=== PATIENT | female | born 1945 | race Asian ===

== ENCOUNTER → 2017-02-08 | Outpatient (CLI) | payer OTHER ==
[~2017-02-08] MED LIST: ALEN70TA4 PO; ASCO500C5 PO; ASPI-391 PO; ASPI81TA28 PO; CALC-452 PO; DIPH25TA24 PO; LPT10 PO; LUTE20CA PO; TYL325X PO; VITA400C3 PO; lovaza
== END | disposition home or self-care (01) ==
LOC: C.PAPS 13:11
PROVIDERS: ATTEND Family Medicine
DX: Z01.411 Encounter for gynecological examination (general) (routine) with abnormal findings (principal); N95.2 Postmenopausal atrophic vaginitis

== ENCOUNTER → 2017-03-22 | Outpatient (CLI) | payer OTHER ==
--- NOTE | 2017-03-22 15:07 | MAMMOGRAPHY REPORT ---
BILATERAL DIGITAL SCREENING MAMMOGRAM TOMOSYNTHESIS WITH CAD: 03/22/2017 CLINICAL HISTORY: Routine screening. TECHNIQUE: Breast tomosynthesis in addition to standard 2D mammography was performed. Current study was also evaluated with a Computer Aided Detection (CAD) system. COMPARISON: Comparison is made to exams dated: 02/13/2016 mammogram, 02/08/2015 mammogram, 01/25/2014 mammogram, 12/24/2012 mammogram, 12/11/2011 mammogram, and 09/04/2010 mammogram - [facility]. BREAST COMPOSITION: There are scattered areas of fibroglandular density in both breasts. FINDINGS: No suspicious masses, calcifications, or areas of architectural distortion are noted in ei ther breast. There has been no significant interval change compared to prior exams. IMPRESSION: ACR BI-RADS CATEGORY 1: NEGATIVE There is no mammographic evidence of malignancy. A 1 year screening mammogram is recommended. The pa tient will receive written notification of the results. Approximately 10% of breast cancers are not detected with mammography. A negative mammographic report should not delay biopsy if a clinically suggestive mass is present. Ximena Sanchez M.D. ah/:03/22/2017 12:26:47 [employer] Forming Machine Setter: Lillie HICKS(Ghassan)(M), [facility] letter sent: Normal 1/2 BI-RADS Code: ACR BI-RADS Category 1: Negative
== END | disposition home or self-care (01) ==
LOC: C.MAMM 11:50
PROVIDERS: ATTEND Family Medicine
DX: Z12.31 Encounter for screening mammogram for malignant neoplasm of breast (principal)

== ENCOUNTER 2020-10-10 18:21 | Inpatient (IN) ==
--- NOTE | 2020-10-10 18:51 | Emergency Department Note ---
Impression & Plan Acute respiratory failure with hypoxemia, Pneumonia due to 2019 novel coronavirus, Elevated troponin, Elevated liver enzymes, Hypokalemia ED Provider Note NAME: ALEJANDRINA GARCÍA AGE: 75 SEX: F : 1945 ARRIVES VIA: Walk-In INFORMANT: Patient ED PROVIDER(S): Steven Mcnamara DO CHIEF COMPLAINT: shortness of breath HPI: Patient is a 75-year-old female who presents to the ER for shortness of breath. This started this past Saturday with a cough, congestion, and loss of taste and smell. She admits to shortness of breath as well. Multiple family members have been sick with similar symptoms that she has been taking care. She notes that shortness of breath has gotten significantly worse over the past 24 hours. Denies any fevers. No belly pain, nausea, vomiting, or diarrhea. No other exacerbating remitting factors. She does not wear oxygen at home. ROS: See above HPI for pertinent positives & negatives. A total of 10 systems reviewed and were otherwise negative. PAST MEDICAL HISTORY:See Below PAST SURGICAL HISTORY:See Below FAMILY HISTORY:See Below SOCIAL HISTORY:See Below HOME MEDICATIONS:See Below ALLERGIES:See Below VITALS:See Below PHYSICAL EXAMINATION: GENERAL: Sitting up in bed, alert, ill-appearing, dyspneic with conversation, EYE EXAM: normal conjunctiva. OROPHARYNX: no exudate, no erythema, lips, buccal mucosa, and tongue normal and mucous membranes are moist NECK: supple, no nuchal rigidity, no adenopathy, non-tender LUNGS: Clear to auscultation. Normal chest wall mechanics HEART: no murmurs, S1 normal and S2 normal ABDOMEN: abdomen soft, non-tender, normo-active bowel sounds, no masses, no rebound or guarding. UPPER EXTREMITIES: upper extremities are grossly normal. LOWER EXTREMITIES: No pitting edema. NEURO EXAM: Normal sensorium, cranial nerves II-XII grossly intact, normal speech, no gross weakness of arms, no gross weakness of legs. MEDICAL DECISION MAKING: Patient is a 75-year-old female who was called to the room as I placed her in B1. She was hypoxic at 50% on room air. IV was established blood work was obtained. She was placed on BiPAP. She was fairly tachypneic. Labs show leukocytosis 20,000. No significant anemia. D-dimer was elevated at 4000. BMP with a hypokalemia and hypochloremia with a creatinine 1.4. Lactate was 1.4. LFTs were elevated. Troponin was elevated 0.052 which I do favor secondary to demand from the hypoxia. Lipase was normal. Patient was Covid positive. Chest x-ray with multifocal pneumonia. She is given IV cefepime. She was updated bedside. She improved significantly on BiPAP. She was discussed with the hospitalist admitted for further work-up. Will defer to the hospitalist for the elevated D-dimer at this time as patient is on BiPAP and does have multifocal pneumonia with Covid positive. Triage Nursing notes reviewed. Limited review of prior medical records performed Vital Signs: reviewed and remarkable for tachy, hypoxic Differential diagnosis: Differential diagnoses includes but is not limited to pneumonia, bronchitis, COPD/Asthma exacerbation, pneumothorax, pulmonary embolism, congestive heart failure, acute coronary syndrome ER treatment provided: See below Diagnostics interpreted by me: ECG: Sinus tachycardia rate of 117 Left axis No PVCs Nonspecific ST wave changes in the lateral leads QTC 387 Cardiac Monitoring: An order was placed for continuous cardiac monitoring. The monitor shows a rate of 125 with sinus rhythm. Laboratory studies: As stated above and show below. Imaging studies: Portable AP upright 1 view of the chest shows multifocal pneumonia Consultation(s): Discussed with Hasmukh Mcdonnell Procedures: none Critical Care: I have personally spent 45 minutes of critical care time in the direct managem ent of this patient. This includes bedside care, interpretation of diagnostic studies, and testing, discussion with consultants, patient, and family members, and other required patient management activities. This 45 minutes is in excess of all separately billable procedures. Past Med/Surg History Medical History (Updated 10/11/20 @ 00:29 by Steven Mcnamara DO) Anxiety Hyperlipidemia Surgical History (Updated 06/16/18 @ 11:14 by Aaliyah Lockhart RN) History of appendectomy with right salpingo-oophorectomy History of colonoscopy History of esophagogastroduodenoscopy (EGD) History of right salpingo-oophorectomy History of umbilical hernia repair had left tubal ligation at same time Status post tubal ligation left with hernia repair Family History (Updated 06/16/18 @ 11:13 by Aaliyah Lockhart RN) Other No family history of adverse response to anesthesia Social History Smoking Status: Former smoker Second Hand Exposure: No; Do You Dip or Chew Tobacco: No; Tobacco Cessation Education Requested by Patient: No Hx Alcohol Use: Yes Alcohol type: wine Hx Substance Use: No Preferred Language: Peruvian Communication Ability: Effective Management Intern Required: No Beliefs That Will Affect Care: None Current Living Situation: Spouse Other Information That Helps Us Care for You: No Feels Safe at Home: Yes Safety Concerns: Feels Safe At This Time Assistive Devices: BiPap Assistive Devices Comment: on bipap here Allergies Allergies Allergy/AdvReac Type Severity Reaction Status Date / Time Sulfa (Sulfonamide Allergy Mild itchy and Verified 10/10/20 20:08 Antibiotics) feeling drained Home Meds Home Medications Medication Instructions Recorded Confirmed Glucosamine Chondroitin PLUS 200 mcg PO QDL 06/16/18 10/10/20 acetaminophen 325 mg tablet 325 - 650 mg PO Q6H PRN 06/16/18 10/10/20 (Tylenol) alendronate 70 mg tablet (Fosamax) 1 tab PO WK 06/16/18 10/10/20 ascorbic acid (vitamin C) 500 mg 500 mg PO QDL 06/16/18 10/10/20 tablet (Vitamin C) aspirin 81 mg tablet,delayed 81 mg PO QDL 06/16/18 10/10/20 release atorvastatin 10 mg tablet 10 mg PO HS 06/16/18 10/10/20 biotin 1 mg tablet 1 mg PO QAM 06/16/18 10/10/20 calcium carbonate 600 mg (1,500 2 tab PO BID 06/16/18 10/10/20 mg)-vitamin D3 400 unit tablet (Calcium 600 + D(3)) ibuprofen 200 mg tablet 400 mg PO QAM 06/16/18 10/10/20 lutein 20 mg tablet 20 mg PO QDL 06/16/18 10/10/20 magnesium oxide 250 mg PO QDL 06/16/18 10/10/20 omega 3 350 mg-dha 235 mg-epa 90 3 cap PO QAM 06/16/18 10/10/20 mg-fish oil 597 mg capsule,delay rel ([place]-3) pediatric multivit no.43 with iron 1 tab PO QAM 06/16/18 10/10/20 fumarate 18 mg iron chewable tablet (Flintstones Complete (iron)) vitamin E 400 unit capsule 400 unit PO QDL 06/16/18 10/10/20 escitalopram oxalate 20 mg tablet 20 mg PO DAILY 10/10/20 10/10/20 Results & Data (ED) Vital Signs Vital Signs - 24 hr 10/10/20 18:32 10/10/20 18:45 10/10/20 19:06 Temperature 36.8 C Temperature Source Temporal Artery Scan Pulse Rate 122 H 105 H Pulse Rate [Right] 110 H Pulse Rate from SpO2 Sensor 106 H Pulse Rhythm [Right] Regular Pulse Strength [Right] Normal Respiratory Rate 26 H 30 H 25 H Respiratory Effort / Characteristics Non-Labored Respiratory Depth Normal Respiratory Pattern Blood Pressure 135/72 170/76 H Blood Pressure [Right Arm] 170/76 H Blood Pressure Mean 93 107 Blood Pressure Mean [Right Arm] 107 Blood Pressure Position [Right Arm] Lying Pulse Oximetry 54 L 97 97 Oxygen Delivery Method Room Air BiPAP Fraction of Inspired Oxygen Sepsis Recent Fever Within 48 Hours No Sepsis New/Unexplained Change in Mental Status N/A Sepsis Action Taken by Nursing No Action Required 10/10/20 19:07 10/10/20 19:09 10/10/20 19:20 Temperature Temperature Source Pulse Rate 110 H 108 H Pulse Rate [Right] Pulse Rate from SpO2 Sensor 109 H Pulse Rhythm [Right] Pulse Strength [Right] Respiratory Rate 35 H 34 H Respiratory Effort / Characteristics Spontaneous Respiratory Depth Respiratory Pattern Tachypnea Blood Pressure Blood Pressure [Right Arm] Blood Pressure Mean Blood Pressure Mean [Right Arm] Blood Pressure Position [Right Arm] Pulse Oximetry 98 97 95 Oxygen Delivery Method BiPAP Fraction of Inspired Oxygen 80 Sepsis Recent Fever Within 48 Hours Sepsis New/Unexplained Change in Mental Status Sepsis Action Taken by Nursing 10/10/20 19:30 10/10/20 20:00 10/10/20 20:30 Temperature Temperature Source Pulse Rate 107 H 102 H 100 H Pulse Rate [Right] Pulse Rate from SpO2 Sensor 108 H 103 H 100 H Pulse Rhythm [Right] Pulse Strength [Right] Respiratory Rate 37 H 37 H 39 H Respiratory Effort / Characteristics Respiratory Depth Respiratory Pattern Blood Pressure Blood Pressure [Right Arm] Blood Pressure Mean Blood Pressure Mean [Right Arm] Blood Pressure Position [Right Arm] Pulse Oximetry 94 95 95 Oxygen Delivery Method Fraction of Inspired Oxygen Sepsis Recent Fever Within 48 Hours Sepsis New/Unexplained Change in Mental Status Sepsis Action Taken by Nursing Laboratory Data Result diagrams: 10/10/20 18:00 10/10/20 18:00 Lab Results 10/10/20 10/10/20 10/10/20 Range/Units 18:00 18:00 18:00 WBC 20.12 H (4.8-10.8) K/uL RBC 4.40 (4.2-5.4) M/uL Hgb 13.0 (12.0-16.0) g/dL POC Hgb (12.0-16.0) g/dl Hct 37.5 (37-47) % POC Hct (37-47) % MCV 85.2 (80-100) fL MCH 29.5 (25-34) pg MCHC 34.7 (32-36) g/dL RDW Std Deviation 47.4 H (36.4-46.3) fL RDW Coeff of Roxanna 15.1 H (11.5-14.5) % Plt Count 357 (130-400) K/uL MPV 11.2 H (7.4-10.4) fL Immature Gran % (Auto) 0.7 % Neut % (Auto) 87.1 % Lymph % (Auto) 9.8 % [place] % (Auto) 2.3 % Eos % (Auto) 0.0 % Baso % (Auto) 0.1 % Neut # (Auto) 17.52 H (1.4-6.5) K/uL Lymph # (Auto) 1.97 (1.2-3.4) K/uL [place] # (Auto) 0.46 (0.11-0.59) K/uL Eos # (Auto) 0.00 (0-0.5) K/uL Baso # (Auto) 0.02 (0-0.2) K/uL Immature Gran # (Auto) 0.15 H (0.00-0.02) K/uL Absolute Nucleated RBC 0.04 H (0-0) K/uL Nucleated RBC % (auto) 0.2 % APTT 28.4 (21.0-31.0) Seconds PTT Ratio 1.1 D-Dimer 4890 H* (0-500) ug/L FEU POC pH (7.35-7.45) POC pCO2 (35-46) mmHg POC pO2 (80-95) mmHg POC HCO3 (19-24) kenneth/L POC Total CO2 (24-31) mmol/L POC Base Excess (-9-1.8) kenneth/L POC ABG O2 Sat (90-95) % VBG pH (7.36-7.41) VBG pCO2 (38-50) mmHg VBG pO2 mmHg VBG HCO3 mmol/L VBG O2 Saturation % VBG Base Excess mEq/L Barometric Pressure mm/Hg POC Sodium (135-144) mmol/L Sodium 142 (136-145) mmol/L POC Potassium (3.3-5.0) mmol/L Potassium 3.2 L (3.5-5.1) mmol/L Chloride 108 H (98-107) mmol/L Carbon Dioxide 22 (21-32) mmol/L Anion Gap 12.0 H (3-11) BUN 34 H (7-18) mg/dl Creatinine 1.43 H (0.6-1.2) mg/dl Est Cr Clr Drug Dosing Not Reportable Est GFR ( Amer) 42.0 ml/min Est GFR (Non-Af Amer) 36.2 ml/min BUN/Creatinine Ratio 23.5 H (10-20) Glucose 167 H (70-99) mg/dl Calcium 9.8 (8.5-10.1) mg/dl Total Bilirubin 0.7 (0.2-1) mg/dl AST 172 H (15-37) U/L ALT 176 H (12-78) U/L Alkaline Phosphatase 134 H (45-117) U/L Troponin I 0.052 H* (0-0.045) ng/ml Total Protein 9.5 H (6.4-8.2) gm/dl Albumin 2.7 L (3.4-5.0) gm/dl Globulin 6.8 H (2.5-4.0) gm/dl Albumin/Globulin Ratio 0.4 L (0.9-2) Lipase 371 (73-393) U/L COVID-19 Eval Order SARS-CoV-2 (PCR) (Negative) 10/10/20 10/10/20 10/10/20 Range/Units 19:03 19:03 19:06 WBC (4.8-10.8) K/uL RBC (4.2-5.4) M/uL Hgb (12.0-16.0) g/dL POC Hgb 13.6 (12.0-16.0) g/dl Hct (37-47) % POC Hct 40 (37-47) % MCV (80-100) fL MCH (25-34) pg MCHC (32-36) g/dL RDW Std Deviation (36.4-46.3) fL RDW Coeff of Roxanna (11.5-14.5) % Plt Count (130-400) K/uL MPV (7.4-10.4) fL Immature Gran % (Auto) % Neut % (Auto) % Lymph % (Auto) % [place] % (Auto) % Eos % (Auto) % Baso % (Auto) % Neut # (Auto) (1.4-6.5) K/uL Lymph # (Auto) (1.2-3.4) K/uL [place] # (Auto) (0.11-0.59) K/uL Eos # (Auto) (0-0.5) K/uL Baso # (Auto) (0-0.2) K/uL Immature Gran # (Auto) (0.00-0.02) K/uL Absolute Nucleated RBC (0-0) K/uL Nucleated RBC % (auto) % APTT (21.0-31.0) Seconds PTT Ratio D-Dimer (0-500) ug/L FEU POC pH 7.37 (7.35-7.45) POC pCO2 46 (35-46) mmHg POC pO2 < 32 L (80-95) mmHg POC HCO3 26 H (19-24) kenneth/L POC Total CO2 28 (24-31) mmol/L POC Base Excess 1.0 (-9-1.8) kenneth/L POC ABG O2 Sat 21.0 L (90-95) % VBG pH (7.36-7.41) VBG pCO2 (38-50) mmHg VBG pO2 mmHg VBG HCO3 mmol/L VBG O2 Saturation % VBG Base Excess mEq/L Barometric Pressure mm/Hg POC Sodium 146 H (135-144) mmol/L Sodium (136-145) mmol/L POC Potassium 3.1 L (3.3-5.0) mmol/L Potassium (3.5-5.1) mmol/L Chloride (98-107) mmol/L Carbon Dioxide (21-32) mmol/L Anion Gap (3-11) BUN (7-18) mg/dl Creatinine (0.6-1.2) mg/dl Est Cr Clr Drug Dosing Est GFR ( Amer) ml/min Est GFR (Non-Af Amer) ml/min BUN/Creatinine Ratio (10-20) Glucose (70-99) mg/dl Calcium (8.5-10.1) mg/dl Total Bilirubin (0.2-1) mg/dl AST (15-37) U/L ALT (12-78) U/L Alkaline Phosphatase (45-117) U/L Troponin I (0-0.045) ng/ml Total Protein (6.4-8.2) gm/dl Albumin (3.4-5.0) gm/dl Globulin (2.5-4.0) gm/dl Albumin/Globulin Ratio (0.9-2) Lipase (73-393) U/L COVID-19 Eval Order Covid19 at [facility] SARS-CoV-2 (PCR) POSITIVE A* (Negative) 10/10/20 Range/Units 19:59 WBC (4.8-10.8) K/uL RBC (4.2-5.4) M/uL Hgb (12.0-16.0) g/dL POC Hgb (12.0-16.0) g/dl Hct (37-47) % POC Hct (37-47) % MCV (80-100) fL MCH (25-34) pg MCHC (32-36) g/dL RDW Std Deviation (36.4-46.3) fL RDW Coeff of Roxanna (11.5-14.5) % Plt Count (130-400) K/uL MPV (7.4-10.4) fL Immature Gran % (Auto) % Neut % (Auto) % Lymph % (Auto) % [place] % (Auto) % Eos % (Auto) % Baso % (Auto) % Neut # (Auto) (1.4-6.5) K/uL Lymph # (Auto) (1.2-3.4) K/uL [place] # (Auto) (0.11-0.59) K/uL Eos # (Auto) (0-0.5) K/uL Baso # (Auto) (0-0.2) K/uL Immature Gran # (Auto) (0.00-0.02) K/uL Absolute Nucleated RBC (0-0) K/uL Nucleated RBC % (auto) % APTT (21.0-31.0) Seconds PTT Ratio D-Dimer (0-500) ug/L FEU POC pH (7.35-7.45) POC pCO2 (35-46) mmHg POC pO2 (80-95) mmHg POC HCO3 (19-24) kenneth/L POC Total CO2 (24-31) mmol/L POC Base Excess (-9-1.8) kenneth/L POC ABG O2 Sat (90-95) % VBG pH 7.41 (7.36-7.41) VBG pCO2 45 (38-50) mmHg VBG pO2 19 mmHg VBG HCO3 28 mmol/L VBG O2 Saturation < 60.0 % VBG Base Excess 2.7 mEq/L Barometric Pressure 734.0 mm/Hg POC Sodium (135-144) mmol/L Sodium (136-145) mmol/L POC Potassium (3.3-5.0) mmol/L Potassium (3.5-5.1) mmol/L Chloride (98-107) mmol/L Carbon Dioxide (21-32) mmol/L Anion Gap (3-11) BUN (7-18) mg/dl Creatinine (0.6-1.2) mg/dl Est Cr Clr Drug Dosing Est GFR ( Amer) ml/min Est GFR (Non-Af Amer) ml/min BUN/Creatinine Ratio (10-20) Glucose (70-99) mg/dl Calcium (8.5-10.1) mg/dl Total Bilirubin (0.2-1) mg/dl AST (15-37) U/L ALT (12-78) U/L Alkaline Phosphatase (45-117) U/L Troponin I (0-0.045) ng/ml Total Protein (6.4-8.2) gm/dl Albumin (3.4-5.0) gm/dl Globulin (2.5-4.0) gm/dl Albumin/Globulin Ratio (0.9-2) Lipase (73-393) U/L COVID-19 Eval Order SARS-CoV-2 (PCR) (Negative) Administered Medications Atorvastatin Calcium (Atorvastatin 10 Mg Tab) 10 mg PO HS CHELSEY Stop: 11/10/20 00:00 Last Admin: 10/11/20 00:07 Dose: 10 mg Documented by: [id number] Sodium Chloride (Nss 1000ml) 1,000 mls @ 125 mls/hr IV .Q8H CHELSEY Stop: 10/11/20 15:16 Last Admin: 10/11/20 00:04 Dose: 125 mls/hr Documented by: [id number] Discontinued Medications Cefepime HCl (Maxipime) 2,000 mg in 20 mls @ 5 mls/min IV NOW STA; Protocol Stop: 10/10/20 19:32 Last Admin: 10/10/20 20:37 Dose: 5 mls/min Documented by: [id number] Sodium Chloride (Nss 1000ml) 1,000 mls @ 999 mls/hr IV .Q1H1M ONE Stop: 10/10/20 20:30 Last Infusion: 10/10/20 22:07 Dose: 0 mls/hr Documented by: [id number] Admin: 10/10/20 20:36 Dose: 999 mls/hr Documented by: [id number] Remdesivir 200 mg/ Sodium (Chloride) 250 mls @ 125 mls/hr IV ONE STA; Protocol Stop: 10/10/20 22:55 Last Admin: 10/10/20 22:07 Dose: 125 mls/hr Documented by: [id number] Imaging Data Radiologist's Impression: Chest X-Ray 10/10/20 18:42 SINGLE VIEW CHEST CLINICAL HISTORY: Atypical chest pain. FINDINGS: An AP, portable, upright chest radiograph is obtained. No prior studies are available for comparison at the time of dictation. The cardiomediastinal silhouette is unremarkable noting atherosclerotic calcification of the thoracic aorta. There is multifocal airspace consolidation, greatest at the lung bases. No large pleural effusion or pneumothorax is seen. The skeletal structures are osteopenic. The bony thorax is grossly intact. IMPRESSION: Multifocal airspace consolidation is typical for pneumonia. Clinical correlation will be required and radiographic follow-up to resolution is rec ommended. ACT 112: Negative or not required by law. Electronically signed by: Raf Mckeon M.D. 10/10/2020 6:57 PM Discharge Plan Visit Data Chief Complaint: Illness Stated Complaint: DEHYDRATED ED Provider: Steven Mcnamara Discharge Problem: Acute respiratory failure with hypoxemia, Pneumonia due to 2019 novel coronavirus, Elevated troponin, Elevated liver enzymes, Hypokalemia Patient Disposition: Admitted As Inpatient Discharge Instructions Interventions: ED Discharge Assessment Last Done: 10/10/20 22:40
[2020-10-10 18:56] LABS: Basophils # (auto) 0.02 K/uL (0-0.2); Basophils % (auto) 0.1 %; Hematocrit (blood only) 37.5 % (37-47); Immature Granulocytes # (auto) 0.15 K/uL (0.00-0.02); Immature Granulocytes % (auto) 0.7 %; Lymphocytes # (auto) 1.97 K/uL (1.2-3.4); Lymphocytes % (auto) 9.8 %; Mean Corpuscular Hemoglobin 29.5 pg (25-34); Mean Corpuscular Hgb Conc 34.7 g/dL (32-36); Mean Corpuscular Volume 85.2 fL (80-100); Mean Platelet Volume 11.2 fL (7.4-10.4); Monocytes # (auto) 0.46 K/uL (0.11-0.59); Monocytes % (auto) 2.3 %; Neutrophils # (auto) 17.52 K/uL (1.4-6.5); Neutrophils % (auto) 87.1 %; Nucleated RBC # (auto) 0.04 K/uL (0-0); Nucleated RBC % (auto) 0.2 %; Platelet Count 357 K/uL (130-400); RDW Coefficient of Variation 15.1 % (11.5-14.5); RDW Standard Deviation 47.4 fL (36.4-46.3); White Blood Count 20.12 K/uL (4.8-10.8)
--- NOTE | 2020-10-10 18:58 | XRay Report ---
SINGLE VIEW CHEST CLINICAL HISTORY: Atypical chest pain. FINDINGS: An AP, portable, upright chest radiograph is obtained. No prior studies are available for c omparison at the time of dictation. The cardiomediastinal silhouette is unremarkable noting atherosc lerotic calcification of the thoracic aorta. There is multifocal airspace consolidation, greatest at the lung bases. No large pleural effusion or pneumothorax is seen. The skeletal structures are osteop enic. The bony thorax is grossly intact. IMPRESSION: Multifocal airspace consolidation is typical for pneumonia. Clinical correlation will be required and radiographic follow-up to resolution is recommended. ACT 112: Negative or not required by law. Electronically signed by: Raf Mckeon M.D. 10/10/2020 6:57 PM
[2020-10-10 19:16] LABS: Alanine Aminotransferase 176 U/L (12-78); Albumin Level 2.7 gm/dl (3.4-5.0); Aspartate Aminotransferase 172 U/L (15-37); BUN Creatinine Ratio 23.5 (10-20); Blood Urea Nitrogen 34 mg/dl (7-18); Calcium 9.8 mg/dl (8.5-10.1); Carbon Dioxide 22 mmol/L (21-32); Chloride 108 mmol/L (98-107); Est GFR (Non-African American) 36.2 ml/min; Glucose 167 mg/dl (70-99); Lipase 371 U/L (73-393); Potassium 3.2 mmol/L (3.5-5.1); Sodium 142 mmol/L (136-145)
[2020-10-10 19:21] LABS: Partial Thromboplastin Ratio 1.1; Partial Thromboplastin Time 28.4 Seconds (21.0-31.0)
[2020-10-10 19:21] LABS: iSTAT Arterial Blood Gas HCO3 26 meg/L (19-24); iSTAT Arterial Blood Gas pCO2 46 mmHg (35-46); iSTAT Arterial Blood Gas pH 7.37 (7.35-7.45); iSTAT Arterial Blood Gas pO2 < 32 mmHg (80-95); iSTAT Carbon Dioxide 28 mmol/L (24-31); iSTAT Hematocrit 40 % (37-47); iSTAT Hemoglobin 13.6 g/dl (12.0-16.0); iSTAT Potassium 3.1 mmol/L (3.3-5.0); iSTAT Sodium 146 mmol/L (135-144)
[2020-10-10 19:24] LABS: D Dimer 4890 ug/L FEU (0-500)
[2020-10-10] MEDS ORDERED: CEFEPIME 2,000 MG/20 ML VIAL IV STA (19:29)
[2020-10-10] MEDS ORDERED: SODIUM CHLORIDE 0.9% 1000ML 1,000 ML IV ONE (19:30)
[2020-10-10 19:34] LABS: Albumin Globulin Ratio 0.4 (0.9-2); Alkaline Phosphatase 134 U/L (45-117); Bilirubin,Total 0.7 mg/dl (0.2-1); Globulin 6.8 gm/dl (2.5-4.0); Total Protein 9.5 gm/dl (6.4-8.2); Troponin I 0.052 ng/ml (0-0.045)
[2020-10-10 20:17] LABS: Base Excess VBG 2.7 mEq/L; HCO3 VBG 28 mmol/L; PCO2 VBG 45 mmHg (38-50); PO2 VBG 19 mmHg; pH VBG 7.41 (7.36-7.41)
[2020-10-10 20:39] LABS: Oxygen Saturation VBG < 60.0 %
[2020-10-10] MEDS ORDERED: REMDESIVIR 200 MG in SODIUM CHLORIDE 0.9% 210 ML IV STA (20:56)
--- NOTE | 2020-10-10 21:14 | History & Physical Report ---
Date of Service October 10, 2020 Assessment & Plan (1) Acute respiratory failure with hypoxemia: Plan: Mrs. Suero is a 75 yo woman who presented with fever, cough and fatigue of 3 days duration, admitted for COVID 19 pneumonia. - septic, SIRS criteria met on admission (WBC, RR, HR). Lactate not elevated. 30mg/kg IV fluid bolus ordered on admission. - O2 sat < 94, classifying as severe COVID 19 - procal ordered to assess for superimposed bacterial PNA - Azithromycin 500mg IV daily - Remdesirvir - Dexamethasone 6mg for 10 days - zinc sulfate 220mg daily - vit D 5,000 IU - pulmonology consult placed to evaluate for tocilizumab - continue supplemental o2 as needed (2) Elevated troponin: Plan: - trop 0.052 on arrival - patient denies CP on exam - EKG without acute ST segment changes - likely type II TN, supply-demand mismatch - trend serial levels (3) Elevated d-dimer: Plan: - 4890 on admission - given kidney function, Chest CTA not advisable due to risk of contrast nephropathy - will order b/l LE venous duplex + consider VQ scan in AM - alternatively, if Cr improves with IV hydration overnight, Chest CTA may be feasible in AM - will start on therapeutic IV Heparin overnight (without bolus) (a lengthy discussion was held with pharmacy on IV Heparin vs. SQ Lovenox --> ultimately recommend IV Heparin due to unknown baseline kidney function) (4) Elevated liver enzymes: Plan: - AST and ALT elevated - trend CMP - avoid Acetaminophen - likely related to acute COVID 19 infection vs. hepatic congestion secondary to new onset CHF (in the setting of PNA and type II TN). BNP ordered to asses the latter (5) Hypokalemia: Plan: - K level at 3.2 on admission - mag at 2.9 - 40 meQ oral supplement ordered - recheck CMP in AM (6) Metabolic acidosis: Plan: - ph at 7.37, bicarb slightly low at 22, anion gap at 12. - incomplete respiratory compensation on admission - trend BMP Dvt ppx: On therapeutic heparin Diet: heart healthy Dispo: Med surg with tele, COVID precautions Code: Full, I discussed with patient History of Present Illness Primary Care Provider: Manuel Neves Mrs. Suero is a 75 yo woman who presented to [facility] for evaluation of fever, productive cough and fatigue over the past 3 days. Prior to this, she and her were traveling in their RV - they were visiting each of their 4 adult children who live in different states. To her knowledge, none of her family members were sick. Upon arrival home today, she contacted her PCP for evaluation of her symptoms, but since he was out of town, she was directed to come to the emergency department. She and her had not been vaccinated against COVID 19. Social Hx. 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 She is a non-smoker. She is not immunocompromised. No history of underlying lung disease. In the ED, she was afebrile with a HR of 110 bpm, a RR of 26 and an initial O2 sat of 54. After being placed on BiPAP, O2 sat improved to 97. VBG showing pH of 7.37, pCo2 of 46. Her WBC was elevated to 20 with neutrophil predominance. COVID 19 positive. Her K was low at 3.2. Her creatinine was elevated to 1.4 (baseline is unknown), BUN elevated to 34. Trop elevated to 0.052. Lipase normal. AST elevated to 172, ALT to 176, Alk phos to 134. D dimer to 4890. EKG showing sinus tach. CXR showing multifocal PNA. She was given a dose of Cefepime and 1 liter of NSS. Allergies Allergy/AdvReac Type Severity Reaction Status Date / Time Sulfa (Sulfonamide Allergy Mild itchy and Verified 10/10/20 20:08 Antibiotics) feeling drained Home Medications Medication Instructions Recorded Confirmed Type Glucosamine Chondroitin PLUS 200 mcg PO QDL 06/16/18 10/10/20 History acetaminophen 325 mg tablet 325 - 650 mg PO Q6H PRN 06/16/18 10/10/20 History (Tylenol) alendronate 70 mg tablet (Fosamax) 1 tab PO WK 06/16/18 10/10/20 History ascorbic acid (vitamin C) 500 mg 500 mg PO QDL 06/16/18 10/10/20 History tablet (Vitamin C) aspirin 81 mg tablet,delayed 81 mg PO QDL 06/16/18 10/10/20 History release atorvastatin 10 mg tablet 10 mg PO HS 06/16/18 10/10/20 History biotin 1 mg tablet 1 mg PO QAM 06/16/18 10/10/20 History calcium carbonate 600 mg (1,500 2 tab PO BID 06/16/18 10/10/20 History mg)-vitamin D3 400 unit tablet (Calcium 600 + D(3)) ibuprofen 200 mg tablet 400 mg PO QAM 06/16/18 10/10/20 History lutein 20 mg tablet 20 mg PO QDL 06/16/18 10/10/20 History magnesium oxide 250 mg PO QDL 06/16/18 10/10/20 History omega 3 350 mg-dha 235 mg-epa 90 3 cap PO QAM 06/16/18 10/10/20 History mg-fish oil 597 mg capsule,delay rel ([place]-3) pediatric multivit no.43 with iron 1 tab PO QAM 06/16/18 10/10/20 History fumarate 18 mg iron chewable tablet (Flintstones Complete (iron)) vitamin E 400 unit capsule 400 unit PO QDL 06/16/18 10/10/20 History escitalopram oxalate 20 mg tablet 20 mg PO DAILY 10/10/20 10/10/20 History Past Med/Surg History Medical History (Updated 10/11/20 @ 10:29 by Manjit Peñaloza MD) Anxiety Hyperlipidemia Surgical History (Updated 06/16/18 @ 11:14 by Aaliyah Lockhart, CODI) History of appendectomy with right salpingo-oophorectomy History of colonoscopy History of esophagogastroduodenoscopy (EGD) History of right salpingo-oophorectomy History of umbilical hernia repair had left tubal ligation at same time Status post tubal ligation left with hernia repair Family History (Updated 06/16/18 @ 11:13 by Aaliyah Lockhart, RN) Other No family history of adverse response to anesthesia Social History Smoking Status: Former smoker Second Hand Exposure: No; Hx Alcohol Use: Yes Alcohol type: wine Hx Substance Use: No Preferred Language: Greenlandic Communication Ability: Effective 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 Beliefs That Will Affect Care: None marital status: Current Living Situation: Spouse Feels Safe at Home: Yes Assistive Devices: BiPap Review of Systems Gastrointestinal: no nausea, no vomiting and no diarrhea/loose stools Physical Exam Constitutional: WD/WN, vitals as above cooperative Eyes: + anicteric sclerae ENMT: external ear and nose normal, oropharynx normal Neck: trachea midline Respiratory: normal respiratory effort; no labored breathing Auscultation: + crackles (present diffusely throughout bilateral lung burroughs); no wheezes Cardiovascular: RRR, no murmur, no edema Extremities: + pedal edema (trace b/l) Gastrointestinal (Abdomen): normal bowel sounds, soft, nontender, no hepatosplenomegaly Musculoskeletal: Head/Neck/Chest: normocephalic and head atraumatic Skin: no rashes, warm and dry Psychiatric: A+Ox3, euthymic affect Results & Data Results & Data ([facility]) Vital Signs (Past 12 Hours) Vital Signs Temp Pulse Pulse Resp BP BP Pulse Ox 10/10/20 19:09 97 10/10/20 19:07 110 H 35 H 98 10/10/20 19:06 110 H 25 H 170/76 H 97 10/10/20 18:32 36.8 C 122 H 26 H 135/72 54 L Supervising Physician Co-Signing Physician Notes Attending addendum: I have physically seen this patient, have supervised the medical residents activities, and agree with the H&P unless as otherwise noted. Assessment and Plan: Acute respiratory failure with hypoxemia/COVID-19 pneumonia/superimposed bacterial pneumonia- Dexamethasone 6 mg IV daily Remdesivir IV per protocol Vitamin D 5000 intentions p.o. daily Zinc sulfate 220 mg p.o. daily Ceftriaxone 1 g IV daily Azithromycin 5 mg IV daily Proventil HFA 2 puffs 4 times daily DuoNebs every 2 hours as needed Lovenox not possible due to decreased renal function heparin IV, low-dose per protocol If creatinine clearance improved in the morning, do CTA, otherwise consider VQ scan Order venous Dopplers Consult pulmonology to assess for possible tocilizumab Elevated troponin- The patient will be admitted to telemetry for serial cardiac enzymes, serial EKG's, cardiac rhythm monitoring and a 2-D echocardiogram with Dopplers. Likely type II TN/supply demand mismatch Remaining orders and notations as noted Resident Activity Tracking Resident Involvement: Resident Care Provided Care Provided: Adult Hospital Medicine
[2020-10-10] MEDS ORDERED: POTASSIUM CHLORIDE CRTAB 20 MEQ TABCR PO STA (23:15)
[2020-10-10] MEDS ORDERED: ONDANSETRON INJ 2 MG/ML 2 ML VIAL IV PRN (23:17)
[2020-10-10] MEDS ORDERED: HEPARIN SODIUM/DEXTROSE 25,000 UNITS/500 ML BAG IV SCH (23:17)
[2020-10-10] MEDS ORDERED: Heparin IV Adult Wt-Based Standard *NO* Bolus Protocol IV SCH (23:17)
[2020-10-11] MEDS ORDERED: ATORVASTATIN 10 MG TAB PO SCH
[2020-10-11] MEDS: SODIUM CHLORIDE 0.9% 1000ML 1,000 ML IV SCH ×2 (00:04→08:09)
[2020-10-11 00:08] LABS: Magnesium 2.9 mg/dl (1.8-2.4)
[2020-10-11 00:29] LABS: Fibrinogen > 860 mg/dl (184-400)
[2020-10-11] MEDS: SODIUM CHLORIDE 0.9% 10ML FLUSH IV SCH ×2 (00:55→20:56)
[2020-10-11] MEDS ORDERED: SODIUM CHLORIDE 0.9% 1000ML 500 ML IV ONE ×2 (01:13→05:06)
[2020-10-11] MEDS: cefTRIAXone SODIUM 1,000 MG in DEXTROSE 5% 50 ML IV SCH (05:27)
--- NOTE | 2020-10-11 07:08 | Ultrasound Report ---
BILATERAL LOWER EXTREMITY VENOUS DOPPLER HISTORY: Acute pain and swelling of the lower legs elevated d dimer COMPARISON STUDY: None. FINDINGS: There is normal compressibility, flow, and augmentation within the bilateral lower extremit y deep venous systems. IMPRESSION: No DVT within the right or left lower extremity. ACT 112: Negative or not required by law. Electronically signed by: Tristan Haider M.D. 10/11/2020 7:07 AM
[2020-10-11 07:15] LABS: Hemoglobin 10.5 g/dL (12.0-16.0); Mean Corpuscular Hemoglobin 29.1 pg (25-34); Mean Corpuscular Hgb Conc 33.9 g/dL (32-36); Mean Corpuscular Volume 85.9 fL (80-100); Platelet Count 254 K/uL (130-400); RDW Coefficient of Variation 15.2 % (11.5-14.5); RDW Standard Deviation 48.2 fL (36.4-46.3); Red Blood Count 3.61 M/uL (4.2-5.4); White Blood Count 13.95 K/uL (4.8-10.8)
[2020-10-11 07:23] LABS: Partial Thromboplastin Ratio 1.7; Partial Thromboplastin Time 44.2 Seconds (21.0-31.0)
[2020-10-11 07:37] LABS: Basophils # (auto) 0.01 K/uL (0-0.2); Basophils % (auto) 0.1 %; Immature Granulocytes # (auto) 0.08 K/uL (0.00-0.02); Immature Granulocytes % (auto) 0.6 %; Lymphocytes # (auto) 0.97 K/uL (1.2-3.4); Monocytes # (auto) 0.31 K/uL (0.11-0.59); Monocytes % (auto) 2.2 %; Neutrophils # (auto) 12.58 K/uL (1.4-6.5); Neutrophils % (auto) 90.1 %
[2020-10-11 07:55] LABS: Albumin Globulin Ratio 0.3 (0.9-2); Albumin Level 1.8 gm/dl (3.4-5.0); BUN Creatinine Ratio 29.6 (10-20); Bilirubin,Total 0.4 mg/dl (0.2-1); Calcium 7.6 mg/dl (8.5-10.1); Creatinine Clr Calc Pharmacy 41.6 ml/min; Est GFR (African American) 69.8 ml/min; Est GFR (Non-African American) 60.2 ml/min; Globulin 5.2 gm/dl (2.5-4.0); Potassium 3.5 mmol/L (3.5-5.1); Troponin I 0.154 ng/ml (0-0.045)
--- NOTE | 2020-10-11 08:06 | Hospitalist Progress Note ---
Date of Service October 11, 2020 Assessment & Plan (1) Acute respiratory failure with hypoxemia: Plan: Mrs. Suero is a 75 yo woman who presented with fever, cough and fatigue of 3 days duration, admitted for COVID 19 and bacterial pneumonia. - septic, SIRS criteria met on admission (WBC, RR, HR). Lactate not elevated. 30mg/kg IV fluid bolus ordered on admission. Will discontinue further IV fluids given respiratory compromise in setting of COVID-19. - O2 sat < 94, classifying as severe COVID 19 - Aim O2 sats > 94% (2) Pneumonia due to 2019 novel coronavirus: Plan: Remdesirvir 200mg yesterday, continue 100mg IV daily for 4 more days. Will get LFTs daily while on this as already mildly elevated. Dexamethasone 6mg IV daily for 10 days or until discharge Will defer tocilizumab to pulmonology (3) Bacterial pneumonia: Plan: Cefepime given in ER. Started on Ceftriaxone 1g IV daily by admitting physician Start Azithromycin 500mg IV now, then 250mg IV daily for 4 days (4) Elevated troponin: Plan: - consistent with type II [place], supply-demand mismatch (5) Elevated d-dimer: Plan: - 4890 on admission - US doppler negative for DVT - if tachypnea improves will get CT for PE - continue IV heparin for now (6) Elevated liver enzymes: Plan: - AST and ALT elevated - trend CMP - avoid Acetaminophen - likely related to acute COVID 19 infection (7) Hypokalemia: (8) Metabolic acidosis: Plan: - ph at 7.37, bicarb slightly low at 22, anion gap at 12. - incomplete respiratory compensation on admission - trend BMP Plan: Dvt ppx: On therapeutic heparin Diet: heart healthy Dispo: PCU, COVID precautions Code: Full, I discussed with patient Admission and Anticipated Discharge Date Admission Date: October 10, 2020 Subjective Able to speak in short sentences. On BiPAP proned. Concern regarding black stool today. Exposed to multiple family members with viral illnesses 2-3 weeks ago but no one was tested at that time. Feels she has been unwell for approximately the last week. No fever, chills since admission. Updated her over the phone. is asymptomatic. Review of Systems Review of Systems: All systems reviewed & are unremarkable except as noted in HPI & below Physical Exam Constitutional: WD/WN, vitals as above Eyes: + anicteric sclerae; normal pupil size ENMT: external ear and nose normal, oropharynx normal Neck: trachea midline, no thyromegaly Respiratory: + retractions, + uses accessory muscles and + tachypneic; + not able to speak in complete sentence Auscultation: + diminished lung sounds (decreased throughout); no crackles, no rales and no pleural rub Cardiovascular: Rate/Rhythm: regular rate and regular rhythm Extremities: normal capillary refill; no pedal edema Gastrointestinal (Abdomen): normal bowel sounds, soft, nontender, no hepatosplenomegaly Psychiatric: A+Ox3, euthymic affect Results & Data Results & Data ([facility]) Vital Signs (Past 12 Hours) Vital Signs Temp Pulse Pulse Resp BP BP Pulse Ox 10/11/20 07:30 93 H 36 H 95 10/11/20 03:50 37.6 C H 105 H 20 135/81 95 10/11/20 03:15 108 H 26 H 95 10/10/20 23:22 37.5 C 98 H 20 157/51 H 99 10/10/20 23:19 37.5 C 98 H 20 157/51 H 96 10/10/20 22:59 98 H 10/10/20 22:01 97 H 41 H 108/80 95 10/10/20 21:55 97 H 37 H 97 10/10/20 21:31 95 H 23 91/71 L 99 10/10/20 21:01 103 H 37 H 132/59 L 91 10/10/20 20:30 100 H 39 H 95 PG Care Time/CCT Total # of Minutes Spent Total Time Spent with Patient: Total time spent is greater than 50% in coordination of care (as documented) at patient's floor/unit and/or counseling p atient: Coding Level of Care Code 51233 Subseq Hosp Care Lvl 3 Diagnoses Acute respiratory failure with hypoxemia J96.01 Elevated troponin R77.8 Elevated d-dimer R79.89 Elevated liver enzymes R74.8 Hypokalemia E87.6 Metabolic acidosis E87.2 Pneumonia due to 2019 novel coronavirus U07.1; J12.82 Bacterial pneumonia J15.9
[2020-10-11] MEDS: ZINC SULFATE 220 MG CAPSULE PO SCH (08:21)
[2020-10-11] MEDS: CHOLECALCIFEROL 1,000 UNITS 25 MCG TAB PO SCH (08:21)
[2020-10-11] MEDS: ESCITALOPRAM OXALATE 20 MG TAB PO SCH (08:22)
[2020-10-11] MEDS: guaiFENesin 600 MG TABCR PO SCH ×2 (08:23→20:56)
[2020-10-11] MEDS ORDERED: AZITHROMYCIN 500 MG in DEXTROSE 5% 250 ML IV ONE (08:30)
[2020-10-11] MEDS ORDERED: dexAMETHasone 6 MG in SYRINGE 0 ML IV SCH (09:00)
--- NOTE | 2020-10-11 13:51 | Pulmonary Consultation ---
Date of Consultation October 11, 2020 Assessment & Plan (1) Pneumonia due to 2019 novel coronavirus: (2) Acute respiratory failure with hypoxemia: (3) Elevated liver enzymes: Chest x-ray 10/10/2020 personally reviewed: Portable film, fair inspiratory effort, bilateral alveolar opacities appreciated, air bronchograms appreciated left lower lobe --Acute hypoxic respiratory failure Secondary to multilobar pneumonia COVID-19 positive 10/10/20 Procalcitonin 4.75, nasal MRSA negative CRP 31.8, LDH 960 AST 179, ALT 145, alk phos 113 Continue with O2 supplementation to keep oxygen saturation between 88-92% Awake proning will be beneficial for the patient If the patient is not able to tolerate high flow transition to CPAP/BiPAP I would recommend giving EPAP minimum of 8-10 Plan: Patient does have significant opacities with CRP greater than 31 Agree with antibiotics Rocephin and azithromycin. Nasal MRSA negative Increase dexamethasone to 10 mg. Guaifenesin with flutter valve and incentive spirometry Awake proning Patient will benefit from Tocilizumab but her AST is greater than 3 times upper limit of normal. This is a contraindication for it Repeat LFTs tomorrow if liver function is getting better then we will give her a dose of tocilizumab Hold Lipitor. Patient is on heparin drip, the thought processes the patient has PE Patient has significant pulmonary infiltrates, Doppler bilateral lower extremities negative, the possibility of it being a pulmonary embolism is very low Can order CTA if want to rule out PE, patient creatinine is improving. If there is any clinical worsening in the respiratory status will take the patient to the ICU. Please note the above document was generated using voice recognition software. It may contain grammatical, syntax or spelling errors.Any formal questions or concerns about the content, text or information contained within the body of this dictation should be directly addressed to the provider for clarification. History of Present Illness Attending Physician: Manjit Peñaloza MD History of Present Illness 75-year-old female past medical history of dyslipidemia, anxiety was admitted to the hospital with complaints of fever, cough and generalized malaise going on for 3 days Patient was recently traveling around in the . She was found to be COVID-19 positive, initial O2 saturation was 54% on room air. Pulmonary consulted for severe hypoxic respiratory failure At the time of examination patient was laying prone, not in any acute distress, breathing in the low 20s She says she was doing better since coming to the hospital She was saturating 93% on 40 L, 80%. I went down to 75% FiO2 Denies any chest pain. Stated that she is able to bring up the phlegm. No nausea or vomiting. Appetite is not so good. No headache, no dizziness. Patient has not been vaccinated against COVID-19 Social history: Non-smoker, no history of asthma No birds or poultry nearby Allergies Allergy/AdvReac Type Severity Reaction Status Date / Time Sulfa (Sulfonamide Allergy Mild itchy and Verified 10/10/20 20:08 Antibiotics) feeling drained Home Medications Medication Instructions Recorded Confirmed Type Glucosamine Chondroitin PLUS 200 mcg PO QDL 06/16/18 10/10/20 History acetaminophen 325 mg tablet 325 - 650 mg PO Q6H PRN 06/16/18 10/10/20 History (Tylenol) alendronate 70 mg tablet (Fosamax) 1 tab PO WK 06/16/18 10/10/20 History ascorbic acid (vitamin C) 500 mg 500 mg PO QDL 06/16/18 10/10/20 History tablet (Vitamin C) aspirin 81 mg tablet,delayed 81 mg PO QDL 06/16/18 10/10/20 History release atorvastatin 10 mg tablet 10 mg PO HS 06/16/18 10/10/20 History biotin 1 mg tablet 1 mg PO QAM 06/16/18 10/10/20 History calcium carbonate 600 mg (1,500 2 tab PO BID 06/16/18 10/10/20 History mg)-vitamin D3 400 unit tablet (Calcium 600 + D(3)) ibuprofen 200 mg tablet 400 mg PO QAM 06/16/18 10/10/20 History lutein 20 mg tablet 20 mg PO QDL 06/16/18 10/10/20 History magnesium oxide 250 mg PO QDL 06/16/18 10/10/20 History omega 3 350 mg-dha 235 mg-epa 90 3 cap PO QAM 06/16/18 10/10/20 History mg-fish oil 597 mg capsule,delay rel ([place]-3) pediatric multivit no.43 with iron 1 tab PO QAM 06/16/18 10/10/20 History fumarate 18 mg iron chewable tablet (Flintstones Complete (iron)) vitamin E 400 unit capsule 400 unit PO QDL 06/16/18 10/10/20 History escitalopram oxalate 20 mg tablet 20 mg PO DAILY 10/10/20 10/10/20 History Patient History Medical History (Updated 10/11/20 @ 10:29 by Manjit Peñaloza MD) Anxiety Hyperlipidemia Surgical History (Updated 06/16/18 @ 11:14 by Aaliyah Lockhart, RN) History of appendectomy with right salpingo-oophorectomy History of colonoscopy History of esophagogastroduodenoscopy (EGD) History of right salpingo-oophorectomy History of umbilical hernia repair had left tubal ligation at same time Status post tubal ligation left with hernia repair Family History (Updated 06/16/18 @ 11:13 by Aaliyah Lockhart, RN) Other No family history of adverse response to anesthesia Social History Smoking Status: Former smoker Second Hand Exposure: No; Do You Dip or Chew Tobacco: No; Tobacco Cessation Education Requested by Patient: No Hx Alcohol Use: Yes Alcohol type: wine Hx Substance Use: No Preferred Language: Angolan Communication Ability: Effective Laboratory Coordinator Required: No Beliefs That Will Affect Care: None marital status: Current Living Situation: Spouse Other Information That Helps Us Care for You: No Feels Safe at Home: Yes Safety Concerns: Feels Safe At This Time Assistive Devices: BiPap Assistive Devices Comment: on bipap here Review of Systems Review of Systems: All systems reviewed & are unremarkable except as noted in Subjective Physical Exam Physical Exam: Constitutional: No acute distress HEENT: EOMI, PERRLA Respiratory system: Decreased air entry bilaterally, no wheeze, no rhonchi, positive crackles bilaterally CVS: S1-S2 positive, no murmurs or gallops Abdomen: Soft, nontender, nondistended, positive bowel sounds x4 Extremities: +2 pulses bilaterally radialis/ dorsalis pedis, no cyanosis, no edema Neuro: Awake alert oriented x3 Psych: Normal mood and affect G/U: No [place] Skin: no rashes, warm and dry Lymphatic: no cervical or axillary lymphadenopathy Results & Data Results & Data ([facility]) Vital Signs (Past 12 Hours) Vital Signs Temp Pulse Pulse Resp BP Pulse Ox 10/11/20 12:20 36.8 C 83 36 H 113/53 L 92 10/11/20 10:49 87 26 H 91 10/11/20 10:26 92 H 34 H 97 10/11/20 08:20 101 H 10/11/20 08:12 36.9 C 95 H 24 104/71 96 10/11/20 07:30 93 H 36 H 95 10/11/20 03:50 37.6 C H 105 H 20 135/81 95 10/11/20 03:15 108 H 26 H 95 10/11/20 06:55 10/11/20 06:55 PG Care Time/CCT Total # of Minutes Spent Total Time Spent with Patient: Total time spent is greater than 50% in coordination of care (as documented) at patient's floor/unit and/or counseling patient: Coding Level of Care Code 85946 Initial Inpt Care Lvl 3 Diagnoses Pneumonia due to 2019 novel coronavirus U07.1; J12.82 Acute respiratory failure with hypoxemia J96.01 Elevated liver enzymes R74.8
[2020-10-11] MEDS ORDERED: dexAMETHasone 4 MG in SYRINGE 0 ML IV SCH (16:00)
[2020-10-11 16:20] LABS: Partial Thromboplastin Ratio 2.6
[2020-10-11 16:22] LABS: Partial Thromboplastin Time 69.1 Seconds (21.0-31.0)
[2020-10-11] MEDS ORDERED: POTASSIUM CHLORIDE CRTAB 20 MEQ TABCR PO STA (16:49)
[2020-10-11] MEDS: MAGNESIUM OXIDE 400 MG TAB PO SCH (16:50)
[2020-10-11] MEDS: ASPIRIN 81 MG ECTAB PO SCH (16:50)
[2020-10-11] MEDS ORDERED: FUROSEMIDE 40 MG in SYRINGE 0 ML IV ONE (17:00)
[2020-10-11] MEDS ORDERED: PANTOprazole 40 MG in SYRINGE 0 ML IV ONE (17:45)
[2020-10-11] MEDS ORDERED: ICU PROTOCOL FOR HYPERGLYCEMIA PRN (17:47)
[2020-10-11] MEDS ORDERED: PANTOprazole 80 MG in SYRINGE 0 ML IV STA (17:59)
[2020-10-11] MEDS ORDERED: PANTOprazole 80 MG in DEXTROSE 5% 100 ML IV STA (18:16)
[2020-10-11 18:34] LABS: Hematocrit (blood only) 33.4 % (37-47); Hemoglobin 11.3 g/dL (12.0-16.0)
[2020-10-11 18:53] LABS: Albumin Level 1.9 gm/dl (3.4-5.0); BUN Creatinine Ratio 28.1 (10-20); Calcium 7.9 mg/dl (8.5-10.1); Creatinine Clr Calc Pharmacy 41.6 ml/min; Est GFR (African American) 69.8 ml/min; Est GFR (Non-African American) 60.2 ml/min; Potassium 3.4 mmol/L (3.5-5.1)
[2020-10-11 18:56] LABS: Albumin Globulin Ratio 0.4 (0.9-2); Bilirubin,Total 0.5 mg/dl (0.2-1); Globulin 5.3 gm/dl (2.5-4.0); Total Protein 7.2 gm/dl (6.4-8.2)
[2020-10-11] MEDS ORDERED: REMDESIVIR 100mg: Days 2-5 IV SCH (20:00)
[2020-10-11] MEDS: POTASSIUM CHLORIDE / WTR 10 MEQ/100 ML PLCT IV SCH ×3 (20:55→23:00)
--- NOTE | 2020-10-11 23:34 | Billing Data ---
Date of Service October 11, 2020 Coding Level of Care Code 91013 Initial Inpt Care Lvl 3
[2020-10-12] MEDS: POTASSIUM CHLORIDE / WTR 10 MEQ/100 ML PLCT IV SCH ×3 (00:19→07:46)
[2020-10-12] MEDS: cefTRIAXone SODIUM 1,000 MG in DEXTROSE 5% 50 ML IV SCH (04:59)
[2020-10-12 05:10] LABS: Hematocrit (blood only) 30.7 % (37-47); Hemoglobin 10.4 g/dL (12.0-16.0); Mean Corpuscular Hemoglobin 28.7 pg (25-34); Mean Corpuscular Hgb Conc 33.9 g/dL (32-36); Mean Corpuscular Volume 84.8 fL (80-100); Mean Platelet Volume 11.1 fL (7.4-10.4); Platelet Count 257 K/uL (130-400); RDW Coefficient of Variation 15.6 % (11.5-14.5); RDW Standard Deviation 48.8 fL (36.4-46.3); Red Blood Count 3.62 M/uL (4.2-5.4); White Blood Count 12.42 K/uL (4.8-10.8)
[2020-10-12 05:31] LABS: Albumin Level 1.9 gm/dl (3.4-5.0); BUN Creatinine Ratio 30.8 (10-20); Bilirubin Direct 0.2 mg/dl (0-0.2); Calcium 7.5 mg/dl (8.5-10.1); Creatinine Clr Calc Pharmacy 41.6 ml/min; Est GFR (African American) 69.8 ml/min; Est GFR (Non-African American) 60.2 ml/min; Potassium 3.8 mmol/L (3.5-5.1)
[2020-10-12 05:34] LABS: Basophils # (auto) 0.01 K/uL (0-0.2); Basophils % (auto) 0.1 %; Echinocytes 1+; Immature Granulocytes # (auto) 0.12 K/uL (0.00-0.02); Lymphocytes # (auto) 0.91 K/uL (1.2-3.4); Lymphocytes % (auto) 7.3 %; Monocytes # (auto) 0.21 K/uL (0.11-0.59); Monocytes % (auto) 1.7 %; Neutrophils # (auto) 11.17 K/uL (1.4-6.5); Neutrophils % (auto) 89.9 %
[2020-10-12 05:39] LABS: Albumin Globulin Ratio 0.4 (0.9-2); Bilirubin,Total 0.4 mg/dl (0.2-1); C Reactive Protein 26.8 mg/dl (0-0.29); Globulin 4.9 gm/dl (2.5-4.0); Total Protein 6.8 gm/dl (6.4-8.2)
[2020-10-12] MEDS: CHOLECALCIFEROL 1,000 UNITS 25 MCG TAB PO SCH (07:46)
[2020-10-12] MEDS: ZINC SULFATE 220 MG CAPSULE PO SCH (08:49)
[2020-10-12] MEDS: ESCITALOPRAM OXALATE 20 MG TAB PO SCH (08:49)
[2020-10-12] MEDS: guaiFENesin 600 MG TABCR PO SCH ×2 (08:49→21:49)
[2020-10-12] MEDS ORDERED: PANTOprazole 40 MG in SYRINGE 0 ML IV SCH (09:00)
[2020-10-12] MEDS: PANTOprazole 40 MG in SYRINGE 0 ML IV SCH ×2 (09:58→21:51)
[2020-10-12] MEDS: AZITHROMYCIN 250 MG in DEXTROSE 5% 250 ML IV SCH (09:59)
[2020-10-12] MEDS: dexAMETHasone 10 MG in SYRINGE 0 ML IV SCH (09:59)
--- NOTE | 2020-10-12 10:02 | Hospitalist Progress Note ---
Date of Service October 12, 2020 Assessment & Plan (1) Acute respiratory failure with hypoxemia: Plan: Mrs. Suero is a 75 yo woman who presented with fever, cough and fatigue of 3 days duration, admitted for COVID 19 and bacterial pneumonia. - septic, SIRS criteria met on admission (WBC, RR, HR). Lactate not elevated. - O2 sat < 94, classifying as severe COVID 19 - Aim O2 sats > 94%, currently requiring BiPAP (2) Pneumonia due to 2019 novel coronavirus: Plan: Remdesirvir holding due to elevated LFTs and bradycardia. Dexamethasone 10mg IV daily for 10 days or until discharge Will defer tocilizumab to ICU (3) Bacterial pneumonia: Plan: Cefepime given in ER. Continue ceftriaxone and azithromycin. (4) Elevated troponin: Plan: - consistent with type II [place], supply-demand mismatch (5) Elevated d-dimer: Plan: - 4890 on admission, given her severity of illness this appears appropriate without a pulmonary embolism - US doppler negative for DVT - if tachypnea improves consider CT for PE (6) Elevated liver enzymes: Plan: - AST and ALT elevated - trend CMP - avoid Acetaminophen - likely related to acute COVID 19 infection (7) Hypokalemia: Plan: Resolved. Plan: Dvt ppx: Heparin SQ, consider increased dose as discussed with ICU since Hemoglobin stable Diet: heart healthy Dispo: ICU, COVID precautions Code: Full Admission and Anticipated Discharge Date Admission Date: October 10, 2020 Subjective Unfortunately deteriorating oxygen requirement overnight. Chart reviewed and discussed case with nursing department chairperson. To limit SARS-COV-2 exposure patient was only viewed through window. Results & Data Results & Data ([facility]) Vital Signs (Past 12 Hours) Vital Signs Temp Pulse Pulse Resp BP Pulse Ox 10/12/20 08:02 73 28 H 91 10/12/20 08:00 36.8 C 61 39 H 109/48 L 84 L 10/12/20 07:28 36.8 C 67 26 H 116/56 L 90 10/12/20 06:28 36.8 C 64 32 H 116/50 L 92 10/12/20 05:28 36.8 C 64 35 H 104/54 L 82 L 10/12/20 04:29 63 28 H 96 10/12/20 04:28 36.9 C 50 L 25 H 101/56 L 94 10/12/20 03:28 37.1 C 62 30 H 104/51 L 93 10/12/20 02:28 37.1 C 63 30 H 119/51 L 96 10/12/20 01:28 37.2 C 62 32 H 109/45 L 96 10/12/20 00:28 37.3 C 60 31 H 104/62 97 10/12/20 00:00 61 10/11/20 23:28 37.4 C 64 32 H 106/49 L 97 10/11/20 22:51 60 31 H 99 10/11/20 22:28 37.4 C 70 37 H 111/43 L 98 PG Care Time/CCT Total # of Minutes Spent Total Time Spent with Patient: Total time spent is greater than 50% in coordination of care (as documented) at patient's floor/unit and/or counseling patient: Coding Level of Care Code None Diagnoses Acute respiratory failure with hypoxemia J96.01 Pneumonia due to 2019 novel coronavirus U07.1; J12.82 Bacterial pneumonia J15.9 Elevated troponin R77.8 Elevated d-dimer R79.89 Elevated liver enzymes R74.8 Hypokalemia E87.6
[2020-10-12] MEDS: HEPARIN SOD 5,000 UNIT/0.5 ML VIAL SQ SCH ×2 (12:39→21:49)
[2020-10-12] MEDS: ASPIRIN 81 MG ECTAB PO SCH (12:40)
[2020-10-12] MEDS: MAGNESIUM OXIDE 400 MG TAB PO SCH (12:40)
--- NOTE | 2020-10-12 13:05 | Critical Care Progress Note ---
Date of Service October 12, 2020 Assessment & Plan (1) Pneumonia due to 2019 novel coronavirus: (2) Acute respiratory failure with hypoxemia: (3) Elevated liver enzymes: Plan: Chest x-ray 10/10/2020 personally reviewed: Portable film, fair inspiratory effort, bilateral alveolar opacities appreciated, air bronchograms appreciated left lower lobe --Acute hypoxic respiratory failure Secondary to multilobar pneumonia COVID-19 positive 10/10/20 Procalcitonin 4.75, nasal MRSA negative CRP 31.8, LDH 960 Continue with O2 supplementation to keep oxygen saturation between 88-92% Awake proning will be beneficial for the patient --Sinus bradycardia I think it is most likely coming from remdesivir If the patient has persistent bradycardia I went up to stop --Melanotic stools Patient was on heparin drip before H&H has been stable Follow-up FOBT --Transaminitis Likely from combination of COVID-19 as well as remdesivir Continue to monitor --Dyslipidemia Atorvastatin on hold secondary to transaminitis --Prophylaxis VTE: Heparin GI: Protonix twice daily Lines: Peripheral Diet: N.p.o. Plan: In/out: +898, urine output 1476 I am going to hold remdesivir given the significant bradycardic episode that the patient has been getting Continue with dexamethasone 10 mg AST is still greater than 3 times upper limit of normal. It needs to be lower than that for her to be lower risk for Tocilizumab. Continue with Rocephin and azithromycin. Nasal MRSA negative Guaifenesin with flutter valve and incentive spirometry Awake proning Patient's is requiring a lot of oxygen support. I did discuss that she might get intubated if there is no improvement in her respiratory status. She understands agrees for. She wants to be given more time to see if she makes any headway. I have personally spent 51 minutes of critical care time in the direct management of this patient. This is a life/limb threatening event. This includes time spent evaluating patient, direct bedside care, chart review, placing orders, interpretation of diagnostic studies, discussion with consultants, patient, and family members, as well as other required patient management activities. This time is exclusive of all separately billable procedures, and teaching time and separate from and in addition to any other critical care service time. Please note the above document was generated using voice recognition software. It may contain grammatical, syntax or spelling errors. Admission and Anticipated Discharge Date Admission Date: October 10, 2020 Subjective Patient seen and examined at bedside. No acute distress. Overnight patient did have sinus pause of 2.1 seconds. Patient saturation has been maintained while she is laying prone. When she is supine she does desaturate to the low 70s. She denies any chest pain. No headache, no nausea, no vomiting. Review of Systems Review of Systems: All systems reviewed & are unremarkable except as noted in Subjective Physical Exam Physical Exam: Constitutional: Respiratory distress HEENT: EOMI, PERRLA Respiratory system: Decreased air entry bilaterally, no wheeze, no rhonchi, positive crackles bilaterally CVS: S1-S2 positive, no murmurs or gallops Abdomen: Soft, nontender, nondistended, positive bowel sounds x4 Extremities: +2 pulses bilaterally radialis/ dorsalis pedis, no cyanosis, no edema Neuro: Awake alert oriented x3 Psych: Normal mood and affect G/U: Positive Falk Skin: no rashes, warm and dry Lymphatic: no cervical or axillary lymphadenopathy Results & Data Results & Data ([facility]) Vital Signs (Past 12 Hours) Vital Signs Temp Pulse Pulse Resp BP Pulse Ox 10/12/20 11:40 70 26 H 91 10/12/20 10:45 53 L 23 97 10/12/20 10:06 70 28 H 91 10/12/20 08:02 73 28 H 91 10/12/20 08:00 36.8 C 61 39 H 109/48 L 84 L 10/12/20 07:28 36.8 C 67 26 H 116/56 L 90 10/12/20 06:28 36.8 C 64 32 H 116/50 L 92 10/12/20 05:28 36.8 C 64 35 H 104/54 L 82 L 10/12/20 04:29 63 28 H 96 10/12/20 04:28 36.9 C 50 L 25 H 101/56 L 94 10/12/20 03:28 37.1 C 62 30 H 104/51 L 93 10/12/20 02:28 37.1 C 63 30 H 119/51 L 96 10/12/20 01:28 37.2 C 62 32 H 109/45 L 96 10/12/20 04:45 10/12/20 04:45 Coding Level of Care Code Critical Care 1st 30-74 mins Diagnoses Pneumonia due to 2019 novel coronavirus U07.1; J12.82 Acute respiratory failure with hypoxemia J96.01 Elevated liver enzymes R74.8 Time Spent (min) 51
[2020-10-12] MEDS: D5W AND 1/2NSS 1,000 ML IV SCH (15:22)
[2020-10-12] MEDS: SODIUM CHLORIDE 0.9% 10ML FLUSH IV SCH (21:51)
[2020-10-13 05:38] LABS: Basophils # (auto) 0.03 K/uL (0-0.2); Basophils % (auto) 0.2 %; Hematocrit (blood only) 35.5 % (37-47); Immature Granulocytes # (auto) 0.33 K/uL (0.00-0.02); Lymphocytes # (auto) 1.34 K/uL (1.2-3.4); Mean Corpuscular Hemoglobin 28.5 pg (25-34); Mean Corpuscular Hgb Conc 33.8 g/dL (32-36); Mean Corpuscular Volume 84.3 fL (80-100); Mean Platelet Volume 11.7 fL (7.4-10.4); Monocytes % (auto) 2.4 %; Neutrophils # (auto) 14.65 K/uL (1.4-6.5); Neutrophils % (auto) 87.4 %; Nucleated RBC # (auto) 0.05 K/uL (0-0); Nucleated RBC % (auto) 0.3 %; Platelet Count 243 K/uL (130-400); RDW Coefficient of Variation 16.2 % (11.5-14.5); RDW Standard Deviation 49.5 fL (36.4-46.3); Red Blood Count 4.21 M/uL (4.2-5.4); White Blood Count 16.75 K/uL (4.8-10.8)
--- NOTE | 2020-10-13 05:45 | Electrocardiogram Report ---
Test Reason : Blood Pressure : / mmHG Vent. Rate : 117 BPM Atrial Rate : 117 BPM P-R Int : 126 ms QRS Dur : 074 ms QT Int : 278 ms P-R-T Axes : 000 -03 042 degrees QTc Int : 387 ms Poor data quality, interpretation may be adversely affected Sinus tachycardia Minimal voltage criteria for LVH, may be normal variant Borderline ECG No previous ECGs available Confirmed by Alcides Hanson ([id number]) on 10/13/2020 5:44:47 AM Referred By: REFERRED SELF Confirmed By:Alcides Hanson
[2020-10-13 06:08] LABS: Albumin Level 1.9 gm/dl (3.4-5.0); BUN Creatinine Ratio 22.2 (10-20); Calcium 7.5 mg/dl (8.5-10.1); Creatinine Clr Calc Pharmacy 13.9 ml/min; Est GFR (African American) 18.2 ml/min; Est GFR (Non-African American) 15.7 ml/min; Magnesium 2.7 mg/dl (1.8-2.4); Potassium 3.9 mmol/L (3.5-5.1)
[2020-10-13 06:11] LABS: Albumin Globulin Ratio 0.4 (0.9-2); Bilirubin,Total 0.5 mg/dl (0.2-1); Globulin 4.8 gm/dl (2.5-4.0); Phosphorus 2.1 mg/dl (2.5-4.9); Total Protein 6.7 gm/dl (6.4-8.2)
[2020-10-13] MEDS ORDERED: NORMOSOL-R 1,000 ML IV ONE (06:37)
[2020-10-13] MEDS: ZINC SULFATE 220 MG CAPSULE PO SCH (08:19)
[2020-10-13] MEDS: PANTOprazole 40 MG in SYRINGE 0 ML IV SCH (08:19)
[2020-10-13] MEDS: ESCITALOPRAM OXALATE 20 MG TAB PO SCH (08:19)
[2020-10-13] MEDS: CHOLECALCIFEROL 1,000 UNITS 25 MCG TAB PO SCH (08:19)
[2020-10-13] MEDS: guaiFENesin 600 MG TABCR PO SCH ×2 (08:20→20:54)
[2020-10-13] MEDS: AZITHROMYCIN 250 MG in DEXTROSE 5% 250 ML IV SCH (08:20)
[2020-10-13] MEDS: cefTRIAXone SODIUM 1,000 MG in DEXTROSE 5% 50 ML IV SCH (08:20)
[2020-10-13] MEDS: dexAMETHasone 10 MG in SYRINGE 0 ML IV SCH (08:21)
[2020-10-13] MEDS ORDERED: CARBOHYDRATES FOR HYPOGLYCEMIA PO PRN (08:45)
[2020-10-13] MEDS ORDERED: GLUCAGON FOR INJ 1 MG VIAL SQ PRN (08:45)
[2020-10-13] MEDS ORDERED: GLUCOSE 10 TABS/TUBE PO PRN (08:45)
[2020-10-13] MEDS ORDERED: DEXTROSE 50% 50 ML SYRINGE IV PRN (08:45)
[2020-10-13] MEDS ORDERED: GLUCOSE 40% GEL 15 GM TUBE PO PRN (08:45)
[2020-10-13] MEDS ORDERED: PHARMACY GLYCEMIC MGMT CONSULT PRN (08:50)
[2020-10-13] MEDS: INSULIN ASPART 100 UNITS/ML 3 ML PEN SC SCH ×4 (08:58→20:53)
[2020-10-13] MEDS ORDERED: INSULIN GLARGINE SOLOSTAR 100 UNITS/ML 3 ML PEN SC ONE ×2 (09:00→21:00)
[2020-10-13] MEDS ORDERED: POTASSIUM PHOS 3 MMOL/1 ML INFUSION IV STA (09:35)
[2020-10-13] MEDS ORDERED: SODIUM CHLORIDE 0.9% IV ONE (10:00)
[2020-10-13] MEDS ORDERED: TOCILIZUMAB IV ONE (10:00)
[2020-10-13] MEDS ORDERED: POTASSIUM PHOSPHATE 15 MMOL in SODIUM CHLORIDE 0.9% 250 ML IV ONE (10:00)
--- NOTE | 2020-10-13 10:12 | Critical Care Progress Note ---
Date of Service October 13, 2020 Assessment & Plan (1) Pneumonia due to 2019 novel coronavirus: (2) Acute respiratory failure with hypoxemia: (3) Elevated liver enzymes: Plan: Chest x-ray 10/10/2020 personally reviewed: Portable film, fair inspiratory effort, bilateral alveolar opacities appreciated, air bronchograms appreciated left lower lobe --Acute hypoxic respiratory failure Secondary to multilobar pneumonia COVID-19 positive 10/10/20 Procalcitonin 4.75, nasal MRSA negative CRP 31.8, LDH 960 Continue with O2 supplementation to keep oxygen saturation between 88-92% Awake proning will be beneficial for the patient -- LENNOX Likely multifactorial with remdesivir also playing a role Follow-up urine lites Monitor BUN/creatinine Avoid nephrotoxic medications Strict ins and outs --Sinus bradycardia I think it is most likely coming from remdesivir If the patient has persistent bradycardia I went up to stop --Melanotic stools Patient was on heparin drip before H&H has been stable Follow-up FOBT --Transaminitis Likely from combination of COVID-19 as well as remdesivir Trending down Continue to monitor --Dyslipidemia Atorvastatin on hold secondary to transaminitis --Prophylaxis VTE: Heparin GI: Protonix twice daily Lines: Peripheral Diet: Diabetic diet Plan: In/out: -298, urine output 751 Patient used BiPAP overnight and she did fairly well. Her respiratory rate has mellowed down and she is saturating better than yesterday. Patient is able to tolerate diet. Remdesivir has been discontinued secondary to bradycardic episodes as well as LENNOX Decrease dexamethasone 6 mg. Patient's AST and ALT are within limits for her to be given Tocilizumab. We will give her 1 dose Heparin has been increased to 5000 every 8 hours Patient was given 1 L bolus for her LENNOX We will repeat BMP at 12 PM. Follow-up urine lites If hemoglobin is stable will decrease Protonix to 40 mg once daily Continue with Rocephin and azithromycin. Nasal MRSA negative Guaifenesin with flutter valve and incentive spirometry Awake proning I have personally spent 39 minutes of critical care time in the direct manag ement of this patient. This is a life/limb threatening event. This includes time spent evaluating p atient, direct bedside care, chart review, placing orders, interpretation of diagnostic studies, discussion with consultants, patient, and family members, as well as other required patient management activities. This time is exclusive of all separately billable procedures, and teaching time and separate from and in addition to any other critical care service time. Please note the above document was generated using voice recognition software. It may contain grammatical, syntax or spelling errors. Admission and Anticipated Discharge Date Admission Date: October 10, 2020 Subjective Patient seen and examined at bedside. No acute distress, no adverse events overnight. Overnight patient tolerated BiPAP pretty well. Denies any chest pain Has been using incentive spirometry. Has been afebrile. Review of Systems Review of Systems: All systems reviewed & are unremarkable except as noted in Subjective Physical Exam Physical Exam: Constitutional: No acute distress HEENT: EOMI, PERRLA, Hard to hear Respiratory system: Decreased air entry bilaterally, no wheeze, no rhonchi, positive crackles bilaterally CVS: S1-S2 positive, no murmurs or gallops Abdomen: Soft, nontender, nondistended, positive bowel sounds x4 Extremities: +2 pulses bilaterally radialis/ dorsalis pedis, no cyanosis, no edema Neuro: Awake alert oriented x3 Psych: Normal mood and affect G/U: Positive Falk Skin: no rashes, warm and dry Lymphatic: no cervical or axillary lymphadenopathy Results & Data Results & Data ([facility]) Vital Signs (Past 12 Hours) Vital Signs Temp Pulse Pulse Resp BP Pulse Ox 10/13/20 09:55 60 93 10/13/20 09:30 60 26 H 94 10/13/20 08:00 74 10/13/20 07:25 86 98 10/13/20 07:15 73 20 92 10/13/20 05:30 35.6 C L 61 18 118/71 96 10/13/20 04:29 36.5 C 46 L 27 H 178/66 H 98 10/13/20 03:29 36.6 C 59 L 26 H 172/77 H 98 10/13/20 03:13 44 L 27 H 97 10/13/20 02:29 36.8 C 55 L 19 164/67 H 94 10/13/20 01:29 37.0 C 58 L 24 194/64 H 98 10/13/20 00:28 37.1 C 67 27 H 183/118 H 98 10/12/20 23:30 37.1 C 115 H 27 H 187/86 H 99 10/12/20 22:45 55 L 25 H 96 10/12/20 22:30 37.1 C 65 26 H 175/86 H 96 10/13/20 05:12 10/13/20 05:12 Coding Level of Care Code Critical Care 1st 30-74 mins Diagnoses Pneumonia due to 2019 novel coronavirus U07.1; J12.82 Acute respiratory failure with hypoxemia J96.01 Elevated liver enzymes R74.8 Time Spent (min) 39
--- NOTE | 2020-10-13 10:27 | XRay Report ---
XR chest 1V portable HISTORY: 75 years-old Female f/u follow-up study in a patient with multifocal airspace opacities and shortness of breath COMPARISON: 10/10/2020 TECHNIQUE: Portable AP view of the chest FINDINGS: Cardiac silhouette is enlarged. Pulmonary vascular congestion. Multifocal airspace opacities with ass ociated reticular interstitial coarsening redemonstrated, mildly progressed within the right lung. Pr obable trace pleural effusions. No pneumothorax. Degenerative changes of the shoulders and spine. IMPRESSION: 1. Multifocal bilateral airspace opacities are redemonstrated suggestive of multifocal pneumonia, mil dly progressed within the right lung. 2. Cardiomegaly with pulmonary vascular congestion. 3. Probable trace pleural effusions. ACT 112: Negative or not required by law. The above report was generated using voice recognition software. It may contain grammatical, syntax o r spelling errors. Electronically signed by: Tristan Haider M.D. 10/13/2020 10:26 AM
[2020-10-13] MEDS: MAGNESIUM OXIDE 400 MG TAB PO SCH (10:40)
[2020-10-13] MEDS: ASPIRIN 81 MG ECTAB PO SCH (10:40)
[2020-10-13 12:31] LABS: BUN Creatinine Ratio 20.7 (10-20); Calcium 7.3 mg/dl (8.5-10.1); Creatinine Clr Calc Pharmacy 12.5 ml/min; Est GFR (Non-African American) 13.8 ml/min; Potassium 4.1 mmol/L (3.5-5.1)
[2020-10-13 12:32] LABS: Phosphorus 1.8 mg/dl (2.5-4.9)
[2020-10-13] MEDS: D5W AND 1/2NSS 1,000 ML IV SCH (13:17)
[2020-10-13] MEDS: HEPARIN SOD 5,000 UNIT/0.5 ML VIAL SQ SCH ×2 (13:17→20:51)
--- NOTE | 2020-10-13 13:23 | Pharmacy Report ---
Pharmacy Glycemic Short Note 2 - Date of Service October 13, 2020 - Glycemic Short BSG Results (Last 24 hours): 10/12/20 10/13/20 10/13/20 17:04 05:12 08:40 Glucose 186 H POC Glucose 166 H 203 H 10/13/20 10/13/20 11:48 11:50 Glucose 259 H POC Glucose 235 H OUTPATIENT ANTIDIABETIC REGIMEN: * n/a * A1c pending ASSESSMENT: * Patient admitted to ICU with COVID-19, receiving 10 mg of dexamethasone (decrease to 6 mg tomorrow) daily, unknown A1c, no previous documented diagnosis of diabetes, BSGs elevated likely secondary to dexamethasone, patient also on D51/2 NS @ 40 ml/hr, LENNOX today 0.94-->2.85-->3.18 * Started weight based stress of 3 novolog, will dose lantus on scale up to weight based stress of 3, may need to utilize NPH in morning if BSGs remain elevated PLAN FOR INPATIENT GLYCEMIC CONTROL: * Hold outpatient oral diabetes medications * Basal insulin * Lantus 12 units SQ x1 this AM 12/16 units with dinner * Bolus insulin * NovoLog per scale ACHS or Q6hrs while NPO * Goal Range: Low 110 mg/dL - High 140 mg/dL * Correction Factor: 25 mg/dL/unit * Nutritional / Prandial insulin per carb ratio of 1 unit per 8 grams CHO consumed PLAN FOR DISCHARGE: * tbd
[2020-10-13] MEDS ORDERED: NORMOSOL-R 1,000 ML IV SCH (15:15)
[2020-10-13 16:47] LABS: Creatinine Urine Random 13.8 mg/dl; Potassium Random Urine 24.4 mmol/L; Uric Acid Urine Random 18.3 mg/dl
--- NOTE | 2020-10-13 17:32 | Nephrology Consultation ---
Date of Consultation October 13, 2020 Assessment & Plan (1) Acute kidney injury: Clinically consistent with ATN. Urine studies pending. Renal US pending. No emergent indication for dialysis. IV normosol to encourage slightly positive fluid balance. Document I/O's. Repeat metabolic profile tomorrow AM. (2) Pneumonia due to 2019 novel coronavirus: Remdesivir appropriately held. Goals of care reviewed. Medications appropriate for kidney dysfunction. History of Present Illness Reason for Consultation: LENNOX Requesting Physician: Manjit Peñaloza MD Attending Physician: Manjit Peñaloza MD History of Present Illness The patient was not physically seen today due to COVID diagnosis. I discussed the case in detail with Dr. Rod and the ICU nurse. Mrs. Zenobia Suero is a 75-year-old female with a history of dyslipidemia and anxiety who presented to [facility] ER on October 10 with fever, cough and generalized malaise. Zenobia is unvaccinated for COVID. Symptoms started 3 days prior to presentation. Zenobia was admitted with severe hypoxic respiratory failure due to COVID pneumonia. Treatment with Remdesivir, dexamethasone, azithromycin, and Rocephin was started on admission. Hospitalization complicated by sinus bradycardia and acute renal failure. Creatinine was 0.9 mg/dL yesterday and increased to 2.8 and subsequently 3.2 mg/dL today. Zenobia is oliguric. 120 ml of urine output per Falk today. Remdesivir has been stopped. Tocilizumab will be started. Zenobia is oxygenating at 93% on high flow nasal canula and BIPAP intermittently throughout the day. I/O + 3 L since admission. 1 L bolus provided without noted improvement in UOP. Zenobia is agreeable to hemodialysis if needed. Allergies Allergy/AdvReac Type Severity Reaction Status Date / Time Sulfa (Sulfonamide Allergy Mild itchy and Verified 10/10/20 20:08 Antibiotics) feeling drained Home Medications Medication Instructions Recorded Confirmed Type Glucosamine Chondroitin PLUS 200 mcg PO QDL 06/16/18 10/10/20 History acetaminophen 325 mg tablet 325 - 650 mg PO Q6H PRN 06/16/18 10/10/20 History (Tylenol) alendronate 70 mg tablet (Fosamax) 1 tab PO WK 06/16/18 10/10/20 History ascorbic acid (vitamin C) 500 mg 500 mg PO QDL 06/16/18 10/10/20 History tablet (Vitamin C) aspirin 81 mg tablet,delayed 81 mg PO QDL 06/16/18 10/10/20 History release atorvastatin 10 mg tablet 10 mg PO HS 06/16/18 10/10/20 History biotin 1 mg tablet 1 mg PO QAM 06/16/18 10/10/20 History calcium carbonate 600 mg (1,500 2 tab PO BID 06/16/18 10/10/20 History mg)-vitamin D3 400 unit tablet (Calcium 600 + D(3)) ibuprofen 200 mg tablet 400 mg PO QAM 06/16/18 10/10/20 History lutein 20 mg tablet 20 mg PO QDL 06/16/18 10/10/20 History magnesium oxide 250 mg PO QDL 06/16/18 10/10/20 History omega 3 350 mg-dha 235 mg-epa 90 3 cap PO QAM 06/16/18 10/10/20 History mg-fish oil 597 mg capsule,delay rel ([place]-3) pediatric multivit no.43 with iron 1 tab PO QAM 06/16/18 10/10/20 History fumarate 18 mg iron chewable tablet (Flintstones Complete (iron)) vitamin E 400 unit capsule 400 unit PO QDL 06/16/18 10/10/20 History escitalopram oxalate 20 mg tablet 20 mg PO DAILY 10/10/20 10/10/20 History Patient History Medical History Anxiety Hyperlipidemia Surgical History (Updated 06/16/18 @ 11:14 by Aaliyah Lockhart RN) History of appendectomy with right salpingo-oophorectomy History of colonoscopy History of esophagogastroduodenoscopy (EGD) History of right salpingo-oophorectomy History of umbilical hernia repair had left tubal ligation at same time Status post tubal ligation left with hernia repair Family History (Updated 06/16/18 @ 11:13 by Aaliyah Lockhart RN) Other No family history of adverse response to anesthesia Social History Smoking Status: Former smoker Second Hand Exposure: No; Hx Alcohol Use: Yes Alcohol type: wine Hx Substance Use: No Preferred Language: Persian Communication Ability: Effective Parts Identification Technician Required: No Beliefs That Will Affect Care: None marital status: Current Living Situation: Spouse Feels Safe at Home: Yes Assistive Devices: BiPap Review of Systems Review of Systems: All systems reviewed & are unremarkable except as noted in HPI & below Physical Exam Physical Exam: Deferred due to COVID pandemic Results & Data ([facility]) Vital Signs (Past 12 Hours) Vital Signs Temp Pulse Pulse Resp BP Pulse Ox 10/13/20 15:28 36.6 C 61 29 H 157/69 H 93 10/13/20 15:14 65 30 H 95 10/13/20 14:28 36.6 C 69 32 H 154/74 H 94 10/13/20 13:28 36.6 C 72 22 148/76 H 90 10/13/20 13:05 69 30 H 95 10/13/20 12:28 36.5 C 79 39 H 163/73 H 80 L 10/13/20 11:28 36.7 C 71 33 H 148/75 H 89 L 10/13/20 11:05 70 93 10/13/20 10:49 67 24 93 10/13/20 10:28 36.7 C 66 22 157/74 H 95 10/13/20 09:55 60 93 10/13/20 09:30 60 26 H 94 10/13/20 09:28 36.8 C 50 L 23 151/79 H 92 10/13/20 08:28 36.8 C 72 29 H 125/67 95 10/13/20 08:00 74 10/13/20 07:29 36.5 C 67 22 142/75 H 92 10/13/20 07:25 86 98 10/13/20 07:15 73 20 92 Laboratory Results Laboratory Results - last 24 hr 10/13/20 10/13/20 10/13/20 05:12 05:12 05:12 WBC 16.75 H RBC 4.21 Hgb 12.0 Hct 35.5 L MCV 84.3 MCH 28.5 MCHC 33.8 RDW Std Deviation 49.5 H RDW Coeff of Roxanna 16.2 H Plt Count 243 MPV 11.7 H Immature Gran % (Auto) 2.0 Neut % (Auto) 87.4 Lymph % (Auto) 8.0 [place] % (Auto) 2.4 Eos % (Auto) 0.0 Baso % (Auto) 0.2 Neut # (Auto) 14.65 H Lymph # (Auto) 1.34 [place] # (Auto) 0.40 Eos # (Auto) 0.00 Baso # (Auto) 0.03 Immature Gran # (Auto) 0.33 H Absolute Nucleated RBC 0.05 H Nucleated RBC % (auto) 0.3 Sodium 145 Potassium 3.9 Chloride 116 H Carbon Dioxide 22 Anion Gap 7.0 BUN 63 H D Creatinine 2.85 H D Est Cr Clr Drug Dosing 13.9 Est GFR ( Amer) 18.2 Est GFR (Non-Af Amer) 15.7 BUN/Creatinine Ratio 22.2 H Glucose 186 H POC Glucose Calcium 7.5 L Phosphorus 2.1 L Magnesium 2.7 H Total Bilirubin 0.5 AST 118 H ALT 147 H Alkaline Phosphatase 163 H C-Reactive Protein 15.80 H Total Protein 6.7 Albumin 1.9 L Globulin 4.8 H Albumin/Globulin Ratio 0.4 L Urine Osmolality Ur Random Creatinine Ur Random Sodium Ur Random Potassium Ur Random Chloride Ur Random Uric Acid 10/13/20 10/13/20 10/13/20 08:40 11:48 11:50 WBC RBC Hgb Hct MCV MCH MCHC RDW Std Deviation RDW Coeff of Roxanna Plt Count MPV Immature Gran % (Auto) Neut % (Auto) Lymph % (Auto) [place] % (Auto) Eos % (Auto) Baso % (Auto) Neut # (Auto) Lymph # (Auto) [place] # (Auto) Eos # (Auto) Baso # (Auto) Immature Gran # (Auto) Absolute Nucleated RBC Nucleated RBC % (auto) Sodium 141 Potassium 4.1 Chloride 112 H Carbon Dioxide 19 L Anion Gap 10.0 BUN 66 H Creatinine 3.18 H D Est Cr Clr Drug Dosing 12.5 Est GFR ( Amer) 16.0 Est GFR (Non-Af Amer) 13.8 BUN/Creatinine Ratio 20.7 H Glucose 259 H POC Glucose 203 H 235 H Calcium 7.3 L Phosphorus 1.8 L Magnesium Total Bilirubin AST ALT Alkaline Phosphatase C-Reactive Protein Total Protein Albumin Globulin Albumin/Globulin Ratio Urine Osmolality Ur Random Creatinine Ur Random Sodium Ur Random Potassium Ur Random Chloride Ur Random Uric Acid 10/13/20 10/13/20 10/13/20 15:45 15:48 15:48 WBC RBC Hgb Hct MCV MCH MCHC RDW Std Deviation RDW Coeff of Roxanna Plt Count MPV Immature Gran % (Auto) Neut % (Auto) Lymph % (Auto) [place] % (Auto) Eos % (Auto) Baso % (Auto) Neut # (Auto) Lymph # (Auto) [place] # (Auto) Eos # (Auto) Baso # (Auto) Immature Gran # (Auto) Absolute Nucleated RBC Nucleated RBC % (auto) Sodium Potassium Chloride Carbon Dioxide Anion Gap BUN Creatinine Est Cr Clr Drug Dosing Est GFR ( Amer) Est GFR (Non-Af Amer) BUN/Creatinine Ratio Glucose POC Glucose 172 H Calcium Phosphorus Magnesium Total Bilirubin AST ALT Alkaline Phosphatase C-Reactive Protein Total Protein Albumin Globulin Albumin/Globulin Ratio Urine Osmolality 370 L Ur Random Creatinine 13.8 Ur Random Sodium 122 Ur Random Potassium 24.4 Ur Random Chloride 151 Ur Random Uric Acid 18.3 PG Care Time/CCT Total # of Minutes Spent Total Time Spent with Patient: Total time spent is greater than 50% in coordination of care (as documented) at patient's floor/unit and/or counseling patient: 25 minutes Coding Level of Care Code 99775 Inpt Consult Level 4 Diagnoses Acute kidney injury N17.9 Pneumonia due to 2019 novel coronavirus U07.1; J12.82 Time Spent (min) 25
--- NOTE | 2020-10-13 18:05 | Hospitalist Progress Note ---
Date of Service October 13, 2020 Assessment & Plan (1) Acute respiratory failure with hypoxemia: Plan: Mrs. Suero is a 75 yo woman who presented with fever, cough and fatigue of 3 days duration, admitted for COVID 19 and bacterial pneumonia. - septic, SIRS criteria met on admission (WBC, RR, HR). Lactate not elevated. - O2 sat < 94, classifying as severe COVID 19 - Aim O2 sats > 94%, currently mildly improved switching between BiPAP and HFNC (2) Acute kidney injury: Plan: Suspected ATN due to COVID-19, ?remdesivir. Appreciate ongoing nephrology management of this. Recommend CK level to rule out rhabdomyolysis (3) Pneumonia due to 2019 novel coronavirus: Plan: Remdesirvir holding due to LENNOX, elevated LFTs and bradycardia. Dexamethasone 10mg IV daily for 10 days or until discharge Tocilizumab deferred due to elevated LFTs (4) Bacterial pneumonia: Plan: Cefepime given in ER. Continue ceftriaxone and azithromycin. Procalcitonin downtrending (5) Elevated troponin: Plan: - consistent with type II CO, supply-demand mismatch (6) Elevated d-dimer: Plan: - 4890 on admission, given her severity of illness this appears appropriate without a pulmonary embolism - US doppler negative for DVT - unable to perform CT for PE due to LENNOX (7) Elevated liver enzymes: Plan: - AST and ALT elevated - trend CMP - avoid Acetaminophen - likely related to acute COVID 19 infection (8) Hypokalemia: Plan: Resolved. (9) Metabolic acidosis: Plan: Secondary to LENNOX. Management per nephrology. Plan: Dvt ppx: Heparin SQ, consider increased dose as discussed with ICU since Hemoglobin stable Diet: heart healthy Dispo: ICU, COVID precautions Code: Full Admission and Anticipated Discharge Date Admission Date: October 10, 2020 Subjective Reviewed patient chart. Discussed care with ICU team and Dr Alston. Patient seen from outside room to limit SARS-COV-2 exposure as medical care performed by ICU. Results & Data Results & Data ([facility]) Vital Signs (Past 12 Hours) Vital Signs Temp Pulse Pulse Resp BP Pulse Ox 10/13/20 15:28 36.6 C 61 29 H 157/69 H 93 10/13/20 15:14 65 30 H 95 10/13/20 14:28 36.6 C 69 32 H 154/74 H 94 10/13/20 13:28 36.6 C 72 22 148/76 H 90 10/13/20 13:05 69 30 H 95 10/13/20 12:28 36.5 C 79 39 H 163/73 H 80 L 10/13/20 11:28 36.7 C 71 33 H 148/75 H 89 L 10/13/20 11:05 70 93 10/13/20 10:49 67 24 93 10/13/20 10:28 36.7 C 66 22 157/74 H 95 10/13/20 09:55 60 93 10/13/20 09:30 60 26 H 94 10/13/20 09:28 36.8 C 50 L 23 151/79 H 92 10/13/20 08:28 36.8 C 72 29 H 125/67 95 10/13/20 08:00 74 10/13/20 07:29 36.5 C 67 22 142/75 H 92 10/13/20 07:25 86 98 10/13/20 07:15 73 20 92 PG Care Time/CCT Total # of Minutes Spent Total Time Spent with Patient: Total time spent is greater than 50% in coordination of care (as documented) at patient's floor/unit and/or counseling patient: Coding Level of Care Code None Diagnoses Acute respiratory failure with hypoxemia J96.01 Pneumonia due to 2019 novel coronavirus U07.1; J12.82 Bacterial pneumonia J15.9 Elevated troponin R77.8 Elevated d-dimer R79.89 Elevated liver enzymes R74.8 Hypokalemia E87.6 Acute kidney injury N17.9 Metabolic acidosis E87.2
--- NOTE | 2020-10-13 20:33 | Ultrasound Report ---
EXAMINATION: RENAL ULTRASOUND CLINICAL HISTORY: r/o obstruction COMPARISON STUDY: None FINDINGS: The right kidney measures 10.3 cm.. The left kidney measures 9.2 cm.. There is no evidence of hydron ephrosis. There is 1.0 x 1.1 x 1.0 cm hypoechoic lesion within lower pole of the right kidney most likely repre senting cyst. Urinary bladder is decompressed by Falk catheter. Livestock Showman was not able to evaluate renal vascular flow. IMPRESSION : No evidence of hydronephrosis or nephrolithiasis on current exam. Hypoechoic lesion within right kidney, most likely representing small cysts. ACT 112: Negative or not required by law. The above report was generated using voice recognition software. It may contain grammatical, syntax o r spelling errors. Electronically signed by: Ainsley Pulido DO 10/13/2020 8:31 PM
[2020-10-14] MEDS: INSULIN ASPART 100 UNITS/ML 3 ML PEN SC SCH ×6 (00:06→21:51)
[2020-10-14 04:52] LABS: Basophils # (auto) 0.02 K/uL (0-0.2); Basophils % (auto) 0.1 %; Hematocrit (blood only) 31.9 % (37-47); Hemoglobin 10.9 g/dL (12.0-16.0); Immature Granulocytes # (auto) 0.37 K/uL (0.00-0.02); Immature Granulocytes % (auto) 2.4 %; Lymphocytes # (auto) 0.97 K/uL (1.2-3.4); Lymphocytes % (auto) 6.3 %; Mean Corpuscular Hemoglobin 28.2 pg (25-34); Mean Corpuscular Hgb Conc 34.2 g/dL (32-36); Mean Corpuscular Volume 82.6 fL (80-100); Mean Platelet Volume 11.2 fL (7.4-10.4); Monocytes # (auto) 0.36 K/uL (0.11-0.59); Monocytes % (auto) 2.3 %; Neutrophils # (auto) 13.73 K/uL (1.4-6.5); Neutrophils % (auto) 88.9 %; Nucleated RBC # (auto) 0.04 K/uL (0-0); Nucleated RBC % (auto) 0.3 %; Platelet Count 192 K/uL (130-400); RDW Coefficient of Variation 16.4 % (11.5-14.5); RDW Standard Deviation 49.4 fL (36.4-46.3); Red Blood Count 3.86 M/uL (4.2-5.4); White Blood Count 15.45 K/uL (4.8-10.8)
[2020-10-14 05:18] LABS: Albumin Level 1.8 gm/dl (3.4-5.0); BUN Creatinine Ratio 19.3 (10-20); Calcium 6.9 mg/dl (8.5-10.1); Creatinine Clr Calc Pharmacy 9.5 ml/min; Est GFR (African American) 11.5 ml/min; Magnesium 2.9 mg/dl (1.8-2.4); Potassium 4.3 mmol/L (3.5-5.1)
[2020-10-14 05:34] LABS: Albumin Globulin Ratio 0.5 (0.9-2); Bilirubin,Total 0.5 mg/dl (0.2-1); Total Protein 5.8 gm/dl (6.4-8.2)
[2020-10-14] MEDS: HEPARIN SOD 5,000 UNIT/0.5 ML VIAL SQ SCH ×3 (06:39→21:50)
[2020-10-14] MEDS: cefTRIAXone SODIUM 1,000 MG in DEXTROSE 5% 50 ML IV SCH (06:39)
--- NOTE | 2020-10-14 07:17 | XRay Report ---
XR chest 1V portable HISTORY: 75 years-old Female f/u acute shortness of breath COMPARISON: 10/13/2020 TECHNIQUE: Portable AP view of the chest FINDINGS: Cardiac silhouette is enlarged. Pulmonary vascular congestion with mixed interstitial and alveolar op acities redemonstrated, not significantly changed from comparison. No pneumothorax or large pleural e ffusion. Degenerative changes of the shoulders and spine. IMPRESSION: 1. Cardiomegaly with unchanged bilateral mixed interstitial and alveolar opacities. 2. No pneumothorax. ACT 112: Negative or not required by law. The above report was generated using voice recognition software. It may contain grammatical, syntax o r spelling errors. Electronically signed by: Tristan Haider M.D. 10/14/2020 7:16 AM
[2020-10-14] MEDS ORDERED: SODIUM BICARB 8.4% INJ 50 MEQ/50 ML SYR IV STA (07:41)
[2020-10-14 07:47] LABS: Estimated Average Glucose 140 mg/dl; Hemoglobin A1C 6.5 % (4.5-5.6)
[2020-10-14] MEDS: AZITHROMYCIN 250 MG in DEXTROSE 5% 250 ML IV SCH (08:15)
[2020-10-14] MEDS: hydrALAZINE HCL 20 MG/ML VIAL IV PRN ×3 (08:15→23:56)
[2020-10-14] MEDS: guaiFENesin 600 MG TABCR PO SCH ×2 (08:16→21:50)
[2020-10-14] MEDS: ZINC SULFATE 220 MG CAPSULE PO SCH (08:16)
[2020-10-14] MEDS: PANTOprazole 40 MG in SYRINGE 0 ML IV SCH (08:16)
[2020-10-14] MEDS: CHOLECALCIFEROL 1,000 UNITS 25 MCG TAB PO SCH (08:16)
[2020-10-14] MEDS: dexAMETHasone 6 MG in SYRINGE 0 ML IV SCH (08:16)
[2020-10-14] MEDS: ESCITALOPRAM OXALATE 20 MG TAB PO SCH (08:16)
[2020-10-14] MEDS ORDERED: amLODIPine BESYLATE 5 MG TAB PO ONE (08:17)
--- NOTE | 2020-10-14 09:08 | Nephrology Progress Note ---
Date of Service October 14, 2020 Assessment & Plan (1) Acute kidney injury: Plan: Baseline creatinine <1 mg/dL. LENNOX clinically consistent with ATN. Urine microscopy negative. US without obstruction. No evidence of renal recovery. Remains relatively oliguric despite fluid challenge. Electrolytes acceptable. Potential future indications for hemodialysis and the dialysis procedure were discussed in detail with Zenobia this AM. She consented to dialysis as needed. IV HCO3 replacement has been provided. Continue to document strict I/O's. Monitor metabolic profile Q 12 hours. IV fluids held. Loop diuretic challenge as needed with a goal to maintain relatively even fluid balance. (2) Pneumonia due to 2019 novel coronavirus: Plan: Remdesivir appropriately held. Goals of care reviewed. Medications appropriate for kidney dysfunction. (3) Hypertension: Plan: Amlodipine provided this AM. Admission and Anticipated Discharge Date Admission Date: October 10, 2020 Subjective No acute events overnight. Zenobia was seen and evaluated in the ICU this AM. I discussed the plan of care with Dr. Rod and Dr. Peñaloza. UOP ~210 ml in past 24 hours. Review of Systems Review of Systems: All systems reviewed & are unremarkable except as noted in HPI & below Constitutional: + weakness; no fever Respiratory: + chest congestion and + dyspnea Cardiovascular: no chest pain and no edema Physical Exam Constitutional: + acute distress and + ill appearing Eyes: no scleral abnormality and no corneal abnormality ENMT: Mouth: no oral mucosal abnormality and oral mucous membranes not dry Neck: normal visual inspection and trachea midline Respiratory: + respiratory distress Auscultation: + rhonchi Cardiovascular: Rate/Rhythm: regular rate Heart Sounds: normal S1 and normal S2 Extremities: no edema Musculoskeletal: Extremities: no cyanosis and no clubbing Skin: normal turgor; no lesions Neurologic: Motor/Sensory: no tremor and no asterixis Psychiatric: Orientation: alert and oriented x 3 Genitourinary: Falk with small amount of clear urine Results & Data ([facility]) Vital Signs (Past 12 Hours) Vital Signs Temp Pulse Pulse Resp BP Pulse Ox 10/14/20 07:38 65 24 95 10/14/20 06:28 36.6 C 77 26 H 185/81 H 91 10/14/20 05:29 36.6 C 59 L 21 193/77 H 93 10/14/20 04:28 36.6 C 56 L 23 176/87 H 92 10/14/20 03:35 70 26 H 92 10/14/20 03:29 36.6 C 104 H 25 H 183/81 H 93 10/14/20 02:28 36.6 C 68 29 H 178/93 H 92 10/14/20 01:29 36.6 C 67 30 H 165/80 H 97 10/14/20 00:58 36.7 C 66 25 H 178/79 H 97 10/14/20 00:28 36.7 C 61 28 H 172/84 H 95 10/14/20 00:00 62 10/13/20 23:59 36.7 C 62 22 172/63 H 96 10/13/20 23:40 58 L 22 95 10/13/20 21:29 36.7 C 60 30 H 128/67 95 Laboratory Results Laboratory Results - last 24 hr 10/13/20 10/13/20 10/13/20 05:12 11:48 11:50 WBC RBC Hgb Hct MCV MCH MCHC RDW Std Deviation RDW Coeff of Roxanna Plt Count MPV Immature Gran % (Auto) Neut % (Auto) Lymph % (Auto) [place] % (Auto) Eos % (Auto) Baso % (Auto) Neut # (Auto) Lymph # (Auto) [place] # (Auto) Eos # (Auto) Baso # (Auto) Immature Gran # (Auto) Absolute Nucleated RBC Nucleated RBC % (auto) Sodium 141 Potassium 4.1 Chloride 112 H Carbon Dioxide 19 L Anion Gap 10.0 BUN 66 H Creatinine 3.18 H D Est Cr Clr Drug Dosing 12.5 Est GFR ( Amer) 16.0 Est GFR (Non-Af Amer) 13.8 BUN/Creatinine Ratio 20.7 H Glucose 259 H POC Glucose 235 H Estimat Average Glucose Hemoglobin A1c Calcium 7.3 L Phosphorus 1.8 L Magnesium Total Bilirubin AST ALT Alkaline Phosphatase Total Creatine Kinase C-Reactive Protein 15.80 H Total Protein Albumin Globulin Albumin/Globulin Ratio Urine Osmolality Ur Random Creatinine Ur Random Sodium Ur Random Potassium Ur Random Chloride Ur Random Uric Acid Stool Occult Bld Scrn 10/13/20 10/13/20 10/13/20 15:45 15:48 15:48 WBC RBC Hgb Hct MCV MCH MCHC RDW Std Deviation RDW Coeff of Roxanna Plt Count MPV Immature Gran % (Auto) Neut % (Auto) Lymph % (Auto) [place] % (Auto) Eos % (Auto) Baso % (Auto) Neut # (Auto) Lymph # (Auto) [place] # (Auto) Eos # (Auto) Baso # (Auto) Immature Gran # (Auto) Absolute Nucleated RBC Nucleated RBC % (auto) Sodium Potassium Chloride Carbon Dioxide Anion Gap BUN Creatinine Est Cr Clr Drug Dosing Est GFR ( Amer) Est GFR (Non-Af Amer) BUN/Creatinine Ratio Glucose POC Glucose 172 H Estimat Average Glucose Hemoglobin A1c Calcium Phosphorus Magnesium Total Bilirubin AST ALT Alkaline Phosphatase Total Creatine Kinase C-Reactive Protein Total Protein Albumin Globulin Albumin/Globulin Ratio Urine Osmolality 370 L Ur Random Creatinine 13.8 Ur Random Sodium 122 Ur Random Potassium 24.4 Ur Random Chloride 151 Ur Random Uric Acid 18.3 Stool Occult Bld Scrn 10/13/20 10/13/20 10/13/20 19:03 20:21 20:35 WBC RBC Hgb Hct MCV MCH MCHC RDW Std Deviation RDW Coeff of Roxanna Plt Count MPV Immature Gran % (Auto) Neut % (Auto) Lymph % (Auto) [place] % (Auto) Eos % (Auto) Baso % (Auto) Neut # (Auto) Lymph # (Auto) [place] # (Auto) Eos # (Auto) Baso # (Auto) Immature Gran # (Auto) Absolute Nucleated RBC Nucleated RBC % (auto) Sodium Potassium Chloride Carbon Dioxide Anion Gap BUN Creatinine Est Cr Clr Drug Dosing Est GFR ( Amer) Est GFR (Non-Af Amer) BUN/Creatinine Ratio Glucose POC Glucose 138 H Estimat Average Glucose Hemoglobin A1c Calcium Phosphorus Magnesium Total Bilirubin AST ALT Alkaline Phosphatase Total Creatine Kinase 422 H C-Reactive Protein Total Protein Albumin Globulin Albumin/Globulin Ratio Urine Osmolality Ur Random Creatinine Ur Random Sodium Ur Random Potassium Ur Random Chloride Ur Random Uric Acid Stool Occult Bld Scrn Positive A 10/14/20 10/14/20 10/14/20 00:01 04:08 04:40 WBC RBC Hgb Hct MCV MCH MCHC RDW Std Deviation RDW Coeff of Roxanna Plt Count MPV Immature Gran % (Auto) Neut % (Auto) Lymph % (Auto) [place] % (Auto) Eos % (Auto) Baso % (Auto) Neut # (Auto) Lymph # (Auto) [place] # (Auto) Eos # (Auto) Baso # (Auto) Immature Gran # (Auto) Absolute Nucleated RBC Nucleated RBC % (auto) Sodium Potassium Chloride Carbon Dioxide Anion Gap BUN Creatinine Est Cr Clr Drug Dosing Est GFR ( Amer) Est GFR (Non-Af Amer) BUN/Creatinine Ratio Glucose POC Glucose 147 H 114 H Estimat Average Glucose 140 Hemoglobin A1c 6.5 H Calcium Phosphorus Magnesium Total Bilirubin AST ALT Alkaline Phosphatase Total Creatine Kinase C-Reactive Protein Total Protein Albumin Globulin Albumin/Globulin Ratio Urine Osmolality Ur Random Creatinine Ur Random Sodium Ur Random Potassium Ur Random Chloride Ur Random Uric Acid Stool Occult Bld Scrn 10/14/20 10/14/20 10/14/20 04:40 04:40 08:22 WBC 15.45 H RBC 3.86 L Hgb 10.9 L Hct 31.9 L MCV 82.6 MCH 28.2 MCHC 34.2 RDW Std Deviation 49.4 H RDW Coeff of Roxanna 16.4 H Plt Count 192 MPV 11.2 H Immature Gran % (Auto) 2.4 Neut % (Auto) 88.9 Lymph % (Auto) 6.3 [place] % (Auto) 2.3 Eos % (Auto) 0.0 Baso % (Auto) 0.1 Neut # (Auto) 13.73 H Lymph # (Auto) 0.97 L [place] # (Auto) 0.36 Eos # (Auto) 0.00 Baso # (Auto) 0.02 Immature Gran # (Auto) 0.37 H Absolute Nucleated RBC 0.04 H Nucleated RBC % (auto) 0.3 Sodium 142 Potassium 4.3 Chloride 114 H Carbon Dioxide 18 L Anion Gap 10.0 BUN 80 H Creatinine 4.16 H D Est Cr Clr Drug Dosing 9.5 Est GFR ( Amer) 11.5 Est GFR (Non-Af Amer) 10.0 BUN/Creatinine Ratio 19.3 Glucose 111 H POC Glucose 102 H Estimat Average Glucose Hemoglobin A1c Calcium 6.9 L Phosphorus 3.0 D Magnesium 2.9 H Total Bilirubin 0.5 AST 108 H ALT 124 H Alkaline Phosphatase 156 H Total Creatine Kinase C-Reactive Protein Total Protein 5.8 L Albumin 1.8 L Globulin 4.0 Albumin/Globulin Ratio 0.5 L Urine Osmolality Ur Random Creatinine Ur Random Sodium Ur Random Potassium Ur Random Chloride Ur Random Uric Acid Stool Occult Bld Scrn Diagnostic Findings CXR reviewed this morning. Persistent multifocal pneumonia. PG Care Time/CCT Total # of Minutes Spent Total Time Spent with Patient: Total time spent is greater than 50% in coordination of care (as documented) at patient's floor/unit and/or counseling patient: Coding Level of Care Code 88055 Subseq Hosp Care Lvl 3 Diagnoses Acute kidney injury N17.9 Pneumonia due to 2019 novel coronavirus U07.1; J12.82 Hypertension I10
[2020-10-14] MEDS: INSULIN GLARGINE SOLOSTAR 100 UNITS/ML 3 ML PEN SC SCH (10:11)
[2020-10-14] MEDS: ASPIRIN 81 MG ECTAB PO SCH (11:48)
--- NOTE | 2020-10-14 12:48 | Critical Care Progress Note ---
Date of Service October 14, 2020 Assessment & Plan (1) Pneumonia due to 2019 novel coronavirus: (2) Acute respiratory failure with hypoxemia: (3) Elevated liver enzymes: Plan: Chest x-ray 10/10/2020 personally reviewed: Portable film, fair inspiratory effort, bilateral alveolar opacities appreciated, air bronchograms appreciated left lower lobe --Acute hypoxic respiratory failure Secondary to multilobar pneumonia COVID-19 positive 10/10/20 Procalcitonin 4.75, nasal MRSA negative CRP 31.8, LDH 960 S/p Tocilizumab 10/13/2020 Continue with O2 supplementation to keep oxygen saturation between 88-92% Awake proning will be beneficial for the patient -- LENNOX Likely multifactorial with remdesivir also playing a role FeNa: 19%, inclined towards ATN/obstructive Monitor BUN/creatinine Avoid nephrotoxic medications Strict ins and outs --Sinus bradycardia I think it is most likely coming from remdesivir --> has been discontinued If the patient has persistent bradycardia I went up to stop --Melanotic stools Patient was on heparin drip before H&H has been stable FOBT positive. H&H has been stable --Transaminitis Likely from combination of COVID-19 as well as remdesivir Trending down Continue to monitor --Dyslipidemia Atorvastatin on hold secondary to transaminitis --Prophylaxis VTE: Heparin GI: Protonix twice daily Lines: Peripheral Diet: Diabetic diet Plan: In/out: +3.7 L, urine output 216 Patient's creatinine is getting worse She is oliguric. I will give her 80 mg of Lasix later today. No current indication for dialysis but it seems if there is no improvement in her renal function that is where her weight will be headed. I did discuss this with the patient and she is understanding and agreeable to dialysis if need be. Continue with Rocephin and azithromycin. Nasal MRSA negative Guaifenesin with flutter valve and incentive spirometry Awake proning I have personally spent 38 minutes of critical care time in the direct management of this patient. This is a life/limb threatening event. This includes time spent evaluating patient, direct bedside care, chart review, placing orders, interpretation of diagnostic studies, discussion with consultants, patient, and family members, as well as other required patient management activities. This time is exclusive of all separately billable procedures, and teaching time and separate from and in addition to any other critical care service time. Please note the above document was generated using voice recognition software. It may contain grammatical, syntax or spelling errors. Admission and Anticipated Discharge Date Admission Date: October 10, 2020 Subjective Patient seen and examined at bedside. No acute distress. Patient was on high flow 60 L, 100% at time of examination saturating 93-94% Patient did desaturate when she was having her breakfast and had a coughing fit. Patient states she is doing okay when it comes to her breathing. She is breathing in the mid to high 20s. Denies any nausea or vomiting. Her urine output has significantly decreased. Creatinine is also getting 1 Review of Systems Review of Systems: All systems reviewed & are unremarkable except as noted in Subjective Physical Exam Physical Exam: Constitutional: No acute distress HEENT: EOMI, PERRLA, Hard to hear Respiratory system: Decreased air entry bilaterally, no wheeze, no rhonchi, positive crackles bilaterally CVS: S1-S2 positive, no murmurs or gallops Abdomen: Soft, nontender, nondistended, positive bowel sounds x4 Extremities: +2 pulses bilaterally radialis/ dorsalis pedis, no cyanosis, no edema Neuro: Awake alert oriented x3 Psych: Normal mood and affect G/U: Positive Falk Skin: no rashes, warm and dry Lymphatic: no cervical or axillary lymphadenopathy Results & Data Results & Data ([facility]) Vital Signs (Past 12 Hours) Vital Signs Temp Pulse Pulse Pulse Resp BP Pulse Ox 10/14/20 11:20 89 29 H 93 10/14/20 10:28 36.5 C 82 24 155/98 H 99 10/14/20 09:28 36.4 C L 90 37 H 139/65 91 10/14/20 09:11 76 28 L 93 10/14/20 08:29 36.6 C 91 H 23 197/92 H 97 10/14/20 08:00 77 10/14/20 07:38 65 24 95 10/14/20 07:29 36.6 C 70 26 H 165/92 H 100 10/14/20 06:28 36.6 C 77 26 H 185/81 H 91 10/14/20 05:29 36.6 C 59 L 21 193/77 H 93 10/14/20 04:28 36.6 C 56 L 23 176/87 H 92 10/14/20 03:35 70 26 H 92 10/14/20 03:29 36.6 C 104 H 25 H 183/81 H 93 10/14/20 02:28 36.6 C 68 29 H 178/93 H 92 10/14/20 01:29 36.6 C 67 30 H 165/80 H 97 10/14/20 00:58 36.7 C 66 25 H 178/79 H 97 10/14/20 00:28 36.7 C 61 28 H 172/84 H 95 10/14/20 04:40 10/14/20 04:40 Coding Level of Care Code Critical Care 1st 30-74 mins Diagnoses Pneumonia due to 2019 novel coronavirus U07.1; J12.82 Acute respiratory failure with hypoxemia J96.01 Elevated liver enzymes R74.8 Time Spent (min) 38
--- NOTE | 2020-10-14 12:52 | Hospitalist Progress Note ---
Date of Service October 14, 2020 Assessment & Plan (1) Acute respiratory failure with hypoxemia: Plan: Mrs. Suero is a 75 yo woman who presented with fever, cough and fatigue of 3 days duration, admitted for COVID 19 and bacterial pneumonia. - septic, SIRS criteria met on admission (WBC, RR, HR). Lactate not elevated. - O2 sat < 94, classifying as severe COVID 19 - Aim O2 sats > 94%, fluctuating but concerning increase in FiO2 requirement - unchanged bilateral mixed interstitial and alveolar opacities. (2) Acute kidney injury: Plan: Suspected ATN due to COVID-19, ?remdesivir. Appreciate ongoing nephrology management of this ?dialysis tomorrow if not improving with Lasix given today. CK WNL (3) Pneumonia due to 2019 novel coronavirus: Plan: Remdesirvir holding due to LENNOX, elevated LFTs and bradycardia. Dexamethasone 10mg IV daily for 10 days or until discharge Tocilizumab deferred due to elevated LFTs (4) Bacterial pneumonia: Plan: Cefepime given in ER. Continue ceftriaxone and azithromycin. Procalcitonin downtrending (5) Elevated troponin: Plan: - consistent with type II SD, supply-demand mismatch (6) Elevated d-dimer: Plan: - 4890 on admission, given her severity of illness this appears appropriate without a pulmonary embolism - US doppler negative for DVT - unable to perform CT for PE due to LENNOX (7) Elevated liver enzymes: Plan: - AST and ALT elevated - trend CMP - avoid Acetaminophen - likely related to acute COVID 19 infection (8) Hypokalemia: Plan: Resolved. (9) Metabolic acidosis: Plan: Secondary to LENNOX. Management per nephrology. (10) Fecal occult blood test positive: Plan: Melanix stools on second day of admission. Hemoglobin stable. On gastric prophylaxis with pantoprazole 40mg IV BID Plan: Dvt ppx: Heparin SQ, consider increased dose as discussed with ICU since Hemoglobin stable Diet: heart healthy Dispo: ICU, COVID precautions Code: Full Admission and Anticipated Discharge Date Admission Date: October 10, 2020 Subjective Urine output today is negligible. Creatine increased 4.16. Discussed care with Dr Alston. Patient too short of breath to contribute to history. Groaning only. Maintaining sats with FiO2 75% HFNC. Review of Systems Review of Systems: Unobtainable due to cognitive status Physical Exam Constitutional: WD/WN, vitals as above Eyes: + anicteric sclerae; normal pupil size ENMT: external ear and nose normal, oropharynx normal Neck: trachea midline, no thyromegaly Respiratory: + retractions, + uses accessory muscles and + tachypneic; + not able to speak in complete sentence Auscultation: + diminished lung sounds (decreased throughout); no crackles, no rales and no pleural rub Cardiovascular: Rate/Rhythm: regular rate and regular rhythm Extremities: normal capillary refill; no calf tenderness and no pedal edema Gastrointestinal (Abdomen): normal bowel sounds, soft, nontender, no hepatosplenomegaly Psychiatric: Orientation: alert; + not oriented x 3 Results & Data Results & Data ([facility]) Vital Signs (Past 12 Hours) Vital Signs Temp Pulse Pulse Pulse Resp BP Pulse Ox 10/14/20 11:20 89 29 H 93 10/14/20 10:28 36.5 C 82 24 155/98 H 99 10/14/20 09:28 36.4 C L 90 37 H 139/65 91 10/14/20 09:11 76 28 L 93 10/14/20 08:29 36.6 C 91 H 23 197/92 H 97 10/14/20 08:00 77 10/14/20 07:38 65 24 95 10/14/20 07:29 36.6 C 70 26 H 165/92 H 100 10/14/20 06:28 36.6 C 77 26 H 185/81 H 91 10/14/20 05:29 36.6 C 59 L 21 193/77 H 93 10/14/20 04:28 36.6 C 56 L 23 176/87 H 92 10/14/20 03:35 70 26 H 92 10/14/20 03:29 36.6 C 104 H 25 H 183/81 H 93 10/14/20 02:28 36.6 C 68 29 H 178/93 H 92 10/14/20 01:29 36.6 C 67 30 H 165/80 H 97 10/14/20 00:58 36.7 C 66 25 H 178/79 H 97 PG Care Time/CCT Total # of Minutes Spent Total Time Spent with Patient: Total time spent is greater than 50% in coordination of care (as documented) at patient's floor/unit and/or counseling patient: Coding Level of Care Code 25788 Subseq Hosp Care Lvl 3 Diagnoses Acute respiratory failure with hypoxemia J96.01 Acute kidney injury N17.9 Pneumonia due to 2019 novel coronavirus U07.1; J12.82 Bacterial pneumonia J15.9 Elevated troponin R77.8 Elevated d-dimer R79.89 Elevated liver enzymes R74.8 Hypokalemia E87.6 Metabolic acidosis E87.2 Fecal occult blood test positive R19.5
[2020-10-14] MEDS ORDERED: FUROSEMIDE 60 MG in SYRINGE 0 ML IV ONE (13:15)
--- NOTE | 2020-10-14 14:52 | Pharmacy Report ---
Pharmacy Glycemic Short Note 2 - Date of Service October 14, 2020 - Glycemic Short BSG Results (Last 24 hours): 10/13/20 10/13/20 10/14/20 15:45 20:21 00:01 Glucose POC Glucose 172 H 138 H 147 H 10/14/20 10/14/20 10/14/20 04:08 04:40 08:22 Glucose 111 H POC Glucose 114 H 102 H 10/14/20 11:52 Glucose POC Glucose 168 H OUTPATIENT ANTIDIABETIC REGIMEN: * n/a * A1c 6.5% ASSESSMENT: 10/14 * Patient continues on 6 mg of dexamethasone, dextrose discontinued, SCr continues to increase * Patient's BSGs did trend down overnight, fasting 102 mg/dL in the morning, will continue current lantus dosing * Slightly loosened carb ratio between weight based stress of 2 and 3, will tighten if BSGs go upward again. * A1c indicates pre-existing diabetes 10/13 * Patient admitted to ICU with COVID-19, receiving 10 mg of dexamethasone (decrease to 6 mg tomorrow) daily, unknown A1c, no previous documented diagnosis of diabetes, BSGs elevated likely secondary to dexamethasone, patient also on D51/2 NS @ 40 ml/hr, LENNOX today 0.94-->2.85-->3.18 * Started weight based stress of 3 novolog, will dose lantus on scale up to weight based stress of 3, may need to utilize NPH in morning if BSGs remain elevated PLAN FOR INPATIENT GLYCEMIC CONTROL: * Hold outpatient oral diabetes medications * Basal insulin * Lantus 12 units SQ qAM * Bolus insulin * NovoLog per scale ACHS or Q6hrs while NPO * Goal Range: Low 110 mg/dL - High 140 mg/dL * Correction Factor: 25 mg/dL/unit * Nutritional / Prandial insulin per carb ratio of 1 unit per 10 grams CHO consumed PLAN FOR DISCHARGE: * tbd
[2020-10-14 16:14] LABS: BUN Creatinine Ratio 18.2 (10-20); Calcium 7.4 mg/dl (8.5-10.1); Creatinine Clr Calc Pharmacy 8.3 ml/min; Est GFR (African American) 9.5 ml/min; Est GFR (Non-African American) 8.2 ml/min; Magnesium 2.8 mg/dl (1.8-2.4); Phosphorus 2.8 mg/dl (2.5-4.9); Potassium 4.1 mmol/L (3.5-5.1)
[2020-10-14 20:24] LABS: Albumin Globulin Ratio 0.5 (0.9-2); Albumin Level 1.9 gm/dl (3.4-5.0); Bilirubin,Total 0.5 mg/dl (0.2-1); Globulin 4.2 gm/dl (2.5-4.0); Total Protein 6.1 gm/dl (6.4-8.2)
[2020-10-15 05:35] LABS: Basophils # (auto) 0.03 K/uL (0-0.2); Basophils % (auto) 0.2 %; Eosinophils # (auto) 0.02 K/uL (0-0.5); Eosinophils % (auto) 0.1 %; Hematocrit (blood only) 34.4 % (37-47); Hemoglobin 11.9 g/dL (12.0-16.0); Immature Granulocytes # (auto) 0.34 K/uL (0.00-0.02); Immature Granulocytes % (auto) 2.2 %; Lymphocytes # (auto) 0.84 K/uL (1.2-3.4); Lymphocytes % (auto) 5.5 %; Mean Corpuscular Hemoglobin 28.2 pg (25-34); Mean Corpuscular Hgb Conc 34.6 g/dL (32-36); Mean Corpuscular Volume 81.5 fL (80-100); Mean Platelet Volume 11.1 fL (7.4-10.4); Monocytes # (auto) 0.19 K/uL (0.11-0.59); Monocytes % (auto) 1.3 %; Neutrophils # (auto) 13.76 K/uL (1.4-6.5); Neutrophils % (auto) 90.7 %; Nucleated RBC # (auto) 0.11 K/uL (0-0); Nucleated RBC % (auto) 0.7 %; Platelet Count 213 K/uL (130-400); RDW Coefficient of Variation 16.3 % (11.5-14.5); RDW Standard Deviation 48.8 fL (36.4-46.3); Red Blood Count 4.22 M/uL (4.2-5.4); White Blood Count 15.18 K/uL (4.8-10.8)
[2020-10-15 06:00] LABS: Albumin Globulin Ratio 0.6 (0.9-2); Albumin Level 2.1 gm/dl (3.4-5.0); BUN Creatinine Ratio 18.9 (10-20); Bilirubin,Total 0.9 mg/dl (0.2-1); Calcium 7.6 mg/dl (8.5-10.1); Creatinine Clr Calc Pharmacy 7.1 ml/min; Est GFR (African American) 7.8 ml/min; Est GFR (Non-African American) 6.8 ml/min; Globulin 3.7 gm/dl (2.5-4.0); Magnesium 3.1 mg/dl (1.8-2.4); Phosphorus 3.8 mg/dl (2.5-4.9); Potassium 4.1 mmol/L (3.5-5.1); Total Protein 5.8 gm/dl (6.4-8.2)
[2020-10-15] MEDS: cefTRIAXone SODIUM 1,000 MG in DEXTROSE 5% 50 ML IV SCH (06:11)
[2020-10-15] MEDS: HEPARIN SOD 5,000 UNIT/0.5 ML VIAL SQ SCH ×3 (06:13→22:11)
[2020-10-15] MEDS: INSULIN ASPART 100 UNITS/ML 3 ML PEN SC SCH ×4 (07:30→22:10)
[2020-10-15] MEDS: INSULIN GLARGINE SOLOSTAR 100 UNITS/ML 3 ML PEN SC SCH (08:00)
[2020-10-15] MEDS: AZITHROMYCIN 250 MG in DEXTROSE 5% 250 ML IV SCH (08:24)
[2020-10-15] MEDS: ASPIRIN 81 MG ECTAB PO SCH (08:25)
[2020-10-15] MEDS: ESCITALOPRAM OXALATE 20 MG TAB PO SCH (08:25)
[2020-10-15] MEDS: PANTOprazole 40 MG in SYRINGE 0 ML IV SCH (08:25)
[2020-10-15] MEDS: dexAMETHasone 6 MG in SYRINGE 0 ML IV SCH (08:25)
[2020-10-15] MEDS: guaiFENesin 600 MG TABCR PO SCH ×2 (08:25→22:12)
[2020-10-15] MEDS: CHOLECALCIFEROL 1,000 UNITS 25 MCG TAB PO SCH (08:26)
[2020-10-15] MEDS: ZINC SULFATE 220 MG CAPSULE PO SCH (08:26)
[2020-10-15] MEDS ORDERED: SODIUM CHLORIDE 0.9% 1000ML 1,000 ML IV PRN (08:54)
--- NOTE | 2020-10-15 09:14 | Nephrology Progress Note ---
Date of Service October 15, 2020 Assessment & Plan (1) Acute kidney injury: Plan: * Baseline creatinine <1 mg/dL * LENNOX c/w ATN * US without obstruction * Will order urinalysis w/ microscopy * Oliguric despite fluid challenge. Electrolyte balance remains acceptable. Patient remains in injury phase of ATN and is becoming progressively azotemic (steroid therapy). She appears to understand the need for HD and has nodded in consent. Will ask ICU team to place temporary femoral HD catheter. Will provide HD today (3hr 3K 2.5Ca F-160NR, no heparin, attempt 2L UF). Orders placed in EMR and HD RN notified (2) Pneumonia due to 2019 novel coronavirus: Plan: * Received Toclizumab * Remains on Dexamethasone 6 mg IV daily * Remdesivir held due to LENNOX (3) Hypertension: Plan: * SBP 150 - 170 mmHg * Using IV Hydralazine prn SBP > 160 mmHg Admission and Anticipated Discharge Date Admission Date: October 10, 2020 Subjective Mrs. Suero was seen & examined in the ICU this morning. Plan of care was discussed w/ the ICU team. Mrs. Suero remains on high flow oxygen. She was alert but nonconversant. I explained that dialysis is now necessary and she nodded her head "yes" in understanding Review of Systems Review of Systems: Other (unobtainable) Physical Exam Constitutional: + ill appearing Eyes: PERRL, conjunctivae normal, anicteric sclerae ENMT: external ear and nose normal, oropharynx normal Neck: trachea midline, no thyromegaly Respiratory: + tachypneic Cardiovascular: Rate/Rhythm: regular rate and regular rhythm Gastrointestinal (Abdomen): Inspection/Auscultation: normal bowel sounds Skin: normal turgor Neurologic: awake Results & Data ([facility]) Vital Signs (Past 12 Hours) Vital Signs Temp Pulse Pulse Resp BP Pulse Ox 10/15/20 08:00 79 10/15/20 07:32 70 22 96 10/15/20 06:58 36.6 C 83 24 150/79 H 94 10/15/20 03:30 60 26 H 92 10/15/20 03:28 36.6 C 81 21 147/74 H 94 10/15/20 02:58 36.6 C 86 24 155/69 H 94 10/15/20 02:28 36.6 C 89 22 171/66 H 93 10/15/20 01:58 36.6 C 88 27 H 166/71 H 94 10/15/20 01:29 36.6 C 87 25 H 157/78 H 93 10/15/20 00:58 36.5 C 94 H 27 H 172/63 H 92 10/15/20 00:21 36.6 C 101 H 31 H 93 10/14/20 23:53 36.7 C 94 H 26 H 168/82 H 88 L 10/14/20 23:28 36.7 C 90 29 H 182/90 H 87 L 10/14/20 23:20 89 24 90 10/14/20 22:58 36.7 C 82 26 H 171/70 H 86 L 10/14/20 22:29 36.7 C 74 23 158/74 H 95 10/14/20 21:59 36.7 C 81 28 H 173/73 H 92 10/14/20 21:00 36.7 C 74 24 150/84 H 97 Laboratory Results Laboratory Tests 10/14/20 10/15/20 10/15/20 14:58 05:07 05:07 WBC 15.18 H Hgb 11.9 L Hct 34.4 L Plt Count 213 Sodium 146 H Potassium 4.1 Chloride 114 H Carbon Dioxide 21 BUN 108 H Creatinine 5.73 H* D Glucose 111 H Calcium 7.6 L AST 260 H 392 H ALT 171 H 196 H Alkaline Phosphatase 189 H 193 H Albumin 2.1 L PG Care Time/CCT Total # of Minutes Spent Total Time Spent with Patient: Total time spent is greater than 50% in coordination of care (as documented) at patient's floor/unit and/or counseling patient: Coding Level of Care Code 08012 Subseq Hosp Care Lvl 3 Diagnoses Acute kidney injury N17.9 Pneumonia due to 2019 novel coronavirus U07.1; J12.82 Hypertension I10
--- NOTE | 2020-10-15 09:20 | XRay Report ---
XR chest 1V portable CLINICAL HISTORY: covid pneumonia COMPARISON STUDY: October 14, 2020 FINDINGS: No pneumothorax. No pleural effusion. Interval worsening of the airspace opacities at bilateral mid to lower lungs which is partially silho uetting left hemidiaphragm. Cardiomediastinal silhouette is partially obscured by surrounding opacities. Aorta is calcified. Pulmonary vasculature is obscured.. Osseous structures: Minimal degenerative changes of the spine. IMPRESSION: 1. Interval worsening of opacities at bilateral mid to lower lungs since prior study performed yeste rday. ACT 112: Negative or not required by law. The above report was generated using voice recognition software. It may contain grammatical, syntax o r spelling errors. Electronically signed by: Ainsley Pulido DO 10/15/2020 9:18 AM
--- NOTE | 2020-10-15 11:14 | Critical Care Progress Note ---
Date of Service October 15, 2020 Assessment & Plan (1) Pneumonia due to 2019 novel coronavirus: (2) Acute respiratory failure with hypoxemia: (3) Elevated liver enzymes: Plan: Chest x-ray 10/10/2020 personally reviewed: Portable film, fair inspiratory effort, bilateral alveolar opacities appreciated, air bronchograms appreciated left lower lobe --Acute hypoxic respiratory failure Secondary to multilobar pneumonia COVID-19 positive 10/10/20 Procalcitonin 4.75, nasal MRSA negative CRP 31.8, LDH 960 S/p Tocilizumab 10/13/2020 Continue with O2 supplementation to keep oxygen saturation between 88-92% Awake proning will be beneficial for the patient -- LENNOX --> now end-stage Likely multifactorial with remdesivir also playing a role FeNa: 19%, inclined towards ATN/obstructive Monitor BUN/creatinine Avoid nephrotoxic medications Strict ins and outs --Hypertension Continue with amlodipine 5 mg Hydralazine as needed Avoid beta-blockers given the bradycardic episodes that the patient had --Sinus bradycardia I think it is most likely coming from remdesivir --> has been discontinued If the patient has persistent bradycardia I went up to stop --Melanotic stools Patient was on heparin drip before H&H has been stable FOBT positive. H&H has been stable --Transaminitis AST, ALT has again started to trend up, continue to monitor Likely from combination of COVID-19 as well as remdesivir --Dyslipidemia Atorvastatin on hold secondary to transaminitis --Diarrhea Likely from the antibiotics that the patient is getting --Prophylaxis VTE: Heparin GI: Protonix daily Lines: Peripheral Diet: Diabetic diet Plan: In/out: +856, urine output 46 mL Patient did get 60 mg of Lasix overnight with no output BUN today is greater than 100. Patient will need dialysis. I will put a dialysis catheter and have dialysis started today. Continue with amlodipine 5 mg daily as well as hydralazine for the blood pressure systolically today 160 Patient's creatinine is getting worse She is oliguric. I will give her 80 mg of Lasix later today. No current indication for dialysis but it seems if there is no improvement in her renal function that is where her weight will be headed. Diarrhea is likely from the patient getting antibiotics Rule out C. difficile, unlikely Guaifenesin with flutter valve and incentive spirometry Awake proning I have personally spent 38 minutes of critical care time in the direct management of this patient. This is a life/limb threatening event. This includes time spent evaluating patient, direct bedside care, chart review, placing orders, interpretation of diagnostic studies, discussion with consultants, patient, and family members, as well as other required patient management activities. This time is exclusive of all separately billable procedures, and teaching time and separate from and in addition to any other critical care service time. Please note the above document was generated using voice recognition software. It may contain grammatical, syntax or spelling errors. Admission and Anticipated Discharge Date Admission Date: October 10, 2020 Subjective Patient seen and examined at bedside. No acute distress. Patient was on 100% high flow, 55 L saturating 93-94% She says that she is doing okay. Denies any chest pain, no belly pain, no nausea or vomiting. She does state that she is feeling cold. Patient has been afebrile. She has been having fair appetite. Multiple bouts of diarrhea, tarry, [id number]. Review of Systems Review of Systems: All systems reviewed & are unremarkable except as noted in Subjective Physical Exam Physical Exam: Constitutional: No acute distress HEENT: EOMI, PERRLA, Hard to hear Respiratory system: Decreased air entry bilaterally, no wheeze, no rhonchi, positive crackles bilaterally CVS: S1-S2 positive, no murmurs or gallops Abdomen: Soft, nontender, nondistended, positive bowel sounds x4 Extremities: +2 pulses bilaterally radialis/ dorsalis pedis, no cyanosis, no edema Neuro: Awake alert oriented x3 Psych: Normal mood and affect G/U: Positive Falk Skin: no rashes, warm and dry Lymphatic: no cervical or axillary lymphadenopathy Results & Data Results & Data ([facility]) Vital Signs (Past 12 Hours) Vital Signs Temp Pulse Pulse Resp BP Pulse Ox 10/15/20 08:00 79 10/15/20 07:32 70 22 96 10/15/20 06:58 36.6 C 83 24 150/79 H 94 10/15/20 03:30 60 26 H 92 10/15/20 03:28 36.6 C 81 21 147/74 H 94 10/15/20 02:58 36.6 C 86 24 155/69 H 94 10/15/20 02:28 36.6 C 89 22 171/66 H 93 10/15/20 01:58 36.6 C 88 27 H 166/71 H 94 10/15/20 01:29 36.6 C 87 25 H 157/78 H 93 10/15/20 00:58 36.5 C 94 H 27 H 172/63 H 92 10/15/20 00:21 36.6 C 101 H 31 H 93 10/14/20 23:53 36.7 C 94 H 26 H 168/82 H 88 L 10/14/20 23:28 36.7 C 90 29 H 182/90 H 87 L 10/14/20 23:20 89 24 90 10/15/20 05:07 10/15/20 05:07 Coding Level of Care Code Critical Care 1st 30-74 mins Diagnoses Pneumonia due to 2019 novel coronavirus U07.1; J12.82 Acute respiratory failure with hypoxemia J96.01 Elevated liver enzymes R74.8 Time Spent (min) 38
--- NOTE | 2020-10-15 11:16 | Procedure Note ---
Procedure Note Date of Service October 15, 2020 Supervising Physician Co-Signing Physician Notes Procedure: Inserting ultrasound-guided dialysis catheter Para Educator: Dr. Juliane Rod Indication: Acute renal failure Consent: Verbal consent obtained from patient and verified with timeout prior to procedure. Anesthesia: 1% lidocaine without epinephrine local. Procedure: Consent was verified and timeout performed. Appropriate imaging studies were reviewed prior to the procedure. Under aseptic and sterile condition, right femoral vein was accessed under direct ultrasound guidance. Guidewire was confirmed to be within the lumen of vein with the help of ultrasound. Catheter was introduced via Seldinger technique. Guide a wire was removed. Good non-pulsatile blood flow was appreciated from all the ports. The catheter was placed at 24 cm and sutured in place. BioPatch was applied to the catheter and a sterile Tegaderm dressing was applied over the catheter with careful attention to sterility. Patient tolerated the procedure well. Blood loss: Less than 3 cc Complications: None Coding CPT Codes Tubes, Drains, and Vasc Access - Tubes, Drains, and Vasc Access: [id number] Insertion of cannula for hemodialysis ([id number]) Tubes, Drains, and Vasc Access - Tubes, Drains, and Vasc Access: [id number] Ultrasound Guidance For Vascular ([id number]) [facility] [place] Procedure Codes (Charges) Tubes, Drains, and Vasc Access Procedure 1: Tubes, Drains, and Vasc Access: [id number] Insertion of cannula for hemodialysis Procedure 2: Tubes, Drains, and Vasc Access: [id number] Ultrasound Guidance For Vascular
[2020-10-15 21:32] LABS: Appearance Urine Clear (Clear); Bilirubin Urine Negative (Negative); Blood Urine 3+ (Negative); Color Urine Yellow; Epithelial Cell Urine Auto 20-30 /lpf (0-5); Glucose Urine UA Trace (Negative); Ketones Urine Negative (Negative); Leukocyte Esterase Urine Trace (Negative); Nitrite Urine Negative (Negative); Protein Urine 1+ (Negative); Urobilinogen Urine Negative (Negative); pH Urine 5.5 (4.5-7.5)
[2020-10-15 21:43] LABS: Bacteria Urine Automated 1+ (Negative); RBC Urine Automated 0-4 /hpf (0-4)
[2020-10-16] MEDS: hydrALAZINE HCL 20 MG/ML VIAL IV PRN (05:15)
[2020-10-16 05:33] LABS: Hematocrit (blood only) 32.2 % (37-47); Hemoglobin 11.1 g/dL (12.0-16.0); Mean Corpuscular Hemoglobin 29.1 pg (25-34); Mean Corpuscular Hgb Conc 34.5 g/dL (32-36); Mean Corpuscular Volume 84.3 fL (80-100); Mean Platelet Volume 12.2 fL (7.4-10.4); Nucleated RBC # (auto) 0.19 K/uL (0-0); Nucleated RBC % (auto) 1.1 %; Platelet Count 191 K/uL (130-400); RDW Coefficient of Variation 16.4 % (11.5-14.5); RDW Standard Deviation 49.8 fL (36.4-46.3); Red Blood Count 3.82 M/uL (4.2-5.4); White Blood Count 17.05 K/uL (4.8-10.8)
[2020-10-16] MEDS: HEPARIN SOD 5,000 UNIT/0.5 ML VIAL SQ SCH ×3 (05:45→21:48)
[2020-10-16 06:16] LABS: Albumin Globulin Ratio 0.6 (0.9-2); Albumin Level 2.3 gm/dl (3.4-5.0); BUN Creatinine Ratio 14.1 (10-20); Bilirubin,Total 0.9 mg/dl (0.2-1); Calcium 8.2 mg/dl (8.5-10.1); Creatinine Clr Calc Pharmacy 8.5 ml/min; Est GFR (African American) 9.9 ml/min; Est GFR (Non-African American) 8.5 ml/min; Magnesium 2.5 mg/dl (1.8-2.4); Phosphorus 3.6 mg/dl (2.5-4.9); Potassium 4.1 mmol/L (3.5-5.1); Total Protein 6.3 gm/dl (6.4-8.2)
--- NOTE | 2020-10-16 07:31 | Hospitalist Progress Note ---
Date of Service October 15, 2020 Assessment & Plan (1) Acute respiratory failure with hypoxemia: Plan: Mrs. Suero is a 75 yo woman who presented with fever, cough and fatigue of 3 days duration, admitted for COVID 19 and bacterial pneumonia. - septic, SIRS criteria met on admission (WBC, RR, HR). Lactate not elevated. - O2 sat < 94, classifying as severe COVID 19 - Aim O2 sats > 94%, fluctuating but concerning increase in FiO2 requirement - CXR is worsening, CRP improving (2) Acute kidney injury: Plan: Suspected ATN due to COVID-19, ?remdesivir. Appreciate ongoing nephrology management of this now on dialysis today CK WNL (3) Pneumonia due to 2019 novel coronavirus: Plan: Remdesivir holding due to LENNOX, elevated LFTs and bradycardia. Dexamethasone 6mg IV daily for 10 days Tocilizumab deferred due to elevated LFTs (4) Bacterial pneumonia: Plan: Cefepime given in ER. Continue ceftriaxone and azithromycin. Procalcitonin downtrending (5) Elevated troponin: Plan: - consistent with type II PA, supply-demand mismatch (6) Elevated d-dimer: Plan: - 4890 on admission, given her severity of illness this appears appropriate without a pulmonary embolism - US doppler negative for DVT - unable to perform CT for PE due to LENNOX (7) Elevated liver enzymes: Plan: - AST and ALT elevated - trend CMP - avoid Acetaminophen - likely related to acute COVID 19 infection (8) Hypokalemia: Plan: Resolved. (9) Metabolic acidosis: Plan: Secondary to LENNOX. Management per nephrology. (10) Fecal occult blood test positive: Plan: Melanic stools on second day of admission. Hemoglobin stable. On gastric prophylaxis with pantoprazole 40mg IV BID Plan: Dvt ppx: Heparin SQ, consider increasing dose give stability in Hgb Diet: heart healthy Dispo: ICU, COVID precautions, prognosis guarded Code: Full Admission and Anticipated Discharge Date Admission Date: October 10, 2020 Subjective Fluctuating amount of alertness. To me she appears to be more alert and answering questions but per nursing there appears to have been a slow decline. More garbled speech today. Suspect fluctuates with her hypoxia. Unable to speak in full sentences. Review of Systems Review of Systems: All systems reviewed & are unremarkable except as noted in HPI & below Physical Exam Constitutional: WD/WN, vitals as above Eyes: + anicteric sclerae; normal pupil size ENMT: external ear and nose normal, oropharynx normal Neck: trachea midline, no thyromegaly Respiratory: + retractions, + uses accessory muscles and + tachypneic; + not able to speak in complete sentence Auscultation: + diminished lung sounds (improving); no crackles, no rales and no pleural rub Cardiovascular: Rate/Rhythm: regular rate and regular rhythm Extremities: normal capillary refill; no calf tenderness and no pedal edema Gastrointestinal (Abdomen): normal bowel sounds, soft, nontender, no hepatosplenomegaly Psychiatric: Orientation: alert; + not oriented x 3 Results & Data Results & Data ([facility]) Vital Signs (Past 12 Hours) Vital Signs Temp Pulse Resp BP Pulse Ox 10/16/20 06:30 37.0 C 113 H 27 H 148/69 H 98 10/16/20 06:00 37.0 C 114 H 31 H 154/72 H 98 10/16/20 05:30 37.0 C 106 H 36 H 166/76 H 96 10/16/20 05:00 37.1 C 97 H 28 H 174/113 H 87 L 10/16/20 04:30 37.1 C 69 23 174/71 H 71 L 10/16/20 04:00 37.2 C 83 24 148/77 H 96 10/16/20 03:31 85 24 94 10/16/20 03:29 37.2 C 82 24 163/68 H 94 10/16/20 02:59 37.3 C 75 22 161/75 H 93 10/16/20 02:00 37.3 C 77 27 H 142/72 H 90 10/16/20 01:00 37.3 C 80 22 119/63 93 10/16/20 00:30 37.3 C 73 21 112/66 93 10/15/20 23:30 37.3 C 79 25 H 144/66 H 94 10/15/20 23:05 80 24 94 10/15/20 23:00 37.1 C 83 27 H 139/70 95 10/15/20 22:30 37.0 C 92 H 34 H 150/69 H 93 10/15/20 21:59 37.1 C 82 24 183/95 H 95 10/15/20 21:00 37.2 C 91 H 30 H 177/95 H 90 10/15/20 20:32 37.2 C 10/15/20 19:59 37.1 C 112 H 32 H 180/85 H 88 L 10/15/20 19:35 97 H 30 H 97 PG Care Time/CCT Total # of Minutes Spent Total Time Spent with Patient: Total time spent is greater than 50% in coordination of care (as documented) at patient's floor/unit and/or counseling patient: Coding Level of Care Code 10601 Subseq Hosp Care Lvl 3 Diagnoses Acute respiratory failure with hypoxemia J96.01 Acute kidney injury N17.9 Pneumonia due to 2019 novel coronavirus U07.1; J12.82 Bacterial pneumonia J15.9 Elevated troponin R77.8 Elevated d-dimer R79.89 Elevated liver enzymes R74.8 Hypokalemia E87.6 Metabolic acidosis E87.2 Fecal occult blood test positive R19.5
--- NOTE | 2020-10-16 08:33 | Critical Care Progress Note ---
Date of Service October 16, 2020 Assessment & Plan (1) Pneumonia due to 2019 novel coronavirus: (2) Acute respiratory failure with hypoxemia: (3) Elevated liver enzymes: Plan: Chest x-ray 10/10/2020 personally reviewed: Portable film, fair inspiratory effort, bilateral alveolar opacities appreciated, air bronchograms appreciated left lower lobe --Acute hypoxic respiratory failure Secondary to multilobar pneumonia COVID-19 positive 10/10/20 Procalcitonin 4.75, nasal MRSA negative CRP 31.8, LDH 960 S/p Tocilizumab 10/13/2020 S/p 5 days of azithromycin and Rocephin Continue with O2 supplementation to keep oxygen saturation between 88-92% Awake proning will be beneficial for the patient --Metabolic encephalopathy Likely secondary to elevated BUN Patient did get dialyzed on 10/15/2020 Aspiration precautions -- LENNOX --> now end-stage Likely multifactorial with remdesivir also playing a role FeNa: 19%, inclined towards ATN/obstructive S/p first session of HD 10/15/2020 --Hypertension Continue with amlodipine 5 mg Hydralazine as needed Avoid beta-blockers given the bradycardic episodes that the patient had --Sinus bradycardia I think it is most likely coming from remdesivir --> has been discontinued If the patient has persistent bradycardia I went up to stop --Melanotic stools Patient was on heparin drip before H&H has been stable FOBT positive. H&H has been stable --Transaminitis AST, ALT trending down, continue to monitor Likely from combination of COVID-19 as well as remdesivir --Dyslipidemia Atorvastatin on hold secondary to transaminitis --Prophylaxis VTE: Heparin GI: Protonix daily Lines: Right femoral Shiley 10/15/2020, right radial 10/16/2020, right IJ 10/16/2020, positive Falk, positive rectal tube Diet: N.p.o. Plan: In/out: -800, urine output 46, dialysis output 1500 Patient's mental status is deteriorating. I do not think she will be able to maintain her airway. Plan will be to intubate the patient. Patient's was called and updated regarding the plan of intubation. He was made aware of the patient's condition is critical. All of his questions were answered in depth. We will start the patient on diabetic diet through tube feeds. Overall prognosis is guarded I have personally spent 39 minutes of critical care time in the direct management of this patient. This is a life/limb threatening event. This includes time spent evaluating patient, direct bedside care, chart review, placing orders, interpretation of diagnostic studies, discussion with consultants, patient, and family members, as well as other required patient management activities. This time is exclusive of all separately billable procedures, and teaching time and separate from and in addition to any other critical care service time. Please note the above document was generated using voice recognition software. It may contain grammatical, syntax or spelling errors. Admission and Anticipated Discharge Date Admission Date: October 10, 2020 Subjective Patient seen and examined at bedside. No acute distress. Patient is getting more lethargic. She is on BiPAP at the time of examination saturating 93% on 45% FiO2 Denies any chest pain. She does state that she is the same. No headache, no nausea or vomiting. Review of Systems Review of Systems: All systems reviewed & are unremarkable except as noted in Subjective Physical Exam Physical Exam: Constitutional: No acute distress HEENT: EOMI, PERRLA, Hard to hear Respiratory system: Decreased air entry bilaterally, no wheeze, no rhonchi, positive crackles bilaterally CVS: S1-S2 positive, no murmurs or gallops Abdomen: Soft, nontender, nondistended, positive bowel sounds x4 Extremities: +2 pulses bilaterally radialis/ dorsalis pedis, no cyanosis, no edema Neuro: Awake alert oriented to self and place Psych: Flat mood and affect G/U: Positive Falk Skin: no rashes, warm and dry Lymphatic: no cervical or axillary lymphadenopathy Results & Data Results & Data ([facility]) Vital Signs (Past 12 Hours) Vital Signs Temp Pulse Resp BP Pulse Ox 10/16/20 07:55 114 H 10/16/20 07:45 104 H 35 H 97 10/16/20 06:30 37.0 C 113 H 27 H 148/69 H 98 10/16/20 06:00 37.0 C 114 H 31 H 154/72 H 98 10/16/20 05:30 37.0 C 106 H 36 H 166/76 H 96 10/16/20 05:00 37.1 C 97 H 28 H 174/113 H 87 L 10/16/20 04:30 37.1 C 69 23 174/71 H 71 L 10/16/20 04:00 37.2 C 83 24 148/77 H 96 10/16/20 03:31 85 24 94 10/16/20 03:29 37.2 C 82 24 163/68 H 94 10/16/20 02:59 37.3 C 75 22 161/75 H 93 10/16/20 02:00 37.3 C 77 27 H 142/72 H 90 10/16/20 01:00 37.3 C 80 22 119/63 93 10/16/20 00:30 37.3 C 73 21 112/66 93 10/15/20 23:30 37.3 C 79 25 H 144/66 H 94 10/15/20 23:05 80 24 94 10/15/20 23:00 37.1 C 83 27 H 139/70 95 10/15/20 22:30 37.0 C 92 H 34 H 150/69 H 93 10/15/20 21:59 37.1 C 82 24 183/95 H 95 10/15/20 21:00 37.2 C 91 H 30 H 177/95 H 90 10/16/20 04:59 10/16/20 04:59 Coding Level of Care Code Critical Care 1st 30-74 mins Diagnoses Pneumonia due to 2019 novel coronavirus U07.1; J12.82 Acute respiratory failure with hypoxemia J96.01 Elevated liver enzymes R74.8 Time Spent (min) 39
[2020-10-16] MEDS: PANTOprazole 40 MG in SYRINGE 0 ML IV SCH (08:36)
[2020-10-16] MEDS: dexAMETHasone 6 MG in SYRINGE 0 ML IV SCH (08:36)
[2020-10-16] MEDS ORDERED: INSULIN GLARGINE SOLOSTAR 100 UNITS/ML 3 ML PEN SC STA (09:02)
[2020-10-16] MEDS: INSULIN ASPART 100 UNITS/ML 3 ML PEN SC SCH ×3 (09:04→18:07)
--- NOTE | 2020-10-16 09:09 | Nephrology Progress Note ---
Date of Service October 16, 2020 Assessment & Plan (1) Acute kidney injury: Plan: * Baseline creatinine <1 mg/dL * LENNOX c/w ATN * US without obstruction * Urinalysis 10/15 negative for casts * HD initiated yesterday due to oliguria and progressive azotemia. Dialysis was performed yesterday for 3 hrs w/ 1500 cc UF. Heparin was held due to + FOBT. Dialysis circuit clotted x2 during treatment * Plan of care discussed w/ ICU team this am. Electrolyte balance is acceptable this morning. Patient is being intubated for airway protection. Will hold HD today and reassess in am (2) Pneumonia due to 2019 novel coronavirus: Plan: * Received Toclizumab 10/13/20 * Remains on Dexamethasone 6 mg IV daily * Remdesivir held due to LENNOX (3) Hypertension: Plan: * SBP has been labile 114 - 170 mm Hg * Using IV Hydralazine prn SBP > 160 mm Hg Admission and Anticipated Discharge Date Admission Date: October 10, 2020 Subjective Ms. Suero remains on respiratory isolation and high flow oxygen due to COVID + status. She was dialyzed yesterday for 3 hrs w/ 1500 cc UF. Heparin was held due to + FOBT. Dialysis circuit clotted x2 during treatment. This morning patient has increased work of breathing and is no longer alert. ICU staff are in the process of initiating mechanical ventilation. Review of Systems Review of Systems: Unobtainable due to cognitive status Physical Exam Physical Exam: withheld due to COVID + status Results & Data ([facility]) Vital Signs (Past 12 Hours) Vital Signs Temp Pulse Resp BP Pulse Ox 10/16/20 07:55 114 H 10/16/20 07:45 104 H 35 H 97 10/16/20 06:30 37.0 C 113 H 27 H 148/69 H 98 10/16/20 06:00 37.0 C 114 H 31 H 154/72 H 98 10/16/20 05:30 37.0 C 106 H 36 H 166/76 H 96 10/16/20 05:00 37.1 C 97 H 28 H 174/113 H 87 L 10/16/20 04:30 37.1 C 69 23 174/71 H 71 L 10/16/20 04:00 37.2 C 83 24 148/77 H 96 10/16/20 03:31 85 24 94 10/16/20 03:29 37.2 C 82 24 163/68 H 94 10/16/20 02:59 37.3 C 75 22 161/75 H 93 10/16/20 02:00 37.3 C 77 27 H 142/72 H 90 10/16/20 01:00 37.3 C 80 22 119/63 93 10/16/20 00:30 37.3 C 73 21 112/66 93 10/15/20 23:30 37.3 C 79 25 H 144/66 H 94 10/15/20 23:05 80 24 94 10/15/20 23:00 37.1 C 83 27 H 139/70 95 10/15/20 22:30 37.0 C 92 H 34 H 150/69 H 93 10/15/20 21:59 37.1 C 82 24 183/95 H 95 Laboratory Results Laboratory Tests 10/15/20 10/16/20 10/16/20 05:07 04:59 04:59 WBC 17.05 H Hgb 11.1 L Hct 32.2 L Plt Count 191 Sodium 142 Potassium 4.1 Chloride 109 H Carbon Dioxide 23 BUN 66 H Creatinine 4.73 H* D Glucose 77 Calcium 8.2 L Phosphorus 3.6 Magnesium 2.5 H Total Bilirubin 0.9 AST 392 H 213 H ALT 196 H 179 H Alkaline Phosphatase 193 H 197 H Ammonia Albumin 2.3 L 10/16/20 08:08 WBC Hgb Hct Plt Count Sodium Potassium Chloride Carbon Dioxide BUN Creatinine Glucose Calcium Phosphorus Magnesium Total Bilirubin AST ALT Alkaline Phosphatase Ammonia Pending Albumin Laboratory Tests 10/15/20 20:00 Urine Color Yellow Urine Appearance Clear Urine pH 5.5 Ur Specific [place] 1.010 Urine Protein 1+ H Urine Glucose (UA) Trace H Urine Blood 3+ H Urine WBC (Auto) 5-10 H Urine RBC (Auto) 0-4 PG Care Time/CCT Total # of Minutes Spent Total Time Spent with Patient: Total time spent is greater than 50% in coordination of care (as documented) at patient's floor/unit and/or counseling patient: Coding Level of Care Code 44056 Subseq Hosp Care Lvl 3 Diagnoses Acute kidney injury N17.9 Pneumonia due to 2019 novel coronavirus U07.1; J12.82 Hypertension I10
[2020-10-16] MEDS: ESCITALOPRAM OXALATE 20 MG TAB PO SCH (10:05)
[2020-10-16] MEDS: CHOLECALCIFEROL 1,000 UNITS 25 MCG TAB PO SCH (10:05)
[2020-10-16] MEDS: guaiFENesin 600 MG TABCR PO SCH ×2 (10:05→20:46)
[2020-10-16] MEDS: ZINC SULFATE 220 MG CAPSULE PO SCH (10:05)
[2020-10-16] MEDS ORDERED: RAPID SEQUENCE INDUCTION BAG ONE (10:13)
[2020-10-16] MEDS ORDERED: PROPOFOL IV EMULSION 10 MG/ML 100 ML VIAL IV ONE (11:12)
--- NOTE | 2020-10-16 11:22 | Pharmacy Report ---
Pharmacy Glycemic Short Note 2 - Date of Service October 16, 2020 - Glycemic Short BSG Results (Last 24 hours): 10/15/20 10/15/20 10/15/20 12:16 15:47 21:56 Glucose POC Glucose 162 H 98 118 H 10/16/20 10/16/20 04:59 08:39 Glucose 77 POC Glucose 88 OUTPATIENT ANTIDIABETIC REGIMEN: * N/a * HbA1c = 6.5% (10/14/20) ASSESSMENT: 10/16: * Patient received a total of 15 units of insulin yesterday (12 units basal + 3 units bolus) * BSGs well controlled: [id number] mg/dL * Fasting BSG was 88 mg/dL this AM * May be secondary to receiving HD yesterday * Regardless, Fastings have been below goal for a few days so will decrease basal 20% today 10/14: * Patient continues on 6 mg of dexamethasone, dextrose discontinued, SCr continues to increase * Patient's BSGs did trend down overnight, fasting 102 mg/dL in the morning, will continue current lantus dosing * Slightly loosened carb ratio between weight based stress of 2 and 3, will tighten if BSGs go upward again. * A1c indicates pre-existing diabetes 10/13: * Patient admitted to ICU with COVID-19, receiving 10 mg of dexamethasone (decrease to 6 mg tomorrow) daily, unknown A1c, no previous documented diagnosis of diabetes, BSGs elevated likely secondary to dexamethasone, patient also on D51/2 NS @ 40 ml/hr, LENNOX today 0.94-->2.85-->3.18 * Started weight based stress of 3 novolog, will dose lantus on scale up to weight based stress of 3, may need to utilize NPH in morning if BSGs remain elevated PLAN FOR INPATIENT GLYCEMIC CONTROL: * Basal insulin - decreased * Lantus 10 units SC qAM * Bolus insulin * NovoLog per scale ACHS or Q6hrs while NPO * Goal Range: Low 110 mg/dL - High 140 mg/dL * Correction Factor: 25 mg/dL/unit * Nutritional / Prandial insulin per carb ratio of 1 unit per 10 grams CHO consumed PLAN FOR DISCHARGE: * HbA1c was 6.5% from this admission indicating patient has newly diagnosed Type 2 Diabetes. * Could consider dietary and lifestyle changes for now. If renal function improves prior to discharge, then consider Metformin.
[2020-10-16] MEDS ORDERED: NOREPINEPHRINE/D5W 8 MG/508 ML IV ONE (11:43)
--- NOTE | 2020-10-16 12:05 | XRay Report ---
SINGLE VIEW CHEST CLINICAL HISTORY: Respiratory failure. Covid. FINDINGS: An AP, portable, semierect chest radiograph is compared to study dated 10/15/2020. A right in ternal jugular central venous catheter has been placed. The tip projects over the SVC. An endotrachea l tube has been placed. The tip projects approximately 4 cm above the sherie. The cardiomediastinal s ilhouette is unremarkable noting atherosclerotic calcification of the thoracic aorta. Multifocal airs pace consolidation is seen throughout both lungs. No large pleural effusion or pneumothorax is seen. The skeletal structures are osteopenic. The bony thorax is grossly intact. IMPRESSION: 1. An endotracheal tube and a right internal jugular central venous catheter have been placed as abov e. 2. No pneumothorax is seen post procedure. 3. Multifocal airspace consolidation has not significantly changed from yesterday and is consistent w ith the reported history of viral pneumonia. Radiographic follow-up to resolution is recommended. ACT 112: Negative or not required by law. Electronically signed by: Raf Mckeon M.D. 10/16/2020 12:03 PM
--- NOTE | 2020-10-16 12:22 | Procedure Note ---
Procedure Note Date of Service October 16, 2020 Note Procedure: Inserting ultrasound-guided central groundman/lineman: Dr. Juliane Rod Indication: Acute hypoxic respiratory failure Consent: Emergent consent was applied Anesthesia: 1% lidocaine without epinephrine local. Procedure: Consent was verified and timeout performed. Appropriate imaging studies were reviewed prior to the procedure. Under aseptic and sterile condition, right IJ vein was accessed under direct ultrasound guidance. Guidewire was confirmed to be within the lumen of vein with the help of ultrasound. Catheter was introduced via Seldinger technique. Guide a wire was removed. Good non-pulsatile blood flow was appreciated from all the ports. The catheter was placed at 16 cm and sutured in place. BioPatch was applied to the catheter and a sterile Tegaderm dressing was applied over the catheter with careful attention to sterility. Lung sliding was appreciated post procedure with the help ultrasound. Chest x-ray to follow Patient tolerated the procedure well. Blood loss: Less than 2 cc Complications: None Coding CPT Codes Tubes, Drains, and Vasc Access - Tubes, Drains, and Vasc Access: [id number] Place catheter in vein superior or inferior vena cava ([id number]) Tubes, Drains, and Vasc Access - Tubes, Drains, and Vasc Access: [id number] Ultrasound Guidance For Vascular ([id number]) [facility] [place] Procedure Codes (Charges) Tubes, Drains, and Vasc Access Procedure 1: Tubes, Drains, and Vasc Access: [id number] Place catheter in vein superior or inferior vena cava Procedure 2: Tubes, Drains, and Vasc Access: [id number] Ultrasound Guidance For Vascular
--- NOTE | 2020-10-16 12:23 | Procedure Note ---
Procedure Note Date of Service October 16, 2020 Note ARTERIAL LINE PROCEDURE NOTE: Procedure: Arterial Line Placement Attending: Dr. Juliane Rod MD Indication: Monitoring on Pressors Anesthesia: General anesthesia Emergent consent was applied A time-out was completed verifying correct patient, procedure, site, positioning, and implant(s) or special equipment if applicable. Allens test was performed to ensure adequate perfusion. Patients right wrist was prepped and draped in the usual sterile fashion. Ultrasound guidance was used to aid needle placement. A 20g Arrow arterial line was introduced into the right radial artery. Catheter was threaded, and the needle was removed with appropriate pulsatile blood return. Good waveform was observed on the monitor. The patient tolerated the procedure well. Confirmation of placement with ultrasound. Complications: None Blood Loss: None Coding CPT Codes Tubes, Drains, and Vasc Access - Tubes, Drains, and Vasc Access: [id number] Insertion Catheter, Artery ([id number]) Tubes, Drains, and Vasc Access - Tubes, Drains, and Vasc Access: [id number] Ultrasound Guidance For Vascular ([id number]) [facility] [place] Procedure Codes (Charges) Tubes, Drains, and Vasc Access Procedure 1: Tubes, Drains, and Vasc Access: [id number] Insertion Catheter, Artery Procedure 2: Tubes, Drains, and Vasc Access: [id number] Ultrasound Guidance For Vascular
--- NOTE | 2020-10-16 12:24 | Procedure Note ---
Procedure Note Date of Service October 16, 2020 Note INTUBATION PROCEDURE NOTE: Attending: Dr Juliane Rod MD Patient was evaluated and plan to intubate was made for worsening mental status and airway protection Sedative agent used: Etomidate 20 mg, lidocaine 100 mg -> patient was given total 6 mg of midazolam post intubation Paralysis agent used: 50 of rocuronium Emergent consent was implied given patients rapidly declining clinical status and need for airway protection. The patient was prepared in the appropriate fashion. The patient was easily pre-oxygenated by using [id number] ventilation. With help of glide scope grade 2 vocal cords were visualized and 7.5 [place] ETT was introduced on first attempt to 23 cm at the lip. The stylette was removed and balloon was inflated with 10mL of air. Appropriate Colorimetric change was appreciated for at least 10 breaths. Bilateral chest rise and breath sounds were appreciated without air sounds in the epigastrium. Patient tolerated the procedure well and there were no immediate complications. Chest Xray to follow for confirming placement. Coding CPT Codes Resuscitation - Resuscitation: 96052 Endotracheal Intubation, emergency ([id number]) [facility] [place] Procedure Codes (Charges) Resuscitation Resuscitation: [id number] Endotracheal Intubation, emergency
[2020-10-16 13:32] LABS: iSTAT Art Bld Gas pCO2 Correct 43 mmHg (35-46); iSTAT Art Bld Gas pH Corrected 7.305 (7.35-7.45); iSTAT Arterial Blood Gas HCO3 21 meg/L (19-24); iSTAT Arterial Blood Gas pCO2 43 mmHg (35-46); iSTAT Arterial Blood Gas pH 7.31 (7.35-7.45); iSTAT Arterial Blood Gas pO2 141 mmHg (80-95); iSTAT Arterial Blood Gas pO2 C 141; iSTAT Carbon Dioxide 22 mmol/L (24-31); iSTAT FiO2 100 %; iSTAT Hematocrit 26 % (37-47); iSTAT Hemoglobin 8.8 g/dl (12.0-16.0); iSTAT Potassium 4.7 mmol/L (3.3-5.0); iSTAT Site Art Line; iSTAT Sodium 140 mmol/L (135-144)
[2020-10-16] MEDS ORDERED: PROPOFOL BOLUS FROM BAG IV PRN (13:37)
[2020-10-16] MEDS ORDERED: STAT IV Infusion **Titration per Protocol STA ×3 (13:37→13:57)
[2020-10-16] MEDS: ASPIRIN 81 MG ECTAB PO SCH (13:45)
[2020-10-16] MEDS: fentaNYL DRIP 1,250 MCG/250 ML BAG IV SCH ×2 (13:45→23:09)
[2020-10-16] MEDS: propofoL 1,000 MG/100 ML VIAL IV SCH ×2 (13:53→18:32)
[2020-10-16] MEDS: NOREPINEPHRINE/D5W 8 MG/508 ML BAG IV SCH (13:58)
[2020-10-16] MEDS ORDERED: NOREPINEPHRINE/D5W 8 MG/508 ML BAG IV SCH (14:00)
[2020-10-16] MEDS ORDERED: Nursing to Pharmacy Communication SCH (18:15)
[2020-10-16] MEDS ORDERED: ETOMIDATE 2 MG/ML 20 ML VIAL IV ONE (19:45)
[2020-10-16] MEDS ORDERED: LIDOCAINE 2% 20 MG/ML 5 ML SYR IV ONE (19:45)
[2020-10-16] MEDS ORDERED: ROCURONIUM BROMIDE 10 MG/ML 5 ML VIAL IV ONE (19:45)
[2020-10-16] MEDS ORDERED: MIDAZOLAM HCL 5 MG/ML VIAL IV ONE (19:45)
[2020-10-17] MEDS: INSULIN ASPART 100 UNITS/ML 3 ML PEN SC SCH ×4 (00:42→18:38)
[2020-10-17] MEDS: propofoL 1,000 MG/100 ML VIAL IV SCH ×4 (04:24→21:58)
[2020-10-17 04:41] LABS: Basophils # (auto) 0.01 K/uL (0-0.2); Basophils % (auto) 0.1 %; Eosinophils # (auto) 0.07 K/uL (0-0.5); Eosinophils % (auto) 0.4 %; Hematocrit (blood only) 27.7 % (37-47); Hemoglobin 9.3 g/dL (12.0-16.0); Immature Granulocytes # (auto) 0.42 K/uL (0.00-0.02); Immature Granulocytes % (auto) 2.6 %; Lymphocytes # (auto) 0.89 K/uL (1.2-3.4); Lymphocytes % (auto) 5.5 %; Mean Corpuscular Hgb Conc 33.6 g/dL (32-36); Mean Corpuscular Volume 83.4 fL (80-100); Mean Platelet Volume 11.3 fL (7.4-10.4); Monocytes # (auto) 0.19 K/uL (0.11-0.59); Monocytes % (auto) 1.2 %; Neutrophils # (auto) 14.71 K/uL (1.4-6.5); Neutrophils % (auto) 90.2 %; Nucleated RBC # (auto) 0.12 K/uL (0-0); Nucleated RBC % (auto) 0.8 %; Platelet Count 168 K/uL (130-400); RDW Coefficient of Variation 16.7 % (11.5-14.5); RDW Standard Deviation 50.9 fL (36.4-46.3); Red Blood Count 3.32 M/uL (4.2-5.4); White Blood Count 16.29 K/uL (4.8-10.8)
[2020-10-17 05:16] LABS: BUN Creatinine Ratio 13.9 (10-20); Bilirubin Direct 0.1 mg/dl (0-0.2); Bilirubin,Total 0.9 mg/dl (0.2-1); Creatinine Clr Calc Pharmacy 6.3 ml/min; Magnesium 2.7 mg/dl (1.8-2.4); Phosphorus 6.6 mg/dl (2.5-4.9); Potassium 4.9 mmol/L (3.5-5.1); Total Protein 5.4 gm/dl (6.4-8.2)
[2020-10-17 05:31] LABS: iSTAT Art Bld Gas pCO2 Correct 35 mmHg (35-46); iSTAT Art Bld Gas pH Corrected 7.345 (7.35-7.45); iSTAT Arterial Blood Gas HCO3 19 meg/L (19-24); iSTAT Arterial Blood Gas pCO2 36 mmHg (35-46); iSTAT Arterial Blood Gas pH 7.34 (7.35-7.45); iSTAT Arterial Blood Gas pO2 63 mmHg (80-95); iSTAT Arterial Blood Gas pO2 C 61; iSTAT Carbon Dioxide 20 mmol/L (24-31); iSTAT FiO2 45 %; iSTAT Hematocrit 28 % (37-47); iSTAT Hemoglobin 9.5 g/dl (12.0-16.0); iSTAT Potassium 4.8 mmol/L (3.3-5.0); iSTAT Site Art Line; iSTAT Sodium 138 mmol/L (135-144)
[2020-10-17] MEDS: HEPARIN SOD 5,000 UNIT/0.5 ML VIAL SQ SCH ×3 (06:31→20:21)
--- NOTE | 2020-10-17 06:55 | Hospitalist Progress Note ---
Date of Service October 16, 2020 Assessment & Plan (1) Acute respiratory failure with hypoxemia: Plan: Mrs. Suero is a 75 yo woman who presented with fever, cough and fatigue of 3 days duration, admitted for COVID 19 and bacterial pneumonia. - septic, SIRS criteria met on admission (WBC, RR, HR). Lactate not elevated. - O2 sat < 94, classifying as severe COVID 19 - Aim O2 sats > 94%, fluctuating but concerning increase in FiO2 requirement, currently on CPAP - CXR is worsening, CRP improving (2) Acute kidney injury: Plan: Suspected ATN due to COVID-19, ?remdesivir. Appreciate ongoing nephrology management of this with dialysis CK WNL (3) Pneumonia due to 2019 novel coronavirus: Plan: Remdesivir holding due to LENNOX, elevated LFTs and bradycardia. Dexamethasone 6mg IV daily for 10 days Tocilizumab deferred due to elevated LFTs (4) Bacterial pneumonia: Plan: Cefepime given in ER. Finished course of ceftriaxone + azithromycin Procalcitonin downtrending (5) Elevated troponin: Plan: consistent with type II SD, supply-demand mismatch (6) Elevated d-dimer: Plan: - 4890 on admission, given her severity of illness this appears appropriate without a pulmonary embolism - US doppler negative for DVT - unable to perform CT for PE due to LENNOX (7) Elevated liver enzymes: Plan: - AST and ALT elevated - trend CMP - avoid Acetaminophen - likely related to acute COVID 19 infection (8) Hypokalemia: Plan: Resolved. (9) Metabolic acidosis: Plan: Secondary to LENNOX. Management per nephrology. (10) Fecal occult blood test positive: Plan: Melanic stools on second day of admission. Hemoglobin stable. On gastric prophylaxis with pantoprazole 40mg IV BID Plan: Dvt ppx: Heparin SQ, consider increasing dose give stability in Hgb Diet: heart healthy Dispo: ICU, COVID precautions, prognosis guarded Code: Full Admission and Anticipated Discharge Date Admission Date: October 10, 2020 Subjective Patient seen on CPAP. Not able to converse with me at all today. Garbled speech. Discussed care with Dr Rod - likely plan for intubation later today given worsening mentation Review of Systems Review of Systems: Unobtainable due to cognitive status Physical Exam Constitutional: WD/WN, vitals as above Eyes: + anicteric sclerae; normal pupil size Neck: trachea midline, no thyromegaly Respiratory: + retractions, + uses accessory muscles and + tachypneic; + not able to speak in complete sentence Auscultation: + diminished lung sounds (throughout); no crackles, no rales and no pleural rub Cardiovascular: Rate/Rhythm: regular rate and regular rhythm Extremities: normal capillary refill; no calf tenderness and no pedal edema Gastrointestinal (Abdomen): Percussion/Palpation: abdomen soft; abdomen nontender Psychiatric: Orientation: alert; + not oriented x 3 Results & Data Results & Data ([facility]) Vital Signs (Past 12 Hours) Vital Signs Temp Pulse Resp BP Pulse Ox 10/16/20 21:18 35.7 C L 54 L 119/51 L 88 L 10/16/20 20:18 35.7 C L 52 L 119/46 L 95 10/16/20 19:18 35.9 C L 54 L 94/45 L 95 10/16/20 19:05 52 L 20 93 PG Care Time/CCT Total # of Minutes Spent Total Time Spent with Patient: Total time spent is greater than 50% in coordination of care (as documented) at patient's floor/unit and/or counseling patient: Coding Level of Care Code 90958 Subseq Hosp Care Lvl 3 Diagnoses Acute respiratory failure with hypoxemia J96.01 Acute kidney injury N17.9 Pneumonia due to 2019 novel coronavirus U07.1; J12.82 Bacterial pneumonia J15.9 Elevated troponin R77.8 Elevated d-dimer R79.89 Elevated liver enzymes R74.8 Hypokalemia E87.6 Metabolic acidosis E87.2 Fecal occult blood test positive R19.5
--- NOTE | 2020-10-17 07:22 | XRay Report ---
KUB HISTORY: Status post placement of an enteric tube s/p OG placement COMPARISON: Chest radiograph of same day. FINDINGS: An enteric tube is present with distal tip projected over the lumbosacral junction, likely within the distal stomach. The lower abdomen is excluded from the owmtl-gk-haff. The bowel gas patter n appears nonobstructive. No urolith or opaque foreign body. No acute fracture. Cardiomegaly with melvin ateral pulmonary opacities. Right IJ central venous catheter is partially imaged. IMPRESSION: Distal tip of enteric tube projects over the distal stomach. ACT 112: Negative or not required by law. The above report was generated using voice recognition software. It may contain grammatical, syntax o r spelling errors. Electronically signed by: Tristan Haider M.D. 10/17/2020 7:21 AM
[2020-10-17] MEDS: guaiFENesin 600 MG TABCR PO SCH (08:11)
[2020-10-17] MEDS: fentaNYL DRIP 1,250 MCG/250 ML BAG IV SCH ×2 (08:11→20:21)
[2020-10-17] MEDS: CHOLECALCIFEROL 1,000 UNITS 25 MCG TAB PO SCH (08:12)
[2020-10-17] MEDS: dexAMETHasone 6 MG in SYRINGE 0 ML IV SCH (08:12)
[2020-10-17] MEDS: ZINC SULFATE 220 MG CAPSULE PO SCH (08:12)
[2020-10-17] MEDS: PANTOprazole 40 MG in SYRINGE 0 ML IV SCH (08:12)
--- NOTE | 2020-10-17 08:32 | Critical Care Progress Note ---
Date of Service October 17, 2020 Assessment & Plan (1) Pneumonia due to 2019 novel coronavirus: (2) Bacterial pneumonia: (3) Elevated liver enzymes: (4) Acute respiratory failure with hypoxemia: (5) Elevated troponin: (6) Acute kidney injury: (7) Fecal occult blood test positive: Plan: Impression: 75-year-old female admitted with COVID-19 pneumonia. Course has been complicated by acute delirium requiring intubation for airway protection as well as acute renal failure requiring initiation of hemodialysis. 24-hour events: Patient developed progressive delirium yesterday requiring intubation. Dialysis was held. She required initiation of pressors once intubated and sedated and pressor requirements have increased overnight. Recommendations: 1. Neurologic: Acute delirium. Unclear etiology but possibly secondary to Covid infection with superimposed metabolic abnormalities. She is currently sedated on propofol and fentanyl. Her exam previously was nonfocal so I think imaging and LP would be of limited utility at this point time. Continue supportive care 2. Cardiovascular: Hypotension: The patient appears to be adequately volume resuscitated. She is over 8 L positive since presentation. Continue pressors. She is already on dexamethasone which should cover for relative adrenal insufficiency so little utility in random cortisol. May need to check Echo, look at IVC collapse. 3. Pulmonary: Current vent settings are acceptable. Her oxygenation is adequate. Her gas exchange may improve with fluid removal. Continue ARDSnet ventilation strategy. 4. ID: Completed 5 days of azithromycin and Rocephin. Recieved Tocilizumab. Stopped remdesivir due to bradycardia - unlikely to help at this point as viral replication not an issue. 5. Renal: Likely ATN - multifactorial. Discussed with nephrology this morning. Patient is mildly acidotic but her electrolytes are acceptable. Unclear if she will tolerate conventional hemodialysis with her current pressor requirement. Plan to proceed with a trial of slow dialysis today with target of slow fluid removal and see how she does. If she fails to tolerate this with escalating pressor requirements, she may require transfer to a tertiary care facility for consideration of CRRT. 6. GI: Fecal occult blood positive but no evidence of sushila melena or hematochezia. Continue PPI. Trickle tube feeds 7. Endocrine: On dexamethasone. Glycemic control per protocol 8. Heme-onc: Decrease in hemoglobin and hematocrit overnight of unclear etiology. Recheck later today and if continues to drop, CT abd/pelvis. Overall prognosis is guarded. Mortality of 72-year-old patients with Covid pneumonia requiring mechanical ventilation and progressing to acute renal failure requiring dialysis is quite high. Family will be updated today. It would be appropriate to readdress her CODE STATUS as I think CPR in patients with these comorbid conditions is unlikely to be beneficial in improving her overall outcome. Palliative care consultation may be appropriate Patient discussed on multidisciplinary rounds and with critical care bedside nurse. Family will be updated today. A total of 50 minutes critical care time was spent in evaluation management and coordination of care of this critically ill patient with multiple life-threatening issues Admission and Anticipated Discharge Date Admission Date: October 10, 2020 Subjective Patient intubated and sedated. Review of Systems Review of Systems: All systems reviewed & are unremarkable except as noted in HPI & below Physical Exam Constitutional: + mechanically ventilated and + overweight Intubated and sedated Neck: trachea midline, no thyromegaly Respiratory: normal respiratory effort, lungs clear to auscultation Cardiovascular: RRR, no murmur, no edema Gastrointestinal (Abdomen): normal bowel sounds, soft, nontender, no hepatosplenomegaly Musculoskeletal: Extremities: extremities normal to inspection Skin: no rashes, warm and dry Neurologic: Nonfocal exam Lymphatic: no cervical lymphadenopathy Results & Data Results & Data ([facility]) Vital Signs (Past 12 Hours) Vital Signs Temp Pulse Resp BP Pulse Ox 10/17/20 08:01 63 20 90 10/17/20 06:18 36.7 C 62 131/46 L 90 10/17/20 05:18 36.6 C 58 L 130/50 L 90 10/17/20 04:18 36.5 C 57 L 108/41 L 89 L 10/17/20 03:18 36.3 C L 55 L 132/46 L 92 10/17/20 03:15 57 L 21 91 10/17/20 02:18 36.2 C L 54 L 109/45 L 92 10/17/20 01:18 36.0 C L 54 L 113/44 L 92 10/17/20 00:18 35.8 C L 53 L 125/49 L 92 10/16/20 23:45 53 L 20 92 10/16/20 23:18 35.7 C L 53 L 108/51 L 92 10/16/20 22:18 35.6 C L 53 L 121/48 L 91 10/16/20 21:18 35.7 C L 54 L 119/51 L 88 L Critical Care Results & Data Vital Signs (Past 12 Hours) Vital Signs Temp Pulse Resp BP Pulse Ox 10/17/20 08:01 63 20 90 10/17/20 06:18 36.7 C 62 131/46 L 90 10/17/20 05:18 36.6 C 58 L 130/50 L 90 10/17/20 04:18 36.5 C 57 L 108/41 L 89 L 10/17/20 03:18 36.3 C L 55 L 132/46 L 92 10/17/20 03:15 57 L 21 91 10/17/20 02:18 36.2 C L 54 L 109/45 L 92 10/17/20 01:18 36.0 C L 54 L 113/44 L 92 10/17/20 00:18 35.8 C L 53 L 125/49 L 92 10/16/20 23:45 53 L 20 92 10/16/20 23:18 35.7 C L 53 L 108/51 L 92 10/16/20 22:18 35.6 C L 53 L 121/48 L 91 10/16/20 21:18 35.7 C L 54 L 119/51 L 88 L Lab & Micro Results (Past 24 Hours) RBC 3.32 M/uL (4.2-5.4) L 10/17/20 WBC 16.29 K/uL (4.8-10.8) H 10/17/20 Hgb 9.3 g/dL (12.0-16.0) L 10/17/20 Hct 27.7 % (37-47) L 10/17/20 MCV 83.4 fL (80-100) 10/17/20 MCH 28.0 pg (25-34) 10/17/20 MCHC 33.6 g/dL (32-36) 10/17/20 RDW Standard Deviation 50.9 fL (36.4-46.3) H 10/17/20 RDW Coefficient of Variation 16.7 % (11.5-14.5) H 10/17/20 Plt Count 168 K/uL (130-400) 10/17/20 MPV 11.3 fL (7.4-10.4) H 10/17/20 Nucleated Red Blood Cells % (auto) 0.8 % 10/17/20 Nucleated RBC Absolute Count (auto) 0.12 K/uL (0-0) H 10/17/20 Neutrophils (%) (Auto) 90.2 % 10/17/20 Lymphocytes (%) (Auto) 5.5 % 10/17/20 Monocytes # (Auto) 0.19 K/uL (0.11-0.59) 10/17/20 Eosinophils # (Auto) 0.07 K/uL (0-0.5) 10/17/20 Immature Granulocyte % (Auto) 2.6 % 10/17/20 Neutrophils # (Auto) 14.71 K/uL (1.4-6.5) H 10/17/20 Lymphocytes # (Auto) 0.89 K/uL (1.2-3.4) L 10/17/20 Monocytes # (Auto) 0.19 K/uL (0.11-0.59) 10/17/20 Eosinophils # (Auto) 0.07 K/uL (0-0.5) 10/17/20 Basophils # (Auto) 0.01 K/uL (0-0.2) 10/17/20 Immature Granulocyte # (Auto) 0.42 K/uL (0.00-0.02) H 10/17/20 Na 140 mmol/L (136-145) 10/17/20 K 4.9 mmol/L (3.5-5.1) 10/17/20 Cl 108 mmol/L (98-107) H 10/17/20 CO2 22 mmol/L (21-32) 10/17/20 Anion Gap 10.0 (3-11) 10/17/20 BUN 88 mg/dl (7-18) H 10/17/20 Creatinine 6.32 mg/dl (0.6-1.2) H* 10/17/20 Estimated GFR ( Amer) 7.0 ml/min 10/17/20 Estimated GFR (Non-Af Amer) 6.0 ml/min 10/17/20 BUN/Creatinine Ratio 13.9 (10-20) 10/17/20 Glu 109 mg/dl (70-99) H 10/17/20 Ca 8.0 mg/dl (8.5-10.1) L 10/17/20 Phosphorus Level 6.6 mg/dl (2.5-4.9) H 10/17/20 Total Bilirubin 0.9 mg/dl (0.2-1) 10/17/20 Direct Bilirubin 0.1 mg/dl (0-0.2) 10/17/20 AST 95 U/L (15-37) H 10/17/20 ALT 121 U/L (12-78) H 10/17/20 Alkaline Phosphatase 148 U/L (45-117) H 10/17/20 TP 5.4 gm/dl (6.4-8.2) L 10/17/20 Albumin 2.0 gm/dl (3.4-5.0) L 10/17/20 Mg 2.7 mg/dl (1.8-2.4) H 10/17/20 04:27 10/17/20 Calcium Level 8.0 mg/dl (8.5-10.1) L 10/17/20 04:27 10/17/20 Brandon Test NA 10/17/20 05:08 10/17/20 Microbiology 10/15/20 17:00 Gram Stain - Final Sputum, Expectorated Sputum Culture - Preliminary Pin-point growth present, reincubating. Diagnostic Findings (Past 24 Hours) Chest X-Ray 10/16/20 07:00 SINGLE VIEW CHEST CLINICAL HISTORY: Respiratory failure. Covid. FINDINGS: An AP, portable, semierect chest radiograph is compared to study dated 10/15/2020. A right internal jugular central venous catheter has been placed. The tip projects over the SVC. An endotracheal tube has been placed. The tip proj ects approximately 4 cm above the sherie. The cardiomediastinal silhouette is unremarkable noting atherosclerotic calcification of the thoracic aorta. Multifocal airspace consolidation is seen throughout both lungs. No large pleural effusion or pneumothorax is seen. The skeletal structures are osteopenic. The bony thorax is grossly intact. IMPRESSION: 1. An endotracheal tube and a right internal jugular central venous catheter have been placed as above. 2. No pneumothorax is seen post procedure. 3. Multifocal airspace consolidation has not significantly changed from yesterday and is consistent with the reported history of viral pneumonia. Radiographic follow-up to resolution is recommended. ACT 112: Negative or not required by law. Electronically signed by: Raf Mckeon M.D. 10/16/2020 12:03 PM KUB X-Ray 10/17/20 07:00 KUB HISTORY: Status post placement of an enteric tube s/p OG placement COMPARISON: Chest radiograph of same day. FINDINGS: An enteric tube is present with distal tip projected over the lumbosacral junction, likely within the distal stomach. The lower abdomen is excluded from the vejlt-ah-tsae. The bowel gas pattern appears nonobstructive. No urolith or opaque foreign body. No acute fracture. Cardiomegaly with bilateral pulmonary opacities. Right IJ central venous catheter is partially imaged. IMPRESSION: Distal tip of enteric tube projects over the distal stomach. ACT 112: Negative or not required by law. The above report was generated using voice recognition software. It may contain grammatical, syntax or spelling errors. Electronically signed by: Tristan Haider M.D. 10/17/2020 7:21 AM I & O Totals 24 Hours 10/16/20 10/17/20 10/18/20 06:59 06:59 06:59 Intake Total 802.5 / 802.5 575.738 / 575.738 282.889 / 282.889 Output Total 46 / 46 305 / 305 Balance 756.5 / 756.5 270.738 / 270.738 282.889 / 282.889 Cumulative 10/10/20 18:21 thru 10/17/20 08:11 Intake Total 70969.811 Output Total 3340 Balance 8725.811 RT Ventilator Mngmt (Last Documented) Ventilator Ordered Settings Ventilator Support Mode Assist Control 10/17/20 08:01 Respiratory Rate 20 10/17/20 08:01 Ventilator Tidal Volume 460 10/17/20 08:01 Setting Minute Ventilation 8.6 10/17/20 08:01 Positive End Expiratory 8 10/17/20 08:01 Pressure Fraction of Inspired Oxygen 45 10/17/20 08:01 Machine Comment Titrated FiO2 to 45% 10/16/20 19:05 Ventilator - PT Measurements Respiratory Rate 20 Exhaled Tidal Volume 476 Minute Ventilation 8.6 Peak Inspiratory Airway 25 Pressure Mean Airway Pressure 13 Plateau Pressure 24.5 Respiratory Cycle Inspiratory: 1:3.2 Expiratory Ratio Inspiratory Phase Time 0.8 End-Tidal CO2 24 Static Lung Compliance 28.85 Dynamic Lung Compliance 28.00 Normal Static Lung Compliance 47.00 Coding Level of Care Code Critical Care 1st 30-74 mins Diagnoses Pneumonia due to 2019 novel coronavirus U07.1; J12.82 Bacterial pneumonia J15.9 Elevated liver enzymes R74.8 Acute respiratory failure with hypoxemia J96.01 Elevated troponin R77.8 Acute kidney injury N17.9 Fecal occult blood test positive R19.5 Time Spent (min) 50
[2020-10-17] MEDS ORDERED: HEPARIN SOD (PORCINE) 1000 UNIT/ML IV ONE (08:40)
[2020-10-17] MEDS ORDERED: SODIUM CHLORIDE 0.9% 1000ML 1,000 ML IV PRN (08:40)
[2020-10-17] MEDS: INSULIN GLARGINE SOLOSTAR 100 UNITS/ML 3 ML PEN SC SCH ×2 (08:52→18:43)
--- NOTE | 2020-10-17 08:52 | Nephrology Progress Note ---
Date of Service October 17, 2020 Assessment & Plan (1) Acute kidney injury: Plan: * Baseline creatinine <1 mg/dL * LENNOX c/w ATN * US without obstruction * Urinalysis 10/15 negative for casts * 1st HD 10/15. Clotted dialyzer x2. ICU team reports patient on SQ heparin and low dose heparin can be used w/ HD * Will provide HD this morning for correction of azotemia and UF. Plan 4 hours, 4K bath, low dose heparin, attempt 3 L UF. Orders have been placed in EMR and HD RN notified (2) Pneumonia due to 2019 novel coronavirus: Plan: * Received Toclizumab 10/13/20 * Remains on Dexamethasone 6 mg IV daily * Remdesivir held due to LENNOX * Prognosis guarded - COVID pneumonia requiring mechanical ventilation, pressor support (Levophed 7 mcg/min), LENNOX requiring HD (3) Hypertension: Plan: * SBP has been labile 108 - 132 mm Hg * Now on Levophed gtt Admission and Anticipated Discharge Date Admission Date: October 10, 2020 Subjective Mrs. Suero remains on respiratory isolation due to COVID pneumonia. She required intubation and mechanical ventilation to protect airway. This morning she is sedated and on Levophed for pressor support. UO 305 cc last 24 hours. Patient is net 8L volume positive. Plan of care discussed w/ ICU team this morning. Review of Systems Review of Systems: Unobtainable due to endotracheal tube Physical Exam Physical Exam: withheld due to COVID + status Results & Data ([facility]) Vital Signs (Past 12 Hours) Vital Signs Temp Pulse Resp BP Pulse Ox 10/17/20 08:01 63 20 90 10/17/20 06:18 36.7 C 62 131/46 L 90 10/17/20 05:18 36.6 C 58 L 130/50 L 90 10/17/20 04:18 36.5 C 57 L 108/41 L 89 L 10/17/20 03:18 36.3 C L 55 L 132/46 L 92 10/17/20 03:15 57 L 21 91 10/17/20 02:18 36.2 C L 54 L 109/45 L 92 10/17/20 01:18 36.0 C L 54 L 113/44 L 92 10/17/20 00:18 35.8 C L 53 L 125/49 L 92 10/16/20 23:45 53 L 20 92 10/16/20 23:18 35.7 C L 53 L 108/51 L 92 10/16/20 22:18 35.6 C L 53 L 121/48 L 91 10/16/20 21:18 35.7 C L 54 L 119/51 L 88 L Laboratory Results Laboratory Tests 10/16/20 10/17/20 10/17/20 04:59 04:27 04:27 WBC 16.29 H Hgb 9.3 L Hct 27.7 L Plt Count 168 Sodium 140 Potassium 4.9 D Chloride 108 H Carbon Dioxide 22 BUN 88 H Creatinine 6.32 H* D Glucose 109 H AST 213 H 95 H ALT 179 H 121 H Alkaline Phosphatase 148 H Ammonia 10/17/20 04:27 WBC Hgb Hct Plt Count Sodium Potassium Chloride Carbon Dioxide BUN Creatinine Glucose AST ALT Alkaline Phosphatase Ammonia 22.0 PG Care Time/CCT Total # of Minutes Spent Total Time Spent with Patient: Total time spent is greater than 50% in coordination of care (as documented) at patient's floor/unit and/or counseling patient: Coding Level of Care Code 76476 Subseq Hosp Care Lvl 3 Diagnoses Acute kidney injury N17.9 Pneumonia due to 2019 novel coronavirus U07.1; J12.82 Hypertension I10
[2020-10-17] MEDS: NOREPINEPHRINE/D5W 8 MG/508 ML BAG IV SCH ×2 (08:59→11:33)
[2020-10-17] MEDS ORDERED: INSULIN GLARGINE SOLOSTAR 100 UNITS/ML 3 ML PEN SC SCH (09:00)
[2020-10-17] MEDS ORDERED: EPOETIN ALFA 10,000 UNITS/ML VIAL IV ONE (09:00)
[2020-10-17 09:05] LABS: Hepatitis B Surface Ab Quant 77.28 mIU/mL (>or=10mIU/mL Immune); Hepatitis B Surface Antibody Immune
[2020-10-17 09:33] LABS: Hepatitis B Surf Ag Rflx Conf Neg (Neg)
--- NOTE | 2020-10-17 11:07 | XRay Report ---
XR chest 1V portable CLINICAL HISTORY: covid COMPARISON STUDY: October 16, 2020 FINDINGS: No pneumothorax. No pleural effusion. Redemonstration of the mixed reticular and airspace opacities throughout bilateral lungs with air bro nchograms at the left retrocardiac region is not significantly changed since prior. Cardiomediastinal silhouette is stable. Aorta is calcified. Pulmonary vasculature is obscured.. Osseous structures: unremarkable Tip of endotracheal tube is seen projecting 2.3 cm above sherie. Interval placement of the gastric tube, tip and fenestrated side-port are outside of [id number] an d below level of hemidiaphragm. Stable position of right-sided central venous catheter. Multiple EKG wires are seen slightly limiting evaluation. IMPRESSION: 1. Stable multifocal infiltrates/opacities. 2. Tip of endotracheal tube is 2.3 cm above sherie. 3. Interval placement of the gastric tube, tip and fenestrated side-port outside of [id number] an d below level of hemidiaphragm. ACT 112: Negative or not required by law. The above report was generated using voice recognition software. It may contain grammatical, syntax o r spelling errors. Electronically signed by: Ainsley Pulido DO 10/17/2020 11:05 AM
--- NOTE | 2020-10-17 11:22 | Pharmacy Report ---
Pharmacy Glycemic Short Note 2 - Date of Service October 17, 2020 - Glycemic Short BSG Results (Last 24 hours): 10/16/20 10/16/20 10/17/20 12:29 16:42 00:31 Glucose POC Glucose 96 122 H POC Glucose (other) 125 H 10/17/20 10/17/20 04:27 06:43 Glucose 109 H POC Glucose POC Glucose (other) 114 H OUTPATIENT ANTIDIABETIC REGIMEN: * N/a * HbA1c = 6.5% (10/14/20) ASSESSMENT: 10/17: * Patient received 10 units of Lantus yesterday AM and no Novolog. BSG's ranged 88-125 mg/dL. * Patient is critically ill in ICU, intubated, and on pressors. BSG's ranging 140-180 mg/dL would be more appropriate * Will decrease Lantus and split BID based on BSG 10/16: * Patient received a total of 15 units of insulin yesterday (12 units basal + 3 units bolus) * BSGs well controlled: [id number] mg/dL * Fasting BSG was 88 mg/dL this AM * May be secondary to receiving HD yesterday * Regardless, Fastings have been below goal for a few days so will decrease basal 20% today 10/14: * Patient continues on 6 mg of dexamethasone, dextrose discontinued, SCr continues to increase * Patient's BSGs did trend down overnight, fasting 102 mg/dL in the morning, will continue current lantus dosing * Slightly loosened carb ratio between weight based stress of 2 and 3, will tighten if BSGs go upward again. * A1c indicates pre-existing diabetes 10/13: * Patient admitted to ICU with COVID-19, receiving 10 mg of dexamethasone (decrease to 6 mg tomorrow) daily, unknown A1c, no previous documented diagnosis of diabetes, BSGs elevated likely secondary to dexamethasone, patient also on D51/2 NS @ 40 ml/hr, LENNOX today 0.94-->2.85-->3.18 * Started weight based stress of 3 novolog, will dose lantus on scale up to weight based stress of 3, may need to utilize NPH in morning if BSGs remain elevated PLAN FOR INPATIENT GLYCEMIC CONTROL: * Basal insulin - decreased * Lantus 3-5 units SC BID, depending on BSG * Bolus insulin * NovoLog per scale ACHS or Q6hrs while NPO * Goal Range: Low 110 mg/dL - High 140 mg/dL * Correction Factor: 25 mg/dL/unit * Nutritional / Prandial insulin per carb ratio of 1 unit per 10 grams CHO consumed PLAN FOR DISCHARGE: * HbA1c was 6.5% from this admission indicating patient has newly diagnosed Type 2 Diabetes. * Could consider dietary and lifestyle changes for now. If renal function improves prior to discharge, then consider Metformin.
[2020-10-17] MEDS: ASPIRIN 81 MG CHEW NG SCH (11:32)
[2020-10-17] MEDS: ESCITALOPRAM OXALATE ORAL SOLN 20 MG/20 ML UDP PO SCH (11:32)
--- NOTE | 2020-10-17 11:40 | Palliative Care Consultation ---
Date of Consultation October 17, 2020 Assessment & Plan (1) Palliative care encounter: This is a 75 year old female who presented to the [facility] with shortness of breath. She was diagnosed with Covid-19. She was unvaccinated. In the Emergency Room, she was given Remdesivir, steroids, Azithromycin, and Rocephin. She has declined over the past 48 hours and required intubated and vasoactive pressor support as of yesterday. Additional PMH includes: HLD and anxiety. 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 I discussed the patients plan of care with Dr. Suarez and the patients RN, Kassy. The patient is intubated and sedated and on pressor support. The patient's creatinine was 6.32 and emergent hemodialysis was initiated; however, due to her hypotension, has not been able to tolerate the hemodialysis larger volume removal of blood very well. I had multiple conversations with family members including her MARISELA and her twin sister who is also a nurse in [place], [place] named Jess. The patient also has a nephew who is a EXTRUSION UTILITY WORKER in [place]. 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 The nephew suggested ECMO, which after discussing with Dr. Suarez would not be an option for her as she is outside the treatment age of [facility]. I expressed that we can evolve this conversation over time pending how she is progressing. All family members were thankful for the conversation. The above was discussed with Dr. Suarez and nursing. Please call palliative medicine for further assistance. We will follow on the periphery. (2) Acute respiratory failure with hypoxemia: (3) Pneumonia due to 2019 novel coronavirus: (4) Anxiety: History of Present Illness Reason for Consultation: Goals of Care Requesting Physician: Dr. Avitia Attending Physician: Manjit Caballero History of Present Illness This is a 75 year old female who presented to the [facility] with shortness of breath. She was diagnosed with Covid-19. She was unvaccinated. In the Emergency Room, she was given Remdesivir, steroids, Azithromycin, and Rocephin. She has declined over the past 48 hours and required intubated and vasoactive pressor support as of yesterday. Additional PMH includes: HLD and anxiety. 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 Please see A/P for further details. Thanks for involving Palliative Medicine with this individual. Allergies Allergy/AdvReac Type Severity Reaction Status Date / Time Sulfa (Sulfonamide Allergy Mild itchy and Verified 10/10/20 20:08 Antibiotics) feeling drained Home Medications Medication Instructions Recorded Confirmed Type Glucosamine Chondroitin PLUS 200 mcg PO QDL 06/16/18 10/10/20 History acetaminophen 325 mg tablet 325 - 650 mg PO Q6H PRN 06/16/18 10/10/20 History (Tylenol) alendronate 70 mg tablet (Fosamax) 1 tab PO WK 06/16/18 10/10/20 History ascorbic acid (vitamin C) 500 mg 500 mg PO QDL 06/16/18 10/10/20 History tablet (Vitamin C) aspirin 81 mg tablet,delayed 81 mg PO QDL 06/16/18 10/10/20 History release atorvastatin 10 mg tablet 10 mg PO HS 06/16/18 10/10/20 History biotin 1 mg tablet 1 mg PO QAM 06/16/18 10/10/20 History calcium carbonate 600 mg (1,500 2 tab PO BID 06/16/18 10/10/20 History mg)-vitamin D3 400 unit tablet (Calcium 600 + D(3)) ibuprofen 200 mg tablet 400 mg PO QAM 06/16/18 10/10/20 History lutein 20 mg tablet 20 mg PO QDL 06/16/18 10/10/20 History magnesium oxide 250 mg PO QDL 06/16/18 10/10/20 History omega 3 350 mg-dha 235 mg-epa 90 3 cap PO QAM 06/16/18 10/10/20 History mg-fish oil 597 mg capsule,delay rel ([place]-3) pediatric multivit no.43 with iron 1 tab PO QAM 06/16/18 10/10/20 History fumarate 18 mg iron chewable tablet (Flintstones Complete (iron)) vitamin E 400 unit capsule 400 unit PO QDL 06/16/18 10/10/20 History escitalopram oxalate 20 mg tablet 20 mg PO DAILY 10/10/20 10/10/20 History Patient History Medical History (Updated 10/17/20 @ 11:39 by JHON Garcia) Anxiety Anxiety Hyperlipidemia Palliative care encounter Surgical History History of appendectomy with right salpingo-oophorectomy History of colonoscopy History of esophagogastroduodenoscopy (EGD) History of right salpingo-oophorectomy History of umbilical hernia repair had left tubal ligation at same time Status post tubal ligation left with hernia repair Family History Other No family history of adverse response to anesthesia Social History Smoking Status: Former smoker Second Hand Exposure: No; Hx Alcohol Use: Yes Alcohol type: wine Hx Substance Use: No Preferred Language: Cameroonian Communication Ability: Effective Construction Equipment Overhauler Required: No Beliefs That Will Affect Care: None marital status: Current Living Situation: Spouse Feels Safe at Home: Yes Assistive Devices: Oxygen - Continuous Review of Systems Review of Systems: [place] System Assessment Scale: Pain: 0/3 AD SOB: 0/3 AD Anxiety: 0/3 AD Palliative Performance Scale: 30% Physical Exam Physical Exam: Physical Examination deferred due to covid-19 Window assessment performed: Patient appears comfortable. Patient is sedated, breathing assist with the ventilator. Patient is sinus rhythm or bradycardic on the heart monitor. Results & Data ([facility]) Vital Signs (Past 12 Hours) Vital Signs Temp Pulse Pulse Resp BP BP Pulse Ox 10/17/20 11:29 63 19 92 10/17/20 11:18 67 102/43 L 10/17/20 11:03 63 135/48 L 10/17/20 10:48 37.3 C 67 10/17/20 10:30 37.2 C 67 18 133/48 L 10/17/20 10:18 37.2 C 64 134/47 L 90 10/17/20 09:30 67 17 142/50 H 10/17/20 09:18 36.9 C 68 145/48 H 91 10/17/20 08:30 100/39 L 10/17/20 08:18 36.9 C 61 114/45 L 91 08/09/21 08:01 63 20 90 10/17/20 08:00 61 99/40 L 10/17/20 07:18 36.8 C 58 L 127/43 L 90 10/17/20 06:18 36.7 C 62 131/46 L 90 10/17/20 05:18 36.6 C 58 L 130/50 L 90 10/17/20 04:18 36.5 C 57 L 108/41 L 89 L 10/17/20 03:18 36.3 C L 55 L 132/46 L 92 10/17/20 03:15 57 L 21 91 10/17/20 02:18 36.2 C L 54 L 109/45 L 92 10/17/20 01:18 36.0 C L 54 L 113/44 L 92 10/17/20 00:18 35.8 C L 53 L 125/49 L 92 10/16/20 23:45 53 L 20 92 PG Care Time/CCT Total # of Minutes Spent Total Time Spent with Patient: Total time spent is greater than 50% in coordination of care (as documented) at patient's floor/unit and/or counseling patient: 100 minutes with > 50% of that time spent assessing the patient, discussing goals of care with multiple family members and collaborating with IDT Coding Level of Care Code 37018 Initial Inpt Care Lvl 3 Diagnoses Palliative care encounter Z51.5 Acute respiratory failure with hypoxemia J96.01 Pneumonia due to 2019 novel coronavirus U07.1; J12.82 Anxiety F41.9 Time Spent (min) 100
[2020-10-17] MEDS ORDERED: PEPTAMEN INTENSE VHP 1.0 CAL 1,000 ML BAG OG SCH ×2 (12:30→12:56)
[2020-10-17] MEDS: HEPARIN SOD (PORCINE) 1000 UNIT/ML IV SCH (14:04)
[2020-10-17] MEDS: TUBE FEEDING WATER FLUSH GT SCH ×3 (15:26→19:39)
[2020-10-17] MEDS: PEPTAMEN INTENSE VHP 1.0 CAL 1,000 ML BAG OG SCH (15:26)
[2020-10-17 16:33] LABS: Hematocrit (blood only) 29.8 % (37-47); Hemoglobin 9.9 g/dL (12.0-16.0); Mean Corpuscular Hemoglobin 28.2 pg (25-34); Mean Corpuscular Hgb Conc 33.2 g/dL (32-36); Mean Corpuscular Volume 84.9 fL (80-100); Nucleated RBC # (auto) 0.45 K/uL (0-0); Nucleated RBC % (auto) 2.2 %; Platelet Count 165 K/uL (130-400); RDW Standard Deviation 51.8 fL (36.4-46.3); Red Blood Count 3.51 M/uL (4.2-5.4); White Blood Count 20.73 K/uL (4.8-10.8)
[2020-10-17 16:59] LABS: Basophils # (auto) 0.05 K/uL (0-0.2); Basophils % (auto) 0.2 %; Echinocytes 1+; Eosinophils # (auto) 0.12 K/uL (0-0.5); Eosinophils % (auto) 0.6 %; Immature Granulocytes # (auto) 0.94 K/uL (0.00-0.02); Immature Granulocytes % (auto) 4.5 %; Lymphocytes # (auto) 0.76 K/uL (1.2-3.4); Lymphocytes % (auto) 3.7 %; Monocytes # (auto) 0.14 K/uL (0.11-0.59); Monocytes % (auto) 0.7 %; Neutrophils # (auto) 18.72 K/uL (1.4-6.5); Neutrophils % (auto) 90.3 %; Schistocytes 1+
--- NOTE | 2020-10-17 17:44 | Hospitalist Progress Note ---
Date of Service October 17, 2020 Assessment & Plan (1) Acute respiratory failure with hypoxemia: Plan: 2nd to severe COVID-19 pneumonia. Cannot rule out component of bacterial superinfection s/p IV antibiotics for such. Cannot rule out volume overload component from her acute renal failure. s/p intubation with mechanical ventilation initiated 10/16/20. Defer management to ICU team. (2) Severe sepsis: Plan: 2nd to COVID-19 pneumonia. Now with hypotension requiring pressors. (3) Acute kidney injury: Plan: ATN due to COVID-19 (and/or remdesivir) with resulting severe acute renal failure. Temporary HD catheter placed 10/15. Attempts at HD then unsuccessful. Attempts again at HD today were limited - only 500cc of fluid removed. Need for CRRT? Defer that decision to nephrology and off track betting manager. Baseline Cr 0.9. Now 6.3. Appreciate nephrology assistance. (4) Pneumonia due to 2019 novel coronavirus: Plan: Critically ill due to such. Day #7/10 of dexamethasone 6mg IV daily. Remdesivir - first dose given on 10/10. Received dose #2 on 10/11. Due to development of LENNOX and transaminitis the remdesivir was stopped after 2nd dose. s/p Tocilizumab - 10/13/20. s/p full 5-day course of rocephin/zithromax. s/p intubation on 10/16/20 with mechanical ventilation. (5) Bacterial pneumonia: Plan: s/p ceftriaxone + azithromycin x 5 days with downtrending procal. (6) Hypotension: Plan: 2nd to severe sepsis, COVID-19, medications (propofol), etc. Continue levophed. (7) Elevated troponin: Plan: Peak trop 0.154. 2nd to myocardial demand ischemia. (8) Elevated d-dimer: Plan: 4890 on admission (10/10/20). LE dopplers negative for DVT b/l. Unable to perform CT to r/o PE due to LENNOX. (9) Elevated liver enzymes: Plan: transaminitis 2nd to COVID-19. LFTs downtrending. (10) Hypokalemia: Plan: Resolved (11) Metabolic acidosis: Plan: 2nd to acute renal failure and severe sepsis. (12) Fecal occult blood test positive: Plan: Melanic stools on second day of admission. Cont PPI for GI prophylaxis. Hemoglobin today 9.9, about 1gm drop from 10/16/20. Follow. Plan: remains full code palliative care consult completed family feels patient would want all measures taken to preserve life including CRRT, transfer to tertiary care, trach/PEG, etc. appreciate palliative care input Admission and Anticipated Discharge Date Admission Date: October 10, 2020 Subjective events of last 24 hours noted. discussed patient care with the patient's bedside nurse as well as Dr Suarez, off track betting manager. Ms Suero was electively intubated last evening due to worsening mentation in the setting of acute renal failure and acute hypoxic respiratory failure. has continued to require levophed for BP support. during HD today only 500cc of fluid was removed as HD was terminated early due to BP instability. palliative care has been consulted. Review of Systems Review of Systems: ROS not obtained - patient intubated, and bedside visit not performed Physical Exam Physical Exam: bedside visit and physical exam NOT performed Results & Data Results & Data ([facility]) Vital Signs (Past 12 Hours) Vital Signs Temp Pulse Pulse Resp BP BP BP 10/17/20 17:00 36.9 C 56 L 104/57 L 10/17/20 16:00 36.6 C 58 L 133/52 L 10/17/20 15:44 36.5 C 62 143/46 H 10/17/20 15:29 36.5 C 61 26 H 126/47 L 10/17/20 15:20 36.6 C 61 121/74 10/17/20 15:07 36.6 C 61 121/74 10/17/20 14:59 36.6 C 56 L 116/49 L 10/17/20 14:45 52 L 120/42 L 10/17/20 14:44 36.6 C 52 L 120/42 L 10/17/20 14:30 55 L 117/47 L 10/17/20 14:29 36.6 C 56 L 117/47 L 10/17/20 14:15 53 L 124/48 L 10/17/20 14:14 36.6 C 55 L 124/48 L 10/17/20 14:00 55 L 117/46 L 10/17/20 13:49 36.6 C 56 L 119/59 L 10/17/20 13:48 57 L 119/59 L 10/17/20 13:34 36.7 C 55 L 128/57 L 10/17/20 13:33 55 L 125/55 L 10/17/20 13:19 36.7 C 58 L 133/58 L 10/17/20 13:18 56 L 137/56 L 10/17/20 13:04 36.7 C 56 L 144/55 H 10/17/20 13:03 59 L 125/58 L 10/17/20 12:49 36.8 C 56 L 138/53 L 10/17/20 12:48 60 131/49 L 10/17/20 12:34 37.0 C 58 L 112/47 L 10/17/20 12:33 58 L 91/45 L 10/17/20 12:20 37.1 C 55 L 130/43 L 10/17/20 12:18 59 L 85/50 L 10/17/20 12:04 37.1 C 65 108/47 L 10/17/20 12:03 58 L 121/52 L 10/17/20 11:49 37.2 C 58 L 126/52 L 10/17/20 11:48 59 L 126/52 L 10/17/20 11:33 63 128/49 L 10/17/20 11:30 37.3 C 67 125/48 L 10/17/20 11:29 63 19 10/17/20 11:19 37.4 C 61 102/43 L 10/17/20 11:18 67 102/43 L 10/17/20 11:03 37.3 C 63 135/48 L 10/17/20 10:48 37.3 C 66 67 138/45 L 10/17/20 10:30 37.2 C 67 18 133/48 L 10/17/20 10:18 37.2 C 64 134/47 L 10/17/20 09:30 67 17 142/50 H 10/17/20 09:18 36.9 C 68 145/48 H 10/17/20 08:30 100/39 L 10/17/20 08:18 36.9 C 61 114/45 L 10/17/20 08:01 63 20 10/17/20 08:00 61 99/40 L 10/17/20 07:18 36.8 C 58 L 127/43 L 10/17/20 06:18 36.7 C 62 131/46 L Pulse Ox 10/17/20 17:00 91 10/17/20 16:00 100 10/17/20 15:44 91 10/17/20 15:29 94 10/17/20 15:20 10/17/20 15:07 95 10/17/20 14:59 97 10/17/20 14:45 10/17/20 14:44 94 10/17/20 14:30 10/17/20 14:29 94 10/17/20 14:15 10/17/20 14:14 97 10/17/20 14:00 10/17/20 13:49 94 10/17/20 13:48 10/17/20 13:34 96 10/17/20 13:33 10/17/20 13:19 95 10/17/20 13:18 10/17/20 13:04 95 10/17/20 13:03 10/17/20 12:49 96 10/17/20 12:48 10/17/20 12:34 97 10/17/20 12:33 10/17/20 12:20 95 10/17/20 12:18 10/17/20 12:04 96 10/17/20 12:03 10/17/20 11:49 95 10/17/20 11:48 10/17/20 11:33 10/17/20 11:30 95 10/17/20 11:29 92 10/17/20 11:19 92 10/17/20 11:18 10/17/20 11:03 91 10/17/20 10:48 91 10/17/20 10:30 10/17/20 10:18 90 10/17/20 09:30 10/17/20 09:18 91 10/17/20 08:30 10/17/20 08:18 91 10/17/20 08:01 90 10/17/20 08:00 10/17/20 07:18 90 10/17/20 06:18 90 Laboratory Results Laboratory Results - last 24 hr 10/15/20 10/17/20 10/17/20 12:12 00:31 04:27 WBC 16.29 H RBC 3.32 L Hgb 9.3 L POC Hgb Hct 27.7 L POC Hct MCV 83.4 MCH 28.0 MCHC 33.6 RDW Std Deviation 50.9 H RDW Coeff of Roxanna 16.7 H Plt Count 168 MPV 11.3 H Immature Gran % (Auto) 2.6 Neut % (Auto) 90.2 Lymph % (Auto) 5.5 Perry % (Auto) 1.2 Eos % (Auto) 0.4 Baso % (Auto) 0.1 Neut # (Auto) 14.71 H Lymph # (Auto) 0.89 L Perry # (Auto) 0.19 Eos # (Auto) 0.07 Baso # (Auto) 0.01 Immature Gran # (Auto) 0.42 H Absolute Nucleated RBC 0.12 H Nucleated RBC % (auto) 0.8 Echinocytes Schistocytes Sample Site POC pH POC pCO2 POC pO2 POC HCO3 POC Total CO2 POC Base Excess ABG pH (Temp Correct) ABG pCO2 (Temp Corrct POC ABG pO2 at Pt Temp POC ABG O2 Sat Brandon Test O2 Delivery Device POC O2 Rate Minute Ventilation POC FiO2 Tidal Volume PEEP POC Sodium Sodium POC Potassium Potassium Chloride Carbon Dioxide Anion Gap BUN Creatinine Est Cr Clr Drug Dosing Est GFR ( Amer) Est GFR (Non-Af Amer) BUN/Creatinine Ratio Glucose POC Glucose (other) 125 H Calcium Phosphorus Magnesium Total Bilirubin Direct Bilirubin AST ALT Alkaline Phosphatase Ammonia Total Protein Albumin Hep Bs Antigen Neg Hep Bs Antibody Immune Hep Bs Antibody, Quant 77.28 10/17/20 10/17/20 10/17/20 04:27 04:27 05:08 WBC RBC Hgb POC Hgb 9.5 L Hct POC Hct 28 L MCV MCH MCHC RDW Std Deviation RDW Coeff of Roxanna Plt Count MPV Immature Gran % (Auto) Neut % (Auto) Lymph % (Auto) Perry % (Auto) Eos % (Auto) Baso % (Auto) Neut # (Auto) Lymph # (Auto) Perry # (Auto) Eos # (Auto) Baso # (Auto) Immature Gran # (Auto) Absolute Nucleated RBC Nucleated RBC % (auto) Echinocytes Schistocytes Sample Site Art Line POC pH 7.34 L POC pCO2 36 POC pO2 63 L POC HCO3 19 POC Total CO2 20 L POC Base Excess -7.0 ABG pH (Temp Correct) 7.345 L ABG pCO2 (Temp Corrct 35 POC ABG pO2 at Pt Temp 61 POC ABG O2 Sat 91.0 Brandon Test NA O2 Delivery Device Ventilator POC O2 Rate 20 Minute Ventilation 6.8 POC FiO2 45 Tidal Volume 460 PEEP 8 POC Sodium 138 Sodium 140 POC Potassium 4.8 Potassium 4.9 D Chloride 108 H Carbon Dioxide 22 Anion Gap 10.0 BUN 88 H Creatinine 6.32 H* D Est Cr Clr Drug Dosing 6.3 Est GFR ( Amer) 7.0 Est GFR (Non-Af Amer) 6.0 BUN/Creatinine Ratio 13.9 Glucose 109 H POC Glucose (other) Calcium 8.0 L Phosphorus 6.6 H D Magnesium 2.7 H Total Bilirubin 0.9 Direct Bilirubin 0.1 AST 95 H ALT 121 H Alkaline Phosphatase 148 H Ammonia 22.0 Total Protein 5.4 L Albumin 2.0 L Hep Bs Antigen Hep Bs Antibody Hep Bs Antibody, Quant 10/17/20 10/17/20 10/17/20 06:43 11:25 16:20 WBC 20.73 H RBC 3.51 L Hgb 9.9 L POC Hgb Hct 29.8 L POC Hct MCV 84.9 MCH 28.2 MCHC 33.2 RDW Std Deviation 51.8 H RDW Coeff of Roxanna 17.0 H Plt Count 165 MPV 11.0 H Immature Gran % (Auto) 4.5 Neut % (Auto) 90.3 Lymph % (Auto) 3.7 Perry % (Auto) 0.7 Eos % (Auto) 0.6 Baso % (Auto) 0.2 Neut # (Auto) 18.72 H Lymph # (Auto) 0.76 L Perry # (Auto) 0.14 Eos # (Auto) 0.12 Baso # (Auto) 0.05 Immature Gran # (Auto) 0.94 H Absolute Nucleated RBC 0.45 H Nucleated RBC % (auto) 2.2 Echinocytes 1+ Schistocytes 1+ Sample Site POC pH POC pCO2 POC pO2 POC HCO3 POC Total CO2 POC Base Excess ABG pH (Temp Correct) ABG pCO2 (Temp Corrct POC ABG pO2 at Pt Temp POC ABG O2 Sat Brandon Test O2 Delivery Device POC O2 Rate Minute Ventilation POC FiO2 Tidal Volume PEEP POC Sodium Sodium POC Potassium Potassium Chloride Carbon Dioxide Anion Gap BUN Creatinine Est Cr Clr Drug Dosing Est GFR ( Amer) Est GFR (Non-Af Amer) BUN/Creatinine Ratio Glucose POC Glucose (other) 114 H 110 H Calcium Phosphorus Magnesium Total Bilirubin Direct Bilirubin AST ALT Alkaline Phosphatase Ammonia Total Protein Albumin Hep Bs Antigen Hep Bs Antibody Hep Bs Antibody, Quant Diagnostic Findings Chest X-Ray 10/17/20 07:00 XR chest 1V portable CLINICAL HISTORY: covid COMPARISON STUDY: October 16, 2020 FINDINGS: No pneumothorax. No pleural effusion. Redemonstration of the mixed reticular and airspace opacities throughout bilateral lungs with air bronchograms at the left retrocardiac region is not significantly changed since prior. Cardiomediastinal silhouette is stable. Aorta is calcified. Pulmonary vasculature is obscured.. Osseous structures: unremarkable Tip of endotracheal tube is seen projecting 2.3 cm above sherie. Interval placement of the gastric tube, tip and fenestrated side-port are outside of [id number] and below level of hemidiaphragm. Stable position of right-sided central venous catheter. Multiple EKG wires are seen slightly limiting evaluation. IMPRESSION: 1. Stable multifocal infiltrates/opacities. 2. Tip of endotracheal tube is 2.3 cm above sherie. 3. Interval placement of the gastric tube, tip and fenestrated side-port outside of [id number] and below level of hemidiaphragm. ACT 112: Negative or not required by law. The above report was generated using voice recognition software. It may contain grammatical, syntax or spelling errors. Electronically signed by: Ainsley Pulido DO 10/17/2020 11:05 AM KUB X-Ray 10/17/20 07:00 KUB HISTORY: Status post placement of an enteric tube s/p OG placement COMPARISON: Chest radiograph of same day. FINDINGS: An enteric tube is present with distal tip projected over the lumbosacral junction, likely within the distal stomach. The lower abdomen is excluded from the [id number]. The bowel gas pattern appears nonobstructive. No urolith or opaque foreign body. No acute fracture. Cardiomegaly with bilateral pulmonary opacities. Right IJ central venous catheter is partially imaged. IMPRESSION: Distal tip of enteric tube projects over the distal stomach. ACT 112: Negative or not required by law. The above report was generated using voice recognition software. It may contain grammatical, syntax or spelling errors. Electronically signed by: Tristan Haider M.D. 10/17/2020 7:21 AM PG Care Time/CCT Total # of Minutes Spent Total Time Spent with Patient: Total time spent is greater than 50% in coordination of care (as documented) at patient's floor/unit and/or counseling patient: Coding Level of Care Code None Diagnoses Acute respiratory failure with hypoxemia J96.01 Acute kidney injury N17.9 Pneumonia due to 2019 novel coronavirus U07.1; J12.82 Bacterial pneumonia J15.9 Elevated troponin R77.8 Elevated d-dimer R79.89 Elevated liver enzymes R74.8 Hypokalemia E87.6 Metabolic acidosis E87.2 Fecal occult blood test positive R19.5 Hypotension I95.9 Severe sepsis A41.9; R65.20
[2020-10-18] MEDS: NOREPINEPHRINE/D5W 8 MG/508 ML BAG IV SCH ×3 (00:22→13:43)
[2020-10-18] MEDS: INSULIN ASPART 100 UNITS/ML 3 ML PEN SC SCH ×4 (00:23→18:38)
[2020-10-18] MEDS: TUBE FEEDING WATER FLUSH GT SCH ×6 (00:24→20:00)
[2020-10-18 05:10] LABS: Hematocrit (blood only) 27.9 % (37-47); Hemoglobin 9.3 g/dL (12.0-16.0); Mean Corpuscular Hemoglobin 28.4 pg (25-34); Mean Corpuscular Hgb Conc 33.3 g/dL (32-36); Mean Corpuscular Volume 85.3 fL (80-100); Nucleated RBC # (auto) 0.71 K/uL (0-0); Nucleated RBC % (auto) 3.7 %; Platelet Count 161 K/uL (130-400); RDW Coefficient of Variation 17.3 % (11.5-14.5); RDW Standard Deviation 52.8 fL (36.4-46.3); Red Blood Count 3.27 M/uL (4.2-5.4)
[2020-10-18] MEDS: HEPARIN SOD 5,000 UNIT/0.5 ML VIAL SQ SCH ×3 (05:11→22:06)
[2020-10-18 05:13] LABS: iSTAT Art Bld Gas pCO2 Correct 41 mmHg (35-46); iSTAT Art Bld Gas pH Corrected 7.311 (7.35-7.45); iSTAT Arterial Blood Gas HCO3 21 meg/L (19-24); iSTAT Arterial Blood Gas pCO2 41 mmHg (35-46); iSTAT Arterial Blood Gas pH 7.31 (7.35-7.45); iSTAT Arterial Blood Gas pO2 62 mmHg (80-95); iSTAT Arterial Blood Gas pO2 C 62; iSTAT Carbon Dioxide 22 mmol/L (24-31); iSTAT FiO2 50 %; iSTAT Hematocrit 29 % (37-47); iSTAT Hemoglobin 9.9 g/dl (12.0-16.0); iSTAT Potassium 4.4 mmol/L (3.3-5.0); iSTAT Site Art Line; iSTAT Sodium 134 mmol/L (135-144)
[2020-10-18 05:33] LABS: BUN Creatinine Ratio 10.3 (10-20); Calcium 7.7 mg/dl (8.5-10.1); Creatinine Clr Calc Pharmacy 11.7 ml/min; Est GFR (African American) 14.7 ml/min; Est GFR (Non-African American) 12.7 ml/min; Magnesium 2.4 mg/dl (1.8-2.4); Phosphorus 4.6 mg/dl (2.5-4.9); Potassium 4.6 mmol/L (3.5-5.1)
[2020-10-18] MEDS: INSULIN GLARGINE SOLOSTAR 100 UNITS/ML 3 ML PEN SC SCH ×2 (05:53→18:38)
[2020-10-18 07:01] LABS: Basophilic Stippling 1+; Basophils # (auto) 0.08 K/uL (0-0.2); Basophils % (auto) 0.4 %; Eosinophils # (auto) 0.41 K/uL (0-0.5); Eosinophils % (auto) 2.1 %; Immature Granulocytes # (auto) 1.27 K/uL (0.00-0.02); Immature Granulocytes % (auto) 6.5 %; Lymphocytes # (auto) 1.77 K/uL (1.2-3.4); Lymphocytes % (auto) 9.1 %; Monocytes # (auto) 0.16 K/uL (0.11-0.59); Monocytes % (auto) 0.8 %; Neutrophils # (auto) 15.81 K/uL (1.4-6.5); Neutrophils % (auto) 81.1 %; Polychromasia 1+; Schistocytes 1+
--- NOTE | 2020-10-18 07:14 | XRay Report ---
XR chest 1V portable HISTORY: 75 years-old Female covid pneumonia acute shortness of breath with pneumonia COMPARISON: Chest radiograph 10/17/2020 TECHNIQUE: Portable AP view of the chest FINDINGS: Cardiac silhouette is enlarged. Endotracheal tube overlies the midline, 3.3 cm superior to the sherie . Right IJ central venous catheter distal tip terminates in the expected location of the mid to infer ior SVC. Enteric tube courses below the diaphragm outside the [id number]. There is no pneumothorax or large pleural effusion. Pulmonary vascular congestion with multifocal lef t greater than right bilateral airspace opacities redemonstrated. Degenerative changes of the shoulde rs and spine. IMPRESSION: 1. Lines and tubes as above. 2. No pneumothorax. 3. No significant change of the multifocal bilateral airspace opacities suggestive of pneumonia. ACT 112: Negative or not required by law. The above report was generated using voice recognition software. It may contain grammatical, syntax o r spelling errors. Electronically signed by: Tristan Haider M.D. 10/18/2020 7:13 AM
[2020-10-18] MEDS ORDERED: SODIUM BICARB 8.4% INJ 50 MEQ/50 ML SYR IV ONE (08:08)
--- NOTE | 2020-10-18 08:12 | Critical Care Progress Note ---
Date of Service October 18, 2020 Assessment & Plan (1) Pneumonia due to 2019 novel coronavirus: (2) Bacterial pneumonia: (3) Elevated liver enzymes: (4) Acute respiratory failure with hypoxemia: (5) Elevated troponin: (6) Acute kidney injury: (7) Fecal occult blood test positive: Plan: Impression: 75-year-old female admitted with COVID-19 pneumonia. Course has been complicated by acute delirium requiring intubation for airway protection as well as acute renal failure requiring initiation of hemodialysis. 24-hour events: Hemodialysis performed yesterday. Ultrafiltration of 1.4 L. Unable to remove additional fluid due to blood pressure lability. Remains on pressors. Overnight had increasing oxygen requirement up to 100% FiO2 Recommendations: 1. Neurologic: Acute delirium. Unclear etiology but possibly secondary to Covid infection with superimposed metabolic abnormalities. She is currently sedated on propofol and fentanyl. Her exam previously was nonfocal so I think imaging and LP would be of limited utility at this point time. Continue supportive care. Daily sedation break as tolerated. Could consider transitioning from propofol to benzodiazepine however this may make delirium somewhat worse. Will check triglycerides in a few days. 2. Cardiovascular: Hypotension: The patient appears to be adequately volume resuscitated. She is over 8 L positive since presentation. Continue pressors. She is already on dexamethasone which should cover for relative adrenal insufficiency so little utility in random cortisol. 3. Pulmonary: Plateau pressures currently 28. Adjusted tidal volume for 6 cc/kg, 350 and increased respiratory rate to 22. Increase PEEP to 12 and decreased FiO2 to 0.6. Follow-up blood gas in an hour. Plateau pressures decreased to 25 with these changes. 4. ID: Completed 5 days of azithromycin and Rocephin. Received Tocilizumab. Stopped remdesivir due to bradycardia - unlikely to help at this point as viral replication not an issue. White count is elevated however the patient not been febrile. Previous cultures were negative. Follow closely at this point time as the patient is at risk for secondary infections. 5. Renal: Likely ATN - multifactorial. Pulmonary status would likely improve with continued ultrafiltration however it is unclear if the patient can tolerate due to her pressor requirements. Will discuss with nephrology today. She is acidotic and will given a dose of bicarb. Defer additional electrolytes to nephrology. 6. GI: No evidence of active ongoing GI bleeding. Continue PPI. Trickle tube feeds, holding advancing given pressor requirements 7. Endocrine: On dexamethasone. Glycemic control per protocol 8. Heme-onc: Stable anemia. Continue to trend. No evidence of active ongoing bleeding. Overall prognosis is guarded. Mortality of 72-year-old patients with Covid pneumonia requiring mechanical ventilation and progressing to acute renal failure requiring dialysis is quite high. Palliative care consult completed yesterday and appreciate their assistance. Will update family today as the patient appears to be clinically deteriorating. I believe that CPR or additional ACLS in this patient at this point time would not be beneficial in improving her overall outcome. Patient discussed on multidisciplinary rounds and with critical care bedside nurse. A total of 48 minutes critical care time was spent in evaluation management and coordination of care of this critically ill patient with multiple life-threatening issues Admission and Anticipated Discharge Date Admission Date: October 10, 2020 Subjective intubated and sedated Review of Systems Review of Systems: Unobtainable due to endotracheal tube Physical Exam Constitutional: + mechanically ventilated and + overweight Eyes: Pupils reactive. She has chemosis bilaterally Neck: trachea midline, no thyromegaly Respiratory: no respiratory distress Auscultation: + rales and + wheezes Cardiovascular: RRR, no murmur, no edema Gastrointestinal (Abdomen): normal bowel sounds, soft, nontender, no hepatosplenomegaly Musculoskeletal: Extremities: extremities normal to inspection Skin: no rashes, warm and dry Lymphatic: no cervical lymphadenopathy Results & Data Results & Data ([facility]) Vital Signs (Past 12 Hours) Vital Signs Temp Pulse Resp BP Pulse Ox 10/18/20 07:56 67 21 93 10/18/20 07:32 60 10/18/20 06:59 36.9 C 68 112/42 L 80 L 10/18/20 05:59 37.0 C 57 L 133/53 L 97 10/18/20 04:59 37.0 C 61 100/41 L 90 10/18/20 03:59 37.2 C 59 L 110/44 L 91 10/18/20 03:34 63 19 90 10/18/20 02:00 37.4 C 61 110/40 L 90 10/18/20 01:01 37.3 C 62 90 10/18/20 00:00 37.1 C 63 125/63 88 L 10/17/20 22:48 55 L 18 91 10/17/20 22:00 37.1 C 56 L 153/55 H 91 10/17/20 21:32 37.1 C 57 L 80/33 L 88 L 10/17/20 20:59 37.1 C 56 L 99/42 L 90 Critical Care Results & Data Vital Signs (Past 12 Hours) Vital Signs Temp Pulse Resp BP Pulse Ox 10/18/20 07:56 67 21 93 10/18/20 07:32 60 10/18/20 06:59 36.9 C 68 112/42 L 80 L 10/18/20 05:59 37.0 C 57 L 133/53 L 97 10/18/20 04:59 37.0 C 61 100/41 L 90 10/18/20 03:59 37.2 C 59 L 110/44 L 91 10/18/20 03:34 63 19 90 10/18/20 02:00 37.4 C 61 110/40 L 90 10/18/20 01:01 37.3 C 62 90 10/18/20 00:00 37.1 C 63 125/63 88 L 10/17/20 22:48 55 L 18 91 10/17/20 22:00 37.1 C 56 L 153/55 H 91 10/17/20 21:32 37.1 C 57 L 80/33 L 88 L 10/17/20 20:59 37.1 C 56 L 99/42 L 90 Lab & Micro Results (Past 24 Hours) RBC 3.27 M/uL (4.2-5.4) L 10/18/20 WBC 19.50 K/uL (4.8-10.8) H 10/18/20 Hgb 9.3 g/dL (12.0-16.0) L 10/18/20 Hct 27.9 % (37-47) L 10/18/20 MCV 85.3 fL (80-100) 10/18/20 MCH 28.4 pg (25-34) 10/18/20 MCHC 33.3 g/dL (32-36) 10/18/20 RDW Standard Deviation 52.8 fL (36.4-46.3) H 10/18/20 RDW Coefficient of Variation 17.3 % (11.5-14.5) H 10/18/20 Plt Count 161 K/uL (130-400) 10/18/20 MPV 11.0 fL (7.4-10.4) H 10/18/20 Nucleated Red Blood Cells % (auto) 3.7 % 10/18/20 Nucleated RBC Absolute Count (auto) 0.71 K/uL (0-0) H 10/18/20 Neutrophils (%) (Auto) 81.1 % 10/18/20 Lymphocytes (%) (Auto) 9.1 % 10/18/20 Monocytes # (Auto) 0.16 K/uL (0.11-0.59) 10/18/20 Eosinophils # (Auto) 0.41 K/uL (0-0.5) 10/18/20 Immature Granulocyte % (Auto) 6.5 % 10/18/20 Neutrophils # (Auto) 15.81 K/uL (1.4-6.5) H 10/18/20 Lymphocytes # (Auto) 1.77 K/uL (1.2-3.4) 10/18/20 Monocytes # (Auto) 0.16 K/uL (0.11-0.59) 10/18/20 Eosinophils # (Auto) 0.41 K/uL (0-0.5) 10/18/20 Basophils # (Auto) 0.08 K/uL (0-0.2) 10/18/20 Immature Granulocyte # (Auto) 1.27 K/uL (0.00-0.02) H 10/18/20 Polychromasia 1+ 10/18/20 Basophilic Stippling 1+ 10/18/20 Echinocytes 1+ 10/17/20 Schistocytes 1+ 10/18/20 Na 133 mmol/L (136-145) L 10/18/20 K 4.6 mmol/L (3.5-5.1) 10/18/20 Cl 108 mmol/L (98-107) H 10/18/20 CO2 23 mmol/L (21-32) 10/18/20 Anion Gap 2.0 (3-11) L 10/18/20 BUN 35 mg/dl (7-18) H 10/18/20 Creatinine 3.40 mg/dl (0.6-1.2) H 10/18/20 Estimated GFR ( Amer) 14.7 ml/min 10/18/20 Estimated GFR (Non-Af Amer) 12.7 ml/min 10/18/20 BUN/Creatinine Ratio 10.3 (10-20) 10/18/20 Glu 98 mg/dl (70-99) 10/18/20 Ca 7.7 mg/dl (8.5-10.1) L 10/18/20 Phosphorus Level 4.6 mg/dl (2.5-4.9) 10/18/20 Mg 2.4 mg/dl (1.8-2.4) 10/18/20 04:53 10/18/20 Calcium Level 7.7 mg/dl (8.5-10.1) L 10/18/20 04:53 10/18/20 Brandon Test NA 10/18/20 05:00 10/18/20 Microbiology 10/15/20 17:00 Gram Stain - Final Sputum, Expectorated Sputum Culture - Final Moderate normal marcia. Diagnostic Findings (Past 24 Hours) Chest X-Ray 10/17/20 07:00 XR chest 1V portable CLINICAL HISTORY: covid COMPARISON STUDY: October 16, 2020 FINDINGS: No pneumothorax. No pleural effusion. Redemonstration of the mixed reticular and airspace opacities throughout bilateral lungs with air bronchograms at the left retrocardiac region is not significantly changed since prior. Cardiomediastinal silhouette is stable. Aorta is calcified. Pulmonary vasculature is obscured.. Osseous structures: unremarkable Tip of endotracheal tube is seen projecting 2.3 cm above sherie. Interval placement of the gastric tube, tip and fenestrated side-port are outsid e of [id number] and below level of hemidiaphragm. Stable position of right-sided central venous catheter. Multiple EKG wires are seen slightly limiting evaluation. IMPRESSION: 1. Stable multifocal infiltrates/opacities. 2. Tip of endotracheal tube is 2.3 cm above sherie. 3. Interval placement of the gastric tube, tip and fenestrated side-port outside of [id number] and below level of hemidiaphragm. ACT 112: Negative or not required by law. The above report was generated using voice recognition software. It may contain grammatical, syntax or spelling errors. Electronically signed by: Ainsley Pulido DO 10/17/2020 11:05 AM Chest X-Ray 10/18/20 07:00 XR chest 1V portable HISTORY: 75 years-old Female covid pneumonia acute shortness of breath with pneumonia COMPARISON: Chest radiograph 10/17/2020 TECHNIQUE: Portable AP view of the chest FINDINGS: Cardiac silhouette is enlarged. Endotracheal tube overlies the midline, 3.3 cm superior to the sherie. Right IJ central venous catheter distal tip terminates in the expected location of the mid to inferior SVC. Enteric tube courses below the diaphragm outside the [id number]. There is no pneumothorax or large pleural effusion. Pulmonary vascular congestion with multifocal left greater than right bilateral airspace opacities redemonstrated. Degenerative changes of the shoulders and spine. IMPRESSION: 1. Lines and tubes as above. 2. No pneumothorax. 3. No significant change of the multifocal bilateral airspace opacities suggestive of pneumonia. ACT 112: Negative or not required by law. The above report was generated using voice recognition software. It may contain grammatical, syntax or spelling errors. Electronically signed by: Tristan Haider M.D. 10/18/2020 7:13 AM I & O Totals 24 Hours 10/17/20 10/18/20 10/19/20 06:59 06:59 06:59 Intake Total 575.738 / 247.401 1380.097 / 2013. Output Total 305 / 305 1000 / 1000 0 / 0 Balance 270.738 / 644.041 8163.097 / 1014.097 0 / 0 Cumulative 10/10/20 18:21 thru 10/18/20 07:32 Intake Total 64436.019 Output Total 4340 Balance 9457.019 RT Ventilator Mngmt (Last Documented) Ventilator Ordered Settings Ventilator Support Mode Assist Control 10/18/20 07:56 Respiratory Rate 21 10/18/20 07:56 Ventilator Tidal Volume 460 10/18/20 07:56 Setting Minute Ventilation 8.3 10/18/20 07:56 Ventilator Positive Pressure 8 10/17/20 16:00 Support Setting Positive End Expiratory 8 10/18/20 07:56 Pressure Fraction of Inspired Oxygen 70 10/18/20 07:56 Machine Comment Pt was bumped back up to 50% 10/18/20 03:34 Ventilator - PT Measurements Respiratory Rate 21 Exhaled Tidal Volume 460 Minute Ventilation 8.3 Peak Inspiratory Airway 30 Pressure Mean Airway Pressure 15 Plateau Pressure 25.8 Respiratory Cycle Inspiratory: 1:3.2 Expiratory Ratio Inspiratory Phase Time 0.8 End-Tidal CO2 24 Static Lung Compliance 25.84 Dynamic Lung Compliance 20.91 Normal Static Lung Compliance 46.00 Coding Level of Care Code Critical Care 1st 30-74 mins Diagnoses Pneumonia due to 2019 novel coronavirus U07.1; J12.82 Bacterial pneumonia J15.9 Elevated liver enzymes R74.8 Acute respiratory failure with hypoxemia J96.01 Elevated troponin R77.8 Acute kidney injury N17.9 Fecal occult blood test positive R19.5 Time Spent (min) 48
[2020-10-18] MEDS: PANTOprazole 40 MG in SYRINGE 0 ML IV SCH (08:20)
[2020-10-18] MEDS: propofoL 1,000 MG/100 ML VIAL IV SCH ×2 (08:20→16:09)
[2020-10-18] MEDS: dexAMETHasone 6 MG in SYRINGE 0 ML IV SCH (08:20)
[2020-10-18] MEDS: ESCITALOPRAM OXALATE ORAL SOLN 20 MG/20 ML UDP PO SCH (08:21)
[2020-10-18] MEDS ORDERED: SODIUM CHLORIDE 0.9% 1000ML 1,000 ML IV PRN (08:49)
--- NOTE | 2020-10-18 08:59 | Nephrology Progress Note ---
Date of Service October 18, 2020 Assessment & Plan (1) Acute kidney injury: Plan: * Baseline creatinine <1 mg/dL * LENNOX c/w ATN * US without obstruction * Urinalysis 10/15 negative for casts * HD performed 10/15 and 10/17. Patient remains 9 L volume +. CXR shows mild apical clearing. FiO2 increased to 60%. Patient requires Levophed for BP support * Will provide HD today for continued UF. Plan 3 hours, 4K bath, increase HCO3 to 32, low dose heparin, attempt 2 L UF. Orders have been placed in EMR and HD RN notified. Plan of care reviewed w/ ICU team (2) Pneumonia due to 2019 novel coronavirus: Plan: * Received Toclizumab 10/13/20 * Remains on Dexamethasone 6 mg IV daily * Remdesivir held due to LENNOX * Prognosis guarded - COVID pneumonia requiring mechanical ventilation, pressor support (Levophed 7 mcg/min), LENNOX requiring HD (3) Hypertension: Plan: * SBP has been labile 100 - 133 mm Hg * Remains on Levophed gtt Admission and Anticipated Discharge Date Admission Date: October 10, 2020 Subjective Mrs. Suero remains on respiratory isolation due to COVID pneumonia. She is sedated, mechanically ventilated and requires Levophed for pressor support. 2nd HD was performed yesterday for 1400 cc UF. Now on 60% FiO2. Levophed dose unchanged. CXR with mild apical clearing. Review of Systems Review of Systems: Unobtainable due to endotracheal tube Results & Data ([facility]) Vital Signs (Past 12 Hours) Vital Signs Temp Pulse Resp BP Pulse Ox 10/18/20 07:56 67 21 93 10/18/20 07:32 60 10/18/20 06:59 36.9 C 68 112/42 L 80 L 10/18/20 05:59 37.0 C 57 L 133/53 L 97 10/18/20 04:59 37.0 C 61 100/41 L 90 10/18/20 03:59 37.2 C 59 L 110/44 L 91 10/18/20 03:34 63 19 90 10/18/20 02:00 37.4 C 61 110/40 L 90 10/18/20 01:01 37.3 C 62 90 10/18/20 00:00 37.1 C 63 125/63 88 L 10/17/20 22:48 55 L 18 91 10/17/20 22:00 37.1 C 56 L 153/55 H 91 10/17/20 21:32 37.1 C 57 L 80/33 L 88 L 10/17/20 20:59 37.1 C 56 L 99/42 L 90 Laboratory Results Laboratory Tests 10/18/20 10/18/20 10/18/20 04:53 04:53 05:00 WBC 19.50 H Hgb 9.3 L Hct 27.9 L Plt Count 161 POC Sodium 134 L POC Potassium 4.4 Chloride 108 H Carbon Dioxide 23 BUN 35 H D Creatinine 3.40 H D Calcium 7.7 L Phosphorus 4.6 D Magnesium 2.4 PG Care Time/CCT Total # of Minutes Spent Total Time Spent with Patient: Total time spent is greater than 50% in c oordination of care (as documented) at patient's floor/unit and/or counseling patient: Coding Level of Care Code 18496 Subseq Hosp Care Lvl 3 Diagnoses Acute kidney injury N17.9 Pneumonia due to 2019 novel coronavirus U07.1; J12.82 Hypertension I10
[2020-10-18] MEDS ORDERED: EPOETIN ALFA 10,000 UNITS/ML VIAL IV SCH (09:00)
[2020-10-18] MEDS ORDERED: HEPARIN SOD (PORCINE) 1000 UNIT/ML IV SCH ×2 (09:00)
[2020-10-18] MEDS: fentaNYL DRIP 1,250 MCG/250 ML BAG IV SCH ×2 (09:07→20:32)
[2020-10-18 09:19] LABS: iSTAT Art Bld Gas pCO2 Correct 44 mmHg (35-46); iSTAT Art Bld Gas pH Corrected 7.335 (7.35-7.45); iSTAT Arterial Blood Gas HCO3 23 meg/L (19-24); iSTAT Arterial Blood Gas pCO2 44 mmHg (35-46); iSTAT Arterial Blood Gas pH 7.34 (7.35-7.45); iSTAT Arterial Blood Gas pO2 46 mmHg (80-95); iSTAT Arterial Blood Gas pO2 C 46; iSTAT Carbon Dioxide 25 mmol/L (24-31); iSTAT FiO2 60 %; iSTAT Hematocrit 26 % (37-47); iSTAT Hemoglobin 8.8 g/dl (12.0-16.0); iSTAT Potassium 4.3 mmol/L (3.3-5.0); iSTAT Site Art Line; iSTAT Sodium 135 mmol/L (135-144)
--- NOTE | 2020-10-18 11:01 | Palliative Care Progress Note ---
Date of Service October 18, 2020 Assessment & Plan (1) Palliative care encounter: Plan: Patient continues to be guarded with poor prognosis. She has received another bedside hemodialysis treatment today. Her creatinine has shown some improvement; initially her creatinine was 6.2, now 3.4. During dialysis, Levophed required increasing and she became tachypnic, leading to increased FiO2 need. I was able to talk with the patients , Gail who appears to have some better insight into how grave her condition is. He was agreeable to her being a DNR at this point, which is reflected in the computer. Additionally, we discussed what Zenobia would want regarding alf aggressive and heroic interventions. He did say that he does not think that she would want a tracheostomy or longer ventilation with a machine, which is different from the discussion held yesterday with her sister. I did discuss transfer with Dr. Suarez who did not feel that CRRT would improve the overall trajectory of her illness, which was supported and relayed to her . I, again suggested a full conversation over the phone with all parties wishing to be involved. He has contacted their 4 adult children that live in various locations of the country. He did express that he is not vaccinated and 3 out of 4 of his children are. I did offer for him to have a window visit, but he declined. Current plan is to continue current treatment with escalation of care, up until cardiac arrest as he does not want her to undergo CPR/shocking/defibrillation. We discussed withdraw of care and what that looks like. He said that his kids and him have been discussing this internally. I suggested a phone family meeting including the kids, and sister. He suggested tomorrow, Saturday at 1500 . This was discussed with Dr. Suarez. Palliative Medicine will follow. (2) Acute respiratory failure with hypoxemia: (3) Pneumonia due to 2019 novel coronavirus: (4) Anxiety: Admission and Anticipated Discharge Date Admission Date: October 10, 2020 Subjective Patient remains intubated, increased O2 need through the day today, between 60-80% FiO2. Pt received HD today, remaining on vasoactive pressor support. Patient prognosis remains poor. Please see A/P for further details. Review of Systems Review of Systems: Unobtainable due to endotracheal tube Physical Exam Physical Exam: physical exam deferred due to COVID-19. Discussed with IDT Results & Data ([facility]) Vital Signs (Past 12 Hours) Vital Signs Temp Pulse Pulse Pulse Resp BP BP 10/18/20 10:59 37.1 C 66 107/51 L 10/18/20 10:45 64 104/54 L 10/18/20 10:44 37.1 C 63 104/54 L 10/18/20 10:30 64 111/46 L 10/18/20 10:29 37.1 C 64 111/46 L 10/18/20 10:15 60 128/58 L 10/18/20 10:00 37.1 C 64 128/47 L 10/18/20 09:55 37.1 C 63 10/18/20 09:30 65 21 10/18/20 09:16 37.1 C 65 103/40 L 10/18/20 09:13 37.1 C 67 131/36 L 10/18/20 08:59 37.1 C 72 136/37 L 10/18/20 08:30 37.1 C 21 96/32 L 10/18/20 08:15 71 19 104/35 L 10/18/20 07:59 37.1 C 70 107/32 L 10/18/20 07:56 67 21 10/18/20 07:32 60 10/18/20 06:59 36.9 C 68 112/42 L 10/18/20 05:59 37.0 C 57 L 133/53 L 10/18/20 04:59 37.0 C 61 100/41 L 10/18/20 03:59 37.2 C 59 L 110/44 L 10/18/20 03:34 63 19 10/18/20 02:00 37.4 C 61 110/40 L 10/18/20 01:01 37.3 C 62 10/18/20 00:00 37.1 C 63 125/63 Pulse Ox 10/18/20 10:59 92 10/18/20 10:45 10/18/20 10:44 99 10/18/20 10:30 10/18/20 10:29 88 L 10/18/20 10:15 10/18/20 10:00 96 10/18/20 09:55 10/18/20 09:30 94 10/18/20 09:16 92 10/18/20 09:13 88 L 10/18/20 08:59 95 10/18/20 08:30 90 10/18/20 08:15 89 L 10/18/20 07:59 89 L 10/18/20 07:56 93 10/18/20 07:32 10/18/20 06:59 80 L 10/18/20 05:59 97 10/18/20 04:59 90 10/18/20 03:59 91 10/18/20 03:34 90 10/18/20 02:00 90 10/18/20 01:01 90 10/18/20 00:00 88 L PG Care Time/CCT Total # of Minutes Spent Total Time Spent with Patient: Total time spent is greater than 50% in coordination of care (as documented) at patient's floor/unit and/or counseling patient: 45 minutes with >50% of that time spent assessing the patient, discussing goals of care with the patients and collaborating with IDT Coding Level of Care Code 85942 Prolonged Care (int'l) Diagnoses Palliative care encounter Z51.5 Acute respiratory failure with hypoxemia J96.01 Pneumonia due to 2019 novel coronavirus U07.1; J12.82 Anxiety F41.9 Time Spent (min) 45
[2020-10-18] MEDS: ASPIRIN 81 MG CHEW NG SCH (11:33)
[2020-10-18] MEDS: PEPTAMEN INTENSE VHP 1.0 CAL 1,000 ML BAG OG SCH (16:09)
--- NOTE | 2020-10-18 21:13 | Hospitalist Progress Note ---
Date of Service October 18, 2020 Assessment & Plan (1) Acute respiratory failure with hypoxemia: Plan: 2nd to severe COVID-19 pneumonia. Cannot rule out component of bacterial superinfection s/p IV antibiotics for such earlier this stay. Suspect some element of volume overload component from her acute renal failure. Respiratory status is unchanged; if anything it worsened overnight. s/p vent changes this am by Dr Suarez. Date of intubation - 10/16/20. (2) Severe sepsis: Plan: 2nd to COVID-19 pneumonia. Now with hypotension requiring pressors. (3) Acute kidney injury: Plan: ATN due to COVID-19 (and/or remdesivir) with resulting severe acute renal failure. Temporary HD catheter placed 10/15. Attempts at HD then unsuccessful. s/p HD yesterday and again today. 2 L of fluid pulled today. Baseline Cr 0.9. Daily BMP. Appreciate nephrology assistance. (4) Pneumonia due to 2019 novel coronavirus: Plan: Critically ill due to such. Day #10/18 of dexamethasone 6mg IV daily. Remdesivir - first dose given on 10/10. Received dose #2 on 10/11. Due to development of LENNOX and transaminitis the remdesivir was stopped after 2nd dose. s/p Tocilizumab - 10/13/20. s/p full 5-day course of rocephin/zithromax. s/p intubation on 10/16/20 with mechanical ventilation since then. Remains critically ill. (5) Bacterial pneumonia: Plan: s/p ceftriaxone + azithromycin x 5 days earlier this stay. Most recent procal wnl. (6) Hypotension: Plan: 2nd to severe sepsis, COVID-19, medications (propofol), etc. Continue levophed. (7) Elevated troponin: Plan: Peak trop 0.154. 2nd to myocardial demand ischemia. (8) Elevated d-dimer: Plan: 4890 on admission (10/10/20). LE dopplers negative for DVT b/l. Unable to perform CT to r/o PE due to LENNOX. (9) Elevated liver enzymes: Plan: transaminitis 2nd to COVID-19. LFTs downtrending. Recheck ast/alt in am. (10) Hypokalemia: Plan: Resolved (11) Metabolic acidosis: Plan: 2nd to acute renal failure and severe sepsis. Mild, ongoing. s/p bicarbonate therapy today. (12) Fecal occult blood test positive: Plan: Melanic stools on second day of admission. Cont PPI for GI prophylaxis. Hemoglobin today 9.3, similar to 8.9.21. Follow. (13) Hyponatremia: Plan: Mild 133 2nd to ARF Plan: palliative care consult completed and daily visits appreciated patient now DNR family meeting to discuss goals of care to take place tomorrow Admission and Anticipated Discharge Date Admission Date: October 10, 2020 Subjective Events of overnight/today reviewed. By this am was requiring 100% FiO2 on the vent. Dr Suarez and respiratory made vent changes including increase in PEEP to 12 and decrease in FiO2. HD occurred today - 2 liters fluid removed. Discussed status with bedside nurse. Discussed pt's status with Gaby Boyce from palliative care. Patient now DNR. Family meeting to occur tomorrow. Review of Systems Review of Systems: bedside visit not performed; patient intubated and sedated Physical Exam Physical Exam: bedside visit and physical exam again NOT performed Results & Data Results & Data ([facility]) Vital Signs (Past 12 Hours) Vital Signs Temp Pulse Pulse Pulse Resp BP BP 10/18/20 18:44 37.2 C 57 L 131/45 L 10/18/20 18:29 37.2 C 57 L 138/46 L 10/18/20 18:14 37.3 C 58 L 119/45 L 10/18/20 17:59 37.3 C 61 117/46 L 10/18/20 17:44 37.3 C 58 L 116/42 L 10/18/20 17:29 37.3 C 60 115/45 L 10/18/20 17:14 37.3 C 62 116/40 L 10/18/20 16:59 37.3 C 57 L 122/47 L 10/18/20 16:44 37.4 C 60 124/45 L 10/18/20 16:29 37.4 C 59 L 109/43 L 10/18/20 16:14 37.5 C 59 L 108/45 L 10/18/20 16:00 66 10/18/20 15:59 37.5 C 60 92/41 L 10/18/20 15:44 37.6 C H 62 100/42 L 10/18/20 15:42 66 25 H 10/18/20 15:29 37.5 C 62 96/32 L 10/18/20 15:14 37.5 C 66 150/42 H 10/18/20 14:59 37.5 C 64 140/46 L 10/18/20 14:44 37.5 C 66 112/63 10/18/20 14:29 37.4 C 66 88/44 L 10/18/20 14:14 37.3 C 66 131/48 L 10/18/20 13:59 37.3 C 70 123/40 L 10/18/20 13:30 37.2 C 80 71 84/35 L 105/59 L 10/18/20 13:13 37.2 C 72 105/59 L 10/18/20 13:00 76 106/46 L 10/18/20 12:59 37.2 C 75 94/42 L 10/18/20 12:45 74 91/58 L 10/18/20 12:44 37.2 C 73 91/58 L 10/18/20 12:30 73 100/44 L 10/18/20 12:29 37.2 C 69 100/44 L 10/18/20 12:15 68 101/58 L 10/18/20 12:14 37.2 C 66 101/58 L 10/18/20 12:00 71 96/54 L 10/18/20 11:59 37.1 C 70 96/54 L 10/18/20 11:45 65 104/63 10/18/20 11:44 37.1 C 67 104/63 10/18/20 11:30 64 125/41 L 10/18/20 11:29 37.1 C 61 125/41 L 10/18/20 11:25 64 28 H 10/18/20 11:15 66 95/55 L 10/18/20 11:14 37.1 C 64 95/55 L 10/18/20 11:00 66 107/51 L 10/18/20 10:59 37.1 C 66 107/51 L 10/18/20 10:45 64 104/54 L 10/18/20 10:44 37.1 C 63 104/54 L 10/18/20 10:30 64 111/46 L 10/18/20 10:29 37.1 C 64 111/46 L 10/18/20 10:15 60 128/58 L 10/18/20 10:00 37.1 C 64 128/47 L 10/18/20 09:55 37.1 C 63 10/18/20 09:30 65 21 10/18/20 09:16 37.1 C 65 103/40 L 10/18/20 09:13 37.1 C 67 131/36 L Pulse Ox 10/18/20 18:44 92 10/18/20 18:29 95 10/18/20 18:14 92 10/18/20 17:59 92 10/18/20 17:44 94 10/18/20 17:29 92 10/18/20 17:14 93 10/18/20 16:59 92 10/18/20 16:44 95 10/18/20 16:29 91 10/18/20 16:14 94 10/18/20 16:00 10/18/20 15:59 95 10/18/20 15:44 94 10/18/20 15:42 94 10/18/20 15:29 94 10/18/20 15:14 95 10/18/20 14:59 93 10/18/20 14:44 92 10/18/20 14:29 91 10/18/20 14:14 97 10/18/20 13:59 96 10/18/20 13:30 89 L 10/18/20 13:13 96 10/18/20 13:00 10/18/20 12:59 96 10/18/20 12:45 10/18/20 12:44 96 10/18/20 12:30 10/18/20 12:29 92 10/18/20 12:15 10/18/20 12:14 94 10/18/20 12:00 10/18/20 11:59 96 10/18/20 11:45 10/18/20 11:44 94 10/18/20 11:30 10/18/20 11:29 100 10/18/20 11:25 94 10/18/20 11:15 10/18/20 11:14 93 10/18/20 11:00 10/18/20 10:59 92 10/18/20 10:45 10/18/20 10:44 99 10/18/20 10:30 10/18/20 10:29 88 L 10/18/20 10:15 10/18/20 10:00 96 10/18/20 09:55 10/18/20 09:30 94 10/18/20 09:16 92 10/18/20 09:13 88 L Laboratory Results Laboratory Results - last 24 hr 10/17/20 10/18/20 10/18/20 23:57 04:53 04:53 WBC 19.50 H RBC 3.27 L Hgb 9.3 L POC Hgb Hct 27.9 L POC Hct MCV 85.3 MCH 28.4 MCHC 33.3 RDW Std Deviation 52.8 H RDW Coeff of Roxanna 17.3 H Plt Count 161 MPV 11.0 H Immature Gran % (Auto) 6.5 Neut % (Auto) 81.1 Lymph % (Auto) 9.1 [place] % (Auto) 0.8 Eos % (Auto) 2.1 Baso % (Auto) 0.4 Neut # (Auto) 15.81 H Lymph # (Auto) 1.77 [place] # (Auto) 0.16 Eos # (Auto) 0.41 Baso # (Auto) 0.08 Immature Gran # (Auto) 1.27 H Absolute Nucleated RBC 0.71 H Nucleated RBC % (auto) 3.7 Polychromasia 1+ Basophilic Stippling 1+ Schistocytes 1+ Sample Site POC pH POC pCO2 POC pO2 POC HCO3 POC Total CO2 POC Base Excess ABG pH (Temp Correct) ABG pCO2 (Temp Corrct POC ABG pO2 at Pt Temp POC ABG O2 Sat Brandon Test O2 Delivery Device POC O2 Rate Minute Ventilation POC FiO2 Tidal Volume PEEP POC Sodium Sodium 133 L POC Potassium Potassium 4.6 Chloride 108 H Carbon Dioxide 23 Anion Gap 2.0 L BUN 35 H D Creatinine 3.40 H D Est Cr Clr Drug Dosing 11.7 Est GFR ( Amer) 14.7 Est GFR (Non-Af Amer) 12.7 BUN/Creatinine Ratio 10.3 Glucose 98 POC Glucose 97 POC Glucose (other) Calcium 7.7 L Phosphorus 4.6 D Magnesium 2.4 10/18/20 10/18/20 10/18/20 05:00 05:22 09:00 WBC RBC Hgb POC Hgb 9.9 L 8.8 L Hct POC Hct 29 L 26 L MCV MCH MCHC RDW Std Deviation RDW Coeff of Roxanna Plt Count MPV Immature Gran % (Auto) Neut % (Auto) Lymph % (Auto) [place] % (Auto) Eos % (Auto) Baso % (Auto) Neut # (Auto) Lymph # (Auto) [place] # (Auto) Eos # (Auto) Baso # (Auto) Immature Gran # (Auto) Absolute Nucleated RBC Nucleated RBC % (auto) Polychromasia Basophilic Stippling Schistocytes Sample Site Art Line Art Line POC pH 7.31 L 7.34 L POC pCO2 41 44 POC pO2 62 L 46 L POC HCO3 21 23 POC Total CO2 22 L 25 POC Base Excess -6.0 -3.0 ABG pH (Temp Correct) 7.311 L 7.335 L ABG pCO2 (Temp Corrct 41 44 POC ABG pO2 at Pt Temp 62 46 POC ABG O2 Sat 89.0 L 78.0 L Brandon Test NA NA O2 Delivery Device Ventilator Ventilator POC O2 Rate 18 22 Minute Ventilation 8.3 8.2 POC FiO2 50 60 Tidal Volume 460 350 PEEP 8 12 POC Sodium 134 L 135 Sodium POC Potassium 4.4 4.3 Potassium Chloride Carbon Dioxide Anion Gap BUN Creatinine Est Cr Clr Drug Dosing Est GFR ( Amer) Est GFR (Non-Af Amer) BUN/Creatinine Ratio Glucose POC Glucose POC Glucose (other) 105 H Calcium Phosphorus Magnesium 10/18/20 10/18/20 11:27 18:35 WBC RBC Hgb POC Hgb Hct POC Hct MCV MCH MCHC RDW Std Deviation RDW Coeff of Roxanna Plt Count MPV Immature Gran % (Auto) Neut % (Auto) Lymph % (Auto) [place] % (Auto) Eos % (Auto) Baso % (Auto) Neut # (Auto) Lymph # (Auto) [place] # (Auto) Eos # (Auto) Baso # (Auto) Immature Gran # (Auto) Absolute Nucleated RBC Nucleated RBC % (auto) Polychromasia Basophilic Stippling Schistocytes Sample Site POC pH POC pCO2 POC pO2 POC HCO3 POC Total CO2 POC Base Excess ABG pH (Temp Correct) ABG pCO2 (Temp Corrct POC ABG pO2 at Pt Temp POC ABG O2 Sat Brandon Test O2 Delivery Device POC O2 Rate Minute Ventilation POC FiO2 Tidal Volume PEEP POC Sodium Sodium POC Potassium Potassium Chloride Carbon Dioxide Anion Gap BUN Creatinine Est Cr Clr Drug Dosing Est GFR ( Amer) Est GFR (Non-Af Amer) BUN/Creatinine Ratio Glucose POC Glucose POC Glucose (other) 117 H 139 H Calcium Phosphorus Magnesium Diagnostic Findings Chest X-Ray 10/18/20 07:00 XR chest 1V portable HISTORY: 75 years-old Female covid pneumonia acute shortness of breath with pneumonia COMPARISON: Chest radiograph 10/17/2020 TECHNIQUE: Portable AP view of the chest FINDINGS: Cardiac silhouette is enlarged. Endotracheal tube overlies the midline, 3.3 cm superior to the sherie. Right IJ central venous catheter distal tip terminates in the expected location of the mid to inferior SVC. Enteric tube courses below the diaphragm outside the [id number]. There is no pneumothorax or large pleural effusion. Pulmonary vascular congestion with multifocal left greater than right bilateral airspace opacities redemonstrated. Degenerative changes of the shoulders and spine. IMPRESSION: 1. Lines and tubes as above. 2. No pneumothorax. 3. No significant change of the multifocal bilateral airspace opacities suggestive of pneumonia. ACT 112: Negative or not required by law. The above report was generated using voice recognition software. It may contain grammatical, syntax or spelling errors. Electronically signed by: Tristan Haider M.D. 10/18/2020 7:13 AM PG Care Time/CCT Total # of Minutes Spent Total Time Spent with Patient: Total time spent is greater than 50% in coordination of care (as documented) at patient's floor/unit and/or counseling patient: Coding Level of Care Code None Diagnoses Acute respiratory failure with hypoxemia J96.01 Severe sepsis A41.9; R65.20 Acute kidney injury N17.9 Pneumonia due to 2019 novel coronavirus U07.1; J12.82 Bacterial pneumonia J15.9 Hypotension I95.9 Elevated troponin R77.8 Elevated d-dimer R79.89 Elevated liver enzymes R74.8 Hypokalemia E87.6 Metabolic acidosis E87.2 Fecal occult blood test positive R19.5 Hyponatremia E87.1
[2020-10-19] MEDS: INSULIN ASPART 100 UNITS/ML 3 ML PEN SC SCH ×4 (00:01→17:34)
[2020-10-19] MEDS: TUBE FEEDING WATER FLUSH GT SCH ×6 (00:18→20:10)
[2020-10-19] MEDS: propofoL 1,000 MG/100 ML VIAL IV SCH ×3 (00:43→17:36)
[2020-10-19] MEDS: HEPARIN SOD 5,000 UNIT/0.5 ML VIAL SQ SCH ×3 (05:12→23:03)
[2020-10-19 05:44] LABS: iSTAT Arterial Blood Gas HCO3 22 meg/L (19-24); iSTAT Arterial Blood Gas pCO2 46 mmHg (35-46); iSTAT Arterial Blood Gas pH 7.28 (7.35-7.45); iSTAT Arterial Blood Gas pO2 49 mmHg (80-95); iSTAT Carbon Dioxide 23 mmol/L (24-31); iSTAT FiO2 50 %; iSTAT Site Art Line
[2020-10-19] MEDS: INSULIN GLARGINE SOLOSTAR 100 UNITS/ML 3 ML PEN SC SCH ×3 (05:49→20:11)
[2020-10-19 06:16] LABS: Hematocrit (blood only) 26.1 % (37-47); Hemoglobin 8.5 g/dL (12.0-16.0); Mean Corpuscular Hemoglobin 28.1 pg (25-34); Mean Corpuscular Hgb Conc 32.6 g/dL (32-36); Mean Corpuscular Volume 86.4 fL (80-100); Mean Platelet Volume 10.5 fL (7.4-10.4); Nucleated RBC # (auto) 0.49 K/uL (0-0); Nucleated RBC % (auto) 2.5 %; Platelet Count 141 K/uL (130-400); RDW Coefficient of Variation 17.5 % (11.5-14.5); RDW Standard Deviation 54.2 fL (36.4-46.3); Red Blood Count 3.02 M/uL (4.2-5.4); White Blood Count 19.52 K/uL (4.8-10.8)
[2020-10-19 06:47] LABS: Basophilic Stippling 1+; Basophils # (auto) 0.05 K/uL (0-0.2); Basophils % (auto) 0.3 %; Eosinophils # (auto) 0.26 K/uL (0-0.5); Eosinophils % (auto) 1.3 %; Giant Platelets 1+; Immature Granulocytes # (auto) 1.11 K/uL (0.00-0.02); Immature Granulocytes % (auto) 5.7 %; Lymphocytes # (auto) 1.59 K/uL (1.2-3.4); Lymphocytes % (auto) 8.1 %; Monocytes # (auto) 0.05 K/uL (0.11-0.59); Monocytes % (auto) 0.3 %; Neutrophils # (auto) 16.46 K/uL (1.4-6.5); Neutrophils % (auto) 84.3 %; Polychromasia 1+; Schistocytes 1+; Toxic Vacuolation 1+
[2020-10-19 06:54] LABS: BUN Creatinine Ratio 9.9 (10-20); Calcium 7.5 mg/dl (8.5-10.1); Creatinine Clr Calc Pharmacy 12.6 ml/min; Est GFR (African American) 16.2 ml/min; Est GFR (Non-African American) 13.9 ml/min; Magnesium 1.7 mg/dl (1.8-2.4); Phosphorus 5.2 mg/dl (2.5-4.9); Potassium 4.7 mmol/L (3.5-5.1)
--- NOTE | 2020-10-19 07:37 | XRay Report ---
XR chest 1V portable HISTORY: 75 years-old Female covid pneumonia acute shortness of breath with pneumonia COMPARISON: Chest radiograph 10/18/2020 TECHNIQUE: Portable AP view of the chest FINDINGS: Endotracheal tube overlies the midline, 3.8 cm superior to the sherie. Right IJ central venous cathet er is unchanged. Enteric tube courses below the diaphragm outside the [id number]. Cardiomegaly. No pneumothorax or large pleural effusion. Multifocal bilateral airspace opacities are redemonstrated a nd are generally unchanged from comparison. No acute fracture. IMPRESSION: 1. Lines and tubes as above. 2. Extensive multifocal airspace opacities suggestive of pneumonia are generally unchanged. ACT 112: Negative or not required by law. The above report was generated using voice recognition software. It may contain grammatical, syntax o r spelling errors. Electronically signed by: Tristan Haider M.D. 10/19/2020 7:36 AM
--- NOTE | 2020-10-19 09:35 | Nephrology Progress Note ---
Date of Service October 19, 2020 Assessment & Plan (1) Acute kidney injury: Plan: * Baseline creatinine <1 mg/dL * LENNOX c/w ATN * US without obstruction * Urinalysis 10/15 negative for casts * HD performed 10/15, 10/17 and 10/18. Patient remains volume +. CXR this am shows mild apical clearing following HD w/ UF. Patient requires Levophed for BP support * Patient remains anuric. Electrolyte balance is acceptable. Oxygenation unchanged despite 2 L UF yesterday. Hold HD today. Continue supportive care. Will reassess in am (2) Pneumonia due to 2019 novel coronavirus: Plan: * Received Toclizumab 10/13/20 * Remains on Dexamethasone 6 mg IV daily * Remdesivir held due to LENNOX, elevated LFT's * Prognosis guarded - COVID pneumonia requiring mechanical ventilation, pressor support, LENNOX requiring HD (3) Hypertension: Plan: * SBP has been labile 80 - 100 mm Hg * Remains on Levophed gtt Admission and Anticipated Discharge Date Admission Date: October 10, 2020 Subjective Mrs. Suero remains on respiratory isolation due to COVID pneumonia. She is sedated, mechanically ventilated and requires Levophed for pressor support. 3rd HD was performed yesterday for 2000 cc UF. Remains on 60% FiO2. Levophed titrated during HD but staff development coordinator has hiwot able to gradually taper overnight. CXR with mild apical clearing. Review of Systems Review of Systems: Unobtainable due to endotracheal tube Results & Data ([facility]) Vital Signs (Past 12 Hours) Vital Signs Temp Pulse Resp BP Pulse Ox 10/19/20 08:00 63 10/19/20 07:25 65 27 H 99 10/19/20 05:59 36.7 C 64 101/42 L 100 10/19/20 05:22 68 25 H 92 10/19/20 05:14 36.8 C 65 98/51 L 95 10/19/20 04:29 36.9 C 66 98/39 L 96 10/19/20 03:29 37.0 C 65 107/43 L 92 10/19/20 02:29 37.1 C 62 98/44 L 92 10/19/20 01:38 65 25 H 98 10/19/20 01:29 37.1 C 62 131/48 L 98 10/19/20 00:29 37.1 C 74 81/32 L 97 10/19/20 00:00 63 10/18/20 23:29 37.1 C 64 116/38 L 96 10/18/20 22:29 37.1 C 66 167/57 H 95 10/18/20 22:14 37.1 C 61 137/46 L 96 10/18/20 22:12 61 24 97 10/18/20 21:59 37.1 C 60 145/40 H 96 10/18/20 21:44 37.1 C 61 129/51 L 93 10/18/20 21:29 37.1 C 61 130/51 L 96 Laboratory Results Laboratory Tests 10/19/20 10/19/20 10/19/20 05:30 05:57 05:57 WBC 19.52 H Hgb 8.5 L Hct 26.1 L Plt Count 141 POC pH 7.28 L POC pCO2 46 POC HCO3 22 POC ABG O2 Sat 79.0 L Sodium 134 L Potassium 4.7 Chloride 105 Carbon Dioxide 21 BUN 31 H Creatinine 3.15 H Glucose 82 PG Care Time/CCT Total # of Minutes Spent Total Time Spent with Patient: Total time spent is greater than 50% in coordination of care (as documented) at patient's floor/unit and/or counseling patient: Coding Level of Care Code 29125 Subseq Hosp Care Lvl 3 Diagnoses Acute kidney injury N17.9 Pneumonia due to 2019 novel coronavirus U07.1; J12.82 Hypertension I10
[2020-10-19] MEDS ORDERED: SODIUM BICARBONATE IV ONE (10:00)
[2020-10-19] MEDS ORDERED: DEXTROSE 5% IV ONE (10:00)
[2020-10-19] MEDS: NOREPINEPHRINE/D5W 8 MG/508 ML BAG IV SCH (10:23)
[2020-10-19] MEDS: fentaNYL DRIP 1,250 MCG/250 ML BAG IV SCH ×2 (10:24→21:19)
[2020-10-19] MEDS: dexAMETHasone 6 MG in SYRINGE 0 ML IV SCH (10:35)
[2020-10-19] MEDS: ESCITALOPRAM OXALATE ORAL SOLN 20 MG/20 ML UDP PO SCH (10:35)
[2020-10-19] MEDS: ASPIRIN 81 MG CHEW NG SCH (10:35)
[2020-10-19] MEDS: PANTOprazole 40 MG in SYRINGE 0 ML IV SCH (10:35)
--- NOTE | 2020-10-19 14:57 | Critical Care Progress Note ---
Date of Service October 19, 2020 Assessment & Plan (1) Pneumonia due to 2019 novel coronavirus: (2) Bacterial pneumonia: (3) Elevated liver enzymes: (4) Acute respiratory failure with hypoxemia: (5) Elevated troponin: (6) Acute kidney injury: (7) Fecal occult blood test positive: Plan: Impression: 75-year-old female admitted with COVID-19 pneumonia. Course has been complicated by acute delirium requiring intubation for airway protection as well as acute renal failure requiring initiation of hemodialysis. 24-hour events: Patient tolerated hemodialysis yesterday with ultrafiltration of 2 L. Her pressors were transiently increased during dialysis however they have been able to be weaned down gradually overnight. She is also had some decrease in her oxygen requirement and is now down to an FiO2 between 0.5 and 0.6. She remains sedated. Recommendations: 1. Neurologic: Acute delirium. Unclear etiology but possibly secondary to Covid infection with superimposed metabolic abnormalities. She is currently sedated on propofol and fentanyl. Her exam previously was nonfocal so I think imaging and LP would be of limited utility at this point time. Continue supportive care. Daily sedation break as tolerated. Will check triglycerides in AM - if elevated may need to transition to precedex or BZD. 2. Cardiovascular: Hypotension: The patient appears to be adequately volume resuscitated. She is over 11 L positive since presentation. Continue pressors - wean as tolerated. She is already on dexamethasone which should cover for relative adrenal insufficiency so little utility in random cortisol. 3. Pulmonary: Continue ARDSnet targets. Most recent AB.28/46/49 - combined resp and metabolic acidosis. Tolerating resp acidosis to prevent barotrauma. D#4 MV. Consider trach if unable to wean around day 7-10. will discuss with family today. 4. ID: Completed 5 days of azithromycin and Rocephin. Received Tocilizumab. Stopped remdesivir due to bradycardia - unlikely to help at this point as viral replication not an issue. White count is elevated however the patient not been febrile. Recheck cultures. Line sites look OK. 5. Renal: Likely ATN - multifactorial. Pulmonary status would likely improve with continued ultrafiltration. discussed with Nephrology - hold on HD today and reassess in AM. Additional bicarb today for metabolic acidosis. 6. GI: No evidence of active ongoing GI bleeding. Continue PPI. Trickle tube feeds, holding advancing given pressor requirements 7. Endocrine: On dexamethasone. Glycemic control per protocol 8. Heme-onc: Stable anemia. Continue to trend. No evidence of active ongoing bleeding. No indication for transfusion currently. Overall prognosis is guarded. Palliative care to set up family conference call today. Will make myself available to update them. Patient discussed on multidisciplinary rounds and with critical care bedside nurse. A total of 65 minutes critical care time was spent in evaluation management and coordination of care of this critically ill patient with multiple life-threatening issues Admission and Anticipated Discharge Date Admission Date: October 10, 2020 Subjective intubated and sedated Review of Systems Review of Systems: Unobtainable due to endotracheal tube Physical Exam Constitutional: + mechanically ventilated and + overweight Neck: trachea midline, no thyromegaly Respiratory: normal respiratory effort, lungs clear to auscultation no respiratory distress Auscultation: + rales and + wheezes Cardiovascular: RRR, no murmur, no edema Gastrointestinal (Abdomen): normal bowel sounds, soft, nontender, no hepatosplenomegaly Musculoskeletal: Extremities: extremities normal to inspection Skin: no rashes, warm and dry Lymphatic: no cervical lymphadenopathy Results & Data Results & Data ([facility]) Vital Signs (Past 12 Hours) Vital Signs Temp Pulse Resp BP Pulse Ox 10/19/20 12:00 59 L 27 H 97 10/19/20 10:14 36.5 C 57 L 98/40 L 100 10/19/20 08:14 36.5 C 66 96/36 L 98 10/19/20 08:00 63 10/19/20 07:25 65 27 H 99 10/19/20 06:14 36.7 C 64 106/46 L 100 10/19/20 05:59 36.7 C 64 101/42 L 100 10/19/20 05:22 68 25 H 92 10/19/20 05:14 36.8 C 65 98/51 L 95 10/19/20 04:29 36.9 C 66 98/39 L 96 10/19/20 03:29 37.0 C 65 107/43 L 92 Critical Care Results & Data Vital Signs (Past 12 Hours) Vital Signs Temp Pulse Resp BP Pulse Ox 10/19/20 12:00 59 L 27 H 97 10/19/20 10:14 36.5 C 57 L 98/40 L 100 10/19/20 08:14 36.5 C 66 96/36 L 98 10/19/20 08:00 63 10/19/20 07:25 65 27 H 99 10/19/20 06:14 36.7 C 64 106/46 L 100 10/19/20 05:59 36.7 C 64 101/42 L 100 10/19/20 05:22 68 25 H 92 10/19/20 05:14 36.8 C 65 98/51 L 95 10/19/20 04:29 36.9 C 66 98/39 L 96 10/19/20 03:29 37.0 C 65 107/43 L 92 Lab & Micro Results (Past 24 Hours) RBC 3.02 M/uL (4.2-5.4) L 10/19/20 WBC 19.52 K/uL (4.8-10.8) H 10/19/20 Hgb 8.5 g/dL (12.0-16.0) L 10/19/20 Hct 26.1 % (37-47) L 10/19/20 MCV 86.4 fL (80-100) 10/19/20 MCH 28.1 pg (25-34) 10/19/20 MCHC 32.6 g/dL (32-36) 10/19/20 RDW Standard Deviation 54.2 fL (36.4-46.3) H 10/19/20 RDW Coefficient of Variation 17.5 % (11.5-14.5) H 10/19/20 Plt Count 141 K/uL (130-400) 10/19/20 MPV 10.5 fL (7.4-10.4) H 10/19/20 Nucleated Red Blood Cells % (auto) 2.5 % 10/19/20 Nucleated RBC Absolute Count (auto) 0.49 K/uL (0-0) H 10/19/20 Neutrophils (%) (Auto) 84.3 % 10/19/20 Lymphocytes (%) (Auto) 8.1 % 10/19/20 Monocytes # (Auto) 0.05 K/uL (0.11-0.59) L 10/19/20 Eosinophils # (Auto) 0.26 K/uL (0-0.5) 10/19/20 Immature Granulocyte % (Auto) 5.7 % 10/19/20 Neutrophils # (Auto) 16.46 K/uL (1.4-6.5) H 10/19/20 Lymphocytes # (Auto) 1.59 K/uL (1.2-3.4) 10/19/20 Monocytes # (Auto) 0.05 K/uL (0.11-0.59) L 10/19/20 Eosinophils # (Auto) 0.26 K/uL (0-0.5) 10/19/20 Basophils # (Auto) 0.05 K/uL (0-0.2) 10/19/20 Immature Granulocyte # (Auto) 1.11 K/uL (0.00-0.02) H 10/19/20 Giant Platelets 1+ 10/19/20 Polychromasia 1+ 10/19/20 Basophilic Stippling 1+ 10/19/20 Toxic Vacuolation 1+ 10/19/20 Schistocytes 1+ 10/19/20 Na 134 mmol/L (136-145) L 10/19/20 K 4.7 mmol/L (3.5-5.1) 10/19/20 Cl 105 mmol/L (98-107) 10/19/20 CO2 21 mmol/L (21-32) 10/19/20 Anion Gap 8.0 (3-11) 10/19/20 BUN 31 mg/dl (7-18) H 10/19/20 Creatinine 3.15 mg/dl (0.6-1.2) H 10/19/20 Estimated GFR ( Amer) 16.2 ml/min 10/19/20 Estimated GFR (Non-Af Amer) 13.9 ml/min 10/19/20 BUN/Creatinine Ratio 9.9 (10-20) L 10/19/20 Glu 82 mg/dl (70-99) 10/19/20 Ca 7.5 mg/dl (8.5-10.1) L 10/19/20 Phosphorus Level 5.2 mg/dl (2.5-4.9) H 10/19/20 AST 47 U/L (15-37) H 10/19/20 ALT 69 U/L (12-78) 10/19/20 Mg 1.7 mg/dl (1.8-2.4) L 10/19/20 05:57 10/19/20 Calcium Level 7.5 mg/dl (8.5-10.1) L 10/19/20 05:57 10/19/20 Brandon Test NA 10/19/20 05:30 10/19/20 Diagnostic Findings (Past 24 Hours) Chest X-Ray 10/19/20 07:00 XR chest 1V portable HISTORY: 75 years-old Female covid pneumonia acute shortness of breath with pneumonia COMPARISON: Chest radiograph 10/18/2020 TECHNIQUE: Portable AP view of the chest FINDINGS: Endotracheal tube overlies the midline, 3.8 cm superior to the sherie. Right IJ central venous catheter is unchanged. Enteric tube courses below the diaphragm outside the [id number]. Cardiomegaly. No pneumothorax or large pleural effusion. Multifocal bilateral airspace opacities are redemonstrated and are generally unchanged from comparison. No acute fracture. IMPRESSION: 1. Lines and tubes as above. 2. Extensive multifocal airspace opacities suggestive of pneumonia are generally unchanged. ACT 112: Negative or not required by law. The above report was generated using voice recognition software. It may contain grammatical, syntax or spelling errors. Electronically signed by: Tristan Haider M.D. 10/19/2020 7:36 AM I & O Totals 24 Hours 10/18/20 10/19/20 10/20/20 06:59 06:59 06:59 Intake Total 2013.097 / 2013.7 2057.467 / 2057.467 233.167 / 233.167 Output Total 1000 / 1000 0 / 0 5 / 5 Balance 1014.097 / 4093.001 4277.467 / 2058.467 228.167 / 228.167 Cumulative 10/10/20 18:21 thru 10/19/20 12:00 Intake Total 56683.653 Output Total 4345 Balance 86823.653 RT Ventilator Mngmt (Last Documented) Ventilator Ordered Settings Ventilator Support Mode Assist Control 10/19/20 12:00 Respiratory Rate 27 10/19/20 12:00 Ventilator Tidal Volume 350 10/19/20 12:00 Setting Minute Ventilation 9.2 10/19/20 12:00 Ventilator Positive Pressure 8 10/17/20 16:00 Support Setting Positive End Expiratory 12 10/19/20 12:00 Pressure Fraction of Inspired Oxygen 70 10/19/20 12:00 Peak Inspiratory Flow 50 10/19/20 12:00 Machine Comment SpO2 100% on FiO2 70%. Weaned 10/19/20 07:25 FiO2 to 55% Ventilator - PT Measurements Respiratory Rate 27 Exhaled Tidal Volume 340 Minute Ventilation 9.2 Peak Inspiratory Airway 39 Pressure Mean Airway Pressure 20 Plateau Pressure 37 Respiratory Cycle Inspiratory: 1:3.1 Expiratory Ratio Inspiratory Phase Time 0.56 End-Tidal CO2 31 Static Lung Compliance 13.60 Dynamic Lung Compliance 12.59 Normal Static Lung Compliance 43.00 Patient Measurements Comment NK13 ventilator found to have alarm notification for preventative maintenance. Pulled machine and replaced with NK7. Coding Level of Care Code Critical Care 1st 30-74 mins Diagnoses Pneumonia due to 2019 novel coronavirus U07.1; J12.82 Bacterial pneumonia J15.9 Elevated liver enzymes R74.8 Acute respiratory failure with hypoxemia J96.01 Elevated troponin R77.8 Acute kidney injury N17.9 Fecal occult blood test positive R19.5 Time Spent (min) 65
[2020-10-19] MEDS: PEPTAMEN INTENSE VHP 1.0 CAL 1,000 ML BAG OG SCH (15:47)
--- NOTE | 2020-10-19 16:06 | Palliative Care Progress Note ---
Date of Service October 19, 2020 Assessment & Plan (1) Palliative care encounter: Plan: I met with Mr. Suero and with Zenobia's sister, Aracely, on speaker phone as well. Updated on today's status. 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 MARISELA confirms that her living will indicates DNR if she were in a terminal condition. They are all in agreement with current DNR status but wish to continue current level of care on a day to day basis. They did indicate that they would not want to escalate care. However, Aracely asked again about transfer to [place] for CRRT. We discussed that since she is tolerating dialysis here and given her wishes. Plan would be to remain here. MARISELA agrees with this. (2) Acute respiratory failure with hypoxemia: (3) Pneumonia due to 2019 novel coronavirus: (4) Acute kidney injury: (5) Severe sepsis: Admission and Anticipated Discharge Date Admission Date: October 10, 2020 Subjective Sedated on vent. FiO2 at 55%. Weaning levophed. Tolerated dialysis for 2L fluid removal yesterday. Review of Systems Review of Systems: Unobtainable due to endotracheal tube and Unobtainable due to reduced consciousness Physical Exam Constitutional: comfortable Respiratory: ventilated Cardiovascular: Rate/Rhythm: regular rate and regular rhythm Neurologic: + obtunded Results & Data ([facility]) Vital Signs (Past 12 Hours) Vital Signs Temp Pulse Resp BP Pulse Ox 10/19/20 15:08 54 L 26 H 99 10/19/20 12:00 59 L 27 H 97 10/19/20 10:14 97.7 F 57 L 98/40 L 100 10/19/20 08:14 97.7 F 66 96/36 L 98 10/19/20 08:00 63 10/19/20 07:25 65 27 H 99 10/19/20 06:14 98.1 F 64 106/46 L 100 10/19/20 05:59 98.1 F 64 101/42 L 100 10/19/20 05:22 68 25 H 92 10/19/20 05:14 98.2 F 65 98/51 L 95 10/19/20 04:29 98.4 F 66 98/39 L 96 PG Care Time/CCT Total # of Minutes Spent Total Time Spent: 30 Total Time Spent with Patient: Total time spent is greater than 50% in coordination of care (as documented) at patient's floor/unit and/or counseling patient: family education and support, goals of care Coding Level of Care Code 05317 Subseq Hosp Care Lvl 2 Diagnoses Palliative care encounter Z51.5 Acute respiratory failure with hypoxemia J96.01 Pneumonia due to 2019 novel coronavirus U07.1; J12.82 Acute kidney injury N17.9 Severe sepsis A41.9; R65.20
--- NOTE | 2020-10-19 22:03 | Hospitalist Progress Note ---
Date of Service October 19, 2020 Assessment & Plan (1) Acute respiratory failure with hypoxemia: Plan: 2nd to severe COVID-19 pneumonia. Suspect some element of volume overload component from her acute renal failure as well. s/p HD for such. Respiratory status largely unchanged. Date of intubation - 10/16/20, thus day #4 of ventilator days. s/p 5-day course of IV antibiotics earlier this stay to cover any superimposed bacterial process. (2) Severe sepsis: Plan: 2nd to COVID-19 pneumonia. Now with hypotension requiring pressors (levophed). Continue such. (3) Acute kidney injury: Plan: ATN due to COVID-19 (and/or remdesivir) with resulting severe acute renal failure. Remains anuric. Temporary HD catheter placed 10/15. Attempts at HD 10/15 unsuccessful. s/p HD 10/17 and 10/18. No dialysis today. Baseline Cr 0.9. Daily BMP. Appreciate nephrology assistance. (4) Pneumonia due to 2019 novel coronavirus: Plan: Critically ill due to such. Day #10 of dexamethasone 6mg IV daily. Remdesivir - first dose given on 10/10. Received dose #2 on 10/11. Due to development of LENNOX and transaminitis the remdesivir was stopped after 2nd dose. s/p Tocilizumab - 10/13/20. s/p full 5-day course of rocephin/zithromax. s/p intubation on 10/16/20 with mechanical ventilation since then. Remains critically ill. (5) Bacterial pneumonia: Plan: s/p ceftriaxone + azithromycin x 5 days earlier this stay. Most recent procal wnl. Now off IV abx. (6) Hypotension: Plan: 2nd to severe sepsis, COVID-19, medications (propofol), etc. Continue levophed as needed. (7) Elevated troponin: Plan: Peak trop 0.154. 2nd to myocardial demand ischemia. (8) Elevated d-dimer: Plan: 4890 on admission (10/10/20). LE dopplers negative for DVT b/l. Unable to perform CT to r/o PE due to LENNOX. (9) Elevated liver enzymes: Plan: transaminitis 2nd to COVID-19. ast/alt again improved today. (10) Hypokalemia: Plan: Resolved (11) Metabolic acidosis: Plan: 2nd to acute renal failure and severe sepsis. ongoing. defer Rx to ICU team. (12) Fecal occult blood test positive: Plan: Melanic stools on second day of admission. Cont PPI for GI prophylaxis. Hb today acceptable. (13) Hyponatremia: Plan: Mild 134 2nd to ARF Plan: appreciate ICU and palliative care assistance Admission and Anticipated Discharge Date Admission Date: October 10, 2020 Subjective events of last 24 hours noted. spoke with nursing staff - patient remains anuric. family conference held with pt's and pt's sister along with palliative care. pt remains DNR - ongoing care desired by family - but no transfer planned at this time. no hemodialysis today. Physical Exam Physical Exam: bedside visit and physical exam deferred Results & Data Results & Data ([facility]) Vital Signs (Past 12 Hours) Vital Signs Temp Pulse Resp BP Pulse Ox 10/19/20 20:14 36.7 C 60 117/35 L 100 10/19/20 20:00 59 L 154/53 H 10/19/20 19:44 36.7 C 57 L 108/43 L 99 10/19/20 19:14 36.7 C 61 102/45 L 98 10/19/20 16:00 56 L 10/19/20 15:08 54 L 26 H 99 10/19/20 12:00 59 L 27 H 97 10/19/20 10:14 36.5 C 57 L 98/40 L 100 Laboratory Results Laboratory Results - last 24 hr 10/19/20 10/19/20 10/19/20 05:30 05:36 05:57 WBC 19.52 H RBC 3.02 L Hgb 8.5 L Hct 26.1 L MCV 86.4 MCH 28.1 MCHC 32.6 RDW Std Deviation 54.2 H RDW Coeff of Roxanna 17.5 H Plt Count 141 MPV 10.5 H Immature Gran % (Auto) 5.7 Neut % (Auto) 84.3 Lymph % (Auto) 8.1 [place] % (Auto) 0.3 Eos % (Auto) 1.3 Baso % (Auto) 0.3 Neut # (Auto) 16.46 H Lymph # (Auto) 1.59 [place] # (Auto) 0.05 L Eos # (Auto) 0.26 Baso # (Auto) 0.05 Immature Gran # (Auto) 1.11 H Absolute Nucleated RBC 0.49 H Nucleated RBC % (auto) 2.5 Toxic Vacuolation 1+ Giant Platelets 1+ Polychromasia 1+ Basophilic Stippling 1+ Schistocytes 1+ Sample Site Art Line POC pH 7.28 L POC pCO2 46 POC pO2 49 L POC HCO3 22 POC Total CO2 23 L POC Base Excess -5.0 POC ABG O2 Sat 79.0 L Rbandon Test NA O2 Delivery Device Ventilator POC O2 Rate 22 Minute Ventilation 7.4 POC FiO2 50 Tidal Volume 350 PEEP 12 Sodium Potassium Chloride Carbon Dioxide Anion Gap BUN Creatinine Est Cr Clr Drug Dosing Est GFR ( Amer) Est GFR (Non-Af Amer) BUN/Creatinine Ratio Glucose POC Glucose POC Glucose (other) 95 Calcium Phosphorus Magnesium AST ALT Specimen Hemolysis 10/19/20 10/19/20 10/19/20 05:57 11:54 17:32 WBC RBC Hgb Hct MCV MCH MCHC RDW Std Deviation RDW Coeff of Roxanna Plt Count MPV Immature Gran % (Auto) Neut % (Auto) Lymph % (Auto) [place] % (Auto) Eos % (Auto) Baso % (Auto) Neut # (Auto) Lymph # (Auto) [place] # (Auto) Eos # (Auto) Baso # (Auto) Immature Gran # (Auto) Absolute Nucleated RBC Nucleated RBC % (auto) Toxic Vacuolation Giant Platelets Polychromasia Basophilic Stippling Schistocytes Sample Site POC pH POC pCO2 POC pO2 POC HCO3 POC Total CO2 POC Base Excess POC ABG O2 Sat Brandon Test O2 Delivery Device POC O2 Rate Minute Ventilation POC FiO2 Tidal Volume PEEP Sodium 134 L Potassium 4.7 Chloride 105 Carbon Dioxide 21 Anion Gap 8.0 BUN 31 H Creatinine 3.15 H Est Cr Clr Drug Dosing 12.6 Est GFR ( Amer) 16.2 Est GFR (Non-Af Amer) 13.9 BUN/Creatinine Ratio 9.9 L Glucose 82 POC Glucose 82 112 H POC Glucose (other) Calcium 7.5 L Phosphorus 5.2 H Magnesium 1.7 L AST 47 H ALT 69 Specimen Hemolysis Diagnostic Findings Chest X-Ray 10/19/20 07:00 XR chest 1V portable HISTORY: 75 years-old Female covid pneumonia acute shortness of breath with pneumonia COMPARISON: Chest radiograph 10/18/2020 TECHNIQUE: Portable AP view of the chest FINDINGS: Endotracheal tube overlies the midline, 3.8 cm superior to the sherie. Right IJ central venous catheter is unchanged. Enteric tube courses below the diaphragm outside the [id number]. Cardiomegaly. No pneumothorax or large pleural effusion. Multifocal bilateral airspace opacities are redemonstrated and are generally unchanged from comparison. No acute fracture. IMPRESSION: 1. Lines and tubes as above. 2. Extensive multifocal airspace opacities suggestive of pneumonia are generally unchanged. ACT 112: Negative or not required by law. The above report was generated using voice recognition software. It may contain grammatical, syntax or spelling errors. Electronically signed by: Tristan Haider M.D. 10/19/2020 7:36 AM PG Care Time/CCT Total # of Minutes Spent Total Time Spent with Patient: Total time spent is greater than 50% in coordination of care (as documented) at patient's floor/unit and/or counseling patient: Coding Level of Care Code None Diagnoses Acute respiratory failure with hypoxemia J96.01 Severe sepsis A41.9; R65.20 Acute kidney injury N17.9 Pneumonia due to 2019 novel coronavirus U07.1; J12.82 Bacterial pneumonia J15.9 Hypotension I95.9 Elevated troponin R77.8 Elevated d-dimer R79.89 Elevated liver enzymes R74.8 Hypokalemia E87.6 Metabolic acidosis E87.2 Fecal occult blood test positive R19.5 Hyponatremia E87.1
[2020-10-20] MEDS: INSULIN ASPART 100 UNITS/ML 3 ML PEN SC SCH ×4 (00:21→17:46)
[2020-10-20] MEDS: TUBE FEEDING WATER FLUSH GT SCH ×6 (00:29→20:30)
[2020-10-20] MEDS: propofoL 1,000 MG/100 ML VIAL IV SCH (03:57)
[2020-10-20 05:03] LABS: iSTAT Art Bld Gas pCO2 Correct 42 mmHg (35-46); iSTAT Art Bld Gas pH Corrected 7.286 (7.35-7.45); iSTAT Arterial Blood Gas HCO3 20 meg/L (19-24); iSTAT Arterial Blood Gas pCO2 43 mmHg (35-46); iSTAT Arterial Blood Gas pH 7.27 (7.35-7.45); iSTAT Arterial Blood Gas pO2 62 mmHg (80-95); iSTAT Arterial Blood Gas pO2 C 59; iSTAT Carbon Dioxide 21 mmol/L (24-31); iSTAT FiO2 45 %; iSTAT Hematocrit 24 % (37-47); iSTAT Hemoglobin 8.2 g/dl (12.0-16.0); iSTAT Potassium 4.8 mmol/L (3.3-5.0); iSTAT Site Art Line; iSTAT Sodium 129 mmol/L (135-144)
[2020-10-20 05:22] LABS: Hematocrit (blood only) 25.4 % (37-47); Hemoglobin 8.5 g/dL (12.0-16.0); Mean Corpuscular Hemoglobin 28.7 pg (25-34); Mean Corpuscular Hgb Conc 33.5 g/dL (32-36); Mean Corpuscular Volume 85.8 fL (80-100); Mean Platelet Volume 11.1 fL (7.4-10.4); Nucleated RBC # (auto) 0.35 K/uL (0-0); Nucleated RBC % (auto) 1.8 %; Platelet Count 153 K/uL (130-400); RDW Coefficient of Variation 17.1 % (11.5-14.5); RDW Standard Deviation 52.4 fL (36.4-46.3); Red Blood Count 2.96 M/uL (4.2-5.4); White Blood Count 19.43 K/uL (4.8-10.8)
[2020-10-20 05:46] LABS: Albumin Level 1.8 gm/dl (3.4-5.0); BUN Creatinine Ratio 11.2 (10-20); C Reactive Protein 10.5 mg/dl (0-0.29); Calcium 7.8 mg/dl (8.5-10.1); Creatinine Clr Calc Pharmacy 9.1 ml/min; Est GFR (Non-African American) 9.5 ml/min; Magnesium 1.8 mg/dl (1.8-2.4); Potassium 4.8 mmol/L (3.5-5.1)
[2020-10-20 05:58] LABS: Albumin Globulin Ratio 0.5 (0.9-2); Bilirubin,Total 0.3 mg/dl (0.2-1); Globulin 3.7 gm/dl (2.5-4.0); Phosphorus 7.4 mg/dl (2.5-4.9); Total Protein 5.5 gm/dl (6.4-8.2)
[2020-10-20] MEDS: HEPARIN SOD 5,000 UNIT/0.5 ML VIAL SQ SCH ×3 (06:17→22:00)
[2020-10-20] MEDS: INSULIN GLARGINE SOLOSTAR 100 UNITS/ML 3 ML PEN SC SCH ×2 (06:18→17:47)
--- NOTE | 2020-10-20 08:31 | Critical Care Progress Note ---
Date of Service October 20, 2020 Assessment & Plan (1) Pneumonia due to 2019 novel coronavirus: (2) Bacterial pneumonia: (3) Elevated liver enzymes: (4) Acute respiratory failure with hypoxemia: (5) Elevated troponin: (6) Acute kidney injury: (7) Fecal occult blood test positive: Plan: Impression: 75-year-old female admitted with COVID-19 pneumonia. Course has been complicated by acute delirium requiring intubation for airway protection as well as acute renal failure requiring initiation of hemodialysis. 24-hour events: Able to make some progress weaning her pressors as well as her FiO2. She remains sedated. Palliative care consultations were held with the patient's spouse and twin sister yesterday. Please refer to palliative care notes. Remains essentially anuric. Recommendations: 1. Neurologic: Acute delirium. Unclear etiology but possibly secondary to Covid infection with superimposed metabolic abnormalities. She is currently sedated on propofol and fentanyl. Her exam previously was nonfocal so I think imaging and LP would be of limited utility at this point time. Continue supportive care. Daily sedation break as tolerated. Triglycerides are elevated. Transition from propofol to Versed infusion acknowledging that this may worsen delirium. She is not really a candidate for Precedex given her hypotension. 2. Cardiovascular: Hypotension: Improved today with weaning pressor requirements. Continue to work on weaning as tolerated. 3. Pulmonary: Continue ARDSnet targets. Most recent AB./ - persistent metabolic acidosis likely secondary to acute renal failure. Day #5 mechanical ventilation. Plateau pressures are currently running in the 20-30 range. If they continue to increase, may drop tidal volume down to 4 cc/kg predicted body weight. X-ray today slightly improved. 4. ID: Completed 5 days of azithromycin and Rocephin. Received Tocilizumab. Stopped remdesivir due to bradycardia - unlikely to help at this point as viral replication not an issue. White count is elevated however the patient not been febrile. Recheck cultures and PCT. Line sites look OK. 5. Renal: Likely ATN - multifactorial. Phosphate is elevated. Will discuss with nephrology potential addition of phosphate binder. Defer to nephrology dialysis today. 6. GI: No evidence of active ongoing GI bleeding. Continue PPI. Trickle tube feeds, holding advancing given pressor requirements 7. Endocrine: On dexamethasone. Glycemic control per protocol 8. Heme-onc: Stable anemia. Continue to trend. No evidence of active ongoing bleeding. No indication for transfusion currently. Overall prognosis is guarded. Reviewed palliative care note. Plan to continue current care but not escalate. DNR/DNI status. Remains critically ill but has had some mild stabilization of the last 24 hours. Will update by phone today Patient discussed on multidisciplinary rounds and with critical care bedside nurse. A total of 47 minutes critical care time was spent in evaluation management and coordination of care of this critically ill patient with multiple life-threatening issues Admission and Anticipated Discharge Date Admission Date: October 10, 2020 Subjective intubated and sedated. Review of Systems Review of Systems: Unobtainable due to endotracheal tube Physical Exam Constitutional: + mechanically ventilated and + overweight Neck: trachea midline, no thyromegaly Respiratory: normal respiratory effort, lungs clear to auscultation no respiratory distress Auscultation: + rales and + wheezes Cardiovascular: RRR, no murmur, no edema Gastrointestinal (Abdomen): normal bowel sounds, soft, nontender, no hepatosplenomegaly Musculoskeletal: Extremities: extremities normal to inspection Skin: no rashes, warm and dry Lymphatic: no cervical lymphadenopathy Results & Data Results & Data ([facility]) Vital Signs (Past 12 Hours) Vital Signs Temp Pulse Resp BP Pulse Ox 10/20/20 07:36 66 27 H 96 10/20/20 06:29 36.0 C L 69 107/40 L 97 10/20/20 04:59 36.2 C L 66 110/47 L 93 10/20/20 04:29 36.1 C L 65 92/39 L 95 10/20/20 04:00 69 133/50 L 10/20/20 03:59 36.0 C L 64 107/40 L 93 10/20/20 03:29 36.1 C L 67 111/34 L 96 10/20/20 02:55 64 27 H 97 10/20/20 02:32 36.4 C L 59 L 81/32 L 96 10/20/20 02:14 36.4 C L 55 L 99/47 L 100 10/20/20 01:44 36.5 C 55 L 109/46 L 100 10/20/20 01:14 36.5 C 57 L 89/42 L 100 10/20/20 01:00 54 L 26 H 100 10/20/20 00:44 36.5 C 58 L 95/35 L 100 10/20/20 00:14 36.5 C 56 L 99/41 L 100 10/20/20 00:00 54 L 133/50 L 10/19/20 23:44 36.5 C 54 L 117/50 L 100 10/19/20 23:14 36.6 C 56 L 119/45 L 100 10/19/20 22:44 36.6 C 53 L 117/43 L 100 10/19/20 22:14 36.6 C 55 L 119/42 L 100 10/19/20 21:44 36.6 C 58 L 113/39 L 100 10/19/20 21:14 36.6 C 57 L 113/48 L 100 10/19/20 20:44 36.6 C 57 L 109/44 L 97 Critical Care Results & Data Vital Signs (Past 12 Hours) Vital Signs Temp Pulse Resp BP Pulse Ox 10/20/20 07:36 66 27 H 96 10/20/20 06:29 36.0 C L 69 107/40 L 97 10/20/20 04:59 36.2 C L 66 110/47 L 93 10/20/20 04:29 36.1 C L 65 92/39 L 95 10/20/20 04:00 69 133/50 L 10/20/20 03:59 36.0 C L 64 107/40 L 93 10/20/20 03:29 36.1 C L 67 111/34 L 96 10/20/20 02:55 64 27 H 97 10/20/20 02:32 36.4 C L 59 L 81/32 L 96 10/20/20 02:14 36.4 C L 55 L 99/47 L 100 10/20/20 01:44 36.5 C 55 L 109/46 L 100 10/20/20 01:14 36.5 C 57 L 89/42 L 100 10/20/20 01:00 54 L 26 H 100 10/20/20 00:44 36.5 C 58 L 95/35 L 100 10/20/20 00:14 36.5 C 56 L 99/41 L 100 10/20/20 00:00 54 L 133/50 L 10/19/20 23:44 36.5 C 54 L 117/50 L 100 10/19/20 23:14 36.6 C 56 L 119/45 L 100 10/19/20 22:44 36.6 C 53 L 117/43 L 100 10/19/20 22:14 36.6 C 55 L 119/42 L 100 10/19/20 21:44 36.6 C 58 L 113/39 L 100 10/19/20 21:14 36.6 C 57 L 113/48 L 100 10/19/20 20:44 36.6 C 57 L 109/44 L 97 Lab & Micro Results (Past 24 Hours) RBC 2.96 M/uL (4.2-5.4) L 10/20/20 WBC 19.43 K/uL (4.8-10.8) H 10/20/20 Hgb 8.5 g/dL (12.0-16.0) L 10/20/20 Hct 25.4 % (37-47) L 10/20/20 MCV 85.8 fL (80-100) 10/20/20 MCH 28.7 pg (25-34) 10/20/20 MCHC 33.5 g/dL (32-36) 10/20/20 RDW Standard Deviation 52.4 fL (36.4-46.3) H 10/20/20 RDW Coefficient of Variation 17.1 % (11.5-14.5) H 10/20/20 Plt Count 153 K/uL (130-400) 10/20/20 MPV 11.1 fL (7.4-10.4) H 10/20/20 Nucleated Red Blood Cells % (auto) 1.8 % 10/20/20 Nucleated RBC Absolute Count (auto) 0.35 K/uL (0-0) H 10/20/20 Na 131 mmol/L (136-145) L 10/20/20 K 4.8 mmol/L (3.5-5.1) 10/20/20 Cl 100 mmol/L (98-107) 10/20/20 CO2 20 mmol/L (21-32) L 10/20/20 Anion Gap 11.0 (3-11) 10/20/20 BUN 49 mg/dl (7-18) H 10/20/20 Creatinine 4.34 mg/dl (0.6-1.2) H 10/20/20 Estimated GFR ( Amer) 11.0 ml/min 10/20/20 Estimated GFR (Non-Af Amer) 9.5 ml/min 10/20/20 BUN/Creatinine Ratio 11.2 (10-20) 10/20/20 Glu 94 mg/dl (70-99) 10/20/20 Ca 7.8 mg/dl (8.5-10.1) L 10/20/20 Phosphorus Level 7.4 mg/dl (2.5-4.9) H 10/20/20 Total Bilirubin 0.3 mg/dl (0.2-1) 10/20/20 AST 32 U/L (15-37) 10/20/20 ALT 59 U/L (12-78) 10/20/20 Alkaline Phosphatase 127 U/L (45-117) H 10/20/20 TP 5.5 gm/dl (6.4-8.2) L 10/20/20 Albumin 1.8 gm/dl (3.4-5.0) L 10/20/20 Globulin 3.7 gm/dl (2.5-4.0) 10/20/20 Albumin/Globulin Ratio 0.5 (0.9-2) L 10/20/20 Mg 1.8 mg/dl (1.8-2.4) 10/20/20 04:49 10/20/20 Calcium Level 7.8 mg/dl (8.5-10.1) L 10/20/20 04:49 10/20/20 Brandon Test NA 10/20/20 04:48 10/20/20 I & O Totals 24 Hours 10/19/20 10/20/20 10/21/20 06:59 06:59 06:59 Intake Total 2058.467 / 2058.467 1194.832 / 1194.832 Output Total 0 / 0 16 / 16 Balance 2058.467 / 2058.467 1178.832 / 1178.832 Cumulative 10/10/20 18:21 thru 10/20/20 06:25 Intake Total 45761.318 Output Total 4356 Balance 19419.318 RT Ventilator Mngmt (Last Documented) Ventilator Ordered Settings Ventilator Support Mode Assist Control 10/20/20 07:36 Respiratory Rate 27 10/20/20 07:36 Ventilator Tidal Volume 350 10/20/20 07:36 Setting Minute Ventilation 8.3 10/20/20 07:36 Ventilator Positive Pressure 8 10/17/20 16:00 Support Setting Positive End Expiratory 12 10/20/20 07:36 Pressure Fraction of Inspired Oxygen 45 10/20/20 07:36 Peak Inspiratory Flow 29 10/20/20 02:55 Machine Comment Decreased Peep to 10 10/20/20 07:36 Ventilator - PT Measurements Respiratory Rate 27 Exhaled Tidal Volume 349 Minute Ventilation 8.3 Peak Inspiratory Airway 29 Pressure Mean Airway Pressure 17 Plateau Pressure 23.8 Respiratory Cycle Inspiratory: 1:2.3 Expiratory Ratio Inspiratory Phase Time 0.7 End-Tidal CO2 27 Static Lung Compliance 29.58 Dynamic Lung Compliance 20.53 Normal Static Lung Compliance 46.00 Patient Measurements Comment peep turned back to 12 at this time due to abg results Coding Level of Care Code Critical Care 1st 30-74 mins Diagnoses Pneumonia due to 2019 novel coronavirus U07.1; J12.82 Bacterial pneumonia J15.9 Elevated liver enzymes R74.8 Acute respiratory failure with hypoxemia J96.01 Elevated troponin R77.8 Acute kidney injury N17.9 Fecal occult blood test positive R19.5 Time Spent (min) 47
[2020-10-20] MEDS ORDERED: SODIUM CHLORIDE 0.9% 1000ML 1,000 ML IV PRN (08:37)
[2020-10-20] MEDS ORDERED: SODIUM BICARB 8.4% INJ 50 MEQ/50 ML SYR IV ONE (08:45)
[2020-10-20] MEDS ORDERED: EPOETIN ALFA 10,000 UNITS/ML VIAL IV SCH (09:00)
[2020-10-20] MEDS ORDERED: HEPARIN SOD (PORCINE) 1000 UNIT/ML IV SCH (09:00)
--- NOTE | 2020-10-20 09:22 | Nephrology Progress Note ---
Date of Service October 20, 2020 Assessment & Plan (1) Acute kidney injury: Plan: * Baseline creatinine <1 mg/dL * LENNOX c/w ATN * US without obstruction * Urinalysis 10/15 negative for casts * HD performed 10/15, 10/17 and 10/18. Patient remains volume +. CXR this am shows mild apical clearing. FiO2 has been reduced to 45%. Levophed has been reduced to 2.5 mcg/min IV. Patient remains anuric * Will provide HD today for 4 hours using 4K, 36 HCO3 bath and attempt 3L UF. Orders have been placed in EMR and HD RN notified (2) Pneumonia due to 2019 novel coronavirus: Plan: * Received Toclizumab 10/13/20 * Completed Dexamethasone therapy * Remdesivir held due to LENNOX, elevated LFT's * Prognosis guarded - COVID pneumonia requiring mechanical ventilation, pressor support, LENNOX requiring HD (3) Hypertension: Plan: * SBP has been labile 90 - 110 mm Hg * Levophed dose reduced to 2.5 mcg/min IV overnight (4) Hyperphosphatemia: Plan: * Currently on low dose enteral feeding at 10 cc/hr. PO4 binder will likely be ineffective at this low rate * Recommend using low PO4 feeding * Consider PO4 binder if rate is increased or when patient is extubated and resumes oral diet Admission and Anticipated Discharge Date Admission Date: October 10, 2020 Subjective Mrs. Suero remains on respiratory isolation due to COVID pneumonia. She is sedated, mechanically ventilated and requires Levophed for pressor support. HD was held yesterday. This morning Levophed has been reduced to 2.5 mcg/min IV, FiO2 is down to 45% and CXR shows mild apical clearing. Patient remains essentially anuric. Review of Systems Review of Systems: Unobtainable due to endotracheal tube Physical Exam Physical Exam: withheld due to COVID + status Results & Data ([facility]) Vital Signs (Past 12 Hours) Vital Signs Temp Pulse Resp BP Pulse Ox 10/20/20 07:36 66 27 H 96 10/20/20 06:29 36.0 C L 69 107/40 L 97 10/20/20 04:59 36.2 C L 66 110/47 L 93 10/20/20 04:29 36.1 C L 65 92/39 L 95 10/20/20 04:00 69 133/50 L 10/20/20 03:59 36.0 C L 64 107/40 L 93 10/20/20 03:29 36.1 C L 67 111/34 L 96 10/20/20 02:55 64 27 H 97 10/20/20 02:32 36.4 C L 59 L 81/32 L 96 10/20/20 02:14 36.4 C L 55 L 99/47 L 100 10/20/20 01:44 36.5 C 55 L 109/46 L 100 10/20/20 01:14 36.5 C 57 L 89/42 L 100 10/20/20 01:00 54 L 26 H 100 10/20/20 00:44 36.5 C 58 L 95/35 L 100 10/20/20 00:14 36.5 C 56 L 99/41 L 100 10/20/20 00:00 54 L 133/50 L 10/19/20 23:44 36.5 C 54 L 117/50 L 100 10/19/20 23:14 36.6 C 56 L 119/45 L 100 10/19/20 22:44 36.6 C 53 L 117/43 L 100 10/19/20 22:14 36.6 C 55 L 119/42 L 100 10/19/20 21:44 36.6 C 58 L 113/39 L 100 10/19/20 21:14 36.6 C 57 L 113/48 L 100 Laboratory Results Laboratory Tests 10/20/20 10/20/20 04:49 04:49 WBC 19.43 H Hgb 8.5 L Hct 25.4 L Plt Count 153 Sodium 131 L Potassium 4.8 Chloride 100 Carbon Dioxide 20 L BUN 49 H D Creatinine 4.34 H D Glucose 94 PG Care Time/CCT Total # of Minutes Spent Total Time Spent with Patient: Total time spent is greater than 50% in coordination of care (as documented) at patient's floor/unit and/or counseling patient: Coding Level of Care Code 26992 Subseq Hosp Care Lvl 3 Diagnoses Acute kidney injury N17.9 Pneumonia due to 2019 novel coronavirus U07.1; J12.82 Hypertension I10 Hyperphosphatemia E83.39
[2020-10-20] MEDS: PANTOprazole 40 MG in SYRINGE 0 ML IV SCH (09:26)
[2020-10-20] MEDS: dexAMETHasone 6 MG in SYRINGE 0 ML IV SCH (09:26)
[2020-10-20] MEDS: ESCITALOPRAM OXALATE ORAL SOLN 20 MG/20 ML UDP PO SCH (09:26)
[2020-10-20] MEDS: ASPIRIN 81 MG CHEW NG SCH (09:27)
[2020-10-20] MEDS: fentaNYL DRIP 1,250 MCG/250 ML BAG IV SCH ×2 (09:49→22:03)
[2020-10-20] MEDS ORDERED: NOVASOURCE RENAL 2.0 CAL 1000ML BAG NG SCH (10:00)
--- NOTE | 2020-10-20 10:12 | XRay Report ---
XR chest 1V portable CLINICAL HISTORY: covid pna COMPARISON STUDY: October 19, 2020 FINDINGS: No pneumothorax. No pleural effusion. Redemonstration of the patchy airspace opacities throughout bilateral mid to lower lungs and air bron chograms within left retrocardiac region, stable since recent prior. Cardiomediastinal silhouette is stable. Aorta is calcified. Vasculature is obscured.. Osseous structures: Osteopenia and degenerative changes of the spine. Tip of endotracheal tube is projecting 4.5 cm above sherie. Stable position of gastric tube with fene strated side-port below level of hemidiaphragm. Stable position of right-sided central venous cathete r. IMPRESSION: 1. Multifocal pneumonia, unchanged since prior. 2. Tip of endotracheal tube is 4.5 cm above sherie. The rest of support apparatus as above. ACT 112: Negative or not required by law. The above report was generated using voice recognition software. It may contain grammatical, syntax o r spelling errors. Electronically signed by: Ainsley Pulido DO 10/20/2020 10:11 AM
[2020-10-20] MEDS: MIDAZOLAM HCL 1 MG/ML 2ML VIAL IV PRN ×2 (10:55→13:45)
--- NOTE | 2020-10-20 13:02 | Hospitalist Progress Note ---
Date of Service October 20, 2020 Assessment & Plan (1) Acute respiratory failure with hypoxemia: Plan: 2nd to severe COVID-19 pneumonia along with volume overload component/pulm edema from her acute renal failure as well. s/p HD for such. Respiratory status largely unchanged. Date of intubation - 10/16/20, thus day #5 of ventilator days. s/p 5-day course of IV antibiotics earlier this stay to cover any superimposed bacterial process. (2) Severe sepsis: Plan: 2nd to COVID-19 pneumonia. Continues with need for pressors (levophed). Continue supportive care. (3) Acute kidney injury: Plan: ATN due to COVID-19 (and/or remdesivir) with resulting severe acute renal failure. Remains anuric. Temporary HD catheter placed 10/15. Attempts at HD 10/15 unsuccessful. s/p HD 10/17 and 10/18. No HD 10/19. s/p HD today. Baseline Cr 0.9. Daily BMP. Appreciate nephrology assistance. (4) Pneumonia due to 2019 novel coronavirus: Plan: Critically ill due to such. Day #12/18 of dexamethasone 6mg IV daily. Remdesivir - first dose given on 10/10. Received dose #2 on 10/11. Due to development of LENNOX and transaminitis the remdesivir was stopped after 2nd dose. s/p Tocilizumab - 10/13/20. s/p full 5-day course of rocephin/zithromax. s/p intubation on 10/16/20 with mechanical ventilation since then. Remains critically ill. (5) Bacterial pneumonia: Plan: s/p ceftriaxone + azithromycin x 5 days earlier this stay. Most recent procal wnl. Now off IV abx. (6) Hypotension: Plan: 2nd to severe sepsis, COVID-19, medications (propofol), etc. Continue levophed as needed. (7) Elevated troponin: Plan: Peak trop 0.154. 2nd to myocardial demand ischemia. (8) Elevated d-dimer: Plan: 4890 on admission (10/10/20). LE dopplers negative for DVT b/l. Unable to perform CT to r/o PE due to LENNOX. Consider repeat dimer and if markedly elevated above admission dimer - empiric heparin? (9) Elevated liver enzymes: Plan: transaminitis 2nd to COVID-19. ast/alt had been improving. (10) Hypokalemia: Plan: Resolved (11) Metabolic acidosis: Plan: 2nd to acute renal failure and severe sepsis. ongoing. defer Rx to ICU team. (12) Fecal occult blood test positive: Plan: Melanic stools on second day of admission. Cont PPI for GI prophylaxis. Hb remains acceptable. (13) Hyponatremia: Plan: Mild, ongoing, 2nd LENNOX/ARF. Daily bmp. Plan: appreciate ICU and palliative care assistance family meeting with palliative took place on 10/19 -- patient made DNR, no transfer to tertiary care- but otherwise continue current care plan (HD, mech ventilation, etc). likely no escalation of care. Admission and Anticipated Discharge Date Admission Date: October 10, 2020 Subjective I checked on patient (outside the room) while she was receiving HD. Ultrafiltration goal is 3 liters. Nursing staff report that while on HD her levophed needed up-titration. With stopping propofol drip pt's mentation/level of alertness improves. tolerating tube feeds. vent settings - PEEP 16, FIO2 now 50%. remains 100% anuric. Physical Exam Physical Exam: bedside visit and physical exam deferred due to intubated status with COVID positivity Results & Data Results & Data ([facility]) Vital Signs (Past 12 Hours) Vital Signs Temp Pulse Pulse Resp BP Pulse Ox 10/20/20 12:45 88 101/49 L 10/20/20 12:30 82 93/49 L 10/20/20 12:15 83 104/49 L 10/20/20 12:00 80 117/51 L 10/20/20 11:45 77 131/55 L 10/20/20 11:30 73 157/59 H 10/20/20 11:15 82 86/41 L 10/20/20 11:00 36.4 C L 89 89 L 10/20/20 10:55 79 125/50 L 10/20/20 10:45 70 155/50 H 10/20/20 10:32 71 28 H 93 10/20/20 10:30 36.2 C L 70 146/45 H 95 10/20/20 10:15 71 166/47 H 10/20/20 10:00 36.4 C L 73 87 L 10/20/20 09:49 73 155/45 H 10/20/20 09:45 36.0 C L 93 H 10/20/20 09:30 66 98 10/20/20 09:01 36.5 C 69 100 10/20/20 08:29 36.5 C 68 99/42 L 96 10/20/20 08:00 70 144/46 H 10/20/20 07:59 69 99/46 L 95 10/20/20 07:36 66 27 H 96 10/20/20 07:00 68 99/38 L 95 10/20/20 06:29 36.0 C L 69 107/40 L 97 10/20/20 04:59 36.2 C L 66 110/47 L 93 10/20/20 04:29 36.1 C L 65 92/39 L 95 10/20/20 04:00 69 133/50 L 10/20/20 03:59 36.0 C L 64 107/40 L 93 10/20/20 03:29 36.1 C L 67 111/34 L 96 10/20/20 02:55 64 27 H 97 10/20/20 02:32 36.4 C L 59 L 81/32 L 96 10/20/20 02:14 36.4 C L 55 L 99/47 L 100 10/20/20 01:44 36.5 C 55 L 109/46 L 100 10/20/20 01:14 36.5 C 57 L 89/42 L 100 Laboratory Results CBC, BMP reviewd PG Care Time/CCT Total # of Minutes Spent Total Time Spent with Patient: Total time spent is greater than 50% in coordination of care (as documented) at patient's floor/unit and/or counseling patient: Coding Level of Care Code None Diagnoses Acute respiratory failure with hypoxemia J96.01 Severe sepsis A41.9; R65.20 Acute kidney injury N17.9 Pneumonia due to 2019 novel coronavirus U07.1; J12.82 Bacterial pneumonia J15.9 Hypotension I95.9 Elevated troponin R77.8 Elevated d-dimer R79.89 Elevated liver enzymes R74.8 Hypokalemia E87.6 Metabolic acidosis E87.2 Fecal occult blood test positive R19.5 Hyponatremia E87.1
[2020-10-20] MEDS: NOREPINEPHRINE/D5W 8 MG/508 ML BAG IV SCH ×2 (15:21→17:31)
[2020-10-20] MEDS: HEPARIN SOD (PORCINE) 1000 UNIT/ML IV SCH ×2 (15:22→15:23)
[2020-10-21] MEDS: INSULIN ASPART 100 UNITS/ML 3 ML PEN SC SCH ×4 (00:37→18:17)
[2020-10-21] MEDS: TUBE FEEDING WATER FLUSH GT SCH ×6 (00:38→20:44)
[2020-10-21 05:25] LABS: Basophils # (auto) 0.06 K/uL (0-0.2); Basophils % (auto) 0.3 %; Eosinophils # (auto) 0.14 K/uL (0-0.5); Eosinophils % (auto) 0.7 %; Hemoglobin 8.2 g/dL (12.0-16.0); Immature Granulocytes # (auto) 1.04 K/uL (0.00-0.02); Lymphocytes # (auto) 1.57 K/uL (1.2-3.4); Lymphocytes % (auto) 7.6 %; Mean Corpuscular Hemoglobin 28.7 pg (25-34); Mean Corpuscular Hgb Conc 32.8 g/dL (32-36); Mean Corpuscular Volume 87.4 fL (80-100); Mean Platelet Volume 11.1 fL (7.4-10.4); Monocytes # (auto) 0.28 K/uL (0.11-0.59); Monocytes % (auto) 1.3 %; Neutrophils # (auto) 17.69 K/uL (1.4-6.5); Neutrophils % (auto) 85.1 %; Nucleated RBC # (auto) 0.67 K/uL (0-0); Nucleated RBC % (auto) 3.2 %; Platelet Count 171 K/uL (130-400); RDW Coefficient of Variation 17.4 % (11.5-14.5); RDW Standard Deviation 53.5 fL (36.4-46.3); Red Blood Count 2.86 M/uL (4.2-5.4); White Blood Count 20.78 K/uL (4.8-10.8)
[2020-10-21 05:27] LABS: iSTAT Art Bld Gas pCO2 Correct 53 mmHg (35-46); iSTAT Art Bld Gas pH Corrected 7.322 (7.35-7.45); iSTAT Arterial Blood Gas HCO3 28 meg/L (19-24); iSTAT Arterial Blood Gas pCO2 54 mmHg (35-46); iSTAT Arterial Blood Gas pH 7.32 (7.35-7.45); iSTAT Arterial Blood Gas pO2 108 mmHg (80-95); iSTAT Arterial Blood Gas pO2 C 106; iSTAT Carbon Dioxide 29 mmol/L (24-31); iSTAT FiO2 55 %; iSTAT Hematocrit 28 % (37-47); iSTAT Hemoglobin 9.5 g/dl (12.0-16.0); iSTAT Potassium 4.6 mmol/L (3.3-5.0); iSTAT Site Art Line; iSTAT Sodium 132 mmol/L (135-144)
[2020-10-21 05:51] LABS: Albumin Globulin Ratio 0.5 (0.9-2); Albumin Level 1.8 gm/dl (3.4-5.0); BUN Creatinine Ratio 9.1 (10-20); Bilirubin,Total 0.3 mg/dl (0.2-1); C Reactive Protein 8.52 mg/dl (0-0.29); Calcium 7.7 mg/dl (8.5-10.1); Creatinine Clr Calc Pharmacy 13.1 ml/min; Est GFR (African American) 17.4 ml/min; Globulin 3.7 gm/dl (2.5-4.0); Magnesium 2.1 mg/dl (1.8-2.4); Potassium 4.6 mmol/L (3.5-5.1); Total Protein 5.5 gm/dl (6.4-8.2)
[2020-10-21] MEDS: HEPARIN SOD 5,000 UNIT/0.5 ML VIAL SQ SCH ×3 (05:53→21:10)
[2020-10-21 06:01] LABS: Basophilic Stippling 1+; Polychromasia 1+
[2020-10-21] MEDS: INSULIN GLARGINE SOLOSTAR 100 UNITS/ML 3 ML PEN SC SCH ×2 (06:17→18:17)
[2020-10-21] MEDS: NOREPINEPHRINE/D5W 8 MG/508 ML BAG IV SCH (07:05)
--- NOTE | 2020-10-21 08:55 | Critical Care Progress Note ---
Date of Service October 21, 2020 Assessment & Plan (1) Pneumonia due to 2019 novel coronavirus: (2) Acute respiratory failure with hypoxemia: (3) Bacterial pneumonia: (4) Acute kidney injury: (5) Metabolic acidosis: Plan: Impression: 75-year-old female admitted with COVID-19 pneumonia. Course has been complicated by acute delirium requiring intubation, initiation of vasopressors for shock, ARDS, as well as acute renal failure requiring initiation of hemodialysis. 24-hour events: tolerated HD yesterday with UF about 2L. Pressors increased this AM but Fio2 better. Pplat still 25-30. Transitioned off propofol to vers ed pushes. Tolerating trophic TF Recommendations: 1. Neurologic: Acute delirium. Unclear etiology but possibly secondary to Covid infection with superimposed metabolic abnormalities. No indication for imaging at this time. Currently on Fent and prn versed. Daily sedation break as tolerated. TG were elevated so off propofol for now. If unable to maintain appropriate sedation, may need to restart. She is not a candidate for Precedex given her hypotension. 2. Cardiovascular: Hypotension: Stable pressor requirements. Continue to work on weaning as tolerated. 3. Pulmonary: Continue ARDSnet targets. Most recent AB.32/54/108 - combined respiratory and metabolic acidosis likely secondary to acute renal failure. Day #6 mechanical ventilation. Plateau pressures are currently stable at 20-30 range. If they continue to increase, may drop tidal volume down to 4 cc/kg predicted body weight. X-ray today slightly stable. Completed RECOVERY dexamethasone - given ARDS, will place on late phase decadron protocol - 20 mg for 5 days, then 10 mg daily for 5 days. Follow for secondary infection. 4. ID: Completed 5 days of azithromycin and Rocephin. Received Tocilizumab. White count remains elevated however the patient not been febrile. Surveillance cultures negative to date. PCT elevated of unclear significance in HD. Line sites look OK. Hold abx for now. 5. Renal: Likely ATN - multifactorial. Phosphate is elevated. Discussed with Dr. Qiuñonez - plan for additional HD with UF today. 6. GI: No evidence of active ongoing GI bleeding. Continue PPI. Trickle tube feeds, holding advancing given pressor requirements 7. Endocrine: On dexamethasone. Glycemic control per protocol 8. Heme-onc: Stable anemia. Continue to trend. No evidence of active ongoing bleeding. No indication for transfusion currently. Overall prognosis is guarded. DNR/DNI status. Remains critically ill but has had some mild stabilization of the last 24 hours. Will update by phone today Patient discussed on multidisciplinary rounds and with critical care bedside nurse. A total of 50 minutes critical care time was spent in evaluation management and coordination of care of this critically ill patient with multiple life-threatening issues Admission and Anticipated Discharge Date Admission Date: October 10, 2020 Subjective intubated and sedated Review of Systems Review of Systems: Unobtainable due to endotracheal tube Physical Exam Constitutional: + mechanically ventilated and + overweight Neck: trachea midline, no thyromegaly Respiratory: normal respiratory effort, lungs clear to auscultation no respiratory distress Auscultation: + rales and + wheezes Cardiovascular: RRR, no murmur, no edema Gastrointestinal (Abdomen): normal bowel sounds, soft, nontender, no hepatosplenomegaly Musculoskeletal: Extremities: extremities normal to inspection Skin: no rashes, warm and dry Lymphatic: no cervical lymphadenopathy Results & Data Results & Data ([facility]) Vital Signs (Past 12 Hours) Vital Signs Temp Pulse Resp BP Pulse Ox 10/21/20 08:00 82 128/55 L 10/21/20 05:31 36.6 C 82 112/65 94 10/21/20 05:01 36.6 C 81 102/42 L 99 10/21/20 04:31 36.7 C 80 107/44 L 98 10/21/20 04:01 37.1 C 69 99/35 L 99 10/21/20 04:00 28 H 10/21/20 03:31 37.1 C 74 139/51 L 98 10/21/20 03:01 37.1 C 75 107/45 L 96 10/21/20 02:31 37.1 C 81 98/59 L 97 10/21/20 02:01 37.1 C 76 109/44 L 99 10/21/20 01:31 37.1 C 76 105/58 L 95 10/21/20 01:01 37.1 C 78 100/51 L 98 10/21/20 00:31 37.1 C 78 88/38 L 97 10/21/20 00:01 37.1 C 76 94/41 L 96 10/21/20 00:00 74 10/20/20 23:31 37.1 C 77 106/79 98 10/20/20 23:20 29 H 10/20/20 23:01 37.1 C 77 107/70 100 10/20/20 22:31 37.1 C 70 114/61 100 10/20/20 22:01 37.1 C 75 116/44 L 100 10/20/20 21:31 37.1 C 74 104/31 L 100 10/20/20 21:01 37.1 C 73 103/35 L 100 Critical Care Results & Data Vital Signs (Past 12 Hours) Vital Signs Temp Pulse Resp BP Pulse Ox 10/21/20 08:10 80 30 H 98 10/21/20 08:00 82 128/55 L 10/21/20 05:31 36.6 C 82 112/65 94 10/21/20 05:01 36.6 C 81 102/42 L 99 10/21/20 04:31 36.7 C 80 107/44 L 98 10/21/20 04:01 37.1 C 69 99/35 L 99 10/21/20 04:00 28 H 10/21/20 03:31 37.1 C 74 139/51 L 98 10/21/20 03:01 37.1 C 75 107/45 L 96 10/21/20 02:31 37.1 C 81 98/59 L 97 10/21/20 02:01 37.1 C 76 109/44 L 99 10/21/20 01:31 37.1 C 76 105/58 L 95 10/21/20 01:01 37.1 C 78 100/51 L 98 10/21/20 00:31 37.1 C 78 88/38 L 97 10/21/20 00:01 37.1 C 76 94/41 L 96 10/21/20 00:00 74 10/20/20 23:31 37.1 C 77 106/79 98 10/20/20 23:20 29 H 10/20/20 23:01 37.1 C 77 107/70 100 10/20/20 22:31 37.1 C 70 114/61 100 10/20/20 22:01 37.1 C 75 116/44 L 100 10/20/20 21:31 37.1 C 74 104/31 L 100 10/20/20 21:01 37.1 C 73 103/35 L 100 Lab & Micro Results (Past 24 Hours) RBC 2.86 M/uL (4.2-5.4) L 10/21/20 WBC 20.78 K/uL (4.8-10.8) H 10/21/20 Hgb 8.2 g/dL (12.0-16.0) L 10/21/20 Hct 25.0 % (37-47) L 10/21/20 MCV 87.4 fL (80-100) 10/21/20 MCH 28.7 pg (25-34) 10/21/20 MCHC 32.8 g/dL (32-36) 10/21/20 RDW Standard Deviation 53.5 fL (36.4-46.3) H 10/21/20 RDW Coefficient of Variation 17.4 % (11.5-14.5) H 10/21/20 Plt Count 171 K/uL (130-400) 10/21/20 MPV 11.1 fL (7.4-10.4) H 10/21/20 Nucleated Red Blood Cells % (auto) 3.2 % 10/21/20 Nucleated RBC Absolute Count (auto) 0.67 K/uL (0-0) H 10/21/20 Neutrophils (%) (Auto) 85.1 % 10/21/20 Lymphocytes (%) (Auto) 7.6 % 10/21/20 Monocytes # (Auto) 0.28 K/uL (0.11-0.59) 10/21/20 Eosinophils # (Auto) 0.14 K/uL (0-0.5) 10/21/20 Immature Granulocyte % (Auto) 5.0 % 10/21/20 Neutrophils # (Auto) 17.69 K/uL (1.4-6.5) H 10/21/20 Lymphocytes # (Auto) 1.57 K/uL (1.2-3.4) 10/21/20 Monocytes # (Auto) 0.28 K/uL (0.11-0.59) 10/21/20 Eosinophils # (Auto) 0.14 K/uL (0-0.5) 10/21/20 Basophils # (Auto) 0.06 K/uL (0-0.2) 10/21/20 Immature Granulocyte # (Auto) 1.04 K/uL (0.00-0.02) H 10/21/20 Polychromasia 1+ 10/21/20 Basophilic Stippling 1+ 10/21/20 Na 133 mmol/L (136-145) L 10/21/20 K 4.6 mmol/L (3.5-5.1) 10/21/20 Cl 102 mmol/L (98-107) 10/21/20 CO2 26 mmol/L (21-32) 10/21/20 Anion Gap 5.0 (3-11) 10/21/20 BUN 27 mg/dl (7-18) H 10/21/20 Creatinine 2.96 mg/dl (0.6-1.2) H 10/21/20 Estimated GFR ( Amer) 17.4 ml/min 10/21/20 Estimated GFR (Non-Af Amer) 15.0 ml/min 10/21/20 BUN/Creatinine Ratio 9.1 (10-20) L 10/21/20 Glu 110 mg/dl (70-99) H 10/21/20 Ca 7.7 mg/dl (8.5-10.1) L 10/21/20 Phosphorus Level 5.5 mg/dl (2.5-4.9) H 10/21/20 Total Bilirubin 0.3 mg/dl (0.2-1) 10/21/20 AST 37 U/L (15-37) 10/21/20 ALT 59 U/L (12-78) 10/21/20 Alkaline Phosphatase 143 U/L (45-117) H 10/21/20 TP 5.5 gm/dl (6.4-8.2) L 10/21/20 Albumin 1.8 gm/dl (3.4-5.0) L 10/21/20 Globulin 3.7 gm/dl (2.5-4.0) 10/21/20 Albumin/Globulin Ratio 0.5 (0.9-2) L 10/21/20 Mg 2.1 mg/dl (1.8-2.4) 10/21/20 05:00 10/21/20 Calcium Level 7.7 mg/dl (8.5-10.1) L 10/21/20 05:00 10/21/20 Brandon Test NA 10/21/20 05:10 10/21/20 Microbiology 10/20/20 Unknown Gram Stain - Final Sputum,Vent Suction Diagnostic Findings (Past 24 Hours) Chest X-Ray 10/20/20 07:00 XR chest 1V portable CLINICAL HISTORY: covid pna COMPARISON STUDY: October 19, 2020 FINDINGS: No pneumothorax. No pleural effusion. Redemonstration of the patchy airspace opacities throughout bilateral mid to lower lungs and air bronchograms within left retrocardiac region, stable since recent prior. Cardiomediastinal silhouette is stable. Aorta is calcified. Vasculature is obscured.. Osseous structures: Osteopenia and degenerative changes of the spine. Tip of endotracheal tube is projecting 4.5 cm above sherie. Stable position of gastric tube with fenestrated side-port below level of hemidiaphragm. Stable position of right-sided central venous catheter. IMPRESSION: 1. Multifocal pneumonia, unchanged since prior. 2. Tip of endotracheal tube is 4.5 cm above sherie. The rest of support appara tus as above. ACT 112: Negative or not required by law. The above report was generated using voice recognition software. It may contain grammatical, syntax or spelling errors. Electronically signed by: Ainsley Pulido DO 10/20/2020 10:11 AM I & O Totals 24 Hours 10/20/20 10/21/20 10/22/20 06:59 06:59 06:59 Intake Total 1194.832 / 1107.078 0499.822 / 1265.822 558.493 / 558.493 Output Total 16 1 / 1 0 / 0 Balance 1178.832 / 8799.644 3982.822 / 1264.822 558.493 / 558.493 Cumulative 10/10/20 18:21 thru 10/21/20 08:00 Intake Total 40421.633 Output Total 4357 Balance 27966.633 RT Ventilator Mngmt (Last Documented) Ventilator Ordered Settings Ventilator Support Mode Assist Control 10/21/20 08:10 Respiratory Rate 30 10/21/20 08:10 Ventilator Tidal Volume 300 10/21/20 08:10 Setting Minute Ventilation 7.3 10/21/20 08:10 Ventilator Positive Pressure 8 10/17/20 16:00 Support Setting Positive End Expiratory 14 10/21/20 08:10 Pressure Fraction of Inspired Oxygen 50 10/21/20 08:10 Peak Inspiratory Flow 40 10/21/20 08:10 Machine Comment fio2 dropped per spo2 10/20/20 23:20 Ventilator - PT Measurements Respiratory Rate 30 Exhaled Tidal Volume 300 Minute Ventilation 7.3 Peak Inspiratory Airway 31 Pressure Mean Airway Pressure 20 Plateau Pressure 28 Respiratory Cycle Inspiratory: 1:2.8 Expiratory Ratio Inspiratory Phase Time 0.60 End-Tidal CO2 39 Static Lung Compliance 21.43 Dynamic Lung Compliance 17.65 Normal Static Lung Compliance 45.00 Patient Measurements Comment changed post ABG results due to Po2 108 on 55% and +16 Coding Level of Care Code Critical Care 1st 30-74 mins Diagnoses Pneumonia due to 2019 novel coronavirus U07.1; J12.82 Acute respiratory failure with hypoxemia J96.01 Bacterial pneumonia J15.9 Acute kidney injury N17.9 Metabolic acidosis E87.2
[2020-10-21] MEDS ORDERED: SODIUM CHLORIDE 0.9% 1000ML 1,000 ML IV PRN (08:58)
[2020-10-21] MEDS ORDERED: HEPARIN SOD (PORCINE) 1000 UNIT/ML IV ONE (09:04)
[2020-10-21 09:29] LABS: Phosphorus 5.5 mg/dl (2.5-4.9)
[2020-10-21] MEDS: PANTOprazole 40 MG in SYRINGE 0 ML IV SCH (10:13)
[2020-10-21] MEDS: ASPIRIN 81 MG CHEW NG SCH (10:13)
[2020-10-21] MEDS: ESCITALOPRAM OXALATE ORAL SOLN 20 MG/20 ML UDP PO SCH (10:13)
[2020-10-21] MEDS: fentaNYL DRIP 1,250 MCG/250 ML BAG IV SCH (10:14)
--- NOTE | 2020-10-21 10:15 | Nephrology Progress Note ---
Date of Service October 21, 2020 Assessment & Plan (1) Acute kidney injury: Plan: * Baseline creatinine <1 mg/dL * LENNOX c/w ATN * US without obstruction * Urinalysis 10/15 negative for casts * HD performed 10/15, 10/17, 10/18 and 10/20. Patient remains volume +. CXR this am shows improvement in vascular congestion. 2500 cc UF obtained w/ HD today but 1500 cc IVF administered overnight. Patient remains anuric * Will provide HD today for 4 hours using 4K, 32 HCO3 bath and attempt 3L UF. Orders have been placed in EMR and HD RN notified * Recommend maximally concentrating pressors to limit IVF administration. Discussed w/ staff radiographer (2) Pneumonia due to 2019 novel coronavirus: Plan: * Received Toclizumab 10/13/20 * Completed Dexamethasone therapy * Remdesivir held due to LENNOX, elevated LFT's * Prognosis guarded - COVID pneumonia requiring mechanical ventilation, pressor support, LENNOX requiring HD (3) Hypertension: Plan: * SBP has been labile 88 - 128 mm Hg * Remains on Levophed gtt (9 mcg/min IV this am) (4) Hyperphosphatemia: Plan: * Currently on low dose enteral feeding at 10 cc/hr. PO4 binder will likely be ineffective at this low rate * Recommend using low PO4 feeding * Consider PO4 binder if rate is increased or when patient is extubated and resumes oral diet Admission and Anticipated Discharge Date Admission Date: October 10, 2020 Subjective Mrs. Suero remains on respiratory isolation due to COVID pneumonia. She is sedated, mechanically ventilated and requires Levophed for pressor support. HD was performed yesterday for 2500 cc UF. Patient remains anuric. Levophed has been titrated to 9 mcg/min. FiO2 is 50%. CXR shows mild apical clearing. Net 1500 cc volume given overnight in the form of pressors and free water tube feed flushes. Review of Systems Review of Systems: Unobtainable due to endotracheal tube Physical Exam Physical Exam: withheld due to COVID + status Results & Data ([facility]) Vital Signs (Past 12 Hours) Vital Signs Temp Pulse Resp BP Pulse Ox 10/21/20 08:10 80 30 H 98 10/21/20 08:00 82 128/55 L 10/21/20 05:31 36.6 C 82 112/65 94 10/21/20 05:01 36.6 C 81 102/42 L 99 10/21/20 04:31 36.7 C 80 107/44 L 98 10/21/20 04:01 37.1 C 69 99/35 L 99 10/21/20 04:00 28 H 10/21/20 03:31 37.1 C 74 139/51 L 98 10/21/20 03:01 37.1 C 75 107/45 L 96 10/21/20 02:31 37.1 C 81 98/59 L 97 10/21/20 02:01 37.1 C 76 109/44 L 99 10/21/20 01:31 37.1 C 76 105/58 L 95 10/21/20 01:01 37.1 C 78 100/51 L 98 10/21/20 00:31 37.1 C 78 88/38 L 97 10/21/20 00:01 37.1 C 76 94/41 L 96 10/21/20 00:00 74 10/20/20 23:31 37.1 C 77 106/79 98 10/20/20 23:20 29 H 10/20/20 23:01 37.1 C 77 107/70 100 10/20/20 22:31 37.1 C 70 114/61 100 Laboratory Results Laboratory Tests 10/21/20 10/21/20 05:00 05:00 WBC 20.78 H Hgb 8.2 L Hct 25.0 L Plt Count 171 Sodium 133 L Potassium 4.6 Chloride 102 Carbon Dioxide 26 BUN 27 H Creatinine 2.96 H D Glucose 110 H PG Care Time/CCT Total # of Minutes Spent Total Time Spent with Patient: Total time spent is greater than 50% in coordination of care (as documented) at patient's floor/unit and/or counseling patient: Coding Level of Care Code 10631 Subseq Hosp Care Lvl 3 Diagnoses Acute kidney injury N17.9 Pneumonia due to 2019 novel coronavirus U07.1; J12.82 Hypertension I10 Hyperphosphatemia E83.39
--- NOTE | 2020-10-21 10:42 | XRay Report ---
SINGLE VIEW CHEST CLINICAL HISTORY: Respiratory failure. Covid. FINDINGS: An AP, portable, semierect chest radiograph is compared to study dated 10/20/2020. The exami nation is degraded by portable technique and patient rotation. An endotracheal tube, an enteric tube, and a right internal jugular central venous catheter are unchanged in position. The cardiomediastina l silhouette is unremarkable noting atherosclerotic calcification of the thoracic aorta. Multifocal a irspace consolidation is again seen throughout both lungs. This is increasingly confluent at the lung bases. There is trace right apical pneumothorax. The left-sided pneumothorax is identified. No large pleural effusion is seen. The skeletal structures are osteopenic. The bony thorax is grossly intact. IMPRESSION: 1. Trace right apical pneumothorax. This was not clearly seen yesterday. 2. Stable lines and tubes. 3. Multifocal airspace consolidation is again seen throughout both lungs. This is increasingly conflu ent as compared to yesterday. ACT 112: Negative or not required by law. Electronically signed by: Raf Mckeon M.D. 10/21/2020 10:41 AM
--- NOTE | 2020-10-21 11:59 | Pharmacy Report ---
Pharmacy Glycemic Short Note 2 - Date of Service October 21, 2020 - Glycemic Short BSG Results (Last 24 hours): 10/20/20 10/20/20 10/21/20 12:12 17:35 00:13 Glucose POC Glucose 81 131 H POC Glucose (other) 120 H 10/21/20 10/21/20 05:00 06:00 Glucose 110 H POC Glucose POC Glucose (other) 119 H OUTPATIENT ANTIDIABETIC REGIMEN: * N/a * HbA1c = 6.5% (10/14/20) ASSESSMENT: 10/21: * BSGs have been well controlled over last 24 hrs with minimal insulin needs * Only 4 units SQ administered in last 24 hrs and latest BSGs in 120-130s range * Of note, pressor requirements have increased over last 24 hrs, IV steroid dose has also increased and the carb content of TFs have increased due to change to [email or web address] Renal. * Current insulin orders are producing acceptable results despite new stressors - continue the same for now PLAN FOR INPATIENT GLYCEMIC CONTROL: * Basal insulin - * Lantus 0-3-5 units SC BID, depending on BSG * Bolus insulin * NovoLog per scale ACHS or Q6hrs while NPO * Goal Range: Low 110 mg/dL - High 140 mg/dL * Correction Factor: 25 mg/dL/unit * Nutritional / Prandial insulin per carb ratio of 1 unit per 10 grams CHO consumed PLAN FOR DISCHARGE: * HbA1c was 6.5% from this admission indicating patient has newly diagnosed Type 2 Diabetes. * Could consider dietary and lifestyle changes for now.
[2020-10-21] MEDS: oxyCODONE HCL IR 5 MG TAB (IMMEDIATE RELEASE) NG SCH ×2 (12:49→17:50)
[2020-10-21] MEDS: dexAMETHasone 20 MG in DEXTROSE 5% 25 ML IV SCH (12:49)
[2020-10-21] MEDS: fentaNYL citrate 2,500 MCG/250 ML BAG IV SCH (12:49)
[2020-10-21] MEDS: clonazePAM 0.5 MG TAB PO SCH ×2 (12:49→21:10)
[2020-10-21] MEDS: NOREPINEPHRINE/D5W 16 MG/500 ML BAG IV SCH ×2 (13:27→23:51)
[2020-10-21] MEDS: HEPARIN SOD (PORCINE) 1000 UNIT/ML IV SCH (15:38)
--- NOTE | 2020-10-21 18:39 | Hospitalist Progress Note ---
Date of Service October 21, 2020 Assessment & Plan (1) Acute respiratory failure with hypoxemia: Plan: Acute respiratory failure with hypoxemia 2/2 Covid pneumonia complicated by renal failure Covid positive, - On extended Decadron protocol Date of intubation: 10/16/2020 Current management per ICU, appreciate assistance Patient completed prior 5-day course of azithromycin/Rocephin for superimposed infection, no additional antibiotics indicated at this time Remdesivir - first dose given on 10/10. Received dose #2 on 10/11. - Due to development of LENNOX and transaminitis the remdesivir was stopped after 2nd dose. -s/p Tocilizumab - 10/13/20. -s/p full 5-day course of rocephin/zithromax. -s/p intubation on 10/16/20 with mechanical ventilation since then. (2) Severe sepsis: Plan: -2nd to COVID-19 pneumonia. -Continues with need for pressors (levophed) per ICU -Continue supportive care. (3) Acute kidney injury: Plan: -ATN due to COVID-19 (and/or remdesivir) with resulting severe acute renal failure. -Remains anuric. -Temporary HD catheter placed 10/15. -That is post HD: 10/17, 10/18, 10/21 Daily BMP -Baseline Cr 0.9. -Daily BMP. -Appreciate nephrology assistance. (4) Pneumonia due to 2019 novel coronavirus: Plan: - Management as noted in AHRF - Remains critically ill. (5) Bacterial pneumonia: Plan: s/p ceftriaxone + azithromycin x 5 days earlier this stay. Most recent procal wnl. Now off IV abx. (6) Hypotension: Plan: 2nd to severe sepsis, COVID-19, medications (propofol), etc. Continue levophed as needed. (7) Elevated troponin: Plan: -Peak trop 0.154. -2nd to myocardial demand ischemia. (8) Elevated d-dimer: Plan: -4890 on admission (10/10/20). -LE dopplers negative for DVT b/l. -Unable to perform CT to r/o PE due to LENNOX. (9) Elevated liver enzymes: Plan: -transaminitis 2nd to COVID-19. -ast/alt normalized (10) Hypokalemia: Plan: Resolved (11) Metabolic acidosis: Plan: 2nd to acute renal failure and severe sepsis. ongoing. defer Rx to ICU team. (12) Fecal occult blood test positive: Plan: -Melanic stools on second day of admission. -Cont PPI for GI prophylaxis. -Hb remains acceptable. (13) Hyponatremia: Plan: -Mild, ongoing, 2nd LENNOX/ARF. -Daily bmp. Plan: -appreciate ICU and palliative care assistance -family meeting with palliative took place on 10/19 -- patient made DNR, no transfer to tertiary care- but otherwise continue current care plan (HD, mech ventilation, etc). Admission and Anticipated Discharge Date Admission Date: October 10, 2020 Subjective Patient seen at the bedside. History is objective limited by ETT tube. Review of Systems Review of Systems: Unobtainable due to endotracheal tube Physical Exam Physical Exam: General: On mechanical ventilation, appears ill HEENT: Atraumatic, normocephalic. Pulm: Mechanically ventilated, ETT in place. Rales and diffuse inspiratory/expiratory wheezes appreciated. Cardiac: RRR, -mrg. Radial pulses intact and symmetrical. Abdominal: Nontender, nondistended, soft. Extremities: Warm, dry Results & Data Results & Data ([facility]) Vital Signs (Past 12 Hours) Vital Signs Temp Pulse Pulse Resp BP Pulse Ox 10/21/20 17:20 98 H 108/55 L 10/21/20 17:01 37.0 C 81 87/58 L 97 10/21/20 17:00 100 H 101/84 10/21/20 16:40 84 98/78 L 10/21/20 16:20 84 124/68 10/21/20 16:01 36.9 C 91 H 117/53 L 99 10/21/20 16:00 84 97/77 L 10/21/20 15:40 84 108/59 L 10/21/20 15:25 83 35 H 100 10/21/20 15:20 88 159/79 H 10/21/20 15:01 36.8 C 78 157/61 H 100 10/21/20 15:00 81 174/85 H 10/21/20 14:40 70 158/73 H 10/21/20 14:20 69 164/74 H 10/21/20 14:01 36.9 C 68 138/51 L 95 10/21/20 14:00 36.8 C 71 10/21/20 13:01 36.9 C 81 116/49 L 93 10/21/20 12:01 37.0 C 82 110/48 L 93 10/21/20 11:34 75 30 H 98 10/21/20 11:01 37.0 C 78 129/48 L 96 10/21/20 10:01 36.9 C 85 73/33 L 97 10/21/20 09:01 36.9 C 76 128/42 L 96 10/21/20 08:10 80 30 H 98 10/21/20 08:01 37.0 C 84 131/49 L 96 10/21/20 08:00 82 128/55 L 10/21/20 07:01 36.8 C 88 66/34 L 98 PG Care Time/CCT Total # of Minutes Spent Total Time Spent with Patient: Total time spent is greater than 50% in coordination of care (as documented) at patient's floor/unit and/or counseling patient: Coding Level of Care Code 82591 Subseq Hosp Care Lvl 3 Diagnoses Acute respiratory failure with hypoxemia J96.01 Severe sepsis A41.9; R65.20 Acute kidney injury N17.9 Pneumonia due to 2019 novel coronavirus U07.1; J12.82 Bacterial pneumonia J15.9 Hypotension I95.9 Elevated troponin R77.8 Elevated d-dimer R79.89 Elevated liver enzymes R74.8 Hypokalemia E87.6 Metabolic acidosis E87.2 Fecal occult blood test positive R19.5 Hyponatremia E87.1
[2020-10-22] MEDS: oxyCODONE HCL IR 5 MG TAB (IMMEDIATE RELEASE) NG SCH ×4 (00:22→17:06)
[2020-10-22] MEDS: TUBE FEEDING WATER FLUSH GT SCH ×6 (00:23→20:46)
[2020-10-22] MEDS: INSULIN ASPART 100 UNITS/ML 3 ML PEN SC SCH ×4 (00:30→17:15)
[2020-10-22 05:39] LABS: Basophils # (auto) 0.03 K/uL (0-0.2); Basophils % (auto) 0.2 %; Eosinophils # (auto) 0.06 K/uL (0-0.5); Eosinophils % (auto) 0.3 %; Hematocrit (blood only) 23.3 % (37-47); Hemoglobin 7.7 g/dL (12.0-16.0); Immature Granulocytes # (auto) 0.56 K/uL (0.00-0.02); Lymphocytes # (auto) 1.02 K/uL (1.2-3.4); Lymphocytes % (auto) 5.5 %; Mean Corpuscular Hemoglobin 28.9 pg (25-34); Mean Corpuscular Volume 87.6 fL (80-100); Mean Platelet Volume 11.5 fL (7.4-10.4); Monocytes # (auto) 0.38 K/uL (0.11-0.59); Neutrophils # (auto) 16.63 K/uL (1.4-6.5); Nucleated RBC # (auto) 0.42 K/uL (0-0); Nucleated RBC % (auto) 2.2 %; Platelet Count 161 K/uL (130-400); RDW Coefficient of Variation 17.8 % (11.5-14.5); RDW Standard Deviation 53.2 fL (36.4-46.3); Red Blood Count 2.66 M/uL (4.2-5.4); White Blood Count 18.68 K/uL (4.8-10.8)
[2020-10-22] MEDS: HEPARIN SOD 5,000 UNIT/0.5 ML VIAL SQ SCH ×3 (05:43→20:46)
[2020-10-22 05:59] LABS: Basophilic Stippling Occasional; Polychromasia 1+; Schistocytes Occasional
[2020-10-22] MEDS: INSULIN GLARGINE SOLOSTAR 100 UNITS/ML 3 ML PEN SC SCH ×2 (05:59→17:15)
[2020-10-22 06:03] LABS: Albumin Level 1.8 gm/dl (3.4-5.0); BUN Creatinine Ratio 9.3 (10-20); Calcium 7.5 mg/dl (8.5-10.1); Creatinine Clr Calc Pharmacy 14.7 ml/min; Est GFR (African American) 20.1 ml/min; Est GFR (Non-African American) 17.3 ml/min; Magnesium 2.2 mg/dl (1.8-2.4); Potassium 4.9 mmol/L (3.5-5.1)
[2020-10-22 06:11] LABS: Albumin Globulin Ratio 0.5 (0.9-2); Bilirubin,Total 0.3 mg/dl (0.2-1); C Reactive Protein 10.3 mg/dl (0-0.29); Globulin 3.9 gm/dl (2.5-4.0); Phosphorus 4.1 mg/dl (2.5-4.9); Total Protein 5.7 gm/dl (6.4-8.2)
[2020-10-22] MEDS: dexAMETHasone 20 MG in DEXTROSE 5% 25 ML IV SCH (08:10)
[2020-10-22] MEDS: ESCITALOPRAM OXALATE ORAL SOLN 20 MG/20 ML UDP PO SCH (08:10)
[2020-10-22] MEDS: PANTOprazole 40 MG in SYRINGE 0 ML IV SCH (08:10)
[2020-10-22] MEDS: clonazePAM 0.5 MG TAB PO SCH ×2 (08:12→20:46)
--- NOTE | 2020-10-22 10:24 | XRay Report ---
XR chest 1V portable HISTORY: Respiratory failure. covid pneumonia COMPARISON: Chest 10/21/2020. FINDINGS: Slight increase in size in the small right apical pneumothorax which demonstrates a pleural gap of 1.4 cm. There is a small amount of pneumomediastinum present. Left neck/chest wall subcutaneo us emphysema is noted. The endotracheal tube terminates 2.9 cm from the sherie. Nasogastric tube term inates low the diaphragm. The tip is not included on this study. A right jugular central venous rebecca ter likely terminates at the SVC. The tip is obscured by the cardiac monitoring lead. Patchy bilatera l airspace opacities persist and are consistent with Covid pneumonia. IMPRESSION: 1. Satisfactory support line placement. 2. Increase in size in the small right apical pneumothorax. 3. Interval development of a small amount of pneumomediastinum. 4. These findings were called/faxed to the referring physician following dictation. ACT 112: Negative or not required by law. Electronically signed by: Jon Camacho M.D. 10/22/2020 10:22 AM
--- NOTE | 2020-10-22 10:43 | Critical Care Progress Note ---
Date of Service October 22, 2020 Assessment & Plan (1) Pneumonia due to 2019 novel coronavirus: (2) Acute respiratory failure with hypoxemia: (3) Bacterial pneumonia: (4) Acute kidney injury: (5) Metabolic acidosis: Plan: Impression: 75-year-old female admitted with COVID-19 pneumonia. Course has been complicated by acute delirium requiring intubation, initiation of vasopressors for shock, ARDS, as well as acute renal failure requiring initiation of hemodialysis. 24-hour events: Intermittently weaning pressors. Started on oral clonazepam and oxycodone in an effort to try and reduce her need for IV medications. Chest x- ray yesterday demonstrated a small apical pneumothorax however its increased in size on today's film and there is some associated pneumomediastinum. Her vent requirements have weaned overnight. She is still requiring pressors Recommendations: 1. Neurologic: Acute delirium. Unclear etiology but possibly secondary to Covid infection with superimposed metabolic abnormalities. Will change fentanyl to as needed pushes and continue to use Versed as needed pushes. Daily sedation break as tolerated. TG were elevated so off propofol for now. If unable to maintain appropriate sedation, may need to restart. She is not a candidate for Precedex given her hypotension. Continue oral oxycodone and clonazepam. If hyperactive delirium becomes problematic, Seroquel or Zyprexa may be appropriate 2. Cardiovascular: Hypotension: Stable pressor requirements. Continue to work on weaning as tolerated. 3. Pulmonary: Continue ARDSnet targets. Day #7 mechanical ventilation. Plateau pressures are currently stable at 20-30 range. Completed RECOVERY dexamethasone - given ARDS, started on late phase decadron protocol - 20 mg for 5 days, then 10 mg daily for 5 days, started 10/21/2020. Follow for secondary infection. The small right apical pneumothorax is increased today and there appears to be some slight mid pneumomediastinum. Given need for continued posit gordon pressure ventilation we will plan on placing chest tube on the right and follow imaging. This was discussed with the patient's who agreed to the procedure. 4. ID: Completed 5 days of azithromycin and Rocephin. Received Tocilizumab. White count remains elevated however is decreasing today. Surveillance cultures negative to date. PCT elevated of unclear significance in HD. Line sites look OK. Hold abx for now. 5. Renal: Likely ATN - multifactorial. Phosphate is elevated. Per nephrology 6. GI: No evidence of active ongoing GI bleeding. Continue PPI. Trickle tube feeds, holding advancing given pressor requirements 7. Endocrine: On dexamethasone. Glycemic control per protocol 8. Heme-onc: anemia. Continue to trend. No evidence of active ongoing bleeding. No indication for transfusion currently, but approaching transfusion threshold. Overall prognosis is guarded. DNR/DNI status. Remains critically ill but has had some mild improvement in the last 24 hours. Patient discussed with critical care bedside nurse and patient spouse was updated by phone. A total of 50 minutes critical care time was spent in evaluation management and coordination of care of this critically ill patient with multiple life-threatening issues Admission and Anticipated Discharge Date Admission Date: October 10, 2020 Subjective Patient remains intubated and sedated Review of Systems Review of Systems: Unobtainable due to endotracheal tube Physical Exam Constitutional: + mechanically ventilated and + overweight Neck: trachea midline, no thyromegaly Respiratory: normal respiratory effort, lungs clear to auscultation no respiratory distress Auscultation: + rales and + wheezes Cardiovascular: RRR, no murmur, no edema Gastrointestinal (Abdomen): normal bowel sounds, soft, nontender, no hepatosplenomegaly Musculoskeletal: Extremities: extremities normal to inspection Skin: no rashes, warm and dry Lymphatic: no cervical lymphadenopathy Results & Data Results & Data ([facility]) Vital Signs (Past 12 Hours) Vital Signs Temp Pulse Resp BP Pulse Ox 10/22/20 10:01 37.0 C 69 151/53 H 95 10/22/20 09:01 37.0 C 74 110/52 L 95 10/22/20 08:01 37.1 C 72 112/41 L 97 10/22/20 07:30 71 29 H 98 10/22/20 07:01 37.2 C 74 118/55 L 98 10/22/20 05:31 37.5 C 79 147/44 H 95 10/22/20 05:01 37.5 C 70 106/43 L 98 10/22/20 04:31 37.6 C H 79 120/43 L 96 10/22/20 04:30 76 29 H 96 10/22/20 04:01 37.6 C H 77 124/44 L 92 10/22/20 03:31 37.6 C H 79 160/55 H 92 10/22/20 03:01 37.6 C H 81 139/53 L 96 10/22/20 02:31 37.6 C H 77 136/62 95 10/22/20 02:01 37.5 C 78 130/48 L 96 10/22/20 01:31 37.5 C 75 128/50 L 94 10/22/20 01:01 37.4 C 71 129/47 L 97 10/22/20 00:31 37.4 C 69 113/41 L 95 10/22/20 00:01 37.4 C 68 165/59 H 100 10/22/20 00:00 75 10/21/20 23:55 67 28 H 99 10/21/20 23:31 37.5 C 69 144/49 H 100 10/21/20 23:01 37.5 C 72 145/55 H 100 Critical Care Results & Data Vital Signs (Past 12 Hours) Vital Signs Temp Pulse Resp BP Pulse Ox 10/22/20 10:01 37.0 C 69 151/53 H 95 10/22/20 09:01 37.0 C 74 110/52 L 95 10/22/20 08:01 37.1 C 72 112/41 L 97 10/22/20 07:30 71 29 H 98 10/22/20 07:01 37.2 C 74 118/55 L 98 10/22/20 05:31 37.5 C 79 147/44 H 95 10/22/20 05:01 37.5 C 70 106/43 L 98 10/22/20 04:31 37.6 C H 79 120/43 L 96 10/22/20 04:30 76 29 H 96 10/22/20 04:01 37.6 C H 77 124/44 L 92 10/22/20 03:31 37.6 C H 79 160/55 H 92 10/22/20 03:01 37.6 C H 81 139/53 L 96 10/22/20 02:31 37.6 C H 77 136/62 95 10/22/20 02:01 37.5 C 78 130/48 L 96 10/22/20 01:31 37.5 C 75 128/50 L 94 10/22/20 01:01 37.4 C 71 129/47 L 97 10/22/20 00:31 37.4 C 69 113/41 L 95 10/22/20 00:01 37.4 C 68 165/59 H 100 10/22/20 00:00 75 10/21/20 23:55 67 28 H 99 10/21/20 23:31 37.5 C 69 144/49 H 100 10/21/20 23:01 37.5 C 72 145/55 H 100 Lab & Micro Results (Past 24 Hours) RBC 2.66 M/uL (4.2-5.4) L 10/22/20 WBC 18.68 K/uL (4.8-10.8) H 10/22/20 Hgb 7.7 g/dL (12.0-16.0) L 10/22/20 Hct 23.3 % (37-47) L 10/22/20 MCV 87.6 fL (80-100) 10/22/20 MCH 28.9 pg (25-34) 10/22/20 MCHC 33.0 g/dL (32-36) 10/22/20 RDW Standard Deviation 53.2 fL (36.4-46.3) H 10/22/20 RDW Coefficient of Variation 17.8 % (11.5-14.5) H 10/22/20 Plt Count 161 K/uL (130-400) 10/22/20 MPV 11.5 fL (7.4-10.4) H 10/22/20 Nucleated Red Blood Cells % (auto) 2.2 % 10/22/20 Nucleated RBC Absolute Count (auto) 0.42 K/uL (0-0) H 10/22/20 Neutrophils (%) (Auto) 89.0 % 10/22/20 Lymphocytes (%) (Auto) 5.5 % 10/22/20 Monocytes # (Auto) 0.38 K/uL (0.11-0.59) 10/22/20 Eosinophils # (Auto) 0.06 K/uL (0-0.5) 10/22/20 Immature Granulocyte % (Auto) 3.0 % 10/22/20 Neutrophils # (Auto) 16.63 K/uL (1.4-6.5) H 10/22/20 Lymphocytes # (Auto) 1.02 K/uL (1.2-3.4) L 10/22/20 Monocytes # (Auto) 0.38 K/uL (0.11-0.59) 10/22/20 Eosinophils # (Auto) 0.06 K/uL (0-0.5) 10/22/20 Basophils # (Auto) 0.03 K/uL (0-0.2) 10/22/20 Immature Granulocyte # (Auto) 0.56 K/uL (0.00-0.02) H 10/22/20 Polychromasia 1+ 10/22/20 Basophilic Stippling Occasional 10/22/20 Schistocytes Occasional 10/22/20 Na 133 mmol/L (136-145) L 10/22/20 K 4.9 mmol/L (3.5-5.1) 10/22/20 Cl 103 mmol/L (98-107) 10/22/20 CO2 26 mmol/L (21-32) 10/22/20 Anion Gap 4.0 (3-11) 10/22/20 BUN 24 mg/dl (7-18) H 10/22/20 Creatinine 2.63 mg/dl (0.6-1.2) H 10/22/20 Estimated GFR ( Amer) 20.1 ml/min 10/22/20 Estimated GFR (Non-Af Amer) 17.3 ml/min 10/22/20 BUN/Creatinine Ratio 9.3 (10-20) L 10/22/20 Glu 100 mg/dl (70-99) H 10/22/20 Ca 7.5 mg/dl (8.5-10.1) L 10/22/20 Phosphorus Level 4.1 mg/dl (2.5-4.9) 10/22/20 Total Bilirubin 0.3 mg/dl (0.2-1) 10/22/20 AST 30 U/L (15-37) 10/22/20 ALT 49 U/L (12-78) 10/22/20 Alkaline Phosphatase 142 U/L (45-117) H 10/22/20 TP 5.7 gm/dl (6.4-8.2) L 10/22/20 Albumin 1.8 gm/dl (3.4-5.0) L 10/22/20 Globulin 3.9 gm/dl (2.5-4.0) 10/22/20 Albumin/Globulin Ratio 0.5 (0.9-2) L 10/22/20 Mg 2.2 mg/dl (1.8-2.4) 10/22/20 04:55 10/22/20 Calcium Level 7.5 mg/dl (8.5-10.1) L 10/22/20 04:55 10/22/20 Microbiology 10/20/20 08:46 Aerobic Blood Culture - Preliminary Blood No growth in Aerobic bottle after 48 hours. Anaerobic Blood Culture - Preliminary No growth in Anaerobic bottle after 48 hours. 10/20/20 09:00 Aerobic Blood Culture - Preliminary Blood No growth in Aerobic bottle after 48 hours. Anaerobic Blood Culture - Preliminary No growth in Anaerobic bottle after 48 hours. 10/20/20 Unknown Gram Stain - Final Sputum,Vent Suction Sputum Culture - Final Light normal marcia. Diagnostic Findings (Past 24 Hours) Chest X-Ray 10/21/20 07:00 SINGLE VIEW CHEST CLINICAL HISTORY: Respiratory failure. Covid. FINDINGS: An AP, portable, semierect chest radiograph is compared to study dated 10/20/2020. The examination is degraded by portable technique and patient rotation. An endotracheal tube, an enteric tube, and a right internal jugular central venous catheter are unchanged in position. The cardiomediastinal silhouette is unremarkable noting atherosclerotic calcification of the thoracic aorta. Multifocal airspace consolidation is again seen throughout both lungs. This is increasingly confluent at the lung bases. There is trace right apical pneumothorax. The left-sided pneumothorax is identified. No large pleural effusion is seen. The skeletal structures are osteopenic. The bony thorax is grossly intact. IMPRESSION: 1. Trace right apical pneumothorax. This was not clearly seen yesterday. 2. Stable lines and tubes. 3. Multifocal airspace consolidation is again seen throughout both lungs. This is increasingly confluent as compared to yesterday. ACT 112: Negative or not required by law. Electronically signed by: Raf Mckeon M.D. 10/21/2020 10:41 AM Chest X-Ray 10/22/20 07:00 XR chest 1V portable HISTORY: Respiratory failure. covid pneumonia COMPARISON: Chest 10/21/2020. FINDINGS: Slight increase in size in the small right apical pneumothorax which demonstrates a pleural gap of 1.4 cm. There is a small amount of pneumomediastinum present. Left neck/chest wall subcutaneous emphysema is noted. The endotracheal tube terminates 2.9 cm from the sherie. Nasogastric tube terminates low the diaphragm. The tip is not included on this study. A right jugular central venous catheter likely terminates at the SVC. The tip is obscured by the cardiac monitoring lead. Patchy bilateral airspace opacities persist and are consistent with Covid pneumonia. IMPRESSION: 1. Satisfactory support line placement. 2. Increase in size in the small right apical pneumothorax. 3. Interval development of a small amount of pneumomediastinum. 4. These findings were called/faxed to the referring physician following dictation. ACT 112: Negative or not required by law. Electronically signed by: Jon Camacho M.D. 10/22/2020 10:22 AM I & O Totals 24 Hours 10/21/20 10/22/20 10/23/20 06:59 06:59 06:59 Intake Total 1265.822 / 1707.777 2185.620 / 1863.620 30 / Output Total Balance 1264.822 / 2142.106 9638.620 / 1862.620 30 / Cumulative 10/10/20 18:21 thru 10/22/20 08:52 Intake Total 31299.760 Output Total 4358 Balance 20174.760 RT Ventilator Mngmt (Last Documented) Ventilator Ordered Settings Ventilator Support Mode Assist Control 10/22/20 08:00 Respiratory Rate 29 10/22/20 07:30 Ventilator Tidal Volume 300 10/22/20 08:00 Setting Minute Ventilation 6.9 10/22/20 07:30 Ventilator Positive Pressure 8 10/17/20 16:00 Support Setting Positive End Expiratory 10 10/22/20 09:26 Pressure Fraction of Inspired Oxygen 40 10/22/20 08:00 Peak Inspiratory Flow 40 10/22/20 07:30 Machine Comment vent change per Dr Suarez 10/22/20 09:26 Ventilator - PT Measurements Respiratory Rate 29 Exhaled Tidal Volume 285 Minute Ventilation 6.9 Peak Inspiratory Airway 36 Pressure Mean Airway Pressure 20 Plateau Pressure 29 Respiratory Cycle Inspiratory: 1:2.8 Expiratory Ratio Inspiratory Phase Time 0.60 End-Tidal CO2 31 Static Lung Compliance 19.00 Dynamic Lung Compliance 12.95 Normal Static Lung Compliance 43.00 Patient Measurements Comment changed post ABG results due to Po2 108 on 55% and +16 Coding Level of Care Code Critical Care 1st 30-74 mins Diagnoses Pneumonia due to 2019 novel coronavirus U07.1; J12.82 Acute respiratory failure with hypoxemia J96.01 Bacterial pneumonia J15.9 Acute kidney injury N17.9 Metabolic acidosis E87.2 Time Spent (min) 48
[2020-10-22] MEDS: ASPIRIN 81 MG CHEW NG SCH (10:47)
--- NOTE | 2020-10-22 12:05 | Nephrology Progress Note ---
Date of Service October 22, 2020 Assessment & Plan (1) Pneumonia due to 2019 novel coronavirus: Plan: * Received Toclizumab 10/13/20 * Completed Dexamethasone therapy * Remdesivir held due to LENNOX, elevated LFT's * Prognosis guarded - COVID pneumonia requiring mechanical ventilation, pressor support, LENNOX requiring HD (2) Acute kidney injury: (3) Metabolic acidosis: (4) Severe sepsis: (5) Hyponatremia: Plan: 75-year-old female admitted with COVID pneumonia. 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 Received Toclizumab 10/13/20. Completed Dexamethasone therapy. Remdes ivir was stopped after 2 doses due to LENNOX, elevated LFT's. completed azithromycin. Has been having dialysis daily mainly for UF as she has been anuric and getting IV fluid with multiple infusions. Clinically there is some sign of improvement with decrease FiO2 requirement, decreased pressor requirement. --plan for hemodialysis today with aim for 2-3 L of UF as tolerated. Continue to monitor for renal recovery. Dose medications for GFR less than 10. as temporary dialysis catheter has been working without any difficulty, will keep the catheter in place and continue to use it for dialysis at this time. Will follow Admission and Anticipated Discharge Date Admission Date: October 10, 2020 Subjective Mrs. Suero was evaluated this morning, labs and clinical parameters reviewed, discussed with her nurse. Remain intubated, maintaining oxygen saturation with FiO2 40%. Blood pressure improved, pressor requirement improving. However, no significant sign of renal recovery, remains anuric. Results & Data ([facility]) Vital Signs (Past 12 Hours) Vital Signs Temp Pulse Resp BP Pulse Ox 10/22/20 10:01 37.0 C 69 151/53 H 95 10/22/20 09:01 37.0 C 74 110/52 L 95 10/22/20 08:01 37.1 C 72 112/41 L 97 10/22/20 07:30 71 29 H 98 10/22/20 07:01 37.2 C 74 118/55 L 98 10/22/20 05:31 37.5 C 79 147/44 H 95 10/22/20 05:01 37.5 C 70 106/43 L 98 10/22/20 04:31 37.6 C H 79 120/43 L 96 10/22/20 04:30 76 29 H 96 10/22/20 04:01 37.6 C H 77 124/44 L 92 10/22/20 03:31 37.6 C H 79 160/55 H 92 10/22/20 03:01 37.6 C H 81 139/53 L 96 10/22/20 02:31 37.6 C H 77 136/62 95 10/22/20 02:01 37.5 C 78 130/48 L 96 10/22/20 01:31 37.5 C 75 128/50 L 94 10/22/20 01:01 37.4 C 71 129/47 L 97 10/22/20 00:31 37.4 C 69 113/41 L 95 10/22/20 00:01 37.4 C 68 165/59 H 100 10/22/20 00:00 75 PG Care Time/CCT Total # of Minutes Spent Total Time Spent with Patient: Total time spent is greater than 50% in coordination of care (as documented) at patient's floor/unit and/or counseling patient: Coding Level of Care Code 13917 Subseq Hosp Care Lvl 2 Diagnoses Pneumonia due to 2019 novel coronavirus U07.1; J12.82 Acute kidney injury N17.9 Metabolic acidosis E87.2 Severe sepsis A41.9; R65.20 Hyponatremia E87.1
[2020-10-22] MEDS: NOREPINEPHRINE/D5W 16 MG/500 ML BAG IV SCH (12:19)
--- NOTE | 2020-10-22 12:30 | Procedure Note ---
Procedure Note Date of Service October 22, 2020 Note Procedure: Placement of 20 Gambian chest tube Indication right-sided pneumothorax on mechanically ventilated patient Capsule Filler Dr. Suarez Consent risks and benefits were discussed with patient spouse who verbally agreed to proceed by telephone. Anesthesia patient was maintained on a fentanyl infusion. 5 cc 1% lidocaine local. Patient was placed in the right side up decubitus position. The area just inferior lateral to the nipple in the midclavicular line was cleaned using chlorhexidine and a sterile field established. 1% lidocaine without epinephrine was used to infiltrate the skin and soft tissues. Needle was advanced until the rib was palpated. The needle was advanced over the rib and into the pleural space. A wire was advanced through the needle. The needle was withdrawn. The scalpel was used to extend an approximately 1.5 cm incision around the wire. Serial dilators were used to dilate the tract. A 20 Gambian chest tube was then advanced over the wire into the pleural space. The wire and stiffening cathete rs were removed with the chest tube left in place. It was attached to the Pleur-evac. Some serosanguineous discharge was noted. No overt air leak. The tube was secured via silk sutures and a Bioclusive dressing. Follow-up chest x- ray is pending. Estimated blood loss: Less than 5 mL Coding CPT Codes Pulmonary/Thoracic - Pulmonary and Thoracic: 27041 Tube thoracostomy ([id number]) [facility] Procedure Codes (Charges) Pulmonary/Thoracic Procedure 1: Pulmonary and Thoracic: 44692 Tube thoracostomy
--- NOTE | 2020-10-22 12:49 | XRay Report ---
XR chest 1V portable HISTORY: 75 years-old Female chest tube placement acute respiratory failure COMPARISON: 10/22/2020 chest radiograph 5:50 AM TECHNIQUE: Portable AP view the chest FINDINGS: Endotracheal tube overlies the midline, 3.3 cm superior to the sherie. Enteric tube distal tip overli es the abdominal right upper quadrant in the expected location of the distal stomach versus proximal duodenum. Right IJ central venous catheter terminates in the expected location of the mid to inferior SVC. Status post placement of a right-sided chest tube with distal tip terminating adjacent to the m edial right lung apex. Mild subcutaneous emphysema of the right lateral chest wall. Trace residual ri ght apical pneumothorax. Extensive bilateral airspace opacities redemonstrated which have not signifi cantly changed. Trace pneumomediastinum. Subcutaneous emphysema of the neck. Degenerative changes of the shoulders and spine. IMPRESSION: 1. Status post placement of a left-sided chest tube terminating adjacent to the medial left lung apex . Trace residual pneumothorax. 2. Subcutaneous emphysema of the chest wall with pneumomediastinum redemonstrated. 3. Extensive bilateral airspace opacities compatible with multifocal pneumonia redemonstrated. 4. Additional lines and tubes as above. ACT 112: Negative or not required by law. The above report was generated using voice recognition software. It may contain grammatical, syntax o r spelling errors. Electronically signed by: Tristan Haider M.D. 10/22/2020 12:48 PM
[2020-10-22] MEDS: fentaNYL citrate 2,500 MCG/250 ML BAG IV SCH (17:02)
--- NOTE | 2020-10-22 19:35 | Hospitalist Progress Note ---
Date of Service October 22, 2020 Assessment & Plan (1) Acute respiratory failure with hypoxemia: Plan: Acute respiratory failure with hypoxemia 2/2 Covid pneumonia complicated by renal failure Covid positive, - On extended Decadron protocol Date of intubation: 10/16/2020 Current management per ICU, appreciate assistance. FiO2 requirement decreasing, pressor requirement was decreasing however required increase again this afternoon Patient completed prior 5-day course of azithromycin/Rocephin for superimposed infection, no additional antibiotics indicated at this time Remdesivir - first dose given on 10/10. Received dose #2 on 10/11. - Due to development of LENNOX and transaminitis the remdesivir was stopped after 2nd dose. -s/p Tocilizumab - 10/13/20. -s/p full 5-day course of rocephin/zithromax. -s/p intubation on 10/16/20 with mechanical ventilation since then. (2) Severe sepsis: Plan: -2nd to COVID-19 pneumonia. -Continues with need for pressors (levophed) per ICU -Continue supportive care. (3) Acute kidney injury: Plan: -ATN due to COVID-19 (and/or remdesivir) with resulting severe acute renal failure. -Remains anuric. -Temporary HD catheter placed 10/15. -post HD: 10/17, 10/18, 10/21. ELOS is pending 10/22 Daily BMP -Baseline Cr 0.9. -Daily BMP. -Appreciate nephrology assistance. (4) Pneumonia due to 2019 novel coronavirus: Plan: - Management as noted in AHRF - Remains critically ill. (5) Bacterial pneumonia: Plan: s/p ceftriaxone + azithromycin x 5 days earlier this stay. Most recent procal wnl. Now off IV abx. Additional antibiotics indicated at this (6) Hypotension: Plan: 2nd to severe sepsis, COVID-19, medications (propofol), etc. Continue levophed as needed. (7) Elevated troponin: Plan: -Peak trop 0.154. -2nd to myocardial demand ischemia. (8) Elevated d-dimer: Plan: -4890 on admission (10/10/20). -LE dopplers negative for DVT b/l. -Unable to perform CT to r/o PE due to LENNOX. (9) Elevated liver enzymes: Plan: -transaminitis 2nd to COVID-19. -ast/alt normalized (10) Hypokalemia: Plan: Resolved (11) Metabolic acidosis: Plan: 2nd to acute renal failure and severe sepsis. ongoing. defer Rx to ICU team. (12) Fecal occult blood test positive: Plan: -Melanic stools on second day of admission. -Cont PPI for GI prophylaxis. -Hb remains acceptable. (13) Hyponatremia: Plan: -Mild, ongoing, 2nd LENNOX/ARF. -Daily bmp. (14) Pneumothorax: Plan: Chest tube placed by critical care team Plan: -appreciate ICU and palliative care assistance -family meeting with palliative took place on 10/19 -- patient made DNR, no transfer to tertiary care- but otherwise continue current care plan (HD, mech ventilation, etc). Admission and Anticipated Discharge Date Admission Date: October 10, 2020 Subjective Case discussed with care team, exam deferred to minimize COVID-19 transmission. Patient continues on mechanical ventilation with decreasing FiO2 requirements this afternoon, pressor requirements were being weaned but increased in the afternoon. Chest tube placed for right apical pneumothorax today, no additional antibiotics at this time. Fentanyl being given as needed with Versed as needed and daily sedation breaks. Review of Systems Review of Systems: Unobtainable due to endotracheal tube Physical Exam Physical Exam: Exam deferred to minimize transmission of COVID-19 during pandemic. Results & Data Results & Data ([facility]) Vital Signs (Past 12 Hours) Vital Signs Temp Pulse Pulse Resp BP BP Pulse Ox 10/22/20 17:40 36.9 C 76 128/49 L 10/22/20 17:15 74 109/49 L 10/22/20 17:00 78 92/57 L 10/22/20 16:45 80 93/46 L 10/22/20 16:30 75 130/58 L 10/22/20 16:15 77 116/52 L 10/22/20 16:10 75 130/51 L 10/22/20 16:00 80 83/51 L 10/22/20 15:45 81 113/51 L 10/22/20 15:30 78 113/73 10/22/20 15:15 75 110/50 L 10/22/20 15:00 79 104/44 L 10/22/20 14:55 71 31 H 98 10/22/20 14:45 75 113/60 10/22/20 14:31 72 114/60 10/22/20 14:15 78 130/57 L 10/22/20 14:00 75 143/63 H 10/22/20 13:45 72 150/69 H 10/22/20 13:30 69 184/74 H 10/22/20 13:17 37.0 C 75 10/22/20 12:02 36.9 C 82 217/71 H 95 10/22/20 11:15 72 31 H 95 10/22/20 11:01 36.9 C 71 143/51 H 96 10/22/20 10:01 37.0 C 69 151/53 H 95 10/22/20 09:01 37.0 C 74 110/52 L 95 10/22/20 08:01 37.1 C 72 112/41 L 97 10/22/20 07:30 71 29 H 98 PG Care Time/CCT Total # of Minutes Spent Total Time Spent with Patient: Total time spent is greater than 50% in coding quality coordinator rdination of care (as documented) at patient's floor/unit and/or counseling patient: Coding Level of Care Code 71329 Subseq Hosp Care Lvl 1 Diagnoses Acute respiratory failure with hypoxemia J96.01 Severe sepsis A41.9; R65.20 Acute kidney injury N17.9 Pneumonia due to 2019 novel coronavirus U07.1; J12.82 Bacterial pneumonia J15.9 Hypotension I95.9 Elevated troponin R77.8 Elevated d-dimer R79.89 Elevated liver enzymes R74.8 Hypokalemia E87.6 Metabolic acidosis E87.2 Fecal occult blood test positive R19.5 Hyponatremia E87.1 Pneumothorax J93.9
--- NOTE | 2020-10-22 20:55 | Procedure Note ---
Procedure Note Date of Service October 22, 2020 Note ARTERIAL LINE PROCEDURE NOTE: Procedure: Arterial Line Placement Attending: Dr. Jake Suarez Provider: JHON Schwartz Indication: Monitoring on Pressors Anesthesia: Lidocaine 1% Line placed emergently due to failure of previously placed right radial arterial line, and hemodynamically unstable patient requiring continuous vasopressor support. A time-out was completed verifying correct patient, procedure, site, positioning, and implant(s) or special equipment if applicable. Allens test was performed to ensure adequate perfusion. Patients left wrist was prepped and draped in the usual sterile fashion. Ultrasound guidance was used to aid needle placement. A 20g Arrow arterial line was introduced into the left radial artery. Catheter was threaded, and the needle was removed with appropriate blood return. Good waveform was observed. The patient tolerated the procedure well. Confirmation of placement with ultrasound. Blood Loss: Minimal Complications: None Procedural Ultrasound Guidance: Procedure Date: 10/22/2020 Indication: Arterial line insertion Attending: Dr. Jake Suarez Provider: JHON Schwartz Artery Identified: YES Line confirmed in Artery with ultrasound: Yes Complications: NONE Patient tolerated procedure: WELL Coding CPT Codes Tubes, Drains, and Vasc Access - Tubes, Drains, and Vasc Access: [id number] Place Catheter In Artery ([id number]) Tubes, Drains, and Vasc Access - Tubes, Drains, and Vasc Access: [id number] Ultrasound Guidance For Vascular ([id number]) [facility] Procedure Codes (Charges) Tubes, Drains, and Vasc Access Procedure 1: Tubes, Drains, and Vasc Access: [id number] Place Catheter In Artery Procedure 2: Tubes, Drains, and Vasc Access: [id number] Ultrasound Guidance For Vascular
[2020-10-23] MEDS: oxyCODONE HCL IR 5 MG TAB (IMMEDIATE RELEASE) NG SCH ×5 (00:07→23:00)
[2020-10-23] MEDS: INSULIN ASPART 100 UNITS/ML 3 ML PEN SC SCH ×5 (00:29→23:23)
[2020-10-23] MEDS: TUBE FEEDING WATER FLUSH GT SCH ×7 (00:30→23:25)
[2020-10-23 05:03] LABS: Basophils # (auto) 0.05 K/uL (0-0.2); Basophils % (auto) 0.3 %; Eosinophils % (auto) 0.5 %; Hematocrit (blood only) 24.5 % (37-47); Immature Granulocytes % (auto) 2.2 %; Lymphocytes % (auto) 10.3 %; Mean Corpuscular Hemoglobin 28.3 pg (25-34); Mean Corpuscular Hgb Conc 32.7 g/dL (32-36); Mean Corpuscular Volume 86.6 fL (80-100); Mean Platelet Volume 11.2 fL (7.4-10.4); Monocytes # (auto) 0.59 K/uL (0.11-0.59); Monocytes % (auto) 3.2 %; Neutrophils # (auto) 15.46 K/uL (1.4-6.5); Neutrophils % (auto) 83.5 %; Nucleated RBC # (auto) 0.27 K/uL (0-0); Nucleated RBC % (auto) 1.5 %; Platelet Count 182 K/uL (130-400); RDW Standard Deviation 51.1 fL (36.4-46.3); Red Blood Count 2.83 M/uL (4.2-5.4)
[2020-10-23 05:27] LABS: iSTAT Art Bld Gas pCO2 Correct 48 mmHg (35-46); iSTAT Art Bld Gas pH Corrected 7.409 (7.35-7.45); iSTAT Arterial Blood Gas HCO3 30 meg/L (19-24); iSTAT Arterial Blood Gas pCO2 48 mmHg (35-46); iSTAT Arterial Blood Gas pH 7.41 (7.35-7.45); iSTAT Arterial Blood Gas pO2 73 mmHg (80-95); iSTAT Arterial Blood Gas pO2 C 74; iSTAT Carbon Dioxide 32 mmol/L (24-31); iSTAT FiO2 40 %; iSTAT Hematocrit 23 % (37-47); iSTAT Hemoglobin 7.8 g/dl (12.0-16.0); iSTAT Potassium 3.4 mmol/L (3.3-5.0); iSTAT Site Art Line; iSTAT Sodium 132 mmol/L (135-144)
[2020-10-23 05:48] LABS: Albumin Globulin Ratio 0.5 (0.9-2); Albumin Level 1.9 gm/dl (3.4-5.0); BUN Creatinine Ratio 10.1 (10-20); Bilirubin,Total 0.3 mg/dl (0.2-1); C Reactive Protein 8.19 mg/dl (0-0.29); Est GFR (African American) 25.4 ml/min; Est GFR (Non-African American) 21.9 ml/min; Globulin 4.2 gm/dl (2.5-4.0); Magnesium 2.4 mg/dl (1.8-2.4); Phosphorus 3.3 mg/dl (2.5-4.9); Potassium 3.4 mmol/L (3.5-5.1); Total Protein 6.1 gm/dl (6.4-8.2)
[2020-10-23] MEDS: HEPARIN SOD 5,000 UNIT/0.5 ML VIAL SQ SCH ×3 (06:07→20:56)
[2020-10-23] MEDS: INSULIN GLARGINE SOLOSTAR 100 UNITS/ML 3 ML PEN SC SCH ×2 (06:27→17:23)
[2020-10-23] MEDS: dexAMETHasone 20 MG in DEXTROSE 5% 25 ML IV SCH (08:07)
[2020-10-23] MEDS: ESCITALOPRAM OXALATE ORAL SOLN 20 MG/20 ML UDP PO SCH (08:08)
[2020-10-23] MEDS: PANTOprazole 40 MG in SYRINGE 0 ML IV SCH (08:08)
[2020-10-23] MEDS: clonazePAM 0.5 MG TAB PO SCH (08:11)
--- NOTE | 2020-10-23 08:20 | XRay Report ---
XR chest 1V portable HISTORY: 75 years-old Female resp failure, chest tube acute respiratory failure COMPARISON: Chest radiograph 10/22/2020 TECHNIQUE: AP view of the chest FINDINGS: Endotracheal tube overlies the midline, 2.9 cm superior to the sherie. Enteric tube courses below the diaphragm outside the [id number]. Unchanged positioning of the right IJ central venous catheter a nd right-sided chest tube. No definite pneumothorax. Decreased subcutaneous emphysema of the chest wa ll with decreased pneumomediastinum. Extensive bilateral pulmonary opacities are redemonstrated. No l arge pleural effusion. IMPRESSION: 1. Lines and tubes as above. This includes stable positioning of the right apical chest tube without pneumothorax identified. 2. Extensive bilateral airspace opacities redemonstrated compatible with multifocal pneumonia. 3. Decreased pneumomediastinum and subcutaneous emphysema of the chest wall. ACT 112: Negative or not required by law. The above report was generated using voice recognition software. It may contain grammatical, syntax o r spelling errors. Electronically signed by: Tristan Haider M.D. 10/23/2020 8:19 AM
--- NOTE | 2020-10-23 09:31 | Critical Care Progress Note ---
Date of Service October 23, 2020 Assessment & Plan (1) Pneumonia due to 2019 novel coronavirus: (2) Acute respiratory failure with hypoxemia: (3) Bacterial pneumonia: (4) Acute kidney injury: (5) Metabolic acidosis: Plan: Impression: 75-year-old female admitted with COVID-19 pneumonia. Course has been complicated by acute delirium requiring intubation, initiation of vasopressors for shock, ARDS, as well as acute renal failure requiring initiation of hemodialysis. 24-hour events: Patient tolerated hemodialysis yesterday with ultrafiltration of 2.8 L. She transiently had an increase in her pressor requirement but it is on its way back down. The fentanyl constant infusion was discontinued and she is being maintained on Versed and fentanyl pushes. She is starting to wake up and follow some simple commands. Her oxygenation is better and her vent requirements have decreased significantly. She is being placed on CPAP trial this morning. Recommendations: 1. Neurologic: Acute delirium. Unclear etiology but possibly secondary to Covid infection with superimposed metabolic abnormalities. Currently on p.o. oxycodone and clonazepam. We will wean these down to 5 mg oxycodone every 6 h ours and clonazepam 0.5 mg daily and continue to use only pushes of fentanyl and Versed. 2. Cardiovascular: Hypotension: Stable pressor requirements. Continue to work on weaning as tolerated. 3. Pulmonary: Continue ARDSnet targets. Day #8 mechanical ventilation. Plateau pressures significantly improved. Completed RECOVERY dexamethasone - given ARDS, started on late phase decadron protocol - 20 mg for 5 days, then 10 mg daily for 5 days, started 10/21/2020. The small right apical pneumothorax as well as pneumomediastinum appear improved on the current film. No air leak on the chest tube. Continue for now while the patient is on positive pressure ventilation. May be able to transition to waterseal in the next 24 hours. Current blood gas 7.41/48/73 4. ID: Completed 5 days of azithromycin and Rocephin. Received Tocilizumab. White count remains elevated however is stable today. Surveillance cultures negative to date. PCT elevated of unclear significance in HD. Line sites look OK. Hold abx for now. 5. Renal: Likely ATN - multifactorial. Remains anuric. Renal replacement per nephrology. The patient is significantly improved with removal of volume. Mild hyponatremia, and hypokalemia. Replacement and management per nephrology. X- ray appears that the patient would benefit from additional volume removal if possible. 6. GI: No evidence of active ongoing GI bleeding. Continue PPI. Trickle tube feeds, holding advancing given pressor requirements 7. Endocrine: On dexamethasone. Glycemic control per protocol 8. Heme-onc: anemia. Continue to trend. No evidence of active ongoing bleeding. No indication for transfusion currently, but approaching transfusion threshold. Overall prognosis is guarded. DNR/DNI status. Remains critically ill but has had some additional improvement in the last 24 hours. Patient discussed with critical care bedside nurse. Attempted to contact patient spouse but no answer on phone. A total of 38 minutes critical care time was spent in evaluation management and coordination of care of this critically ill patient with multiple life-threatening issues Admission and Anticipated Discharge Date Admission Date: October 10, 2020 Subjective Patient is intubated and sedated but she is waking up and able to follow some commands. She is able to wiggle her toes and show me her thumbs and tracks to visual and voice directed commands. Review of Systems Review of Systems: Unobtainable due to endotracheal tube Physical Exam Constitutional: + mechanically ventilated and + overweight Neck: trachea midline, no thyromegaly Respiratory: normal respiratory effort, lungs clear to auscultation no respiratory distress Auscultation: + rales and + wheezes Cardiovascular: RRR, no murmur, no edema Gastrointestinal (Abdomen): normal bowel sounds, soft, nontender, no hepatosplenomegaly Musculoskeletal: Extremities: extremities normal to inspection Skin: no rashes, warm and dry Lymphatic: no cervical lymphadenopathy Results & Data Results & Data ([facility]) Vital Signs (Past 12 Hours) Vital Signs Temp Pulse Resp BP Pulse Ox 10/23/20 08:05 77 25 H 90 10/23/20 08:01 36.8 C 68 112/53 L 96 10/23/20 08:00 70 31 H 95 10/23/20 07:01 36.9 C 69 113/45 L 95 10/23/20 06:01 36.9 C 78 123/48 L 94 10/23/20 05:31 37.0 C 82 107/48 L 93 10/23/20 05:01 37.1 C 78 111/48 L 95 10/23/20 04:31 37.1 C 78 124/42 L 96 10/23/20 04:01 37.1 C 70 105/66 94 10/23/20 03:31 37.1 C 74 123/53 L 95 10/23/20 03:01 37.1 C 72 137/48 L 99 10/23/20 02:40 71 31 H 97 10/23/20 02:31 37.1 C 68 128/44 L 97 10/23/20 02:01 37.2 C 70 123/44 L 100 10/23/20 01:31 37.2 C 76 128/47 L 100 10/23/20 01:01 37.2 C 74 122/50 L 94 10/23/20 00:31 37.2 C 80 117/62 93 10/23/20 00:01 37.2 C 75 112/52 L 93 10/23/20 00:00 76 10/22/20 23:31 37.3 C 72 127/50 L 94 10/22/20 23:01 37.2 C 71 135/50 L 91 10/22/20 23:00 76 31 H 96 10/22/20 22:31 37.2 C 75 123/66 99 10/22/20 22:01 37.3 C 73 147/49 H 99 10/22/20 21:31 37.2 C 76 130/74 99 Critical Care Results & Data Vital Signs (Past 12 Hours) Vital Signs Temp Pulse Resp BP Pulse Ox 10/23/20 08:05 77 25 H 90 10/23/20 08:01 36.8 C 68 112/53 L 96 10/23/20 08:00 70 31 H 95 10/23/20 07:01 36.9 C 69 113/45 L 95 10/23/20 06:01 36.9 C 78 123/48 L 94 10/23/20 05:31 37.0 C 82 107/48 L 93 10/23/20 05:01 37.1 C 78 111/48 L 95 10/23/20 04:31 37.1 C 78 124/42 L 96 10/23/20 04:01 37.1 C 70 105/66 94 10/23/20 03:31 37.1 C 74 123/53 L 95 10/23/20 03:01 37.1 C 72 137/48 L 99 10/23/20 02:40 71 31 H 97 10/23/20 02:31 37.1 C 68 128/44 L 97 10/23/20 02:01 37.2 C 70 123/44 L 100 10/23/20 01:31 37.2 C 76 128/47 L 100 10/23/20 01:01 37.2 C 74 122/50 L 94 10/23/20 00:31 37.2 C 80 117/62 93 10/23/20 00:01 37.2 C 75 112/52 L 93 10/23/20 00:00 76 10/22/20 23:31 37.3 C 72 127/50 L 94 10/22/20 23:01 37.2 C 71 135/50 L 91 10/22/20 23:00 76 31 H 96 10/22/20 22:31 37.2 C 75 123/66 99 10/22/20 22:01 37.3 C 73 147/49 H 99 10/22/20 21:31 37.2 C 76 130/74 99 Lab & Micro Results (Past 24 Hours) RBC 2.83 M/uL (4.2-5.4) L 10/23/20 WBC 18.50 K/uL (4.8-10.8) H 10/23/20 Hgb 8.0 g/dL (12.0-16.0) L 10/23/20 Hct 24.5 % (37-47) L 10/23/20 MCV 86.6 fL (80-100) 10/23/20 MCH 28.3 pg (25-34) 10/23/20 MCHC 32.7 g/dL (32-36) 10/23/20 RDW Standard Deviation 51.1 fL (36.4-46.3) H 10/23/20 RDW Coefficient of Variation 18.0 % (11.5-14.5) H 10/23/20 Plt Count 182 K/uL (130-400) 10/23/20 MPV 11.2 fL (7.4-10.4) H 10/23/20 Nucleated Red Blood Cells % (auto) 1.5 % 10/23/20 Nucleated RBC Absolute Count (auto) 0.27 K/uL (0-0) H 10/23/20 Neutrophils (%) (Auto) 83.5 % 10/23/20 Lymphocytes (%) (Auto) 10.3 % 10/23/20 Monocytes # (Auto) 0.59 K/uL (0.11-0.59) 10/23/20 Eosinophils # (Auto) 0.10 K/uL (0-0.5) 10/23/20 Immature Granulocyte % (Auto) 2.2 % 10/23/20 Neutrophils # (Auto) 15.46 K/uL (1.4-6.5) H 10/23/20 Lymphocytes # (Auto) 1.90 K/uL (1.2-3.4) 10/23/20 Monocytes # (Auto) 0.59 K/uL (0.11-0.59) 10/23/20 Eosinophils # (Auto) 0.10 K/uL (0-0.5) 10/23/20 Basophils # (Auto) 0.05 K/uL (0-0.2) 10/23/20 Immature Granulocyte # (Auto) 0.40 K/uL (0.00-0.02) H 10/23/20 Na 133 mmol/L (136-145) L 10/23/20 K 3.4 mmol/L (3.5-5.1) L 10/23/20 Cl 98 mmol/L (98-107) 10/23/20 CO2 28 mmol/L (21-32) 10/23/20 Anion Gap 7.0 (3-11) 10/23/20 BUN 22 mg/dl (7-18) H 10/23/20 Creatinine 2.17 mg/dl (0.6-1.2) H 10/23/20 Estimated GFR ( Amer) 25.4 ml/min 10/23/20 Estimated GFR (Non-Af Amer) 21.9 ml/min 10/23/20 BUN/Creatinine Ratio 10.1 (10-20) 10/23/20 Glu 100 mg/dl (70-99) H 10/23/20 Ca 8.0 mg/dl (8.5-10.1) L 10/23/20 Phosphorus Level 3.3 mg/dl (2.5-4.9) 10/23/20 Total Bilirubin 0.3 mg/dl (0.2-1) 10/23/20 AST 23 U/L (15-37) 10/23/20 ALT 45 U/L (12-78) 10/23/20 Alkaline Phosphatase 139 U/L (45-117) H 10/23/20 TP 6.1 gm/dl (6.4-8.2) L 10/23/20 Albumin 1.9 gm/dl (3.4-5.0) L 10/23/20 Globulin 4.2 gm/dl (2.5-4.0) H 10/23/20 Albumin/Globulin Ratio 0.5 (0.9-2) L 10/23/20 Mg 2.4 mg/dl (1.8-2.4) 10/23/20 04:17 10/23/20 Calcium Level 8.0 mg/dl (8.5-10.1) L 10/23/20 04:17 10/23/20 Brandon Test NA 10/23/20 04:24 10/23/20 Microbiology 10/20/20 08:46 Aerobic Blood Culture - Preliminary Blood No growth in Aerobic bottle after 48 hours. Anaerobic Blood Culture - Preliminary No growth in Anaerobic bottle after 48 hours. 10/20/20 09:00 Aerobic Blood Culture - Preliminary Blood No growth in Aerobic bottle after 48 hours. Anaerobic Blood Culture - Preliminary No growth in Anaerobic bottle after 48 hours. 10/20/20 Unknown Gram Stain - Final Sputum,Vent Suction Sputum Culture - Final Light normal marcia. Diagnostic Findings (Past 24 Hours) Chest X-Ray 10/22/20 07:00 XR chest 1V portable HISTORY: Respiratory failure. covid pneumonia COMPARISON: Chest 10/21/2020. FINDINGS: Slight increase in size in the small right apical pneumothorax which demonstrates a pleural gap of 1.4 cm. There is a small amount of pneumomediastinum present. Left neck/chest wall subcutaneous emphysema is noted. The endotracheal tube terminates 2.9 cm from the sherie. Nasogastric tube terminates low the diaphragm. The tip is not included on this study. A right jugular central venous catheter likely terminates at the SVC. The tip is obscured by the cardiac monitoring lead. Patchy bilateral airspace opacities persist and are consistent with Covid pneumonia. IMPRESSION: 1. Satisfactory support line placement. 2. Increase in size in the small right apical pneumothorax. 3. Interval development of a small amount of pneumomediastinum. 4. These findings were called/faxed to the referring physician following dictation. ACT 112: Negative or not required by law. Electronically signed by: Jon Camacho M.D. 10/22/2020 10:22 AM Chest X-Ray 10/22/20 12:22 XR chest 1V portable HISTORY: 75 years-old Female chest tube placement acute respiratory failure COMPARISON: 10/22/2020 chest radiograph 5:50 AM TECHNIQUE: Portable AP view the chest FINDINGS: Endotracheal tube overlies the midline, 3.3 cm superior to the sherie. Enteric tube distal tip overlies the abdominal right upper quadrant in the expected location of the distal stomach versus proximal duodenum. Right IJ central venous catheter terminates in the expected location of the mid to inferior SVC. Status post placement of a right-sided chest tube with distal tip terminating adjacent to the medial right lung apex. Mild subcutaneous emphysema of the right lateral chest wall. Trace residual right apical pneumothorax. Extensive bilateral airspace opacities redemonstrated which have not significantly changed. Trace pneumomediastinum. Subcutaneous emphysema of the neck. Degenerative changes of the shoulders and spine. IMPRESSION: 1. Status post placement of a left-sided chest tube terminating adjacent to the medial left lung apex. Trace residual pneumothorax. 2. Subcutaneous emphysema of the chest wall with pneumomediastinum redemonstrated. 3. Extensive bilateral airspace opacities compatible with multifocal pneumonia redemonstrated. 4. Additional lines and tubes as above. ACT 112: Negative or not required by law. The above report was generated using voice recognition software. It may contain grammatical, syntax or spelling errors. Electronically signed by: Tristan Haider M.D. 10/22/2020 12:48 PM Chest X-Ray 10/23/20 07:00 XR chest 1V portable HISTORY: 75 years-old Female resp failure, chest tube acute respiratory failure COMPARISON: Chest radiograph 10/22/2020 TECHNIQUE: AP view of the chest FINDINGS: Endotracheal tube overlies the midline, 2.9 cm superior to the sherie. Enteric tube courses below the diaphragm outside the [id number]. Unchanged positioning of the right IJ central venous catheter and right-sided chest tube. No definite pneumothorax. Decreased subcutaneous emphysema of the chest wall with decreased pneumomediastinum. Extensive bilateral pulmonary opacities are redemonstrated. No large pleural effusion. IMPRESSION: 1. Lines and tubes as above. This includes stable positioning of the right apical chest tube without pneumothorax identified. 2. Extensive bilateral airspace opacities redemonstrated compatible with mul tifocal pneumonia. 3. Decreased pneumomediastinum and subcutaneous emphysema of the chest wall. ACT 112: Negative or not required by law. The above report was generated using voice recognition software. It may contain grammatical, syntax or spelling errors. Electronically signed by: Tristan Haider M.D. 10/23/2020 8:19 AM I & O Totals 24 Hours 10/22/20 10/23/20 10/24/20 06:59 06:59 06:59 Intake Total 1863.620 / 1863.620 847.559 / 847.559 43.69 / 43.69 Output Total 300 / 300 Balance 1862.620 / 1862.620 547.559 / 547.559 43.69 / 43.69 Cumulative 10/10/20 18:21 thru 10/23/20 08:46 Intake Total 69746.009 Output Total 4658 Balance 63048.009 RT Ventilator Mngmt (Last Documented) Ventilator Ordered Settings Ventilator Support Mode CPAP 10/23/20 08:05 Respiratory Rate 25 10/23/20 08:05 Ventilator Tidal Volume 300 10/23/20 08:00 Setting Minute Ventilation 8.3 10/23/20 08:05 Ventilator Positive Pressure 10 10/23/20 08:05 Support Setting Positive End Expiratory 5 10/23/20 08:05 Pressure Fraction of Inspired Oxygen 40 10/23/20 08:05 Peak Inspiratory Flow 40 10/23/20 08:00 Machine Comment Placed on CPAP 10/5 40% 10/23/20 08:00 Ventilator - PT Measurements Respiratory Rate 25 Exhaled Tidal Volume 330 Minute Ventilation 8.3 Peak Inspiratory Airway 17 Pressure Mean Airway Pressure 8 Plateau Pressure 19 Respiratory Cycle Inspiratory: 1:2.8 Expiratory Ratio Inspiratory Phase Time 0.51 End-Tidal CO2 34 Static Lung Compliance 31.50 Dynamic Lung Compliance 27.50 Normal Static Lung Compliance 47.[address] Suarez at bedside for assessment, evaluated patient while on CPAP Coding Level of Care Code Critical Care 1st 30-74 mins Diagnoses Pneumonia due to 2019 novel coronavirus U07.1; J12.82 Acute respiratory failure with hypoxemia J96.01 Bacterial pneumonia J15.9 Acute kidney injury N17.9 Metabolic acidosis E87.2 Time Spent (min) 38
--- NOTE | 2020-10-23 10:35 | Pharmacy Report ---
Pharmacy Glycemic Short Note 2 - Date of Service October 23, 2020 - Glycemic Short BSG Results (Last 24 hours): 10/22/20 10/22/20 10/23/20 12:31 17:13 00:24 Glucose POC Glucose 116 H POC Glucose (other) 142 H 110 H 10/23/20 04:17 Glucose 100 H POC Glucose POC Glucose (other) OUTPATIENT ANTIDIABETIC REGIMEN: * N/a * HbA1c = 6.5% (10/14/20) ASSESSMENT: 10/23 * Pt has received 7 units of insulin over the past 24hrs * 3 units of basal with Lantus * 4 units of bolus with NovoLog * BSGs [phone] mg/dl * Dexamethasone continues at 20mg IV daily - surprisingly not resulting in steroid induced severe hyperglycemia * Novosource renal continuous tube feedings continue to provide 11g CHO Q6hrs. CHO are being covered with NovoLog as ordered. * BSGs well controlled with current regimen. No changes needed at this time 10/21: * BSGs have been well controlled over last 24 hrs with minimal insulin needs * Only 4 units SQ administered in last 24 hrs and latest BSGs in 120-130s range * Of note, pressor requirements have increased over last 24 hrs, IV steroid dose has also increased and the carb content of TFs have increased due to change to Novasource Renal. * Current insulin orders are producing acceptable results despite new stressors - continue the same for now PLAN FOR INPATIENT GLYCEMIC CONTROL: * Basal insulin - * Lantus 0-3-5 units SC BID, depending on BSG * Bolus insulin * NovoLog per scale ACHS or Q6hrs while NPO * Goal Range: Low 110 mg/dL - High 140 mg/dL * Correction Factor: 25 mg/dL/unit * Nutritional / Prandial insulin per carb ratio of 1 unit per 10 grams CHO consumed PLAN FOR DISCHARGE: * HbA1c was 6.5% from this admission indicating patient has newly diagnosed Type 2 Diabetes. * Could consider dietary and lifestyle changes for now. * Support Patient Self-Management * Healthy Lifestyle (diet, exercise, and smoking cessation) * Disease self-management (SMBG) * Prevention of complications (BP, Lipid goals, Immunizations) * Consider outpatient Diabetes Self-Management Education & Support
[2020-10-23] MEDS: NOREPINEPHRINE/D5W 16 MG/500 ML BAG IV SCH (11:39)
[2020-10-23] MEDS: ASPIRIN 81 MG CHEW NG SCH (11:40)
--- NOTE | 2020-10-23 11:50 | Nephrology Progress Note ---
Date of Service October 23, 2020 Assessment & Plan (1) Acute kidney injury: (2) Metabolic acidosis: (3) Severe sepsis: (4) Hyponatremia: Plan: 75-year-old female admitted with COVID pneumonia. 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 Received Toclizumab 10/13/20. Completed Dexamethasone therapy. Remdesivir was stopped after 2 doses due to LENNOX, elevated LFT's. completed azithromycin. Has been having dialysis daily mainly for UF as she has been anuric and getting IV fluid with multiple infusions. Clinically there is some sign of improvement with decrease FiO2 requirement, decreased pressor requirement. Remained anuric with no sign of renal recovery. Electrolyte acceptable. Blood pressure acceptable. Maintaining oxygen saturation with FiO2 40 percent. Had 3 liters of UF yesterday. -- Plan for dialysis tomorrow and continue to monitor for renal recovery however overall prognosis remains guarded -- dose medications for GFR less than 10 Will follow Admission and Anticipated Discharge Date Admission Date: October 10, 2020 Sumeet Fregoso was seen and examined in ICU room, remains intubated and sedated. Maintaining oxygen saturation with FiO2 40 percent. Blood pressure acceptable. Electrolyte acceptable. Remained anuric. Had dialysis yesterday with 3 liters UF. Review of Systems Review of Systems: Review of system was not possible as patient intubated Physical Exam Constitutional: + ill appearing, + mechanically ventilated and + edematous; no acute distress Respiratory: Auscultation: + diminished lung sounds and + crackles; no wheezes Cardiovascular: Rate/Rhythm: regular rate and regular rhythm Heart Sounds: normal S1 and normal S2 Extremities: + edema Neurologic: moves all extremities and awake; not confused Psychiatric: A+Ox3, euthymic affect Results & Data ([facility] [place]) Vital Signs (Past 12 Hours) Vital Signs Temp Pulse Resp BP Pulse Ox 10/23/20 11:02 36.8 C 81 137/53 L 88 L 10/23/20 10:31 36.7 C 72 137/51 L 93 10/23/20 10:01 36.6 C 70 132/52 L 94 10/23/20 09:01 36.7 C 67 108/41 L 95 10/23/20 08:05 77 25 H 90 10/23/20 08:01 36.8 C 68 112/53 L 96 10/23/20 08:00 70 31 H 95 10/23/20 07:01 36.9 C 69 113/45 L 95 10/23/20 06:01 36.9 C 78 123/48 L 94 10/23/20 05:31 37.0 C 82 107/48 L 93 10/23/20 05:01 37.1 C 78 111/48 L 95 10/23/20 04:31 37.1 C 78 124/42 L 96 10/23/20 04:01 37.1 C 70 105/66 94 10/23/20 03:31 37.1 C 74 123/53 L 95 10/23/20 03:01 37.1 C 72 137/48 L 99 10/23/20 02:40 71 31 H 97 10/23/20 02:31 37.1 C 68 128/44 L 97 10/23/20 02:01 37.2 C 70 123/44 L 100 10/23/20 01:31 37.2 C 76 128/47 L 100 10/23/20 01:01 37.2 C 74 122/50 L 94 10/23/20 00:31 37.2 C 80 117/62 93 10/23/20 00:01 37.2 C 75 112/52 L 93 10/23/20 00:00 76 PG Care Time/CCT Total # of Minutes Spent Total Time Spent with Patient: Total time spent is greater than 50% in coordination of care (as documented) at patient's floor/unit and/or counseling patient: Coding Level of Care Code 98233 Subseq Hosp Care Lvl 3 Diagnoses Acute kidney injury N17.9 Metabolic acidosis E87.2 Severe sepsis A41.9; R65.20 Hyponatremia E87.1
[2020-10-23] MEDS: fentaNYL citrate 2,500 MCG/250 ML BAG IV SCH (17:09)
--- NOTE | 2020-10-23 19:31 | Hospitalist Progress Note ---
Date of Service October 23, 2020 Assessment & Plan (1) Acute respiratory failure with hypoxemia: Plan: Acute respiratory failure with hypoxemia 2/2 Covid pneumonia complicated by renal failure Covid positive, - On extended Decadron protocol Date of intubation: 10/16/2020 Current management per ICU, appreciate assistance. FiO2 requirement decreasing, pressor requirement was decreasing however required increase again this afternoon Patient completed prior 5-day course of azithromycin/Rocephin for superimposed infection, no additional antibiotics indicated at this time Remdesivir - first dose given on 10/10. Received dose #2 on 10/11. - Due to development of LENNOX and transaminitis the remdesivir was stopped after 2nd dose. -s/p Tocilizumab - 10/13/20. -s/p full 5-day course of rocephin/zithromax. -s/p intubation on 10/16/20 with mechanical ventilation since then. (2) Severe sepsis: Plan: -2nd to COVID-19 pneumonia. -Continues with need for pressors (levophed) per ICU -Continue supportive care. (3) Acute kidney injury: Plan: -ATN due to COVID-19 (and/or remdesivir) with resulting severe acute renal failure. -Remains anuric. -Temporary HD catheter placed 10/15. -post HD: 10/17, 10/18, 10/21. Dissipate dialysis 10/24 Daily BMP -Baseline Cr 0.9. -Daily BMP. -Appreciate nephrology assistance. (4) Pneumonia due to 2019 novel coronavirus: Plan: - Management as noted in AHRF - Remains critically ill. (5) Bacterial pneumonia: Plan: s/p ceftriaxone + azithromycin x 5 days earlier this stay. Most recent procal wnl. Now off IV abx. Additional antibiotics indicated at this (6) Hypotension: Plan: 2nd to severe sepsis, COVID-19, medications (propofol), etc. Continue levophed as needed. (7) Elevated troponin: Plan: -Peak trop 0.154. -2nd to myocardial demand ischemia. (8) Elevated d-dimer: Plan: -4890 on admission (10/10/20). -LE dopplers negative for DVT b/l. -Unable to perform CT to r/o PE due to LENNOX. (9) Elevated liver enzymes: Plan: -transaminitis 2nd to COVID-19. -ast/alt normalized (10) Hypokalemia: Plan: Resolved (11) Metabolic acidosis: Plan: 2nd to acute renal failure and severe sepsis. ongoing. defer Rx to ICU team. (12) Fecal occult blood test positive: Plan: -Melanic stools on second day of admission. -Cont PPI for GI prophylaxis. -Hb remains acceptable. (13) Hyponatremia: Plan: -Mild, ongoing, 2nd LENNOX/ARF. -Daily bmp. (14) Pneumothorax: Plan: Chest tube placed by critical care team Plan: -appreciate ICU and palliative care assistance -family meeting with palliative took place on 10/19 -- patient made DNR, no transfer to tertiary care- but otherwise continue current care plan (HD, mech ventilation, etc). Patient remains critically ill, some improvement in FiO2. Remains anuric, Levophed weaned to 0.02 mcg/h. Continue to follow Admission and Anticipated Discharge Date Admission Date: October 10, 2020 Subjective Case discussed with care team, exam deferred to minimize COVID-19 transmission. Patient continues on mechanical ventilation since 10/16 with decreasing FiO2 yesterday and currently on 40% pressor requirements again decreasing after uptrending yesterday. Chest tube in place. Review of Systems Review of Systems: Unobtainable due to endotracheal tube Physical Exam Physical Exam: Exam deferred to minimize transmission of COVID-19 during pandemic. Results & Data Results & Data ([facility]) Vital Signs (Past 12 Hours) Vital Signs Temp Pulse Resp BP Pulse Ox 10/23/20 06:01 36.9 C 78 123/48 L 94 10/23/20 05:31 37.0 C 82 107/48 L 93 10/23/20 05:01 37.1 C 78 111/48 L 95 10/23/20 04:31 37.1 C 78 124/42 L 96 10/23/20 04:01 37.1 C 70 105/66 94 10/23/20 03:31 37.1 C 74 123/53 L 95 10/23/20 03:01 37.1 C 72 137/48 L 99 10/23/20 02:40 71 31 H 97 10/23/20 02:31 37.1 C 68 128/44 L 97 10/23/20 02:01 37.2 C 70 123/44 L 100 10/23/20 01:31 37.2 C 76 128/47 L 100 10/23/20 01:01 37.2 C 74 122/50 L 94 10/23/20 00:31 37.2 C 80 117/62 93 10/23/20 00:01 37.2 C 75 112/52 L 93 10/23/20 00:00 76 10/22/20 23:31 37.3 C 72 127/50 L 94 10/22/20 23:01 37.2 C 71 135/50 L 91 10/22/20 23:00 76 31 H 96 10/22/20 22:31 37.2 C 75 123/66 99 10/22/20 22:01 37.3 C 73 147/49 H 99 10/22/20 21:31 37.2 C 76 130/74 99 10/22/20 21:01 37.2 C 78 137/84 95 10/22/20 20:31 37.3 C 73 93/45 L 94 10/22/20 20:01 37.1 C 73 135/49 L 96 10/22/20 19:23 73 30 H 98 PG Care Time/CCT Total # of Minutes Spent Total Time Spent with Patient: Total time spent is greater than 50% in coordination of care (as documented) at patient's floor/unit and/or counseling patient: Coding Level of Care Code 03897 Subseq Hosp Care Lvl 1 Diagnoses Acute respiratory failure with hypoxemia J96.01 Severe sepsis A41.9; R65.20 Acute kidney injury N17.9 Pneumonia due to 2019 novel coronavirus U07.1; J12.82 Bacterial pneumonia J15.9 Hypotension I95.9 Elevated troponin R77.8 Elevated d-dimer R79.89 Elevated liver enzymes R74.8 Hypokalemia E87.6 Metabolic acidosis E87.2 Fecal occult blood test positive R19.5 Hyponatremia E87.1 Pneumothorax J93.9
[2020-10-24] MEDS: TUBE FEEDING WATER FLUSH GT SCH ×5 (04:17→19:48)
[2020-10-24 04:57] LABS: Basophilic Stippling Occasional; Basophils # (auto) 0.01 K/uL (0-0.2); Basophils % (auto) 0.1 %; Eosinophils # (auto) 0.05 K/uL (0-0.5); Eosinophils % (auto) 0.4 %; Immature Granulocytes % (auto) 1.6 %; Lymphocytes # (auto) 1.22 K/uL (1.2-3.4); Lymphocytes % (auto) 9.8 %; Mean Corpuscular Hemoglobin 28.7 pg (25-34); Mean Corpuscular Hgb Conc 33.3 g/dL (32-36); Mean Corpuscular Volume 86.1 fL (80-100); Mean Platelet Volume 11.1 fL (7.4-10.4); Monocytes # (auto) 0.43 K/uL (0.11-0.59); Monocytes % (auto) 3.4 %; Neutrophils % (auto) 84.7 %; Nucleated RBC # (auto) 0.06 K/uL (0-0); Nucleated RBC % (auto) 0.5 %; Platelet Count 153 K/uL (130-400); Polychromasia 1+; RDW Coefficient of Variation 18.1 % (11.5-14.5); RDW Standard Deviation 50.8 fL (36.4-46.3); Red Blood Count 2.44 M/uL (4.2-5.4); Schistocytes 1+; White Blood Count 12.51 K/uL (4.8-10.8)
[2020-10-24 05:04] LABS: Alanine Aminotransferase 37 U/L (12-78); Albumin Globulin Ratio 0.5 (0.9-2); Albumin Level 1.8 gm/dl (3.4-5.0); Aspartate Aminotransferase 20 U/L (15-37); BUN Creatinine Ratio 12.8 (10-20); Bilirubin,Total 0.3 mg/dl (0.2-1); Blood Urea Nitrogen 49 mg/dl (7-18); Calcium 7.8 mg/dl (8.5-10.1); Carbon Dioxide 26 mmol/L (21-32); Chloride 99 mmol/L (98-107); Creatinine Clr Calc Pharmacy 10.5 ml/min; Est GFR (African American) 12.8 ml/min; Globulin 3.7 gm/dl (2.5-4.0); Glucose 82 mg/dl (70-99); Magnesium 2.4 mg/dl (1.8-2.4); Phosphorus 5.5 mg/dl (2.5-4.9); Potassium 3.6 mmol/L (3.5-5.1); Sodium 130 mmol/L (136-145); Total Protein 5.5 gm/dl (6.4-8.2)
[2020-10-24 05:06] LABS: Alkaline Phosphatase 107 U/L (45-117); Troponin I < 0.015 ng/ml (0-0.045)
[2020-10-24 05:14] LABS: iSTAT Art Bld Gas pCO2 Correct 43 mmHg (35-46); iSTAT Art Bld Gas pH Corrected 7.416 (7.35-7.45); iSTAT Arterial Blood Gas HCO3 28 meg/L (19-24); iSTAT Arterial Blood Gas pCO2 43 mmHg (35-46); iSTAT Arterial Blood Gas pH 7.41 (7.35-7.45); iSTAT Arterial Blood Gas pO2 67 mmHg (80-95); iSTAT Arterial Blood Gas pO2 C 66; iSTAT Carbon Dioxide 29 mmol/L (24-31); iSTAT FiO2 40 %; iSTAT Hematocrit 19 % (37-47); iSTAT Hemoglobin 6.5 g/dl (12.0-16.0); iSTAT Potassium 3.6 mmol/L (3.3-5.0); iSTAT Site Art Line; iSTAT Sodium 130 mmol/L (135-144)
[2020-10-24] MEDS: oxyCODONE HCL IR 5 MG TAB (IMMEDIATE RELEASE) NG SCH ×3 (05:45→18:22)
[2020-10-24] MEDS: HEPARIN SOD 5,000 UNIT/0.5 ML VIAL SQ SCH (05:45)
[2020-10-24] MEDS: INSULIN GLARGINE SOLOSTAR 100 UNITS/ML 3 ML PEN SC SCH ×2 (05:46→18:08)
[2020-10-24] MEDS: INSULIN ASPART 100 UNITS/ML 3 ML PEN SC SCH ×3 (05:46→18:08)
--- NOTE | 2020-10-24 07:26 | XRay Report ---
XR chest 1V portable HISTORY: 75 years-old Female resp failure, chest tube acute respiratory failure COMPARISON: 10/23/2020 TECHNIQUE: AP view of the chest FINDINGS: Endotracheal tube terminates 3.6 cm superior to the sherie. Enteric tube courses below the diaphragm outside the [id number]. Unchanged positioning of the right IJ central venous catheter and right ap ical chest tube. Mild persistent subcutaneous emphysema of the chest wall with pneumomediastinum. Ext ensive bilateral airspace opacities have mildly improved. No pneumothorax or large pleural effusion. IMPRESSION: 1. Lines and tubes as above. 2. Mild improvement of the extensive bilateral airspace opacities. 3. Mild persistent pneumomediastinum and subcutaneous emphysema of the chest wall. 4. No pneumothorax identified. ACT 112: Negative or not required by law. The above report was generated using voice recognition software. It may contain grammatical, syntax o r spelling errors. Electronically signed by: Tristan Haider M.D. 10/24/2020 7:24 AM
[2020-10-24] MEDS: PANTOprazole 40 MG in SYRINGE 0 ML IV SCH ×2 (08:52→19:48)
[2020-10-24] MEDS: dexAMETHasone 20 MG in DEXTROSE 5% 25 ML IV SCH (08:52)
[2020-10-24] MEDS: ESCITALOPRAM OXALATE ORAL SOLN 20 MG/20 ML UDP PO SCH (08:52)
[2020-10-24] MEDS: clonazePAM 0.5 MG TAB PO SCH (08:53)
[2020-10-24] MEDS: NOREPINEPHRINE/D5W 16 MG/500 ML BAG IV SCH (09:00)
[2020-10-24] MEDS ORDERED: SODIUM CHLORIDE 0.9% 250 ML IV PRN (10:27)
[2020-10-24 10:57] LABS: Fibrinogen 757 mg/dl (184-400); Partial Thromboplastin Ratio 2.3; Prothrombin Time 10.2 Seconds (9.0-12.0)
[2020-10-24 10:59] LABS: Partial Thromboplastin Time 61.4 Seconds (21.0-31.0)
--- NOTE | 2020-10-24 11:38 | Critical Care Progress Note ---
Date of Service October 24, 2020 Assessment & Plan (1) Pneumonia due to 2019 novel coronavirus: (2) Acute respiratory failure with hypoxemia: (3) Bacterial pneumonia: (4) Acute kidney injury: (5) Metabolic acidosis: Plan: Impression: 75-year-old female admitted with COVID-19 pneumonia. Course has been complicated by acute delirium requiring intubation, initiation of vasopressors for shock, ARDS, as well as acute renal failure requiring initiation of hemodialysis. Recommendations: 1. Neurologic: Delirium improving. Currently off all continuous sedation. Currently on p.o. oxycodone and clonazepam. We will wean these down to 5 mg oxycodone every 6 hours and clonazepam 0.5 mg daily and continue to use only pushes of fentanyl and Versed. 2. Cardiovascular: Hypotension: Stable pressor requirements. Continue to work on weaning as tolerated. 3. Pulmonary: Continue ARDSnet targets. Day #9 mechanical ventilation. Plateau pressures significantly improved. Completed RECOVERY dexamethasone - given ARDS, started on late phase decadron protocol - 20 mg for 5 days, then 10 mg daily for 5 days, started 10/21/2020. The small right apical pneumothorax as well as pneumomediastinum appear improved on the current film. Chest x-ray clamped currently. We will repeat a chest x-ray 2 PM today. Will leave in place while patient is on positive pressure. 4. ID: Completed 5 days of azithromycin and Rocephin. Received Tocilizumab. No signs of infection at present. 5. Renal: Likely ATN - multifactorial. Remains anuric. Renal replacement per nephrology. The patient is significantly improved with removal of volume. Mild hyponatremia, and hypokalemia. Replacement and management per nephrology. X- ray appears that the patient would benefit from additional volume removal if possible. 6. GI: No evidence of active ongoing GI bleeding. Continue PPI. Trickle tube feeds, holding advancing given pressor requirements 7. Endocrine: On dexamethasone. Glycemic control per protocol 8. Heme-onc: Hemoglobin dropped to 7.0. Will receive 1 unit of blood today. Checking coagulation studies. Holding DVT prophylaxis for chemical prophylaxis. Overall prognosis is guarded. DNR/DNI status. Remains critically ill but has had some additional improvement in the last 24 hours. updated today. CRITICAL CARE TIME - I have personally spent 36 minutes of critical care time in the direct managem ent of this patient. This is a life/limb threatening event. This includes time spent evaluating patient, direct bedside care, chart review, placing orders, interpretation of diagnostic studies, discussion with consultants, patient, and family members, as well as other required patient management activities. This time is exclusive of all separately billable procedures, and teaching time and separate from and in addition to any other critical care service time. Admission and Anticipated Discharge Date Admission Date: October 10, 2020 Subjective Patient seen and examined this morning. Off sedation. Following commands intermittently. Currently on dialysis. Requiring low-dose of Levophed to maintain mean arterial pressures above 65. Review of Systems Review of Systems: Unobtainable due to intubation status Physical Exam Constitutional: + mechanically ventilated and + overweight Neck: trachea midline, no thyromegaly Respiratory: normal respiratory effort, lungs clear to auscultation no respiratory distress Auscultation: + rales and + wheezes Cardiovascular: RRR, no murmur, no edema Gastrointestinal (Abdomen): normal bowel sounds, soft, nontender, no hepatosplenomegaly Musculoskeletal: Extremities: extremities normal to inspection Skin: no rashes, warm and dry Lymphatic: no cervical lymphadenopathy Results & Data Results & Data ([facility]) Vital Signs (Past 12 Hours) Vital Signs Temp Pulse Pulse Resp BP Pulse Ox 10/24/20 11:20 72 102/63 10/24/20 11:05 68 110/51 L 10/24/20 10:50 63 113/63 10/24/20 10:47 59 L 32 H 94 10/24/20 10:35 70 96/42 L 10/24/20 10:20 72 101/49 L 10/24/20 10:05 71 109/49 L 10/24/20 09:50 69 115/47 L 10/24/20 09:35 68 109/50 L 10/24/20 09:21 97.3 F L 90 94/43 L 86 L 10/24/20 09:20 90 94/43 L 10/24/20 09:03 97.3 F L 70 90/44 L 94 10/24/20 09:02 67 125/50 L 10/24/20 08:51 97.3 F L 66 10/24/20 08:01 97.3 F L 70 92/49 L 93 10/24/20 07:45 72 27 H 93 10/24/20 07:01 97.7 F 65 110/46 L 95 10/24/20 06:01 97.7 F 67 97/45 L 96 10/24/20 05:31 97.7 F 66 96/44 L 95 10/24/20 05:01 97.7 F 62 97/47 L 95 10/24/20 04:31 97.9 F 64 102/48 L 93 10/24/20 04:01 98.1 F 63 95/43 L 95 10/24/20 03:32 68 30 H 96 10/24/20 03:31 98.1 F 69 110/43 L 96 10/24/20 03:01 98.2 F 64 104/45 L 99 10/24/20 02:31 98.2 F 67 101/37 L 98 10/24/20 02:01 98.2 F 64 99/46 L 98 10/24/20 01:31 98.4 F 64 99/38 L 98 10/24/20 01:01 98.4 F 68 101/44 L 97 10/24/20 00:31 98.4 F 66 107/41 L 98 10/24/20 00:01 98.4 F 63 98/41 L 99 vital signs, labs and imaging personally reviewed Coding Level of Care Code Critical Care 1st 30-74 mins Diagnoses Pneumonia due to 2019 novel coronavirus U07.1; J12.82 Acute respiratory failure with hypoxemia J96.01 Bacterial pneumonia J15.9 Acute kidney injury N17.9 Metabolic acidosis E87.2 Time Spent (min) 36
[2020-10-24] MEDS: NOVASOURCE RENAL 2.0 CAL 1000ML BAG GT SCH (12:59)
[2020-10-24] MEDS: MIDAZOLAM HCL 1 MG/ML 2ML VIAL IV PRN (13:08)
[2020-10-24] MEDS: ASPIRIN 81 MG CHEW NG SCH (13:37)
--- NOTE | 2020-10-24 15:45 | XRay Report ---
XR chest 1V portable CLINICAL HISTORY: right chest tube clamped COMPARISON STUDY: October 25, 2019 FINDINGS: No pneumothorax. Redemonstration of few linear lucencies at the anatomical region of mediastinum which also outline ca rdiac silhouette and might represent unchanged pneumomediastinum and pneumopericardium. Minimal silhouetting of the left hemidiaphragm which might represent small pleural effusion. Redemons tration of mixed reticular and airspace opacities throughout bilateral lungs with few air bronchogram s within retrocardiac region could represent infiltrative process/pneumonia. Tip of endotracheal tube is projecting 3.5 cm above sherie. Stable position of gastric tube, tip and fenestrated side-port are outside of [id number] and below level of the hemidiaphragm. Stable position of right-sided central venous catheter and right-sided chest tube. Cardiomediastinal silhouette is within normal limits in size. Pulmonary vasculature is obscured.. Osseous structures: Mild degenerative changes of the left shoulder. IMPRESSION: 1. Right chest tube is in unchanged position. No evidence of pneumothorax. 2. Redemonstration of pneumomediastinum in pneumopericardium, stable since prior. 3. Multifocal airspace opacities, not significantly changed since prior. Possible trace left pleural effusion. 4. Tip of endotracheal tube is projecting 3.5 cm above sherie. The rest of support apparatus as abov e. ACT 112: Negative or not required by law. The above report was generated using voice recognition software. It may contain grammatical, syntax o r spelling errors. Electronically signed by: Ainsley Pulido DO 10/24/2020 3:43 PM
--- NOTE | 2020-10-24 16:26 | Electrocardiogram Report ---
Test Reason : Blood Pressure : / mmHG Vent. Rate : 068 BPM Atrial Rate : 068 BPM P-R Int : 134 ms QRS Dur : 082 ms QT Int : 412 ms P-R-T Axes : 024 020 049 degrees QTc Int : 438 ms Normal sinus rhythm Normal ECG When compared with ECG of 11-OCT-2020 06:18, No significant change was found Confirmed by Hakeem Sin ([id number]) on 10/24/2020 4:26:35 PM Referred By: REFERRED SELF Confirmed By:Hakeem Sin
--- NOTE | 2020-10-24 16:51 | Nephrology Progress Note ---
Date of Service October 24, 2020 Assessment & Plan (1) Acute kidney injury: Plan: Baseline creatinine <1 mg/dL. LENNOX c/w ATN. No signs of renal recovery; remains anuric. Start HD 10/15. Dialysis catheter functioning well. CXR reviewed. FLuid retention remains a concern. Orders for HD today reviewed with HD nurse. Tolerated treatment reasonably well. Levophed provided for BP support to enable UF. Will evaluate tomorrow AM for possible additional HD. Document I/O's. Repeat metabolic profile tomorrow AM. Medications currently appropriately dosed for kidney dysfunction. (2) Anemia: Plan: 1 u PRBC transfusion support provided today. Peripheral smear reviewed. Heparin held with HD. Repeat tomorrow AM. (3) Pneumonia due to 2019 novel coronavirus: Plan: Received Toclizumab 10/13/20. Completed Dexamethasone therapy. Remdesivir held due to LENNOX, elevated LFT's. Prognosis guarded - COVID pneumonia requiring mechanical ventilation, pressor support, LENNOX requiring HD. Admission and Anticipated Discharge Date Admission Date: October 10, 2020 Subjective I did not personally examine the patient today due to COVID. I discussed the patient with Dr. Knowles and the bedside nurse. The patient was seen from outside her room during hemodialysis. I discussed the plan of care with the dialysis nurse. Levophed gtt restarted during HD for BP support. [place] remains anuric. Review of Systems Review of Systems: Unobtainable due to cognitive status and Unobtainable due to endotracheal tube Physical Exam Physical Exam: Deferred due to COVID. FIO2 40%; VT 300; PEEP 5. Results & Data ([facility]) Vital Signs (Past 12 Hours) Vital Signs Temp Pulse Pulse Pulse Resp BP BP 10/24/20 14:40 62 33 H 10/24/20 13:40 36.7 C 67 65 167/58 H 10/24/20 13:26 36.7 C 67 27 H 167/58 H 10/24/20 13:15 36.7 C 78 26 H 144/56 H 10/24/20 13:00 36.8 C 78 22 111/46 L 10/24/20 12:48 36.7 C 78 26 H 97/45 L 10/24/20 12:34 36.7 C 81 25 H 124/49 L 10/24/20 12:20 78 97/45 L 10/24/20 12:05 76 105/47 L 10/24/20 11:50 78 103/46 L 10/24/20 11:35 65 103/44 L 10/24/20 11:20 72 102/63 10/24/20 11:05 68 110/51 L 10/24/20 10:50 63 113/63 10/24/20 10:47 59 L 32 H 10/24/20 10:35 70 96/42 L 10/24/20 10:20 72 101/49 L 10/24/20 10:05 71 109/49 L 10/24/20 09:50 69 115/47 L 10/24/20 09:35 68 109/50 L 10/24/20 09:21 36.3 C L 90 94/43 L 10/24/20 09:20 90 94/43 L 10/24/20 09:03 36.3 C L 70 90/44 L 10/24/20 09:02 67 125/50 L 10/24/20 08:51 36.3 C L 66 10/24/20 08:01 36.3 C L 70 92/49 L 10/24/20 07:45 72 27 H 10/24/20 07:01 36.5 C 65 110/46 L 10/24/20 06:01 36.5 C 67 97/45 L 10/24/20 05:31 36.5 C 66 96/44 L 10/24/20 05:01 36.5 C 62 97/47 L Pulse Ox 10/24/20 14:40 94 10/24/20 13:40 10/24/20 13:26 98 10/24/20 13:15 93 10/24/20 13:00 93 10/24/20 12:48 91 10/24/20 12:34 92 10/24/20 12:20 10/24/20 12:05 10/24/20 11:50 10/24/20 11:35 10/24/20 11:20 10/24/20 11:05 10/24/20 10:50 10/24/20 10:47 94 10/24/20 10:35 10/24/20 10:20 10/24/20 10:05 10/24/20 09:50 10/24/20 09:35 10/24/20 09:21 86 L 10/24/20 09:20 10/24/20 09:03 94 10/24/20 09:02 10/24/20 08:51 10/24/20 08:01 93 10/24/20 07:45 93 10/24/20 07:01 95 10/24/20 06:01 96 10/24/20 05:31 95 10/24/20 05:01 95 Laboratory Results Laboratory Results - last 24 hr 10/23/20 10/23/20 10/23/20 06:19 17:21 23:06 WBC RBC Hgb POC Hgb Hct POC Hct MCV MCH MCHC RDW Std Deviation RDW Coeff of Roxanna Plt Count MPV Immature Gran % (Auto) Neut % (Auto) Lymph % (Auto) [place] % (Auto) Eos % (Auto) Baso % (Auto) Neut # (Auto) Lymph # (Auto) [place] # (Auto) Eos # (Auto) Baso # (Auto) Immature Gran # (Auto) Absolute Nucleated RBC Nucleated RBC % (auto) Polychromasia Basophilic Stippling Schistocytes Peripher Smr Path Cons PT INR APTT PTT Ratio Fibrinogen Sample Site POC pH POC pCO2 POC pO2 POC HCO3 POC Total CO2 POC Base Excess ABG pH (Temp Correct) ABG pCO2 (Temp Corrct POC ABG pO2 at Pt Temp POC ABG O2 Sat Brandon Test O2 Delivery Device POC O2 Rate POC FiO2 Tidal Volume PEEP POC Sodium Sodium POC Potassium Potassium Chloride Carbon Dioxide Anion Gap BUN Creatinine Est Cr Clr Drug Dosing Est GFR ( Amer) Est GFR (Non-Af Amer) BUN/Creatinine Ratio Glucose POC Glucose 105 H POC Glucose (other) 114 H 141 H Calcium Phosphorus Magnesium Total Bilirubin AST ALT Alkaline Phosphatase Troponin I Total Protein Albumin Globulin Albumin/Globulin Ratio Blood Type Antibody Screen Crossmatch 10/24/20 10/24/20 10/24/20 04:24 04:24 04:24 WBC 12.51 H RBC 2.44 L Hgb 7.0 L POC Hgb Hct 21.0 L POC Hct MCV 86.1 MCH 28.7 MCHC 33.3 RDW Std Deviation 50.8 H RDW Coeff of Roxanna 18.1 H Plt Count 153 MPV 11.1 H Immature Gran % (Auto) 1.6 Neut % (Auto) 84.7 Lymph % (Auto) 9.8 [place] % (Auto) 3.4 Eos % (Auto) 0.4 Baso % (Auto) 0.1 Neut # (Auto) 10.60 H Lymph # (Auto) 1.22 [place] # (Auto) 0.43 Eos # (Auto) 0.05 Baso # (Auto) 0.01 Immature Gran # (Auto) 0.20 H Absolute Nucleated RBC 0.06 H Nucleated RBC % (auto) 0.5 Polychromasia 1+ Basophilic Stippling Occasional Schistocytes 1+ Peripher Smr Path Cons Cancelled PT INR APTT PTT Ratio Fibrinogen Sample Site POC pH POC pCO2 POC pO2 POC HCO3 POC Total CO2 POC Base Excess ABG pH (Temp Correct) ABG pCO2 (Temp Corrct POC ABG pO2 at Pt Temp POC ABG O2 Sat Brandon Test O2 Delivery Device POC O2 Rate POC FiO2 Tidal Volume PEEP POC Sodium Sodium 130 L POC Potassium Potassium 3.6 Chloride 99 Carbon Dioxide 26 Anion Gap 5.0 BUN 49 H D Creatinine 3.82 H D Est Cr Clr Drug Dosing 10.5 Est GFR ( Amer) 12.8 Est GFR (Non-Af Amer) 11.0 BUN/Creatinine Ratio 12.8 Glucose 82 POC Glucose POC Glucose (other) Calcium 7.8 L Phosphorus 5.5 H D Magnesium 2.4 Total Bilirubin 0.3 AST 20 ALT 37 Alkaline Phosphatase 107 Troponin I < 0.015 Total Protein 5.5 L Albumin 1.8 L Globulin 3.7 Albumin/Globulin Ratio 0.5 L Blood Type Antibody Screen Crossmatch 10/24/20 10/24/20 10/24/20 04:32 05:37 10:20 WBC RBC Hgb POC Hgb 6.5 L* Hct POC Hct 19 L* MCV MCH MCHC RDW Std Deviation RDW Coeff of Roxanna Plt Count MPV Immature Gran % (Auto) Neut % (Auto) Lymph % (Auto) [place] % (Auto) Eos % (Auto) Baso % (Auto) Neut # (Auto) Lymph # (Auto) [place] # (Auto) Eos # (Auto) Baso # (Auto) Immature Gran # (Auto) Absolute Nucleated RBC Nucleated RBC % (auto) Polychromasia Basophilic Stippling Schistocytes Peripher Smr Path Cons PT 10.2 INR 1.0 APTT 61.4 H* PTT Ratio 2.3 Fibrinogen 757 H Sample Site Art Line POC pH 7.41 POC pCO2 43 POC pO2 67 L POC HCO3 28 H POC Total CO2 29 POC Base Excess 3.0 H ABG pH (Temp Correct) 7.416 ABG pCO2 (Temp Corrct 43 POC ABG pO2 at Pt Temp 66 POC ABG O2 Sat 93.0 Brandon Test NA O2 Delivery Device Ventilator POC O2 Rate 26 POC FiO2 40 Tidal Volume 300 PEEP 5 POC Sodium 130 L Sodium POC Potassium 3.6 Potassium Chloride Carbon Dioxide Anion Gap BUN Creatinine Est Cr Clr Drug Dosing Est GFR ( Amer) Est GFR (Non-Af Amer) BUN/Creatinine Ratio Glucose POC Glucose 105 H POC Glucose (other) Calcium Phosphorus Magnesium Total Bilirubin AST ALT Alkaline Phosphatase Troponin I Total Protein Albumin Globulin Albumin/Globulin Ratio Blood Type Antibody Screen Crossmatch 10/24/20 10/24/20 10/24/20 10:24 13:20 16:08 WBC RBC Hgb Pending POC Hgb Hct Pending POC Hct MCV MCH MCHC RDW Std Deviation RDW Coeff of Roxanna Plt Count MPV Immature Gran % (Auto) Neut % (Auto) Lymph % (Auto) [place] % (Auto) Eos % (Auto) Baso % (Auto) Neut # (Auto) Lymph # (Auto) [place] # (Auto) Eos # (Auto) Baso # (Auto) Immature Gran # (Auto) Absolute Nucleated RBC Nucleated RBC % (auto) Polychromasia Basophilic Stippling Schistocytes Peripher Smr Path Cons PT INR APTT PTT Ratio Fibrinogen Sample Site POC pH POC pCO2 POC pO2 POC HCO3 POC Total CO2 POC Base Excess ABG pH (Temp Correct) ABG pCO2 (Temp Corrct POC ABG pO2 at Pt Temp POC ABG O2 Sat Brandon Test O2 Delivery Device POC O2 Rate POC FiO2 Tidal Volume PEEP POC Sodium Sodium POC Potassium Potassium Chloride Carbon Dioxide Anion Gap BUN Creatinine Est Cr Clr Drug Dosing Est GFR ( Amer) Est GFR (Non-Af Amer) BUN/Creatinine Ratio Glucose POC Glucose POC Glucose (other) 152 H Calcium Phosphorus Magnesium Total Bilirubin AST ALT Alkaline Phosphatase Troponin I Total Protein Albumin Globulin Albumin/Globulin Ratio Blood Type O Positive Antibody Screen NEGATIVE Crossmatch See Detail PG Care Time/CCT Total # of Minutes Spent Total Time Spent with Patient: Total time spent is greater than 50% in coordination of care (as documented) at patient's floor/unit and/or counseling patient: Coding Level of Care Code 52453 Subseq Hosp Care Lvl 3 Diagnoses Acute kidney injury N17.9 Anemia D64.9 Pneumonia due to 2019 novel coronavirus U07.1; J12.82
[2020-10-24 17:02] LABS: Hematocrit (blood only) 31.9 % (37-47); Hemoglobin 10.9 g/dL (12.0-16.0)
--- NOTE | 2020-10-24 22:06 | Hospitalist Progress Note ---
Date of Service October 24, 2020 Assessment & Plan (1) Acute respiratory failure with hypoxemia: Plan: Acute respiratory failure with hypoxemia 2/2 Covid pneumonia complicated by renal failure Covid positive, - On extended Decadron protocol Date of intubation: 10/16/2020 Current management per ICU, appreciate assistance. FiO2 requirement decreasing Patient completed prior 5-day course of azithromycin/Rocephin for superimposed infection, no additional antibiotics indicated at this time Remdesivir - first dose given on 10/10. Received dose #2 on 10/11. - Due to development of LENNOX and transaminitis the remdesivir was stopped after 2nd dose. -s/p Tocilizumab - 10/13/20. -s/p full 5-day course of rocephin/zithromax. -s/p intubation on 10/16/20 with mechanical ventilation since then plan for removal of chest tube, hopeful for extubation tomorrow (2) Severe sepsis: Plan: -2nd to COVID-19 pneumonia. -no signs of shock at this time, BP stable -Continue supportive care. (3) Acute kidney injury: Plan: -ATN due to COVID-19 (and/or remdesivir) with resulting severe acute renal failure. -Temporary HD catheter placed 10/15. -post HD: 10/17, 10/18, 10/21. tolerated HD on 10/24 Daily BMP -Appreciate nephrology assistance. (4) Pneumonia due to 2019 novel coronavirus: Plan: - Management as noted in AHRF - Remains critically ill. (5) Bacterial pneumonia: Plan: s/p ceftriaxone + azithromycin x 5 days earlier this stay. Most recent procal wnl. Now off IV abx. no additional antibiotics indicated at this (6) Hypotension: Plan: 2nd to severe sepsis, COVID-19, medications (propofol), etc. Continue levophed as needed, but just after HD then normotensive (7) Elevated troponin: Plan: -Peak trop 0.154. -2nd to myocardial demand ischemia. (8) Elevated d-dimer: Plan: -4890 on admission (10/10/20). -LE dopplers negative for DVT b/l. -Unable to perform CT to r/o PE due to LENNOX. (9) Elevated liver enzymes: Plan: -transaminitis 2nd to COVID-19. -ast/alt normalized (10) Hypokalemia: Plan: Resolved (11) Metabolic acidosis: Plan: 2nd to acute renal failure and severe sepsis. ongoing. defer Rx to ICU team. (12) Fecal occult blood test positive: Plan: -Melanic stools on second day of admission. -Cont PPI for GI prophylaxis. -Hb down to 7 (13) Hyponatremia: Plan: -Mild, ongoing, 2nd LENNOX/ARF. -Daily bmp. (14) Pneumothorax: Plan: Chest tube placed by critical care team likely remove CT tomorrow Plan: -appreciate ICU and palliative care assistance -family meeting with palliative took place on 10/19 -- patient made DNR, no transfer to tertiary care- but otherwise continue [facility] possible chest tube removal and extubation tomorrow Admission and Anticipated Discharge Date Admission Date: October 10, 2020 Subjective patient remains intubated, but ICU hopes to remove chest tube and extubate tomorrow tolerated HD today reviewed chart and labs Review of Systems Review of Systems: Unobtainable due to endotracheal tube Physical Exam Constitutional: + ill appearing, + frail appearing and + mechanically ventilated Neck: trachea midline, no thyromegaly Respiratory: symmetric chest movement (ventilated); no respiratory distress Auscultation: no crackles, no rales and no wheezes Cardiovascular: RRR, no murmur, no edema Gastrointestinal (Abdomen): normal bowel sounds, soft, nontender, no hepatosplenomegaly Skin: no rashes, warm and dry Neurologic: CN's II-XI intact bilaterally; no focal motor deficits and + not awake Results & Data Results & Data ([facility]) Vital Signs (Past 12 Hours) Vital Signs Temp Pulse Pulse Pulse Resp BP BP 10/24/20 20:51 36.8 C 65 111/82 10/24/20 20:42 65 36 H 10/24/20 20:00 36.8 C 71 10/24/20 19:30 36.8 C 55 L 10/24/20 19:00 36.8 C 59 L 10/24/20 18:06 36.6 C 84 10/24/20 17:36 36.7 C 57 L 119/49 L 10/24/20 17:06 36.7 C 69 86/48 L 10/24/20 16:36 36.5 C 76 106/54 L 10/24/20 16:21 36.5 C 69 92/56 L 10/24/20 16:06 36.5 C 57 L 133/52 L 10/24/20 15:06 36.6 C 61 109/62 10/24/20 14:40 62 33 H 10/24/20 14:06 36.5 C 65 116/50 L 10/24/20 13:40 36.7 C 67 65 167/58 H 10/24/20 13:26 36.7 C 67 27 H 167/58 H 10/24/20 13:15 36.7 C 78 26 H 144/56 H 10/24/20 13:06 36.7 C 72 117/73 10/24/20 13:00 36.8 C 78 22 111/46 L 10/24/20 12:48 36.7 C 78 26 H 97/45 L 10/24/20 12:34 36.7 C 81 25 H 124/49 L 10/24/20 12:20 78 97/45 L 10/24/20 12:06 36.7 C 73 105/47 L 10/24/20 12:05 76 105/47 L 10/24/20 11:50 78 103/46 L 10/24/20 11:35 65 103/44 L 10/24/20 11:20 72 102/63 10/24/20 11:06 36.7 C 71 110/51 L 10/24/20 11:05 68 110/51 L 10/24/20 10:50 63 113/63 10/24/20 10:47 59 L 32 H 10/24/20 10:35 70 96/42 L 10/24/20 10:20 72 101/49 L Pulse Ox 10/24/20 20:51 94 10/24/20 20:42 94 10/24/20 20:00 93 10/24/20 19:30 97 10/24/20 19:00 95 10/24/20 18:06 92 10/24/20 17:36 97 10/24/20 17:06 94 10/24/20 16:36 92 10/24/20 16:21 94 10/24/20 16:06 95 10/24/20 15:06 93 10/24/20 14:40 94 10/24/20 14:06 98 10/24/20 13:40 10/24/20 13:26 98 10/24/20 13:15 93 10/24/20 13:06 94 10/24/20 13:00 93 10/24/20 12:48 91 10/24/20 12:34 92 10/24/20 12:20 10/24/20 12:06 89 L 10/24/20 12:05 10/24/20 11:50 10/24/20 11:35 10/24/20 11:20 10/24/20 11:06 90 10/24/20 11:05 10/24/20 10:50 10/24/20 10:47 94 10/24/20 10:35 10/24/20 10:20 Laboratory Results Laboratory Results - last 24 hr 10/23/20 10/23/20 10/24/20 06:19 23:06 04:24 WBC 12.51 H RBC 2.44 L Hgb 7.0 L POC Hgb Hct 21.0 L POC Hct MCV 86.1 MCH 28.7 MCHC 33.3 RDW Std Deviation 50.8 H RDW Coeff of Roxanna 18.1 H Plt Count 153 MPV 11.1 H Immature Gran % (Auto) 1.6 Neut % (Auto) 84.7 Lymph % (Auto) 9.8 [place] % (Auto) 3.4 Eos % (Auto) 0.4 Baso % (Auto) 0.1 Neut # (Auto) 10.60 H Lymph # (Auto) 1.22 [place] # (Auto) 0.43 Eos # (Auto) 0.05 Baso # (Auto) 0.01 Immature Gran # (Auto) 0.20 H Absolute Nucleated RBC 0.06 H Nucleated RBC % (auto) 0.5 Polychromasia 1+ Basophilic Stippling Occasional Schistocytes 1+ Peripher Smr Path Cons PT INR APTT PTT Ratio Fibrinogen Sample Site POC pH POC pCO2 POC pO2 POC HCO3 POC Total CO2 POC Base Excess ABG pH (Temp Correct) ABG pCO2 (Temp Corrct POC ABG pO2 at Pt Temp POC ABG O2 Sat Brandon Test O2 Delivery Device POC O2 Rate POC FiO2 Tidal Volume PEEP POC Sodium Sodium POC Potassium Potassium Chloride Carbon Dioxide Anion Gap BUN Creatinine Est Cr Clr Drug Dosing Est GFR ( Amer) Est GFR (Non-Af Amer) BUN/Creatinine Ratio Glucose POC Glucose 105 H POC Glucose (other) 114 H Calcium Phosphorus Magnesium Total Bilirubin AST ALT Alkaline Phosphatase Troponin I Total Protein Albumin Globulin Albumin/Globulin Ratio Blood Type Antibody Screen Crossmatch 10/24/20 10/24/20 10/24/20 04:24 04:24 04:32 WBC RBC Hgb POC Hgb 6.5 L* Hct POC Hct 19 L* MCV MCH MCHC RDW Std Deviation RDW Coeff of Roxanna Plt Count MPV Immature Gran % (Auto) Neut % (Auto) Lymph % (Auto) [place] % (Auto) Eos % (Auto) Baso % (Auto) Neut # (Auto) Lymph # (Auto) [place] # (Auto) Eos # (Auto) Baso # (Auto) Immature Gran # (Auto) Absolute Nucleated RBC Nucleated RBC % (auto) Polychromasia Basophilic Stippling Schistocytes Peripher Smr Path Cons Cancelled PT INR APTT PTT Ratio Fibrinogen Sample Site Art Line POC pH 7.41 POC pCO2 43 POC pO2 67 L POC HCO3 28 H POC Total CO2 29 POC Base Excess 3.0 H ABG pH (Temp Correct) 7.416 ABG pCO2 (Temp Corrct 43 POC ABG pO2 at Pt Temp 66 POC ABG O2 Sat 93.0 Brandon Test NA O2 Delivery Device Ventilator POC O2 Rate 26 POC FiO2 40 Tidal Volume 300 PEEP 5 POC Sodium 130 L Sodium 130 L POC Potassium 3.6 Potassium 3.6 Chloride 99 Carbon Dioxide 26 Anion Gap 5.0 BUN 49 H D Creatinine 3.82 H D Est Cr Clr Drug Dosing 10.5 Est GFR ( Amer) 12.8 Est GFR (Non-Af Amer) 11.0 BUN/Creatinine Ratio 12.8 Glucose 82 POC Glucose POC Glucose (other) Calcium 7.8 L Phosphorus 5.5 H D Magnesium 2.4 Total Bilirubin 0.3 AST 20 ALT 37 Alkaline Phosphatase 107 Troponin I < 0.015 Total Protein 5.5 L Albumin 1.8 L Globulin 3.7 Albumin/Globulin Ratio 0.5 L Blood Type Antibody Screen Crossmatch 10/24/20 10/24/20 10/24/20 05:37 10:20 10:24 WBC RBC Hgb POC Hgb Hct POC Hct MCV MCH MCHC RDW Std Deviation RDW Coeff of Roxanna Plt Count MPV Immature Gran % (Auto) Neut % (Auto) Lymph % (Auto) [place] % (Auto) Eos % (Auto) Baso % (Auto) Neut # (Auto) Lymph # (Auto) [place] # (Auto) Eos # (Auto) Baso # (Auto) Immature Gran # (Auto) Absolute Nucleated RBC Nucleated RBC % (auto) Polychromasia Basophilic Stippling Schistocytes Peripher Smr Path Cons PT 10.2 INR 1.0 APTT 61.4 H* PTT Ratio 2.3 Fibrinogen 757 H Sample Site POC pH POC pCO2 POC pO2 POC HCO3 POC Total CO2 POC Base Excess ABG pH (Temp Correct) ABG pCO2 (Temp Corrct POC ABG pO2 at Pt Temp POC ABG O2 Sat Brandon Test O2 Delivery Device POC O2 Rate POC FiO2 Tidal Volume PEEP POC Sodium Sodium POC Potassium Potassium Chloride Carbon Dioxide Anion Gap BUN Creatinine Est Cr Clr Drug Dosing Est GFR ( Amer) Est GFR (Non-Af Amer) BUN/Creatinine Ratio Glucose POC Glucose 105 H POC Glucose (other) Calcium Phosphorus Magnesium Total Bilirubin AST ALT Alkaline Phosphatase Troponin I Total Protein Albumin Globulin Albumin/Globulin Ratio Blood Type O Positive Antibody Screen NEGATIVE Crossmatch See Detail 10/24/20 10/24/20 10/24/20 13:20 16:08 17:58 WBC RBC Hgb 10.9 L D POC Hgb Hct 31.9 L POC Hct MCV MCH MCHC RDW Std Deviation RDW Coeff of Roxanna Plt Count MPV Immature Gran % (Auto) Neut % (Auto) Lymph % (Auto) [place] % (Auto) Eos % (Auto) Baso % (Auto) Neut # (Auto) Lymph # (Auto) [place] # (Auto) Eos # (Auto) Baso # (Auto) Immature Gran # (Auto) Absolute Nucleated RBC Nucleated RBC % (auto) Polychromasia Basophilic Stippling Schistocytes Peripher Smr Path Cons PT INR APTT PTT Ratio Fibrinogen Sample Site POC pH POC pCO2 POC pO2 POC HCO3 POC Total CO2 POC Base Excess ABG pH (Temp Correct) ABG pCO2 (Temp Corrct POC ABG pO2 at Pt Temp POC ABG O2 Sat Brandon Test O2 Delivery Device POC O2 Rate POC FiO2 Tidal Volume PEEP POC Sodium Sodium POC Potassium Potassium Chloride Carbon Dioxide Anion Gap BUN Creatinine Est Cr Clr Drug Dosing Est GFR ( Amer) Est GFR (Non-Af Amer) BUN/Creatinine Ratio Glucose POC Glucose POC Glucose (other) 152 H 158 H Calcium Phosphorus Magnesium Total Bilirubin AST ALT Alkaline Phosphatase Troponin I Total Protein Albumin Globulin Albumin/Globulin Ratio Blood Type Antibody Screen Crossmatch Medications Administered Current Inpatient Medications Aspirin (Aspirin 81 Mg Chew) 81 mg NG QDL [facility] Stop: 11/16/20 11:29 Last Admin: 10/24/20 13:37 Dose: 81 mg Documented by: Clonazepam (Clonazepam 0.5 Mg Tab) 0.5 mg PO DAILY [facility] Stop: 11/23/20 08:59 Last Admin: 10/24/20 08:53 Dose: 0.5 mg Documented by: Dextrose (Dextrose 50% 50 Ml Syringe) 25 - 50 ml IV UD PRN; Protocol PRN Reason: Hypoglycemia Protocol Stop: 11/12/20 08:44 Enteral Nutritional Formula (Novasource Renal 2.0 Moustapha 1000ml Bag) 1,000 ml GT CONT [facility]; Protocol Stop: 11/23/20 11:59 Last Admin: 10/24/20 12:59 Dose: 1,000 ml Documented by: Escitalopram Oxalate (Escitalopram Oxalate Oral Soln 20 Mg/20 Ml Udp) 20 mg PO QAM [facility] Stop: 11/16/20 10:59 Last Admin: 10/24/20 08:52 Dose: 20 mg Documented by: Fentanyl Citrate (Fentanyl Bolus From Bag) 50 mcg IV Q60M PRN PRN Reason: Pain or Agitation Stop: 10/30/20 13:36 Last Admin: 10/22/20 20:48 Dose: 50 mcg Documented by: Glucagon (Glucagon For Inj 1 Mg Vial) 1 mg SQ UD PRN; Protocol PRN Reason: Hypoglycemia Protocol Stop: 11/12/20 08:44 Glucose (Glucose 40% Gel 15 Gm Tube) 15 - 30 gm PO UD PRN; Protocol PRN Reason: Hypoglycemia Protocol Stop: 11/12/20 08:44 Glucose (Glucose 10 Tabs/Tube) 4 - 8 tabs PO UD PRN; Protocol PRN Reason: Hypoglycemia Protocol Stop: 11/12/20 08:44 Heparin Sodium (Porcine) (Heparin Sod 5,000 Unit/0.5 Ml Vial) 5,000 units SQ Q8 [facility] Stop: 11/12/20 13:59 Last Admin: 10/24/20 05:45 Dose: 5,000 units Documented by: Hydralazine HCl (Hydralazine Hcl 20 Mg/Ml Vial) 10 mg IV Q6 PRN PRN Reason: SBP>160 Stop: 11/13/20 08:03 Last Admin: 10/16/20 05:15 Dose: 10 mg Documented by: Norepinephrine Bitartrate (Levophed/D5w) 16 mg in 500 mls @ 6.188 mls/hr IV .Q24H [facility]; Protocol Stop: 11/20/20 11:59 Last Titration: 10/24/20 19:03 Dose: 0.05 mcg/kg/min, 6.2 mls/hr Documented by: Dexamethasone 10 mg/ Syringe 2.5 mls @ 1 mls/min IV QAM [facility] Stop: 10/30/20 09:03 Dexamethasone 20 mg/ Dextrose 30 mls @ 60 mls/hr IV QAM [facility] Stop: 10/25/20 09:29 Last Infusion: 10/24/20 09:26 Dose: Infused Documented by: Pantoprazole Sodium 40 mg/ (Syringe) 10 mls @ 5 mls/min IV BID [facility] Stop: 11/23/20 20:59 Last Admin: 10/24/20 19:48 Dose: 5 mls/min Documented by: Insulin Aspart (Insulin Aspart 100 Units/Ml 3 Ml Pen) 0 units SC Q6 [facility] Stop: 11/16/20 00:00 Last Admin: 10/24/20 18:08 Dose: 3 units Documented by: Insulin Glargine (Insulin Glargine Solostar 100 Units/Ml 3 Ml Pen) 0 units SC BID@0600,1800 [facility]; Protocol Stop: 11/16/20 07:44 Last Admin: 10/24/20 18:08 Dose: 3 units Documented by: Midazolam HCl (Midazolam Hcl 1 Mg/Ml 2ml Vial) 2 mg IV Q2H PRN PRN Reason: RASS goal -1 Stop: 11/19/20 08:23 Last Admin: 10/24/20 13:08 Dose: 2 mg Documented by: Miscellaneous (Carbohydrates For Hypoglycemia ) 15 - 30 gm PO UD PRN PRN Reason: Hypoglycemia Treatment Stop: 11/12/20 08:44 Miscellaneous Information (Pharmacy Glycemic Mgmt Consult) 1 ea N/A UD PRN PRN Reason: Consult Stop: 11/12/20 08:49 Oxycodone HCl (Oxycodone Hcl Ir 5 Mg Tab (Immediate Release)) 5 mg NG Q6 [facility] Stop: 11/06/20 11:59 Last Admin: 08/16/21 18:22 Dose: 5 mg Documented by: Sterile Water (Tube Feeding Water Flush) 30 ml GT Q4H [facility] Stop: 11/16/20 12:29 Last Admin: 10/24/20 19:48 Dose: 30 ml Documented by: PG Care Time/CCT Total # of Minutes Spent Total Time Spent with Patient: Total time spent is greater than 50% in coordination of care (as documented) at patient's floor/unit and/or counseling patient: Coding Level of Care Code 32221 Subseq Hosp Care Lvl 2 Diagnoses Acute respiratory failure with hypoxemia J96.01 Severe sepsis A41.9; R65.20 Acute kidney injury N17.9 Pneumonia due to 2019 novel coronavirus U07.1; J12.82 Bacterial pneumonia J15.9 Hypotension I95.9 Elevated troponin R77.8 Elevated d-dimer R79.89 Elevated liver enzymes R74.8 Hypokalemia E87.6 Metabolic acidosis E87.2 Fecal occult blood test positive R19.5 Hyponatremia E87.1 Pneumothorax J93.9
[2020-10-25] MEDS: TUBE FEEDING WATER FLUSH GT SCH ×7 (00:17→23:25)
[2020-10-25] MEDS: oxyCODONE HCL IR 5 MG TAB (IMMEDIATE RELEASE) NG SCH ×6 (00:17→23:25)
[2020-10-25] MEDS: INSULIN ASPART 100 UNITS/ML 3 ML PEN SC SCH ×4 (00:57→17:24)
[2020-10-25 04:38] LABS: iSTAT Arterial Blood Gas HCO3 28 meg/L (19-24); iSTAT Arterial Blood Gas pCO2 45 mmHg (35-46); iSTAT Arterial Blood Gas pH 7.39 (7.35-7.45); iSTAT Arterial Blood Gas pO2 62 mmHg (80-95); iSTAT Carbon Dioxide 29 mmol/L (24-31); iSTAT FiO2 40 %; iSTAT Site Art Line
[2020-10-25] MEDS: INSULIN GLARGINE SOLOSTAR 100 UNITS/ML 3 ML PEN SC SCH ×3 (05:09→17:51)
[2020-10-25 05:18] LABS: Basophils # (auto) 0.01 K/uL (0-0.2); Basophils % (auto) 0.1 %; Eosinophils % (auto) 0.7 %; Hematocrit (blood only) 31.1 % (37-47); Hemoglobin 10.5 g/dL (12.0-16.0); Immature Granulocytes # (auto) 0.21 K/uL (0.00-0.02); Immature Granulocytes % (auto) 1.4 %; Lymphocytes % (auto) 9.4 %; Mean Corpuscular Hemoglobin 28.3 pg (25-34); Mean Corpuscular Hgb Conc 33.8 g/dL (32-36); Mean Corpuscular Volume 83.8 fL (80-100); Mean Platelet Volume 11.1 fL (7.4-10.4); Monocytes # (auto) 0.67 K/uL (0.11-0.59); Monocytes % (auto) 4.5 %; Neutrophils # (auto) 12.43 K/uL (1.4-6.5); Neutrophils % (auto) 83.9 %; Nucleated RBC # (auto) 0.05 K/uL (0-0); Nucleated RBC % (auto) 0.3 %; Platelet Count 203 K/uL (130-400); RDW Coefficient of Variation 18.3 % (11.5-14.5); RDW Standard Deviation 50.9 fL (36.4-46.3); Red Blood Count 3.71 M/uL (4.2-5.4); White Blood Count 14.82 K/uL (4.8-10.8)
[2020-10-25 05:51] LABS: BUN Creatinine Ratio 15.2 (10-20); Calcium 8.3 mg/dl (8.5-10.1); Creatinine Clr Calc Pharmacy 14.7 ml/min; Est GFR (African American) 19.2 ml/min; Est GFR (Non-African American) 16.6 ml/min; Magnesium 2.1 mg/dl (1.8-2.4); Phosphorus 3.2 mg/dl (2.5-4.9)
[2020-10-25] MEDS ORDERED: POTASSIUM CHLORIDE 20 MEQ/15 ML UDC PO STA (06:05)
--- NOTE | 2020-10-25 07:14 | XRay Report ---
XR chest 1V portable HISTORY: 75 years-old Female Ptx acute shortness of breath COMPARISON: Chest radiograph 10/24/2020 TECHNIQUE: Portable AP view of the chest FINDINGS: Endotracheal tube overlies the midline, 2.8 cm superior to the sherie. Right IJ central venous cathet er, enteric tube and right apical chest tube appear in stable positioning. There is persistent subcut aneous emphysema of the left supraclavicular distribution along with pneumomediastinum and pneumoperi cardium. No pneumothorax identified. The bilateral airspace opacities have mildly progressed. The bon es appear grossly intact. IMPRESSION: 1. Lines and tubes as above. No pneumothorax identified. 2. Subcutaneous emphysema with pneumomediastinum redemonstrated. 3. Extensive bilateral airspace opacities have mildly progressed. ACT 112: Negative or not required by law. The above report was generated using voice recognition software. It may contain grammatical, syntax o r spelling errors. Electronically signed by: Tristan Haider M.D. 10/25/2020 7:13 AM
[2020-10-25] MEDS: clonazePAM 0.5 MG TAB PO SCH (08:49)
[2020-10-25] MEDS: dexAMETHasone 20 MG in DEXTROSE 5% 25 ML IV SCH (08:50)
[2020-10-25] MEDS: PANTOprazole 40 MG in SYRINGE 0 ML IV SCH ×2 (08:51→21:00)
--- NOTE | 2020-10-25 09:02 | Nephrology Progress Note ---
Date of Service October 25, 2020 Assessment & Plan (1) Acute kidney injury: Plan: Baseline creatinine <1 mg/dL. LENNOX c/w ATN. No signs of renal recovery; remains anuric. Start HD 10/15. Dialysis catheter functioning well. CXR reviewed. Tolerated UF 3 L yesterday. Orders for HD today entered into EMR: 2 hrs with UF goal 2-3 L as tolerated. 3 K bath for hypokalemia. Orders for HD today reviewed with HD nurse. Levophed provided for BP support. Will evaluate tomorrow AM for possible additional HD. Document I/O's. Repeat metabolic profile tomorrow AM. Medications currently appropriately dosed for kidney dysfunction. (2) Anemia: Plan: 1 u PRBC transfusion support provided yesterday. Heparin held with HD. No signs of active bleeding noted. Repeat tomorrow AM. (3) Pneumonia due to 2019 novel coronavirus: Plan: Received Toclizumab 10/13/20. Completed Dexamethasone therapy. Remdesivir held due to LENNOX, elevated LFT's. Prognosis guarded - COVID pneumonia requiring mechanical ventilation, pressor support, LENNOX requiring HD. Admission and Anticipated Discharge Date Admission Date: October 10, 2020 Subjective I did not personally examine the patient today due to COVID. I discussed the patient with Dr. Knowles and the bedside nurse. Orders for HD today were reviewed with the dialysis nurse. Review of Systems Review of Systems: Unobtainable due to endotracheal tube Physical Exam Physical Exam: Deferred due to COVID. FIO2 40%; VT 350; PEEP 5. Results & Data ([facility]) Vital Signs (Past 12 Hours) Vital Signs Temp Pulse Resp BP Pulse Ox 10/25/20 07:53 69 10/25/20 07:22 72 24 94 10/25/20 07:21 36.7 C 62 118/44 L 94 10/25/20 06:51 36.7 C 64 113/48 L 93 10/25/20 06:21 36.7 C 71 113/46 L 92 10/25/20 05:51 36.9 C 63 110/51 L 93 10/25/20 05:21 36.9 C 74 135/59 L 94 10/25/20 04:51 36.9 C 67 106/47 L 94 10/25/20 04:21 36.9 C 67 101/42 L 93 10/25/20 04:20 72 34 H 91 10/25/20 03:51 36.9 C 67 110/64 93 10/25/20 03:21 36.9 C 65 128/52 L 94 10/25/20 02:51 37.0 C 63 133/57 L 94 10/25/20 02:21 37.0 C 67 139/88 96 10/25/20 01:51 36.9 C 67 141/49 H 96 10/25/20 01:21 36.9 C 70 91/59 L 94 10/25/20 00:51 36.9 C 73 109/60 93 10/25/20 00:21 36.8 C 71 115/76 94 10/25/20 00:00 59 L 10/24/20 23:51 36.8 C 63 164/75 H 96 10/24/20 23:42 73 31 H 96 10/24/20 23:06 36.9 C 57 L 155/57 H 97 10/24/20 22:52 36.9 C 60 146/46 H 96 10/24/20 21:51 36.8 C 64 114/51 L 94 Laboratory Results Laboratory Results - last 24 hr 10/23/20 10/24/20 10/24/20 06:19 04:24 04:24 WBC RBC Hgb Hct MCV MCH MCHC RDW Std Deviation RDW Coeff of Roxanna Plt Count MPV Immature Gran % (Auto) Neut % (Auto) Lymph % (Auto) [place] % (Auto) Eos % (Auto) Baso % (Auto) Neut # (Auto) Lymph # (Auto) [place] # (Auto) Eos # (Auto) Baso # (Auto) Immature Gran # (Auto) Absolute Nucleated RBC Nucleated RBC % (auto) Peripher Smr Path Cons Cancelled PT INR APTT PTT Ratio Fibrinogen Sample Site POC pH POC pCO2 POC pO2 POC HCO3 POC Total CO2 POC Base Excess POC ABG O2 Sat Brandon Test O2 Delivery Device POC O2 Rate POC FiO2 Tidal Volume PEEP Sodium Potassium Chloride Carbon Dioxide Anion Gap BUN Creatinine Est Cr Clr Drug Dosing Est GFR ( Amer) Est GFR (Non-Af Amer) BUN/Creatinine Ratio Glucose POC Glucose (other) 114 H Calcium Phosphorus Magnesium Blood Type Antibody Screen Crossmatch 10/24/20 10/24/20 10/24/20 10:20 10:24 13:20 WBC RBC Hgb Hct MCV MCH MCHC RDW Std Deviation RDW Coeff of Roxanna Plt Count MPV Immature Gran % (Auto) Neut % (Auto) Lymph % (Auto) [place] % (Auto) Eos % (Auto) Baso % (Auto) Neut # (Auto) Lymph # (Auto) [place] # (Auto) Eos # (Auto) Baso # (Auto) Immature Gran # (Auto) Absolute Nucleated RBC Nucleated RBC % (auto) Peripher Smr Path Cons PT 10.2 INR 1.0 APTT 61.4 H* PTT Ratio 2.3 Fibrinogen 757 H Sample Site POC pH POC pCO2 POC pO2 POC HCO3 POC Total CO2 POC Base Excess POC ABG O2 Sat Brandon Test O2 Delivery Device POC O2 Rate POC FiO2 Tidal Volume PEEP Sodium Potassium Chloride Carbon Dioxide Anion Gap BUN Creatinine Est Cr Clr Drug Dosing Est GFR ( Amer) Est GFR (Non-Af Amer) BUN/Creatinine Ratio Glucose POC Glucose (other) 152 H Calcium Phosphorus Magnesium Blood Type O Positive Antibody Screen NEGATIVE Crossmatch See Detail 10/24/20 10/24/20 10/25/20 16:08 17:58 00:25 WBC RBC Hgb 10.9 L D Hct 31.9 L MCV MCH MCHC RDW Std Deviation RDW Coeff of Roxanna Plt Count MPV Immature Gran % (Auto) Neut % (Auto) Lymph % (Auto) [place] % (Auto) Eos % (Auto) Baso % (Auto) Neut # (Auto) Lymph # (Auto) [place] # (Auto) Eos # (Auto) Baso # (Auto) Immature Gran # (Auto) Absolute Nucleated RBC Nucleated RBC % (auto) Peripher Smr Path Cons PT INR APTT PTT Ratio Fibrinogen Sample Site POC pH POC pCO2 POC pO2 POC HCO3 POC Total CO2 POC Base Excess POC ABG O2 Sat Brandon Test O2 Delivery Device POC O2 Rate POC FiO2 Tidal Volume PEEP Sodium Potassium Chloride Carbon Dioxide Anion Gap BUN Creatinine Est Cr Clr Drug Dosing Est GFR ( Amer) Est GFR (Non-Af Amer) BUN/Creatinine Ratio Glucose POC Glucose (other) 158 H 128 H Calcium Phosphorus Magnesium Blood Type Antibody Screen Crossmatch 10/25/20 10/25/20 10/25/20 04:25 04:55 04:55 WBC 14.82 H RBC 3.71 L Hgb 10.5 L Hct 31.1 L MCV 83.8 MCH 28.3 MCHC 33.8 RDW Std Deviation 50.9 H RDW Coeff of Roxanna 18.3 H Plt Count 203 MPV 11.1 H Immature Gran % (Auto) 1.4 Neut % (Auto) 83.9 Lymph % (Auto) 9.4 [place] % (Auto) 4.5 Eos % (Auto) 0.7 Baso % (Auto) 0.1 Neut # (Auto) 12.43 H Lymph # (Auto) 1.40 [place] # (Auto) 0.67 H Eos # (Auto) 0.10 Baso # (Auto) 0.01 Immature Gran # (Auto) 0.21 H Absolute Nucleated RBC 0.05 H Nucleated RBC % (auto) 0.3 Peripher Smr Path Cons PT INR APTT PTT Ratio Fibrinogen Sample Site Art Line POC pH 7.39 POC pCO2 45 POC pO2 62 L POC HCO3 28 H POC Total CO2 29 POC Base Excess 3.0 H POC ABG O2 Sat 91.0 Brandon Test NA O2 Delivery Device Ventilator POC O2 Rate 26 POC FiO2 40 Tidal Volume 350 PEEP 5 Sodium 131 L Potassium 3.0 L D Chloride 99 Carbon Dioxide 26 Anion Gap 6.0 BUN 41 H Creatinine 2.73 H D Est Cr Clr Drug Dosing 14.7 Est GFR ( Amer) 19.2 Est GFR (Non-Af Amer) 16.6 BUN/Creatinine Ratio 15.2 Glucose 139 H POC Glucose (other) Calcium 8.3 L Phosphorus 3.2 D Magnesium 2.1 Blood Type Antibody Screen Crossmatch 10/25/20 05:04 WBC RBC Hgb Hct MCV MCH MCHC RDW Std Deviation RDW Coeff of Roxanna Plt Count MPV Immature Gran % (Auto) Neut % (Auto) Lymph % (Auto) [place] % (Auto) Eos % (Auto) Baso % (Auto) Neut # (Auto) Lymph # (Auto) [place] # (Auto) Eos # (Auto) Baso # (Auto) Immature Gran # (Auto) Absolute Nucleated RBC Nucleated RBC % (auto) Peripher Smr Path Cons PT INR APTT PTT Ratio Fibrinogen Sample Site POC pH POC pCO2 POC pO2 POC HCO3 POC Total CO2 POC Base Excess POC ABG O2 Sat Brandon Test O2 Delivery Device POC O2 Rate POC FiO2 Tidal Volume PEEP Sodium Potassium Chloride Carbon Dioxide Anion Gap BUN Creatinine Est Cr Clr Drug Dosing Est GFR ( Amer) Est GFR (Non-Af Amer) BUN/Creatinine Ratio Glucose POC Glucose (other) 145 H Calcium Phosphorus Magnesium Blood Type Antibody Screen Crossmatch PG Care Time/CCT Total # of Minutes Spent Total Time Spent with Patient: Total time spent is greater than 50% in coordination of care (as documented) at patient's floor/unit and/or counseling patient: Coding Level of Care Code 90830 Subseq Hosp Care Lvl 3 Diagnoses Acute kidney injury N17.9 Anemia D64.9 Pneumonia due to 2019 novel coronavirus U07.1; J12.82
[2020-10-25] MEDS: ESCITALOPRAM OXALATE ORAL SOLN 20 MG/20 ML UDP PO SCH (09:34)
[2020-10-25] MEDS: ASPIRIN 81 MG CHEW NG SCH (09:34)
--- NOTE | 2020-10-25 10:27 | Critical Care Progress Note ---
Date of Service October 25, 2020 Assessment & Plan (1) Pneumonia due to 2019 novel coronavirus: (2) Acute respiratory failure with hypoxemia: (3) Bacterial pneumonia: (4) Acute kidney injury: (5) Metabolic acidosis: Plan: Impression: 75-year-old female admitted with COVID-19 pneumonia. Course has been complicated by acute delirium requiring intubation, initiation of vasopressors for shock, ARDS, as well as acute renal failure requiring initiation of hemodialysis. Recommendations: 1. Neurologic: No significant delirium. Continue clonazepam and oxycodone. 2. Cardiovascular: Continue with mild hypotension on Levophed. 3. Pulmonary: Patient successfully extubated to oxy mask. Will likely remove chest tube tomorrow. No evidence of further pneumothorax on chest x-ray today status post clamping. 4. ID: Completed 5 days of azithromycin and Rocephin. Received Tocilizumab. No signs of infection at present. 5. Renal: Likely ATN - multifactorial. Remains anuric. Renal replacement per nephrology. The patient is significantly improved with removal of volume. Mild hyponatremia, and hypokalemia. Replacement and management per nephrology. X- ray appears that the patient would benefit from additional volume removal if possible. 6. GI: No evidence of active ongoing GI bleeding. Continue PPI. 7. Endocrine: On dexamethasone. Glycemic control per protocol 8. Heme-onc: Status post 1 unit packed RBC 10/24/2020. Hemoglobin improved dramatically likely due to contraction from dialysis as well. Restart heparin 5000 units twice daily. Overall prognosis is guarded. DNR/DNI status. CRITICAL CARE TIME - I have personally spent 30 minutes of critical care time in the direct management of this patient. This is a life/limb threatening event. This includes time spent evaluating patient, direct bedside care, chart review, placing orders, interpretation of diagnostic studies, discussion with consultants, patient, and family members, as well as other required patient management activities. This time is exclusive of all separately billable procedures, and teaching time and separate from and in addition to any other critical care service time. Admission and Anticipated Discharge Date Admission Date: October 10, 2020 Subjective Patient seen and examined. She is following commands. She has been successfully extubated to anoxia mask. She is doing well at this time. No acute events overnight. Review of Systems Review of Systems: All systems reviewed & are unremarkable except as noted in HPI & below Physical Exam Constitutional: No apparent distress. Neck: trachea midline, no thyromegaly Respiratory: no respiratory distress Coarse breath sounds on the ventilator. Cardiovascular: RRR, no murmur, no edema Gastrointestinal (Abdomen): normal bowel sounds, soft, nontender, no hepatosplenomegaly Musculoskeletal: Extremities: extremities normal to inspection Skin: no rashes, warm and dry Lymphatic: no cervical lymphadenopathy Results & Data Results & Data ([facility]) Vital Signs (Past 12 Hours) Vital Signs Temp Pulse Resp BP Pulse Ox 10/25/20 09:51 98.4 F 65 115/48 L 93 10/25/20 09:21 98.2 F 64 101/54 L 93 10/25/20 08:51 98.2 F 65 105/54 L 93 10/25/20 08:21 98.1 F 65 99/57 L 94 10/25/20 07:53 69 10/25/20 07:51 98.1 F 63 95/61 L 96 10/25/20 07:22 72 24 94 10/25/20 07:21 98.1 F 62 118/44 L 94 10/25/20 06:51 98.1 F 64 113/48 L 93 10/25/20 06:21 98.1 F 71 113/46 L 92 10/25/20 05:51 98.4 F 63 110/51 L 93 10/25/20 05:21 98.4 F 74 135/59 L 94 10/25/20 04:51 98.4 F 67 106/47 L 94 10/25/20 04:21 98.4 F 67 101/42 L 93 10/25/20 04:20 72 34 H 91 10/25/20 03:51 98.4 F 67 110/64 93 10/25/20 03:21 98.4 F 65 128/52 L 94 10/25/20 02:51 98.6 F 63 133/57 L 94 10/25/20 02:21 98.6 F 67 139/88 96 10/25/20 01:51 98.4 F 67 141/49 H 96 10/25/20 01:21 98.4 F 70 91/59 L 94 10/25/20 00:51 98.4 F 73 109/60 93 10/25/20 00:21 98.2 F 71 115/76 94 10/25/20 00:00 59 L 10/24/20 23:51 98.2 F 63 164/75 H 96 10/24/20 23:42 73 31 H 96 10/24/20 23:06 98.4 F 57 L 155/57 H 97 10/24/20 22:52 98.4 F 60 146/46 H 96 Vital signs, labs imaging personally reviewed Coding Level of Care Code Critical Care 1st 30-74 mins Diagnoses Pneumonia due to 2019 novel coronavirus U07.1; J12.82 Acute respiratory failure with hypoxemia J96.01 Bacterial pneumonia J15.9 Acute kidney injury N17.9 Metabolic acidosis E87.2 Time Spent (min) 30
--- NOTE | 2020-10-25 12:02 | Pharmacy Report ---
Pharmacy Glycemic Short Note 2 - Date of Service October 25, 2020 - Glycemic Short BSG Results (Last 24 hours): 10/24/20 10/24/20 10/25/20 13:20 17:58 00:25 Glucose POC Glucose (other) 152 H 158 H 128 H 10/25/20 10/25/20 10/25/20 04:55 05:04 11:24 Glucose 139 H POC Glucose (other) 145 H 161 H OUTPATIENT ANTIDIABETIC REGIMEN: * N/a * HbA1c = 6.5% (10/14/20) ASSESSMENT: 10/25 * BSG's well controlled on current regimen * Patient is not requiring very much basal right now (only ~3-6 units/day estimated) or CHO coverage/correction (~5-10 units/day estimated) * Dexamethasone tapering tomorrow. Will adjust basal insulin to hold at higher BSG's as a reduction in basal may be required. Loosening of Novolog parameters may also be required, depending on trend in BSG's 10/23 * Pt has received 7 units of insulin over the past 24hrs * 3 units of basal with Lantus * 4 units of bolus with NovoLog * BSGs [id number] mg/dl * Dexamethasone continues at 20mg IV daily - surprisingly not resulting in steroid induced severe hyperglycemia * Novosource renal continuous tube feedings continue to provide 11g CHO Q6hrs. CHO are being covered with NovoLog as ordered. * BSGs well controlled with current regimen. No changes needed at this time 10/21: * BSGs have been well controlled over last 24 hrs with minimal insulin needs * Only 4 units SQ administered in last 24 hrs and latest BSGs in 120-130s range * Of note, pressor requirements have increased over last 24 hrs, IV steroid dose has also increased and the carb content of TFs have increased due to change to Novasource Renal. * Current insulin orders are producing acceptable results despite new stressors - continue the same for now PLAN FOR INPATIENT GLYCEMIC CONTROL: * Basal insulin - * Lantus 0-3-5 units SC BID, depending on BSG * Bolus insulin * NovoLog per scale ACHS or Q6hrs while NPO * Goal Range: Low 110 mg/dL - High 140 mg/dL * Correction Factor: 25 mg/dL/unit * Nutritional / Prandial insulin per carb ratio of 1 unit per 10 grams CHO consumed PLAN FOR DISCHARGE: * HbA1c was 6.5% from this admission indicating patient has newly diagnosed Type 2 Diabetes. * Could consider dietary and lifestyle changes for now. * Support Patient Self-Management * Healthy Lifestyle (diet, exercise, and smoking cessation) * Disease self-management (SMBG) * Prevention of complications (BP, Lipid goals, Immunizations) * Consider outpatient Diabetes Self-Management Education & Support
[2020-10-25] MEDS: NOREPINEPHRINE/D5W 16 MG/500 ML BAG IV SCH ×2 (13:10→22:33)
[2020-10-25] MEDS: HEPARIN SOD 5,000 UNIT/0.5 ML VIAL SQ SCH ×2 (13:12→21:31)
[2020-10-25] MEDS: NOVASOURCE RENAL 2.0 CAL 1000ML BAG GT SCH (15:12)
--- NOTE | 2020-10-25 22:29 | Hospitalist Progress Note ---
Date of Service October 25, 2020 Assessment & Plan (1) Acute respiratory failure with hypoxemia: Plan: Acute respiratory failure with hypoxemia 2/2 Covid pneumonia complicated by renal failure Covid positive, - On extended Decadron protocol Date of intubation: 10/16/2020 - extubated 10/25/20 to oxy mask, breathing stable Patient completed prior 5-day course of azithromycin/Rocephin for superimposed infection, no additional antibiotics indicated at this time Remdesivir - first dose given on 10/10. Received dose #2 on 10/11. - Due to development of LENNOX and transaminitis the remdesivir was stopped after 2nd dose. -s/p Tocilizumab - 10/13/20. -s/p full 5-day course of rocephin/zithromax. -s/p intubation on 10/16/20 with mechanical ventilation since then (2) Severe sepsis: Plan: -2nd to COVID-19 pneumonia. -no signs of shock at this time, BP stable -Continue supportive care. (3) Acute kidney injury: Plan: -ATN due to COVID-19 (and/or remdesivir) with resulting severe acute renal failure. -Temporary HD catheter placed 10/15. -post HD: 10/17, 10/18, 10/21. tolerated HD on 10/24 Daily BMP -Appreciate nephrology assistance, next HD session at their discretion (4) Pneumonia due to 2019 novel coronavirus: Plan: - Management as noted in AHRF - Remains critically ill. (5) Bacterial pneumonia: Plan: s/p ceftriaxone + azithromycin x 5 days earlier this stay. Most recent procal wnl. Now off IV abx. no additional antibiotics indicated at this (6) Hypotension: Plan: 2nd to severe sepsis, COVID-19, medications (propofol), etc. Continue levophed as needed, but just after HD then normotensive (7) Elevated troponin: Plan: -Peak trop 0.154. -2nd to myocardial demand ischemia. (8) Elevated d-dimer: Plan: -4890 on admission (10/10/20). -LE dopplers negative for DVT b/l. -Unable to perform CT to r/o PE due to LENNOX. (9) Elevated liver enzymes: Plan: -transaminitis 2nd to COVID-19. -ast/alt normalized (10) Hypokalemia: Plan: Resolved (11) Metabolic acidosis: Plan: 2nd to acute renal failure and severe sepsis. ongoing. defer Rx to ICU team. (12) Fecal occult blood test positive: Plan: -Melanic stools on second day of admission. -Cont PPI for GI prophylaxis. - transfused one unit PRBC on 10/24, Hb up to 10 now (13) Hyponatremia: Plan: -Mild, ongoing, 2nd LENNOX/ARF. -Daily bmp. (14) Pneumothorax: Plan: Chest tube placed by critical care team timing of removal per ICU Plan: -appreciate ICU and palliative care assistance -family meeting with palliative took place on 10/19 -- patient made DNR, no transfer to tertiary care- but otherwise continue current care plan (HD, mech ventilation, etc). continue in ICU for close monitoring after extubation Admission and Anticipated Discharge Date Admission Date: October 10, 2020 Subjective extubated today, stable on 10L mask she is still lethargic, no distress discussed with ICU team Review of Systems Review of Systems: Unobtainable due to cognitive status (still lethargic after extubation) Physical Exam Constitutional: + ill appearing and + frail appearing Neck: trachea midline, no thyromegaly Respiratory: no respiratory distress Auscultation: no crackles, no rales and no wheezes Cardiovascular: RRR, no murmur, no edema Gastrointestinal (Abdomen): normal bowel sounds, soft, nontender, no hepatosplenomegaly Skin: no rashes, warm and dry Neurologic: CN's II-XI intact bilaterally; no focal motor deficits and + not awake Results & Data Results & Data ([facility]) Vital Signs (Past 12 Hours) Vital Signs Temp Pulse Pulse BP BP Pulse Ox 10/25/20 17:51 36.9 C 65 125/80 91 10/25/20 17:21 36.9 C 64 141/61 H 89 L 10/25/20 16:51 37.0 C 61 147/55 H 93 10/25/20 16:21 37.1 C 56 L 104/61 97 10/25/20 16:00 60 10/25/20 15:51 37.1 C 54 L 99/50 L 97 10/25/20 15:21 37.1 C 60 119/52 L 96 10/25/20 14:51 37.1 C 58 L 132/59 L 98 10/25/20 14:21 37.1 C 62 126/56 L 97 10/25/20 13:51 37.1 C 61 118/66 97 10/25/20 13:21 37.1 C 64 101/57 L 97 10/25/20 12:51 37.0 C 67 118/52 L 97 10/25/20 12:20 37.0 C 75 138/60 10/25/20 12:15 37.2 C 80 93 10/25/20 12:00 37.2 C 64 87/51 L 91 10/25/20 11:53 37.2 C 78 91 10/25/20 11:40 84 107/50 L 10/25/20 11:21 37.0 C 78 87/67 L 90 10/25/20 11:20 76 86/55 L 10/25/20 11:00 77 127/66 10/25/20 10:40 72 135/58 L Laboratory Results Laboratory Results - last 24 hr 10/25/20 10/25/20 10/25/20 00:25 04:25 04:55 WBC RBC Hgb Hct MCV MCH MCHC RDW Std Deviation RDW Coeff of Roxanna Plt Count MPV Immature Gran % (Auto) Neut % (Auto) Lymph % (Auto) [place] % (Auto) Eos % (Auto) Baso % (Auto) Neut # (Auto) Lymph # (Auto) [place] # (Auto) Eos # (Auto) Baso # (Auto) Immature Gran # (Auto) Absolute Nucleated RBC Nucleated RBC % (auto) Sample Site Art Line POC pH 7.39 POC pCO2 45 POC pO2 62 L POC HCO3 28 H POC Total CO2 29 POC Base Excess 3.0 H POC ABG O2 Sat 91.0 Brandon Test NA O2 Delivery Device Ventilator POC O2 Rate 26 POC FiO2 40 Tidal Volume 350 PEEP 5 Sodium 131 L Potassium 3.0 L D Chloride 99 Carbon Dioxide 26 Anion Gap 6.0 BUN 41 H Creatinine 2.73 H D Est Cr Clr Drug Dosing 14.7 Est GFR ( Amer) 19.2 Est GFR (Non-Af Amer) 16.6 BUN/Creatinine Ratio 15.2 Glucose 139 H POC Glucose (other) 128 H Calcium 8.3 L Phosphorus 3.2 D Magnesium 2.1 10/25/20 10/25/20 10/25/20 04:55 05:04 11:24 WBC 14.82 H RBC 3.71 L Hgb 10.5 L Hct 31.1 L MCV 83.8 MCH 28.3 MCHC 33.8 RDW Std Deviation 50.9 H RDW Coeff of Roxanna 18.3 H Plt Count 203 MPV 11.1 H Immature Gran % (Auto) 1.4 Neut % (Auto) 83.9 Lymph % (Auto) 9.4 [place] % (Auto) 4.5 Eos % (Auto) 0.7 Baso % (Auto) 0.1 Neut # (Auto) 12.43 H Lymph # (Auto) 1.40 [place] # (Auto) 0.67 H Eos # (Auto) 0.10 Baso # (Auto) 0.01 Immature Gran # (Auto) 0.21 H Absolute Nucleated RBC 0.05 H Nucleated RBC % (auto) 0.3 Sample Site POC pH POC pCO2 POC pO2 POC HCO3 POC Total CO2 POC Base Excess POC ABG O2 Sat Brandon Test O2 Delivery Device POC O2 Rate POC FiO2 Tidal Volume PEEP Sodium Potassium Chloride Carbon Dioxide Anion Gap BUN Creatinine Est Cr Clr Drug Dosing Est GFR ( Amer) Est GFR (Non-Af Amer) BUN/Creatinine Ratio Glucose POC Glucose (other) 145 H 161 H Calcium Phosphorus Magnesium 10/25/20 16:43 WBC RBC Hgb Hct MCV MCH MCHC RDW Std Deviation RDW Coeff of Roxanna Plt Count MPV Immature Gran % (Auto) Neut % (Auto) Lymph % (Auto) [place] % (Auto) Eos % (Auto) Baso % (Auto) Neut # (Auto) Lymph # (Auto) [place] # (Auto) Eos # (Auto) Baso # (Auto) Immature Gran # (Auto) Absolute Nucleated RBC Nucleated RBC % (auto) Sample Site POC pH POC pCO2 POC pO2 POC HCO3 POC Total CO2 POC Base Excess POC ABG O2 Sat Brandon Test O2 Delivery Device POC O2 Rate POC FiO2 Tidal Volume PEEP Sodium Potassium Chloride Carbon Dioxide Anion Gap BUN Creatinine Est Cr Clr Drug Dosing Est GFR ( Amer) Est GFR (Non-Af Amer) BUN/Creatinine Ratio Glucose POC Glucose (other) 133 H Calcium Phosphorus Magnesium Medications Administered Current Inpatient Medications Aspirin (Aspirin 81 Mg Chew) 81 mg NG QDL CHELSEY Stop: 11/16/20 11:29 Last Admin: 10/25/20 09:34 Dose: 81 mg Documented by: Clonazepam (Clonazepam 0.5 Mg Tab) 0.5 mg PO DAILY CHELSEY Stop: 11/23/20 08:59 Last Admin: 10/25/20 08:49 Dose: 0.5 mg Documented by: Dextrose (Dextrose 50% 50 Ml Syringe) 25 - 50 ml IV UD PRN; Protocol PRN Reason: Hypoglycemia Protocol Stop: 11/12/20 08:44 Enteral Nutritional Formula (Novasource Renal 2.0 Moustapha 1000ml Bag) 1,000 ml GT CONT CHELSEY; Protocol Stop: 11/23/20 11:59 Last Admin: 10/25/20 15:12 Dose: Not Given Documented by: Escitalopram Oxalate (Escitalopram Oxalate Oral Soln 20 Mg/20 Ml Udp) 20 mg PO QAM [facility] Stop: 11/16/20 10:59 Last Admin: 10/25/20 09:34 Dose: 20 mg Documented by: Glucagon (Glucagon For Inj 1 Mg Vial) 1 mg SQ UD PRN; Protocol PRN Reason: Hypoglycemia Protocol Stop: 11/12/20 08:44 Glucose (Glucose 40% Gel 15 Gm Tube) 15 - 30 gm PO UD PRN; Protocol PRN Reason: Hypoglycemia Protocol Stop: 11/12/20 08:44 Glucose (Glucose 10 Tabs/Tube) 4 - 8 tabs PO UD PRN; Protocol PRN Reason: Hypoglycemia Protocol Stop: 11/12/20 08:44 Heparin Sodium (Porcine) (Heparin Sod 5,000 Unit/0.5 Ml Vial) 5,000 units SQ Q12 CHEL[facility]Y Stop: 11/24/20 11:14 Last Admin: 10/25/20 13:12 Dose: 5,000 units Documented by: Hydralazine HCl (Hydralazine Hcl 20 Mg/Ml Vial) 10 mg IV Q6 PRN PRN Reason: SBP>160 Stop: 11/13/20 08:03 Last Admin: 10/16/20 05:15 Dose: 10 mg Documented by: Norepinephrine Bitartrate (Levophed/D5w) 16 mg in 500 mls @ 8.663 mls/hr IV .Q24H [facility]; Protocol Stop: 11/20/20 11:59 Last Titration: 10/25/20 19:10 Dose: 0.07 mcg/kg/min, 8.7 mls/hr Documented by: Dexamethasone 10 mg/ Syringe 2.5 mls @ 1 mls/min IV QAM [facility] Stop: 10/30/20 09:03 Pantoprazole Sodium 40 mg/ (Syringe) 10 mls @ 5 mls/min IV BID [facility] Stop: 11/23/20 20:59 Last Admin: 10/25/20 08:51 Dose: 5 mls/min Documented by: Insulin Aspart (Insulin Aspart 100 Units/Ml 3 Ml Pen) 0 units SC Q6 [facility] Stop: 11/16/20 00:00 Last Admin: 10/25/20 17:24 Dose: Not Given Documented by: Insulin Glargine (Insulin Glargine Solostar 100 Units/Ml 3 Ml Pen) 0 units SC BID@0600,1800 [facility]; Protocol Stop: 11/25/20 05:59 Midazolam HCl (Midazolam Hcl 1 Mg/Ml 2ml Vial) 2 mg IV Q2H PRN PRN Reason: RASS goal -1 Stop: 11/19/20 08:23 Last Admin: 10/24/20 13:08 Dose: 2 mg Documented by: Miscellaneous (Carbohydrates For Hypoglycemia ) 15 - 30 gm PO UD PRN PRN Reason: Hypoglycemia Treatment Stop: 11/12/20 08:44 Miscellaneous Information (Pharmacy Glycemic Mgmt Consult) 1 ea N/A UD PRN PRN Reason: Consult Stop: 11/12/20 08:49 Oxycodone HCl (Oxycodone Hcl Ir 5 Mg Tab (Immediate Release)) 5 mg NG Q6 [facility] Stop: 11/06/20 11:59 Last Admin: 10/25/20 17:25 Dose: Not Given Documented by: Sterile Water (Tube Feeding Water Flush) 30 ml GT Q4H [facility] Stop: 11/16/20 12:29 Last Admin: 10/25/20 19:30 Dose: Not Given Documented by: PG Care Time/CCT Total # of Minutes Spent Total Time Spent with Patient: Total time spent is greater than 50% in coordination of care (as documented) at patient's floor/unit and/or counseling patient: Coding Level of Care Code 70472 Subseq Hosp Care Lvl 2 Diagnoses Acute respiratory failure with hypoxemia J96.01 Severe sepsis A41.9; R65.20 Acute kidney injury N17.9 Pneumonia due to 2019 novel coronavirus U07.1; J12.82 Bacterial pneumonia J15.9 Hypotension I95.9 Elevated troponin R77.8 Elevated d-dimer R79.89 Elevated liver enzymes R74.8 Hypokalemia E87.6 Metabolic acidosis E87.2 Fecal occult blood test positive R19.5 Hyponatremia E87.1 Pneumothorax J93.9
[2020-10-26] MEDS: INSULIN ASPART 100 UNITS/ML 3 ML PEN SC SCH ×4 (01:12→18:25)
[2020-10-26] MEDS: oxyCODONE HCL IR 5 MG TAB (IMMEDIATE RELEASE) NG SCH (01:13)
[2020-10-26 05:31] LABS: Basophils # (auto) 0.02 K/uL (0-0.2); Basophils % (auto) 0.1 %; Eosinophils # (auto) 0.07 K/uL (0-0.5); Eosinophils % (auto) 0.4 %; Hematocrit (blood only) 32.1 % (37-47); Hemoglobin 10.8 g/dL (12.0-16.0); Immature Granulocytes # (auto) 0.18 K/uL (0.00-0.02); Lymphocytes # (auto) 1.02 K/uL (1.2-3.4); Lymphocytes % (auto) 5.7 %; Mean Corpuscular Hemoglobin 28.6 pg (25-34); Mean Corpuscular Hgb Conc 33.6 g/dL (32-36); Mean Corpuscular Volume 85.1 fL (80-100); Mean Platelet Volume 11.1 fL (7.4-10.4); Monocytes # (auto) 0.99 K/uL (0.11-0.59); Monocytes % (auto) 5.5 %; Neutrophils # (auto) 15.66 K/uL (1.4-6.5); Neutrophils % (auto) 87.3 %; Platelet Count 216 K/uL (130-400); RDW Coefficient of Variation 18.6 % (11.5-14.5); RDW Standard Deviation 54.5 fL (36.4-46.3); Red Blood Count 3.77 M/uL (4.2-5.4); White Blood Count 17.94 K/uL (4.8-10.8)
[2020-10-26] MEDS ORDERED: INSULIN GLARGINE SOLOSTAR 100 UNITS/ML 3 ML PEN SC SCH (06:00)
[2020-10-26 06:11] LABS: BUN Creatinine Ratio 14.7 (10-20); Calcium 8.5 mg/dl (8.5-10.1); Creatinine Clr Calc Pharmacy 10.1 ml/min; Est GFR (African American) 12.7 ml/min; Est GFR (Non-African American) 10.9 ml/min; Magnesium 2.4 mg/dl (1.8-2.4); Phosphorus 5.8 mg/dl (2.5-4.9); Potassium 4.4 mmol/L (3.5-5.1)
[2020-10-26] MEDS: TUBE FEEDING WATER FLUSH GT SCH ×5 (08:09→20:57)
[2020-10-26] MEDS: HEPARIN SOD 5,000 UNIT/0.5 ML VIAL SQ SCH ×2 (08:10→20:57)
[2020-10-26] MEDS: ESCITALOPRAM OXALATE ORAL SOLN 20 MG/20 ML UDP PO SCH (08:11)
[2020-10-26] MEDS: PANTOprazole 40 MG in SYRINGE 0 ML IV SCH ×2 (08:14→20:56)
[2020-10-26] MEDS: dexAMETHasone 10 MG in SYRINGE 0 ML IV SCH (08:14)
[2020-10-26] MEDS: clonazePAM 0.5 MG TAB PO SCH (09:00)
--- NOTE | 2020-10-26 09:36 | Nephrology Progress Note ---
Date of Service October 26, 2020 Assessment & Plan (1) Acute kidney injury: Plan: Baseline creatinine <1 mg/dL. LENNOX c/w ATN. No signs of renal recovery; remains anuric. Start HD 10/15. Dialysis catheter functioning well. CXR reviewed this AM. Tolerated UF 2 L yesterday. Will hold HD today. Plan for next treatment tomorrow. Electrolytes are acceptable. Document I/O's. Repeat metabolic profile tomorrow AM. Medications currently appropriately dosed for kidney dysfunction. (2) Anemia: Plan: 1 u PRBC transfusion support provided 10/24. Heparin held with HD. (3) Pneumonia due to 2019 novel coronavirus: Plan: Received Toclizumab 10/13/20. Completed Dexamethasone therapy. Remdesivir held due to LENNOX, elevated LFT's. Admission and Anticipated Discharge Date Admission Date: October 10, 2020 Subjective Extubated. Chest tube removed. Tolerated HD yesterday without complications. UF 2 L. Remains on low dose levophed gtt. Breathing relatively comfortably. Zenobia was not directly seen this AM due to COVID. I reviewed the case and plan of care with Dr. Knowles and the bedside nurse. Physical Exam Physical Exam: Deferred due to COVID. I/O 1.18/2.0. Anuric. Breathing comfortably with RR 15 on 6 L NC. Results & Data ([facility]) Vital Signs (Past 12 Hours) Vital Signs Temp Pulse Resp BP Pulse Ox 10/26/20 06:21 36.5 C 64 15 107/45 L 93 10/26/20 05:21 36.7 C 64 14 112/53 L 10/26/20 04:51 36.8 C 61 10 L 129/47 L 10/26/20 04:21 36.8 C 64 13 120/52 L 10/26/20 03:51 36.8 C 70 20 122/51 L 10/26/20 03:21 36.9 C 67 15 139/48 L 94 10/26/20 02:51 36.9 C 67 13 128/50 L 94 10/26/20 02:21 36.9 C 64 13 138/64 95 10/26/20 01:51 36.9 C 63 13 147/55 H 94 10/26/20 01:21 36.9 C 68 20 128/89 93 10/26/20 00:51 36.8 C 66 14 137/62 93 10/26/20 00:21 36.8 C 65 14 149/51 H 92 10/26/20 00:00 67 10/25/20 23:51 36.8 C 66 18 135/66 90 10/25/20 22:51 36.9 C 61 13 149/54 H 96 10/25/20 22:21 37.0 C 63 119/54 L 96 10/25/20 21:51 36.9 C 67 117/58 L 93 Laboratory Results Laboratory Results - last 24 hr 10/25/20 10/25/20 10/26/20 11:24 16:43 00:03 WBC RBC Hgb Hct MCV MCH MCHC RDW Std Deviation RDW Coeff of Roxanna Plt Count MPV Immature Gran % (Auto) Neut % (Auto) Lymph % (Auto) [place] % (Auto) Eos % (Auto) Baso % (Auto) Neut # (Auto) Lymph # (Auto) [place] # (Auto) Eos # (Auto) Baso # (Auto) Immature Gran # (Auto) Sodium Potassium Chloride Carbon Dioxide Anion Gap BUN Creatinine Est Cr Clr Drug Dosing Est GFR ( Amer) Est GFR (Non-Af Amer) BUN/Creatinine Ratio Glucose POC Glucose (other) 161 H 133 H 109 H Calcium Phosphorus Magnesium 10/26/20 10/26/20 10/26/20 04:53 04:53 05:01 WBC 17.94 H RBC 3.77 L Hgb 10.8 L Hct 32.1 L MCV 85.1 MCH 28.6 MCHC 33.6 RDW Std Deviation 54.5 H RDW Coeff of Roxanna 18.6 H Plt Count 216 MPV 11.1 H Immature Gran % (Auto) 1.0 Neut % (Auto) 87.3 Lymph % (Auto) 5.7 [place] % (Auto) 5.5 Eos % (Auto) 0.4 Baso % (Auto) 0.1 Neut # (Auto) 15.66 H Lymph # (Auto) 1.02 L [place] # (Auto) 0.99 H Eos # (Auto) 0.07 Baso # (Auto) 0.02 Immature Gran # (Auto) 0.18 H Sodium 133 L Potassium 4.4 D Chloride 102 Carbon Dioxide 22 Anion Gap 9.0 BUN 57 H Creatinine 3.85 H D Est Cr Clr Drug Dosing 10.1 Est GFR ( Amer) 12.7 Est GFR (Non-Af Amer) 10.9 BUN/Creatinine Ratio 14.7 Glucose 90 POC Glucose (other) 97 Calcium 8.5 Phosphorus 5.8 H D Magnesium 2.4 PG Care Time/CCT Total # of Minutes Spent Total Time Spent with Patient: Total time spent is greater than 50% in coordination of care (as documented) at patient's floor/unit and/or counseling patient: Coding Level of Care Code 54501 Subseq Hosp Care Lvl 2 Diagnoses Acute kidney injury N17.9 Anemia D64.9 Pneumonia due to 2019 novel coronavirus U07.1; J12.82
--- NOTE | 2020-10-26 09:56 | XRay Report ---
SINGLE VIEW CHEST CLINICAL HISTORY: Respiratory failure. FINDINGS: An AP, portable, upright chest radiograph is compared to study dated 10/25/2020. A right int ernal jugular central venous catheter is unchanged in position. Endotracheal and enteric tubes have b een removed. A chest tube is again seen at the right apex. The heart is top normal for projection not ing atherosclerotic calcification of the thoracic aorta. Pneumomediastinum is again noted. Airspace c onsolidation is again seen throughout both lungs, greatest at the lung bases. This is similar to prev ious. Trace pleural effusions are suspected. No definite pneumothorax is seen. The skeletal structure s are osteopenic. The bony thorax is grossly intact. Subjacent emphysema is again seen in the lower n lili. IMPRESSION: 1. Endotracheal and enteric tubes have been removed. 2. A right apical chest tube is unchanged in position. No definite pneumothorax is seen. 3. Pneumomediastinum persists. 4. Multifocal airspace consolidation is similar to yesterday. ACT 112: Negative or not required by law. Electronically signed by: Raf Mckeon M.D. 10/26/2020 9:55 AM
[2020-10-26] MEDS ORDERED: oxyCODONE HCL IR 5 MG TAB (IMMEDIATE RELEASE) NG PRN (11:08)
--- NOTE | 2020-10-26 11:08 | Critical Care Progress Note ---
Date of Service October 26, 2020 Assessment & Plan (1) Pneumonia due to 2019 novel coronavirus: (2) Acute respiratory failure with hypoxemia: (3) Bacterial pneumonia: (4) Acute kidney injury: (5) Metabolic acidosis: (6) Pneumothorax: (7) Pneumomediastinum: Plan: Impression: 75-year-old female admitted with COVID-19 pneumonia. Course has been complicated by acute delirium requiring intubation, initiation of vasopressors for shock, ARDS, as well as acute renal failure requiring initiation of hemodialysis. Recommendations: 1. Neurologic: Delirium resolving. We will decrease clonazepam to 0.25 mg daily. Oxycodone changed to 5 mg every 6 hours as needed. 2. Cardiovascular: Hypotension slowly resolving. Weaning off Levophed. 3. Pulmonary: Extubated 10/25/2020. Tolerating supplemental oxygen well. Maintain oxygen saturations 90 to 92%. Chest tube removed at bedside. No evidence of residual pneumothorax. She does have residual pneumomediastinum which will resolve with time. 4. ID: Completed 5 days of azithromycin and Rocephin. Received Tocilizumab. No signs of infection at present. 5. Renal: Likely ATN - multifactorial. Remains anuric. Renal replacement per nephrology. Holding hemodialysis today. Will likely need tunneled catheter. Currently has a right femoral dialysis catheter in place. 6. GI: No evidence of active ongoing GI bleeding. Continue PPI. 7. Endocrine: Completed dexamethasone. Glycemic control per ICU pharmacy. 8. Heme-onc: Status post 1 unit packed RBC 10/24/2020. Hemoglobin improved dramatically likely due to contraction from dialysis as well. Continue heparin 5000 units twice daily. May be stable for transfer to floor once off Levophed. Admission and Anticipated Discharge Date Admission Date: October 10, 2020 Subjective Patient seen and examined this morning. Much more awake and alert. No significant events overnight. Currently on low-dose Levophed. This is being weaned off. Review of Systems Review of Systems: All systems reviewed & are unremarkable except as noted in HPI & below Physical Exam Constitutional: No apparent distress. Frail-appearing Neck: trachea midline, no thyromegaly Respiratory: no respiratory distress Mild crackles bilaterally. Right chest tube in place. Cardiovascular: RRR, no murmur, no edema Gastrointestinal (Abdomen): normal bowel sounds, soft, nontender, no hepatosp lenomegaly Musculoskeletal: Extremities: extremities normal to inspection Skin: no rashes, warm and dry Lymphatic: no cervical lymphadenopathy Results & Data Results & Data ([facility]) Vital Signs (Past 12 Hours) Vital Signs Temp Pulse Resp BP Pulse Ox 10/26/20 06:21 97.7 F 64 15 107/45 L 93 10/26/20 05:21 98.1 F 64 14 112/53 L 10/26/20 04:51 98.2 F 61 10 L 129/47 L 10/26/20 04:21 98.2 F 64 13 120/52 L 10/26/20 03:51 98.2 F 70 20 122/51 L 10/26/20 03:21 98.4 F 67 15 139/48 L 94 10/26/20 02:51 98.4 F 67 13 128/50 L 94 10/26/20 02:21 98.4 F 64 13 138/64 95 10/26/20 01:51 98.4 F 63 13 147/55 H 94 10/26/20 01:21 98.4 F 68 20 128/89 93 10/26/20 00:51 98.2 F 66 14 137/62 93 10/26/20 00:21 98.2 F 65 14 149/51 H 92 10/26/20 00:00 67 10/25/20 23:51 98.2 F 66 18 135/66 90 Vital signs, labs and imaging personally reviewed Coding Level of Care Code 11457 Subseq Hosp Care Lvl 3 Diagnoses Pneumonia due to 2019 novel coronavirus U07.1; J12.82 Acute respiratory failure with hypoxemia J96.01 Bacterial pneumonia J15.9 Acute kidney injury N17.9 Metabolic acidosis E87.2 Pneumothorax J93.9 Pneumomediastinum J98.2
--- NOTE | 2020-10-26 11:12 | Procedure Note ---
Procedure Note Date of Service October 26, 2020 Note Right apical 20 Faroese chest tube removed at bedside. Sutures removed initially. Chest tube was removed upon exhalation. Vaseline and sterile gauze were placed over the incision site. Tape was applied. Patient tolerated procedure well. Coding CPT Codes Pulmonary/Thoracic - Pulmonary and Thoracic: 35336 Remove lung catheter ([id number]) [facility] Procedure Codes (Charges) Pulmonary/Thoracic Procedure 1: Pulmonary and Thoracic: 50814 Remove lung catheter
[2020-10-26] MEDS: NOVASOURCE RENAL 2.0 CAL 1000ML BAG GT SCH (12:17)
[2020-10-26] MEDS: ASPIRIN 81 MG CHEW NG SCH (12:17)
--- NOTE | 2020-10-26 13:43 | Pharmacy Report ---
Pharmacy Glycemic Short Note 2 - Date of Service October 26, 2020 - Glycemic Short BSG Results (Last 24 hours): 10/25/20 10/26/20 10/26/20 16:43 00:03 04:53 Glucose 90 POC Glucose POC Glucose (other) 133 H 109 H 10/26/20 10/26/20 05:01 12:26 Glucose POC Glucose 106 H POC Glucose (other) 97 OUTPATIENT ANTIDIABETIC REGIMEN: * N/a * HbA1c = 6.5% (10/14/20) ASSESSMENT: 10/26 * Extubated 10/25, dexamethasone decreased to 10 mg daily x 5 days * Fasting this AM 97 mg/dL, will hold basal insulin at this time. Patient is still NPO post-intubation, may need to loosen novolog parameters but will keep same for now until BSGs on diet can be assessed. 10/25 * BSG's well controlled on current regimen * Patient is not requiring very much basal right now (only ~3-6 units/day estimated) or CHO coverage/correction (~5-10 units/day estimated) * Dexamethasone tapering tomorrow. Will adjust basal insulin to hold at higher BSG's as a reduction in basal may be required. Loosening of Novolog libia eters may also be required, depending on trend in BSG's 10/23 * Pt has received 7 units of insulin over the past 24hrs * 3 units of basal with Lantus * 4 units of bolus with NovoLog * BSGs [phone] mg/dl * Dexamethasone continues at 20mg IV daily - surprisingly not resulting in steroid induced severe hyperglycemia * Novosource renal continuous tube feedings continue to provide 11g CHO Q6hrs. CHO are being covered with NovoLog as ordered. * BSGs well controlled with current regimen. No changes needed at this time 10/21: * BSGs have been well controlled over last 24 hrs with minimal insulin needs * Only 4 units SQ administered in last 24 hrs and latest BSGs in 120-130s range * Of note, pressor requirements have increased over last 24 hrs, IV steroid dose has also increased and the carb content of TFs have increased due to change to Novasource Renal. * Current insulin orders are producing acceptable results despite new stressors - continue the same for now PLAN FOR INPATIENT GLYCEMIC CONTROL: * Basal insulin - * Lantus hold * Bolus insulin * NovoLog per scale ACHS or Q6hrs while NPO * Goal Range: Low 110 mg/dL - High 140 mg/dL * Correction Factor: 25 mg/dL/unit * Nutritional / Prandial insulin per carb ratio of 1 unit per 10 grams CHO consumed PLAN FOR DISCHARGE: * HbA1c was 6.5% from this admission indicating patient has newly diagnosed Type 2 Diabetes. * Could consider dietary and lifestyle changes for now. * Support Patient Self-Management * Healthy Lifestyle (diet, exercise, and smoking cessation) * Disease self-management (SMBG) * Prevention of complications (BP, Lipid goals, Immunizations) * Consider outpatient Diabetes Self-Management Education & Support
--- NOTE | 2020-10-26 15:08 | XRay Report ---
SINGLE VIEW CHEST CLINICAL HISTORY: Chest tube removal FINDINGS: An AP, portable, upright chest radiograph is compared to study performed earlier the same d ay 10/26/2020. A right internal jugular central venous catheter is unchanged in position. A right-side d chest tube has been removed. The heart is top normal for projection noting atherosclerotic calcific ation of the thoracic aorta. Pneumomediastinum is again noted. Airspace consolidation is again seen t hroughout both lungs, greatest at the lung bases. This is similar to previous. No large pleural effus ion is identified. No definite pneumothorax is seen. The skeletal structures are osteopenic. The bony thorax is grossly intact. Subjacent emphysema is again seen in the lower neck. IMPRESSION: 1. A right-sided chest tube has been removed. No definite pneumothorax is seen. 2. Pneumomediastinum persists. 3. Multifocal airspace consolidation is similar to today's earlier examination. ACT 112: Negative or not required by law. Electronically signed by: Raf Mckeon M.D. 10/26/2020 3:07 PM
[2020-10-26] MEDS: MIDODRINE HCL 2.5 MG TAB PO SCH (16:55)
--- NOTE | 2020-10-26 22:05 | Hospitalist Progress Note ---
Date of Service October 26, 2020 Assessment & Plan (1) Acute respiratory failure with hypoxemia: Plan: Acute respiratory failure with hypoxemia 2/2 Covid pneumonia complicated by renal failure Covid positive, - On extended Decadron protocol Date of intubation: 10/16/2020 - extubated 10/25/20 to oxy mask, breathing stable, saturating 90-92% Patient completed prior 5-day course of azithromycin/Rocephin for superimposed infection, no additional antibiotics indicated at this time Remdesivir - first dose given on 10/10. Received dose #2 on 10/11. - Due to development of LENNOX and transaminitis the remdesivir was stopped after 2nd dose. -s/p Tocilizumab - 10/13/20. -s/p full 5-day course of rocephin/zithromax. (2) Severe sepsis: Plan: -2nd to COVID-19 pneumonia. -weaning off Levophed, might be off by tomorrow -Continue supportive care. (3) Acute kidney injury: Plan: -ATN due to COVID-19 (and/or remdesivir) with resulting severe acute renal failure. -Temporary HD catheter placed 10/15. -post HD: 10/17, 10/18, 10/21. tolerated HD on 10/24 and 10/25, plan for HD tomorrow Daily BMP -Appreciate nephrology assistance (4) Pneumonia due to 2019 novel coronavirus: Plan: - Management as noted in AHRF - Remains critically ill. (5) Bacterial pneumonia: Plan: s/p ceftriaxone + azithromycin x 5 days earlier this stay. Most recent procal wnl. Now off IV abx. no additional antibiotics indicated at this (6) Hypotension: Plan: 2nd to severe sepsis, COVID-19, medications (propofol), etc. Continue levophed as needed, might be off tomorrow but will need HD tomorrow (7) Elevated troponin: Plan: -Peak trop 0.154. -2nd to myocardial demand ischemia. (8) Elevated d-dimer: Plan: -4890 on admission (10/10/20). -LE dopplers negative for DVT b/l. -Unable to perform CT to r/o PE due to LENNOX. (9) Elevated liver enzymes: Plan: -transaminitis 2nd to COVID-19. -ast/alt normalized (10) Hypokalemia: Plan: Resolved (11) Metabolic acidosis: Plan: 2nd to acute renal failure and severe sepsis. ongoing. defer Rx to ICU team. (12) Fecal occult blood test positive: Plan: -Melanic stools on second day of admission. -Cont PPI for GI prophylaxis. - transfused one unit PRBC on 10/24, Hb up to 10 now (13) Hyponatremia: Plan: -Mild, ongoing, 2nd LENNOX/ARF. -Daily bmp. (14) Pneumothorax: Plan: Chest tube placed by critical care team removed 10/26, no residual PTX Plan: -appreciate ICU and palliative care assistance -family meeting with palliative took place on 10/19 -- patient made DNR, no transfer to tertiary care- but otherwise continue current care plan (HD, mech ventilation, etc). continue in ICU for close monitoring after extubation HD tomorrow will be ready for transfer out of ICU once off Levophed Admission and Anticipated Discharge Date Admission Date: October 10, 2020 Subjective tolerated removal of chest tube today, no pneumothorax plan for HD tomorrow, had HD yesterday with 2L UF Hb is up at 10 delirium slowly improving Review of Systems Review of Systems: Unobtainable due to cognitive status Physical Exam Constitutional: + ill appearing, + frail appearing and comfortable; no acute distress Neck: trachea midline, no thyromegaly Respiratory: symmetric chest movement (ventilated); no respiratory distress Auscultation: no crackles, no rales and no wheezes Cardiovascular: RRR, no murmur, no edema Gastrointestinal (Abdomen): normal bowel sounds, soft, nontender, no hepatosplenomegaly Skin: no rashes, warm and dry Neurologic: CN's II-XI intact bilaterally; no focal motor deficits and + not awake Results & Data Results & Data ([facility]) Vital Signs (Past 12 Hours) Vital Signs Temp Pulse Resp BP Pulse Ox 10/26/20 17:21 35.9 C L 53 L 10 L 114/52 L 96 10/26/20 16:51 35.9 C L 53 L 11 L 108/53 L 96 10/26/20 16:21 35.9 C L 54 L 7 L 133/52 L 96 10/26/20 16:00 54 L 133/60 10/26/20 15:51 36.0 C L 54 L 8 L 106/51 L 96 10/26/20 15:21 36.0 C L 56 L 8 L 85/51 L 96 10/26/20 14:52 36.1 C L 60 15 131/52 L 94 10/26/20 14:21 36.2 C L 60 8 L 76/39 L 93 10/26/20 13:51 36.2 C L 62 9 L 83/50 L 94 10/26/20 13:22 36.2 C L 68 10 L 70/41 L 91 10/26/20 12:30 36.2 C L 71 13 82/44 L 93 10/26/20 12:00 36.2 C L 58 L 7 L 114/51 L 94 10/26/20 11:30 36.2 C L 59 L 10 L 93 10/26/20 11:00 36.2 C L 69 18 90 10/26/20 10:30 36.2 C L 61 11 L 94 Laboratory Results Laboratory Results - last 24 hr 10/26/20 10/26/20 10/26/20 00:03 04:53 04:53 WBC 17.94 H RBC 3.77 L Hgb 10.8 L Hct 32.1 L MCV 85.1 MCH 28.6 MCHC 33.6 RDW Std Deviation 54.5 H RDW Coeff of Roxanna 18.6 H Plt Count 216 MPV 11.1 H Immature Gran % (Auto) 1.0 Neut % (Auto) 87.3 Lymph % (Auto) 5.7 [place] % (Auto) 5.5 Eos % (Auto) 0.4 Baso % (Auto) 0.1 Neut # (Auto) 15.66 H Lymph # (Auto) 1.02 L [place] # (Auto) 0.99 H Eos # (Auto) 0.07 Baso # (Auto) 0.02 Immature Gran # (Auto) 0.18 H Sodium 133 L Potassium 4.4 D Chloride 102 Carbon Dioxide 22 Anion Gap 9.0 BUN 57 H Creatinine 3.85 H D Est Cr Clr Drug Dosing 10.1 Est GFR ( Amer) 12.7 Est GFR (Non-Af Amer) 10.9 BUN/Creatinine Ratio 14.7 Glucose 90 POC Glucose POC Glucose (other) 109 H Calcium 8.5 Phosphorus 5.8 H D Magnesium 2.4 10/26/20 10/26/20 10/26/20 05:01 12:26 18:20 WBC RBC Hgb Hct MCV MCH MCHC RDW Std Deviation RDW Coeff of Roxanna Plt Count MPV Immature Gran % (Auto) Neut % (Auto) Lymph % (Auto) [place] % (Auto) Eos % (Auto) Baso % (Auto) Neut # (Auto) Lymph # (Auto) [place] # (Auto) Eos # (Auto) Baso # (Auto) Immature Gran # (Auto) Sodium Potassium Chloride Carbon Dioxide Anion Gap BUN Creatinine Est Cr Clr Drug Dosing Est GFR ( Amer) Est GFR (Non-Af Amer) BUN/Creatinine Ratio Glucose POC Glucose 106 H 124 H POC Glucose (other) 97 Calcium Phosphorus Magnesium Medications Administered Current Inpatient Medications Aspirin (Aspirin 81 Mg Chew) 81 mg NG QDL [facility] Stop: 11/16/20 11:29 Last Admin: 10/26/20 12:17 Dose: Not Given Documented by: Clonazepam (Clonazepam 0.25 Mg Tab) 0.25 mg PO DAILY [facility] Stop: 11/26/20 08:59 Dextrose (Dextrose 50% 50 Ml Syringe) 25 - 50 ml IV UD PRN; Protocol PRN Reason: Hypoglycemia Protocol Stop: 11/12/20 08:44 Enteral Nutritional Formula (Novasource Renal 2.0 Moustapha 1000ml Bag) 1,000 ml GT CONT [facility]; Protocol Stop: 11/23/20 11:59 Last Admin: 10/26/20 12:17 Dose: Not Given Documented by: Escitalopram Oxalate (Escitalopram Oxalate Oral Soln 20 Mg/20 Ml Udp) 20 mg PO QAM [facility] Stop: 11/16/20 10:59 Last Admin: 10/26/20 08:11 Dose: 20 mg Documented by: Glucagon (Glucagon For Inj 1 Mg Vial) 1 mg SQ UD PRN; Protocol PRN Reason: Hypoglycemia Protocol Stop: 11/12/20 08:44 Glucose (Glucose 40% Gel 15 Gm Tube) 15 - 30 gm PO UD PRN; Protocol PRN Reason: Hypoglycemia Protocol Stop: 11/12/20 08:44 Glucose (Glucose 10 Tabs/Tube) 4 - 8 tabs PO UD PRN; Protocol PRN Reason: Hypoglycemia Protocol Stop: 11/12/20 08:44 Heparin Sodium (Porcine) (Heparin Sod 5,000 Unit/0.5 Ml Vial) 5,000 units SQ Q12 [facility] Stop: 11/24/20 11:14 Last Admin: 10/26/20 20:57 Dose: 5,000 units Documented by: Hydralazine HCl (Hydralazine Hcl 20 Mg/Ml Vial) 10 mg IV Q6 PRN PRN Reason: SBP>160 Stop: 11/13/20 08:03 Last Admin: 10/16/20 05:15 Dose: 10 mg Documented by: Norepinephrine Bitartrate (Levophed/D5w) 16 mg in 500 mls @ 8.663 mls/hr IV .Q24H [facility]; Protocol Stop: 11/20/20 11:59 Last Titration: 10/26/20 06:51 Dose: 0.07 mcg/kg/min, 8.7 mls/hr Documented by: Dexamethasone 10 mg/ Syringe 2.5 mls @ 1 mls/min IV QAM [facility] Stop: 10/30/20 09:03 Last Admin: 10/26/20 08:14 Dose: 1 mls/min Documented by: Pantoprazole Sodium 40 mg/ (Syringe) 10 mls @ 5 mls/min IV BID [facility] Stop: 11/23/20 20:59 Last Admin: 10/26/20 20:56 Dose: 5 mls/min Documented by: Insulin Aspart (Insulin Aspart 100 Units/Ml 3 Ml Pen) 0 units SC Q6 [facility] Stop: 11/16/20 00:00 Last Admin: 10/26/20 18:25 Dose: Not Given Documented by: Insulin Glargine (Insulin Glargine Solostar 100 Units/Ml 3 Ml Pen) 0 units SC BID@0600,1800 [facility]; Protocol Stop: 11/25/20 05:59 Last Admin: 10/26/20 05:34 Dose: Not Given Documented by: Midodrine (Midodrine Hcl 2.5 Mg Tab) 5 mg PO TID@0800,1200,1700 [facility] Stop: 11/25/20 16:59 Last Admin: 10/26/20 16:55 Dose: Not Given Documented by: Miscellaneous (Carbohydrates For Hypoglycemia ) 15 - 30 gm PO UD PRN PRN Reason: Hypoglycemia Treatment Stop: 11/12/20 08:44 Miscellaneous Information (Pharmacy Glycemic Mgmt Consult) 1 ea N/A UD PRN PRN Reason: Consult Stop: 11/12/20 08:49 Oxycodone HCl (Oxycodone Hcl Ir 5 Mg Tab (Immediate Release)) 5 mg NG Q6 PRN PRN Reason: pain Stop: 11/06/20 11:59 Sterile Water (Tube Feeding Water Flush) 30 ml GT Q4H [facility] Stop: 11/16/20 12:29 Last Admin: 10/26/20 20:57 Dose: 30 ml Documented by: PG Care Time/CCT Total # of Minutes Spent Total Time Spent with Patient: Total time spent is greater than 50% in coordination of care (as documented) at patient's floor/unit and/or counseling patient: Coding Level of Care Code 31981 Subseq Hosp Care Lvl 2 Diagnoses Acute respiratory failure with hypoxemia J96.01 Severe sepsis A41.9; R65.20 Acute kidney injury N17.9 Pneumonia due to 2019 novel coronavirus U07.1; J12.82 Bacterial pneumonia J15.9 Hypotension I95.9 Elevated troponin R77.8 Elevated d-dimer R79.89 Elevated liver enzymes R74.8 Hypokalemia E87.6 Metabolic acidosis E87.2 Fecal occult blood test positive R19.5 Hyponatremia E87.1 Pneumothorax J93.9
[2020-10-27] MEDS: TUBE FEEDING WATER FLUSH GT SCH ×6 (01:59→20:40)
[2020-10-27] MEDS: INSULIN ASPART 100 UNITS/ML 3 ML PEN SC SCH ×4 (02:00→17:14)
[2020-10-27 05:33] LABS: Basophils # (auto) 0.02 K/uL (0-0.2); Basophils % (auto) 0.1 %; Eosinophils % (auto) 0.6 %; Hematocrit (blood only) 31.3 % (37-47); Hemoglobin 10.3 g/dL (12.0-16.0); Immature Granulocytes # (auto) 0.11 K/uL (0.00-0.02); Immature Granulocytes % (auto) 0.6 %; Lymphocytes # (auto) 0.88 K/uL (1.2-3.4); Lymphocytes % (auto) 5.2 %; Mean Corpuscular Hemoglobin 27.9 pg (25-34); Mean Corpuscular Hgb Conc 32.9 g/dL (32-36); Mean Corpuscular Volume 84.8 fL (80-100); Mean Platelet Volume 10.9 fL (7.4-10.4); Monocytes # (auto) 1.13 K/uL (0.11-0.59); Monocytes % (auto) 6.7 %; Neutrophils # (auto) 14.75 K/uL (1.4-6.5); Neutrophils % (auto) 86.8 %; Platelet Count 204 K/uL (130-400); RDW Coefficient of Variation 18.5 % (11.5-14.5); RDW Standard Deviation 54.5 fL (36.4-46.3); Red Blood Count 3.69 M/uL (4.2-5.4); White Blood Count 16.99 K/uL (4.8-10.8)
[2020-10-27 06:14] LABS: BUN Creatinine Ratio 15.8 (10-20); Calcium 8.2 mg/dl (8.5-10.1); Creatinine Clr Calc Pharmacy 6.8 ml/min; Est GFR (African American) 8.2 ml/min; Est GFR (Non-African American) 7.1 ml/min; Magnesium 2.7 mg/dl (1.8-2.4); Phosphorus 8.9 mg/dl (2.5-4.9); Potassium 5.2 mmol/L (3.5-5.1)
[2020-10-27] MEDS: clonazePAM 0.25 MG TAB PO SCH (08:06)
[2020-10-27] MEDS: MIDODRINE HCL 2.5 MG TAB PO SCH ×3 (08:06→16:26)
[2020-10-27] MEDS: HEPARIN SOD 5,000 UNIT/0.5 ML VIAL SQ SCH ×2 (08:07→20:43)
[2020-10-27] MEDS: ESCITALOPRAM OXALATE ORAL SOLN 20 MG/20 ML UDP PO SCH ×2 (08:07→09:50)
[2020-10-27] MEDS: dexAMETHasone 10 MG in SYRINGE 0 ML IV SCH (08:10)
[2020-10-27] MEDS: PANTOprazole 40 MG in SYRINGE 0 ML IV SCH ×2 (08:10→20:43)
--- NOTE | 2020-10-27 08:37 | XRay Report ---
SINGLE VIEW CHEST CLINICAL HISTORY: Follow-up airspace consolidation. FINDINGS: An AP, portable, upright chest radiograph is compared to studies dated 10/26/2020. A right i nternal jugular central venous catheter is unchanged in position. The heart is top normal for projec tion noting atherosclerotic calcification of the thoracic aorta. Trace pneumomediastinum is again not ed. Airspace consolidation is again seen throughout both lungs, greatest at the lung bases. This is s imilar to yesterday. No large pleural effusion is identified. No definite pneumothorax is seen. The s keletal structures are osteopenic. The bony thorax is grossly intact. Subcutaneous emphysema in the l ower neck has decreased from previous. IMPRESSION: 1. Multifocal airspace consolidation is similar to yesterday. 2. No pneumothorax is clearly identified. ACT 112: Negative or not required by law. Electronically signed by: Raf Mckeon M.D. 10/27/2020 8:35 AM
--- NOTE | 2020-10-27 08:41 | Critical Care Progress Note ---
Date of Service October 27, 2020 Assessment & Plan (1) Pneumonia due to 2019 novel coronavirus: (2) Acute respiratory failure with hypoxemia: (3) Bacterial pneumonia: (4) Acute kidney injury: (5) Metabolic acidosis: (6) Pneumothorax: (7) Pneumomediastinum: Plan: Impression: 75-year-old female admitted with COVID-19 pneumonia. Course has been complicated by acute delirium requiring intubation, initiation of vasopressors for shock, ARDS, as well as acute renal failure requiring initiation of hemodialysis. Recommendations: 1. Neurologic: Delirium resolving. Continue clonazepam to 0.25 mg daily. Oxycodone changed to 5 mg every 6 hours as needed. 2. Cardiovascular: Hypotension slowly resolving. Weaning off Levophed. We will start oral midodrine once evaluated by speech therapy. 3. Pulmonary: Extubated 10/25/2020. Tolerating supplemental oxygen well. Maintain oxygen saturations 90 to 92%. Chest tube removed at bedside. No evidence of residual pneumothorax. She does have residual pneumomediastinum wh ich will resolve with time. 4. ID: Completed 5 days of azithromycin and Rocephin. Received Tocilizumab. No signs of infection at present. 5. Renal: Likely ATN - multifactorial. Remains anuric. Renal replacement per nephrology. Holding hemodialysis today. Will likely need tunneled catheter. Currently has a right femoral dialysis catheter in place. 6. GI: No evidence of active ongoing GI bleeding. Continue PPI. If she fails speech therapy evaluation, will need to consider placing NG tube for tube feeds and oral medications. 7. Endocrine: Completed dexamethasone. Glycemic control per ICU pharmacy. 8. Heme-onc: Status post 1 unit packed RBC 10/24/2020. Hemoglobin improved dramatically likely due to contraction from dialysis as well. Continue heparin 5000 units twice daily. May be stable for transfer to floor once off Levophed. Admission and Anticipated Discharge Date Admission Date: October 10, 2020 Subjective Patient seen and examined today. She remains on low-dose Levophed. No significant events overnight. Continues to be lethargic. Review of Systems Review of Systems: All systems reviewed & are unremarkable except as noted in HPI & below Physical Exam Constitutional: No apparent distress. Frail-appearing Neck: trachea midline, no thyromegaly Respiratory: no respiratory distress Mild crackles bilaterally. Cardiovascular: RRR, no murmur, no edema Gastrointestinal (Abdomen): normal bowel sounds, soft, nontender, no hepatosplenomegaly Musculoskeletal: Extremities: extremities normal to inspection Skin: no rashes, warm and dry Lymphatic: no cervical lymphadenopathy Results & Data Results & Data ([facility]) Vital Signs (Past 12 Hours) Vital Signs Temp Pulse Resp BP Pulse Ox 10/27/20 06:21 96.6 F L 57 L 7 L 93/43 L 97 10/27/20 05:51 96.6 F L 63 14 108/43 L 94 10/27/20 05:21 96.6 F L 62 12 105/61 96 10/27/20 04:51 96.6 F L 62 11 L 138/48 L 95 10/27/20 04:21 96.4 F L 62 11 L 128/56 L 95 10/27/20 04:00 52 L 139/54 L 10/27/20 03:51 96.6 F L 70 22 125/55 L 91 10/27/20 03:22 96.6 F L 62 9 L 110/58 L 93 10/27/20 02:52 96.6 F L 58 L 10 L 126/51 L 95 10/27/20 02:23 96.6 F L 62 11 L 146/54 H 96 10/27/20 01:51 96.6 F L 54 L 7 L 140/49 L 97 10/27/20 01:21 96.6 F L 54 L 8 L 142/54 H 97 10/27/20 00:51 96.8 F L 54 L 8 L 140/50 L 94 10/27/20 00:21 96.8 F L 55 L 7 L 146/52 H 96 10/27/20 00:00 54 L 150/63 H 10/26/20 23:51 96.8 F L 53 L 9 L 148/49 H 97 10/26/20 23:21 96.8 F L 54 L 8 L 147/51 H 97 10/26/20 22:51 96.8 F L 54 L 11 L 148/56 H 97 10/26/20 22:21 96.6 F L 56 L 18 142/47 H 95 10/26/20 21:51 96.6 F L 58 L 12 144/52 H 95 10/26/20 21:21 96.6 F L 61 16 144/55 H 98 10/26/20 20:52 96.6 F L 58 L 15 153/61 H 97 vital signs, labs and imaging personally reviewed. Coding Level of Care Code 83462 Subseq Hosp Care Lvl 3 Diagnoses Pneumonia due to 2019 novel coronavirus U07.1; J12.82 Acute respiratory failure with hypoxemia J96.01 Bacterial pneumonia J15.9 Acute kidney injury N17.9 Metabolic acidosis E87.2 Pneumothorax J93.9 Pneumomediastinum J98.2
--- NOTE | 2020-10-27 09:06 | Nephrology Progress Note ---
Date of Service October 27, 2020 Assessment & Plan (1) Acute kidney injury: Plan: Baseline creatinine <1 mg/dL. LENNOX c/w ATN. No signs of renal recovery; remains anuric. Start HD 10/15. Dialysis catheter functioning well but will need permcath soon (delayed vascular consult given pneumomediastinum). Will discussed with vascular regarding appropriate timing. CXR reviewed this AM. Orders for HD today entered into EMR and reviewed with HD nurse. UF goal 2-2.5 L. Low K bath for hyperkalemia. Document I/O's. Repeat metabolic profile tomorrow AM. Medications currently appropriately dosed for kidney dysfunction. (2) Anemia: Plan: 1 u PRBC transfusion support provided 10/24. (3) Pneumonia due to 2019 novel coronavirus: Plan: Received Toclizumab 10/13/20. Completed Dexamethasone therapy. Remdesivir held due to LENNOX, elevated LFT's. If able TDC delayed pending patient able to come off isolation. Admission and Anticipated Discharge Date Admission Date: October 10, 2020 Subjective No acute events overnight. Remains on levophed gtt. Anuric. Zenobia was not physically seen due to COVID. Review of Systems Review of Systems: All systems reviewed & are unremarkable except as noted in HPI & below Physical Exam Physical Exam: Deferred due to COVID. I/O 1.18/2.0. Anuric. Breathing comfortably with RR 15 on 6 L NC. Results & Data ([facility]) Vital Signs (Past 12 Hours) Vital Signs Temp Pulse Resp BP Pulse Ox 10/27/20 06:21 35.9 C L 57 L 7 L 93/43 L 97 10/27/20 05:51 35.9 C L 63 14 108/43 L 94 10/27/20 05:21 35.9 C L 62 12 105/61 96 10/27/20 04:51 35.9 C L 62 11 L 138/48 L 95 10/27/20 04:21 35.8 C L 62 11 L 128/56 L 95 10/27/20 04:00 52 L 139/54 L 10/27/20 03:51 35.9 C L 70 22 125/55 L 91 10/27/20 03:22 35.9 C L 62 9 L 110/58 L 93 10/27/20 02:52 35.9 C L 58 L 10 L 126/51 L 95 10/27/20 02:23 35.9 C L 62 11 L 146/54 H 96 10/27/20 01:51 35.9 C L 54 L 7 L 140/49 L 97 10/27/20 01:21 35.9 C L 54 L 8 L 142/54 H 97 10/27/20 00:51 36.0 C L 54 L 8 L 140/50 L 94 10/27/20 00:21 36.0 C L 55 L 7 L 146/52 H 96 10/27/20 00:00 54 L 150/63 H 10/26/20 23:51 36.0 C L 53 L 9 L 148/49 H 97 10/26/20 23:21 36.0 C L 54 L 8 L 147/51 H 97 10/26/20 22:51 36.0 C L 54 L 11 L 148/56 H 97 10/26/20 22:21 35.9 C L 56 L 18 142/47 H 95 10/26/20 21:51 35.9 C L 58 L 12 144/52 H 95 10/26/20 21:21 35.9 C L 61 16 144/55 H 98 Laboratory Results Laboratory Results - last 24 hr 10/26/20 10/26/20 10/27/20 12:26 18:20 00:30 WBC RBC Hgb Hct MCV MCH MCHC RDW Std Deviation RDW Coeff of Roxanna Plt Count MPV Immature Gran % (Auto) Neut % (Auto) Lymph % (Auto) [place] % (Auto) Eos % (Auto) Baso % (Auto) Neut # (Auto) Lymph # (Auto) [place] # (Auto) Eos # (Auto) Baso # (Auto) Immature Gran # (Auto) Sodium Potassium Chloride Carbon Dioxide Anion Gap BUN Creatinine Est Cr Clr Drug Dosing Est GFR ( Amer) Est GFR (Non-Af Amer) BUN/Creatinine Ratio Glucose POC Glucose 106 H 124 H POC Glucose (other) 92 Calcium Phosphorus Magnesium 10/27/20 10/27/20 10/27/20 05:02 05:02 08:55 WBC 16.99 H RBC 3.69 L Hgb 10.3 L Hct 31.3 L MCV 84.8 MCH 27.9 MCHC 32.9 RDW Std Deviation 54.5 H RDW Coeff of Roxanna 18.5 H Plt Count 204 MPV 10.9 H Immature Gran % (Auto) 0.6 Neut % (Auto) 86.8 Lymph % (Auto) 5.2 [place] % (Auto) 6.7 Eos % (Auto) 0.6 Baso % (Auto) 0.1 Neut # (Auto) 14.75 H Lymph # (Auto) 0.88 L [place] # (Auto) 1.13 H Eos # (Auto) 0.10 Baso # (Auto) 0.02 Immature Gran # (Auto) 0.11 H Sodium 133 L Potassium 5.2 H D Chloride 101 Carbon Dioxide 21 Anion Gap 11.0 BUN 86 H D Creatinine 5.50 H* D Est Cr Clr Drug Dosing 6.8 Est GFR ( Amer) 8.2 Est GFR (Non-Af Amer) 7.1 BUN/Creatinine Ratio 15.8 Glucose 78 POC Glucose 86 POC Glucose (other) Calcium 8.2 L Phosphorus 8.9 H D Magnesium 2.7 H PG Care Time/CCT Total # of Minutes Spent Total Time Spent with Patient: Total time spent is greater than 50% in coordinat ion of care (as documented) at patient's floor/unit and/or counseling patient: Coding Level of Care Code 64667 Subseq Hosp Care Lvl 3 Diagnoses Acute kidney injury N17.9 Anemia D64.9 Pneumonia due to 2019 novel coronavirus U07.1; J12.82
[2020-10-27] MEDS: ASPIRIN 81 MG CHEW NG SCH (11:06)
--- NOTE | 2020-10-27 11:34 | XRay Report ---
XR chest 1V portable CLINICAL HISTORY: hypoxia COMPARISON STUDY: October 27, 2020 at 6:57 hours FINDINGS: No pneumothorax. No pleural effusion. Stable mixed reticular and airspace opacities throughout bilateral lungs. Few air bronchograms are ag ain seen within the right infrahilar and left retrocardiac region. Cardiomediastinal silhouette is unchanged since recent prior. Aorta is calcified. Pulmonary vasculature is obscured.. Osseous structures: Degenerative changes of bilateral shoulders. Stable position of right-sided IJ venous catheter. IMPRESSION: 1. Stable multifocal pneumonia, unchanged since recent prior. 2. The rest of findings as above. ACT 112: Negative or not required by law. The above report was generated using voice recognition software. It may contain grammatical, syntax o r spelling errors. Electronically signed by: Ainsley Pulido DO 10/27/2020 11:32 AM
[2020-10-27 11:52] LABS: iSTAT Arterial Blood Gas HCO3 22 meg/L (19-24); iSTAT Arterial Blood Gas pCO2 39 mmHg (35-46); iSTAT Arterial Blood Gas pH 7.37 (7.35-7.45); iSTAT Arterial Blood Gas pO2 61 mmHg (80-95); iSTAT Carbon Dioxide 23 mmol/L (24-31); iSTAT Site Art Line
[2020-10-27] MEDS: NOVASOURCE RENAL 2.0 CAL 1000ML BAG GT SCH (13:10)
--- NOTE | 2020-10-27 13:32 | Pharmacy Report ---
Pharmacy Glycemic Sign Off Nt - Date of Service October 27, 2020 - Assessment & Plan ASSESSMENT: * No insulin administered since 10/25 and BSG's all <125 mg/dL * No home meds and A1c 6.5% * Adjusted Novolog to provide correctional only for BSG >140 mg/dL - scheduled to stop 48 hours after last dexamethasone dose * Discussed w Dr. Knowles - pharmacy signing off PLAN FOR INPATIENT GLYCEMIC CONTROL: No changes needed to current regimen. * Continue NovoLog per scale ACHS/Q6hrs while NPO * Goal range = 110 140 mg/dl * CF = 25 mg/dl/unit * Pharmacy is signing off of glycemic consult and will no longer be making a djustments to inpatient regimen. Please feel free to re-consult if needed. Thank you. DISCHARGE RECOMMENDATIONS: * Follow-up with PCP as outpatient for HbA1c indicative of diabetes
[2020-10-27] MEDS ORDERED: OPTIRAY 320 125ml IV ONE ×2 (15:27→15:50)
--- NOTE | 2020-10-27 15:52 | CT Scan Report ---
CT ANGIOGRAM OF THE CHEST CLINICAL HISTORY: Hypoxia. Covid pneumonia. COMPARISON STUDY: Chest x-ray dated 10/27/2020. TECHNIQUE: Following the IV administration of 120 cc of Optiray 320, CT angiogram of the chest was pe rformed from the upper abdomen to the thoracic inlet utilizing the pulmonary embolus protocol. Images are reviewed in the axial, sagittal, and coronal planes. 3-D MIPS images are created and assessed. I V contrast was administered without complication. A dose lowering technique was utilized adhering to the principles of ALARA. The examination is degraded by motion artifact, as well as by streak artifa ct from the arms which could not be related above the chest. CT DOSE: 371.31 mGy.cm FINDINGS: Thyroid: Imaged portions of the thyroid gland are normal in size and attenuation. Thyroid nodules erendira sure up to 1.4 cm. Thoracic aorta: There is minimal atherosclerotic calcification of the thoracic aorta, which is normal in caliber and demonstrates standard 3-vessel arch anatomy. No dissection is seen. Pulmonary vasculature: The pulmonary trunk is normal in caliber. There are no filling defects identif ied in main, lobar, or segmental pulmonary branches to suggest pulmonary embolus. Heart: A right internal jugular central venous catheter is in place. The heart is normal in size and without pericardial effusion. Lungs and pleural spaces: The trachea and central airways are clear. No pneumothorax is seen. Extensi ve groundglass consolidation is seen throughout both lungs. Dense airspace consolidation is seen depe ndently in the lower lobes. There is mild bronchiectasis is seen throughout both lungs, greatest at t he lung bases. Mediastinum: Pneumomediastinum persists. Mildly enlarged mediastinal lymph nodes are likely reactive and measure up to 12 mm in short axis. Sonya: Clear. Axillae: There is no axillary lymphadenopathy. Upper abdomen: Partially visualized upper abdominal viscera is within normal limits. Skeletal structures: The skeletal structures are osteopenic. Degenerative change is noted in the shou lders and thoracic spine. No lytic or blastic bony lesions are seen. Soft tissues: Subcutaneous emphysema is noted in the lower neck. IMPRESSION: 1. Streak and motion compromised examination. 2. There is no evidence of pulmonary embolus in the main, lobar, or segmental pulmonary arteries. 3. Diffuse groundglass consolidation is seen throughout both lungs, with denser/confluent airspace co nsolidation seen dependently and at the lung bases. The appearance is consistent with the reported hi story of a viral pneumonia. A superimposed bacterial pneumonia, ARDS, pulmonary hemorrhage, and/or pu lmonary edema could appear similar. Clinical correlation will be essential. 4. There is mild diffuse bronchiectasis, greatest at the lung bases. Correlate clinically for history of chronic/underlying interstitial lung disease or pulmonary fibrosis. 5. No pleural effusion is identified. 6. Pneumomediastinum persists. No pneumothorax is identified. 7. Additional findings as above. ACT 112: Negative or not required by law. Electronically signed by: Raf Mckeon M.D. 10/27/2020 3:50 PM
[2020-10-27] MEDS: NOREPINEPHRINE/D5W 16 MG/500 ML BAG IV SCH (19:08)
--- NOTE | 2020-10-27 22:36 | Hospitalist Progress Note ---
Date of Service October 27, 2020 Assessment & Plan (1) Acute respiratory failure with hypoxemia: Plan: Acute respiratory failure with hypoxemia 2/2 Covid pneumonia complicated by renal failure Covid positive, - On extended Decadron protocol Date of intubation: 10/16/2020 - extubated 10/25/20, stable on high flow today Patient completed prior 5-day course of azithromycin/Rocephin for superimposed infection, no additional antibiotics indicated at this time Remdesivir - first dose given on 10/10. Received dose #2 on 10/11. - Due to development of LENNOX and transaminitis the remdesivir was stopped after 2nd dose. -s/p Tocilizumab - 10/13/20. -s/p full 5-day course of rocephin/zithromax. (2) Severe sepsis: Plan: -2nd to COVID-19 pneumonia. -weaning off Levophed, might be off by tomorrow, can start Midodrine PO if she passes swallow study -Continue supportive care. (3) Acute kidney injury: Plan: -ATN due to COVID-19 (and/or remdesivir) with resulting severe acute renal failure. -Temporary HD catheter placed 10/15. -post HD: 10/17, 10/18, 10/21. tolerated HD on 10/24 and 10/25 and 10/27 with goal UF 2-2.5L Daily BMP -Appreciate nephrology assistance will need tunneled HD catheter placed as she is not showing signs of recovery has femoral catheter right now (4) Pneumonia due to 2019 novel coronavirus: Plan: - completed treatment (5) Bacterial pneumonia: Plan: s/p ceftriaxone + azithromycin x 5 days earlier this stay. Most recent procal wnl. Now off IV abx. no additional antibiotics indicated at this (6) Hypotension: Plan: 2nd to severe sepsis, COVID-19, medications (propofol), etc. Continue levophed, consider starting Midodrine once able to swallow (7) Elevated troponin: Plan: -Peak trop 0.154. -2nd to myocardial demand ischemia. (8) Elevated d-dimer: Plan: -4890 on admission (10/10/20). -LE dopplers negative for DVT b/l. -Unable to perform CT to r/o PE due to LENNOX. (9) Elevated liver enzymes: Plan: -transaminitis 2nd to COVID-19. -ast/alt normalized (10) Hypokalemia: Plan: Resolved (11) Metabolic acidosis: Plan: 2nd to acute renal failure and severe sepsis. ongoing. defer Rx to ICU team. (12) Fecal occult blood test positive: Plan: -Melanic stools on second day of admission. -Cont PPI for GI prophylaxis. - transfused one unit PRBC on 10/24, Hb up to 10 now (13) Hyponatremia: Plan: -Mild, ongoing, 2nd LENNOX/ARF. -Daily bmp. (14) Pneumothorax: Plan: Chest tube placed by critical care team removed 10/26, no residual PTX Plan: -appreciate ICU and palliative care assistance -family meeting with palliative took place on 10/19 -- patient made DNR, no transfer to tertiary care- but otherwise continue current care plan (HD, mech ventilation, etc). continue in ICU for close monitoring after extubation Admission and Anticipated Discharge Date Admission Date: October 10, 2020 Subjective patient remains lethargic ICU working on delirium appreciate nephrology note, HD ordered, will need tunneled HD catheter soon reviewed labs d/w infection control, remove from negative pressure room today Review of Systems Review of Systems: Unobtainable due to cognitive status (lethargic) Physical Exam Constitutional: + ill appearing, + frail appearing, comfortable and + lethargic; no acute distress Neck: trachea midline, no thyromegaly Respiratory: no respiratory distress and no labored breathing Auscultation: no crackles, no rales and no wheezes Cardiovascular: RRR, no murmur, no edema Gastrointestinal (Abdomen): normal bowel sounds, soft, nontender, no hepatosplenomegaly Skin: no rashes, warm and dry Neurologic: CN's II-XI intact bilaterally; no focal motor deficits and + not awake Results & Data Results & Data ([facility]) Vital Signs (Past 12 Hours) Vital Signs Temp Pulse Pulse Resp BP BP Pulse Ox 10/27/20 20:00 90/53 L 10/27/20 17:43 36.5 C 63 15 104/55 L 95 10/27/20 16:30 36.2 C L 68 23 97 10/27/20 16:00 36.1 C L 79 21 130/52 L 91 10/27/20 15:50 36.0 C L 80 16 94 10/27/20 14:51 36.3 C L 71 20 68/50 L 84 L 10/27/20 14:21 36.4 C L 64 16 125/62 92 10/27/20 13:51 36.4 C L 69 22 124/50 L 92 10/27/20 13:31 36.5 C 65 145/65 H 10/27/20 13:21 36.4 C L 60 8 L 144/60 H 99 10/27/20 12:51 36.3 C L 60 10 L 149/64 H 99 10/27/20 12:25 61 20 95 10/27/20 12:21 36.2 C L 61 18 137/62 98 10/27/20 12:00 66 140/64 10/27/20 11:51 36.2 C L 67 16 119/49 L 97 10/27/20 11:45 66 145/60 H 10/27/20 11:30 68 146/67 H 10/27/20 11:21 36.2 C L 68 16 125/72 88 L 10/27/20 11:15 70 131/67 10/27/20 11:00 63 139/61 10/27/20 10:51 36.2 C L 65 16 85/42 L 86 L 10/27/20 10:45 75 108/78 Laboratory Results Laboratory Results - last 24 hr 10/27/20 10/27/20 10/27/20 00:30 05:02 05:02 WBC 16.99 H RBC 3.69 L Hgb 10.3 L Hct 31.3 L MCV 84.8 MCH 27.9 MCHC 32.9 RDW Std Deviation 54.5 H RDW Coeff of Roxanna 18.5 H Plt Count 204 MPV 10.9 H Immature Gran % (Auto) 0.6 Neut % (Auto) 86.8 Lymph % (Auto) 5.2 [place] % (Auto) 6.7 Eos % (Auto) 0.6 Baso % (Auto) 0.1 Neut # (Auto) 14.75 H Lymph # (Auto) 0.88 L [place] # (Auto) 1.13 H Eos # (Auto) 0.10 Baso # (Auto) 0.02 Immature Gran # (Auto) 0.11 H Sample Site POC pH POC pCO2 POC pO2 POC HCO3 POC Total CO2 POC Base Excess POC ABG O2 Sat Brandon Test O2 Delivery Device Sodium 133 L Potassium 5.2 H D Chloride 101 Carbon Dioxide 21 Anion Gap 11.0 BUN 86 H D Creatinine 5.50 H* D Est Cr Clr Drug Dosing 6.8 Est GFR ( Amer) 8.2 Est GFR (Non-Af Amer) 7.1 BUN/Creatinine Ratio 15.8 Glucose 78 POC Glucose POC Glucose (other) 92 Calcium 8.2 L Phosphorus 8.9 H D Magnesium 2.7 H 10/27/20 10/27/20 10/27/20 06:35 08:55 11:39 WBC RBC Hgb Hct MCV MCH MCHC RDW Std Deviation RDW Coeff of Roxanna Plt Count MPV Immature Gran % (Auto) Neut % (Auto) Lymph % (Auto) [place] % (Auto) Eos % (Auto) Baso % (Auto) Neut # (Auto) Lymph # (Auto) [place] # (Auto) Eos # (Auto) Baso # (Auto) Immature Gran # (Auto) Sample Site Art Line POC pH 7.37 POC pCO2 39 POC pO2 61 L POC HCO3 22 POC Total CO2 23 L POC Base Excess -3.0 POC ABG O2 Sat 90.0 Brandon Test NA O2 Delivery Device Cannula Sodium Potassium Chloride Carbon Dioxide Anion Gap BUN Creatinine Est Cr Clr Drug Dosing Est GFR ( Amer) Est GFR (Non-Af Amer) BUN/Creatinine Ratio Glucose POC Glucose 86 POC Glucose (other) 86 Calcium Phosphorus Magnesium 10/27/20 10/27/20 13:02 16:24 WBC RBC Hgb Hct MCV MCH MCHC RDW Std Deviation RDW Coeff of Roxanna Plt Count MPV Immature Gran % (Auto) Neut % (Auto) Lymph % (Auto) [place] % (Auto) Eos % (Auto) Baso % (Auto) Neut # (Auto) Lymph # (Auto) [place] # (Auto) Eos # (Auto) Baso # (Auto) Immature Gran # (Auto) Sample Site POC pH POC pCO2 POC pO2 POC HCO3 POC Total CO2 POC Base Excess POC ABG O2 Sat Brandon Test O2 Delivery Device Sodium Potassium Chloride Carbon Dioxide Anion Gap BUN Creatinine Est Cr Clr Drug Dosing Est GFR ( Amer) Est GFR (Non-Af Amer) BUN/Creatinine Ratio Glucose POC Glucose 86 129 H POC Glucose (other) Calcium Phosphorus Magnesium Medications Administered Current Inpatient Medications Aspirin (Aspirin 81 Mg Chew) 81 mg NG QDL [facility] Stop: 11/16/20 11:29 Last Admin: 10/27/20 11:06 Dose: Not Given Documented by: Clonazepam (Clonazepam 0.25 Mg Tab) 0.25 mg PO DAILY [facility] Stop: 11/26/20 08:59 Last Admin: 10/27/20 08:06 Dose: Not Given Documented by: Dextrose (Dextrose 50% 50 Ml Syringe) 25 - 50 ml IV UD PRN; Protocol PRN Reason: Hypoglycemia Protocol Stop: 11/12/20 08:44 Enteral Nutritional Formula (Novasource Renal 2.0 Moustapha 1000ml Bag) 1,000 ml GT CONT [facility]; Protocol Stop: 11/23/20 11:59 Last Admin: 10/27/20 13:10 Dose: Not Given Documented by: Escitalopram Oxalate (Escitalopram Oxalate Oral Soln 20 Mg/20 Ml Udp) 20 mg PO QAM [facility] Stop: 11/16/20 10:59 Last Admin: 10/27/20 09:50 Dose: Not Given Documented by: Glucagon (Glucagon For Inj 1 Mg Vial) 1 mg SQ UD PRN; Protocol PRN Reason: Hypoglycemia Protocol Stop: 11/12/20 08:44 Glucose (Glucose 40% Gel 15 Gm Tube) 15 - 30 gm PO UD PRN; Protocol PRN Reason: Hypoglycemia Protocol Stop: 11/12/20 08:44 Glucose (Glucose 10 Tabs/Tube) 4 - 8 tabs PO UD PRN; Protocol PRN Reason: Hypoglycemia Protocol Stop: 11/12/20 08:44 Heparin Sodium (Porcine) (Heparin Sod 5,000 Unit/0.5 Ml Vial) 5,000 units SQ Q12 [facility] Stop: 11/24/20 11:14 Last Admin: 10/27/20 20:43 Dose: 5,000 units Documented by: Hydralazine HCl (Hydralazine Hcl 20 Mg/Ml Vial) 10 mg IV Q6 PRN PRN Reason: SBP>160 Stop: 11/13/20 08:03 Last Admin: 10/16/20 05:15 Dose: 10 mg Documented by: Norepinephrine Bitartrate (Levophed/D5w) 16 mg in 500 mls @ 3.713 mls/hr IV .Q24H [facility]; Protocol Stop: 11/20/20 11:59 Last Admin: 10/27/20 19:08 Dose: Not Given Documented by: Dexamethasone 10 mg/ Syringe 2.5 mls @ 1 mls/min IV QAM [facility] Stop: 10/30/20 09:03 Last Admin: 10/27/20 08:10 Dose: 1 mls/min Documented by: Pantoprazole Sodium 40 mg/ (Syringe) 10 mls @ 5 mls/min IV BID [facility] Stop: 11/23/20 20:59 Last Admin: 10/27/20 20:43 Dose: 5 mls/min Documented by: Insulin Aspart (Insulin Aspart 100 Units/Ml 3 Ml Pen) 0 units SC Q6 [facility] Stop: 10/31/20 23:59 Last Admin: 10/27/20 17:14 Dose: Not Given Documented by: Midodrine (Midodrine Hcl 2.5 Mg Tab) 5 mg PO TID@0800,1200,1700 [facility] Stop: 11/25/20 16:59 Last Admin: 10/27/20 16:26 Dose: Not Given Documented by: Miscellaneous (Carbohydrates For Hypoglycemia ) 15 - 30 gm PO UD PRN PRN Reason: Hypoglycemia Treatment Stop: 11/12/20 08:44 Oxycodone HCl (Oxycodone Hcl Ir 5 Mg Tab (Immediate Release)) 5 mg NG Q6 PRN PRN Reason: pain Stop: 11/06/20 11:59 Sterile Water (Tube Feeding Water Flush) 30 ml GT Q4H [facility] Stop: 11/16/20 12:29 Last Admin: 10/27/20 20:40 Dose: Not Given Documented by: PG Care Time/CCT Total # of Minutes Spent Total Time Spent with Patient: Total time spent is greater than 50% in coordination of care (as documented) at patient's floor/unit and/or counseling patient: Coding Level of Care Code 88670 Subseq Hosp Care Lvl 2 Diagnoses Acute respiratory failure with hypoxemia J96.01 Severe sepsis A41.9; R65.20 Acute kidney injury N17.9 Pneumonia due to 2019 novel coronavirus U07.1; J12.82 Bacterial pneumonia J15.9 Hypotension I95.9 Elevated troponin R77.8 Elevated d-dimer R79.89 Elevated liver enzymes R74.8 Hypokalemia E87.6 Metabolic acidosis E87.2 Fecal occult blood test positive R19.5 Hyponatremia E87.1 Pneumothorax J93.9
[2020-10-28] MEDS: INSULIN ASPART 100 UNITS/ML 3 ML PEN SC SCH ×5 (00:45→23:55)
[2020-10-28] MEDS: TUBE FEEDING WATER FLUSH GT SCH ×3 (02:40→09:50)
[2020-10-28 05:07] LABS: Basophils # (auto) 0.01 K/uL (0-0.2); Basophils % (auto) 0.1 %; Eosinophils # (auto) 0.14 K/uL (0-0.5); Eosinophils % (auto) 0.8 %; Hemoglobin 10.3 g/dL (12.0-16.0); Immature Granulocytes # (auto) 0.08 K/uL (0.00-0.02); Immature Granulocytes % (auto) 0.5 %; Lymphocytes # (auto) 1.36 K/uL (1.2-3.4); Lymphocytes % (auto) 8.1 %; Mean Corpuscular Hemoglobin 28.5 pg (25-34); Mean Corpuscular Hgb Conc 33.2 g/dL (32-36); Mean Corpuscular Volume 85.6 fL (80-100); Mean Platelet Volume 10.4 fL (7.4-10.4); Monocytes # (auto) 0.51 K/uL (0.11-0.59); Neutrophils # (auto) 14.63 K/uL (1.4-6.5); Neutrophils % (auto) 87.5 %; Platelet Count 207 K/uL (130-400); RDW Coefficient of Variation 18.5 % (11.5-14.5); RDW Standard Deviation 55.8 fL (36.4-46.3); Red Blood Count 3.62 M/uL (4.2-5.4); White Blood Count 16.73 K/uL (4.8-10.8)
[2020-10-28 05:32] LABS: Calcium 8.7 mg/dl (8.5-10.1); Creatinine Clr Calc Pharmacy 8.4 ml/min; Est GFR (African American) 10.7 ml/min; Est GFR (Non-African American) 9.2 ml/min; Magnesium 2.6 mg/dl (1.8-2.4)
[2020-10-28 05:48] LABS: Phosphorus 6.6 mg/dl (2.5-4.9)
[2020-10-28] MEDS: HEPARIN SOD 5,000 UNIT/0.5 ML VIAL SQ SCH ×2 (09:07→20:49)
[2020-10-28] MEDS: PANTOprazole 40 MG in SYRINGE 0 ML IV SCH ×2 (09:07→20:49)
[2020-10-28] MEDS: dexAMETHasone 10 MG in SYRINGE 0 ML IV SCH (09:08)
[2020-10-28] MEDS ORDERED: HEPARIN SOD (PORCINE) 1000 UNIT/ML IV ONE (09:14)
[2020-10-28] MEDS ORDERED: SODIUM CHLORIDE 0.9% 1000ML 1,000 ML IV PRN (09:14)
--- NOTE | 2020-10-28 09:14 | Hospitalist Progress Note ---
Date of Service October 28, 2020 Assessment & Plan (1) Acute respiratory failure with hypoxemia: Plan: Acute respiratory failure with hypoxemia 2/2 Covid pneumonia complicated by renal failure Covid positive, - On extended Decadron protocol, currently on 10mg dose Date of intubation: 10/16/2020 - extubated 10/25/20, stable on high flow today Patient completed prior 5-day course of azithromycin/Rocephin for superimposed infection, no additional antibiotics indicated at this time Remdesivir - first dose given on 10/10. Received dose #2 on 10/11. - Due to development of LENNOX and transaminitis the remdesivir was stopped after 2nd dose. -s/p Tocilizumab - 10/13/20. -s/p full 5-day course of rocephin/zithromax. (2) Severe sepsis: Plan: -2nd to COVID-19 pneumonia. -weaning off Levophed, transitioning to Midodrine PO -Continue supportive care. (3) Acute kidney injury: Plan: -ATN due to COVID-19 (and/or remdesivir) with resulting severe acute renal failure. -Temporary HD catheter placed 10/15. -post HD: 10/17, 10/18, 10/21. tolerated HD on 10/24 and 10/25 and 10/27 and brief session on 10/28 Daily BMP -Appreciate nephrology assistance will need tunneled HD catheter placed as she is not showing signs of recovery has femoral catheter right now (4) Pneumonia due to 2019 novel coronavirus: Plan: - completed treatment (5) Bacterial pneumonia: Plan: s/p ceftriaxone + azithromycin x 5 days earlier this stay. (6) Hypotension: Plan: 2nd to severe sepsis, COVID-19, medications (propofol), etc. Continue levophed, starting Midodrine (7) Elevated troponin: Plan: -Peak trop 0.154. -2nd to myocardial demand ischemia. (8) Elevated d-dimer: Plan: -4890 on admission (10/10/20). -LE dopplers negative for DVT b/l. -Unable to perform CT to r/o PE due to LENNOX. (9) Elevated liver enzymes: Plan: -transaminitis 2nd to COVID-19. -ast/alt normalized (10) Hypokalemia: Plan: Resolved (11) Metabolic acidosis: Plan: 2nd to acute renal failure and severe sepsis. ongoing. defer Rx to ICU team. (12) Fecal occult blood test positive: Plan: -Melanic stools on second day of admission. -Cont PPI for GI prophylaxis. - transfused one unit PRBC on 10/24, Hb up to 10 now (13) Hyponatremia: Plan: -Mild, ongoing, 2nd LENNOX/ARF. -Daily bmp. (14) Pneumothorax: Plan: Chest tube placed by critical care team removed 10/26, no residual PTX Plan: -appreciate ICU and palliative care assistance -family meeting with palliative took place on 10/19 -- patient made DNR, no transfer to tertiary care- but otherwise continue current care plan (HD, mech ventilation, etc). continue in ICU for close monitoring, can downgrade once off Levophed Admission and Anticipated Discharge Date Admission Date: October 10, 2020 Subjective patient very frail, laying in bed, difficulty speaking, hoarse denies chest pain, dyspnea, abdominal pain, nausea she has a rectal tube for diarrhea d/w Dr. Alston, plan for brief HD session today, planning on getting tunneled HD catheter Review of Systems Review of Systems: All systems reviewed & are unremarkable except as noted in Subjective Constitutional: + fatigue and + weakness; no fever Respiratory: no cough and no dyspnea Cardiovascular: no chest pain Gastrointestinal: + diarrhea/loose stools; no abdominal pain, no nausea, no vomiting and no constipation Physical Exam Constitutional: well developed, + frail appearing and comfortable; no acute distress Neck: trachea midline, no thyromegaly Respiratory: no respiratory distress and no labored breathing Auscultation: no crackles, no rales and no wheezes Cardiovascular: RRR, no murmur, no edema Gastrointestinal (Abdomen): normal bowel sounds, soft, nontender, no hepatosplenomegaly Skin: no rashes, warm and dry Neurologic: normal touch/pain/proprioception, CN's II-XI intact bilaterally, moves all extremities and awake; no focal motor deficits Psychiatric: Orientation: alert, oriented x 3 and cooperative Results & Data Results & Data ([facility]) Vital Signs (Past 12 Hours) Vital Signs Temp Pulse Resp BP Pulse Ox 10/28/20 07:27 76 10/28/20 05:43 36.5 C 67 16 115/53 L 95 10/28/20 04:43 36.5 C 75 15 123/48 L 90 10/28/20 04:00 110/48 L 10/28/20 03:43 36.6 C 71 15 128/48 L 93 10/28/20 02:43 36.6 C 73 14 120/54 L 92 10/28/20 01:43 36.6 C 65 18 111/67 95 10/28/20 00:43 36.6 C 68 15 137/54 L 94 10/28/20 00:00 125/50 L 10/27/20 23:43 36.6 C 61 8 L 136/52 L 94 10/27/20 22:43 36.5 C 63 13 121/57 L 97 10/27/20 21:44 36.5 C 62 13 134/69 97 Laboratory Results Laboratory Results - last 24 hr 10/27/20 10/27/20 10/27/20 06:35 11:39 13:02 WBC RBC Hgb Hct MCV MCH MCHC RDW Std Deviation RDW Coeff of Roxanna Plt Count MPV Immature Gran % (Auto) Neut % (Auto) Lymph % (Auto) [place] % (Auto) Eos % (Auto) Baso % (Auto) Neut # (Auto) Lymph # (Auto) [place] # (Auto) Eos # (Auto) Baso # (Auto) Immature Gran # (Auto) Sample Site Art Line POC pH 7.37 POC pCO2 39 POC pO2 61 L POC HCO3 22 POC Total CO2 23 L POC Base Excess -3.0 POC ABG O2 Sat 90.0 Brandon Test NA O2 Delivery Device Cannula Sodium Potassium Chloride Carbon Dioxide Anion Gap BUN Creatinine Est Cr Clr Drug Dosing Est GFR ( Amer) Est GFR (Non-Af Amer) BUN/Creatinine Ratio Glucose POC Glucose 86 POC Glucose (other) 86 Calcium Phosphorus Magnesium 10/27/20 10/28/20 10/28/20 16:24 00:43 04:34 WBC 16.73 H RBC 3.62 L Hgb 10.3 L Hct 31.0 L MCV 85.6 MCH 28.5 MCHC 33.2 RDW Std Deviation 55.8 H RDW Coeff of Roxanna 18.5 H Plt Count 207 MPV 10.4 Immature Gran % (Auto) 0.5 Neut % (Auto) 87.5 Lymph % (Auto) 8.1 [place] % (Auto) 3.0 Eos % (Auto) 0.8 Baso % (Auto) 0.1 Neut # (Auto) 14.63 H Lymph # (Auto) 1.36 [place] # (Auto) 0.51 Eos # (Auto) 0.14 Baso # (Auto) 0.01 Immature Gran # (Auto) 0.08 H Sample Site POC pH POC pCO2 POC pO2 POC HCO3 POC Total CO2 POC Base Excess POC ABG O2 Sat Brandon Test O2 Delivery Device Sodium Potassium Chloride Carbon Dioxide Anion Gap BUN Creatinine Est Cr Clr Drug Dosing Est GFR ( Amer) Est GFR (Non-Af Amer) BUN/Creatinine Ratio Glucose POC Glucose 129 H 79 POC Glucose (other) Calcium Phosphorus Magnesium 10/28/20 04:34 WBC RBC Hgb Hct MCV MCH MCHC RDW Std Deviation RDW Coeff of Roxanna Plt Count MPV Immature Gran % (Auto) Neut % (Auto) Lymph % (Auto) [place] % (Auto) Eos % (Auto) Baso % (Auto) Neut # (Auto) Lymph # (Auto) [place] # (Auto) Eos # (Auto) Baso # (Auto) Immature Gran # (Auto) Sample Site POC pH POC pCO2 POC pO2 POC HCO3 POC Total CO2 POC Base Excess POC ABG O2 Sat Brandon Test O2 Delivery Device Sodium 132 L Potassium 5.0 Chloride 101 Carbon Dioxide 21 Anion Gap 10.0 BUN 62 H Creatinine 4.43 H D Est Cr Clr Drug Dosing 8.4 Est GFR ( Amer) 10.7 Est GFR (Non-Af Amer) 9.2 BUN/Creatinine Ratio 14.0 Glucose 72 POC Glucose POC Glucose (other) Calcium 8.7 Phosphorus 6.6 H D Magnesium 2.6 H Medications Administered Current Inpatient Medications Aspirin (Aspirin 81 Mg Chew) 81 mg NG QDL [facility] Stop: 11/16/20 11:29 Last Admin: 10/27/20 11:06 Dose: Not Given Documented by: Clonazepam (Clonazepam 0.25 Mg Tab) 0.25 mg PO DAILY [facility] Stop: 11/26/20 08:59 Last Admin: 10/27/20 08:06 Dose: Not Given Documented by: Dextrose (Dextrose 50% 50 Ml Syringe) 25 - 50 ml IV UD PRN; Protocol PRN Reason: Hypoglycemia Protocol Stop: 11/12/20 08:44 Enteral Nutritional Formula (Novasource Renal 2.0 Moustapha 1000ml Bag) 1,000 ml GT CONT [facility]; Protocol Stop: 11/23/20 11:59 Last Admin: 10/27/20 13:10 Dose: Not Given Documented by: Escitalopram Oxalate (Escitalopram Oxalate Oral Soln 20 Mg/20 Ml Udp) 20 mg PO QAM [facility] Stop: 11/16/20 10:59 Last Admin: 10/27/20 09:50 Dose: Not Given Documented by: Glucagon (Glucagon For Inj 1 Mg Vial) 1 mg SQ UD PRN; Protocol PRN Reason: Hypoglycemia Protocol Stop: 11/12/20 08:44 Glucose (Glucose 40% Gel 15 Gm Tube) 15 - 30 gm PO UD PRN; Protocol PRN Reason: Hypoglycemia Protocol Stop: 11/12/20 08:44 Glucose (Glucose 10 Tabs/Tube) 4 - 8 tabs PO UD PRN; Protocol PRN Reason: Hypoglycemia Protocol Stop: 11/12/20 08:44 Heparin Sodium (Porcine) (Heparin Sod 5,000 Unit/0.5 Ml Vial) 5,000 units SQ Q12 [facility] Stop: 11/24/20 11:14 Last Admin: 10/28/20 09:07 Dose: 5,000 units Documented by: Hydralazine HCl (Hydralazine Hcl 20 Mg/Ml Vial) 10 mg IV Q6 PRN PRN Reason: SBP>160 Stop: 11/13/20 08:03 Last Admin: 10/16/20 05:15 Dose: 10 mg Documented by: Norepinephrine Bitartrate (Levophed/D5w) 16 mg in 500 mls @ 3.713 mls/hr IV .Q24H [facility]; Protocol Stop: 11/20/20 11:59 Last Titration: 10/28/20 07:12 Dose: 0.03 mcg/kg/min, 3.7 mls/hr Documented by: Dexamethasone 10 mg/ Syringe 2.5 mls @ 1 mls/min IV QAM [facility] Stop: 10/30/20 09:03 Last Admin: 10/28/20 09:08 Dose: 1 mls/min Documented by: Pantoprazole Sodium 40 mg/ (Syringe) 10 mls @ 5 mls/min IV BID [facility] Stop: 11/23/20 20:59 Last Admin: 10/28/20 09:07 Dose: 5 mls/min Documented by: Insulin Aspart (Insulin Aspart 100 Units/Ml 3 Ml Pen) 0 units SC Q6 [facility] Stop: 10/31/20 23:59 Last Admin: 10/28/20 06:01 Dose: Not Given Documented by: Midodrine (Midodrine Hcl 2.5 Mg Tab) 5 mg PO TID@0800,1200,1700 [facility] Stop: 11/25/20 16:59 Last Admin: 10/27/20 16:26 Dose: Not Given Documented by: Miscellaneous (Carbohydrates For Hypoglycemia ) 15 - 30 gm PO UD PRN PRN Reason: Hypoglycemia Treatment Stop: 11/12/20 08:44 Oxycodone HCl (Oxycodone Hcl Ir 5 Mg Tab (Immediate Release)) 5 mg NG Q6 PRN PRN Reason: pain Stop: 11/06/20 11:59 Sterile Water (Tube Feeding Water Flush) 30 ml GT Q4H [facility] Stop: 11/16/20 12:29 Last Admin: 10/28/20 06:00 Dose: Not Given Documented by: PG Care Time/CCT Total # of Minutes Spent Total Time Spent with Patient: Total time spent is greater than 50% in coordination of care (as documented) at patient's floor/unit and/or counseling patient: Coding Level of Care Code 59724 Subseq Hosp Care Lvl 2 Diagnoses Acute respiratory failure with hypoxemia J96.01 Severe sepsis A41.9; R65.20 Acute kidney injury N17.9 Pneumonia due to 2019 novel coronavirus U07.1; J12.82 Bacterial pneumonia J15.9 Hypotension I95.9 Elevated troponin R77.8 Elevated d-dimer R79.89 Elevated liver enzymes R74.8 Hypokalemia E87.6 Metabolic acidosis E87.2 Fecal occult blood test positive R19.5 Hyponatremia E87.1 Pneumothorax J93.9
--- NOTE | 2020-10-28 09:19 | Critical Care Progress Note ---
Date of Service October 28, 2020 Assessment & Plan (1) Pneumonia due to 2019 novel coronavirus: (2) Acute respiratory failure with hypoxemia: (3) Bacterial pneumonia: (4) Acute kidney injury: (5) Metabolic acidosis: (6) Pneumothorax: (7) Pneumomediastinum: Plan: Impression: 75-year-old female admitted with COVID-19 pneumonia. Course has been complicated by acute delirium requiring intubation, initiation of vasopressors for shock, ARDS, as well as acute renal failure requiring initiation of hemodialysis. Recommendations: 1. Neurologic: Delirium resolving. Continue clonazepam to 0.25 mg daily. Oxycodone changed to 5 mg every 6 hours as needed. 2. Cardiovascular: Hypotension slowly resolving. We will start midodrine as feeding tube is in place. 3. Pulmonary: Extubated 10/25/2020. Tolerating supplemental oxygen well. Maintain oxygen saturations 90 to 92%. Chest tube removed at bedside. No evidence of residual pneumothorax. She does have residual pneumomediastinum which will resolve with time. CT chest with contrast from 10/27/2020 without evidence of pulmonary embolism. She has diffuse groundglass opacities and likely developed post fibrotic ARDS/viral pneumonia. Completing a course of DEXA ARDS steroid dosing. 4. ID: Completed 5 days of azithromycin and Rocephin. Received Tocilizumab. No signs of infection at present. 5. Renal: Likely ATN - multifactorial. Remains anuric. Renal replacement per nephrology. To undergo dialysis today. Will need tunneled catheter likely early next week. 6. GI: Small bore feeding tube placed at bedside. 7. Endocrine: Glycemic control per ICU pharmacy. 8. Heme-onc: Status post 1 unit packed RBC 10/24/2020. Hemoglobin improved dramatically likely due to contraction from dialysis as well. Continue heparin 5000 units twice daily. May be stable for transfer to floor once off Levophed. Admission and Anticipated Discharge Date Admission Date: October 10, 2020 Subjective Patient seen and examined this morning. She is awake and alert. She remains on low-dose Levophed. Coresafe feeding tube was placed at bedside. No acute events overnight. Underwent a CT chest with contrast yesterday to evaluate for pulmonary embolism. Review of Systems Review of Systems: All systems reviewed & are unremarkable except as noted in HPI & below Physical Exam Constitutional: No apparent distress. Frail-appearing Neck: trachea midline, no thyromegaly Respiratory: no respiratory distress Mild crackles bilaterally. Cardiovascular: RRR, no murmur, no edema Gastrointestinal (Abdomen): normal bowel sounds, soft, nontender, no hepatosplenomegaly Musculoskeletal: Extremities: extremities normal to inspection Skin: no rashes, warm and dry Lymphatic: no cervical lymphadenopathy Results & Data Results & Data ([facility]) Vital Signs (Past 12 Hours) Vital Signs Temp Pulse Resp BP Pulse Ox 10/28/20 07:27 76 10/28/20 05:43 97.7 F 67 16 115/53 L 95 10/28/20 04:43 97.7 F 75 15 123/48 L 90 10/28/20 04:00 110/48 L 10/28/20 03:43 97.9 F 71 15 128/48 L 93 10/28/20 02:43 97.9 F 73 14 120/54 L 92 10/28/20 01:43 97.9 F 65 18 111/67 95 10/28/20 00:43 97.9 F 68 15 137/54 L 94 10/28/20 00:00 125/50 L 10/27/20 23:43 97.9 F 61 8 L 136/52 L 94 10/27/20 22:43 97.7 F 63 13 121/57 L 97 10/27/20 21:44 97.7 F 62 13 134/69 97 vital signs, labs and imaging personally reviewed. CT chest imaging with evidence of diffuse groundglass opacities with dense consolidations in left and right lower lobe. Coding Level of Care Code 14289 Subseq Hosp Care Lvl 3 Diagnoses Pneumonia due to 2019 novel coronavirus U07.1; J12.82 Acute respiratory failure with hypoxemia J96.01 Bacterial pneumonia J15.9 Acute kidney injury N17.9 Metabolic acidosis E87.2 Pneumothorax J93.9 Pneumomediastinum J98.2
--- NOTE | 2020-10-28 09:20 | Nephrology Progress Note ---
Date of Service October 28, 2020 Assessment & Plan (1) Acute kidney injury: Plan: Baseline creatinine <1 mg/dL. LENNOX c/w ATN. No signs of renal recovery; remains anuric. Start HD 10/15. Dialysis catheter functioning well but will need permcath soon. I discussed TDC placement with Dr. Mcnair yesterday, patient is now off COVID isolation. Dr. Mcnair can place TDC placement early next week. CXR and CTA reviewed this AM. Plan of care discussed with Dr. Knowles. Orders for HD today entered into EMR and reviewed with HD nurse. UF goal 1 L. Low K bath for hyperkalemia. Document I/O's. Repeat metabolic profile tomorrow AM. Medications currently appropriately dosed for kidney dysfunction. (2) Anemia: Plan: 1 u PRBC transfusion support provided 10/24. (3) Pneumonia due to 2019 novel coronavirus: Plan: Received Toclizumab 10/13/20. Completed Dexamethasone therapy. Remdesivir held due to LENNOX, elevated LFT's. Admission and Anticipated Discharge Date Admission Date: October 10, 2020 Subjective Remains on Levophed for BP support. HD yesterday complicated by hypotension. UF 800 ml. Unfortunately unable to tolerate PO. Review of Systems Review of Systems: All systems reviewed & are unremarkable except as noted in HPI & below Physical Exam Constitutional: + acute distress and + ill appearing Eyes: no scleral abnormality and no corneal abnormality ENMT: Mouth: no oral mucosal abnormality and oral mucous membranes not dry Neck: normal visual inspection and trachea midline Respiratory: + respiratory distress Auscultation: + rhonchi Cardiovascular: Rate/Rhythm: regular rate Heart Sounds: normal S1 and normal S2 Extremities: no edema Musculoskeletal: Extremities: no cyanosis and no clubbing Skin: normal turgor; no lesions Neurologic: Motor/Sensory: no tremor and no asterixis Psychiatric: Orientation: alert and oriented x 3 Results & Data ([facility]) Vital Signs (Past 12 Hours) Vital Signs Temp Pulse Resp BP Pulse Ox 10/28/20 07:27 76 10/28/20 05:43 36.5 C 67 16 115/53 L 95 10/28/20 04:43 36.5 C 75 15 123/48 L 90 10/28/20 04:00 110/48 L 10/28/20 03:43 36.6 C 71 15 128/48 L 93 10/28/20 02:43 36.6 C 73 14 120/54 L 92 10/28/20 01:43 36.6 C 65 18 111/67 95 10/28/20 00:43 36.6 C 68 15 137/54 L 94 10/28/20 00:00 125/50 L 10/27/20 23:43 36.6 C 61 8 L 136/52 L 94 10/27/20 22:43 36.5 C 63 13 121/57 L 97 10/27/20 21:44 36.5 C 62 13 134/69 97 Laboratory Results Laboratory Results - last 24 hr 10/27/20 10/27/20 10/27/20 06:35 11:39 13:02 WBC RBC Hgb Hct MCV MCH MCHC RDW Std Deviation RDW Coeff of Roxanna Plt Count MPV Immature Gran % (Auto) Neut % (Auto) Lymph % (Auto) King[place]isher % (Auto) Eos % (Auto) Baso % (Auto) Neut # (Auto) Lymph # (Auto) Kingfisher # (Auto) Eos # (Auto) Baso # (Auto) Immature Gran # (Auto) Sample Site Art Line POC pH 7.37 POC pCO2 39 POC pO2 61 L POC HCO3 22 POC Total CO2 23 L POC Base Excess -3.0 POC ABG O2 Sat 90.0 Brandon Test NA O2 Delivery Device Cannula Sodium Potassium Chloride Carbon Dioxide Anion Gap BUN Creatinine Est Cr Clr Drug Dosing Est GFR ( Amer) Est GFR (Non-Af Amer) BUN/Creatinine Ratio Glucose POC Glucose 86 POC Glucose (other) 86 Calcium Phosphorus Magnesium 10/27/20 10/28/20 10/28/20 16:24 00:43 04:34 WBC 16.73 H RBC 3.62 L Hgb 10.3 L Hct 31.0 L MCV 85.6 MCH 28.5 MCHC 33.2 RDW Std Deviation 55.8 H RDW Coeff of Roxanna 18.5 H Plt Count 207 MPV 10.4 Immature Gran % (Auto) 0.5 Neut % (Auto) 87.5 Lymph % (Auto) 8.1 Kingfisher % (Auto) 3.0 Eos % (Auto) 0.8 Baso % (Auto) 0.1 Neut # (Auto) 14.63 H Lymph # (Auto) 1.36 Kingfisher # (Auto) 0.51 Eos # (Auto) 0.14 Baso # (Auto) 0.01 Immature Gran # (Auto) 0.08 H Sample Site POC pH POC pCO2 POC pO2 POC HCO3 POC Total CO2 POC Base Excess POC ABG O2 Sat Brandon Test O2 Delivery Device Sodium Potassium Chloride Carbon Dioxide Anion Gap BUN Creatinine Est Cr Clr Drug Dosing Est GFR ( Amer) Est GFR (Non-Af Amer) BUN/Creatinine Ratio Glucose POC Glucose 129 H 79 POC Glucose (other) Calcium Phosphorus Magnesium 10/28/20 04:34 WBC RBC Hgb Hct MCV MCH MCHC RDW Std Deviation RDW Coeff of Roxanna Plt Count MPV Immature Gran % (Auto) Neut % (Auto) Lymph % (Auto) Kingfisher % (Auto) Eos % (Auto) Baso % (Auto) Neut # (Auto) Lymph # (Auto) [place]isher # (Auto) Eos # (Auto) Baso # (Auto) Immature Gran # (Auto) Sample Site POC pH POC pCO2 POC pO2 POC HCO3 POC Total CO2 POC Base Excess POC ABG O2 Sat Brandon Test O2 Delivery Device Sodium 132 L Potassium 5.0 Chloride 101 Carbon Dioxide 21 Anion Gap 10.0 BUN 62 H Creatinine 4.43 H D Est Cr Clr Drug Dosing 8.4 Est GFR ( Amer) 10.7 Est GFR (Non-Af Amer) 9.2 BUN/Creatinine Ratio 14.0 Glucose 72 POC Glucose POC Glucose (other) Calcium 8.7 Phosphorus 6.6 H D Magnesium 2.6 H PG Care Time/CCT Total # of Minutes Spent Total Time Spent with Patient: Total time spent is greater than 50% in coordination of care (as documented) at patient's floor/unit and/or counseling patient: Coding Level of Care Code 50132 Subseq Hosp Care Lvl 3 Diagnoses Acute kidney injury N17.9 Anemia D64.9 Pneumonia due to 2019 novel coronavirus U07.1; J12.82
[2020-10-28] MEDS: ASPIRIN 81 MG CHEW NG SCH (10:00)
[2020-10-28] MEDS: MIDODRINE HCL 2.5 MG TAB PO SCH ×3 (10:00→16:53)
[2020-10-28] MEDS: ESCITALOPRAM OXALATE ORAL SOLN 20 MG/20 ML UDP PO SCH (10:00)
[2020-10-28] MEDS: clonazePAM 0.25 MG TAB PO SCH (10:00)
--- NOTE | 2020-10-28 10:00 | XRay Report ---
KUB HISTORY: NG tube placement COMPARISON: None. FINDINGS: The bowel gas pattern is unremarkable. There are no dilated loops of small bowel to suggest an obstruction. The nasogastric tube terminates in a postpyloric position. Bilateral airspace opaci ties persist. No pneumoperitoneum or pneumatosis. Right jugular central venous catheter terminates at the SVC. IMPRESSION: The feeding tube terminates in a postpyloric position. ACT 112: Negative or not required by law. Electronically signed by: Jon Camacho M.D. 10/28/2020 9:59 AM
[2020-10-28] MEDS: HEPARIN SOD (PORCINE) 1000 UNIT/ML IV SCH (12:57)
--- NOTE | 2020-10-28 13:11 | ENT Consultation ---
Date of Consultation October 28, 2020 Assessment & Plan (1) Pneumonia due to 2019 novel coronavirus: Status post Covid pneumonia, extubated 10/25, hoarseness. She is resting comfortably. I do not see reason to boudreaux fiberoptic laryngoscopy. I can see her in the office when she has fully recovered. Case was discussed with [place] Deleon. (2) Acute respiratory failure with hypoxemia: (3) Severe sepsis: (4) Acute kidney injury: (5) Bacterial pneumonia: (6) Hoarseness of voice: History of Present Illness Reason for Consultation: Hoarseness Attending Physician: Parminder Mcintosh DO History of Present Illness 75-year-old lady with Covid pneumonia intubated for 2 weeks developed hoarseness. Allergies Allergy/AdvReac Type Severity Reaction Status Date / Time Sulfa (Sulfonamide Allergy Mild itchy and Verified 10/10/20 20:08 Antibiotics) feeling drained Home Medications Medication Instructions Recorded Confirmed Type Glucosamine Chondroitin PLUS 200 mcg PO QDL 06/16/18 10/10/20 History acetaminophen 325 mg tablet 325 - 650 mg PO Q6H PRN 06/16/18 10/10/20 History (Tylenol) alendronate 70 mg tablet (Fosamax) 1 tab PO WK 06/16/18 10/10/20 History ascorbic acid (vitamin C) 500 mg 500 mg PO QDL 06/16/18 10/10/20 History tablet (Vitamin C) aspirin 81 mg tablet,delayed 81 mg PO QDL 06/16/18 10/10/20 History release atorvastatin 10 mg tablet 10 mg PO HS 06/16/18 10/10/20 History biotin 1 mg tablet 1 mg PO QAM 06/16/18 10/10/20 History calcium carbonate 600 mg (1,500 2 tab PO BID 06/16/18 10/10/20 History mg)-vitamin D3 400 unit tablet (Calcium 600 + D(3)) ibuprofen 200 mg tablet 400 mg PO QAM 06/16/18 10/10/20 History lutein 20 mg tablet 20 mg PO QDL 06/16/18 10/10/20 History magnesium oxide 250 mg PO QDL 06/16/18 10/10/20 History omega 3 350 mg-dha 235 mg-epa 90 3 cap PO QAM 06/16/18 10/10/20 History mg-fish oil 597 mg capsule,delay rel (Weikert-3) pediatric multivit no.43 with iron 1 tab PO QAM 06/16/18 10/10/20 History fumarate 18 mg iron chewable tablet (Flintstones Complete (iron)) vitamin E 400 unit capsule 400 unit PO QDL 06/16/18 10/10/20 History escitalopram oxalate 20 mg tablet 20 mg PO DAILY 10/10/20 10/10/20 History Patient History Medical History Anxiety Anxiety Hyperlipidemia Palliative care encounter Pneumomediastinum Surgical History History of appendectomy with right salpingo-oophorectomy History of colonoscopy History of esophagogastroduodenoscopy (EGD) History of right salpingo-oophorectomy History of umbilical hernia repair had left tubal ligation at same time Status post tubal ligation left with hernia repair Family History Other No family history of adverse response to anesthesia Social History Smoking Status: Former smoker Second Hand Exposure: No; Hx Alcohol Use: Yes Alcohol type: wine Hx Substance Use: No Preferred Language: Uzbek Communication Ability: Effective Sales 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 Advertising Required: No Beliefs That Will Affect Care: None marital status: Current Living Situation: Spouse Feels Safe at Home: Yes Assistive Devices: Oxygen - Continuous Physical Exam Constitutional: WD/WN, vitals as above Eyes: PERRL, conjunctivae normal, anicteric sclerae ENMT: external ear and nose normal, oropharynx normal Neck: trachea midline, no thyromegaly Results & Data ([facility]) Vital Signs (Past 12 Hours) Vital Signs Temp Pulse Pulse Resp BP Pulse Ox 10/28/20 12:51 80 98/62 L 10/28/20 12:36 72 105/73 10/28/20 12:21 76 119/70 10/28/20 12:06 73 109/64 10/28/20 11:51 72 100/53 L 10/28/20 11:36 72 116/56 L 10/28/20 11:21 86 83/52 L 10/28/20 11:06 73 98/53 L 10/28/20 10:51 74 96/57 L 10/28/20 10:36 72 111/80 10/28/20 10:19 72 114/55 L 10/28/20 10:06 36.4 C L 75 65 17 101/55 L 95 10/28/20 09:43 36.4 C L 74 12 117/55 L 96 10/28/20 08:43 36.4 C L 71 13 131/60 95 10/28/20 08:00 74 117/60 10/28/20 07:43 36.5 C 69 10 L 95/43 L 96 10/28/20 07:27 76 10/28/20 06:43 36.4 C L 69 10 L 117/55 L 94 10/28/20 05:43 36.5 C 67 16 115/53 L 95 10/28/20 04:43 36.5 C 75 15 123/48 L 90 10/28/20 04:00 110/48 L 10/28/20 03:43 36.6 C 71 15 128/48 L 93 10/28/20 02:43 36.6 C 73 14 120/54 L 92 10/28/20 01:43 36.6 C 65 18 111/67 95
[2020-10-28] MEDS: NOVASOURCE RENAL 2.0 CAL 1000ML BAG NG SCH (14:25)
[2020-10-28] MEDS: TUBE FEEDING WATER FLUSH NG SCH ×4 (14:25→22:20)
--- NOTE | 2020-10-28 14:43 | XRay Report ---
XR chest 1V portable CLINICAL HISTORY: f/u COMPARISON STUDY: October 27, 2020 FINDINGS: No pneumothorax. No pleural effusion. Mixed reticular and airspace opacities throughout bilateral lungs appears slightly worsened since rec ent prior study performed yesterday. Cardiomediastinal silhouette is stable. Aorta is calcified. Menisci vasculature is obscured.. Osseous structures: unremarkable Table position of right-sided venous catheter. IMPRESSION: 1. Interval worsening of multifocal pneumonia. ACT 112: Negative or not required by law. The above report was generated using voice recognition software. It may contain grammatical, syntax o r spelling errors. Electronically signed by: Ainsley Pulido DO 10/28/2020 2:41 PM
[2020-10-28] MEDS: NOREPINEPHRINE/D5W 16 MG/500 ML BAG IV SCH (19:06)
[2020-10-29] MEDS: TUBE FEEDING WATER FLUSH NG SCH ×6 (02:20→23:59)
[2020-10-29 05:14] LABS: Basophils # (auto) 0.02 K/uL (0-0.2); Basophils % (auto) 0.1 %; Eosinophils # (auto) 0.17 K/uL (0-0.5); Eosinophils % (auto) 1.1 %; Hematocrit (blood only) 30.7 % (37-47); Hemoglobin 10.3 g/dL (12.0-16.0); Immature Granulocytes # (auto) 0.07 K/uL (0.00-0.02); Immature Granulocytes % (auto) 0.4 %; Lymphocytes % (auto) 4.9 %; Mean Corpuscular Hemoglobin 28.4 pg (25-34); Mean Corpuscular Hgb Conc 33.6 g/dL (32-36); Mean Corpuscular Volume 84.6 fL (80-100); Mean Platelet Volume 10.9 fL (7.4-10.4); Monocytes # (auto) 1.11 K/uL (0.11-0.59); Monocytes % (auto) 6.9 %; Neutrophils % (auto) 86.6 %; Platelet Count 255 K/uL (130-400); RDW Coefficient of Variation 18.6 % (11.5-14.5); RDW Standard Deviation 55.5 fL (36.4-46.3); Red Blood Count 3.63 M/uL (4.2-5.4); White Blood Count 16.17 K/uL (4.8-10.8)
[2020-10-29 05:30] LABS: BUN Creatinine Ratio 13.1 (10-20); Calcium 8.8 mg/dl (8.5-10.1); Creatinine Clr Calc Pharmacy 9.9 ml/min; Est GFR (African American) 12.9 ml/min; Est GFR (Non-African American) 11.1 ml/min; Magnesium 2.4 mg/dl (1.8-2.4); Phosphorus 5.8 mg/dl (2.5-4.9); Potassium 4.6 mmol/L (3.5-5.1)
[2020-10-29] MEDS: INSULIN ASPART 100 UNITS/ML 3 ML PEN SC SCH ×4 (06:14→23:59)
--- NOTE | 2020-10-29 08:21 | Hospitalist Progress Note ---
Date of Service October 29, 2020 Assessment & Plan (1) Acute respiratory failure with hypoxemia: Plan: Acute respiratory failure with hypoxemia 2/2 Covid pneumonia complicated by renal failure Covid positive, - On extended Decadron protocol, currently on 10mg dose, last dose is 10/30 Date of intubation: 10/16/2020 - extubated 10/25/20, stable on wall high flow, 6L, oxygen requirements improving Patient completed prior 5-day course of azithromycin/Rocephin for superimposed infection, no additional antibiotics indicated at this time Remdesivir - first dose given on 10/10. Received dose #2 on 10/11. - Due to development of LENNOX and transaminitis the remdesivir was stopped after 2nd dose. -s/p Tocilizumab - 10/13/20. -s/p full 5-day course of rocephin/zithromax. (2) Severe sepsis: Plan: -2nd to COVID-19 pneumonia. -still on Levophed 0.4mcg this morning, continue to try to wean off -Continue supportive care. (3) Acute kidney injury: Plan: -ATN due to COVID-19 (and/or remdesivir) with resulting severe acute renal failure. -Temporary HD catheter placed 10/15. -post HD: 10/17, 10/18, 10/21. tolerated HD on 10/24 and 10/25 and 10/27 and brief session on 10/28 Daily BMP -Appreciate nephrology assistance will need tunneled HD catheter placed as she is not showing signs of recovery has femoral catheter right now (4) Pneumonia due to 2019 novel coronavirus: Plan: - completed treatment (5) Bacterial pneumonia: Plan: s/p ceftriaxone + azithromycin x 5 days earlier this stay. (6) Hypotension: Plan: 2nd to severe sepsis, COVID-19, medications (propofol), etc. Continue levophed, starting Midodrine (7) Elevated troponin: Plan: -Peak trop 0.154. -2nd to myocardial demand ischemia. (8) Elevated d-dimer: Plan: -4890 on admission (10/10/20). -LE dopplers negative for DVT b/l. -Unable to perform CT to r/o PE due to LENNOX. (9) Elevated liver enzymes: Plan: -transaminitis 2nd to COVID-19. -ast/alt normalized (10) Hypokalemia: Plan: Resolved (11) Metabolic acidosis: Plan: 2nd to acute renal failure and severe sepsis. ongoing. defer Rx to ICU team. (12) Fecal occult blood test positive: Plan: -Melanic stools on second day of admission. -Cont PPI for GI prophylaxis. - transfused one unit PRBC on 10/24, Hb up to 10 now (13) Hyponatremia: Plan: -Mild, ongoing, 2nd LENNOX/ARF. -Daily bmp. (14) Pneumothorax: Plan: Chest tube placed by critical care team removed 10/26, no residual PTX Plan: -appreciate ICU and palliative care assistance -family meeting with palliative took place on 10/19 -- patient made DNR, no transfer to tertiary care- but otherwise continue current care plan (HD, mech ventilation, etc). continue in ICU for close monitoring, can downgrade once off Levophed Admission and Anticipated Discharge Date Admission Date: October 10, 2020 Subjective patient laying in bed, hoarse voice, appreciate ENT consult, follow up in clinic breathing stable, no chest pain tolerating tube feeds via coresafe labs reviewed still on 0.4mcg of Levophed, SBP 98 while at the bedside Review of Systems Review of Systems: All systems reviewed & are unremarkable except as noted in Subjective Constitutional: + fatigue and + weakness; no fever Respiratory: no cough and no dyspnea Gastrointestinal: + diarrhea/loose stools; no abdominal pain, no nausea, no vomiting and no constipation Physical Exam Constitutional: well developed, + frail appearing and comfortable; no acute distress Neck: trachea midline, no thyromegaly Respiratory: no respiratory distress and no labored breathing Auscultation: no crackles, no rales and no wheezes Cardiovascular: RRR, no murmur, no edema Gastrointestinal (Abdomen): normal bowel sounds, soft, nontender, no hepatosplenomegaly Skin: no rashes, warm and dry Neurologic: normal touch/pain/proprioception, CN's II-XI intact bilaterally, moves all extremities and awake; no focal motor deficits Psychiatric: Orientation: alert, oriented x 3 and cooperative Results & Data Results & Data ([facility]) Vital Signs (Past 12 Hours) Vital Signs Temp Pulse Resp BP Pulse Ox 10/29/20 07:06 37.2 C 80 17 94/52 L 93 10/29/20 06:36 37.2 C 79 14 84/52 L 94 10/29/20 06:06 37.2 C 84 13 87/50 L 93 10/29/20 05:36 37.2 C 84 17 95/50 L 89 L 10/29/20 05:06 37.2 C 77 14 94/54 L 92 10/29/20 04:36 37.2 C 76 14 80/57 L 90 10/29/20 04:06 37.2 C 77 12 92/56 L 90 10/29/20 03:36 37.2 C 78 12 103/44 L 92 10/29/20 03:06 37.2 C 73 12 119/67 93 10/29/20 02:06 37.0 C 77 12 98/54 L 92 10/29/20 01:06 37.1 C 79 12 103/50 L 89 L 10/29/20 00:06 37.1 C 72 14 95/56 L 97 10/28/20 23:06 37.0 C 75 16 108/52 L 91 10/28/20 22:06 37.1 C 65 15 108/51 L 95 10/28/20 21:09 37.1 C Laboratory Results Laboratory Results - last 24 hr 10/28/20 10/28/20 10/28/20 13:11 18:04 23:54 WBC RBC Hgb Hct MCV MCH MCHC RDW Std Deviation RDW Coeff of Roxanna Plt Count MPV Immature Gran % (Auto) Neut % (Auto) Lymph % (Auto) Leake % (Auto) Eos % (Auto) Baso % (Auto) Neut # (Auto) Lymph # (Auto) [place]ake # (Auto) Eos # (Auto) Baso # (Auto) Immature Gran # (Auto) Sodium Potassium Chloride Carbon Dioxide Anion Gap BUN Creatinine Est Cr Clr Drug Dosing Est GFR ( Amer) Est GFR (Non-Af Amer) BUN/Creatinine Ratio Glucose POC Glucose 92 104 H 103 H Calcium Phosphorus Magnesium 10/29/20 10/29/20 10/29/20 04:48 04:48 06:04 WBC 16.17 H RBC 3.63 L Hgb 10.3 L Hct 30.7 L MCV 84.6 MCH 28.4 MCHC 33.6 RDW Std Deviation 55.5 H RDW Coeff of Roxanna 18.6 H Plt Count 255 MPV 10.9 H Immature Gran % (Auto) 0.4 Neut % (Auto) 86.6 Lymph % (Auto) 4.9 Leake % (Auto) 6.9 Eos % (Auto) 1.1 Baso % (Auto) 0.1 Neut # (Auto) 14.00 H Lymph # (Auto) 0.80 L Leake # (Auto) 1.11 H Eos # (Auto) 0.17 Baso # (Auto) 0.02 Immature Gran # (Auto) 0.07 H Sodium 135 L Potassium 4.6 Chloride 103 Carbon Dioxide 26 Anion Gap 6.0 BUN 50 H Creatinine 3.80 H D Est Cr Clr Drug Dosing 9.9 Est GFR ( Amer) 12.9 Est GFR (Non-Af Amer) 11.1 BUN/Creatinine Ratio 13.1 Glucose 113 H POC Glucose 125 H Calcium 8.8 Phosphorus 5.8 H Magnesium 2.4 Medications Administered Current Inpatient Medications Aspirin (Aspirin 81 Mg Chew) 81 mg NG QDL CHELSEY Stop: 11/16/20 11:29 Last Admin: 10/28/20 10:00 Dose: 81 mg Documented by: Clonazepam (Clonazepam 0.25 Mg Tab) 0.25 mg PO DAILY CHLESEY Stop: 11/26/20 08:59 Last Admin: 10/28/20 10:00 Dose: 0.25 mg Documented by: Dextrose (Dextrose 50% 50 Ml Syringe) 25 - 50 ml IV UD PRN; Protocol PRN Reason: Hypoglycemia Protocol Stop: 11/12/20 08:44 Enteral Nutritional Formula (Novasource Renal 2.0 Moustapha 1000ml Bag) 1,000 ml NG CONT CHELSEY; Protocol Stop: 11/27/20 10:18 Last Admin: 10/28/20 14:25 Dose: 1,000 ml Documented by: Escitalopram Oxalate (Escitalopram Oxalate Oral Soln 20 Mg/20 Ml Udp) 20 mg PO QAM [facility] Stop: 11/16/20 10:59 Last Admin: 10/28/20 10:00 Dose: 20 mg Documented by: Glucagon (Glucagon For Inj 1 Mg Vial) 1 mg SQ UD PRN; Protocol PRN Reason: Hypoglycemia Protocol Stop: 11/12/20 08:44 Glucose (Glucose 40% Gel 15 Gm Tube) 15 - 30 gm PO UD PRN; Protocol PRN Reason: Hypoglycemia Protocol Stop: 11/12/20 08:44 Glucose (Glucose 10 Tabs/Tube) 4 - 8 tabs PO UD PRN; Protocol PRN Reason: Hypoglycemia Protocol Stop: 11/12/20 08:44 Heparin Sodium (Porcine) (Heparin Sod 5,000 Unit/0.5 Ml Vial) 5,000 units SQ Q12 CHELSEY Stop: 11/24/20 11:14 Last Admin: 10/28/20 20:49 Dose: 5,000 units Documented by: Hydralazine HCl (Hydralazine Hcl 20 Mg/Ml Vial) 10 mg IV Q6 PRN PRN Reason: SBP>160 Stop: 11/13/20 08:03 Last Admin: 10/16/20 05:15 Dose: 10 mg Documented by: Norepinephrine Bitartrate (Levophed/D5w) 16 mg in 500 mls @ 4.95 mls/hr IV .Q24H CHELSEY; Protocol Stop: 11/20/20 11:59 Last Titration: 10/29/20 07:35 Dose: 0.04 mcg/kg/min, 5 mls/hr Documented by: Dexamethasone 10 mg/ Syringe 2.5 mls @ 1 mls/min IV QAM CHELSEY Stop: 10/30/20 09:03 Last Admin: 10/28/20 09:08 Dose: 1 mls/min Documented by: Pantoprazole Sodium 40 mg/ (Syringe) 10 mls @ 5 mls/min IV BID CHELSEY Stop: 11/23/20 20:59 Last Admin: 10/28/20 20:49 Dose: 5 mls/min Documented by: Insulin Aspart (Insulin Aspart 100 Units/Ml 3 Ml Pen) 0 units SC Q6 CHELSEY Stop: 10/31/20 23:59 Last Admin: 10/29/20 06:14 Dose: Not Given Documented by: Midodrine (Midodrine Hcl 2.5 Mg Tab) 5 mg PO TID@0800,1200,1700 CHELSEY Stop: 11/25/20 16:59 Last Admin: 10/28/20 16:53 Dose: 5 mg Documented by: Miscellaneous (Carbohydrates For Hypoglycemia ) 15 - 30 gm PO UD PRN PRN Reason: Hypoglycemia Treatment Stop: 11/12/20 08:44 Oxycodone HCl (Oxycodone Hcl Ir 5 Mg Tab (Immediate Release)) 5 mg NG Q6 PRN PRN Reason: pain Stop: 08/29/21 11:59 Sterile Water (Tube Feeding Water Flush) 30 ml NG Q4H CHELSEY Stop: 11/27/20 10:19 Last Admin: 10/29/20 06:14 Dose: 30 ml Documented by: PG Care Time/CCT Total # of Minutes Spent Total Time Spent with Patient: Total time spent is greater than 50% in coordination of care (as documented) at patient's floor/unit and/or counseling patient: Coding Level of Care Code 06348 Subseq Hosp Care Lvl 2 Diagnoses Acute respiratory failure with hypoxemia J96.01 Severe sepsis A41.9; R65.20 Acute kidney injury N17.9 Pneumonia due to 2019 novel coronavirus U07.1; J12.82 Bacterial pneumonia J15.9 Hypotension I95.9 Elevated troponin R77.8 Elevated d-dimer R79.89 Elevated liver enzymes R74.8 Hypokalemia E87.6 Metabolic acidosis E87.2 Fecal occult blood test positive R19.5 Hyponatremia E87.1 Pneumothorax J93.9
[2020-10-29] MEDS ORDERED: clonazePAM 0.25 MG TAB PO PRN (08:31)
--- NOTE | 2020-10-29 08:34 | Critical Care Progress Note ---
Date of Service October 29, 2020 Assessment & Plan (1) Pneumonia due to 2019 novel coronavirus: (2) Acute respiratory failure with hypoxemia: (3) Bacterial pneumonia: (4) Acute kidney injury: (5) Metabolic acidosis: (6) Pneumothorax: (7) Pneumomediastinum: Plan: Impression: 75-year-old female admitted with COVID-19 pneumonia. Course has been complicated by acute delirium requiring intubation, initiation of vasopressors for shock, ARDS, as well as acute renal failure requiring initiation of hemodialysis. Recommendations: 1. Neurologic: Clonazepam 0.25 mg daily changed to as needed. Oxycodone changed to 5 mg every 6 hours as needed. 2. Cardiovascular: Hypotension slowly resolving. Continue midodrine 5 mg 3 times daily. Trying to wean off Levophed drip. No signs of sepsis at this time. 3. Pulmonary: Extubated 10/25/2020. Tolerating supplemental oxygen well. Maintain oxygen saturations 90 to 92%. Currently requiring supplemental oxygen via nasal cannula. Chest tube removed at bedside. No evidence of residual pneumothorax. She does have residual pneumomediastinum which will resolve with time. CT chest with contrast from 10/27/2020 without evidence of pulmonary embolism. She has diffuse groundglass opacities and likely developed post fibrotic ARDS/viral pneumonia. Completing a course of DEXA ARDS steroid dosing. 4. ID: Completed 5 days of azithromycin and Rocephin. Received Tocilizumab. No signs of infection at present. 5. Renal: Likely ATN - multifactorial. Remains anuric. Renal replacement per nephrology. Will need tunneled catheter likely early next week. 6. GI: Small bore feeding tube placed at bedside. Continue tube feeds. 7. Endocrine: Glycemic control per ICU pharmacy. 8. Heme-onc: Status post 1 unit packed RBC 10/24/2020. Hemoglobin improved dramatically likely due to contraction from dialysis as well. Continue heparin 5000 units twice daily. May be stable for transfer to floor once off Levophed. Admission and Anticipated Discharge Date Admission Date: October 10, 2020 Subjective Patient seen and examined this morning. He is awake and alert. Her voice is hoarse and weak. She denies any complaint at present. She has a feeding tube through her nose. She is currently on low-dose of Levophed. No significant issues overnight. Review of Systems Review of Systems: All systems reviewed & are unremarkable except as noted in HPI & below Physical Exam Constitutional: No apparent distress. Frail-appearing ENMT: Feeding tube noted in her right nares. Neck: trachea midline, no thyromegaly Respiratory: no respiratory distress Diminished lung sounds bilaterally. Cardiovascular: RRR, no murmur, no edema Gastrointestinal (Abdomen): normal bowel sounds, soft, nontender, no hepatosplenomegaly Musculoskeletal: Extremities: extremities normal to inspection Skin: no rashes, warm and dry Lymphatic: no cervical lymphadenopathy Results & Data Results & Data ([facility]) Vital Signs (Past 12 Hours) Vital Signs Temp Pulse Resp BP Pulse Ox 10/29/20 07:06 99.0 F 80 17 94/52 L 93 10/29/20 06:36 99.0 F 79 14 84/52 L 94 10/29/20 06:06 99.0 F 84 13 87/50 L 93 10/29/20 05:36 99.0 F 84 17 95/50 L 89 L 10/29/20 05:06 99.0 F 77 14 94/54 L 92 10/29/20 04:36 99.0 F 76 14 80/57 L 90 10/29/20 04:06 99.0 F 77 12 92/56 L 90 10/29/20 03:36 99.0 F 78 12 103/44 L 92 10/29/20 03:06 99.0 F 73 12 119/67 93 10/29/20 02:06 98.6 F 77 12 98/54 L 92 10/29/20 01:06 98.8 F 79 12 103/50 L 89 L 10/29/20 00:06 98.8 F 72 14 95/56 L 97 10/28/20 23:06 98.6 F 75 16 108/52 L 91 10/28/20 22:06 98.8 F 65 15 108/51 L 95 10/28/20 21:09 98.8 F vital signs, labs and imaging personally reviewed Coding Level of Care Code 67313 Subseq Hosp Care Lvl 3 Diagnoses Pneumonia due to 2019 novel coronavirus U07.1; J12.82 Acute respiratory failure with hypoxemia J96.01 Bacterial pneumonia J15.9 Acute kidney injury N17.9 Metabolic acidosis E87.2 Pneumothorax J93.9 Pneumomediastinum J98.2
--- NOTE | 2020-10-29 09:17 | Nephrology Progress Note ---
Date of Service October 29, 2020 Assessment & Plan (1) Acute kidney injury: Plan: Baseline creatinine <1 mg/dL. LENNOX c/w ATN. No signs of renal recovery; remains relatively anuric. Start HD 10/15. Dialysis catheter functioning well but will need permcath. I discussed TDC placement with Dr. Mcnair, patient is now off COVID isolation. Dr. Mcnair can place TDC placement early next week. Orders for HD today entered into EMR and reviewed with HD nurse. UF goal 1 L. Document I/O's. Repeat metabolic profile tomorrow AM. Medications currently appropriately dosed for kidney dysfunction. (2) Anemia: Plan: 1 u PRBC transfusion support provided 10/24. (3) Pneumonia due to 2019 novel coronavirus: Plan: Received Toclizumab 10/13/20. Completed Dexamethasone therapy. Remdesivir held due to LENNOX, elevated LFT's. Admission and Anticipated Discharge Date Admission Date: October 10, 2020 Subjective No acute events overnight. Resting comfortably in bed this AM. no fevers or chills. Breathing comfortably. Tolerated HD yesterday, UF 1 L. Review of Systems Review of Systems: All systems reviewed & are unremarkable except as noted in HPI & below Physical Exam Constitutional: + ill appearing; no acute distress Eyes: no scleral abnormality and no corneal abnormality ENMT: Mouth: no oral mucosal abnormality and oral mucous membranes not dry Neck: normal visual inspection and trachea midline Respiratory: no respiratory distress Auscultation: + diminished lung sounds and + rales Cardiovascular: Rate/Rhythm: regular rate Heart Sounds: normal S1 and normal S2 Extremities: no edema Musculoskeletal: Extremities: no cyanosis and no clubbing Skin: normal turgor; no lesions Neurologic: Motor/Sensory: no tremor and no asterixis Psychiatric: Orientation: alert and oriented x 3 Results & Data ([facility]) Vital Signs (Past 12 Hours) Vital Signs Temp Pulse Resp BP Pulse Ox 10/29/20 07:06 37.2 C 80 17 94/52 L 93 10/29/20 06:36 37.2 C 79 14 84/52 L 94 10/29/20 06:06 37.2 C 84 13 87/50 L 93 10/29/20 05:36 37.2 C 84 17 95/50 L 89 L 10/29/20 05:06 37.2 C 77 14 94/54 L 92 10/29/20 04:36 37.2 C 76 14 80/57 L 90 10/29/20 04:06 37.2 C 77 12 92/56 L 90 10/29/20 03:36 37.2 C 78 12 103/44 L 92 10/29/20 03:06 37.2 C 73 12 119/67 93 10/29/20 02:06 37.0 C 77 12 98/54 L 92 10/29/20 01:06 37.1 C 79 12 103/50 L 89 L 10/29/20 00:06 37.1 C 72 14 95/56 L 97 10/28/20 23:06 37.0 C 75 16 108/52 L 91 10/28/20 22:06 37.1 C 65 15 108/51 L 95 Laboratory Results Laboratory Results - last 24 hr 10/28/20 10/28/20 10/28/20 13:11 18:04 23:54 WBC RBC Hgb Hct MCV MCH MCHC RDW Std Deviation RDW Coeff of Roxanna Plt Count MPV Immature Gran % (Auto) Neut % (Auto) Lymph % (Auto) [place] % (Auto) Eos % (Auto) Baso % (Auto) Neut # (Auto) Lymph # (Auto) [place] # (Auto) Eos # (Auto) Baso # (Auto) Immature Gran # (Auto) Sodium Potassium Chloride Carbon Dioxide Anion Gap BUN Creatinine Est Cr Clr Drug Dosing Est GFR ( Amer) Est GFR (Non-Af Amer) BUN/Creatinine Ratio Glucose POC Glucose 92 104 H 103 H Calcium Phosphorus Magnesium 10/29/20 10/29/20 10/29/20 04:48 04:48 06:04 WBC 16.17 H RBC 3.63 L Hgb 10.3 L Hct 30.7 L MCV 84.6 MCH 28.4 MCHC 33.6 RDW Std Deviation 55.5 H RDW Coeff of Roxanna 18.6 H Plt Count 255 MPV 10.9 H Immature Gran % (Auto) 0.4 Neut % (Auto) 86.6 Lymph % (Auto) 4.9 [place] % (Auto) 6.9 Eos % (Auto) 1.1 Baso % (Auto) 0.1 Neut # (Auto) 14.00 H Lymph # (Auto) 0.80 L [place] # (Auto) 1.11 H Eos # (Auto) 0.17 Baso # (Auto) 0.02 Immature Gran # (Auto) 0.07 H Sodium 135 L Potassium 4.6 Chloride 103 Carbon Dioxide 26 Anion Gap 6.0 BUN 50 H Creatinine 3.80 H D Est Cr Clr Drug Dosing 9.9 Est GFR ( Amer) 12.9 Est GFR (Non-Af Amer) 11.1 BUN/Creatinine Ratio 13.1 Glucose 113 H POC Glucose 125 H Calcium 8.8 Phosphorus 5.8 H Magnesium 2.4 PG Care Time/CCT Total # of Minutes Spent Total Time Spent with Patient: Total time spent is greater than 50% in coordination of care (as documented) at patient's floor/unit and/or counseling patient: Coding Level of Care Code 69128 Subseq Hosp Care Lvl 3 Diagnoses Acute kidney injury N17.9 Anemia D64.9 Pneumonia due to 2019 novel coronavirus U07.1; J12.82
[2020-10-29] MEDS ORDERED: SODIUM CHLORIDE 0.9% 1000ML 1,000 ML IV PRN (09:20)
[2020-10-29] MEDS: ESCITALOPRAM OXALATE ORAL SOLN 20 MG/20 ML UDP PO SCH (09:31)
[2020-10-29] MEDS: MIDODRINE HCL 2.5 MG TAB PO SCH ×3 (09:31→17:14)
[2020-10-29] MEDS: HEPARIN SOD 5,000 UNIT/0.5 ML VIAL SQ SCH ×2 (09:31→20:35)
[2020-10-29] MEDS: ASPIRIN 81 MG CHEW NG SCH (09:31)
[2020-10-29] MEDS: dexAMETHasone 10 MG in SYRINGE 0 ML IV SCH (09:32)
[2020-10-29] MEDS: PANTOprazole 40 MG in SYRINGE 0 ML IV SCH ×2 (09:32→20:36)
[2020-10-29] MEDS: NOREPINEPHRINE/D5W 16 MG/500 ML BAG IV SCH (12:04)
[2020-10-29] MEDS: NOVASOURCE RENAL 2.0 CAL 1000ML BAG NG SCH (14:40)
[2020-10-30] MEDS: TUBE FEEDING WATER FLUSH NG SCH ×6 (02:08→22:20)
[2020-10-30 05:33] LABS: Basophils # (auto) 0.01 K/uL (0-0.2); Basophils % (auto) 0.1 %; Eosinophils # (auto) 0.07 K/uL (0-0.5); Eosinophils % (auto) 0.4 %; Hematocrit (blood only) 33.9 % (37-47); Hemoglobin 11.2 g/dL (12.0-16.0); Immature Granulocytes # (auto) 0.09 K/uL (0.00-0.02); Immature Granulocytes % (auto) 0.5 %; Lymphocytes # (auto) 0.66 K/uL (1.2-3.4); Lymphocytes % (auto) 3.3 %; Mean Corpuscular Hemoglobin 28.1 pg (25-34); Mean Corpuscular Volume 85.2 fL (80-100); Mean Platelet Volume 10.9 fL (7.4-10.4); Monocytes # (auto) 1.33 K/uL (0.11-0.59); Monocytes % (auto) 6.7 %; Neutrophils # (auto) 17.68 K/uL (1.4-6.5); Platelet Count 327 K/uL (130-400); RDW Coefficient of Variation 18.4 % (11.5-14.5); RDW Standard Deviation 54.7 fL (36.4-46.3); Red Blood Count 3.98 M/uL (4.2-5.4); White Blood Count 19.84 K/uL (4.8-10.8)
[2020-10-30 06:03] LABS: BUN Creatinine Ratio 17.4 (10-20); Calcium 8.7 mg/dl (8.5-10.1); Creatinine Clr Calc Pharmacy 11.3 ml/min; Est GFR (African American) 14.9 ml/min; Est GFR (Non-African American) 12.9 ml/min; Magnesium 2.2 mg/dl (1.8-2.4); Potassium 4.1 mmol/L (3.5-5.1)
[2020-10-30 06:09] LABS: Phosphorus 3.1 mg/dl (2.5-4.9)
[2020-10-30] MEDS: INSULIN ASPART 100 UNITS/ML 3 ML PEN SC SCH ×3 (06:24→17:40)
[2020-10-30] MEDS ORDERED: HEPARIN SOD (PORCINE) 1000 UNIT/ML IV SCH (07:00)
[2020-10-30] MEDS ORDERED: HEPARIN SOD (PORCINE) 1000 UNIT/ML IV ONE (07:00)
[2020-10-30] MEDS ORDERED: SODIUM CHLORIDE 0.9% 1000ML 1,000 ML IV PRN (07:00)
[2020-10-30] MEDS: dexAMETHasone 10 MG in SYRINGE 0 ML IV SCH (07:39)
[2020-10-30] MEDS: MIDODRINE HCL 2.5 MG TAB PO SCH ×3 (07:39→16:11)
[2020-10-30] MEDS: ESCITALOPRAM OXALATE ORAL SOLN 20 MG/20 ML UDP PO SCH (07:39)
[2020-10-30] MEDS: PANTOprazole 40 MG in SYRINGE 0 ML IV SCH ×2 (07:39→21:37)
[2020-10-30] MEDS: HEPARIN SOD 5,000 UNIT/0.5 ML VIAL SQ SCH ×2 (07:40→20:29)
--- NOTE | 2020-10-30 09:01 | Critical Care Progress Note ---
Date of Service October 30, 2020 Assessment & Plan (1) Pneumonia due to 2019 novel coronavirus: (2) Acute respiratory failure with hypoxemia: (3) Bacterial pneumonia: (4) Acute kidney injury: (5) Metabolic acidosis: (6) Pneumothorax: (7) Pneumomediastinum: (8) Diarrhea: Plan: Impression: 75-year-old female admitted with COVID-19 pneumonia. Course has been complicated by acute delirium requiring intubation, initiation of vasopressors for shock, ARDS, as well as acute renal failure requiring initiation of hemodialysis. Recommendations: 1. Neurologic: Clonazepam 0.25 mg daily changed to as needed. Oxycodone changed to 5 mg every 6 hours as needed. 2. Cardiovascular: Hypotension slowly resolving. Continue midodrine 5 mg 3 times daily. Trying to wean off Levophed drip. No signs of sepsis at this time. 3. Pulmonary: Extubated 10/25/2020. Tolerating supplemental oxygen well. Maintain oxygen saturations 90 to 92%. Currently requiring supplemental oxygen via nasal cannula. Chest tube removed at bedside. No evidence of residual pneumothorax. She does have residual pneumomediastinum which will resolve with time. CT chest with contrast from 10/27/2020 without evidence of pulmonary embolism. She has diffuse groundglass opacities and likely developed post fibrotic ARDS/viral pneumonia. Completing a course of DEXA ARDS steroid dosing. She has evidence of vocal cord paralysis based on speech therapy evaluation. ENT consulted and did not feel that intervention is required at this time. She will need speech therapy and ENT follow-up. Continue flutter valve and incentive spirometer. 4. ID: Completed 5 days of azithromycin and Rocephin. Received Tocilizumab. She does have ongoing diarrhea. Will check C. difficile, stool cultures and stool WBC. Start Flagyl IV 500 mg. 5. Renal: Likely ATN - multifactorial. Remains anuric. Renal replacement per nephrology. Will need tunneled catheter likely early next week. 6. GI: Small bore feeding tube placed at bedside. Continue tube feeds. GI consult placed due to ongoing diarrhea and the potential need for PEG tube placement given that she is n.p.o. due to vocal cord paralysis. 7. Endocrine: Glycemic control per ICU pharmacy. 8. Heme-onc: Status post 1 unit packed RBC 10/24/2020. Stable anemia. Continue heparin 5000 units twice daily. We will likely need transfer to an LTAC if continues to have vasopressor requirements and high oxygen requirements. Admission and Anticipated Discharge Date Admission Date: October 10, 2020 Subjective Patient seen and examined this morning. Continues to have difficulties phonating due to a weak voice. Continues on low doses of Levophed. Tolerated a short session of dialysis yesterday. Continues to need 8 L of oxygen. Has shortness of breath with minimal exertion. No abdominal complaints. Tolerating tube feeds. Review of Systems Review of Systems: All systems reviewed & are unremarkable except as noted in HPI & below Physical Exam Constitutional: No apparent distress. Frail-appearing ENMT: Feeding tube noted in her right nares. Neck: trachea midline, no thyromegaly Respiratory: no respiratory distress Diminished lung sounds bilaterally. Cardiovascular: RRR, no murmur, no edema Gastrointestinal (Abdomen): normal bowel sounds, soft, nontender, no hepatosplenomegaly Musculoskeletal: Extremities: extremities normal to inspection Skin: no rashes, warm and dry Lymphatic: no cervical lymphadenopathy Results & Data Results & Data ([facility]) Vital Signs (Past 12 Hours) Vital Signs Temp Pulse Resp BP Pulse Ox 10/29/20 23:39 99.0 F 87 18 115/63 93 10/29/20 22:36 99.0 F 84 16 105/59 L 79 L 10/29/20 21:39 99.1 F 92 H 17 115/68 92 Vital signs, labs and imaging reviewed Coding Level of Care Code 24046 Subseq Hosp Care Lvl 3 Diagnoses Pneumonia due to 2019 novel coronavirus U07.1; J12.82 Acute respiratory failure with hypoxemia J96.01 Bacterial pneumonia J15.9 Acute kidney injury N17.9 Metabolic acidosis E87.2 Pneumothorax J93.9 Pneumomediastinum J98.2 Diarrhea R19.7
[2020-10-30] MEDS: metroNIDAZOLE 500 MG/100 ML BAG IV SCH ×2 (10:37→16:11)
--- NOTE | 2020-10-30 12:15 | Nephrology Progress Note ---
Date of Service October 30, 2020 Assessment & Plan (1) Acute kidney injury: Plan: Baseline creatinine <1 mg/dL. LENNOX c/w ATN. No signs of renal recovery; remains relatively anuric. Start HD 10/15. Femoral dialysis catheter functioning well but will need permcath. Vascular consult tomorrow for TDC. Volume status and electrolytes acceptable. Hold HD today. Document I/O's. Repeat metabolic profile tomorrow AM. Medications currently appropriately dosed for kidney dysfunction. (2) Anemia: Plan: 1 u PRBC transfusion support provided 10/24. Hgb stable. (3) Pneumonia due to 2019 novel coronavirus: Plan: Received Toclizumab 10/13/20. Completed Dexamethasone therapy. Remdesivir held due to LENNOX, elevated LFT's. CT demonstrating post-fibrotic changes. Completed antibiotic therapy for possible bacterial superinfection. Admission and Anticipated Discharge Date Admission Date: October 10, 2020 Subjective No acute events overnight. Levophed being weaned off. No fevers or chills. Breathing reasonably comfortably. Tolerated HD yesterday without complications. Net UF 800 ml. Review of Systems Review of Systems: All systems reviewed & are unremarkable except as noted in HPI & below Physical Exam Constitutional: + ill appearing; no acute distress Eyes: no scleral abnormality and no corneal abnormality ENMT: Mouth: + dry oral mucous membranes; no oral mucosal abnormality NGT Neck: normal visual inspection and trachea midline Respiratory: no respiratory distress Auscultation: + diminished lung sounds and + rales Cardiovascular: Rate/Rhythm: regular rate Heart Sounds: normal S1 and normal S2 Extremities: no edema Musculoskeletal: Extremities: no cyanosis and no clubbing Skin: + turgor decreased; no lesions Neurologic: Motor/Sensory: no tremor and no asterixis Psychiatric: Orientation: alert and oriented x 3 Results & Data ([facility]) Vital Signs (Past 12 Hours) Vital Signs Temp Pulse Resp BP Pulse Ox 10/30/20 09:39 37.3 C 88 12 113/56 L 94 10/30/20 08:39 37.3 C 96 H 15 129/49 L 96 10/30/20 08:23 37.3 C 104 H 23 114/56 L 91 10/30/20 07:39 37.4 C 100 H 16 117/73 93 Laboratory Results Laboratory Results - last 24 hr 10/29/20 10/29/20 10/30/20 17:24 23:56 05:03 WBC 19.84 H RBC 3.98 L Hgb 11.2 L Hct 33.9 L MCV 85.2 MCH 28.1 MCHC 33.0 RDW Std Deviation 54.7 H RDW Coeff of Roxanna 18.4 H Plt Count 327 MPV 10.9 H Immature Gran % (Auto) 0.5 Neut % (Auto) 89.0 Lymph % (Auto) 3.3 [place] % (Auto) 6.7 Eos % (Auto) 0.4 Baso % (Auto) 0.1 Neut # (Auto) 17.68 H Lymph # (Auto) 0.66 L [place] # (Auto) 1.33 H Eos # (Auto) 0.07 Baso # (Auto) 0.01 Immature Gran # (Auto) 0.09 H Sodium Potassium Chloride Carbon Dioxide Anion Gap BUN Creatinine Est Cr Clr Drug Dosing Est GFR ( Amer) Est GFR (Non-Af Amer) BUN/Creatinine Ratio Glucose POC Glucose 170 H 148 H Calcium Phosphorus Magnesium Stl C. diff Tox B Gene 10/30/20 10/30/20 10/30/20 05:03 07:35 08:30 WBC RBC Hgb Hct MCV MCH MCHC RDW Std Deviation RDW Coeff of Roxanna Plt Count MPV Immature Gran % (Auto) Neut % (Auto) Lymph % (Auto) [place] % (Auto) Eos % (Auto) Baso % (Auto) Neut # (Auto) Lymph # (Auto) [place] # (Auto) Eos # (Auto) Baso # (Auto) Immature Gran # (Auto) Sodium 134 L Potassium 4.1 Chloride 103 Carbon Dioxide 23 Anion Gap 8.0 BUN 59 H Creatinine 3.37 H D Est Cr Clr Drug Dosing 11.3 Est GFR ( Amer) 14.9 Est GFR (Non-Af Amer) 12.9 BUN/Creatinine Ratio 17.4 Glucose 149 H POC Glucose 180 H Calcium 8.7 Phosphorus 3.1 D Magnesium 2.2 Stl C. diff Tox B Gene Negative Cdiff Gene PG Care Time/CCT Total # of Minutes Spent Total Time Spent with Patient: Total time spent is greater than 50% in coordination of care (as documented) at patient's floor/unit and/or counseling patient: Coding Level of Care Code 90186 Subseq Hosp Care Lvl 3 Diagnoses Acute kidney injury N17.9 Anemia D64.9 Pneumonia due to 2019 novel coronavirus U07.1; J12.82
--- NOTE | 2020-10-30 12:48 | Gastrointestinal Consultation ---
Date of Consultation October 30, 2020 Assessment & Plan (1) Vocal cord paralysis: (2) Diarrhea: (3) Malnutrition: with pneumomediastinum and covid pneumonia during this hospitalization, now appears to be off of covid isolation. Regarding the diarrhea, could be malabsorptive in nature given the chronicity. Regarding possible PEG tube placement, could consider it after some medical optimization, on 8L O2 currently and with pneumomediastinum this hospitalization and recovering from pneumonia. Recs: -- start cholestyramine BID for diarrhea -- can consider PEG tube perhaps later this hospitalization after more medically optimized/once respiratory status is more improved. -- continue NG tube feeds for now Thank you for allowing me to participate in the care of this patient History of Present Illness Reason for Consultation: PEG placement, chronic diarrhea Attending Physician: Parminder Mcintosh, History of Present Illness 75-year-old female here with covid pneumonia. Her hospital course includes delirium, intubation, ARDS, and renal failure. GI consulted now for possible PEG placement as she has vocal cord paralaysis. She is no longer on covid isolation it appears. Currently on NG tube feeds. She also has been having ongoing chronic diarrhea, this was worked up by us previously, negative colonoscopy and biopsies in 2019. labs reviewed, VSS Allergies Allergy/AdvReac Type Severity Reaction Status Date / Time Sulfa (Sulfonamide Allergy Mild itchy and Verified 10/10/20 20:08 Antibiotics) feeling drained Home Medications Medication Instructions Recorded Confirmed Type Glucosamine Chondroitin PLUS 200 mcg PO QDL 06/16/18 10/10/20 History acetaminophen 325 mg tablet 325 - 650 mg PO Q6H PRN 06/16/18 10/10/20 History (Tylenol) alendronate 70 mg tablet (Fosamax) 1 tab PO WK 06/16/18 10/10/20 History ascorbic acid (vitamin C) 500 mg 500 mg PO QDL 06/16/18 10/10/20 History tablet (Vitamin C) aspirin 81 mg tablet,delayed 81 mg PO QDL 06/16/18 10/10/20 History release atorvastatin 10 mg tablet 10 mg PO HS 06/16/18 10/10/20 History biotin 1 mg tablet 1 mg PO QAM 06/16/18 10/10/20 History calcium carbonate 600 mg (1,500 2 tab PO BID 04/08/19 08/02/21 History mg)-vitamin D3 400 unit tablet (Calcium 600 + D(3)) ibuprofen 200 mg tablet 400 mg PO QAM 06/16/18 10/10/20 History lutein 20 mg tablet 20 mg PO QDL 06/16/18 10/10/20 History magnesium oxide 250 mg PO QDL 06/16/18 10/10/20 History omega 3 350 mg-dha 235 mg-epa 90 3 cap PO QAM 06/16/18 10/10/20 History mg-fish oil 597 mg capsule,delay rel (Arvin-3) pediatric multivit no.43 with iron 1 tab PO QAM 06/16/18 10/10/20 History fumarate 18 mg iron chewable tablet (Flintstones Complete (iron)) vitamin E 400 unit capsule 400 unit PO QDL 06/16/18 10/10/20 History escitalopram oxalate 20 mg tablet 20 mg PO DAILY 10/10/20 10/10/20 History Patient History Medical History Anxiety Anxiety Diarrhea Hyperlipidemia Palliative care encounter Pneumomediastinum Surgical History History of appendectomy with right salpingo-oophorectomy History of colonoscopy History of esophagogastroduodenoscopy (EGD) History of right salpingo-oophorectomy History of umbilical hernia repair had left tubal ligation at same time Status post tubal ligation left with hernia repair Family History Other No family history of adverse response to anesthesia Social History Smoking Status: Former smoker Second Hand Exposure: No; Hx Alcohol Use: Yes Alcohol type: wine Hx Substance Use: No Preferred Language: Ghanaian Communication Ability: Effective Ice Puller Required: No Beliefs That Will Affect Care: None marital status: Current Living Situation: Spouse Feels Safe at Home: Yes Assistive Devices: Oxygen - Continuous Review of Systems Constitutional: no fever, no chills and no weight loss Eyes: as per Subjective / HPI Ear, Nose, Mouth, Throat: as per Subjective / HPI Respiratory: no dyspnea and no dyspnea on exertion Cardiovascular: no chest pain and no palpitations Gastrointestinal: as per Subjective / HPI Musculoskeletal: no joint pain and no swelling Integumentary: no rash and no lesions Neurologic: no numbness and no paresthesia Psychiatric: no depression and no anxiety Endocrine: no fatigue Hematologic / Lymphatic: no easy bleeding and no easy bruising Physical Exam Constitutional: WD/WN, vitals as above Eyes: EOM intact bilaterally Neck: normal visual inspection Respiratory: normal respiratory effort, lungs clear to auscultation Cardiovascular: RRR, no murmur, no edema Gastrointestinal (Abdomen): Inspection/Auscultation: abdomen normal to inspection; abdomen not distended Percussion/Palpation: abdomen soft; abdomen nontender and no hepatosplenomegaly Musculoskeletal: Extremities: no cyanosis Gait: normal gait Skin: no rashes, warm and dry Neurologic: moves all extremities Psychiatric: A+Ox3, euthymic affect Results & Data ([facility]) Vital Signs (Past 12 Hours) Vital Signs Temp Pulse Resp BP Pulse Ox 10/30/20 09:39 37.3 C 88 12 113/56 L 94 10/30/20 08:39 37.3 C 96 H 15 129/49 L 96 10/30/20 08:23 37.3 C 104 H 23 114/56 L 91 10/30/20 07:39 37.4 C 100 H 16 117/73 93 PG Care Time/CCT Total # of Minutes Spent Total Time Spent with Patient: Total time spent is greater than 50% in coordination of care (as documented) at patient's floor/unit and/or counseling patient: Coding Level of Care Code 58904 Initial Inpt Care Lvl 3 Diagnoses Vocal cord paralysis J38.00 Diarrhea R19.7 Malnutrition E46
[2020-10-30] MEDS: ASPIRIN 81 MG CHEW NG SCH (13:03)
[2020-10-30] MEDS: NOREPINEPHRINE/D5W 16 MG/500 ML BAG IV SCH (13:04)
[2020-10-30] MEDS: NOVASOURCE RENAL 2.0 CAL 1000ML BAG NG SCH (13:04)
--- NOTE | 2020-10-30 15:14 | Ears,Nose,Throat Progress Note ---
Date of Service October 30, 2020 Assessment & Plan (1) Hoarseness of voice: Plan: Still hoarse, not breathy. Short of breath with any exertion requiring 8 L of O2. Most ENT literature still advise to negative Covid tests prior to aerosolizing procedure. Hold on fiberoptic laryngoscopy for now. (2) Pneumonia due to 2019 novel coronavirus: (3) Bacterial pneumonia: (4) Severe sepsis: (5) Acute respiratory failure with hypoxemia: Admission and Anticipated Discharge Date Admission Date: October 10, 2020 Subjective Continues to have difficulty talking, low-volume voice, difficulty breathing with shortness of breath with any exertion requiring 8 L of oxygen. Physical Exam Constitutional: WD/WN, vitals as above + acute distress (Needs 8 liters of oxygen) and + ill appearing Eyes: PERRL, conjunctivae normal, anicteric sclerae ENMT: external ear and nose normal, oropharynx normal Results & Data ([facility]) Vital Signs (Past 12 Hours) Vital Signs Temp Pulse Resp BP Pulse Ox 10/30/20 09:39 37.3 C 88 12 113/56 L 94 10/30/20 08:39 37.3 C 96 H 15 129/49 L 96 10/30/20 08:23 37.3 C 104 H 23 114/56 L 91 10/30/20 07:39 37.4 C 100 H 16 117/73 93
--- NOTE | 2020-10-30 15:34 | Hospitalist Progress Note ---
Date of Service October 30, 2020 Assessment & Plan (1) Acute respiratory failure with hypoxemia: Plan: Acute respiratory failure with hypoxemia 2/2 Covid pneumonia complicated by renal failure - On extended Decadron protocol, currently on 10mg dose, last dose is 10/30, today Date of intubation: 10/16/2020 - extubated 10/25/20, stable on wall high flow, 6L, oxygen requirements improving Patient completed prior 5-day course of azithromycin/Rocephin for superimposed infection, no additional antibiotics indicated at this time Remdesivir - first dose given on 10/10. Received dose #2 on 10/11. - Due to development of LENNOX and transaminitis the remdesivir was stopped after 2nd dose. -s/p Tocilizumab - 10/13/20. -s/p full 5-day course of rocephin/zithromax. off of negative pressure isolation, remains in ICU due to complexity of care, needing Levophed intermittently, especially with HD (2) Severe sepsis: Plan: -2nd to COVID-19 pneumonia. -off of Levophed today but might need again tomorrow with HD -Continue supportive care. (3) Acute kidney injury: Plan: -ATN due to COVID-19 (and/or remdesivir) with resulting severe acute renal failure. -Temporary HD catheter placed 10/15. - still getting HD daily or every other day to help with fluid balance Cr is 3.37 today after HD yesterday, no HD planned for today Dr. Alston has been following Daily BMP -Appreciate nephrology assistance will need tunneled HD catheter placed as she is not showing signs of recovery has femoral catheter right now (4) Pneumonia due to 2019 novel coronavirus: Plan: - completed treatment (5) Bacterial pneumonia: Plan: s/p ceftriaxone + azithromycin x 5 days earlier this stay. (6) Hypotension: Plan: 2nd to severe sepsis, COVID-19, medications (propofol), etc. Continue levophed PRN, weaned off today but anticipate she will need with HD tomorrow, continue Midodrine 5mg TID (7) Elevated troponin: Plan: -Peak trop 0.154. -2nd to myocardial demand ischemia. (8) Elevated d-dimer: Plan: -4890 on admission (10/10/20). -LE dopplers negative for DVT b/l. -Unable to perform CT to r/o PE due to LENNOX. (9) Elevated liver enzymes: Plan: -transaminitis 2nd to COVID-19. -ast/alt normalized (10) Fecal occult blood test positive: Plan: -Melanic stools on second day of admission. -Cont PPI for GI prophylaxis. - transfused one unit PRBC on 10/24, Hb has been stable every since, 11 today (11) Hyponatremia: Plan: -Mild, ongoing, 2nd LENNOX/ARF. -Daily bmp. (12) Pneumothorax: Plan: Chest tube placed by critical care team removed 10/26, no residual PTX Plan: -appreciate ICU and palliative care assistance -family meeting with palliative took place on 10/19 -- patient made DNR, no transfer to tertiary care- discussed with Dr. Knowles today, he thinks she would be LTACH candidate, will need HD, transiently needing Levophed, will likely have PEG tube and tube feeds spoke with patient about this option, she agrees with that option Admission and Anticipated Discharge Date Admission Date: October 10, 2020 Subjective patient comfortable today, no acute issues off of Levophed for time being no HD today, plan for it tomorrow discussed with Dr. Knowles, she is probably and LTACH candidate she will be needing HD, likely won't be able to swallow and will need PEG tube she continues to have diarrhea, C diff negative he consulted GI to evaluate for PEG but also give input on diarrhea Review of Systems Review of Systems: All systems reviewed & are unremarkable except as noted in Subjective Constitutional: + fatigue and + weakness; no fever Respiratory: no cough and no dyspnea Cardiovascular: no chest pain Gastrointestinal: + dysphagia and + diarrhea/loose stools; no abdominal pain, no nausea, no vomiting and no constipation Physical Exam Constitutional: well developed, + frail appearing and comfortable; no acute distress Neck: trachea midline, no thyromegaly Respiratory: no respiratory distress and no labored breathing Auscultation: no crackles, no rales and no wheezes Cardiovascular: RRR, no murmur, no edema Gastrointestinal (Abdomen): normal bowel sounds, soft, nontender, no hepatosplenomegaly Skin: no rashes, warm and dry Neurologic: normal touch/pain/proprioception, CN's II-XI intact bilaterally, moves all extremities and awake; no focal motor deficits Speech / Cognition: + abnormal speech (hoarse voice) Psychiatric: Orientation: alert, oriented x 3 and cooperative Results & Data Results & Data ([facility]) Vital Signs (Past 12 Hours) Vital Signs Temp Pulse Resp BP Pulse Ox 10/30/20 09:39 37.3 C 88 12 113/56 L 94 10/30/20 08:39 37.3 C 96 H 15 129/49 L 96 10/30/20 08:23 37.3 C 104 H 23 114/56 L 91 10/30/20 07:39 37.4 C 100 H 16 117/73 93 Laboratory Results Laboratory Results - last 24 hr 10/29/20 10/29/20 10/30/20 17:24 23:56 05:03 WBC 19.84 H RBC 3.98 L Hgb 11.2 L Hct 33.9 L MCV 85.2 MCH 28.1 MCHC 33.0 RDW Std Deviation 54.7 H RDW Coeff of Roxanna 18.4 H Plt Count 327 MPV 10.9 H Immature Gran % (Auto) 0.5 Neut % (Auto) 89.0 Lymph % (Auto) 3.3 Hamilton % (Auto) 6.7 Eos % (Auto) 0.4 Baso % (Auto) 0.1 Neut # (Auto) 17.68 H Lymph # (Auto) 0.66 L Hamilton # (Auto) 1.33 H Eos # (Auto) 0.07 Baso # (Auto) 0.01 Immature Gran # (Auto) 0.09 H Sodium Potassium Chloride Carbon Dioxide Anion Gap BUN Creatinine Est Cr Clr Drug Dosing Est GFR ( Amer) Est GFR (Non-Af Amer) BUN/Creatinine Ratio Glucose POC Glucose 170 H 148 H Calcium Phosphorus Magnesium Stl C. diff Tox B Gene 10/30/20 10/30/20 10/30/20 05:03 07:35 08:30 WBC RBC Hgb Hct MCV MCH MCHC RDW Std Deviation RDW Coeff of Roxanna Plt Count MPV Immature Gran % (Auto) Neut % (Auto) Lymph % (Auto) Hamilton % (Auto) Eos % (Auto) Baso % (Auto) Neut # (Auto) Lymph # (Auto) Hamilton # (Auto) Eos # (Auto) Baso # (Auto) Immature Gran # (Auto) Sodium 134 L Potassium 4.1 Chloride 103 Carbon Dioxide 23 Anion Gap 8.0 BUN 59 H Creatinine 3.37 H D Est Cr Clr Drug Dosing 11.3 Est GFR ( Amer) 14.9 Est GFR (Non-Af Amer) 12.9 BUN/Creatinine Ratio 17.4 Glucose 149 H POC Glucose 180 H Calcium 8.7 Phosphorus 3.1 D Magnesium 2.2 Stl C. diff Tox B Gene Negative Cdiff Gene 10/30/20 12:57 WBC RBC Hgb Hct MCV MCH MCHC RDW Std Deviation RDW Coeff of Roxanna Plt Count MPV Immature Gran % (Auto) Neut % (Auto) Lymph % (Auto) Hamilton % (Auto) Eos % (Auto) Baso % (Auto) Neut # (Auto) Lymph # (Auto) Hamilton # (Auto) Eos # (Auto) Baso # (Auto) Immature Gran # (Auto) Sodium Potassium Chloride Carbon Dioxide Anion Gap BUN Creatinine Est Cr Clr Drug Dosing Est GFR ( Amer) Est GFR (Non-Af Amer) BUN/Creatinine Ratio Glucose POC Glucose 163 H Calcium Phosphorus Magnesium Stl C. diff Tox B Gene Medications Administered Current Inpatient Medications Aspirin (Aspirin 81 Mg Chew) 81 mg NG QDL CHELSEY Stop: 11/16/20 11:29 Last Admin: 10/30/20 13:03 Dose: 81 mg Documented by: Clonazepam (Clonazepam 0.25 Mg Tab) 0.25 mg PO DAILY PRN PRN Reason: Agitation Stop: 11/26/20 08:59 Dextrose (Dextrose 50% 50 Ml Syringe) 25 - 50 ml IV UD PRN; Protocol PRN Reason: Hypoglycemia Protocol Stop: 11/12/20 08:44 Enteral Nutritional Formula (Novasource Renal 2.0 Moustapha 1000ml Bag) 1,000 ml NG CONT CHELSEY; Protocol Stop: 11/27/20 10:18 Last Admin: 10/30/20 13:04 Dose: 1,000 ml Documented by: Escitalopram Oxalate (Escitalopram Oxalate Oral Soln 20 Mg/20 Ml Udp) 20 mg PO QAM CHELSEY Stop: 11/16/20 10:59 Last Admin: 10/30/20 07:39 Dose: 20 mg Documented by: Glucagon (Glucagon For Inj 1 Mg Vial) 1 mg SQ UD PRN; Protocol PRN Reason: Hypoglycemia Protocol Stop: 11/12/20 08:44 Glucose (Glucose 40% Gel 15 Gm Tube) 15 - 30 gm PO UD PRN; Protocol PRN Reason: Hypoglycemia Protocol Stop: 11/12/20 08:44 Glucose (Glucose 10 Tabs/Tube) 4 - 8 tabs PO UD PRN; Protocol PRN Reason: Hypoglycemia Protocol Stop: 11/12/20 08:44 Heparin Sodium (Porcine) (Heparin Sod 5,000 Unit/0.5 Ml Vial) 5,000 units SQ Q12 CHELSEY Stop: 11/24/20 11:14 Last Admin: 10/30/20 07:40 Dose: 5,000 units Documented by: Heparin Sodium (Porcine) (Heparin Sod (Porcine) 1000 Unit/Ml) 2,000 units IV NOW ONE Stop: 10/31/20 07:01 Norepinephrine Bitartrate (Levophed/D5w) 16 mg in 500 mls @ 0 mls/hr IV .Q0M CHELSEY; Protocol Stop: 11/20/20 11:59 Last Admin: 10/30/20 13:04 Dose: Not Given Documented by: Pantoprazole Sodium 40 mg/ (Syringe) 10 mls @ 5 mls/min IV BID CHELSEY Stop: 11/23/20 20:59 Last Admin: 10/30/20 07:39 Dose: 5 mls/min Documented by: Metronidazole (Flagyl) 500 mg in 100 mls @ 100 mls/hr IV Q8H CHELSEY Stop: 11/09/20 08:59 Last Infusion: 10/30/20 12:00 Dose: Infused Documented by: Insulin Aspart (Insulin Aspart 100 Units/Ml 3 Ml Pen) 0 units SC Q6 CHELSEY Stop: 10/31/20 23:59 Last Admin: 10/30/20 13:04 Dose: 1 units Documented by: Midodrine (Midodrine Hcl 2.5 Mg Tab) 5 mg PO TID@0800,1200,1700 CHELSEY Stop: 11/25/20 16:59 Last Admin: 10/30/20 13:03 Dose: 5 mg Documented by: Miscellaneous (Carbohydrates For Hypoglycemia ) 15 - 30 gm PO UD PRN PRN Reason: Hypoglycemia Treatment Stop: 11/12/20 08:44 Oxycodone HCl (Oxycodone Hcl Ir 5 Mg Tab (Immediate Release)) 5 mg NG Q6 PRN PRN Reason: pain Stop: 11/06/20 11:59 Sterile Water (Tube Feeding Water Flush) 30 ml NG Q4H CHELSEY Stop: 11/27/20 10:19 Last Admin: 10/30/20 15:25 Dose: 30 ml Documented by: PG Care Time/CCT Total # of Minutes Spent Total Time Spent with Patient: Total time spent is greater than 50% in coordination of care (as documented) at patient's floor/unit and/or counseling patient: Coding Level of Care Code 35111 Subseq Hosp Care Lvl 2 Diagnoses Acute respiratory failure with hypoxemia J96.01 Severe sepsis A41.9; R65.20 Acute kidney injury N17.9 Pneumonia due to 2019 novel coronavirus U07.1; J12.82 Bacterial pneumonia J15.9 Hypotension I95.9 Elevated troponin R77.8 Elevated d-dimer R79.89 Elevated liver enzymes R74.8 Fecal occult blood test positive R19.5 Hyponatremia E87.1 Pneumothorax J93.9
[2020-10-31] MEDS: INSULIN ASPART 100 UNITS/ML 3 ML PEN SC SCH ×4 (00:18→16:49)
[2020-10-31] MEDS: metroNIDAZOLE 500 MG/100 ML BAG IV SCH ×2 (01:31→08:34)
[2020-10-31] MEDS: TUBE FEEDING WATER FLUSH NG SCH ×6 (04:03→20:07)
[2020-10-31 05:27] LABS: Basophils # (auto) 0.01 K/uL (0-0.2); Basophils % (auto) 0.1 %; Eosinophils # (auto) 0.02 K/uL (0-0.5); Eosinophils % (auto) 0.1 %; Hematocrit (blood only) 29.7 % (37-47); Hemoglobin 9.7 g/dL (12.0-16.0); Immature Granulocytes # (auto) 0.06 K/uL (0.00-0.02); Immature Granulocytes % (auto) 0.4 %; Lymphocytes # (auto) 0.71 K/uL (1.2-3.4); Mean Corpuscular Hemoglobin 28.2 pg (25-34); Mean Corpuscular Hgb Conc 32.7 g/dL (32-36); Mean Corpuscular Volume 86.3 fL (80-100); Mean Platelet Volume 10.7 fL (7.4-10.4); Monocytes # (auto) 1.17 K/uL (0.11-0.59); Monocytes % (auto) 8.2 %; Neutrophils # (auto) 12.25 K/uL (1.4-6.5); Neutrophils % (auto) 86.2 %; Platelet Count 316 K/uL (130-400); RDW Coefficient of Variation 18.1 % (11.5-14.5); RDW Standard Deviation 55.3 fL (36.4-46.3); Red Blood Count 3.44 M/uL (4.2-5.4); White Blood Count 14.22 K/uL (4.8-10.8)
[2020-10-31 06:06] LABS: BUN Creatinine Ratio 20.8 (10-20); Calcium 8.8 mg/dl (8.5-10.1); Creatinine Clr Calc Pharmacy 7.8 ml/min; Est GFR (African American) 9.5 ml/min; Est GFR (Non-African American) 8.2 ml/min; Magnesium 2.4 mg/dl (1.8-2.4); Phosphorus 3.7 mg/dl (2.5-4.9); Potassium 5.1 mmol/L (3.5-5.1)
[2020-10-31] MEDS ORDERED: HEPARIN SOD (PORCINE) 1000 UNIT/ML IV ONE (07:00)
--- NOTE | 2020-10-31 07:26 | Hospitalist Progress Note ---
Date of Service October 31, 2020 Assessment & Plan (1) Acute respiratory failure with hypoxemia: Plan: Acute respiratory failure with hypoxemia 2/2 Covid pneumonia complicated by renal failure - On extended Decadron protocol, currently on 10mg dose, last dose is 10/30 Date of intubation: 10/16/2020 - extubated 10/25/20, stable on wall high flow, 6L, oxygen requirements improving Patient completed prior 5-day course of azithromycin/Rocephin for superimposed infection, no additional antibiotics at this time Remdesivir - first dose given on 10/10. Received dose #2 on 10/11. - Due to development of LENNOX and transaminitis the remdesivir was stopped after 2nd dose. -s/p Tocilizumab - 10/13/20. -s/p full 5-day course of rocephin/zithromax. off of negative pressure isolation, remains in ICU due to complexity of care, needing Levophed intermittently, especially with HD (2) Severe sepsis: Plan: -2nd to COVID-19 pneumonia. -Intermittent need Levophed during dialysis -Continue supportive care. (3) Acute kidney injury: Plan: -ATN due to COVID-19 (and/or remdesivir) with resulting severe acute renal failure. -Temporary HD catheter placed 10/15. -tunneled HD catheter placed 10/31/2020 as she is not showing signs of recovery Dr. Alston has been following, Appreciate nephrology assistance (4) Pneumonia due to 2019 novel coronavirus: Plan: - completed treatment (5) Bacterial pneumonia: Plan: s/p ceftriaxone + azithromycin x 5 days earlier this stay. (6) Hypotension: Plan: 2nd to severe sepsis, COVID-19, medications (propofol), etc. Continue levophed PRN, weaned off today but anticipate she will need with HD tomorrow, Midodrine 5mg TID (7) Elevated troponin: Plan: -Peak trop 0.154. -2nd to myocardial demand ischemia. (8) Elevated d-dimer: Plan: -4890 on admission (10/10/20). -LE dopplers negative for DVT b/l. -Did not initially perform CT angiogram due to renal failure (9) Elevated liver enzymes: Plan: -transaminitis 2nd to COVID-19. -ast/alt normalized (10) Fecal occult blood test positive: Plan: -Melanic stools on second day of admission. -Cont PPI for GI prophylaxis. - transfused one unit PRBC on 10/24, (11) Hyponatremia: Plan: -resolved (12) Pneumothorax: Plan: Chest tube placed by critical care team removed 10/26, no residual PTX Plan: -appreciate ICU and palliative care assistance -family meeting with palliative took place on 10/19 -- patient made DNR, no transfer to tertiary care- ICU serivce thinks pt would be LTACH candidate, will need HD, transiently needing Levophed, will likely have PEG tube and tube feeds spoke with patient about this option, she agrees with that option Admission and Anticipated Discharge Date Admission Date: October 10, 2020 Subjective pt was seen post dialysis cath placement she is sleepy but is not in much pain Review of Systems Review of Systems: Mild distress and fatigue no headache, no visual changes no speech or swallowing issues minor chest pain at the cath insertion site mild shortness of breath, cough or wheezes no abdominal pain, nausea or vomiting, diarrhea or constipation no dysuria, hematuria or frequency no focal joint pain or swelling no back pain, CVA tenderness or radicular pain no bruising, bleeding or rashes no focal signs of weakness or numbness or altered sensation no complaints of anxiety or depression.. Physical Exam Physical Exam: The patient appeared well nourished and normally developed. Vital signs as documented. Head exam is normocephalic atraumatic Neck is with JVD, thyromegaly, or carotid bruits. Lungs coarse bilaterally Cardiac exam, Rhythm is regular.. No murmurs, rubs or gallops. Abdominal exam reveals normal bowel sounds, soft non tender, no masses Extremities are nonedematous and both pedal pulses are present Neurologic exam is alert and oriented, extremely fatigued no focal loss of strength or sensation Skin is without bruises or rashes Psychologically is without concerns for anxiety or depression Results & Data Results & Data ([facility]) Vital Signs (Past 12 Hours) Vital Signs Temp Pulse Resp BP Pulse Ox 10/31/20 05:05 99.0 F 80 15 120/54 L 94 10/31/20 04:05 99.1 F 83 12 119/59 L 95 10/31/20 03:05 99.1 F 81 10 L 133/66 95 10/31/20 02:05 99.1 F 81 10 L 135/68 95 10/31/20 01:05 99.0 F 81 11 L 130/66 94 10/31/20 00:05 99.0 F 83 14 135/60 93 10/30/20 23:05 99.0 F 76 12 129/69 96 10/30/20 22:05 99.0 F 74 16 129/62 95 10/30/20 21:00 99.5 F 90 24 10/30/20 20:06 99.5 F 86 13 129/55 L 94 PG Care Time/CCT Total # of Minutes Spent Total Time Spent with Patient: Total time spent is greater than 50% in coordination of care (as documented) at patient's floor/unit and/or counseling patient: Coding Level of Care Code 70444 Subseq Hosp Care Lvl 2 Diagnoses Acute respiratory failure with hypoxemia J96.01 Severe sepsis A41.9; R65.20 Acute kidney injury N17.9 Pneumonia due to 2019 novel coronavirus U07.1; J12.82 Bacterial pneumonia J15.9 Hypotension I95.9 Elevated troponin R77.8 Elevated d-dimer R79.89 Elevated liver enzymes R74.8 Fecal occult blood test positive R19.5 Hyponatremia E87.1 Pneumothorax J93.9
--- NOTE | 2020-10-31 07:51 | Consultation ---
Date of Consultation October 31, 2020 Assessment & Plan (1) Acute kidney injury: Patient for insertion of a permcath today. We will remove the temporary femoral line after the permcath inserted. I have discussed the risks options and benefits of the procedure with the patient. The patient understands the risks options and benefits and agrees to the procedure. History of Present Illness Reason for Consultation: Acute kidney injury Attending Physician: Arnaldo Castillo MD History of Present Illness This is a 75yo female who was covid + admitted with sepsis and suffered acute kidney injury. She has undergone dialysis through a temporary catheter. She will need a permcath and removal of her temporary catheter. Allergies Allergy/AdvReac Type Severity Reaction Status Date / Time Sulfa (Sulfonamide Allergy Mild itchy and Verified 10/10/20 20:08 Antibiotics) feeling drained Home Medications Medication Instructions Recorded Confirmed Type Glucosamine Chondroitin PLUS 200 mcg PO QDL 06/16/18 10/10/20 History acetaminophen 325 mg tablet 325 - 650 mg PO Q6H PRN 06/16/18 10/10/20 History (Tylenol) alendronate 70 mg tablet (Fosamax) 1 tab PO WK 06/16/18 10/10/20 History ascorbic acid (vitamin C) 500 mg 500 mg PO QDL 06/16/18 10/10/20 History tablet (Vitamin C) aspirin 81 mg tablet,delayed 81 mg PO QDL 06/16/18 10/10/20 History release atorvastatin 10 mg tablet 10 mg PO HS 06/16/18 10/10/20 History biotin 1 mg tablet 1 mg PO QAM 06/16/18 10/10/20 History calcium carbonate 600 mg (1,500 2 tab PO BID 06/16/18 10/10/20 History mg)-vitamin D3 400 unit tablet (Calcium 600 + D(3)) ibuprofen 200 mg tablet 400 mg PO QAM 06/16/18 10/10/20 History lutein 20 mg tablet 20 mg PO QDL 06/16/18 10/10/20 History magnesium oxide 250 mg PO QDL 06/16/18 10/10/20 History omega 3 350 mg-dha 235 mg-epa 90 3 cap PO QAM 06/16/18 10/10/20 History mg-fish oil 597 mg capsule,delay rel ([place]-3) pediatric multivit no.43 with iron 1 tab PO QAM 06/16/18 10/10/20 History fumarate 18 mg iron chewable tablet (Flintstones Complete (iron)) vitamin E 400 unit capsule 400 unit PO QDL 06/16/18 10/10/20 History escitalopram oxalate 20 mg tablet 20 mg PO DAILY 10/10/20 10/10/20 History Patient History Medical History Anxiety Anxiety Diarrhea Hyperlipidemia Palliative care encounter Pneumomediastinum Surgical History History of appendectomy with right salpingo-oophorectomy History of colonoscopy History of esophagogastroduodenoscopy (EGD) History of right salpingo-oophorectomy History of umbilical hernia repair had left tubal ligation at same time Status post tubal ligation left with hernia repair Family History Other No family history of adverse response to anesthesia Social History Smoking Status: Former smoker Second Hand Exposure: No; Hx Alcohol Use: Yes Alcohol type: wine Hx Substance Use: No Preferred Language: Mauritanian Communication Ability: Effective 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: No Beliefs That Will Affect Care: None marital status: Current Living Situation: Spouse Feels Safe at Home: Yes Assistive Devices: Oxygen - Continuous Review of Systems Constitutional: no fever Respiratory: no dyspnea and no dyspnea on exertion Cardiovascular: no chest pain Gastrointestinal: no abdominal pain Neurologic: no problem reported Psychiatric: no problem reported Physical Exam Constitutional: WD/WN, vitals as above Respiratory: normal respiratory effort, lungs clear to auscultation Cardiovascular: RRR, no murmur, no edema Gastrointestinal (Abdomen): normal bowel sounds, soft, nontender, no hepatosplenomegaly Neurologic: CN's II-XI intact bilaterally and moves all extremities Psychiatric: Orientation: alert and oriented x 3 Results & Data ([facility]) Vital Signs (Past 12 Hours) Vital Signs Temp Pulse Resp BP Pulse Ox 10/31/20 05:05 37.2 C 80 15 120/54 L 94 10/31/20 04:05 37.3 C 83 12 119/59 L 95 10/31/20 03:05 37.3 C 81 10 L 133/66 95 08/23/21 02:05 37.3 C 81 10 L 135/68 95 10/31/20 01:05 37.2 C 81 11 L 130/66 94 10/31/20 00:05 37.2 C 83 14 135/60 93 10/30/20 23:05 37.2 C 76 12 129/69 96 10/30/20 22:05 37.2 C 74 16 129/62 95 10/30/20 21:00 37.5 C 90 24 10/30/20 20:06 37.5 C 86 13 129/55 L 94
[2020-10-31] MEDS: PANTOprazole 40 MG in SYRINGE 0 ML IV SCH (08:34)
[2020-10-31] MEDS ORDERED: LIDOCAINE 1% LOCAL 20 ML VIAL ONE ×2 (08:42→09:43)
[2020-10-31] MEDS ORDERED: HEPARIN SOD (PORCINE) 5,000 UNITS/ML VIAL ONE (08:43)
--- NOTE | 2020-10-31 08:53 | Critical Care Progress Note ---
Date of Service October 31, 2020 Assessment & Plan (1) Pneumonia due to 2019 novel coronavirus: Plan: Zenobia Suero is a 75 yo female with PMHx significant for HTN and anxiety who was admitted on 10/10 with COVID-19 pneumonia. She was transferred to the ICU on 10/11. Required intubation, initiation of vasopressors for shock, ARDS, as well as acute renal failure requiring initiation of hemodialysis. Extubated on 10/25 but remains dialysis-dependent with plans for Permcath placement today. Also has vocal cord paralysis and may ultimately need PEG tube placement. NEURO: CAM-ICU negative. Required extremely high doses of sedatives while intubated and has successfully been weaned from high-dose Narcotics. - continue Clonazepam 0.25 mg daily PRN and Oxycodone 5 mg Q6H PRN (although patient currently not needing them) CARDIO: Hypotension, in context of COVID/ARDS and regular dialysis. No signs of sepsis. Improved with Levophed, which was succesfully weaned on 10/30. Currently still on Midodrine. - Continue Midodrine 5 mg PO TID, goal MAP >65 PULM: Acute hypoxemic respiratory failure due to COVID-19 PNA. S/p high-dose DEXA ARDS. Also had chest tube placed, which was removed on 10/26 with residual pneumomediastinum that will resolve with time. Lastly she has evidence of vocal cord paralysis based on speech therapy evaluation. ENT consulted and did not feel that intervention is required at this time. - Currently has adequate oxygen saturation with high-flow NC at 8L/min; continue as needed to maintain SpO2 90-92% - Continue flutter valve and incentive spirometer. - Patient will need ongoing speech therapy as well as ENT follow-up. ID: Completed 5 days of Azithromycin and Rocephin for signs of superimposed bacterial pneumonia. Also received Tocilizumab. Patient does have ongoing diarrhea although is negative for c. diff on 10/30. Currently afebrile. - discontinue Flagyl RENAL: Likely ATN - multifactorial. Remains anuric and appears to be dialysis- dependent. - trend electrolytes, renal replacement per nephrology - Permcath placement scheduled for today, per vascular surgery - removed urinary Falk catheter today GI: Small bore feeding tube placed at bedside on 10/27. Also has diarrhea as stated above - Continue tube feeds - GI consult placed due to ongoing diarrhea and the potential need for PEG tube placement given that she is NPO due to vocal cord paralysis. - recommend continuing NG tube feeds for now and will hold off on PEG tube, pending improvement in respiratory status ENDOCRINE: - Glycemic control per ICU HEME-ONC: Status post 1 unit packed RBC 10/24/2020. Stable anemia - likely anemia of chronic disease. - trend CBC VTE ppx: Heparin 5000 units SQ Q12H GI ppx: continue Protonix 40mg IV BID Diet: NPO, continue tube feeds CODE STATUS: DNR/DNI DISPO: stable for downgrade out of ICU after Permcath placement and dialysis Thank you for allowing us to be part of this patient's care. Please refer to Dr. Prajapati's documentation for any further recommendations. (2) Acute respiratory failure with hypoxemia: (3) Acute kidney injury: (4) Pneumomediastinum: (5) Diarrhea: Admission and Anticipated Discharge Date Admission Date: October 10, 2020 Supervising Physician Co-Signing Physician Notes Dr. Frias was resident physician during care of patient. I separately evaluated patient for diaz portions of the history and the exam. I was present during the critical portion of medical decision making, and I discussed the case with the resident. I generally agree with the findings and plan. Stable for downgrade after dialysis today. Receiving PermCath placement in operating room at 930 Subjective No acute events overnight. Patient remains on high-flow nasal cannula (currently 8L/min) to maintain adequate sats. This morning the patient does not have acute concerns/complaints. Review of Systems Review of Systems: Denies fever/chills, chest pain, palpitations, SOB, cough, N/V, abdominal pain, rash. Physical Exam Physical Exam: General: NAD. Cooperative. Frail-appearing. HEENT: Atraumatic, normocephalic. Pulm: Diminished lung sounds bilaterally. -wheezes, -rales, -rhonchi. Symmetrical chest rise. No increase work of breathing. No respiratory distress. Cardiac: RRR, -mrg. Radial pulses intact and symmetrical. No LE edema. Abdominal: soft, non-tender, non-distended, BS x 4 Skin: warm, dry, no rash Results & Data Results & Data ([facility]) Vital Signs (Past 12 Hours) Vital Signs Temp Pulse Pulse Pulse Resp BP BP 08/23/21 08:35 37.1 C 87 22 119/59 L 10/31/20 08:00 36.8 C 80 81 20 10/31/20 05:05 37.2 C 80 15 120/54 L 10/31/20 04:05 37.3 C 83 12 119/59 L 10/31/20 03:05 37.3 C 81 10 L 133/66 10/31/20 02:05 37.3 C 81 10 L 135/68 10/31/20 01:05 37.2 C 81 11 L 130/66 10/31/20 00:05 37.2 C 83 14 135/60 10/30/20 23:05 37.2 C 76 12 129/69 10/30/20 22:05 37.2 C 74 16 129/62 10/30/20 21:00 37.5 C 90 24 BP Pulse Ox 10/31/20 08:35 93 10/31/20 08:00 136/78 92 10/31/20 05:05 94 10/31/20 04:05 95 10/31/20 03:05 95 10/31/20 02:05 95 10/31/20 01:05 94 10/31/20 00:05 93 10/30/20 23:05 96 10/30/20 22:05 95 10/30/20 21:00 Resident Activity Tracking Resident Involvement: Resident Care Provided Care Provided: Adult Hospital Medicine
[2020-10-31] MEDS: MIDODRINE HCL 2.5 MG TAB PO SCH ×3 (09:15→16:49)
[2020-10-31] MEDS ORDERED: MIDAZOLAM HCL 1 MG/ML 2ML VIAL ONE (09:29)
[2020-10-31] MEDS ORDERED: fentaNYL citrate 100 MCG/2 ML VIAL ONE (09:29)
--- NOTE | 2020-10-31 09:37 | Pre Anesthesia Assessment ---
Date of Service October 31, 2020 Pre Sedation Assessment Vital Signs Temp Pulse Pulse Pulse Resp BP BP 10/31/20 08:35 37.1 C 87 22 119/59 L 10/31/20 08:00 36.8 C 80 81 20 10/31/20 05:05 37.2 C 80 15 120/54 L 10/31/20 04:05 37.3 C 83 12 119/59 L 10/31/20 03:05 37.3 C 81 10 L 133/66 10/31/20 02:05 37.3 C 81 10 L 135/68 10/31/20 01:05 37.2 C 81 11 L 130/66 10/31/20 00:05 37.2 C 83 14 135/60 10/30/20 23:05 37.2 C 76 12 129/69 10/30/20 22:05 37.2 C 74 16 129/62 10/30/20 21:00 37.5 C 90 24 10/30/20 20:06 37.5 C 86 13 129/55 L 10/30/20 19:05 37.5 C 83 16 121/48 L 10/30/20 15:05 37.7 C H 90 16 106/58 L 10/30/20 14:35 37.6 C H 91 H 22 89/51 L 10/30/20 14:05 37.5 C 94 H 12 109/55 L 10/30/20 13:35 37.5 C 82 9 L 101/50 L 10/30/20 13:05 37.2 C 82 12 104/53 L 10/30/20 12:48 37.5 C 82 16 10/30/20 12:07 37.6 C H 96 H 16 85/53 L 10/30/20 11:39 37.6 C H 93 H 20 125/54 L 10/30/20 10:39 37.5 C 82 11 L 122/58 L 10/30/20 09:39 37.3 C 88 12 113/56 L BP Pulse Ox 10/31/20 08:35 93 10/31/20 08:00 136/78 92 10/31/20 05:05 94 10/31/20 04:05 95 10/31/20 03:05 95 10/31/20 02:05 95 10/31/20 01:05 94 10/31/20 00:05 93 08/22/21 23:05 96 10/30/20 22:05 95 10/30/20 21:00 10/30/20 20:06 94 10/30/20 19:05 91 10/30/20 15:05 91 10/30/20 14:35 90 10/30/20 14:05 94 10/30/20 13:35 95 10/30/20 13:05 93 10/30/20 12:48 91 10/30/20 12:07 93 10/30/20 11:39 89 L 10/30/20 10:39 95 10/30/20 09:39 94 Cardiovascular RRR, no murmur, no edema Respiratory normal respiratory effort, lungs clear to auscultation Pre-Sedation Airway Assessment Smoking Status: Former smoker Hx Sleep Apnea: No Short, Thick Neck: No Thyromental Distance: > or= 3.5 Finger Breadths Oral Cavity: + WNL Mallampati Class: II ASA: ASA3 NPO Status Date of Last Intake of Fluids: 10/31/20 Time of Last Intake of Fluids: 00:00 Last Oral Intake of Fluids Comment: tube feedings held Date of Last Intake of Solid Food: 10/31/20 Time of Last Intake of Solid Foods: 00:00 Procedure Planning Contraindications for Sedation: none Current Medications Reviewed: Yes Notes The planned sedation has been discussed with the patient. Informed Consent was obtained. I have identified the patient, determined the appropriateness of sedation and have assessed the patient immediately prior to the procedure. All medicine(s) and interventions are by my order.
--- NOTE | 2020-10-31 09:41 | Critical Care Progress Note ---
Date of Service October 31, 2020 Assessment & Plan Admission and Anticipated Discharge Date Admission Date: October 10, 2020 Supervising Physician Co-Signing Physician Notes Dr. Frias was resident physician during care of patient. I separately evaluated patient for diaz portions of the history and the exam. I was present during the critical portion of medical decision making, and I discussed the case with the resident. I generally agree with the findings and plan. Stable for downgrade after dialysis today. Receiving PermCath placement in operating room at 930 Results & Data Results & Data ([facility]) Vital Signs (Past 12 Hours) Vital Signs Temp Pulse Pulse Pulse Resp BP BP 10/31/20 09:35 77 22 125/66 10/31/20 08:35 37.1 C 87 22 10/31/20 08:00 36.8 C 80 81 20 10/31/20 05:05 37.2 C 80 15 120/54 L 10/31/20 04:05 37.3 C 83 12 119/59 L 10/31/20 03:05 37.3 C 81 10 L 133/66 10/31/20 02:05 37.3 C 81 10 L 135/68 10/31/20 01:05 37.2 C 81 11 L 130/66 10/31/20 00:05 37.2 C 83 14 135/60 10/30/20 23:05 37.2 C 76 12 129/69 10/30/20 22:05 37.2 C 74 16 129/62 BP BP Pulse Ox 10/31/20 09:35 96 10/31/20 08:35 119/59 L 93 10/31/20 08:00 136/78 92 10/31/20 05:05 94 10/31/20 04:05 95 10/31/20 03:05 95 10/31/20 02:05 95 10/31/20 01:05 94 10/31/20 00:05 93 10/30/20 23:05 96 10/30/20 22:05 95 Coding
--- NOTE | 2020-10-31 10:06 | Operative Report ---
Post Operative Report Pre & Post Diagnosis Operation Date: 10/31/20 08:00 Pre-Op Diagnosis: Acute Kidney Injury Post-Op Diagnosis: Acute Kidney Injury I identified the patient and participated in the time-out.: Yes Procedure Operation Date: 10/31/20 08:00 Actual Procedures p Perm Catheter Placement insertion of Perm Catheter, RIght Internal Jugular Approach, Ultrasound Locilization of Right Internal Jugular Vein, Floroscopy for Positioning and Removal of Temorary Dialysis Catheter - Brad Mcnair MD Surgeon Brad Mcnair MD [employer]ocker none Estimated Blood Loss 3 Findings Consistent with Post-Op Diagnosis Specimens none Anesthesia Type Local Complications none Disposition Accompanied Patient To Recovery: No Disposition: Surgical ICU Indications This is a 75-year-old female who was admitted with respiratory insufficiency being Covid positive. She did subsequently develop acute renal injury necessitating dialysis. This was done through a temporary catheter. She is presently out of isolation and is in need of a permanent access. A PermCath was recommended. I have discussed the risks options and benefits of the procedure with the patient. The patient understands the risks options and benefits and agrees to the procedure. Description of Procedure Patient was taken to the angio suite and placed in the supine position. The right side of the neck and chest wall were prepped and draped in a sterile manner. The patient was identified and a timeout performed. Local anesthesia was then administered to the appropriate areas of the neck and chest wall. Ultrasound was then used to locate the right internal jugular vein. The vein compressed easily, had no filing defects, and was patent. The vein was then punctured under direct ultrasound imaging. A guidewire was then passed centrally under fluoroscopic imaging. A stab wound was then made in the anterior chest wall and a 19 cm permcath was passed from the stab wound on the chest wall to the puncture site on the neck. The puncture site was then dilated till the 14Fr peel away sheath was inserted. The permcath was then inserted through the sheath to a central position in the distal superior vena cava. The peel away sheath was then removed. The catheter was then sutured in place using nylon sutures. The puncture was then closed using a 4-0 Vicryl subcuticular suture. Dermabond was used for a dressing on the puncture site. Both ports aspirated and flushed easily and were then packed with heparin. A sterile dressing was applied to the catheter. The patient left the operation room in satisfactory condition and tolerated the procedure well. All needle and sponge counts were correct at the end of the procedure. I attest to the content of the Intraoperative Record and any orders documented therein. Any exceptions are noted below.
--- NOTE | 2020-10-31 10:18 | Nephrology Progress Note ---
Date of Service October 31, 2020 Assessment & Plan (1) Acute kidney injury: (2) Hypertension: (3) Malnutrition: (4) Anemia: Plan: 75-year-old female admitted with COVID pneumonia, Was intubated for acute respiratory failure.. 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 Received Toclizumab 10/13/20. Completed Dexamethasone therapy. Remdesivir was stopped after 2 doses due to LENNOX, elevated LFT's. completed azithromycin. Respira tory status improved and she was extubated on 10/27/2020. Has been having dialysis For almost last 2 weeks with no sign of renal recovery yet. Planning for tunneled dialysis catheter this morning and removed temporary dialysis catheter. -- Plan for dialysis this afternoon after tunneled dialysis catheter placement while continuing to monitor for renal recovery. -- dose medications for GFR less than 10 Will follow Admission and Anticipated Discharge Date Admission Date: October 10, 2020 Sumeet Varela seen and evaluated in her room this morning. Overall she feels tired but denies any other symptoms. Blood pressure has been acceptable. Continues to be anuric with no sign of renal recovery. Review of Systems Review of Systems: Detailed review of system was otherwise unremarkable. Physical Exam Constitutional: + ill appearing; no acute distress Respiratory: normal respiratory effort, lungs clear to auscultation Cardiovascular: RRR, no murmur, no edema Neurologic: moves all extremities and awake; not confused Psychiatric: A+Ox3, euthymic affect Results & Data ([facility]) Vital Signs (Past 12 Hours) Vital Signs Temp Pulse Pulse Pulse Resp BP BP 10/31/20 10:00 81 20 100/52 L 10/31/20 09:55 86 20 111/53 L 10/31/20 09:50 76 20 97/53 L 10/31/20 09:45 77 22 111/53 L 10/31/20 09:40 77 22 109/59 L 10/31/20 09:35 77 22 125/66 10/31/20 08:35 37.1 C 87 22 10/31/20 08:00 36.8 C 80 81 20 10/31/20 05:05 37.2 C 80 15 120/54 L 10/31/20 04:05 37.3 C 83 12 119/59 L 10/31/20 03:05 37.3 C 81 10 L 133/66 10/31/20 02:05 37.3 C 81 10 L 135/68 10/31/20 01:05 37.2 C 81 11 L 130/66 10/31/20 00:05 37.2 C 83 14 135/60 10/30/20 23:05 37.2 C 76 12 129/69 BP BP Pulse Ox 10/31/20 10:00 90 10/31/20 09:55 88 L 10/31/20 09:50 88 L 10/31/20 09:45 97 10/31/20 09:40 95 10/31/20 09:35 96 10/31/20 08:35 119/59 L 93 10/31/20 08:00 136/78 92 10/31/20 05:05 94 10/31/20 04:05 95 10/31/20 03:05 95 10/31/20 02:05 95 10/31/20 01:05 94 10/31/20 00:05 93 10/30/20 23:05 96 PG Care Time/CCT Total # of Minutes Spent Total Time Spent with Patient: Total time spent is greater than 50% in coordination of care (as documented) at patient's floor/unit and/or counseling patient: Coding Level of Care Code 23738 Subseq Hosp Care Lvl 3 Diagnoses Acute kidney injury N17.9 Hypertension I10 Malnutrition E46 Anemia D64.9
--- NOTE | 2020-10-31 10:24 | Billing Data ---
Date of Service October 31, 2020 Coding Level of Care Code 32030 Subseq Hosp Care Lvl 3
[2020-10-31] MEDS: HEPARIN SOD 5,000 UNIT/0.5 ML VIAL SQ SCH ×2 (10:49→19:55)
[2020-10-31] MEDS: ESCITALOPRAM OXALATE ORAL SOLN 20 MG/20 ML UDP PO SCH (10:55)
[2020-10-31] MEDS: NOVASOURCE RENAL 2.0 CAL 1000ML BAG NG SCH (10:55)
[2020-10-31] MEDS: ASPIRIN 81 MG CHEW NG SCH (11:40)
--- NOTE | 2020-10-31 13:10 | XRay Report ---
XR chest 1V portable HISTORY: Replacement of cores safe feeding tube. COMPARISON: [facility] 10/28/2020. FINDINGS: Interval placement of a feeding tube. The tip terminates below the diaphragm but is not inc luded on this study. Diffuse interstitial thickening and hazy airspace opacities persist. The heart r emains mildly enlarged. Right jugular central venous catheter terminates in the SVC. No pneumothorax. No pleural effusions. IMPRESSION: 1. The feeding tube terminates below the diaphragm. However, the tip is not included on this study. 2. Bilateral airspace opacities/interstitial thickening persists. ACT 112: Negative or not required by law. Electronically signed by: Jon Camacho M.D. 10/31/2020 1:08 PM
[2020-10-31] MEDS ORDERED: NOREPINEPHRINE/D5W 8 MG/508 ML IV ONE (19:36)
[2020-10-31] MEDS: NOREPINEPHRINE/D5W 16 MG/500 ML BAG IV SCH ×2 (19:45→23:17)
[2020-10-31] MEDS ORDERED: NOREPINEPHRINE/D5W 16 MG/500 ML BAG IV SCH ×2 (20:15→20:30)
[2020-11-01] MEDS: TUBE FEEDING WATER FLUSH NG SCH ×6 (01:40→20:07)
[2020-11-01 05:35] LABS: Basophils # (auto) 0.01 K/uL (0-0.2); Basophils % (auto) 0.1 %; Eosinophils # (auto) 0.45 K/uL (0-0.5); Eosinophils % (auto) 3.2 %; Hematocrit (blood only) 30.3 % (37-47); Hemoglobin 9.9 g/dL (12.0-16.0); Immature Granulocytes # (auto) 0.16 K/uL (0.00-0.02); Immature Granulocytes % (auto) 1.1 %; Lymphocytes # (auto) 0.95 K/uL (1.2-3.4); Lymphocytes % (auto) 6.7 %; Mean Corpuscular Hemoglobin 28.2 pg (25-34); Mean Corpuscular Hgb Conc 32.7 g/dL (32-36); Mean Corpuscular Volume 86.3 fL (80-100); Mean Platelet Volume 10.9 fL (7.4-10.4); Monocytes # (auto) 0.78 K/uL (0.11-0.59); Monocytes % (auto) 5.5 %; Neutrophils % (auto) 83.4 %; Platelet Count 317 K/uL (130-400); RDW Coefficient of Variation 18.9 % (11.5-14.5); RDW Standard Deviation 57.8 fL (36.4-46.3); Red Blood Count 3.51 M/uL (4.2-5.4); White Blood Count 14.25 K/uL (4.8-10.8)
[2020-11-01 05:56] LABS: BUN Creatinine Ratio 18.5 (10-20); Calcium 8.7 mg/dl (8.5-10.1); Creatinine Clr Calc Pharmacy 12.3 ml/min; Est GFR (Non-African American) 13.8 ml/min; Magnesium 2.1 mg/dl (1.8-2.4); Phosphorus 2.9 mg/dl (2.5-4.9); Potassium 4.6 mmol/L (3.5-5.1)
--- NOTE | 2020-11-01 07:45 | Hospitalist Progress Note ---
Date of Service November 01, 2020 Assessment & Plan (1) Acute respiratory failure with hypoxemia: Plan: Acute respiratory failure with hypoxemia 2/2 Covid pneumonia complicated by renal failure, now off airborne isolation - On extended Decadron protocol, last dose was 10/30 Date of intubation: 10/16/2020- extubated 10/25/20, remains on wall high flow,tapering oxygen as needed Patient completed prior 5-day course of azithromycin/Rocephin for superimposed infection, no additional antibiotics at this time Remdesivir - first dose given on 10/10. Received dose #2 on 10/11. - Due to development of LENNOX and transaminitis the remdesivir was stopped after 2nd dose. -s/p Tocilizumab - 10/13/20. off of negative pressure isolation, remains in ICU due to complexity of care, needing Levophed intermittently, especially with HD (2) Severe sepsis: Plan: -2nd to COVID-19 pneumonia. now resolved -Intermittent pressor support during dialysis despite midodrine (3) Acute kidney injury: Plan: -ATN due to COVID-19 (and/or remdesivir) with resulting severe acute renal failure. -Temporary HD catheter placed 10/15. -tunneled HD catheter placed 10/31/2020 as she is not showing signs of recovery - rehab wants to have dialysis prior to transfer, anticipated for 11/02/20 Dr. Alston has been following, Appreciate nephrology assistance (4) Pneumonia due to 2019 novel coronavirus: Plan: - completed treatment (5) Bacterial pneumonia: Plan: s/p ceftriaxone + azithromycin x 5 days earlier this stay. (6) Hypotension: Plan: 2nd to severe sepsis, COVID-19, medications (propofol), etc. Continue levophed PRN, weaned off today but anticipate she will need with HD tomorrow, Midodrine 5mg TID (7) Elevated troponin: Plan: -Peak trop 0.154. -2nd to myocardial demand ischemia. (8) Elevated d-dimer: Plan: -4890 on admission (10/10/20). -LE dopplers negative for DVT b/l. -Did not initially perform CT angiogram due to renal failure (9) Elevated liver enzymes: Plan: -transaminitis 2nd to COVID-19. -ast/alt normalized (10) Fecal occult blood test positive: Plan: -Melanic stools on second day of admission. -Cont PPI for GI prophylaxis. - transfused one unit PRBC on 10/24, (11) Hyponatremia: Plan: -resolved (12) Pneumothorax: Plan: Chest tube placed by critical care team, removed 10/26, no residual PTX Plan: -appreciate ICU and palliative care assistance -family meeting with palliative took place on 10/19 -- patient made DNR, no transfer to tertiary care- ICU serivce thinks pt would be LTACH candidate, will need HD, transiently needing Levophed, will likely have PEG tube and tube feeds spoke with patient about this option, she agrees with that option Admission and Anticipated Discharge Date Admission Date: October 10, 2020 Review of Systems Review of Systems: Mild distress and moderate fatigue no headache, no visual changes has some hoarse voice minor chest pain at the cath insertion site mild shortness of breath, no cough or wheezes no abdominal pain, nausea or vomiting, diarrhea or constipation no dysuria, hematuria or frequency no focal joint pain or peripheral swelling no back pain, CVA tenderness or radicular pain no bruising, bleeding or rashes no focal signs of weakness or numbness or altered sensation no complaints of anxiety or depression.. Physical Exam Physical Exam: The patient appeared well nourished and normally developed , but fatigued and now looking chronicially ill Vital signs as documented. Head exam is normocephalic atraumatic Neck is with JVD, thyromegaly, or carotid bruits. Lungs remain coarse bilaterally Cardiac exam, Rhythm is regular.. No murmurs, rubs or gallops. dialysis cath in the right anterior chest Abdominal exam reveals normal bowel sounds, soft non tender, no masses Extremities are 1+ edematous and both pedal pulses are present Neurologic exam is alert and oriented, extremely fatigued no focal loss of strength or sensation Skin is without bruises or rashes Psychologically is without concerns for anxiety or depression Results & Data Results & Data ([facility]) Vital Signs (Past 12 Hours) Vital Signs Temp Pulse Resp BP Pulse Ox 11/01/20 06:20 117/63 95 11/01/20 05:50 120/66 92 11/01/20 05:20 103 H 21 113/57 L 93 11/01/20 04:50 100 H 16 121/63 99 11/01/20 04:20 98 H 20 118/57 L 100 11/01/20 03:50 95 H 15 114/60 100 11/01/20 03:33 97.9 F 11/01/20 03:20 92 H 15 117/65 100 11/01/20 02:50 93 H 16 111/58 L 100 11/01/20 02:20 93 H 14 127/56 L 11/01/20 01:50 91 H 13 114/65 11/01/20 01:20 87 14 111/62 11/01/20 00:50 87 13 123/62 11/01/20 00:20 89 15 113/58 L 10/31/20 23:50 90 17 120/99 10/31/20 23:20 86 11 L 110/62 10/31/20 23:05 85 14 116/58 L 10/31/20 22:50 88 12 118/65 10/31/20 22:35 87 11 L 112/73 10/31/20 22:20 87 13 108/71 10/31/20 22:05 81 14 125/66 10/31/20 21:50 81 13 135/59 L 100 10/31/20 21:35 90 20 121/70 100 10/31/20 21:20 89 16 98/72 L 10/31/20 21:05 94 H 32 H 76/60 L 10/31/20 20:50 92 H 20 84/63 L 88 L 10/31/20 20:35 95 H 16 93/60 L 93 10/31/20 20:28 93 H 10/31/20 20:20 95 H 20 90/62 L 91 10/31/20 20:05 94 H 20 106/73 92 10/31/20 19:50 90 20 105/71 90 PG Care Time/CCT Total # of Minutes Spent Total Time Spent with Patient: Total time spent is greater than 50% in coordination of care (as documented) at patient's floor/unit and/or counseling patient: Coding Level of Care Code 34478 Subseq Hosp Care Lvl 3 Diagnoses Acute respiratory failure with hypoxemia J96.01 Severe sepsis A41.9; R65.20 Acute kidney injury N17.9 Pneumonia due to 2019 novel coronavirus U07.1; J12.82 Bacterial pneumonia J15.9 Hypotension I95.9 Elevated troponin R77.8 Elevated d-dimer R79.89 Elevated liver enzymes R74.8 Fecal occult blood test positive R19.5 Hyponatremia E87.1 Pneumothorax J93.9
[2020-11-01] MEDS: MIDODRINE HCL 2.5 MG TAB PO SCH ×3 (07:59→17:22)
[2020-11-01] MEDS: HEPARIN SOD 5,000 UNIT/0.5 ML VIAL SQ SCH ×2 (08:00→20:07)
[2020-11-01] MEDS: ESCITALOPRAM OXALATE ORAL SOLN 20 MG/20 ML UDP PO SCH (08:00)
--- NOTE | 2020-11-01 08:17 | Critical Care Progress Note ---
Date of Service November 01, 2020 Assessment & Plan (1) Pneumonia due to 2019 novel coronavirus: Plan: Zenobia Suero is a 75 yo female with PMHx significant for HTN and anxiety who was admitted on 10/10 with COVID-19 pneumonia. She was transferred to the ICU on 10/11. Required intubation, initiation of vasopressors for shock, ARDS, as well as acute renal failure requiring initiation of hemodialysis. Extubated on 10/25 but remains dialysis-dependent; s/p Permcath placement on 10/31. Also has vocal cord paralysis and may ultimately need PEG tube placement. NEURO: CAM-ICU negative. Required extremely high doses of sedatives while intubated and has successfully been weaned from high-dose Narcotics. - continue Clonazepam 0.25 mg daily PRN and Oxycodone 5 mg Q6H PRN (although patient currently not needing them) CARDIO: Hypotension, in context of COVID/ARDS and regular dialysis. No signs of sepsis. Improves with Levophed but does continue to require this after dialysis. Currently still on Midodrine. - Continue Midodrine 5 mg PO TID, goal MAP >65 PULM: Acute hypoxemic respiratory failure due to COVID-19 PNA. S/p high-dose DEXA ARDS. Also had chest tube placed, which was removed on 10/26 with residual pneumomediastinum that will resolve with time. Lastly she has evidence of vocal cord paralysis based on speech therapy evaluation. ENT consulted and did not feel that intervention is required at this time. - Currently has adequate oxygen saturation with high-flow NC at 10L/min; continue as needed to maintain SpO2 90-92% - Continue flutter valve and incentive spirometer. - Patient will need ongoing speech therapy as well as ENT follow-up. ID: Completed 5 days of Azithromycin and Rocephin for signs of superimposed bacterial pneumonia. Also received Tocilizumab. Patient does have ongoing diarrhea although is negative for c. diff on 10/30. Currently afebrile. RENAL: Likely ATN - multifactorial. Remains anuric and is dialysis-dependent; s/p Permcath placement by Vascular surgery in R IJ on 10/31. - trend electrolytes, renal replacement per nephrology - removed urinary Falk catheter GI: Small bore feeding tube placed at bedside on 10/27. Also has diarrhea as stated above - Continue tube feeds - GI consulted - recommends continuing NG tube feeds for now and will hold off on PEG tube, pending improvement in respiratory status ENDOCRINE: - Glycemic control per ICU HEME-ONC: Status post 1 unit packed RBC 10/24/2020. Stable anemia - likely anemia of chronic disease. - trend CBC VTE ppx: Heparin 5000 units SQ Q12H Diet: NPO, continue tube feeds CODE STATUS: DNR/DNI DISPO: stable for downgrade to tele today Thank you for allowing us to be part of this patient's care. Please refer to Dr. Prajapati's documentation for any further recommendations. (2) Acute respiratory failure with hypoxemia: (3) Acute kidney injury: (4) Pneumomediastinum: (5) Diarrhea: Admission and Anticipated Discharge Date Admission Date: October 10, 2020 Supervising Physician Co-Signing Physician Notes Dr. Frias was resident physician during care of patient. I separately evaluated patient for diaz portions of the history and the exam. I was present during the critical portion of medical decision making, and I discussed the case with the resident. I generally agree with the findings and plan. Requiring vasoactive's during dialysis only otherwise asymptomatic. Stable for downgrade out of ICU. Subjective Patient became profoundly hypotensive after dialysis and required Levophed to maintain adequate MAPs; Levophed was able to be weaned within several hours. This morning patient is stable on 10L high-flow NC. Review of Systems Review of Systems: Denies fever/chills, chest pain, palpitations, SOB, cough, N/V, abdominal pain, rash. Physical Exam Physical Exam: General: NAD. Cooperative. Frail-appearing. HEENT: Atraumatic, normocephalic. Pulm: Diminished lung sounds bilaterally. -wheezes, -rales, -rhonchi. Symmetrical chest rise. No increase work of breathing. No respiratory distress. Cardiac: RRR, -mrg. Radial pulses intact and symmetrical. Trace pedal edema. Abdominal: soft, non-tender, non-distended, BS x 4 Skin: warm, dry, no rash Results & Data Results & Data ([facility]) Vital Signs (Past 12 Hours) Vital Signs Temp Pulse Resp BP Pulse Ox 11/01/20 06:20 117/63 95 11/01/20 05:50 120/66 92 11/01/20 05:20 103 H 21 113/57 L 93 11/01/20 04:50 100 H 16 121/63 99 11/01/20 04:20 98 H 20 118/57 L 100 11/01/20 03:50 95 H 15 114/60 100 11/01/20 03:33 36.6 C 11/01/20 03:20 92 H 15 117/65 100 11/01/20 02:50 93 H 16 111/58 L 100 11/01/20 02:20 93 H 14 127/56 L 11/01/20 01:50 91 H 13 114/65 11/01/20 01:20 87 14 111/62 11/01/20 00:50 87 13 123/62 11/01/20 00:20 89 15 113/58 L 10/31/20 23:50 90 17 120/99 10/31/20 23:20 86 11 L 110/62 10/31/20 23:05 85 14 116/58 L 10/31/20 22:50 88 12 118/65 10/31/20 22:35 87 11 L 112/73 10/31/20 22:20 87 13 108/71 10/31/20 22:05 81 14 125/66 10/31/20 21:50 81 13 135/59 L 100 10/31/20 21:35 90 20 121/70 100 10/31/20 21:20 89 16 98/72 L 10/31/20 21:05 94 H 32 H 76/60 L 10/31/20 20:50 92 H 20 84/63 L 88 L 10/31/20 20:35 95 H 16 93/60 L 93 10/31/20 20:28 93 H 10/31/20 20:20 95 H 20 90/62 L 91 Resident Activity Tracking Resident Involvement: Resident Care Provided Care Provided: Adult Hospital Medicine
--- NOTE | 2020-11-01 09:40 | Billing Data ---
Date of Service November 01, 2020 Coding Level of Care Code 19395 Subseq Hosp Care Lvl 1
--- NOTE | 2020-11-01 09:55 | Nephrology Progress Note ---
Date of Service November 01, 2020 Assessment & Plan (1) Acute kidney injury: (2) Hypertension: (3) Malnutrition: (4) Anemia: Plan: 75-year-old female admitted with COVID pneumonia, intubated for acute respiratory failure.. 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 Received Toclizumab 10/13/20. Completed Dexamethasone therapy. Remdesivir was stopped after 2 doses due to LENNOX, elevated LFT's. completed azithromycin. Respiratory status improved and she was extubated on 10/27/2020. Has been having dialysis For almost last 2 weeks with no sign of renal recovery yet. Had rt IJ TDC on 10/31/20 and femoral catheter removed. --continue IHD while monitoring for renal recovery. Minimum UF unless volume overloaded. --iron study --epogen 74385 units with HD on 11/02/20 -- dose medications for GFR less than 10 Will follow Admission and Anticipated Discharge Date Admission Date: October 10, 2020 Sumeet Varela seen and evaluated in her room this morning. Had right IJ tunneled dialysis catheter yesterday, no active bleeding from catheter site but has been having some pain. Blood pressure has been acceptable, off of Levophed, after requiring for few hours post dialysis yesterday. Continues to be anuric with no sign of renal recovery. Review of Systems Review of Systems: detailed review system was unremarkable except mentioned above. Physical Exam Constitutional: + ill appearing; no acute distress Respiratory: normal respiratory effort, lungs clear to auscultation Auscultation: + diminished lung sounds Cardiovascular: RRR, no murmur, no edema Rate/Rhythm: regular rate and regular rhythm Heart Sounds: normal S1 and normal S2 Neurologic: moves all extremities and awake; not confused Psychiatric: Affect: + tearful affect Mood: + anxious mood Results & Data ([facility]) Vital Signs (Past 12 Hours) Vital Signs Temp Pulse Pulse Resp BP BP Pulse Ox 11/01/20 08:00 36.6 C 101 H 98 H 20 124/62 94 11/01/20 06:20 117/63 95 11/01/20 05:50 120/66 92 11/01/20 05:20 103 H 21 113/57 L 93 11/01/20 04:50 100 H 16 121/63 99 11/01/20 04:20 98 H 20 118/57 L 100 11/01/20 03:50 95 H 15 114/60 100 11/01/20 03:33 36.6 C 11/01/20 03:20 92 H 15 117/65 100 11/01/20 02:50 93 H 16 111/58 L 100 11/01/20 02:20 93 H 14 127/56 L 11/01/20 01:50 91 H 13 114/65 11/01/20 01:20 87 14 111/62 11/01/20 00:50 87 13 123/62 11/01/20 00:20 89 15 113/58 L 10/31/20 23:50 90 17 120/99 10/31/20 23:20 86 11 L 110/62 10/31/20 23:05 85 14 116/58 L 10/31/20 22:50 88 12 118/65 10/31/20 22:35 87 11 L 112/73 10/31/20 22:20 87 13 108/71 10/31/20 22:05 81 14 125/66 10/31/20 21:50 81 13 135/59 L 100 PG Care Time/CCT Total # of Minutes Spent Total Time Spent with Patient: Total time spent is greater than 50% in coordination of care (as documented) at patient's floor/unit and/or counseling patient: Coding Level of Care Code 73334 Subseq Hosp Care Lvl 3 Diagnoses Acute kidney injury N17.9 Hypertension I10 Malnutrition E46 Anemia D64.9
[2020-11-01] MEDS: ASPIRIN 81 MG CHEW NG SCH (11:57)
[2020-11-01] MEDS: NOVASOURCE RENAL 2.0 CAL 1000ML BAG NG SCH (12:38)
[2020-11-01] MEDS ORDERED: METOPROLOL TARTRATE 1 MG/ML VIAL IV PRN (16:50)
[2020-11-02] MEDS: TUBE FEEDING WATER FLUSH NG SCH ×6 (02:31→21:29)
[2020-11-02 05:31] LABS: Hematocrit (blood only) 29.7 % (37-47); Hemoglobin 9.7 g/dL (12.0-16.0); Mean Corpuscular Hemoglobin 28.3 pg (25-34); Mean Corpuscular Hgb Conc 32.7 g/dL (32-36); Mean Corpuscular Volume 86.6 fL (80-100); Mean Platelet Volume 10.6 fL (7.4-10.4); Platelet Count 320 K/uL (130-400); RDW Coefficient of Variation 18.6 % (11.5-14.5); RDW Standard Deviation 55.8 fL (36.4-46.3); Red Blood Count 3.43 M/uL (4.2-5.4); White Blood Count 18.47 K/uL (4.8-10.8)
[2020-11-02 06:14] LABS: Albumin Level 1.9 gm/dl (3.4-5.0); BUN Creatinine Ratio 22.2 (10-20); Est GFR (African American) 9.7 ml/min; Est GFR (Non-African American) 8.4 ml/min; Ferritin 936.8 ng/ml (8-388); Phosphorus 1.6 mg/dl (2.5-4.9); Potassium 5.1 mmol/L (3.5-5.1)
[2020-11-02] MEDS: ESCITALOPRAM OXALATE ORAL SOLN 20 MG/20 ML UDP PO SCH (09:08)
[2020-11-02] MEDS: HEPARIN SOD 5,000 UNIT/0.5 ML VIAL SQ SCH (09:08)
[2020-11-02] MEDS: MIDODRINE HCL 2.5 MG TAB PO SCH ×3 (09:08→16:55)
--- NOTE | 2020-11-02 10:13 | Nephrology Progress Note ---
Date of Service November 02, 2020 Assessment & Plan (1) Acute kidney injury: (2) Hypertension: (3) Malnutrition: (4) Anemia: Plan: 75-year-old female admitted with COVID pneumonia, intubated for acute respiratory failure.. 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 Received Toclizumab 10/13/20. Completed Dexamethasone therapy. Remdesivir was stopped after 2 doses due to LENNOX, elevated LFT's. completed azithromycin. Respiratory status improved and she was extubated on 10/27/2020. Has been having dialysis for almost last 2 weeks with no sign of renal recovery yet. Had rt IJ TDC on 10/31/20 and femoral catheter removed. --Continue IHD while monitoring for renal recovery. aim for 2 L UF if tolerated. --iron study --epogen 69162 units with HD Today, start on Venofer 200 mg daily, she will possibly get 1 dose here and if possible continue for 4 more doses at LTAC. -- dose medications for GFR less than 10 -- okay to be discharged to LTAC Will follow while inpatient Admission and Anticipated Discharge Date Admission Date: October 10, 2020 Sumeet Varela seen and evaluated in her room this morning During dialysis. tolerating dialysis so far with in for 1.5 L UF. Continues to be anuric with Sharp rise in creatinine in between dialysis and no sign of renal recovery. Review of Systems Review of Systems: detailed review system was unremarkable except mentioned above. Physical Exam Constitutional: + ill appearing; no acute distress Respiratory: normal respiratory effort, lungs clear to auscultation Auscultation: + diminished lung sounds and + crackles Cardiovascular: RRR, no murmur, no edema Neurologic: moves all extremities and awake; not confused Psychiatric: A+Ox3, euthymic affect Affect: + tearful affect Mood: + anxious mood Results & Data ([facility]) Vital Signs (Past 12 Hours) Vital Signs Temp Pulse Pulse Resp BP Pulse Ox 11/02/20 09:30 104 H 120/58 L 11/02/20 09:15 36.5 C 108 H 11/02/20 07:18 36.8 C 11/02/20 06:10 108 H 21 133/82 90 11/02/20 06:00 37.5 C 11/02/20 05:10 109 H 16 148/71 H 92 11/02/20 04:10 113 H 22 122/62 94 11/02/20 03:10 107 H 27 H 141/64 H 95 11/02/20 02:10 107 H 21 133/67 94 11/02/20 01:10 107 H 24 128/64 93 11/02/20 00:10 114 H 18 148/68 H 94 11/01/20 23:10 117 H 20 128/69 95 PG Care Time/CCT Total # of Minutes Spent Total Time Spent with Patient: Total time spent is greater than 50% in coordination of care (as documented) at patient's floor/unit and/or counseling patient: Coding Level of Care Code 99954 Subseq Hosp Care Lvl 3 Diagnoses Acute kidney injury N17.9 Hypertension I10 Malnutrition E46 Anemia D64.9
[2020-11-02] MEDS ORDERED: PHENYLEPHRINE 100MCG/ML 5ML SYR IV STA (10:33)
[2020-11-02] MEDS: IRON SUCROSE 200 MG in 0.9 % SODIUM CHLORIDE 100 ML IV SCH (11:16)
--- NOTE | 2020-11-02 12:13 | XRay Report ---
XR chest 1V portable HISTORY: fever increased oxygen demand COMPARISON: Chest 10/31/2020. FINDINGS: Feeding tube terminates in a postpyloric position. Right jugular dual-lumen catheter termin ates in the SVC. No pneumothorax. Bilateral hazy airspace opacities are again noted. This has progres sed on the right. The heart remains stable in size. Diffuse interstitial thickening, unchanged. IMPRESSION: 1. Bilateral airspace opacities which have progressed within the right lung. This likely represents a viral pneumonia. 2. Satisfactory support line placement. ACT 112: Negative or not required by law. Electronically signed by: Jon Camacho M.D. 11/02/2020 12:12 PM
[2020-11-02] MEDS ORDERED: SODIUM PHOSPHATE 3 MMOL/1 ML INFUSION IV STA (12:43)
[2020-11-02] MEDS ORDERED: PIPERACILLIN/TAZOBACTAM 3.375 GM in DEXTROSE 5% 100 ML IV SCH (12:45)
[2020-11-02] MEDS ORDERED: PIPERACILL/TAZOBAC CONSULT ACTIVE PRN (12:45)
[2020-11-02] MEDS ORDERED: PIPERACILLIN/TAZOBACTAM 3.375 GM in DEXTROSE 5% 100 ML IV ONE (13:00)
[2020-11-02] MEDS ORDERED: SODIUM PHOSPHATE 15 MMOL in SODIUM CHLORIDE 0.9% 250 ML IV ONE (13:15)
[2020-11-02] MEDS: ASPIRIN 81 MG CHEW NG SCH (13:16)
--- NOTE | 2020-11-02 15:44 | Hospitalist Progress Note ---
Date of Service November 02, 2020 Assessment & Plan (1) Acute respiratory failure with hypoxemia: Plan: Acute respiratory failure with hypoxemia 2/2 Covid pneumonia complicated by renal failure, now off airborne isolation - On extended Decadron protocol, last dose was 10/30 Date of intubation: 10/16/2020- extubated 10/25/20, remains on wall high flow,tapering oxygen as needed Patient completed prior 5-day course of azithromycin/Rocephin for superimposed infection, no additional antibiotics at this time Remdesivir - first dose given on 10/10. Received dose #2 on 10/11. - Due to development of LENNOX and transaminitis the remdesivir was stopped after 2nd dose. -s/p Tocilizumab - 10/13/20. off of negative pressure isolation, remains in ICU due to complexity of care, needing Levophed intermittently, especially with HD restarted on zosyn, mrsa screen is negative, blood cultures obtained on AGB precautions, discussed with infection control do not feel continuation of covid infection (2) Severe sepsis: Plan: -2nd to COVID-19 pneumonia. now resolved -Intermittent pressor support during dialysis despite midodrine (3) Acute kidney injury: Plan: -ATN due to COVID-19 (and/or remdesivir) with resulting severe acute renal failure. -Temporary HD catheter placed 10/15. -tunneled HD catheter placed 10/31/2020 as she is not showing signs of recovery - rehab wants to have dialysis prior to transfer, anticipated for 11/02/20 Nephrology has been following, Appreciate nephrology assistance (4) Pneumonia due to 2019 novel coronavirus: Plan: - completed treatment (5) Bacterial pneumonia: Plan: s/p ceftriaxone + azithromycin x 5 days earlier this stay. (6) Hypotension: Plan: 2nd to severe sepsis, COVID-19, medications (propofol), etc. Continue levophed PRN, weaned off today but anticipate she will need with HD tomorrow, Midodrine 5mg TID (7) Elevated troponin: Plan: -Peak trop 0.154. -2nd to myocardial demand ischemia. (8) Elevated d-dimer: Plan: -4890 on admission (10/10/20). -LE dopplers negative for DVT b/l. -Did not initially perform CT angiogram due to renal failure (9) Elevated liver enzymes: Plan: -transaminitis 2nd to COVID-19. -ast/alt normalized (10) Fecal occult blood test positive: Plan: -Melanic stools on second day of admission. -Cont PPI for GI prophylaxis. - transfused one unit PRBC on 10/24, (11) Hyponatremia: Plan: -resolved (12) Pneumothorax: Plan: Chest tube placed by critical care team, removed 10/26, no residual PTX Plan: -appreciate ICU and palliative care assistance -family meeting with palliative took place on 10/19 -- patient made DNR, no transfer to tertiary care- re confirmed this on 11/02/20 ICU serivce thinks pt would be LTACH candidate, will need HD, transiently needing Levophed, will likely have PEG tube and tube feeds spoke with patient about this option, she agrees with that option when she is stable Admission and Anticipated Discharge Date Admission Date: October 10, 2020 Subjective pt has had progressive oxygen requirements, did inform , pt confirms wishes to be DNI/DNR. CXR with progressive changes, pt does not appear in significantly distress. overall outlook is guarded, did not tolerate dialysis due to hypotension low grade fever Review of Systems Review of Systems: Mild distress and moderate fatigue no headache, no visual changes has some hoarse voice minor chest pain at the cath insertion site moderate shortness of breath, produictive cough or wheezes no abdominal pain, nausea or vomiting, diarrhea or constipation no dysuria, hematuria or frequency no focal joint pain or peripheral swelling no back pain, CVA tenderness or radicular pain no bruising, bleeding or rashes no focal signs of weakness or numbness or altered sensation no complaints of anxiety or depression.. Physical Exam Physical Exam: The patient appeared well nourished and normally developed , but fatigued and now looking chronicially ill Vital signs as documented. Head exam is normocephalic atraumatic Neck is with JVD, thyromegaly, or carotid bruits. Lungs remain coarse bilaterally Cardiac exam, Rhythm is regular.. No murmurs, rubs or gallops. dialysis cath in the right anterior chest Abdominal exam reveals normal bowel sounds, soft non tender, no masses Extremities are 1+ edematous and both pedal pulses are present Neurologic exam is alert and oriented, extremely fatigued no focal loss of strength or sensation Skin is without bruises or rashes Psychologically is without concerns for anxiety or depression Results & Data Results & Data ([facility]) Vital Signs (Past 12 Hours) Vital Signs Temp Pulse Pulse Resp BP BP Pulse Ox 11/02/20 15:36 100.0 F H 11/02/20 11:48 100.6 F H 11/02/20 11:40 99.0 F 109 H 116/55 L 11/02/20 11:34 106 H 19 116/53 L 93 11/02/20 11:18 107 H 33 H 61/41 L 94 11/02/20 11:15 106 H 61/41 L 11/02/20 11:04 111 H 19 90/67 L 94 11/02/20 11:00 111 H 119/55 L 11/02/20 10:49 109 H 19 105/82 92 11/02/20 10:45 110 H 90/63 L 11/02/20 10:31 114 H 28 H 74/46 L 90 11/02/20 10:30 110 H 91/55 L 11/02/20 10:29 114 H 20 68/43 L 91 11/02/20 10:15 115 H 90/48 L 11/02/20 10:13 117 H 26 H 90/48 L 85 L 11/02/20 10:00 113 H 106/74 11/02/20 09:45 109 H 120/54 L 11/02/20 09:30 104 H 120/58 L 11/02/20 09:15 97.7 F 108 H 11/02/20 09:10 108 H 19 121/62 94 11/02/20 08:10 112 H 16 128/71 94 11/02/20 07:18 98.2 F 11/02/20 07:10 113 H 18 151/74 H 93 11/02/20 06:10 108 H 21 133/82 90 11/02/20 06:00 99.5 F 11/02/20 05:10 109 H 16 148/71 H 92 11/02/20 04:10 113 H 22 122/62 94 PG Care Time/CCT Total # of Minutes Spent Total Time Spent with Patient: Total time spent is greater than 50% in coordination of care (as documented) at patient's floor/unit and/or counseling patient: Coding Level of Care Code 38186 Subseq Hosp Care Lvl 3 Diagnoses Acute respiratory failure with hypoxemia J96.01 Severe sepsis A41.9; R65.20 Acute kidney injury N17.9 Pneumonia due to 2019 novel coronavirus U07.1; J12.82 Bacterial pneumonia J15.9 Hypotension I95.9 Elevated troponin R77.8 Elevated d-dimer R79.89 Elevated liver enzymes R74.8 Fecal occult blood test positive R19.5 Hyponatremia E87.1 Pneumothorax J93.9
[2020-11-02 15:46] LABS: iSTAT Allen Test Pass; iSTAT Art Bld Gas pCO2 Correct 36 mmHg (35-46); iSTAT Art Bld Gas pH Corrected 7.501 (7.35-7.45); iSTAT Arterial Blood Gas HCO3 28 meg/L (19-24); iSTAT Arterial Blood Gas pCO2 35 mmHg (35-46); iSTAT Arterial Blood Gas pH 7.51 (7.35-7.45); iSTAT Arterial Blood Gas pO2 44 mmHg (80-95); iSTAT Arterial Blood Gas pO2 C 46; iSTAT Carbon Dioxide 29 mmol/L (24-31); iSTAT Hematocrit 28 % (37-47); iSTAT Hemoglobin 9.5 g/dl (12.0-16.0); iSTAT Potassium 4.1 mmol/L (3.3-5.0); iSTAT Site L Radial; iSTAT Sodium 136 mmol/L (135-144)
[2020-11-02] MEDS: NOVASOURCE RENAL 2.0 CAL 1000ML BAG NG SCH (16:55)
[2020-11-02] MEDS ORDERED: OXYMETAZOLINE 0.05% 30 ML BTL ONE (20:00)
[2020-11-02] MEDS: PIPERACILLIN/TAZOBACTAM 3.375 GM in DEXTROSE 5% 100 ML IV SCH (21:15)
[2020-11-02] MEDS ORDERED: OXYMETAZOLINE 0.05% 30 ML BTL PRN (22:07)
[2020-11-03] MEDS: TUBE FEEDING WATER FLUSH NG SCH ×6 (02:32→22:25)
--- NOTE | 2020-11-03 07:33 | Hospitalist Progress Note ---
Date of Service November 03, 2020 Assessment & Plan (1) Acute respiratory failure with hypoxemia: Plan: Acute respiratory failure with hypoxemia 2/2 Covid pneumonia complicated by renal failure, off airborne but with escalation of oxygen to vapotherm, now on AGP precautions restarted on Zosyn 11/02/20, procalcitonin 7.7 on 11/03, will add vancomycin in case this is a line associated gram-positive infection mrsa negative, CRP is 31 11/03 bio fire -11/03 Covid antibodies are present and serology discussed if continuation or re activation of Covid pneumonia due to appearance of CXR and oxygen requirement bio fire makes this less likely however exact etiology of her profound oxygen requirements still unclear we will continue to treat with antibiotics for aspiration pneumonia could be pneumonitis could be volume overload. Patient was dialyzed on 11/03 with the help of pressors to hopefully remove fluid and improve her oxygenation with modest results -was on extended Decadron protocol, last dose was 10/30 question if we should reengage in dexamethasone to reduce inflammatory changes in lungs if this is pneumonitis however this could also impede treatment of bacterial infections Date of intubation: 10/16/2020- extubated 10/25/20, remains on wall high flow,tapering oxygen as needed Patient completed prior 5-day course of azithromycin/Rocephin for superimposed infection, no additional antibiotics at this time Remdesivir - first dose given on 10/10. Received dose #2 on 10/11. - Due to development of LENNOX and transaminitis the remdesivir was stopped after 2nd dose. -s/p Tocilizumab - 10/13/20. off of negative pressure isolation, remains in ICU due to complexity of care, needing Levophed intermittently, especially with HD blood cultures obtained on AGB precautions, discussed with infection control do not feel continuation of covid infection (2) Severe sepsis: Plan: -2nd to COVID-19 pneumonia. felt to be resolved ? recurrence with tachycardia, lower bp and hypoxia -Intermittent pressor support during dialysis despite midodrine Patient on vancomycin with Zosyn therapy for elevated pro-Moustapha persistent infectious symptomology and pulmonary infiltrates (3) Acute kidney injury: Plan: -ATN due to COVID-19 (and/or remdesivir) with resulting severe acute renal failure. -Temporary HD catheter placed 10/15. -tunneled HD catheter placed 10/31/2020 as she is not showing signs of recovery - rehab wants to have dialysis prior to transfer, anticipated for 11/02/20 Nephrology has been following, Appreciate nephrology assistance (4) Pneumonia due to 2019 novel coronavirus: Plan: - completed treatment, cxr changes 11/02 however bio fire negative immunoglobulins positive for immunity (5) Bacterial pneumonia: Plan: s/p ceftriaxone + azithromycin x 5 days earlier this stay. Now on Zosyn and Vanco (6) Hypotension: Plan: 2nd to severe sepsis, COVID-19, medications (propofol), etc. Continue levophed PRN, weaned off today but anticipate she will need with HD tomorrow, Midodrine 5mg TID (7) Elevated troponin: Plan: -Peak trop 0.154. -2nd to myocardial demand ischemia. Repeat troponin VIII/XX 6 is negative (8) Elevated d-dimer: Plan: -4890 on admission (10/10/20). -LE dopplers negative for DVT b/l. -Did not initially perform CT angiogram due to renal failure (9) Elevated liver enzymes: Plan: -transaminitis 2nd to COVID-19. -ast/alt normalized (10) Fecal occult blood test positive: Plan: -Melanic stools on second day of admission. -Cont PPI for GI prophylaxis. - transfused one unit PRBC on 10/24, (11) Hyponatremia: Plan: -resolved (12) Pneumothorax: Plan: Chest tube placed by critical care team, removed 10/26, no residual PTX Plan: -appreciate ICU and palliative care assistance -family meeting with palliative took place on 10/19 -- patient made DNR, no transfer to tertiary care- re confirmed this on 11/02/20 ICU serivce thinks pt would be LTACH candidate, will need HD, transiently needing Levophed, will likely have PEG tube and tube feeds spoke with patient about this option, she agrees with that option when she is stable Admission and Anticipated Discharge Date Admission Date: October 10, 2020 Subjective Patient had rapid decline during the afternoon hours of 825. She remains on Vapotherm 50 L 90%. She is got temperature of 100.6. She did have a bio fire test which was negative for all viral pneumonitis etiologies. She is on antibiotics for coverage of gram-negative's, Pseudomonas, and aspiration ammonia. Her MRSA swab is negative and her Covid antibodies are positive suggesting she has mounted immunity Covid. She is fatigued she confirmed yesterday that she did not want any further aggressive measures were continued supporting her respiratory status however without great understanding of what the cause such profound hypoxemia. On 11/03 nephrology is attempting to volume offload her in the fact that some of her pulmonary changes could be from volume overload. However her hypotension has complicated her dialysis requiring pressors during dialysis. Review of Systems 2 Review of Systems: Moderate distress and moderate fatigue no headache, no visual changes has some hoarse voice minor chest pain at the cath insertion site Continues with moderate shortness of breath, patient had epistaxis and subsequently had coughed up some blood on 11/02 no abdominal pain, nausea or vomiting, diarrhea or constipation no dysuria, hematuria or frequency no focal joint pain or peripheral swelling no back pain, CVA tenderness or radicular pain no bruising, epistaxis on 11/02 associated with CPAP no focal signs of weakness or numbness or altered sensation overall very weak Extreme fatigue Physical Exam Physical Exam: The patient appeared fatigued and now looking chronicially ill Vital signs as documented. Head exam is normocephalic atraumatic Neck is with JVD, thyromegaly, or carotid bruits. Lungs remain coarse bilaterally Cardiac exam, Rhythm is regular.. No murmurs, rubs or gallops. dialysis cath in the right anterior chest Abdominal exam reveals normal bowel sounds, soft non tender, no masses Extremities are 1+ edematous and both pedal pulses are present Neurologic exam is alert and oriented, extremely fatigued no focal loss of strength or sensation Skin is without bruises or rashes Psychologically is without concerns for anxiety or depression Results & Data Results & Data ([facility]) Vital Signs (Past 12 Hours) Vital Signs Temp Pulse Pulse Resp BP Pulse Ox 11/03/20 06:19 97 H 18 129/61 94 11/03/20 06:00 99.5 F 11/03/20 05:49 95 H 21 144/64 H 90 11/03/20 05:19 104 H 18 146/64 H 99 11/03/20 05:00 93 H 23 92 11/03/20 04:49 94 H 24 145/73 H 92 11/03/20 04:19 98 H 24 132/61 95 11/03/20 04:00 97.9 F 11/03/20 03:49 101 H 19 121/72 94 11/03/20 03:19 98 H 33 H 143/60 H 94 11/03/20 02:49 100 H 31 H 149/89 H 92 11/03/20 02:19 94 H 20 134/64 91 11/03/20 01:49 95 H 13 109/67 93 11/03/20 01:19 101 H 18 125/63 93 11/03/20 01:18 100 H 20 94 11/03/20 00:49 93 H 15 146/77 H 95 11/03/20 00:19 89 12 141/65 H 96 11/03/20 00:00 98.4 F 11/02/20 23:49 91 H 134/58 L 94 11/02/20 23:19 96 H 19 151/61 H 95 11/02/20 22:49 99 H 20 140/72 92 11/02/20 22:19 94 H 23 149/61 H 84 L 11/02/20 22:09 88 20 88 L 11/02/20 21:27 97.9 F 11/02/20 21:19 92 H 25 H 140/68 97 11/02/20 20:19 104 H 24 135/49 L 96 11/02/20 19:37 105 H 18 96 PG Care Time/CCT Total # of Minutes Spent Total Time Spent with Patient: Total time spent is greater than 50% in coordination of care (as documented) at patient's floor/unit and/or counseling patient: Coding Level of Care Code 69305 Subseq Hosp Care Lvl 3 Diagnoses Acute respiratory failure with hypoxemia J96.01 Severe sepsis A41.9; R65.20 Acute kidney injury N17.9 Pneumonia due to 2019 novel coronavirus U07.1; J12.82 Bacterial pneumonia J15.9 Hypotension I95.9 Elevated troponin R77.8 Elevated d-dimer R79.89 Elevated liver enzymes R74.8 Fecal occult blood test positive R19.5 Hyponatremia E87.1 Pneumothorax J93.9
--- NOTE | 2020-11-03 07:50 | Critical Care Progress Note ---
Date of Service November 03, 2020 Assessment & Plan (1) Pneumonia due to 2019 novel coronavirus: Plan: Zenobia Suero is a 75 yo female with PMHx significant for HTN and anxiety who was admitted on 10/10 with COVID-19 pneumonia. She was transferred to the ICU on 10/11. Required intubation, initiation of vasopressors for shock, ARDS, as well as acute renal failure requiring initiation of hemodialysis. Extubated on 10/25 but remains dialysis-dependent; s/p Permcath placement on 10/31. Also has vocal cord paralysis and may ultimately need PEG tube placement. Patient was changed to tele status on 11/01 but required upgrade to ICU status on 11/02 for worsening respiratory status and persistent need for vasopressors associated with dialysis. NEURO: CAM-ICU negative. Required extremely high doses of sedatives while intubated and has successfully been weaned from high-dose Narcotics. - continue Clonazepam 0.25 mg daily PRN and Oxycodone 5 mg Q6H PRN (although patient currently not needing them) CARDIO: Hypotension, in context of COVID/ARDS and regular dialysis. No signs of sepsis. Improves with Levophed but does continue to require this after dialysis. Currently still on Midodrine. - Continue Midodrine 5 mg PO TID and Levophed as needed, goal MAP >65 PULM: Acute hypoxemic respiratory failure due to COVID-19 PNA. S/p high-dose DEXA ARDS. Also had chest tube placed, which was removed on 10/26 with residual pneumomediastinum that will resolve with time. Lastly she has evidence of vocal cord paralysis based on speech therapy evaluation. ENT consulted and did not feel that intervention is required at this time. Now with worsening respiratory status that is likely due to ongoing COVID-19 infection. - Currently has adequate oxygen saturation with high-flow NC at 50L/min at 80% FiO2 - Patient is DNI and will not be intubated in setting of further respiratory decompensation - Continue flutter valve and incentive spirometer if tolerated - Patient will need ongoing speech therapy as well as ENT follow-up. ID: Completed 5 days of Azithromycin and Rocephin for signs of superimposed bacterial pneumonia. Also received Tocilizumab. Patient does have ongoing diarrhea although is negative for c. diff on 10/30. Currently afebrile. Patient has up-trending WBC/CRP and worsening respiratory status, likely due to ongoing COVID-19 infection. Do not suspect superimposed bacterial pneumonia. - ordered respiratory BioFire panel as well as COVID-19 IgM/IgG - pending - will continue Zosyn for now - discontinue pending BioFire results - patient will be moved to respiratory isolation room if remains COVID-19 positive RENAL: Likely ATN - multifactorial. Remains anuric and is dialysis-dependent; s/p Permcath placement by Vascular surgery in R IJ on 10/31. - trend electrolytes, renal replacement and dialysis per nephrology GI: Small bore feeding tube placed at bedside on 10/27. Also has diarrhea as stated above - Continue tube feeds - GI consulted - recommends continuing NG tube feeds for now and will hold off on PEG tube, pending improvement in respiratory status ENDOCRINE: - Glycemic control per ICU HEME-ONC: Status post 1 unit packed RBC 10/24/2020. Stable anemia - likely anemia of chronic disease. - Venofer per Nephrology - trend CBC VTE ppx: Heparin 5000 units SQ Q12H Diet: NPO, continue tube feeds CODE STATUS: DNR/DNI DISPO: ICU Thank you for allowing us to be part of this patient's care. Please refer to Dr. Prajapati's documentation for any further recommendations. (2) Acute respiratory failure with hypoxemia: (3) Acute kidney injury: (4) Pneumomediastinum: (5) Diarrhea: Admission and Anticipated Discharge Date Admission Date: October 10, 2020 Supervising Physician Co-Signing Physician Notes Dr. Frias was resident physician during care of patient. I separately evaluated patient for diaz portions of the history and the exam. I was present during the critical portion of medical decision making, and I discussed the case with the resident. I generally agree with the findings and plan. Worsening oxygen requirement, reaffirmed DNR/DNI. Will obtain bio fire to rule out reactivation of Covid and also checking Covid antibodies. Patient to remain in ICU. Still requiring vasoactive medication during dialysis. Restarting heparin DVT prophylaxis Subjective After downgrade to PCU status on 11/01 the patient has had increasing oxygen requirements. There was concern for worsening respiratory status due to COVID-19 vs superimposed bacterial infection and he was transferred back to ICU status for close hemodynamic monitoring. The patient's oxygen requirements continue to increase and she is now on high- flow nasal cannula 50L/min at 80% FiO2. The patient appears comfortable on current high-flow settings. She denies SOB on settings. Denies fever/chills, chest pain, palpitations, N/V, abdominal pain, rash. Review of Systems Review of Systems: Pertinent positives and negatives mentioned in HPI. Physical Exam Physical Exam: General: A+Ox3. NAD. Cooperative. Frail-appearing. HEENT: Atraumatic, normocephalic. Pulm: Diminished lung sounds bilaterally. -wheezes, -rales, -rhonchi. Symmetrical chest rise. No increase work of breathing. No respiratory distress. Cardiac: RRR, -mrg. Radial pulses intact and symmetrical. No LE edema. Abdominal: soft, non-tender, non-distended, BS x 4 Skin: warm, dry, no rash Results & Data Results & Data ([facility]) Vital Signs (Past 12 Hours) Vital Signs Temp Pulse Pulse Resp BP Pulse Ox 11/03/20 07:19 99 H 15 140/67 96 11/03/20 07:01 95 H 19 96 11/03/20 06:49 94 H 12 147/74 H 97 11/03/20 06:19 97 H 18 129/61 94 11/03/20 06:00 37.5 C 11/03/20 05:49 95 H 21 144/64 H 90 11/03/20 05:19 104 H 18 146/64 H 99 11/03/20 05:00 93 H 23 92 11/03/20 04:49 94 H 24 145/73 H 92 11/03/20 04:19 98 H 24 132/61 95 11/03/20 04:00 36.6 C 11/03/20 03:49 101 H 19 121/72 94 11/03/20 03:19 98 H 33 H 143/60 H 94 11/03/20 02:49 100 H 31 H 149/89 H 92 11/03/20 02:19 94 H 20 134/64 91 11/03/20 01:49 95 H 13 109/67 93 11/03/20 01:19 101 H 18 125/63 93 11/03/20 01:18 100 H 20 94 11/03/20 00:49 93 H 15 146/77 H 95 11/03/20 00:19 89 12 141/65 H 96 11/03/20 00:00 36.9 C 11/02/20 23:49 91 H 134/58 L 94 11/02/20 23:19 96 H 19 151/61 H 95 11/02/20 22:49 99 H 20 140/72 92 11/02/20 22:19 94 H 23 149/61 H 84 L 11/02/20 22:09 88 20 88 L 11/02/20 21:27 36.6 C 11/02/20 21:19 92 H 25 H 140/68 97 11/02/20 20:19 104 H 24 135/49 L 96 Critical Care Time I have personally spent 35 minutes of critical care time in the direct management of this patient. This is a life/limb threatening event. This includes time spent evaluating patient, direct bedside care, chart review, placing orders, interpretation of diagnostic studies, discussion with consultants, patient, and/or family members regarding treatment decisions, as well as other required patient management activities. This time is exclusive of all separately billable procedures, and teaching time and separate from and in addition to any other critical care service time. Resident Activity Tracking Resident Involvement: Resident Care Provided Care Provided: Adult [facility]
[2020-11-03 08:11] LABS: Basophils # (auto) 0.03 K/uL (0-0.2); Basophils % (auto) 0.1 %; Eosinophils # (auto) 0.97 K/uL (0-0.5); Eosinophils % (auto) 4.8 %; Hemoglobin 8.3 g/dL (12.0-16.0); Immature Granulocytes # (auto) 0.59 K/uL (0.00-0.02); Immature Granulocytes % (auto) 2.9 %; Lymphocytes # (auto) 1.04 K/uL (1.2-3.4); Lymphocytes % (auto) 5.2 %; Mean Corpuscular Hemoglobin 28.1 pg (25-34); Mean Corpuscular Hgb Conc 31.9 g/dL (32-36); Mean Corpuscular Volume 88.1 fL (80-100); Mean Platelet Volume 11.1 fL (7.4-10.4); Monocytes # (auto) 1.16 K/uL (0.11-0.59); Monocytes % (auto) 5.7 %; Neutrophils # (auto) 16.39 K/uL (1.4-6.5); Neutrophils % (auto) 81.3 %; Nucleated RBC # (auto) 0.02 K/uL (0-0); Nucleated RBC % (auto) 0.1 %; Platelet Count 329 K/uL (130-400); RDW Coefficient of Variation 18.5 % (11.5-14.5); RDW Standard Deviation 57.7 fL (36.4-46.3); Red Blood Count 2.95 M/uL (4.2-5.4); White Blood Count 20.18 K/uL (4.8-10.8)
[2020-11-03 09:10] LABS: BUN Creatinine Ratio 21.2 (10-20); Blood Urea Nitrogen 87 mg/dl (7-18); Calcium 8.5 mg/dl (8.5-10.1); Carbon Dioxide 26 mmol/L (21-32); Chloride 100 mmol/L (98-107); Creatinine Clr Calc Pharmacy 9.2 ml/min; Est GFR (African American) 11.7 ml/min; Est GFR (Non-African American) 10.1 ml/min; Ferritin 1576.2 ng/ml (8-388); Glucose 141 mg/dl (70-99); Phosphorus 2.8 mg/dl (2.5-4.9); Potassium 4.1 mmol/L (3.5-5.1); Sodium 135 mmol/L (136-145); Troponin I < 0.015 ng/ml (0-0.045)
[2020-11-03] MEDS: IRON SUCROSE 200 MG in 0.9 % SODIUM CHLORIDE 100 ML IV SCH (09:21)
[2020-11-03] MEDS: ESCITALOPRAM OXALATE ORAL SOLN 20 MG/20 ML UDP PO SCH (09:23)
[2020-11-03] MEDS: MIDODRINE HCL 2.5 MG TAB PO SCH ×3 (09:23→17:27)
[2020-11-03] MEDS ORDERED: NOREPINEPHRINE/D5W 8 MG/508 ML BAG IV SCH (09:45)
[2020-11-03] MEDS ORDERED: STAT IV Infusion **Titration per Protocol STA ×2 (09:45)
[2020-11-03] MEDS ORDERED: NOREPINEPHRINE/D5W 8 MG/508 ML IV ONE (09:50)
[2020-11-03] MEDS: NOREPINEPHRINE/D5W 8 MG/508 ML BAG IV SCH (10:20)
--- NOTE | 2020-11-03 10:35 | Nephrology Progress Note ---
Date of Service November 03, 2020 Assessment & Plan (1) Acute kidney injury: (2) Hypertension: (3) Malnutrition: (4) Anemia: Plan: 75-year-old female admitted with COVID pneumonia, intubated for acute respiratory failure.. 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 Received Toclizumab 10/13/20. Completed Dexamethasone therapy. Remdesivir was stopped after 2 doses due to LENNOX, elevated LFT's. completed azithromycin. Respiratory status improved and she was extubated on 10/27/2020. Has been having dialysis for almost last 2 weeks with no sign of renal recovery yet. Had rt IJ TDC on 10/31/20 and femoral catheter removed. --Continue IHD while monitoring for renal recovery. aim for 3 L UF Today if tolerated. --epogen 07544 units with HD given on 11/02/2020, on Venofer 200 mg daily. --dose medications for GFR less than 10 Will follow while inpatient Admission and Anticipated Discharge Date Admission Date: October 10, 2020 Sumeet Fregoso denied any specific symptoms this morning. Yesterday she again spiked fever and her oxygen requirement went up, started again on antibiotic. Fever se ems to have improved. Remained anuric. Became hypotensive with dialysis yesterday and dialysis was stopped after 1 hour. Started dialysis again this morning, blood pressure dropped within 10 minutes and currently on pressor. Review of Systems Review of Systems: detailed review system was unremarkable except mentioned above. Physical Exam Constitutional: + ill appearing; no acute distress Respiratory: normal respiratory effort, lungs clear to auscultation Auscultation: + diminished lung sounds and + crackles Cardiovascular: RRR, no murmur, no edema Neurologic: moves all extremities and awake; not confused Psychiatric: A+Ox3, euthymic affect Affect: + tearful affect Mood: + anxious mood Results & Data ([facility]) Vital Signs (Past 12 Hours) Vital Signs Temp Pulse Pulse Resp BP Pulse Ox 11/03/20 10:14 105 H 23 103/61 91 11/03/20 09:19 94 H 17 139/81 95 11/03/20 08:19 94 H 13 141/94 H 93 11/03/20 08:00 96 H 11/03/20 07:19 99 H 15 140/67 96 11/03/20 07:01 95 H 19 96 11/03/20 06:49 94 H 12 147/74 H 97 11/03/20 06:19 97 H 18 129/61 94 11/03/20 06:00 37.5 C 11/03/20 05:49 95 H 21 144/64 H 90 11/03/20 05:19 104 H 18 146/64 H 99 11/03/20 05:00 93 H 23 92 11/03/20 04:49 94 H 24 145/73 H 92 11/03/20 04:19 98 H 24 132/61 95 11/03/20 04:00 36.6 C 11/03/20 03:49 101 H 19 121/72 94 11/03/20 03:19 98 H 33 H 143/60 H 94 11/03/20 02:49 100 H 31 H 149/89 H 92 11/03/20 02:19 94 H 20 134/64 91 11/03/20 01:49 95 H 13 109/67 93 11/03/20 01:19 101 H 18 125/63 93 11/03/20 01:18 100 H 20 94 11/03/20 00:49 93 H 15 146/77 H 95 11/03/20 00:19 89 12 141/65 H 96 11/03/20 00:00 36.9 C 11/02/20 23:49 91 H 134/58 L 94 11/02/20 23:19 96 H 19 151/61 H 95 11/02/20 22:49 99 H 20 140/72 92 PG Care Time/CCT Total # of Minutes Spent Total Time Spent with Patient: Total time spent is greater than 50% in coordination of care (as documented) at patient's floor/unit and/or counseling patient: Coding Level of Care Code 69576 Subseq Hosp Care Lvl 3 Diagnoses Acute kidney injury N17.9 Hypertension I10 Malnutrition E46 Anemia D64.9
--- NOTE | 2020-11-03 11:02 | Palliative Care Progress Note ---
Date of Service November 03, 2020 Assessment & Plan (1) Palliative care encounter: Plan: Patient has been showing some stability over the past few weeks, and was moving towards continued care at [facility]; therefore, palliative medicine was following more peripherally. She has been downgraded to PCU telemetry status, but remained in ICU. Over the last 48 hours, her oxygen demands have increased, along with her oxygen requirements. She had been retested via Biofire for Covid and this result was negative, despite her chest x-ray appearing residual from Covid symptoms. She is currently on Hi-flow 60 L 100%. She is comfortable and awake. I did talk with the patients , Gail, and the hospitalist and nurse did as well at various times. The patient has been made a DNR/DNI on previous conversation. This was confirmed today with the patients that if her oxygen needs to continue to increase, we will have reached our maximum efforts on the hi-Flow. He said that he has talked with his four adult children regarding her guarding prognosis. She does still require vasoactive management while on hemodialysis as well. For now, continue treatment; however, she does have a guarded recovery. Palliative Medicine will follow more closely. (2) Acute respiratory failure with hypoxemia: (3) Pneumonia due to 2019 novel coronavirus: (4) Acute kidney injury: (5) Severe sepsis: Admission and Anticipated Discharge Date Admission Date: October 10, 2020 Subjective Patient with increased O2 needs over the past 48 hours. Patient continues to be dependent on hemodialysis and requires pressors when receiving hemodialysis. See A/P for further details. Review of Systems Review of Systems: [place] [facility] Assessment Scale: Pain: 1/3 AD SOB: 2/3 AD Anxiety: 1/3 AD Palliative Performance Scale: 20% Physical Exam Constitutional: comfortable Cardiovascular: Rate/Rhythm: regular rhythm and + tachycardic Heart Sounds: normal S1 and normal S2 Gastrointestinal (Abdomen): Inspection/Auscultation: abdomen normal to inspect ion Neurologic: awake Results & Data ([facility]) Vital Signs (Past 12 Hours) Vital Signs Temp Pulse Pulse Resp BP Pulse Ox 11/03/20 10:43 110 H 21 120/56 L 93 11/03/20 10:30 91 H 124/68 11/03/20 10:15 105 H 103/61 11/03/20 10:14 105 H 23 103/61 91 11/03/20 10:00 92 H 136/70 11/03/20 09:35 37.5 C 90 11/03/20 09:19 94 H 17 139/81 95 11/03/20 08:19 94 H 13 141/94 H 93 11/03/20 08:00 96 H 11/03/20 07:19 99 H 15 140/67 96 11/03/20 07:01 95 H 19 96 11/03/20 06:49 94 H 12 147/74 H 97 11/03/20 06:19 97 H 18 129/61 94 11/03/20 06:00 37.5 C 11/03/20 05:49 95 H 21 144/64 H 90 11/03/20 05:19 104 H 18 146/64 H 99 11/03/20 05:00 93 H 23 92 11/03/20 04:49 94 H 24 145/73 H 92 11/03/20 04:19 98 H 24 132/61 95 11/03/20 04:00 36.6 C 11/03/20 03:49 101 H 19 121/72 94 11/03/20 03:19 98 H 33 H 143/60 H 94 11/03/20 02:49 100 H 31 H 149/89 H 92 11/03/20 02:19 94 H 20 134/64 91 11/03/20 01:49 95 H 13 109/67 93 11/03/20 01:19 101 H 18 125/63 93 11/03/20 01:18 100 H 20 94 11/03/20 00:49 93 H 15 146/77 H 95 11/03/20 00:19 89 12 141/65 H 96 11/03/20 00:00 36.9 C 11/02/20 23:49 91 H 134/58 L 94 11/02/20 23:19 96 H 19 151/61 H 95 PG Care Time/CCT Total # of Minutes Spent Total Time Spent with Patient: Total time spent is greater than 50% in coordination of care (as documented) at patient's floor/unit and/or counseling patient: 35 minutes with >50% of that time spent assessing the patient, discussing goals of care with family and collaborating with IDT Coding Level of Care Code 41253 Subseq Hosp Care Lvl 3 Diagnoses Palliative care encounter Z51.5 Acute respiratory failure with hypoxemia J96.01 Pneumonia due to 2019 novel coronavirus U07.1; J12.82 Acute kidney injury N17.9 Severe sepsis A41.9; R65.20 Time Spent (min) 35
[2020-11-03 11:13] LABS: Adenovirus PCR Not Detected (NotDetected); Bordetella parapertussis PCR Not Detected (NotDetected); Bordetella pertussis PCR Not Detected (NotDetected); Chlamydia pneumoniae PCR Not Detected (NotDetected); Coronavirus 229E PCR Not Detected (NotDetected); Coronavirus CoV-2 (COVID19)PCR Not Detected (NotDetected); Coronavirus HKU1 PCR Not Detected (NotDetected); Coronavirus NL63 PCR Not Detected (NotDetected); Coronavirus OC43PCR Not Detected (NotDetected); Human Metapneumovirus PCR Not Detected (NotDetected); Influenza A PCR Not Detected (NotDetected); Influenza B PCR Not Detected (NotDetected); Mycoplasma pneumoniae PCR Not Detected (NotDetected); Parainfluenza Virus 1 PCR Not Detected (NotDetected); Parainfluenza Virus 2 PCR Not Detected (NotDetected); Parainfluenza Virus 3 PCR Not Detected (NotDetected); Parainfluenza Virus 4 PCR Not Detected (NotDetected); Respiratory Syncytial VirusPCR Not Detected (NotDetected); Rhinovirus/Enterovirus PCR Not Detected (NotDetected)
[2020-11-03] MEDS: PIPERACILLIN/TAZOBACTAM 3.375 GM in DEXTROSE 5% 100 ML IV SCH (13:20)
[2020-11-03] MEDS: NOVASOURCE RENAL 2.0 CAL 1000ML BAG NG SCH (13:21)
[2020-11-03] MEDS: ASPIRIN 81 MG CHEW NG SCH (13:21)
[2020-11-03 19:08] LABS: CoV2 Total Antibody Positive (Negative)
[2020-11-03] MEDS ORDERED: VANCOMYCIN CONSULT ACTIVE PRN (19:37)
[2020-11-03] MEDS ORDERED: VANCOMYCIN HCL 1,250 MG in SODIUM CHLORIDE 0.9% 250 ML IV ONE (19:45)
[2020-11-03] MEDS: HEPARIN SOD 5,000 UNIT/0.5 ML VIAL SQ SCH (20:19)
[2020-11-04] MEDS: PIPERACILLIN/TAZOBACTAM 3.375 GM in DEXTROSE 5% 100 ML IV SCH ×2 (01:28→13:29)
[2020-11-04] MEDS: TUBE FEEDING WATER FLUSH NG SCH ×5 (04:19→18:59)
[2020-11-04 05:19] LABS: Hematocrit (blood only) 26.6 % (37-47); Hemoglobin 8.6 g/dL (12.0-16.0); Mean Corpuscular Hemoglobin 28.7 pg (25-34); Mean Corpuscular Hgb Conc 32.3 g/dL (32-36); Mean Corpuscular Volume 88.7 fL (80-100); Mean Platelet Volume 10.7 fL (7.4-10.4); Platelet Count 374 K/uL (130-400); RDW Coefficient of Variation 18.3 % (11.5-14.5); RDW Standard Deviation 57.7 fL (36.4-46.3); White Blood Count 21.97 K/uL (4.8-10.8)
[2020-11-04 05:44] LABS: Basophils # (auto) 0.05 K/uL (0-0.2); Basophils % (auto) 0.2 %; Dohle Bodies 1+; Eosinophils # (auto) 1.03 K/uL (0-0.5); Eosinophils % (auto) 4.7 %; Immature Granulocytes # (auto) 1.07 K/uL (0.00-0.02); Immature Granulocytes % (auto) 4.9 %; Lymphocytes % (auto) 5.9 %; Monocytes % (auto) 6.4 %; Neutrophils # (auto) 17.12 K/uL (1.4-6.5); Neutrophils % (auto) 77.9 %; Rouleaux 1+; Toxic Vacuolation 1+
[2020-11-04 06:11] LABS: BUN Creatinine Ratio 18.5 (10-20); C Reactive Protein 34.1 mg/dl (0-0.29); Calcium 8.7 mg/dl (8.5-10.1); Creatinine Clr Calc Pharmacy 12.6 ml/min; Est GFR (African American) 17.4 ml/min; Magnesium 2.2 mg/dl (1.8-2.4); Phosphorus 2.4 mg/dl (2.5-4.9); Potassium 3.8 mmol/L (3.5-5.1)
[2020-11-04] MEDS ORDERED: SODIUM PHOSPHATE 3 MMOL/1 ML INFUSION IV STA (08:30)
--- NOTE | 2020-11-04 08:30 | Critical Care Progress Note ---
Date of Service November 04, 2020 Assessment & Plan (1) Pneumonia due to 2019 novel coronavirus: Plan: Zenobia Suero is a 75 yo female with PMHx significant for HTN and anxiety who was admitted on 10/10 with COVID-19 pneumonia. She was transferred to the ICU on 10/11. Required intubation, initiation of vasopressors for shock, ARDS, as well as acute renal failure requiring initiation of hemodialysis. Extubated on 10/25 but remains dialysis-dependent; s/p Permcath placement on 10/31. Also has vocal cord paralysis and may ultimately need PEG tube placement. Patient was changed to tele status on 11/01 but required upgrade to ICU status on 11/02 for worsening respiratory status and persistent need for vasopressors associated with dialysis. NEURO: CAM-ICU negative. Required extremely high doses of sedatives while intubated and has successfully been weaned from high-dose Narcotics. - continue Clonazepam 0.25 mg daily PRN and Oxycodone 5 mg Q6H PRN (although patient currently not needing them) CARDIO: Hypotension, in context of COVID/ARDS and regular dialysis. No signs of sepsis. Improves with Levophed but does continue to require this after dialysis. Currently still on Midodrine. - Continue Midodrine 5 mg PO TID and Levophed as needed, goal MAP >65 PULM: Acute hypoxemic respiratory failure due to COVID-19 PNA. S/p high-dose DEXA ARDS. Also had chest tube placed, which was removed on 10/26 with residual pneumomediastinum that will resolve with time. Lastly she has evidence of vocal cord paralysis based on speech therapy evaluation. ENT consulted and did not feel that intervention is required at this time. Now with worsening respiratory status that is likely due to post-inflammatory/fibrotic pulmonary changes vs superimposed bacterial infection. - Currently has adequate oxygen saturation with high-flow NC at 50L/min at 65% FiO2 - Patient is DNI and will not be intubated in setting of further respiratory decompensation - Continue flutter valve and incentive spirometer if tolerated - Patient will need ongoing speech therapy as well as ENT follow-up. ID: Completed 5 days of Azithromycin and Rocephin for signs of superimposed bacterial pneumonia. Also received Tocilizumab. Patient has up-trending WBC/CRP and worsening respiratory status, likely due to post-inflammatory/fibrotic pulmonary changes and intermittent hypotension associated with dialysis. However we cannot exclude superimposed bacterial pneumonia. - currently has low-grade fevers - respiratory BioFire panel negative and COVID-19 IgM/IgG positive - suggestive of resolved COVID-19 infection - will continue broad-spectrum abx with Vanco/Zosyn for now RENAL: ARF likely due to ATN. Remains anuric and is dialysis-dependent; s/p Permcath placement by Vascular surgery in R IJ on 10/31. - trend electrolytes, renal replacement and dialysis per nephrology - will hold off on dialysis until tomorrow GI: Small bore feeding tube placed at bedside on 10/27. - Continue tube feeds - GI consulted - recommends continuing NG tube feeds for now and will hold off on PEG tube, pending improvement in respiratory status ENDOCRINE: - Glycemic control per ICU HEME-ONC: Stable anemia - likely anemia of chronic disease. - Venofer per Nephrology - trend CBC VTE ppx: Heparin 5000 units SQ Q12H Diet: NPO, continue tube feeds CODE STATUS: DNR/DNI DISPO: ICU. Patient remains critically ill with a guarded prognosis. She is currently DNR/DNI. Appreciate assistance from palliative care to assess patient/family goals of care. Thank you for allowing us to be part of this patient's care. Please refer to Dr. Prajapati's documentation for any further recommendations. (2) Acute respiratory failure with hypoxemia: (3) Acute kidney injury: (4) Pneumomediastinum: (5) Diarrhea: Admission and Anticipated Discharge Date Admission Date: October 10, 2020 Supervising Physician Co-Signing Physician Notes Dr. Frias was resident physician during care of patient. I separately evaluated patient for diaz portions of the history and the exam. I was present during the critical portion of medical decision making, and I discussed the case with the resident. I generally agree with the findings and plan. Continued hypoxic respiratory failure, bio fire negative as of yesterday on broad-spectrum antibiotics for febrile illness, blood cultures negative to date. Remains critically ill Subjective No acute events overnight. High-flow was weaned from 80% --> 65% FiO2. Vanco added yesterday evening. She was afebrile to 38.1C yesterday evening. Dialysis scheduled for tomorrow. Review of Systems Review of Systems: Denies fever/chills, chest pain, palpitations, SOB, N/V, abdominal pain, rash. Physical Exam Physical Exam: General: A+Ox3. NAD. Cooperative. Frail-appearing. HEENT: Atraumatic, normocephalic. Pulm: Diminished lung sounds bilaterally. -wheezes, -rales, -rhonchi. S ymmetrical chest rise. No increase work of breathing. No respiratory distress. Cardiac: RRR, -mrg. Radial pulses intact and symmetrical. No LE edema. Abdominal: soft, non-tender, non-distended, BS x 4 Skin: warm, dry, no rash Results & Data Results & Data ([facility]) Vital Signs (Past 12 Hours) Vital Signs Temp Pulse Pulse Resp BP Pulse Ox 11/04/20 08:13 114 H 22 80/65 L 94 11/04/20 08:00 111 H 11/04/20 07:43 109 H 23 111/80 94 11/04/20 07:13 110 H 20 123/61 93 11/04/20 07:02 114 H 20 96 11/04/20 06:13 106 H 15 114/68 95 11/04/20 05:43 106 H 17 125/67 95 11/04/20 05:38 36.7 C 11/04/20 05:13 108 H 20 109/55 L 94 11/04/20 04:43 109 H 20 108/59 L 93 11/04/20 04:13 107 H 19 110/49 L 94 11/04/20 03:43 108 H 21 121/54 L 94 11/04/20 03:35 110 H 18 94 11/04/20 03:13 110 H 21 125/56 L 94 11/04/20 02:43 108 H 25 H 112/55 L 95 11/04/20 02:13 103 H 24 111/57 L 96 11/04/20 01:43 104 H 27 H 123/64 97 11/04/20 01:13 99 H 22 107/54 L 97 11/04/20 01:00 36.7 C 11/04/20 00:43 103 H 21 111/59 L 96 11/04/20 00:32 106 H 18 94 11/04/20 00:13 103 H 23 108/62 95 11/03/20 23:45 100 H 11/03/20 23:43 101 H 24 111/60 93 11/03/20 23:13 106 H 24 105/64 94 11/03/20 22:43 100 H 16 117/55 L 98 11/03/20 22:13 97 H 30 H 121/66 98 11/03/20 22:05 36.6 C 11/03/20 21:43 100 H 31 H 122/54 L 96 11/03/20 21:13 101 H 18 122/63 96 11/03/20 20:43 99 H 19 102/76 94 Critical Care Time I have personally spent 35 minutes of critical care time in the direct management of this patient. This is a life/limb threatening event. This includes time spent evaluating patient, direct bedside care, chart review, placing orders, interpretation of diagnostic studies, discussion with consultants, patient, and/or family members regarding treatment decisions, as well as other required patient management activities. This time is exclusive of all separately billable procedures, and teaching time and separate from and in addition to any other critical care service time. Resident Activity Tracking Resident Involvement: Resident Care Provided Care Provided: Adult [facility] Medicine
[2020-11-04] MEDS: IRON SUCROSE 200 MG in 0.9 % SODIUM CHLORIDE 100 ML IV SCH (08:31)
[2020-11-04] MEDS: HEPARIN SOD 5,000 UNIT/0.5 ML VIAL SQ SCH ×2 (08:32→20:19)
[2020-11-04] MEDS: ESCITALOPRAM OXALATE ORAL SOLN 20 MG/20 ML UDP PO SCH (08:32)
[2020-11-04] MEDS: MIDODRINE HCL 2.5 MG TAB PO SCH ×3 (08:32→16:23)
[2020-11-04] MEDS ORDERED: SODIUM PHOSPHATE 15 MMOL in SODIUM CHLORIDE 0.9% 250 ML IV ONE (09:00)
--- NOTE | 2020-11-04 09:45 | Billing Data ---
Date of Service November 04, 2020 Coding Level of Care Code Critical Care mins
--- NOTE | 2020-11-04 09:57 | XRay Report ---
SINGLE VIEW CHEST CLINICAL HISTORY: Covid pneumonia. FINDINGS: An AP, portable, upright chest radiograph is compared to study dated 11/02/2020. Correlation is made with chest CT dated 10/27/2020. The examination is degraded by portable technique and patient rotation. An enteric tube and a right internal jugular central venous catheter are unchanged in posi tion. The heart is top normal for projection noting atherosclerotic calcification of the thoracic ao rta. Multifocal airspace consolidation is again seen throughout both lungs, similar to the 11/02/2020 examination. No large pleural effusion is identified. No definite pneumothorax is seen. The skeletal structures are osteopenic. The bony thorax is grossly intact. IMPRESSION: 1. Multifocal airspace consolidation is similar to 11/02/2020. 2. Stable lines and tubes. ACT 112: Negative or not required by law. Electronically signed by: Raf Mckeon M.D. 11/04/2020 9:55 AM
--- NOTE | 2020-11-04 10:17 | Nephrology Progress Note ---
Date of Service November 04, 2020 Assessment & Plan (1) Acute kidney injury: (2) Hypertension: (3) Malnutrition: (4) Anemia: Plan: 75-year-old female admitted with COVID pneumonia, intubated for acute respiratory failure.. 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 Received Toclizumab 10/13/20. Completed Dexamethasone therapy. Remdesivir was stopped after 2 doses due to LENNOX, elevated LFT's. completed azithromycin. Respiratory status improved and she was extubated on 10/27/2020. Has been having dialysis for almost last 3 weeks with no sign of renal recovery yet. Had rt IJ TDC on 10/31/20 and femoral catheter removed. Overall improved and was ready to go to LTAC 3 days ago however again spiked fever with increased pulmonary infiltrate, concern for post COVID pneumonia, currently on vancomycin and Zosyn. --Continue IHD while monitoring for renal recovery. Plan for dialysis tomorrow. --epogen 85228 units with HD given on 11/02/2020, on Venofer 200 mg daily. --dose medications for GFR less than 10 Will follow Admission and Anticipated Discharge Date Admission Date: October 10, 2020 Sumeet Fregoso was awake, alert, looked better today, denied any specific concern. Remained anuric. Had 2.5 L UF yesterday but required pressor during dialysis. Review of Systems Review of Systems: detailed review system was unremarkable except mentioned above. Physical Exam Constitutional: + ill appearing; no acute distress Respiratory: Auscultation: + diminished lung sounds; no crackles and no wheezes Cardiovascular: RRR, no murmur, no edema Neurologic: moves all extremities and awake; not confused Psychiatric: A+Ox3, euthymic affect Affect: + tearful affect Results & Data ([facility]) Vital Signs (Past 12 Hours) Vital Signs Temp Pulse Pulse Resp BP Pulse Ox 11/04/20 09:29 37.8 C H 11/04/20 09:13 115 H 23 109/66 92 11/04/20 08:13 114 H 22 80/65 L 94 11/04/20 08:00 111 H 11/04/20 07:43 109 H 23 111/80 94 11/04/20 07:13 110 H 20 123/61 93 11/04/20 07:02 114 H 20 96 11/04/20 06:13 106 H 15 114/68 95 11/04/20 05:43 106 H 17 125/67 95 11/04/20 05:38 36.7 C 11/04/20 05:13 108 H 20 109/55 L 94 11/04/20 04:43 109 H 20 108/59 L 93 11/04/20 04:13 107 H 19 110/49 L 94 11/04/20 03:43 108 H 21 121/54 L 94 11/04/20 03:35 110 H 18 94 11/04/20 03:13 110 H 21 125/56 L 94 11/04/20 02:43 108 H 25 H 112/55 L 95 11/04/20 02:13 103 H 24 111/57 L 96 11/04/20 01:43 104 H 27 H 123/64 97 11/04/20 01:13 99 H 22 107/54 L 97 11/04/20 01:00 36.7 C 11/04/20 00:43 103 H 21 111/59 L 96 11/04/20 00:32 106 H 18 94 11/04/20 00:13 103 H 23 108/62 95 11/03/20 23:45 100 H 11/03/20 23:43 101 H 24 111/60 93 11/03/20 23:13 106 H 24 105/64 94 11/03/20 22:43 100 H 16 117/55 L 98 PG Care Time/CCT Total # of Minutes Spent Total Time Spent with Patient: Total time spent is greater than 50% in coordination of care (as documented) at patient's floor/unit and/or counseling patient: Coding Level of Care Code 14081 Subseq Hosp Care Lvl 3 Diagnoses Acute kidney injury N17.9 Hypertension I10 Malnutrition E46 Anemia D64.9
--- NOTE | 2020-11-04 10:28 | Ears,Nose,Throat Progress Note ---
Date of Service November 04, 2020 Assessment & Plan (1) Hoarseness of voice: Plan: Deteriorating health status now on high flow O2. DNR status. Still hold on laryngoscopy. Admission and Anticipated Discharge Date Admission Date: October 10, 2020 Subjective Her voice is hoarse. Feeding tube in place. Worsening status. Physical Exam Constitutional: + ill appearing Eyes: PERRL, conjunctivae normal, anicteric sclerae ENMT: Nose: + external nose abnormality (Feeding tube in place) Neck: trachea midline, no thyromegaly Results & Data ([facility]) Vital Signs (Past 12 Hours) Vital Signs Temp Pulse Pulse Resp BP Pulse Ox 11/04/20 09:29 37.8 C H 11/04/20 09:13 115 H 23 109/66 92 11/04/20 08:13 114 H 22 80/65 L 94 11/04/20 08:00 111 H 11/04/20 07:43 109 H 23 111/80 94 11/04/20 07:13 110 H 20 123/61 93 11/04/20 07:02 114 H 20 96 11/04/20 06:13 106 H 15 114/68 95 11/04/20 05:43 106 H 17 125/67 95 11/04/20 05:38 36.7 C 11/04/20 05:13 108 H 20 109/55 L 94 11/04/20 04:43 109 H 20 108/59 L 93 11/04/20 04:13 107 H 19 110/49 L 94 11/04/20 03:43 108 H 21 121/54 L 94 11/04/20 03:35 110 H 18 94 11/04/20 03:13 110 H 21 125/56 L 94 11/04/20 02:43 108 H 25 H 112/55 L 95 11/04/20 02:13 103 H 24 111/57 L 96 11/04/20 01:43 104 H 27 H 123/64 97 11/04/20 01:13 99 H 22 107/54 L 97 11/04/20 01:00 36.7 C 11/04/20 00:43 103 H 21 111/59 L 96 11/04/20 00:32 106 H 18 94 11/04/20 00:13 103 H 23 108/62 95 11/03/20 23:45 100 H 11/03/20 23:43 101 H 24 111/60 93 11/03/20 23:13 106 H 24 105/64 94 11/03/20 22:43 100 H 16 117/55 L 98
--- NOTE | 2020-11-04 10:58 | Pharmacy Report ---
Pharmacy Abx Dose Short Note - Date of Service November 04, 2020 - Assessment & Plan Assessment 75 year old F receiving vancomycin/zosyn for empiric treatment possible HAP vs. alternative source. Patient initially started on zosyn yesterday, vancomycin was added despite negative MRSA nasal swab as patient continued to be febrile and source not identified. White count remains elevated although has been elevated since admission is trending upward (patient completed course of high dose steroi ds), Tmax yesterday 38.1. Patient has been receiving HD although has only been able to tolerate short runs. HD yesterday, no plans for HD today. Zosyn dosed appropriately for dialysis. Day #2 of antimicrobial therapy. Plan Vancomycin * Random level this AM 26.6 mcg/mL, no HD today therefore will not redose today * Continue to dose by levels * Random level in AM to assist with dosing as patient may have HD tomorrow * Goal trough level 15-20 mcg/mL Pharmacy will continue to follow and will adjust dose/frequency as necessary. Thank you.
[2020-11-04] MEDS: ASPIRIN 81 MG CHEW NG SCH (13:28)
[2020-11-04 15:31] LABS: BUN Creatinine Ratio 19.8 (10-20); Calcium 8.9 mg/dl (8.5-10.1); Creatinine Clr Calc Pharmacy 10.2 ml/min; Est GFR (African American) 13.5 ml/min; Est GFR (Non-African American) 11.7 ml/min; Magnesium 2.3 mg/dl (1.8-2.4)
[2020-11-04] MEDS: NOVASOURCE RENAL 2.0 CAL 1000ML BAG NG SCH (16:23)
--- NOTE | 2020-11-04 16:37 | Hospitalist Progress Note ---
Date of Service November 04, 2020 Assessment & Plan (1) Acute respiratory failure with hypoxemia: Plan: Acute respiratory failure with hypoxemia 2/2 Covid pneumonia complicated by renal failure, off airborne but with escalation of oxygen to vapotherm, now on AGP precautions restarted on Zosyn 11/02/20, procalcitonin 7.7 on 11/03, will added vancomycin in case this is a line associated gram-positive infection mrsa negative, CRP is 31 11/03 bio fire -11/03 Covid antibodies are present and serology discussed if continuation or re activation of Covid pneumonia due to appearance of CXR and oxygen requirement bio fire makes this less likely however exact etiology of her profound oxygen requirements still unclear we will continue to treat with antibiotics for aspiration pneumonia could be pneumonitis could be volume overload. Patient was dialyzed on 11/03 with the help of pressors to hopefully remove fluid and improve her oxygenation with modest results -was on extended Decadron protocol, last dose was 10/30 question if we should reengage in dexamethasone to reduce inflammatory changes in lungs if this is pneumonitis however this could also impede treatment of bacterial infections Date of intubation: 10/16/2020- extubated 10/25/20, remains on wall high flow,tapering oxygen as needed Patient completed prior 5-day course of azithromycin/Rocephin for superimposed infection, no additional antibiotics at this time Remdesivir - first dose given on 10/10. Received dose #2 on 10/11. - Due to development of LENNOX and transaminitis the remdesivir was stopped after 2nd dose. -s/p Tocilizumab - 10/13/20. off of negative pressure isolation, remains in ICU due to complexity of care, needing Levophed intermittently, especially with HD blood cultures obtained on AGB precautions, discussed with infection control do not feel continuation of covid infection (2) Severe sepsis: Plan: -2nd to COVID-19 pneumonia. felt to be resolved ? recurrence with tachycardia, lower bp and hypoxia -Intermittent pressor support during dialysis despite midodrine Patient on vancomycin with Zosyn therapy for elevated pro-Moustapha persistent infectious symptomology and pulmonary infiltrates (3) Acute kidney injury: Plan: -ATN due to COVID-19 (and/or remdesivir) with resulting severe acute renal failure. -Temporary HD catheter placed 10/15. -tunneled HD catheter placed 10/31/2020 as she is not showing signs of recovery - rehab wants to have dialysis prior to transfer, anticipated for 11/02/20 Nephrology has been following, Appreciate nephrology assistance (4) Pneumonia due to 2019 novel coronavirus: Plan: - completed treatment, cxr changes 11/02 however bio fire negative immunoglobulins positive for immunity (5) Bacterial pneumonia: Plan: s/p ceftriaxone + azithromycin x 5 days earlier this stay. Now on Zosyn and Vanco (6) Hypotension: Plan: 2nd to severe sepsis, COVID-19, medications (propofol), etc. Continue levophed PRN, with HD, Midodrine 5mg TID (7) Elevated troponin: Plan: -Peak trop 0.154. -2nd to myocardial demand ischemia. Repeat troponin is negative (8) Elevated d-dimer: Plan: -4890 on admission (10/10/20). -LE dopplers negative for DVT b/l. -Did not initially perform CT angiogram due to renal failure (9) Elevated liver enzymes: Plan: -transaminitis 2nd to COVID-19. -ast/alt normalized (10) Fecal occult blood test positive: Plan: -Melanic stools on second day of admission. -Cont PPI for GI prophylaxis. - transfused one unit PRBC on 10/24, (11) Hyponatremia: Plan: -resolved (12) Pneumothorax: Plan: Chest tube placed by critical care team, removed 10/26, no residual PTX Plan: -appreciate ICU and palliative care assistance -family meeting with palliative took place on 10/19 -- patient made DNR, no transfer to tertiary care- re confirmed this on 11/02/20 ICU serivce thinks pt would be LTACH candidate, will need HD, transiently needing Levophed, will likely have PEG tube and tube feeds spoke with patient about this option, she agrees with that option when she is stable Admission and Anticipated Discharge Date Admission Date: October 10, 2020 Subjective pt remains weak and tired she has no abdominal pain, low grade temps, no focal abdominal pain, neg blood cultures, on vancomycin and zosyn Review of Systems Review of Systems: mild distress and moderate fatigue no headache, no visual changes has some hoarse voice minor chest pain at the cath insertion site Continues with moderate shortness of breath, no abdominal pain, nausea or vomiting, diarrhea or constipation no dysuria, hematuria or frequency no focal joint pain or peripheral swelling no back pain, CVA tenderness or radicular pain no bruising, epistaxis on 11/02 associated with CPAP now resolved no focal signs of weakness or numbness or altered sensation overall very weak Extreme fatigue Physical Exam Physical Exam: The patient appeared fatigued and now looking chronicially ill Vital signs as documented. Head exam is normocephalic atraumatic Neck is with JVD, thyromegaly, or carotid bruits. Lungs remain coarse bilaterally Cardiac exam, Rhythm is regular.. No murmurs, rubs or gallops. dialysis cath in the right anterior chest Abdominal exam reveals normal bowel sounds, soft non tender, no masses Extremities are 1+ edematous and both pedal pulses are present Neurologic exam is alert and oriented, extremely fatigued no focal loss of strength or sensation Skin is without bruises or rashes Psychologically is without concerns for anxiety or depression Results & Data Results & Data ([facility]) Vital Signs (Past 12 Hours) Vital Signs Temp Pulse Pulse Resp BP Pulse Ox 11/04/20 15:44 102 H 20 93 11/04/20 14:13 109 H 25 H 141/79 H 91 11/04/20 13:39 99.3 F 11/04/20 13:13 112 H 19 126/86 90 11/04/20 12:13 113 H 29 H 127/77 90 11/04/20 11:13 117 H 27 H 127/85 94 11/04/20 10:51 114 H 20 96 11/04/20 10:13 114 H 30 H 129/69 91 11/04/20 09:29 100.0 F H 11/04/20 09:13 115 H 23 109/66 92 11/04/20 08:13 114 H 22 80/65 L 94 11/04/20 08:00 111 H 11/04/20 07:43 109 H 23 111/80 94 11/04/20 07:13 110 H 20 123/61 93 11/04/20 07:02 114 H 20 96 11/04/20 06:13 106 H 15 114/68 95 11/04/20 05:43 106 H 17 125/67 95 11/04/20 05:38 98.1 F 11/04/20 05:13 108 H 20 109/55 L 94 11/04/20 04:43 109 H 20 108/59 L 93 PG Care Time/CCT Total # of Minutes Spent Total Time Spent with Patient: Total time spent is greater than 50% in coordination of care (as documented) at patient's floor/unit and/or counseling patient: Coding Level of Care Code 24981 Subseq Hosp Care Lvl 3 Diagnoses Acute respiratory failure with hypoxemia J96.01 Severe sepsis A41.9; R65.20 Acute kidney injury N17.9 Pneumonia due to 2019 novel coronavirus U07.1; J12.82 Bacterial pneumonia J15.9 Hypotension I95.9 Elevated troponin R77.8 Elevated d-dimer R79.89 Elevated liver enzymes R74.8 Fecal occult blood test positive R19.5 Hyponatremia E87.1 Pneumothorax J93.9
[2020-11-05] MEDS: PIPERACILLIN/TAZOBACTAM 3.375 GM in DEXTROSE 5% 100 ML IV SCH ×2 (02:17→13:58)
[2020-11-05] MEDS: TUBE FEEDING WATER FLUSH NG SCH ×7 (02:18→23:22)
[2020-11-05] MEDS ORDERED: LIDOCAINE 1% LOCAL 20 ML VIAL ONE (02:40)
[2020-11-05 05:23] LABS: Hemoglobin 8.4 g/dL (12.0-16.0); Mean Corpuscular Hemoglobin 28.3 pg (25-34); Mean Corpuscular Hgb Conc 32.3 g/dL (32-36); Mean Corpuscular Volume 87.5 fL (80-100); Mean Platelet Volume 11.5 fL (7.4-10.4); Nucleated RBC # (auto) 0.06 K/uL (0-0); Nucleated RBC % (auto) 0.3 %; Platelet Count 436 K/uL (130-400); RDW Coefficient of Variation 18.1 % (11.5-14.5); RDW Standard Deviation 56.1 fL (36.4-46.3); Red Blood Count 2.97 M/uL (4.2-5.4); White Blood Count 23.12 K/uL (4.8-10.8)
[2020-11-05 05:43] LABS: Albumin Level 1.4 gm/dl (3.4-5.0); BUN Creatinine Ratio 22.9 (10-20); Creatinine Clr Calc Pharmacy 8.5 ml/min; Est GFR (African American) 10.7 ml/min; Est GFR (Non-African American) 9.3 ml/min; Magnesium 2.1 mg/dl (1.8-2.4); Potassium 3.9 mmol/L (3.5-5.1)
[2020-11-05 05:52] LABS: Albumin Globulin Ratio 0.2 (0.9-2); Bilirubin,Total 0.3 mg/dl (0.2-1); C Reactive Protein 27.1 mg/dl (0-0.29); Globulin 6.3 gm/dl (2.5-4.0); Phosphorus 5.7 mg/dl (2.5-4.9); Total Protein 7.7 gm/dl (6.4-8.2)
[2020-11-05 06:12] LABS: Basophils % (auto) 0.4 %; Eosinophils # (auto) 1.06 K/uL (0-0.5); Eosinophils % (auto) 4.6 %; Immature Granulocytes # (auto) 1.53 K/uL (0.00-0.02); Immature Granulocytes % (auto) 6.6 %; Lymphocytes # (auto) 1.55 K/uL (1.2-3.4); Lymphocytes % (auto) 6.7 %; Monocytes # (auto) 1.01 K/uL (0.11-0.59); Monocytes % (auto) 4.4 %; Neutrophils # (auto) 17.87 K/uL (1.4-6.5); Neutrophils % (auto) 77.3 %; RBC Morphology Unremarkable
[2020-11-05] MEDS: MIDODRINE HCL 2.5 MG TAB PO SCH ×3 (07:31→16:46)
--- NOTE | 2020-11-05 08:19 | Pharmacy Report ---
Pharmacy Abx Dose Short Note - Date of Service November 05, 2020 - Assessment & Plan Assessment 75 year old F receiving vancomycin/zosyn for treatment of HCAP vs unknown source Day # 3 of antimicrobial therapy. Plan Vancomycin * Random vancomycin level came back at 21.7 mcg/ml this morning * Plan for dialysis today, estimated ~30% removal of vancomycin from dialysis. Estimated level after dialysis closer to 15 mcg/ml * Plan to give supplemental dose of vancomycin post dialysis today to maintain estimated peak of ~30 mcg/ml * Will give 750 mg x 1 after dialysis * Unclear plan for dialysis moving forward, may order level for tomorrow to reassess Pharmacy will continue to follow and will adjust dose/frequency as necessary. Thank you.
[2020-11-05] MEDS: IRON SUCROSE 200 MG in 0.9 % SODIUM CHLORIDE 100 ML IV SCH (08:35)
[2020-11-05] MEDS: ESCITALOPRAM OXALATE ORAL SOLN 20 MG/20 ML UDP PO SCH (08:35)
[2020-11-05] MEDS: HEPARIN SOD 5,000 UNIT/0.5 ML VIAL SQ SCH ×2 (08:35→20:49)
[2020-11-05] MEDS ORDERED: EPOETIN ALFA 10,000 UNITS/ML VIAL IV ONE (09:00)
--- NOTE | 2020-11-05 10:40 | Nephrology Progress Note ---
Date of Service November 05, 2020 Assessment & Plan (1) Acute kidney injury: Plan: * Baseline creatinine <1 mg/dL * LENNOX c/w ATN * US without obstruction * Urinalysis 10/15 negative for cellular casts * HD initiated 10/15/20. R IJ THC placed 10/31/20 * Remains anuric. No evidence of renal recovery at this time. Will provide HD today and attempt 3 L UF. Orders were discussed w/ HD RN this am (2) Anemia: Plan: * Day #4/5 IV Venofer * Will provide AMARILYS w/ HD today (3) Pneumonia due to 2019 novel coronavirus: Plan: * Received Toclizumab 10/13/20 * Completed Dexamethasone therapy * Remdesivir held due to LENNOX, elevated LFT's * Prognosis guarded - COVID pneumonia resulted in mechanical ventilation, pressor support, LENNOX requiring HD * Patient now has HAP and is on antibiotic therapy. Respiratory status remains tenuous and kidney function has not yet recovered * DNR/DNI status (4) Hypotension: Plan: * SBP has been 105 - 150 mmHg last 24 hours * On midodrine 5 mg po TID Admission and Anticipated Discharge Date Admission Date: October 10, 2020 Subjective Mrs. Suero was seen in the ICU this morning. She is on midodrine 5 mg po TID for blood pressure support and remains on high flow oxygen at 50 L/min Review of Systems Respiratory: + dyspnea Cardiovascular: no chest pain Gastrointestinal: no abdominal pain Physical Exam Constitutional: + ill appearing Eyes: PERRL Respiratory: Auscultation: + crackles Cardiovascular: Rate/Rhythm: + tachycardic Extremities: no edema Gastrointestinal (Abdomen): Inspection/Auscultation: + hypoactive bowel sounds Results & Data ([facility]) Vital Signs (Past 12 Hours) Vital Signs Temp Pulse Pulse Pulse Resp BP Pulse Ox 11/05/20 10:15 113 H 105/58 L 11/05/20 10:00 99 H 115/68 11/05/20 09:45 116 H 123/72 11/05/20 09:21 109 H 126/80 11/05/20 09:17 36.5 C 109 H 11/05/20 07:05 104 H 24 94 11/05/20 05:33 36.5 C 11/05/20 05:13 107 H 25 H 156/82 H 89 L 11/05/20 04:13 108 H 38 H 153/84 H 89 L 11/05/20 03:13 105 H 24 147/83 H 92 11/05/20 02:21 104 H 18 92 11/05/20 02:13 105 H 26 H 129/77 88 L 11/05/20 01:13 110 H 36 H 148/65 H 90 11/05/20 00:13 103 H 19 133/82 96 11/05/20 00:00 102 H 11/04/20 23:21 21 L 19 93 11/04/20 23:13 102 H 20 114/73 97 Laboratory Results Laboratory Tests 11/05/20 11/05/20 04:11 04:11 WBC 23.12 H Hgb 8.4 L Hct 26.0 L Plt Count 436 H Sodium 137 Potassium 3.9 Chloride 102 Carbon Dioxide 23 BUN 101 H Creatinine 4.42 H D Glucose 139 H Calcium 9.0 Phosphorus 5.7 H Magnesium 2.1 Total Bilirubin 0.3 AST 87 H ALT 176 H Alkaline Phosphatase 535 H C-Reactive Protein 27.10 H Albumin 1.4 L PG Care Time/CCT Total # of Minutes Spent Total Time Spent with Patient: Total time spent is greater than 50% in coordination of care (as documented) at patient's floor/unit and/or counseling patient: Coding Level of Care Code 51850 Subseq Hosp Care Lvl 3 Diagnoses Acute kidney injury N17.9 Pneumonia due to 2019 novel coronavirus U07.1; J12.82 Hypotension I95.9 Anemia D64.9
[2020-11-05] MEDS: NOREPINEPHRINE/D5W 8 MG/508 ML BAG IV SCH (10:44)
--- NOTE | 2020-11-05 11:04 | Critical Care Progress Note ---
Date of Service November 05, 2020 Assessment & Plan (1) Pneumonia due to 2019 novel coronavirus: Plan: Zenobia Suero is a 75 yo female with PMHx significant for HTN and anxiety who was admitted on 10/10 with COVID-19 pneumonia. She was transferred to the ICU on 10/11. Required intubation, initiation of vasopressors for shock, ARDS, as well as acute renal failure requiring initiation of hemodialysis. Extubated on 10/25 but remains dialysis-dependent; s/p Permcath placement on 10/31. Also has vocal cord paralysis and may ultimately need PEG tube placement. Patient was changed to tele status on 11/01 but required upgrade to ICU status on 11/02 for worsening respiratory status and persistent need for vasopressors associated with dialysis. NEURO: CAM-ICU negative. Required extremely high doses of sedatives while intubated and has successfully been weaned from high-dose Narcotics. - continue Clonazepam 0.25 mg daily PRN and Oxycodone 5 mg Q6H PRN (although patient currently not needing them) CARDIO: Hypotension, in context of COVID/ARDS and regular dialysis. No signs of sepsis. Improves with Levophed but does continue to require this after dialysis. Currently still on Midodrine. - Continue Midodrine 5 mg PO TID and Levophed as needed, goal MAP >65 PULM: Acute hypoxemic respiratory failure due to COVID-19 PNA. S/p high-dose DEXA ARDS. Also had chest tube placed, which was removed on 10/26 with residual pneumomediastinum that will resolve with time. Lastly she has evidence of vocal cord paralysis based on speech therapy evaluation. ENT consulted and did not feel that intervention is required at this time. Now with worsening respiratory status that is likely due to post-inflammatory/fibrotic pulmonary changes vs superimposed bacterial infection. - Currently has adequate oxygen saturation with high-flow NC at 50L/min at 65% FiO2 - Patient is DNI and will not be intubated in setting of further respiratory decompensation - Continue flutter valve and incentive spirometer if tolerated - Patient will need ongoing speech therapy as well as ENT follow-up. ID: Completed 5 days of Azithromycin and Rocephin for signs of superimposed bacterial pneumonia. Also received Tocilizumab. Patient does have ongoing diarrhea although is negative for c. diff on 10/30. Currently afebrile. Patient has up-trending WBC/CRP and worsening respiratory status, likely due to post- inflammatory/fibrotic pulmonary changes and intermittent hypotension associated with dialysis. However we cannot exclude superimposed bacterial pneumonia. - respiratory BioFire panel negative and COVID-19 IgM/IgG positive - suggestive of resolved COVID-19 infection - will continue broad-spectrum abx with Vanco/Zosyn for now RENAL: ARF likely due to ATN. Remains anuric and is dialysis-dependent; s/p Permcath placement by Vascular surgery in R IJ on 10/31. - trend electrolytes, renal replacement and dialysis per nephrology GI: Small bore feeding tube placed at bedside on 10/27. - Continue tube feeds - GI consulted - recommends continuing NG tube feeds for now and will hold off on PEG tube, pending improvement in respiratory status ENDOCRINE: - Glycemic control per ICU HEME-ONC: Stable anemia - likely anemia of chronic disease. - Venofer per Nephrology - trend CBC VTE ppx: Heparin 5000 units SQ Q12H Diet: NPO, continue tube feeds CODE STATUS: DNR/DNI DISPO: We have reached maximum therapy for this patient. Still hopeful for improvement however she is stable for downgrade out of ICU. (2) Acute respiratory failure with hypoxemia: (3) Acute kidney injury: (4) Pneumomediastinum: (5) Diarrhea: Admission and Anticipated Discharge Date Admission Date: October 10, 2020 Subjective No overnight events Physical Exam Physical Exam: General: Alert. nontoxic. Skin: Warm, dry, Head: Atraumatic Ears, nose, mouth and throat: airway patent, high flow nasal cannula present Cardiovascular: Normal peripheral perfusion Respiratory: no respiratory distress Gastrointestinal: Non distended Musculoskeletal: No deformity Results & Data Results & Data ([facility]) Vital Signs (Past 12 Hours) Vital Signs Temp Pulse Pulse Pulse Resp BP Pulse Ox 11/05/20 10:45 117 H 107/62 11/05/20 10:37 118 H 22 100 11/05/20 10:30 122 H 88/47 L 11/05/20 10:15 113 H 105/58 L 11/05/20 10:00 99 H 115/68 11/05/20 09:45 116 H 123/72 11/05/20 09:21 109 H 126/80 11/05/20 09:17 36.5 C 109 H 11/05/20 07:05 104 H 24 94 08/28/21 05:33 36.5 C 11/05/20 05:13 107 H 25 H 156/82 H 89 L 11/05/20 04:13 108 H 38 H 153/84 H 89 L 11/05/20 03:13 105 H 24 147/83 H 92 11/05/20 02:21 104 H 18 92 11/05/20 02:13 105 H 26 H 129/77 88 L 11/05/20 01:13 110 H 36 H 148/65 H 90 11/05/20 00:13 103 H 19 133/82 96 11/05/20 00:00 102 H 11/04/20 23:21 21 L 19 93 11/04/20 23:13 102 H 20 114/73 97 Coding Level of Care Code 95041 Subseq Hosp Care Lvl 3 Diagnoses Pneumonia due to 2019 novel coronavirus U07.1; J12.82 Acute respiratory failure with hypoxemia J96.01 Acute kidney injury N17.9 Pneumomediastinum J98.2 Diarrhea R19.7
[2020-11-05] MEDS: ASPIRIN 81 MG CHEW NG SCH (12:27)
[2020-11-05] MEDS: NOVASOURCE RENAL 2.0 CAL 1000ML BAG NG SCH (12:30)
[2020-11-05] MEDS ORDERED: CASPOFUNGIN 70 MG in SODIUM CHLORIDE 0.9% 250 ML IV ONE (15:30)
[2020-11-05] MEDS ORDERED: VANCOMYCIN HCL 750 MG in SODIUM CHLORIDE 0.9% 250 ML IV ONE (16:00)
[2020-11-05] MEDS ORDERED: VANCOMYCIN HCL 500 MG in 0.9 % SODIUM CHLORIDE 100 ML IV ONE (16:00)
--- NOTE | 2020-11-05 16:12 | CT Scan Report ---
CT SCAN OF THE CHEST WITHOUT IV CONTRAST CLINICAL HISTORY: Follow-up Covid pneumonia. COMPARISON STUDY: Chest x-ray dated 11/04/2020. Chest CT dated 10/27/2020. TECHNIQUE: CT scan of the thorax was performed from the thoracic inlet to the upper abdomen. Images are reviewed in the axial, sagittal, and coronal planes. IV contrast was not administered for this ex amination as per the referring clinician. A dose lowering technique was utilized adhering to the morgan Barclay. The examination is degraded by motion artifact. CT DOSE: 163.24 mGy.cm FINDINGS: Thyroid: Atrophic and heterogeneous. Thoracic aorta: There is mild atherosclerotic calcification of the thoracic aorta, which is normal in caliber and demonstrates standard 3-vessel arch anatomy. Heart: A right internal jugular central venous catheter is in place. The heart is top normal in size and without pericardial effusion. There are scattered coronary artery calcifications. Lungs and pleural spaces: Groundglass consolidation is seen diffusely throughout both lungs. There is more focal airspace consolidation in the right upper lobe. A thick-walled and multiloculated cavitar y collection in the right upper lobe is new from 10/27/2020 and measures approximately 6.5 x 5 x 4.5 c m as seen on image #73. This contains internal fluid and debris. A cyst in the left upper lobe on doug ge #51 has increased in size from previous, measuring up to 2.1 cm. There is no pleural effusion. Sec retions/debris are noted within the trachea. Bronchiectasis is noted at the lung bases. There is no p neumothorax. Mediastinum: There are numerous mildly enlarged mediastinal lymph nodes. A precarinal node measures u p to 12 mm in short axis. Pneumomediastinum has resolved from previous. Sonya: Not well assessed without IV contrast. Axillae: There is no axillary lymphadenopathy. Upper abdomen: An enteric tube is in place. This extends below the diaphragm in the stomach. Partiall y visualized upper abdominal viscera is within normal limits. Skeletal structures: The skeletal structures are osteopenic. Arthritic changes noted in the shoulders , and spondylotic change is seen throughout the thoracic spine. No lytic or blastic bony lesions are seen. IMPRESSION: 1. Motion compromised examination. 2. Diffuse groundglass consolidation is again seen throughout both lungs, greatest at the lung bases and likely corresponding to the reported history of a viral pneumonia. As noted previously, a superim posed bacterial pneumonia, ARDS, pulmonary hemorrhage, and/or edema could appear similar. 3. There is more confluent consolidation in the right upper lobe with a large, multiloculated, and th ick walled cavitary lesion as detailed above. This contains internal fluid/debris and is new from 10/09. This likely represents necrotizing infection/abscess. 4. A cyst in the left upper lobe has increased in size as compared 10/27/2020. 5. Bronchiectasis is present in the lower lobes and suggests underlying fibrosis/interstitial lung di sease. 6. No pleural effusion is identified. 7. Mildly enlarged mediastinal lymph nodes are likely reactive. 8. Additional findings as above. ACT 112: Negative or not required by law. Electronically signed by: Raf Mckeon M.D. 11/05/2020 4:10 PM
--- NOTE | 2020-11-05 16:16 | Hospitalist Progress Note ---
Date of Service November 05, 2020 Assessment & Plan (1) Cavitary lesion of lung: Plan: CT scan from November 05 shows a right lung cavitary lesion which was not present on October 27. 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 (2) Acute respiratory failure with hypoxemia: Plan: Acute respiratory failure with hypoxemia 2/2 Covid pneumonia complicated by renal failure, off airborne but with escalation of oxygen to vapotherm, now on airborne precautions, codey quanterferone sent and will keep isolation restarted on Zosyn 11/02/20, procalcitonin 7.7 on 11/03, will added vancomycin, caspofungin started, 11/03 bio fire -11/03 Covid antibodies are present and serology discussed if continuation or re activation of Covid pneumonia due to appearance of CXR and oxygen requirement bio fire makes this less likely however exact etiology of her profound oxygen requirements still unclear we will continue to treat with antibiotics for aspiration pneumonia could be pneumonitis could be volume overload. Patient was dialyzed on 11/03 with the help of pressors to hopefully remove fluid and improve her oxygenation with modest results -was on extended Decadron protocol, last dose was 10/30 question if we should reengage in dexamethasone to reduce inflammatory changes in lungs if this is pneumonitis however this could also impede treatment of bacterial infections Date of intubation: 10/16/2020- extubated 10/25/20, remains on wall high f low,tapering oxygen as needed Patient completed prior 5-day course of azithromycin/Rocephin for superimposed infection, no additional antibiotics at this time Remdesivir - first dose given on 10/10. Received dose #2 on 10/11. - Due to development of LENNOX and transaminitis the remdesivir was stopped after 2nd dose. -s/p Tocilizumab - 10/13/20. remains in ICU due to hypoxic respiratory failure, complexity of care, needing Levophed intermittently, especially with HD and now lung abscess blood cultures obtained, kristi quaterferone sent on AGB precautions, discussed with infection control do not feel continuation of covid infection (3) Severe sepsis: Plan: -2nd to COVID-19 pneumonia. felt to be resolved ? recurrence with tachycardia, lower bp and hypoxia -Intermittent pressor support during dialysis despite midodrine Patient on vancomycin, Zosyn and caspofungin therapy for elevated pro-Moustapha and concern for pulmonary abscess (4) Acute kidney injury: Plan: -ATN due to COVID-19 (and/or remdesivir) with resulting severe acute renal failure. -Temporary HD catheter placed 10/15. -tunneled HD catheter placed 10/31/2020 as she is not showing signs of recovery Nephrology has been following, Appreciate nephrology assistance (5) Pneumonia due to 2019 novel coronavirus: Plan: - completed treatment, cxr changes 11/02 however bio fire negative immunoglobulins positive for immunity (6) Bacterial pneumonia: Plan: s/p ceftriaxone + azithromycin x 5 days earlier this stay. Now on Zosyn and Vanco and caspofungin (7) Hypotension: Plan: 2nd to severe sepsis, COVID-19, medications (propofol), etc. Continue levophed PRN, with HD, Midodrine 5mg TID (8) Elevated troponin: Plan: -Peak trop 0.154. -2nd to myocardial demand ischemia. Repeat troponin is negative (9) Elevated d-dimer: Plan: -4890 on admission (10/10/20). -LE dopplers negative for DVT b/l. -Did not initially perform CT angiogram due to renal failure (10) Elevated liver enzymes: Plan: -transaminitis 2nd to COVID-19. -ast/alt normalized (11) Fecal occult blood test positive: Plan: -Melanic stools on second day of admission. -Cont PPI for GI prophylaxis. - transfused one unit PRBC on 10/24, (12) Hyponatremia: Plan: -resolved (13) Pneumothorax: Plan: Chest tube placed by critical care team, removed 10/26, no residual PTX Plan: -appreciate ICU and palliative care assistance -family meeting with palliative took place on 10/19 -- patient made DNR, no transfer to tertiary care- re confirmed this on 11/02/20 ICU serivce thinks pt would be LTACH candidate, will need HD, transiently need ing Levophed, will likely have PEG tube and tube feeds spoke with patient about this option, she agrees with that option when she is stable Admission and Anticipated Discharge Date Admission Date: October 10, 2020 Review of Systems Review of Systems: mild distress and moderate fatigue no headache, no visual changes has some hoarse voice minor chest pain at the cath insertion site Continues with moderate shortness of breath, no abdominal pain, nausea or vomiting, diarrhea or constipation no dysuria, hematuria or frequency no focal joint pain or peripheral swelling no back pain, CVA tenderness or radicular pain no bruising, epistaxis on 11/02 associated with CPAP now resolved no focal signs of weakness or numbness or altered sensation overall very weak Extreme fatigue Physical Exam Physical Exam: The patient appeared fatigued and now looking chronicially ill Vital signs as documented. Head exam is normocephalic atraumatic Neck is with JVD, thyromegaly, or carotid bruits. Lungs remain coarse bilaterally tunneled cath site does not look infected Cardiac exam, Rhythm is regular.. No murmurs, rubs or gallops. Abdominal exam reveals normal bowel sounds, soft non tender, no masses Extremities are 1+ edematous and both pedal pulses are present Neurologic exam is alert and oriented, extremely fatigued no focal loss of strength or sensation Skin is without bruises or rashes Psychologically is without concerns for anxiety or depression Results & Data Results & Data ([facility]) Vital Signs (Past 12 Hours) Vital Signs Temp Pulse Pulse Pulse Resp BP BP 11/05/20 13:34 97.7 F 122 H 70/47 L 11/05/20 12:58 11/05/20 12:45 116 H 70/47 L 70/47 L 11/05/20 12:30 119 H 115/78 11/05/20 12:19 11/05/20 12:15 118 H 82/60 L 11/05/20 12:00 120 H 100/84 11/05/20 11:32 110 H 23 108/71 11/05/20 11:30 115 H 72/53 L 11/05/20 11:15 120 H 92/73 L 11/05/20 11:13 122 H 21 92/73 L 11/05/20 11:00 117 H 107/59 L 11/05/20 10:45 117 H 107/62 11/05/20 10:37 118 H 22 11/05/20 10:30 122 H 88/47 L 11/05/20 10:29 119 H 20 88/47 L 11/05/20 10:15 113 H 105/58 L 11/05/20 10:00 99 H 115/68 11/05/20 09:58 113 H 32 H 115/68 11/05/20 09:45 116 H 123/72 11/05/20 09:21 109 H 126/80 11/05/20 09:17 97.7 F 109 H 11/05/20 09:13 111 H 22 153/79 H 11/05/20 08:13 107 H 25 H 145/81 H 11/05/20 08:00 113 H 11/05/20 07:13 105 H 21 130/71 11/05/20 07:05 104 H 24 11/05/20 05:33 97.7 F 11/05/20 05:13 107 H 25 H 156/82 H 11/05/20 04:13 108 H 38 H 153/84 H BP Pulse Ox 11/05/20 13:34 147/79 H 11/05/20 12:58 68/56 L 11/05/20 12:45 11/05/20 12:30 11/05/20 12:19 82/60 L 11/05/20 12:15 11/05/20 12:00 11/05/20 11:32 93 11/05/20 11:30 11/05/20 11:15 11/05/20 11:13 98 11/05/20 11:00 11/05/20 10:45 11/05/20 10:37 100 11/05/20 10:30 11/05/20 10:29 100 11/05/20 10:15 11/05/20 10:00 11/05/20 09:58 99 11/05/20 09:45 11/05/20 09:21 11/05/20 09:17 11/05/20 09:13 93 11/05/20 08:13 96 11/05/20 08:00 11/05/20 07:13 88 L 11/05/20 07:05 94 11/05/20 05:33 11/05/20 05:13 89 L 11/05/20 04:13 89 L PG Care Time/CCT Total # of Minutes Spent Total Time Spent with Patient: Total time spent is greater than 50% in coordination of care (as documented) at patient's floor/unit and/or counseling patient: Coding Level of Care Code 05590 Subseq Hosp Care Lvl 3 Diagnoses Acute respiratory failure with hypoxemia J96.01 Severe sepsis A41.9; R65.20 Acute kidney injury N17.9 Pneumonia due to 2019 novel coronavirus U07.1; J12.82 Bacterial pneumonia J15.9 Hypotension I95.9 Elevated troponin R77.8 Elevated d-dimer R79.89 Elevated liver enzymes R74.8 Fecal occult blood test positive R19.5 Hyponatremia E87.1 Pneumothorax J93.9 Cavitary lesion of lung J98.4
[2020-11-06] MEDS: PIPERACILLIN/TAZOBACTAM 3.375 GM in DEXTROSE 5% 100 ML IV SCH (01:54)
[2020-11-06 04:51] LABS: Hematocrit (blood only) 25.6 % (37-47); Hemoglobin 8.4 g/dL (12.0-16.0); Mean Corpuscular Hemoglobin 28.8 pg (25-34); Mean Corpuscular Hgb Conc 32.8 g/dL (32-36); Mean Corpuscular Volume 87.7 fL (80-100); Mean Platelet Volume 11.3 fL (7.4-10.4); Nucleated RBC # (auto) 0.28 K/uL (0-0); Nucleated RBC % (auto) 1.1 %; Platelet Count 481 K/uL (130-400); RDW Coefficient of Variation 18.1 % (11.5-14.5); RDW Standard Deviation 55.5 fL (36.4-46.3); Red Blood Count 2.92 M/uL (4.2-5.4); White Blood Count 25.96 K/uL (4.8-10.8)
[2020-11-06 05:18] LABS: Albumin Level 1.5 gm/dl (3.4-5.0); BUN Creatinine Ratio 21.8 (10-20); Calcium 8.9 mg/dl (8.5-10.1); Creatinine Clr Calc Pharmacy 11.6 ml/min; Est GFR (Non-African American) 13.8 ml/min; Potassium 3.7 mmol/L (3.5-5.1)
[2020-11-06 05:23] LABS: Albumin Globulin Ratio 0.2 (0.9-2); Bilirubin,Total 0.3 mg/dl (0.2-1); Globulin 6.2 gm/dl (2.5-4.0); Phosphorus 3.4 mg/dl (2.5-4.9); Total Protein 7.7 gm/dl (6.4-8.2)
--- NOTE | 2020-11-06 08:23 | Pharmacy Report ---
Pharmacy Abx Dose Short Note - Date of Service November 06, 2020 - Assessment & Plan Assessment 75 year old F receiving vancomycin/zosyn/caspo for possible pneumonia and also for concerns of an infectious lung lesion Day # 4 of antimicrobial therapy. Plan Vancomycin * Random vancomycin level this AM ~22.8 mcg/ml (goal 15-20 mcg/ml) * Caspofungin added on due to chest CT 11/05 with possible cavitary lesion and concerns for necrotizing infection/abscess * Patient remains anuric, therefore patient not needing dose of vancomycin today as no HD ordered * Will continue to monitor closely and dose by levels. Will order random level tomorrow AM to assist with dosing of vancomycin Pharmacy will continue to follow and will adjust dose/frequency as necessary. Thank you.
[2020-11-06] MEDS: HEPARIN SOD 5,000 UNIT/0.5 ML VIAL SQ SCH ×2 (09:13→20:08)
[2020-11-06] MEDS: ESCITALOPRAM OXALATE ORAL SOLN 20 MG/20 ML UDP PO SCH (09:13)
[2020-11-06] MEDS: FAMOTIDINE 20 MG TAB PO SCH (09:13)
[2020-11-06] MEDS: TUBE FEEDING WATER FLUSH NG SCH ×4 (09:14→16:59)
[2020-11-06] MEDS: MIDODRINE HCL 10 MG TAB PO SCH ×3 (09:15→16:59)
[2020-11-06] MEDS: MIDODRINE HCL 2.5 MG TAB PO SCH (09:16)
[2020-11-06] MEDS ORDERED: FUROSEMIDE 80 MG in SYRINGE 0 ML IV ONE (10:32)
--- NOTE | 2020-11-06 11:05 | Nephrology Progress Note ---
Date of Service November 06, 2020 Assessment & Plan (1) Acute kidney injury: Plan: * Baseline creatinine <1 mg/dL * LENNOX c/w ATN * US without obstruction * Urinalysis 10/15 negative for cellular casts * HD initiated 10/15/20. R IJ THC placed 10/31/20 * I&O's do not take into account UF w/ HD. Patient was dialyzed yesterday for 2.3L UF. Dialysis stopped 1 hour early due to hypotension. Weight is down 8 kg since admission. Patient appears clinically volume contracted to euvolemic. Will hold HD today, insert Falk catheter and provide a trial of IV Furosemide (2) Anemia: Plan: * Hgb stable at 8.4 * Day #5/5 IV Venofer * AMARILYS provided w/ HD 11/05/20 (3) Pneumonia due to 2019 novel coronavirus: Plan: * Received Toclizumab 10/13/20 * Completed Dexamethasone therapy * Remdesivir held due to LENNOX, elevated LFT's * Prognosis guarded - COVID pneumonia resulted in mechanical ventilation, pressor support, LENNOX requiring HD * Patient now has HAP and is on antibiotic therapy. Chest CT 11/05/20 shows bilateral ground glass infiltrates c/w viral pneumonia and a 6.5 cm RUL cavitary lesion suggestive of a necrotizing infection/abscess * DNR/DNI status (4) Hypotension: Plan: * SBP has been 107 - 130 mmHg last 24 hours * Will increase Midodrine to 10 mg po TID Admission and Anticipated Discharge Date Admission Date: October 10, 2020 Subjective Mrs. Suero was evaluated in the ICU this morning. She was dialyzed yesterday for 2.3L UF. HD terminated 1 hour early due to hypotension (SBP 70's). Mrs. Suero remains on high flow oxygen. Review of Systems Review of Systems: detailed review system was unremarkable except mentioned above. Respiratory: + dyspnea Cardiovascular: no chest pain Gastrointestinal: no abdominal pain Physical Exam Constitutional: + ill appearing Eyes: PERRL, conjunctivae normal, anicteric sclerae ENMT: external ear and nose normal, oropharynx normal Neck: trachea midline, no thyromegaly R IJ THC w/ clean dry dressing Respiratory: + tachypneic Auscultation: + crackles Cardiovascular: Rate/Rhythm: regular rhythm and + tachycardic Extremities: no edema Gastrointestinal (Abdomen): Inspection/Auscultation: + hypoactive bowel sounds Skin: + turgor decreased Neurologic: awake Results & Data ([facility]) Vital Signs (Past 12 Hours) Vital Signs Temp Pulse Pulse Resp BP Pulse Ox 11/06/20 10:34 110 H 21 130/70 95 11/06/20 09:34 110 H 25 H 113/74 95 11/06/20 09:27 110 H 26 H 133/65 93 11/06/20 08:34 110 H 18 113/61 92 11/06/20 07:34 110 H 24 106/67 93 11/06/20 07:20 112 H 22 93 11/06/20 06:19 36.8 C 11/06/20 05:34 115 H 22 107/60 92 11/06/20 04:37 110 H 22 98 11/06/20 03:34 119 H 25 H 116/65 92 11/06/20 03:12 120 H 24 93 11/06/20 02:34 119 H 30 H 117/70 95 11/06/20 01:34 113 H 24 116/80 93 11/06/20 00:34 110 H 25 H 116/65 92 11/06/20 00:00 103 H 11/05/20 23:34 113 H 25 H 113/67 95 Laboratory Results Laboratory Tests 11/06/20 11/06/20 04:32 04:32 WBC 25.96 H Hgb 8.4 L Plt Count 481 H Sodium 138 Potassium 3.7 Chloride 102 Creatinine 3.17 H D Glucose 137 H Calcium 8.9 Phosphorus 3.4 D Magnesium 2.0 PG Care Time/CCT Total # of Minutes Spent Total Time Spent with Patient: Total time spent is greater than 50% in coordination of care (as documented) at patient's floor/unit and/or counseling patient: Coding Level of Care Code 48298 Subseq Hosp Care Lvl 3 Diagnoses Acute kidney injury N17.9 Anemia D64.9 Pneumonia due to 2019 novel coronavirus U07.1; J12.82 Hypotension I95.9
--- NOTE | 2020-11-06 12:27 | Hospitalist Progress Note ---
Date of Service November 06, 2020 Assessment & Plan (1) Cavitary lesion of lung: Plan: CT scan from November 05 shows a right lung cavitary lesion which was not present on October 27. 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 As noted previously, a superimposed bacterial pneumonia, ARDS, pulmonary hemorrhage, and/or edema could appear similar. There is more confluent consolidation in the right upper lobe with a large, multiloculated, and thick walled cavitary lesion 6.5 x 5 x 4.5 cm. This contains internal fluid/debris and is new from 10/27/2020. This likely represents necrotizing infection/abscess. I did call [facility] Dr Dyson (sp?), icu attending she reviewed the films, they did not recommend surgical resection ior transfer at this time, transfer would impart risk especially if pt would not want to be intubated and risk of travel with significant oxygen need. (2) Acute respiratory failure with hypoxemia: Plan: Acute respiratory failure with hypoxemia 2/2 Covid pneumonia complicated by renal failure, with escalation of oxygen to vapotherm, now on airborne precautions, gold quanterferone sent and will keep isolation restarted on Zosyn 11/02/20, procalcitonin 7.7 on 11/03, will added vancomycin, c aspofungin started, quanterferon gold sent 11/03 bio fire -11/03 Covid antibodies are present and biofire negative on 11/03/20 Earlier the patient completed prior 5-day course of azithromycin/Rocephin Patient was dialyzed on 11/05 with the help of pressors to support blood pressure during sessions Remdesivir - first dose given on 10/10. Received dose #2 on 10/11. - Due to development of LENNOX and transaminitis the remdesivir was stopped after 2nd dose. -s/p Tocilizumab - 10/13/20. -previously was on extended Decadron protocol, last dose was 10/30 Date of intubation: 10/16/2020- extubated 10/25/20, now is DNI this was reconfirmed with pt on 11/02/20 remains in ICU due to hypoxic respiratory failure, complexity of care, needing Levophed intermittently, especially with HD and now lung abscess on AGB precautions, discussed with infection control do not feel continuation of covid precautions so just airborne masking at this time (3) Severe sepsis: Plan: -2nd to COVID-19 pneumonia. now with recurrence of sepsis with tachycardia, lower bp and hypoxia lung abscess found on imaging 11/05 -Intermittent pressor support during dialysis despite midodrine Patient on vancomycin, Zosyn and caspofungin therapy (4) Acute kidney injury: Plan: -ATN due to COVID-19 (and/or remdesivir) with resulting severe acute renal failure. -Temporary HD catheter placed 10/15. -tunneled HD catheter placed 10/31/2020 as she is not showing signs of recovery Nephrology has been following, placed huston 11/06 and will try iv diuretic per Dr Quiñonez (5) Pneumonia due to 2018 novel coronavirus: Plan: - completed treatment, cxr changes 11/02 however bio fire negative immunoglobulins, serum positive for immunity (6) Bacterial pneumonia: Plan: Zosyn and Vanco and caspofungin. did have negative nasal mrsa test but with concern for necrotizing pneumonia will keep vancomycin (7) Hypotension: Plan: 2nd to severe sepsis, COVID-19, medications (propofol), etc. Continue levophed PRN, with HD, Midodrine 5mg TID (8) Elevated troponin: Plan: -Peak trop 0.154. -2nd to myocardial demand ischemia. Repeat troponin is negative (9) Elevated d-dimer: Plan: -4890 on admission (10/10/20). -LE dopplers negative for DVT b/l. -Did not initially perform CT angiogram due to renal failure, have alternate issues for tachycardia and hypoxia (10) Elevated liver enzymes: Plan: -transaminitis 2nd to COVID-19. -ast/alt low level elevation due to illness (11) Fecal occult blood test positive: Plan: -Melanic stools on second day of admission. -Cont PPI for GI prophylaxis. - transfused one unit PRBC on 10/24, (12) Hyponatremia: Plan: -resolved (13) Pneumothorax: Plan: Chest tube placed by critical care team, removed 10/26, no residual PTX Plan: -appreciate ICU and palliative care assistance -family meeting with palliative took place on 10/19 -- patient made DNR, no transfer to tertiary care- re confirmed DNR/DNI on 11/02/20 but willing for transfer if needed Admission and Anticipated Discharge Date Admission Date: October 10, 2020 Subjective this pt is awake and alert, she is agreeable to have huston to track urine outpt if any, no dialysis today. pt not much improved with pulmonary status Review of Systems Review of Systems: mild distress and moderate fatigue no headache, no visual changes has some hoarse voice minor chest pain at the cath insertion site Continues with moderate shortness of breath, no abdominal pain, nausea or vomiting, diarrhea or constipation no dysuria, hematuria or frequency no focal joint pain or peripheral swelling no back pain, CVA tenderness or radicular pain no bruising, epistaxis on 11/02 associated with CPAP now resolved no focal signs of weakness or numbness or altered sensation overall very weak Extreme fatigue Physical Exam Physical Exam: The patient appeared fatigued and now looking chronicially ill Vital signs as documented. Head exam is normocephalic atraumatic Neck is with JVD, thyromegaly, or carotid bruits. Lungs remain coarse bilaterally tunneled cath site does not look infected Cardiac exam, Rhythm is regular.. No murmurs, rubs or gallops. Abdominal exam reveals normal bowel sounds, soft non tender, no masses Extremities are 1+ edematous and both pedal pulses are present Neurologic exam is alert and oriented, extremely fatigued no focal loss of strength or sensation Skin is without bruises or rashes Psychologically is without concerns for anxiety or depression Results & Data Results & Data ([facility]) Vital Signs (Past 12 Hours) Vital Signs Temp Pulse Pulse Resp BP Pulse Ox 11/06/20 11:52 113 H 22 90 11/06/20 11:34 114 H 33 H 124/70 89 L 11/06/20 10:34 110 H 21 130/70 95 11/06/20 09:34 110 H 25 H 113/74 95 11/06/20 09:27 110 H 26 H 133/65 93 11/06/20 08:34 110 H 18 113/61 92 11/06/20 07:34 110 H 24 106/67 93 11/06/20 07:20 112 H 22 93 11/06/20 06:19 98.2 F 11/06/20 05:34 115 H 22 107/60 92 11/06/20 04:37 110 H 22 98 11/06/20 03:34 119 H 25 H 116/65 92 11/06/20 03:12 120 H 24 93 11/06/20 02:34 119 H 30 H 117/70 95 11/06/20 01:34 113 H 24 116/80 93 11/06/20 00:34 110 H 25 H 116/65 92 PG Care Time/CCT Total # of Minutes Spent Total Time Spent with Patient: Total time spent is greater than 50% in coordination of care (as documented) at patient's floor/unit and/or counseling patient: Coding Level of Care Code 97765 Subseq Hosp Care Lvl 3 Diagnoses Cavitary lesion of lung J98.4 Acute respiratory failure with hypoxemia J96.01 Severe sepsis A41.9; R65.20 Acute kidney injury N17.9 Pneumonia due to 2019 novel coronavirus U07.1; J12.82 Bacterial pneumonia J15.9 Hypotension I95.9 Elevated troponin R77.8 Elevated d-dimer R79.89 Elevated liver enzymes R74.8 Fecal occult blood test positive R19.5 Hyponatremia E87.1 Pneumothorax J93.9
[2020-11-06] MEDS: ASPIRIN 81 MG CHEW NG SCH (12:50)
[2020-11-06] MEDS: PIPERACILLIN/TAZOBACTAM 4.5 GM in DEXTROSE 5% 100 ML IV SCH (12:50)
[2020-11-06] MEDS: NOVASOURCE RENAL 2.0 CAL 1000ML BAG NG SCH (14:22)
--- NOTE | 2020-11-06 15:38 | Critical Care Progress Note ---
Date of Service November 06, 2020 Assessment & Plan (1) Pneumonia due to 2019 novel coronavirus: (2) Acute respiratory failure with hypoxemia: (3) Bacterial pneumonia: (4) Acute kidney injury: (5) Metabolic acidosis: (6) Pneumothorax: (7) Pneumomediastinum: (8) Diarrhea: Plan: Zenobia Suero is a 75 yo female with PMHx significant for HTN and anxiety who was admitted on 10/10 with COVID-19 pneumonia. She was transferred to the ICU on 10/11. Required intubation, initiation of vasopressors for shock, ARDS, as well as acute renal failure requiring initiation of hemodialysis. Extubated on 10/25 but remains dialysis-dependent; s/p Permcath placement on 10/31. Also has vocal cord paralysis and may ultimately need PEG tube placement. Patient was changed to tele status on 11/01 but required upgrade to ICU status on 11/02 for worsening respiratory status and persistent need for vasopressors associated with dialysis.Patient was changed to tele status on 11/01 but required upgrade to ICU status on 11/02 for worsening respiratory status and persistent need for vasopressors associated with dialysis. --Acute hypoxemic respiratory failure Due to COVID-19 PNA. S/p high-dose DEXA ARDS. Also had chest tube placed, which was removed on 10/26 with residual pneumomediastinum that will resolve with time. Now with worsening respiratory status that is likely due to post- inflammatory/fibrotic pulmonary changes vs superimposed bacterial infection. - Currently has adequate oxygen saturation with high-flow NC at 50L/min at 65% FiO2 - Patient is DNI and will not be intubated in setting of further respiratory decompensation - Continue flutter valve and incentive spirometer if tolerated - Patient will need ongoing speech therapy as well as ENT follow-up. --Pneumonia of the right upper lobe Possibility of necrotizing pneumonia is high Patient's nasal MRSA was negative next line given that she got tocilizumab as well as on long-term antibiotics possibility of fungal infection is also the Goal QuantiFERON has been ordered --> following up Earlier in the course completed 5 days of Azithromycin and Rocephin for signs of superimposed bacterial pneumonia. --Evidence of vocal cord paralysis Based on speech therapy evaluation. ENT consulted and did not feel that intervention is required at this time. --ILD/fibrotic changes on the lungs Likely from severe COVID-19 pneumonia --End-stage renal disease Continue with dialysis Nephrology on board --Chronic low blood pressure On midodrine --Prophylaxis VTE: Heparin GI: Pepcid Lines: Right permacath, peripheral, Falk Diet: Tube feeds through the NGT Plan: Continue with antifungal as well as Zosyn given the cavitating pneumonia of the right upper lobe Nasal MRSA was done on 11/02/2020 which was again negative. CT surgery should be consulted in case she might need surgery Sputum culture. If the patient's clinical status does not improve then bronchoscopy could be thought of I did explain to the patient the need for bronchoscopy in future she was very reluctant about it as she would not like to be intubated Patient will be very high risk for intubation if bronchoscopy is proceeded I will wait for the Christel friend to come back before proceeding -Discussed with Dr. Quiñonez, will hold dialysis today 80 mg of Lasix given to the patient I have personally spent 35 minutes of critical care time in the direct management of this patient. This is a life/limb threatening event. This includes time spent evaluating patient, direct bedside care, chart review, placing orders, interpretation of diagnostic studies, discussion with consultants, patient, and family members, as well as other required patient management activities. This time is exclusive of all separately billable procedures, and teaching time and separate from and in addition to any other critical care service time. Please note the above document was generated using voice recognition software. It may contain grammatical, syntax or spelling errors. Admission and Anticipated Discharge Date Admission Date: October 10, 2020 Subjective Patient seen and examined at bedside. No acute distress, no adverse events overnight. Patient is on 50 L, 70% FiO2 Saturating 92-93% Denies any chest pain, no headache, no nausea, no vomiting Has been getting feedings through the NGT Has been afebrile and last 24 hours Review of Systems Review of Systems: All systems reviewed & are unremarkable except as noted in Subjective Physical Exam Physical Exam: Constitutional: No acute distress HEENT: EOMI, PERRLA, positive NGT Respiratory system: Decreased air entry bilaterally, no wheeze, rhonchi, positive crackles bilaterally CVS: S1-S2 positive, no murmurs or gallops, right-sided permacath Abdomen: Soft, nontender, nondistended, positive bowel sounds x4 Extremities: +2 pulses bilaterally radialis/ dorsalis pedis, no cyanosis, no edema Neuro: Awake alert oriented to self and place Psych: Normal mood and affect G/U: Positive Falk Skin: no rashes, warm and dry Lymphatic: no cervical or axillary lymphadenopathy Results & Data Results & Data ([facility]) Vital Signs (Past 12 Hours) Vital Signs Temp Pulse Pulse Resp BP Pulse Ox 11/06/20 11:52 113 H 22 90 11/06/20 11:34 114 H 33 H 124/70 89 L 11/06/20 10:34 110 H 21 130/70 95 11/06/20 09:34 110 H 25 H 113/74 95 11/06/20 09:27 110 H 26 H 133/65 93 11/06/20 08:34 110 H 18 113/61 92 11/06/20 07:34 110 H 24 106/67 93 11/06/20 07:20 112 H 22 93 11/06/20 06:19 36.8 C 11/06/20 05:34 115 H 22 107/60 92 11/06/20 04:37 110 H 22 98 11/06/20 03:34 119 H 25 H 116/65 92 11/06/20 04:32 11/06/20 04:32 Coding Level of Care Code Critical Care 1st 30-74 mins Diagnoses Pneumonia due to 2019 novel coronavirus U07.1; J12.82 Acute respiratory failure with hypoxemia J96.01 Bacterial pneumonia J15.9 Acute kidney injury N17.9 Metabolic acidosis E87.2 Pneumothorax J93.9 Pneumomediastinum J98.2 Diarrhea R19.7 Time Spent (min) 35
[2020-11-06] MEDS ORDERED: CASPOFUNGIN 35 MG in SODIUM CHLORIDE 0.9% 250 ML IV SCH (16:00)
[2020-11-07] MEDS: PIPERACILLIN/TAZOBACTAM 4.5 GM in DEXTROSE 5% 100 ML IV SCH ×2 (01:30→13:38)
[2020-11-07] MEDS: TUBE FEEDING WATER FLUSH NG SCH ×7 (01:31→23:15)
[2020-11-07 05:00] LABS: Hematocrit (blood only) 24.7 % (37-47); Mean Corpuscular Hemoglobin 28.6 pg (25-34); Mean Corpuscular Hgb Conc 32.4 g/dL (32-36); Mean Corpuscular Volume 88.2 fL (80-100); Mean Platelet Volume 11.1 fL (7.4-10.4); Nucleated RBC # (auto) 0.57 K/uL (0-0); Nucleated RBC % (auto) 1.9 %; Platelet Count 487 K/uL (130-400); RDW Coefficient of Variation 18.3 % (11.5-14.5); RDW Standard Deviation 56.4 fL (36.4-46.3); White Blood Count 29.28 K/uL (4.8-10.8)
[2020-11-07] MEDS: NOREPINEPHRINE/D5W 8 MG/508 ML BAG IV SCH (05:28)
[2020-11-07 05:39] LABS: BUN Creatinine Ratio 25.3 (10-20); Calcium 9.4 mg/dl (8.5-10.1); Est GFR (African American) 10.1 ml/min; Est GFR (Non-African American) 8.7 ml/min; Magnesium 2.3 mg/dl (1.8-2.4); Potassium 3.8 mmol/L (3.5-5.1)
[2020-11-07 05:46] LABS: Phosphorus 5.1 mg/dl (2.5-4.9)
--- NOTE | 2020-11-07 07:34 | Critical Care Progress Note ---
Date of Service November 07, 2020 Assessment & Plan (1) Pneumonia due to 2019 novel coronavirus: (2) Acute respiratory failure with hypoxemia: (3) Bacterial pneumonia: (4) Acute kidney injury: (5) Metabolic acidosis: (6) Pneumothorax: (7) Pneumomediastinum: (8) Diarrhea: Plan: Zenobia Suero is a 75 yo female with PMHx significant for HTN and anxiety who was admitted on 10/10 with COVID-19 pneumonia. She was transferred to the ICU on 10/11. Required intubation, initiation of vasopressors for shock, ARDS, as well as acute renal failure requiring initiation of hemodialysis. Extubated on 10/25 but remains dialysis-dependent; s/p Permcath placement on 10/31. Also has vocal cord paralysis and may ultimately need PEG tube placement. Patient was changed to tele status on 11/01 but required upgrade to ICU status on 11/02 for worsening respiratory status and persistent need for vasopressors associated with dialysis.Patient was changed to tele status on 11/01 but required upgrade to ICU status on 11/02 for worsening respiratory status and persistent need for vasopressors associated with dialysis. --Acute hypoxemic respiratory failure Due to COVID-19 PNA. S/p high-dose DEXA ARDS. Also had chest tube placed, which was removed on 10/26 with residual pneumomediastinum that will resolve with time. Now with worsening respiratory status that is likely due to post- inflammatory/fibrotic pulmonary changes vs superimposed bacterial infection. - Currently has adequate oxygen saturation with high-flow NC at 50L/min at 65% FiO2 - Patient is DNI and will not be intubated in setting of further respiratory decompensation - Continue flutter valve and incentive spirometer if tolerated - Patient will need ongoing speech therapy as well as ENT follow-up. --Pneumonia of the right upper lobe Possibility of necrotizing pneumonia is high Patient's nasal MRSA was negative next line given that she got tocilizumab as well as on long-term antibiotics possibility of fungal infection is also the Goal QuantiFERON has been ordered --> following up Earlier in the course completed 5 days of Azithromycin and Rocephin for signs of superimposed bacterial pneumonia. --Evidence of vocal cord paralysis Based on speech therapy evaluation. ENT consulted and did not feel that intervention is required at this time. --ILD/fibrotic changes on the lungs Likely from severe COVID-19 pneumonia --End-stage renal disease Continue with dialysis Nephrology on board --Chronic low blood pressure On midodrine --Prophylaxis VTE: Heparin GI: Pepcid Lines: Right permacath, peripheral, Falk Diet: Tube feeds through the NGT Plan: T-max 37.8 Given the inability to dialyze the patient because of hypoxia I do not have a clear reason why the patient gets hypoxic while getting dialyzed. She does not get hypotensive Chest x-ray does not show any signs of pneumothorax. Steel syndrome could be one of the differential. Overall prognosis of the patient is guarded given inability to dialyze New right upper lobe cavitary pneumonia Patient does not want intubation. Palliative care spoke with the today and again updated regarding the current situation. Palliative care approach to comfort measures was recommended. He is going to think about it and talk to their kids. Continue with antifungal as well as Zosyn given the cavitating pneumonia of the right upper lobe Nasal MRSA was done on 11/02/2020 which was again negative. On 11/06/2020 I did explain to the patient the need for bronchoscopy in future she was very reluctant about it as she would not like to be intubated Patient will be very high risk for intubation if bronchoscopy is proceeded I will wait for the goal QuantiFERON to come back before proceeding I have personally spent 35 minutes of critical care time in the direct managem ent of this patient. This is a life/limb threatening event. This includes time spent evaluating pat ient, direct bedside care, chart review, placing orders, interpretation of diagnostic studies, discussion with consultants, patient, and family members, as well as other required patient management activities. This time is exclusive of all separately billable procedures, and teaching time and separate from and in addition to any other critical care service time. Please note the above document was generated using voice recognition software. It may contain grammatical, syntax or spelling errors. Admission and Anticipated Discharge Date Admission Date: October 10, 2020 Subjective Patient seen and examined at bedside. Patient was on CPAP support of 10 During dialysis today patient got hypoxic into the 60s and in respiratory distress It was stopped after 15 minutes of initiation. Patient was in respiratory distress at the time of examination. She denied any headache, no chest pain. Has been afebrile. Review of Systems Review of Systems: All systems reviewed & are unremarkable except as noted in Subjective Physical Exam Physical Exam: Constitutional: In respiratory distress HEENT: EOMI, PERRLA, positive NGT Respiratory system: Decreased air entry bilaterally, no wheeze, rhonchi, positive crackles bilaterally CVS: S1-S2 positive, no murmurs or gallops, right-sided permacath Abdomen: Soft, nontender, nondistended, positive bowel sounds x4 Extremities: +2 pulses bilaterally radialis/ dorsalis pedis, no cyanosis, no edema Neuro: Awake alert oriented to self and place Psych: Restless G/U: Positive Falk Skin: no rashes, warm and dry Lymphatic: no cervical or axillary lymphadenopathy Results & Data Results & Data ([facility]) Vital Signs (Past 12 Hours) Vital Signs Temp Pulse Pulse Resp BP Pulse Ox 11/07/20 05:22 36.4 C L 11/07/20 04:30 104 H 24 91 11/07/20 02:02 37.0 C 11/07/20 01:34 102 H 23 146/71 H 94 11/07/20 00:34 105 H 24 150/72 H 95 11/07/20 00:00 103 H 11/06/20 23:34 103 H 18 142/74 H 94 11/06/20 22:53 100 H 20 93 11/06/20 22:34 102 H 20 148/73 H 93 11/06/20 21:35 103 H 21 147/77 H 96 11/06/20 21:15 36.7 C 11/06/20 20:34 103 H 20 125/76 93 11/06/20 20:33 102 H 21 87 L 11/07/20 04:30 11/07/20 04:30 Coding Level of Care Code Critical Care 1st 30-74 mins Diagnoses Pneumonia due to 2019 novel coronavirus U07.1; J12.82 Acute respiratory failure with hypoxemia J96.01 Bacterial pneumonia J15.9 Acute kidney injury N17.9 Metabolic acidosis E87.2 Pneumothorax J93.9 Pneumomediastinum J98.2 Diarrhea R19.7 Time Spent (min) 35
[2020-11-07] MEDS: HEPARIN SOD 5,000 UNIT/0.5 ML VIAL SQ SCH ×2 (07:57→23:14)
[2020-11-07] MEDS: FAMOTIDINE 20 MG TAB PO SCH (07:57)
[2020-11-07] MEDS: ESCITALOPRAM OXALATE ORAL SOLN 20 MG/20 ML UDP PO SCH (07:57)
[2020-11-07] MEDS: MIDODRINE HCL 10 MG TAB PO SCH ×5 (07:57→17:00)
[2020-11-07] MEDS ORDERED: SODIUM CHLORIDE 0.9% 1000ML 1,000 ML IV PRN (08:55)
[2020-11-07] MEDS ORDERED: HEPARIN SOD (PORCINE) 1000 UNIT/ML IV ONE (08:55)
[2020-11-07] MEDS ORDERED: EPOETIN ALFA 10,000 UNITS in SYRINGE 0 ML IV SCH (09:00)
[2020-11-07] MEDS ORDERED: EPOETIN ALFA 10,000 UNITS/ML VIAL IV SCH (09:00)
--- NOTE | 2020-11-07 09:24 | Nephrology Progress Note ---
Date of Service November 07, 2020 Assessment & Plan (1) Acute kidney injury: Plan: * Baseline creatinine <1 mg/dL * LENNOX c/w ATN * US without obstruction * Urinalysis 10/15 negative for cellular casts * HD initiated 10/15/20. R IJ THC placed 10/31/20 * Remains anuric. Now azotemic. Will provide HD today for correction of azotemia and attempt 3L UF (2) Anemia: Plan: * Hgb continues to drift down * 1 g IV Venofer completed 11/06/20 * Will provide AMARILYS w/ HD today (3) Pneumonia due to 2019 novel coronavirus: Plan: * Received Toclizumab 10/13/20 * Completed Dexamethasone therapy * Remdesivir held due to LENNOX, elevated LFT's * Prognosis guarded - COVID pneumonia resulted in mechanical ventilation, pressor support, LENNOX requiring HD * Patient now has HAP and is on antibiotic therapy. Chest CT 11/05/20 shows bilateral ground glass infiltrates c/w viral pneumonia and a 6.5 cm RUL cavitary lesion suggestive of a necrotizing infection/abscess * DNR/DNI status (4) Hypotension: Plan: * SBP has been 140 - 150 mmHg last 24 hours * Continue Midodrine 10 mg po TID. Attempt to taper tomorrow Admission and Anticipated Discharge Date Admission Date: October 10, 2020 Subjective Mrs. Suero was evaluated in the ICU this morning. She did not respond to trial of diuretic therapy. She remains anuric. She is net 2L vol + last 24 hours Review of Systems Respiratory: + dyspnea Cardiovascular: no chest pain Gastrointestinal: no abdominal pain Physical Exam Physical Exam: withheld due to COVID + status Constitutional: + ill appearing Eyes: PERRL, conjunctivae normal, anicteric sclerae PERRL ENMT: external ear and nose normal, oropharynx normal Neck: trachea midline, no thyromegaly Respiratory: + tachypneic Auscultation: + crackles Cardiovascular: Rate/Rhythm: regular rhythm and + tachycardic Extremities: no edema Gastrointestinal (Abdomen): Inspection/Auscultation: + hypoactive bowel sounds Skin: + turgor decreased Neurologic: awake Results & Data ([facility]) Vital Signs (Past 12 Hours) Vital Signs Temp Pulse Pulse Resp BP Pulse Ox 11/07/20 07:55 104 H 20 91 11/07/20 05:22 36.4 C L 11/07/20 04:30 104 H 24 91 11/07/20 02:02 37.0 C 11/07/20 01:34 102 H 23 146/71 H 94 11/07/20 00:34 105 H 24 150/72 H 95 11/07/20 00:00 103 H 11/06/20 23:34 103 H 18 142/74 H 94 11/06/20 22:53 100 H 20 93 11/06/20 22:34 102 H 20 148/73 H 93 11/06/20 21:35 103 H 21 147/77 H 96 Laboratory Results Laboratory Tests 11/07/20 11/07/20 04:30 04:30 WBC 29.28 H Hgb 8.0 L Hct 24.7 L Plt Count 487 H Sodium 139 Potassium 3.8 Chloride 102 Carbon Dioxide 22 BUN 117 H D Creatinine 4.64 H* D Glucose 139 H PG Care Time/CCT Total # of Minutes Spent Total Time Spent with Patient: Total time spent is greater than 50% in coordination of care (as documented) at patient's floor/unit and/or counseling patient: Coding Level of Care Code 74616 Subseq Hosp Care Lvl 3 Diagnoses Acute kidney injury N17.9 Anemia D64.9 Pneumonia due to 2019 novel coronavirus U07.1; J12.82 Hypotension I95.9
--- NOTE | 2020-11-07 10:32 | Pharmacy Report ---
Pharmacy Abx Dose Short Note - Date of Service November 07, 2020 - Assessment & Plan Assessment 75 year old F receiving vanc/zosyn/caspofungin for treatment of HAP. Day # 5 of antimicrobial therapy. Plan Vancomycin * Random level of 20.7 mcg/mL is therapeutic * As patient is receiving HD (3L UF) this morning, will redose with 500 mg IV X1 @ 1600 after HD * Trough or random level ordered for: 11/08/20 with AM labs Pharmacy will continue to follow and will adjust dose/frequency as necessary. Thank you.
[2020-11-07 10:54] LABS: Alanine Aminotransferase 144 U/L (12-78); Albumin Level 1.5 gm/dl (3.4-5.0); Alkaline Phosphatase 511 U/L (45-117); Aspartate Aminotransferase 43 U/L (15-37); Bilirubin Direct < 0.1 mg/dl (0-0.2); Bilirubin,Total 0.2 mg/dl (0.2-1); Total Protein 7.3 gm/dl (6.4-8.2)
--- NOTE | 2020-11-07 11:10 | Dialysis Progress Note ---
Date of Service November 07, 2020 Assessment & Plan (1) Acute kidney injury: Plan: Called to assess patient while on HD. 15 min into treatment Mrs. Suero became tachypneic to 41 bpm. She was hypoxemic w/ SaO2 60% on Vapotherm 60% O2 at 50 L/min. She was extremely agitated and could not lie still for the treatment. IJ THC would not function due to movement. HD treatment was terminated due to patient safety concerns. ROUGHER OPERATORstaff appraiser placed patient on BiPAP therapy and has consulted Palliative Care to update family. ICU team was provided medical update. Admission and Anticipated Discharge Date Admission Date: October 10, 2020 Results & Data ([facility]) Vital Signs (Past 12 Hours) Vital Signs Temp Pulse Pulse Resp BP Pulse Ox 11/07/20 08:34 36.6 C 104 H 41 H 142/66 H 92 11/07/20 07:55 104 H 20 91 11/07/20 07:34 104 H 31 H 139/79 94 11/07/20 05:22 36.4 C L 11/07/20 04:30 104 H 24 91 11/07/20 02:02 37.0 C 11/07/20 01:34 102 H 23 146/71 H 94 11/07/20 00:34 105 H 24 150/72 H 95 11/07/20 00:00 103 H 11/06/20 23:34 103 H 18 142/74 H 94 [facility] Procedure Codes (Charges) Renal/Urologic Renal/Urologic: 59072 Hemodialysis, One Evaluation Coding Level of Care Code None Diagnoses Acute kidney injury N17.9 CPT Codes Renal/Urologic - Renal/Urologic: 15785 Hemodialysis, One Evaluation ([id number])
[2020-11-07 11:22] LABS: INR 1.1 (0.9-1.1); Prothrombin Time 11.4 Seconds (9.0-12.0)
--- NOTE | 2020-11-07 11:26 | Palliative Care Progress Note ---
Date of Service November 07, 2020 Assessment & Plan (1) Palliative care encounter: Plan: Patient has been declining over the past few days. She has become more oxygen dependent, less interactive with increased weakness and continued dependence with hemodialysis. The patient has had a CT scan of the chest with cavitary lesions noted. A Quantum Aakash Gold has been sent for tuberculosis rule out. This will take one week to process and she will remain on airborne isolation until a negative result. I did talk with MARISELA on the phone at [phone] and we spoke at length. This individual has been now admitted for 28 days with initial progress in her care; however, over the past week, she has shown increasing problems, leading away from what we would consider a meaningful recovery. MARISELA has been able to process her decline over the past few weeks and he has previously mentioned that she would not want to be kept alive on machines. MARISELA and Zenobia have 4 adult children who live in [place], [place], [facility], and [place]. I did suggest to MARISELA that he contact them to offer then the opportunity to come to [facility] and see their mother. MARISELA said that he has talked with his four adult children regarding her guarding prognosis and offered them a visit. For now, the adult children primarily wish to have a phone visit instead. For now, continue treatment; however, she does have a guarded recovery and no escalation in care has been discussed with family. After discussion with Aleena Mcgraw, Infection Control. If the patient does end up transitioning to comfort measures prior to the Quantiferron Gold results, the patient can be masked with a procedural mask while on Hi-Flow for 30 minutes prior to the patients going into the room. The patients is to wear a procedural mask. If the patient is on Bipap, visitation can not be conducted. I will contact MARISELA to advise. Palliative Medicine will follow. (2) Acute respiratory failure with hypoxemia: (3) Pneumonia due to 2019 novel coronavirus: (4) Acute kidney injury: (5) Severe sepsis: Admission and Anticipated Discharge Date Admission Date: October 10, 2020 Subjective Patient is awake and able to follow some simple commands; however, no real meaningful interaction today to assist with decision making. During dialysis today patient got hypoxic into the 60s and in respiratory distress, was placed on BiPAP 30% and unable to tolerate hemodialysis for more than 10 minutes. It was stopped after 15 minutes of initiation. See A/P for further details. Review of Systems Review of Systems: [place] [facility] Assessment Scale: Pain: 1/3 AD SOB: 2/3 AD Anxiety: 1/3 AD Palliative Performance Scale: 20% Physical Exam Constitutional: comfortable Cardiovascular: Rate/Rhythm: regular rhythm and + tachycardic Heart Sounds: normal S1 and normal S2 Gastrointestinal (Abdomen): Inspection/Auscultation: abdomen normal to inspection Skin: + ecchymosis and + pallor Neurologic: awake Results & Data ([facility]) Vital Signs (Past 12 Hours) Vital Signs Temp Pulse Pulse Resp BP Pulse Ox 11/07/20 08:34 36.6 C 104 H 41 H 142/66 H 92 11/07/20 07:55 104 H 20 91 11/07/20 07:34 104 H 31 H 139/79 94 11/07/20 05:22 36.4 C L 11/07/20 04:30 104 H 24 91 11/07/20 02:02 37.0 C 11/07/20 01:34 102 H 23 146/71 H 94 11/07/20 00:34 105 H 24 150/72 H 95 11/07/20 00:00 103 H 11/06/20 23:34 103 H 18 142/74 H 94 PG Care Time/CCT Total # of Minutes Spent Total Time Spent with Patient: Total time spent is greater than 50% in coordination of care (as documented) at patient's floor/unit and/or counseling patient: 45 minutes with >50% of that time spent assessing the patient, discussing goals of care with family and collaborating with IDT Coding Level of Care Code 84147 Subseq Hosp Care Lvl 3 Diagnoses Palliative care encounter Z51.5 Acute respiratory failure with hypoxemia J96.01 Pneumonia due to 2019 novel coronavirus U07.1; J12.82 Acute kidney injury N17.9 Severe sepsis A41.9; R65.20 Time Spent (min) 45
--- NOTE | 2020-11-07 11:42 | XRay Report ---
XR chest 1V portable CLINICAL HISTORY: Follow up COMPARISON STUDY: November 04, 2020 FINDINGS: No pneumothorax. No pleural effusion. Right apical pleural thickening is again seen. Redemonstration of diffuse reticular opacities which is slightly improved since prior study. Left ret rocardiac opacity with air bronchogram is unchanged since prior. Cardiomediastinal silhouette is stable. Aorta is calcified. Pulmonary vasculature is obscured.. Osseous structures: Degenerative changes of bilateral shoulders. Stable position of the right hemodialysis catheter and feeding tube. IMPRESSION: 1. Mild interval improvement of reticular opacities throughout bilateral lungs. Stable left retrocar diac opacity in this patient with prior history of Covid pneumonia. 2. Support apparatus as above. ACT 112: Negative or not required by law. The above report was generated using voice recognition software. It may contain grammatical, syntax o r spelling errors. Electronically signed by: Ainsley Pulido DO 11/07/2020 11:41 AM
[2020-11-07] MEDS: HEPARIN SOD (PORCINE) 1000 UNIT/ML IV SCH ×2 (13:21→13:22)
[2020-11-07] MEDS: NOVASOURCE RENAL 2.0 CAL 1000ML BAG NG SCH (13:36)
[2020-11-07] MEDS: ASPIRIN 81 MG CHEW NG SCH (13:38)
--- NOTE | 2020-11-07 15:00 | Hospitalist Progress Note ---
Date of Service November 07, 2020 Assessment & Plan (1) Cavitary lesion of lung: Plan: CT scan from November 05 shows a right lung cavitary lesion which was not present on October 27. 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 As noted previously, a superimposed bacterial pneumonia, ARDS, pulmonary hemorrhage, and/or edema could appear similar. There is more confluent consolidation in the right upper lobe with a large, multiloculated, and thick walled cavitary lesion 6.5 x 5 x 4.5 cm. This contains internal fluid/debris and is new from 10/27/2020. This likely represents necrotizing infection/abscess. prior attending called [place] to discuss case, transfer would impair too great of a risk, especially with her wishes to not be intubated again no role for surgical intervention worsening prognosis as she is now on BIPAP, did not tolerate HD today, likely transition to comfort measures, family is planning on calling in to speak with patient over phone (2) Acute respiratory failure with hypoxemia: Plan: Acute respiratory failure with hypoxemia 2/2 Covid pneumonia complicated by renal failure, with escalation of oxygen to vapotherm, now on airborne precautions, gold quanterferone sent and will keep isolation restarted on Zosyn 11/02/20, procalcitonin 7.7 on 11/03, will added vancomycin, caspofungin started, quanterferon gold sent 11/03 bio fire -11/03 Covid antibodies are present and biofire negative on 11/03/20 Earlier the patient completed prior 5-day course of azithromycin/Rocephin Patient was dialyzed on 11/05 with the help of pressors to support blood pressure during sessions did not tolerated HD today, went in to worsening respiratory distress, now on BIPAP Remdesivir - first dose given on 10/10. Received dose #2 on 10/11. - Due to development of LENNOX and transaminitis the remdesivir was stopped after 2nd dose. -s/p Tocilizumab - 10/13/20. -previously was on extended Decadron protocol, last dose was 10/30 Date of intubation: 10/16/2020- extubated 10/25/20, now is DNI this was reconfirmed with pt on 11/02/20 remains in ICU due to hypoxic respiratory failure, complexity of care, needing Levophed intermittently, especially with HD and now lung abscess on AGB precautions, discussed with infection control do not feel continuation of covid precautions so just airborne masking at this time now on BIPAP, patient has stated clearly she does not want intubated or to be kept alive on machines palliative care assisting with transitioning to comfort measures in near future (3) Severe sepsis: Plan: -2nd to COVID-19 pneumonia. now with recurrence of sepsis with tachycardia, lower bp and hypoxia lung abscess found on imaging 11/05 -Intermittent pressor support during dialysis despite midodrine Patient on vancomycin, Zosyn and caspofungin therapy worsening prognosis the past few days (4) Acute kidney injury: Plan: -ATN due to COVID-19 (and/or remdesivir) with resulting severe acute renal failure. -Temporary HD catheter placed 10/15. -tunneled HD catheter placed 10/31/2020 as she is not showing signs of recovery Nephrology has been following, placed huston 11/06 did not tolerated HD on 11/07 unsure if family would want to try HD again tomorrow, ICU/nephrology will reach out to them (5) Pneumonia due to 2019 novel coronavirus: Plan: - completed treatment, cxr changes 11/02 however bio fire negative immunoglobulins, serum positive for immunity (6) Bacterial pneumonia: Plan: Zosyn and Vanco and caspofungin. did have negative nasal mrsa test but with concern for necrotizing pneumonia will keep vancomycin (7) Hypotension: Plan: 2nd to severe sepsis, COVID-19, medications (propofol), etc. Continue levophed PRN, with HD, Midodrine 5mg TID (8) Elevated troponin: Plan: -Peak trop 0.154. -2nd to myocardial demand ischemia. Repeat troponin is negative (9) Elevated d-dimer: Plan: -4890 on admission (10/10/20). -LE dopplers negative for DVT b/l. -Did not initially perform CT angiogram due to renal failure, have alternate issues for tachycardia and hypoxia (10) Elevated liver enzymes: Plan: -transaminitis 2nd to COVID-19. -ast/alt low level elevation due to illness (11) Fecal occult blood test positive: Plan: -Melanic stools on second day of admission. -Cont PPI for GI prophylaxis. - transfused one unit PRBC on 10/24, (12) Hyponatremia: Plan: -resolved (13) Pneumothorax: Plan: Chest tube placed by critical care team, removed 10/26, no residual PTX Plan: -appreciate ICU and palliative care assistance -family meeting with palliative took place on 10/19 -- patient made DNR, no tra nsfer to tertiary care- re confirmed DNR/DNI on 11/02/20 but willing for transfer if needed palliative care spoke with MARISELA (significant other) over the phone on 11/07/20, discussed very poor prognosis, getting worse the past week, now on BIPAP, did not tolerated HD today children [place], plan on calling in for visit, MARISELA may try to visit in person likely change to comfort measures in near future, continue all care short of intubation, CPR for time being Admission and Anticipated Discharge Date Admission Date: October 10, 2020 Subjective reviewed chart, patient has declined a lot over the past week now with evidence of cavitary lesion, TB testing is pending, will take a week could not tolerate hemodialysis today, went into respiratory distress, now on BIPAP for support appreciate palliative care note, she discussed situation with patient's si gnificant other, MARISELA the family (MARISELA and children) plan to call in for phone visits, likely transition to comfort care soon Review of Systems Review of Systems: Unobtainable due to cognitive status (lethargic, on BIPAP, non verbal with vocal cord dysfunction) Physical Exam Constitutional: well developed, + ill appearing, + frail appearing and + lethargic Neck: trachea midline, no thyromegaly Respiratory: + labored breathing (on BIPAP), + uses accessory muscles and + tachypneic Auscultation: no crackles, no rales and no wheezes Cardiovascular: RRR, no murmur, no edema Gastrointestinal (Abdomen): normal bowel sounds, soft, nontender, no hepatosplenomegaly Skin: no rashes, warm and dry Neurologic: CN's II-XI intact bilaterally; no focal motor deficits and + not awake Speech / Cognition: + abnormal speech (hoarse voice) Psychiatric: Orientation: + not alert Results & Data Results & Data ([facility]) Vital Signs (Past 12 Hours) Vital Signs Temp Pulse Pulse Resp BP Pulse Ox 11/07/20 10:22 112 H 32 H 90 11/07/20 08:34 36.6 C 104 H 41 H 142/66 H 92 11/07/20 07:55 104 H 20 91 11/07/20 07:34 104 H 31 H 139/79 94 11/07/20 05:22 36.4 C L 11/07/20 04:30 104 H 24 91 Laboratory Results Laboratory Results - last 24 hr 11/05/20 11/07/20 11/07/20 17:39 01:44 04:30 WBC 29.28 H RBC 2.80 L Hgb 8.0 L Hct 24.7 L MCV 88.2 MCH 28.6 MCHC 32.4 RDW Std Deviation 56.4 H RDW Coeff of Roxanna 18.3 H Plt Count 487 H MPV 11.1 H Absolute Nucleated RBC 0.57 H Nucleated RBC % (auto) 1.9 PT INR Sodium Potassium Chloride Carbon Dioxide Anion Gap BUN Creatinine Est Cr Clr Drug Dosing Est GFR ( Amer) Est GFR (Non-Af Amer) BUN/Creatinine Ratio Glucose POC Glucose 142 H Calcium Phosphorus Magnesium Total Bilirubin Direct Bilirubin AST ALT Alkaline Phosphatase Total Protein Albumin Random Vancomycin TB Test (QFT) Gold Plus Cancelled TB Test (QFT) Nil Cancelled TB Test Mitogen - Nil Cancelled TB Test Ag - Nil 1 Cancelled TB Test Ag - Nil 2 Cancelled 11/07/20 11/07/20 11/07/20 04:30 04:30 04:30 WBC RBC Hgb Hct MCV MCH MCHC RDW Std Deviation RDW Coeff of Roxanna Plt Count MPV Absolute Nucleated RBC Nucleated RBC % (auto) PT INR Sodium 139 Potassium 3.8 Chloride 102 Carbon Dioxide 22 Anion Gap 15.0 H BUN 117 H D Creatinine 4.64 H* D Est Cr Clr Drug Dosing 8.0 Est GFR ( Amer) 10.1 Est GFR (Non-Af Amer) 8.7 BUN/Creatinine Ratio 25.3 H Glucose 139 H POC Glucose Calcium 9.4 Phosphorus 5.1 H D Magnesium 2.3 Total Bilirubin 0.2 Direct Bilirubin < 0.1 AST 43 H ALT 144 H Alkaline Phosphatase 511 H Total Protein 7.3 Albumin 1.5 L Random Vancomycin 20.7 TB Test (QFT) Gold Plus TB Test (QFT) Nil TB Test Mitogen - Nil TB Test Ag - Nil 1 TB Test Ag - Nil 2 11/07/20 11/07/20 11/07/20 04:44 08:20 10:56 WBC RBC Hgb Hct MCV MCH MCHC RDW Std Deviation RDW Coeff of Roxanna Plt Count MPV Absolute Nucleated RBC Nucleated RBC % (auto) PT 11.4 INR 1.1 Sodium Potassium Chloride Carbon Dioxide Anion Gap BUN Creatinine Est Cr Clr Drug Dosing Est GFR ( Amer) Est GFR (Non-Af Amer) BUN/Creatinine Ratio Glucose POC Glucose 144 H Calcium Phosphorus Magnesium Total Bilirubin Direct Bilirubin AST ALT Alkaline Phosphatase Total Protein Albumin Random Vancomycin TB Test (QFT) Gold Plus Pending TB Test (QFT) Nil Pending TB Test Mitogen - Nil Pending TB Test Ag - Nil 1 Pending TB Test Ag - Nil 2 Pending Medications Administered Current Inpatient Medications Aspirin (Aspirin 81 Mg Chew) 81 mg NG QDL CHELSEY Stop: 11/16/20 11:29 Last Admin: 11/07/20 13:38 Dose: 81 mg Documented by: Clonazepam (Clonazepam 0.25 Mg Tab) 0.25 mg PO DAILY PRN PRN Reason: Agitation Stop: 11/26/20 08:59 Dextrose (Dextrose 50% 50 Ml Syringe) 25 - 50 ml IV UD PRN; Protocol PRN Reason: Hypoglycemia Protocol Stop: 11/12/20 08:44 Enteral Nutritional Formula (Novasource Renal 2.0 Moustapha 1000ml Bag) 1,000 ml NG CONT CHELSEY; Protocol Stop: 11/27/20 10:18 Last Admin: 11/07/20 13:36 Dose: 1,000 ml Documented by: Epoetin David (Epoetin David 10,000 Units/Ml Vial) 10,000 units IV 0900 CHELSEY Stop: 11/07/20 16:00 Last Admin: 11/07/20 13:21 Dose: Not Given Documented by: Escitalopram Oxalate (Escitalopram Oxalate Oral Soln 20 Mg/20 Ml Udp) 20 mg PO QAM CHELSEY Stop: 11/16/20 10:59 Last Admin: 11/07/20 07:57 Dose: 20 mg Documented by: Famotidine (Famotidine 20 Mg Tab) 20 mg PO QAM CHELSEY Stop: 12/06/20 08:59 Last Admin: 11/07/20 07:57 Dose: 20 mg Documented by: Glucagon (Glucagon For Inj 1 Mg Vial) 1 mg SQ UD PRN; Protocol PRN Reason: Hypoglycemia Protocol Stop: 11/12/20 08:44 Glucose (Glucose 40% Gel 15 Gm Tube) 15 - 30 gm PO UD PRN; Protocol PRN Reason: Hypoglycemia Protocol Stop: 11/12/20 08:44 Glucose (Glucose 10 Tabs/Tube) 4 - 8 tabs PO UD PRN; Protocol PRN Reason: Hypoglycemia Protocol Stop: 11/12/20 08:44 Heparin Sodium (Porcine) (Heparin Sod 5,000 Unit/0.5 Ml Vial) 5,000 units SQ Q12 CHELSEY Stop: 11/24/20 11:14 Last Admin: 11/07/20 07:57 Dose: 5,000 units Documented by: Norepinephrine Bitartrate (Levophed/D5w) 8 mg in 508 mls @ 0 mls/hr IV .Q0M SC H; Protocol Stop: 12/03/20 09:44 Last Admin: 11/07/20 05:28 Dose: Not Given Documented by: Caspofungin 35 mg/ Sodium (Chloride) 257 mls @ 250 mls/hr IV Q24H [facility]; Protocol Stop: 12/06/20 15:59 Last Infusion: 11/06/20 18:12 Dose: Infused Documented by: Piperacillin Sod/Tazobactam (Sod 4.5 gm/ Dextrose) 120 mls @ 30 mls/hr IV Q12H [facility]; Protocol Stop: 11/09/20 13:59 Last Admin: 11/07/20 13:38 Dose: 30 mls/hr Documented by: Sodium Chloride (Nss 1000ml) 1,000 mls @ 0 mls/hr IV .Q0M PRN PRN Reason: For Hemodialysis Use ONLY Stop: 11/07/20 14:54 Vancomycin HCl 500 mg/ Sodium (Chloride) 110 mls @ 125 mls/hr IV TODAY@1600 ONE; Protocol Stop: 11/07/20 16:52 Midodrine (Midodrine Hcl 10 Mg Tab) 10 mg PO TID@0800,1200,1700 [facility] Stop: 12/06/20 11:59 Last Admin: 11/07/20 13:37 Dose: 10 mg Documented by: Midodrine (Midodrine Hcl 10 Mg Tab) 10 mg PO 09 CHELSEY Stop: 12/06/20 09:14 Last Admin: 11/07/20 10:33 Dose: Not Given Documented by: Miscellaneous (Carbohydrates For Hypoglycemia ) 15 - 30 gm PO UD PRN PRN Reason: Hypoglycemia Treatment Stop: 11/12/20 08:44 Miscellaneous Information (Piperacill/Tazobac Consult Active) 1 ea N/A UD PRN PRN Reason: Consult Stop: 12/02/20 12:44 Miscellaneous Information (Vancomycin Consult Active) 1 ea N/A UD PRN PRN Reason: Consult Stop: 12/03/20 19:36 Oxymetazoline HCl (Oxymetazoline 0.05% 30 Ml Btl) 1 sprays NA Q4H PRN PRN Reason: nosebleed Stop: 12/02/20 22:06 Sterile Water (Tube Feeding Water Flush) 30 ml NG Q4H CHELSEY Stop: 11/27/20 10:19 Last Admin: 11/07/20 13:37 Dose: 30 ml Documented by: PG Care Time/CCT Total # of Minutes Spent Total Time Spent with Patient: Total time spent is greater than 50% in coordination of care (as documented) at patient's floor/unit and/or counseling patient: Coding Level of Care Code 33205 Subseq Hosp Care Lvl 2 Diagnoses Cavitary lesion of lung J98.4 Acute respiratory failure with hypoxemia J96.01 Severe sepsis A41.9; R65.20 Acute kidney injury N17.9 Pneumonia due to 2019 novel coronavirus U07.1; J12.82 Bacterial pneumonia J15.9 Hypotension I95.9 Elevated troponin R77.8 Elevated d-dimer R79.89 Elevated liver enzymes R74.8 Fecal occult blood test positive R19.5 Hyponatremia E87.1 Pneumothorax J93.9
[2020-11-07] MEDS ORDERED: VANCOMYCIN HCL 500 MG in 0.9 % SODIUM CHLORIDE 100 ML IV ONE (16:00)
[2020-11-07] MEDS: CASPOFUNGIN 50 MG in SODIUM CHLORIDE 0.9% 250 ML IV SCH (17:00)
[2020-11-07] MEDS ORDERED: HYDROCORTISONE 1% OINT 30 GM TUBE EXT PRN (22:34)
[2020-11-08] MEDS: PIPERACILLIN/TAZOBACTAM 4.5 GM in DEXTROSE 5% 100 ML IV SCH ×2 (01:23→14:28)
[2020-11-08] MEDS: TUBE FEEDING WATER FLUSH NG SCH ×6 (03:30→21:42)
[2020-11-08 04:41] LABS: Hematocrit (blood only) 22.9 % (37-47); Hemoglobin 7.3 g/dL (12.0-16.0); Mean Corpuscular Hemoglobin 28.7 pg (25-34); Mean Corpuscular Hgb Conc 31.9 g/dL (32-36); Mean Corpuscular Volume 90.2 fL (80-100); Mean Platelet Volume 11.2 fL (7.4-10.4); Platelet Count 480 K/uL (130-400); RDW Coefficient of Variation 18.2 % (11.5-14.5); RDW Standard Deviation 58.1 fL (36.4-46.3); Red Blood Count 2.54 M/uL (4.2-5.4); White Blood Count 29.19 K/uL (4.8-10.8)
[2020-11-08 05:07] LABS: Calcium 9.2 mg/dl (8.5-10.1); Creatinine Clr Calc Pharmacy 7.2 ml/min; Est GFR (African American) 8.9 ml/min; Est GFR (Non-African American) 7.6 ml/min; Magnesium 2.3 mg/dl (1.8-2.4); Potassium 3.9 mmol/L (3.5-5.1)
[2020-11-08 06:41] LABS: Phosphorus 6.2 mg/dl (2.5-4.9)
--- NOTE | 2020-11-08 07:49 | Critical Care Progress Note ---
Date of Service November 08, 2020 Assessment & Plan (1) Pneumonia due to 2019 novel coronavirus: (2) Acute respiratory failure with hypoxemia: (3) Bacterial pneumonia: (4) Acute kidney injury: (5) Metabolic acidosis: (6) Pneumothorax: (7) Pneumomediastinum: (8) Diarrhea: Plan: Zenobia Suero is a 75 yo female with PMHx significant for HTN and anxiety who was admitted on 10/10 with COVID-19 pneumonia. She was transferred to the ICU on 10/11. Required intubation, initiation of vasopressors for shock, ARDS, as well as acute renal failure requiring initiation of hemodialysis. Extubated on 10/25 but remains dialysis-dependent; s/p Permcath placement on 10/31. Also has vocal cord paralysis and may ultimately need PEG tube placement. Patient was changed to tele status on 11/01 but required upgrade to ICU status on 11/02 for worsening respiratory status and persistent need for vasopressors associated with dialysis.Patient was changed to tele status on 11/01 but required upgrade to ICU status on 11/02 for worsening respiratory status and persistent need for vasopressors associated with dialysis. --Acute hypoxemic respiratory failure Due to COVID-19 PNA. S/p high-dose DEXA ARDS. Also had chest tube placed, which was removed on 10/26 with residual pneumomediastinum that will resolve with time. Now with worsening respiratory status that is likely due to post- inflammatory/fibrotic pulmonary changes vs superimposed bacterial infection. - On high flow with as needed BiPAP - Patient is DNI and will not be intubated in setting of further respiratory decompensation - Continue flutter valve and incentive spirometer if tolerated - Patient will need ongoing speech therapy as well as ENT follow-up. --Pneumonia of the right upper lobe Possibility of necrotizing pneumonia is high Patient's nasal MRSA was negative next line given that she got tocilizumab as well as on long-term antibiotics possibility of fungal infection is also the Goal QuantiFERON has been ordered --> following up Earlier in the course completed 5 days of Azithromycin and Rocephin for signs of superimposed bacterial pneumonia. --Acute on chronic blood loss anemia Trend H&H Transfuse to keep hemoglobin greater than 7 --Evidence of vocal cord paralysis Based on speech therapy evaluation. ENT consulted and did not feel that intervention is required at this time. --ILD/fibrotic changes on the lungs Likely from severe COVID-19 pneumonia --End-stage renal disease But has been having issues with dialysis. Patient gets hypoxic whenever she is initiated on dialysis Etiology is quite unclear Continue with dialysis Nephrology on board --Chronic low blood pressure On midodrine --Prophylaxis VTE: Heparin GI: Pepcid Lines: Right permacath, peripheral, Falk Diet: Tube feeds through the NGT Plan: In/out: +1.6 L Afebrile Continue with Zosyn and caspofungin. Vancomycin can be discontinued given nasal MRSA has been negative Septic work-up was negative to date Patient is not able to bring up any phlegm. Unfortunately do not have any AFB culture Patient's hemoglobin is trending down. Blood will be transfused with a trial of dialysis today. If there is issues with dialysis again and comfort measures will be taken into account Palliative care is on board. Note reviewed. On 11/06/2020 I did explain to the patient the need for bronchoscopy in future she was very reluctant about it as she would not like to be intubated Patient will be very high risk for intubation if bronchoscopy is proceeded I will wait for the goal QuantiFERON to come back before proceeding I have personally spent 35 minutes of critical care time in the direct management of this patient. This is a life/limb threatening event. This includes time spent evaluating patient, direct bedside care, chart review, placing orders, interpretation of diagnostic studies, discussion with consultants, patient, and family members, as well as other required patient management activities. This time is exclusive of all separately billable procedures, and teaching time and separate from and in addition to any other critical care service time. Please note the above document was generated using voice recognition software. It may contain grammatical, syntax or spelling errors. Admission and Anticipated Discharge Date Admission Date: October 10, 2020 Subjective Patient seen and examined at bedside. No acute distress, no adverse events overnight. Patient denies any chest pain, no headache, no nausea, no vomiting. Patient was on 50 L, 60% FiO2 saturating 97% Denied any headache. She looks withdrawn. But still better than yesterday. Review of Systems Review of Systems: All systems reviewed & are unremarkable except as noted in Subjective and Unobtainable due to mental health condition Physical Exam Physical Exam: Constitutional: No respiratory distress HEENT: EOMI, PERRLA, positive NGT, dried blood appreciated in the nostrils and around the mouth Respiratory system: Decreased air entry bilaterally, no wheeze, rhonchi, positive crackles bilaterally CVS: S1-S2 positive, no murmurs or gallops, right-sided permacath Abdomen: Soft, nontender, nondistended, positive bowel sounds x4 Extremities: +2 pulses bilaterally radialis/ dorsalis pedis, no cyanosis, no edema Neuro: Awake alert oriented to self and place Psych: Restless G/U: Positive Falk Skin: no rashes, warm and dry Lymphatic: no cervical or axillary lymphadenopathy Results & Data Results & Data ([facility]) Vital Signs (Past 12 Hours) Vital Signs Temp Pulse Pulse Resp BP Pulse Ox 11/08/20 07:02 103 H 24 94 11/08/20 04:36 36.7 C 11/08/20 02:42 103 H 24 96 11/08/20 02:05 101 H 11/08/20 02:01 37.1 C 11/08/20 00:00 101 H 11/07/20 23:17 101 H 22 97 11/07/20 22:32 37.8 C H 11/07/20 21:35 103 H 24 164/88 H 98 11/07/20 20:59 102 H 24 99 11/07/20 20:34 100 H 51 H 165/79 H 86 L 11/07/20 19:53 102 H 32 H 91 11/08/20 09:15 11/08/20 04:31 Coding Level of Care Code Critical Care 1st 30-74 mins Diagnoses Pneumonia due to 2019 novel coronavirus U07.1; J12.82 Acute respiratory failure with hypoxemia J96.01 Bacterial pneumonia J15.9 Acute kidney injury N17.9 Metabolic acidosis E87.2 Pneumothorax J93.9 Pneumomediastinum J98.2 Diarrhea R19.7 Time Spent (min) 35
[2020-11-08] MEDS ORDERED: SEVELAMER HCL 800 MG TABLET PO SCH (08:00)
[2020-11-08] MEDS ORDERED: SODIUM CHLORIDE 0.9% 250 ML IV PRN (08:58)
[2020-11-08] MEDS ORDERED: SODIUM CHLORIDE 0.9% 1000ML 1,000 ML IV PRN (09:02)
[2020-11-08] MEDS ORDERED: EPOETIN ALFA 10,000 UNITS/ML VIAL IV ONE (09:02)
[2020-11-08] MEDS: ESCITALOPRAM OXALATE ORAL SOLN 20 MG/20 ML UDP PO SCH (09:12)
[2020-11-08] MEDS: MIDODRINE HCL 10 MG TAB PO SCH ×4 (09:12→15:55)
[2020-11-08] MEDS: FAMOTIDINE 20 MG TAB PO SCH (09:12)
[2020-11-08] MEDS: HEPARIN SOD 5,000 UNIT/0.5 ML VIAL SQ SCH ×2 (09:12→21:46)
--- NOTE | 2020-11-08 09:52 | Nephrology Progress Note ---
Date of Service November 08, 2020 Assessment & Plan (1) Acute kidney injury: Plan: * Baseline creatinine <1 mg/dL * LENNOX c/w ATN * US without obstruction * Urinalysis 10/15 negative for cellular casts * HD initiated 10/15/20. R IJ THC placed 10/31/20 * Remains anuric. Falk catheter removed * POC discussed w/ ICU team this morning - Will transfuse 1 U PRBC and provide HD today for correction of azotemia and attempt 3L UF. If patient does not tolerate HD, may need to consider transitioning to comfort measures (2) Anemia: Plan: * Hgb continues to drift down despite IV iron and AMARILYS * 1 g IV Venofer completed 11/06/20 * Will transfuse 1 unit PRBC going on HD today (3) Pneumonia due to 2019 novel coronavirus: Plan: * Received Toclizumab 10/13/20 * Completed Dexamethasone therapy * Remdesivir held due to LENNOX, elevated LFT's * Prognosis guarded - COVID pneumonia resulted in mechanical ventilation, pressor support, LENNOX requiring HD * Patient has developed HAP and is on antibiotic therapy. Chest CT 11/05/20 shows bilateral ground glass infiltrates c/w viral pneumonia and a 6.5 cm RUL cavitary lesion suggestive of a necrotizing infection/abscess. Quantiferon gold test sent 11/06/20 * DNR/DNI status (4) Hypotension: Plan: * SBP has been 140 - 160 mmHg last 24 hours * Continue Midodrine 10 mg po TID today while attempting HD Admission and Anticipated Discharge Date Admission Date: October 10, 2020 Subjective Mrs. Suero remains in the ICU on high flow oxygen and respiratory isolation. Dialysis was terminated 15 min into treatment yesterday due to hypoxia (SaO2 60%) and agitation. Dialysis catheter would not function due to agitation. Review of Systems Review of Systems: Unobtainable Physical Exam Physical Exam: withheld due to COVID + status, respiratory isolation Results & Data ([facility]) Vital Signs (Past 12 Hours) Vital Signs Temp Pulse Pulse Resp Pulse Ox 11/08/20 07:02 103 H 24 94 11/08/20 04:36 36.7 C 11/08/20 02:42 103 H 24 96 11/08/20 02:05 101 H 11/08/20 02:01 37.1 C 11/08/20 00:00 101 H 08/30/21 23:17 101 H 22 97 11/07/20 22:32 37.8 C H Laboratory Results Laboratory Tests 11/08/20 11/08/20 04:31 04:31 WBC 29.19 H Hgb 7.3 L Hct 22.9 L Plt Count 480 H Sodium 136 Potassium 3.9 Chloride 102 Carbon Dioxide 22 BUN 145 H Creatinine 5.18 H* D Glucose 137 H PG Care Time/CCT Total # of Minutes Spent Total Time Spent with Patient: Total time spent is greater than 50% in coordination of care (as documented) at patient's floor/unit and/or counseling patient: Coding Level of Care Code 54988 Subseq Hosp Care Lvl 3 Diagnoses Acute kidney injury N17.9 Anemia D64.9 Pneumonia due to 2019 novel coronavirus U07.1; J12.82 Hypotension I95.9
--- NOTE | 2020-11-08 10:33 | Palliative Care Progress Note ---
Date of Service November 08, 2020 Assessment & Plan (1) Palliative care encounter: Plan: Zenobia continues to be in the ICU and on Hi-Flow. She was interactive with me today. I was able to interact with her and she was able to nod when I asked her if she was tired. I was able to talk to Zenobia and explain what was happening. She agreed that she is getting tired. We talked about trialing one more dialysis session today at 2PM with hopes to have time with family tomorrow at the bedside. She nodded. We talked about transitioning her to comfort measures and keeping her comfortable as she . She nodded when I asked if she was ready for that. We talked about her sister coming to visit and she nodded when I asked if she would like MARISELA and Jess by her side. I talked to MARISELA, her , on the phone at [phone]. We discussed that hemodialysis is planned for today; however, it was clear that she did not tolerate it last time. He has called all family and her twin sister is en route via car from [place]. She is expected to be in [place] overnight. We talked about a transition to comfort measures which MARISELA is in support of when Jess, her sister arrives. Goal is to attempt hemodialysis today and transition to comfort measures tomorrow. If she does not tolerate dialysis, would suggest MARISELA comes in today and transition to comfort today. If she takes her oxygen off, her saturation declines to the mid 60's. MARISELA is aware that she may decline rapidly, regardless. As stated yesterday, a Quantum Aakash Gold has been sent for tuberculosis rule out. This will take one week, now 6 days, to process and she will remain on airborne isolation until a negative result. After discussion with Aleena Mcgraw, Infection Control. If the patient does end up transitioning to comfort measures prior to the Quantiferron Gold results, the patient can be masked with a procedural mask while on Hi-Flow for 30 minutes prior to the patients going into the room. The patients is to wear a procedural mask. If the patient is on Bipap, visitation can not be conducted. I will contact MARISELA to advise. Palliative Medicine will follow. (2) Acute respiratory failure with hypoxemia: (3) Pneumonia due to 2019 novel coronavirus: (4) Acute kidney injury: (5) Severe sepsis: Admission and Anticipated Discharge Date Admission Date: October 10, 2020 Subjective Mrs. Suero remains in the ICU on high flow oxygen and respiratory isolation for TB rule out. Pt on Hi-Flow 50L 60%. Patient remains intermittently grimacing and frustrated with care. Plan for HD attempt today, goal to transition to [employer] tomorrow. Review of Systems Review of Systems: [place] [facility] Assessment Scale: Pain: 1/3 AD SOB: 2/3 AD Anxiety: 1/3 AD Palliative Performance Scale: 20% Physical Exam Constitutional: + frail appearing, + disheveled and + lethargic Respiratory: + uses accessory muscles Auscultation: + diminished lung sounds and + rhonchi Cardiovascular: Rate/Rhythm: regular rhythm and + tachycardic Heart Sounds: normal S1 and normal S2 Gastrointestinal (Abdomen): Inspection/Auscultation: abdomen normal to inspection Skin: + ecchymosis and + pallor Neurologic: awake Results & Data ([facility]) Vital Signs (Past 12 Hours) Vital Signs Temp Pulse Pulse Resp Pulse Ox 11/08/20 07:02 103 H 24 94 11/08/20 04:36 36.7 C 11/08/20 02:42 103 H 24 96 11/08/20 02:05 101 H 11/08/20 02:01 37.1 C 11/08/20 00:00 101 H 11/07/20 23:17 101 H 22 97 11/07/20 22:32 37.8 C H PG Care Time/CCT Total # of Minutes Spent Total Time Spent with Patient: Total time spent is greater than 50% in coordination of care (as documented) at patient's floor/unit and/or counseling patient: 45 minutes with >50% of that time spent assessing the patient, discussing goals of care with family, and collaborating with IDT Coding Level of Care Code 96305 Subseq Hosp Care Lvl 3 Diagnoses Palliative care encounter Z51.5 Acute respiratory failure with hypoxemia J96.01 Pneumonia due to 2019 novel coronavirus U07.1; J12.82 Acute kidney injury N17.9 Severe sepsis A41.9; R65.20 Time Spent (min) 45
[2020-11-08] MEDS: NOVASOURCE RENAL 2.0 CAL 1000ML BAG NG SCH (12:15)
[2020-11-08 12:18] LABS: Hematocrit (blood only) 22.5 % (37-47); Hemoglobin 7.1 g/dL (12.0-16.0)
[2020-11-08] MEDS: ASPIRIN 81 MG CHEW NG SCH (12:18)
--- NOTE | 2020-11-08 12:35 | Hospitalist Progress Note ---
Date of Service November 08, 2020 Assessment & Plan (1) Cavitary lesion of lung: Plan: CT scan from November 05 shows a right lung cavitary lesion which was not present on October 27. 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 As noted previously, a superimposed bacterial pneumonia, ARDS, pulmonary hemorrhage, and/or edema could appear similar. There is more confluent consolidation in the right upper lobe with a large, multiloculated, and thick walled cavitary lesion 6.5 x 5 x 4.5 cm. This contains internal fluid/debris and is new from 10/27/2020. This likely represents ne crotizing infection/abscess. prior attending called [facility] to discuss case, transfer would impair too great of a risk, especially with her wishes to not be intubated again no role for surgical intervention worsening prognosis as she is now on Vapotherm and intermittent BIPAP family visit tomorrow, likely move to comfort measures after that (2) Acute respiratory failure with hypoxemia: Plan: Acute respiratory failure with hypoxemia 2/2 Covid pneumonia complicated by renal failure, with escalation of oxygen to vapotherm, now on airborne precautions, gold quanterferone sent and will keep isolation restarted on Zosyn 11/02/20, procalcitonin 7.7 on 11/03, will added vancomycin, caspofungin started, quanterferon gold sent 11/03 bio fire -11/03 Covid antibodies are present and biofire negative on 11/03/20 Earlier the patient completed prior 5-day course of azithromycin/Rocephin Patient was dialyzed on 11/05 with the help of pressors to support blood pressure during sessions did not tolerated HD 11/07, went in to worsening respiratory distress requiring BIPAP Remdesivir - first dose given on 10/10. Received dose #2 on 10/11. - Due to development of LENNOX and transaminitis the remdesivir was stopped after 2nd dose. -s/p Tocilizumab - 10/13/20. -previously was on extended Decadron protocol, last dose was 10/30 Date of intubation: 10/16/2020- extubated 10/25/20, now is DNI this was reconfirmed with pt on 11/02/20 remains in ICU due to hypoxic respiratory failure, complexity of care, needing Levophed intermittently, especially with HD and now lung abscess now on BIPAP and/or high flow, patient has stated clearly she does not want intubated or to be kept alive on machines palliative care assisting with transitioning to comfort measures in near future, family to visit tomorrow (3) Severe sepsis: Plan: -2nd to COVID-19 pneumonia. now with recurrence of sepsis with tachycardia, lower bp and hypoxia lung abscess found on imaging 11/05 -Intermittent pressor support during dialysis despite midodrine Patient on vancomycin, Zosyn and caspofungin therapy worsening prognosis the past few days (4) Acute kidney injury: Plan: -ATN due to COVID-19 (and/or remdesivir) with resulting severe acute renal failure. -Temporary HD catheter placed 10/15. -tunneled HD catheter placed 10/31/2020 as she is not showing signs of recovery Nephrology has been following, placed huston 11/06 did not tolerated HD on 11/07 try HD today with unit of PRBC due to anemia, unsure if she will tolerate it she is willing to try with her goal of see family tomorrow (5) Pneumonia due to 2019 novel coronavirus: Plan: - completed treatment, cxr changes 11/02 however bio fire negative immunoglobulins, serum positive for immunity (6) Bacterial pneumonia: Plan: Zosyn and Vanco and caspofungin. did have negative nasal mrsa test but with concern for necrotizing pneumonia will keep vancomycin (7) Hypotension: Plan: 2nd to severe sepsis, COVID-19, medications (propofol), etc. Continue levophed PRN, with HD, Midodrine 5mg TID (8) Elevated troponin: Plan: -Peak trop 0.154. -2nd to myocardial demand ischemia. Repeat troponin is negative (9) Elevated d-dimer: Plan: -4890 on admission (10/10/20). -LE dopplers negative for DVT b/l. -Did not initially perform CT angiogram due to renal failure, have alternate issues for tachycardia and hypoxia (10) Elevated liver enzymes: Plan: -transaminitis 2nd to COVID-19. -ast/alt low level elevation due to illness (11) Fecal occult blood test positive: Plan: -Melanic stools on second day of admission. -Cont PPI for GI prophylaxis. - transfused one unit PRBC on 10/24 Hb down today, plan for PRBC with HD today (12) Hyponatremia: Plan: -resolved (13) Pneumothorax: Plan: Chest tube placed by critical care team, removed 10/26, no residual PTX Plan: -appreciate ICU and palliative care assistance -family meeting with palliative took place on 10/19 -- patient made DNR, no transfer to tertiary care- re confirmed DNR/DNI on 11/02/20 but willing for transfer if needed palliative care again speaking with family, and twin sister to visit tomorrow, children to make phone calls into patient likely move to comfort measures once family has visited Admission and Anticipated Discharge Date Admission Date: October 10, 2020 Subjective patient is very frail, struggling on high flow, cannot take it off for a second, she dropped to 60's earlier this AM when she took it off tentative plans are for HD this afternoon with a unit of PRBC, not sure if she will tolerate her mouth is very dry, she cannot speak, lethargic palliative care spoke with family, her and her twin sister are coming in to see her tomorrow will transition to comfort measures after they visit Review of Systems Review of Systems: Unobtainable due to cognitive status (lethargic, frail, cannot speak) Physical Exam Constitutional: well developed, + ill appearing, + frail appearing and + lethargic ENMT: Mouth: + dry oral mucous membranes (very dry) Neck: trachea midline, no thyromegaly Respiratory: + labored breathing (on high flow), + uses accessory muscles and + tachypneic Auscultation: no crackles, no rales and no wheezes Cardiovascular: RRR, no murmur, no edema Gastrointestinal (Abdomen): normal bowel sounds, soft, nontender, no hepatosplenomegaly Skin: no rashes, warm and dry Neurologic: CN's II-XI intact bilaterally; no focal motor deficits and + not awake Speech / Cognition: + abnormal speech (hoarse voice) Psychiatric: Orientation: + not alert Results & Data Results & Data ([facility]) Vital Signs (Past 12 Hours) Vital Signs Temp Pulse Pulse Resp BP Pulse Ox 11/08/20 11:33 94 H 26 H 91 11/08/20 10:34 94 H 34 H 177/101 H 98 11/08/20 09:34 100 H 18 156/72 H 91 11/08/20 09:00 37.1 C 11/08/20 08:34 100 H 25 H 145/68 H 89 L 11/08/20 07:35 101 H 17 128/81 94 11/08/20 07:02 103 H 24 94 11/08/20 04:36 36.7 C 11/08/20 02:42 103 H 24 96 11/08/20 02:05 101 H 11/08/20 02:01 37.1 C Laboratory Results Laboratory Results - last 24 hr 11/08/20 11/08/20 11/08/20 01:30 04:31 04:31 WBC 29.19 H RBC 2.54 L Hgb 7.3 L Hct 22.9 L MCV 90.2 MCH 28.7 MCHC 31.9 L RDW Std Deviation 58.1 H RDW Coeff of Roxanna 18.2 H Plt Count 480 H MPV 11.2 H Absolute Nucleated RBC 0.60 H Nucleated RBC % (auto) 2.0 Sodium 136 Potassium 3.9 Chloride 102 Carbon Dioxide 22 Anion Gap 12.0 H BUN 145 H Creatinine 5.18 H* D Est Cr Clr Drug Dosing 7.2 Est GFR ( Amer) 8.9 Est GFR (Non-Af Amer) 7.6 BUN/Creatinine Ratio 28.0 H Glucose 137 H POC Glucose 131 H Calcium 9.2 Phosphorus 6.2 H D Magnesium 2.3 Random Vancomycin Blood Type Antibody Screen Crossmatch 11/08/20 11/08/20 11/08/20 04:31 04:33 09:14 WBC RBC Hgb Hct MCV MCH MCHC RDW Std Deviation RDW Coeff of Roxanna Plt Count MPV Absolute Nucleated RBC Nucleated RBC % (auto) Sodium Potassium Chloride Carbon Dioxide Anion Gap BUN Creatinine Est Cr Clr Drug Dosing Est GFR ( Amer) Est GFR (Non-Af Amer) BUN/Creatinine Ratio Glucose POC Glucose 142 H Calcium Phosphorus Magnesium Random Vancomycin 17.1 Blood Type O Positive Antibody Screen NEGATIVE Crossmatch See Detail 11/08/20 09:15 WBC RBC Hgb 7.1 L Hct 22.5 L MCV MCH MCHC RDW Std Deviation RDW Coeff of Roxanna Plt Count MPV Absolute Nucleated RBC Nucleated RBC % (auto) Sodium Potassium Chloride Carbon Dioxide Anion Gap BUN Creatinine Est Cr Clr Drug Dosing Est GFR ( Amer) Est GFR (Non-Af Amer) BUN/Creatinine Ratio Glucose POC Glucose Calcium Phosphorus Magnesium Random Vancomycin Blood Type Antibody Screen Crossmatch Medications Administered Current Inpatient Medications Aspirin (Aspirin 81 Mg Chew) 81 mg NG QDL [facility] Stop: 11/16/20 11:29 Last Admin: 11/08/20 12:18 Dose: 81 mg Documented by: Clonazepam (Clonazepam 0.25 Mg Tab) 0.25 mg PO DAILY PRN PRN Reason: Agitation Stop: 11/26/20 08:59 Dextrose (Dextrose 50% 50 Ml Syringe) 25 - 50 ml IV UD PRN; Protocol PRN Reason: Hypoglycemia Protocol Stop: 11/12/20 08:44 Enteral Nutritional Formula (Novasource Renal 2.0 Moustapha 1000ml Bag) 1,000 ml NG CONT [facility]; Protocol Stop: 11/27/20 10:18 Last Admin: 11/08/20 12:15 Dose: 1,000 ml Documented by: Escitalopram Oxalate (Escitalopram Oxalate Oral Soln 20 Mg/20 Ml Udp) 20 mg PO QAM [facility] Stop: 11/16/20 10:59 Last Admin: 11/08/20 09:12 Dose: 20 mg Documented by: Famotidine (Famotidine 20 Mg Tab) 20 mg PO Q2D [facility] Stop: 12/10/20 08:59 Glucagon (Glucagon For Inj 1 Mg Vial) 1 mg SQ UD PRN; Protocol PRN Reason: Hypoglycemia Protocol Stop: 11/12/20 08:44 Glucose (Glucose 40% Gel 15 Gm Tube) 15 - 30 gm PO UD PRN; Protocol PRN Reason: Hypoglycemia Protocol Stop: 11/12/20 08:44 Glucose (Glucose 10 Tabs/Tube) 4 - 8 tabs PO UD PRN; Protocol PRN Reason: Hypoglycemia Protocol Stop: 11/12/20 08:44 Heparin Sodium (Porcine) (Heparin Sod 5,000 Unit/0.5 Ml Vial) 5,000 units SQ Q12 [facility] Stop: 11/24/20 11:14 Last Admin: 11/08/20 09:12 Dose: 5,000 units Documented by: Norepinephrine Bitartrate (Levophed/D5w) 8 mg in 508 mls @ 0 mls/hr IV .Q0M [facility]; Protocol Stop: 12/03/20 09:44 Last Admin: 11/07/20 05:28 Dose: Not Given Documented by: Piperacillin Sod/Tazobactam (Sod 4.5 gm/ Dextrose) 120 mls @ 30 mls/hr IV Q12H [facility]; Protocol Stop: 11/09/20 13:59 Last Infusion: 11/08/20 06:22 Dose: Infused Documented by: Caspofungin 50 mg/ Sodium (Chloride) 260 mls @ 260 mls/hr IV Q24H [facility] Stop: 12/07/20 15:59 Last Infusion: 11/07/20 18:06 Dose: Infused Documented by: Sodium Chloride (Nss) 250 mls @ 15 mls/hr IV .[id number] PRN PRN Reason: For Transfusion Stop: 11/08/20 18:58 Sodium Chloride (Nss 1000ml) 1,000 mls @ 0 mls/hr IV .Q0M PRN PRN Reason: For Hemodialysis Use ONLY Stop: 11/08/20 15:01 Midodrine (Midodrine Hcl 10 Mg Tab) 10 mg PO TID@0800,1200,1700 [facility] Stop: 12/06/20 11:59 Last Admin: 11/08/20 12:15 Dose: 10 mg Documented by: Miscellaneous (Carbohydrates For Hypoglycemia ) 15 - 30 gm PO UD PRN PRN Reason: Hypoglycemia Treatment Stop: 11/12/20 08:44 Miscellaneous Information (Piperacill/Tazobac Consult Active) 1 ea N/A UD PRN PRN Reason: Consult Stop: 12/02/20 12:44 Oxymetazoline HCl (Oxymetazoline 0.05% 30 Ml Btl) 1 sprays NA Q4H PRN PRN Reason: nosebleed Stop: 12/02/20 22:06 Sterile Water (Tube Feeding Water Flush) 30 ml NG Q4H [facility] Stop: 11/27/20 10:19 Last Admin: 11/08/20 12:15 Dose: 30 ml Documented by: PG Care Time/CCT Total # of Minutes Spent Total Time Spent with Patient: Total time spent is greater than 50% in coordination of care (as documented) at patient's floor/unit and/or counseling patient: Coding Level of Care Code 20372 Subseq Hosp Care Lvl 3 Diagnoses Cavitary lesion of lung J98.4 Acute respiratory failure with hypoxemia J96.01 Severe sepsis A41.9; R65.20 Acute kidney injury N17.9 Pneumonia due to 2019 novel coronavirus U07.1; J12.82 Bacterial pneumonia J15.9 Hypotension I95.9 Elevated troponin R77.8 Elevated d-dimer R79.89 Elevated liver enzymes R74.8 Fecal occult blood test positive R19.5 Hyponatremia E87.1 Pneumothorax J93.9
[2020-11-08] MEDS: CASPOFUNGIN 50 MG in SODIUM CHLORIDE 0.9% 250 ML IV SCH (15:54)
--- NOTE | 2020-11-08 16:47 | Nephrology Progress Note ---
Date of Service November 08, 2020 Assessment & Plan (1) Acute kidney injury: Plan: I have spoken w/ the ICU team this afternoon (Marisol Barr, CODI). Mr. Suero has visited with his today. He understands the gravity of her illness. He has chosen to transition her to comfort measures, remove her feeding tube and stop dialysis. HD RN was updated by the ICU staff and orders were cancelled. Admission and Anticipated Discharge Date Admission Date: October 10, 2020 Results & Data ([facility]) Vital Signs (Past 12 Hours) Vital Signs Temp Pulse Pulse Resp BP Pulse Ox 11/08/20 15:35 89 22 152/87 H 100 11/08/20 14:34 87 23 153/96 H 97 11/08/20 14:27 91 H 17 99 11/08/20 13:34 87 26 H 155/93 H 94 11/08/20 12:35 106 H 36 H 140/65 84 L 11/08/20 11:35 93 H 26 H 160/62 H 90 11/08/20 11:33 94 H 26 H 91 11/08/20 10:34 94 H 34 H 177/101 H 98 11/08/20 09:34 100 H 18 156/72 H 91 11/08/20 09:00 37.1 C 11/08/20 08:34 100 H 25 H 145/68 H 89 L 11/08/20 07:35 101 H 17 128/81 94 11/08/20 07:02 103 H 24 94 PG Care Time/CCT Total # of Minutes Spent Total Time Spent with Patient: Total time spent is greater than 50% in coordination of care (as documented) at patient's floor/unit and/or counseling patient: Coding Level of Care Code None Diagnoses Acute kidney injury N17.9
[2020-11-08] MEDS: NOREPINEPHRINE/D5W 8 MG/508 ML BAG IV SCH (21:45)
[2020-11-09] MEDS: TUBE FEEDING WATER FLUSH NG SCH ×3 (00:25→09:49)
[2020-11-09] MEDS: PIPERACILLIN/TAZOBACTAM 4.5 GM in DEXTROSE 5% 100 ML IV SCH (02:20)
[2020-11-09 05:32] LABS: Hematocrit (blood only) 26.9 % (37-47); Hemoglobin 8.8 g/dL (12.0-16.0); Mean Corpuscular Hemoglobin 27.6 pg (25-34); Mean Corpuscular Hgb Conc 32.7 g/dL (32-36); Mean Corpuscular Volume 84.3 fL (80-100); Mean Platelet Volume 10.5 fL (7.4-10.4); Nucleated RBC # (auto) 0.21 K/uL (0-0); Nucleated RBC % (auto) 0.8 %; Platelet Count 425 K/uL (130-400); RDW Coefficient of Variation 19.1 % (11.5-14.5); RDW Standard Deviation 56.9 fL (36.4-46.3); Red Blood Count 3.19 M/uL (4.2-5.4); White Blood Count 27.11 K/uL (4.8-10.8)
[2020-11-09 06:24] LABS: BUN Creatinine Ratio 25.8 (10-20); Calcium 9.7 mg/dl (8.5-10.1); Creatinine Clr Calc Pharmacy 5.9 ml/min; Est GFR (African American) 6.8 ml/min; Est GFR (Non-African American) 5.9 ml/min; Potassium 4.9 mmol/L (3.5-5.1)
[2020-11-09] MEDS: MIDODRINE HCL 10 MG TAB PO SCH ×2 (08:48→14:49)
[2020-11-09] MEDS: ESCITALOPRAM OXALATE ORAL SOLN 20 MG/20 ML UDP PO SCH (08:48)
[2020-11-09] MEDS: HEPARIN SOD 5,000 UNIT/0.5 ML VIAL SQ SCH (08:49)
--- NOTE | 2020-11-09 08:57 | Nephrology Progress Note ---
Date of Service November 09, 2020 Assessment & Plan (1) Acute kidney injury: Plan: Spoke w/ [employer] this morning. Patient remains on comfort measures. Family is en route to be with her. Will sign off. Please call if further assistance is needed Admission and Anticipated Discharge Date Admission Date: October 10, 2020 Results & Data ([facility]) Vital Signs (Past 12 Hours) Vital Signs Pulse Pulse Resp BP Pulse Ox 11/09/20 07:00 93 H 25 H 86 L 11/09/20 05:56 90 20 137/73 90 11/09/20 04:57 90 23 157/78 H 94 11/09/20 03:30 86 24 99 11/09/20 03:00 87 14 98 11/09/20 02:55 89 30 H 97 11/09/20 02:42 95 H 15 136/104 H 87 L 11/09/20 02:11 86 19 162/68 H 97 11/09/20 01:41 89 25 H 156/99 H 88 L 11/09/20 01:11 83 33 H 163/70 H 99 11/09/20 00:41 81 19 156/68 H 96 11/09/20 00:11 75 25 H 142/73 H 95 11/09/20 00:00 81 11/08/20 23:41 82 21 157/72 H 92 11/08/20 23:11 81 22 154/69 H 94 11/08/20 22:41 82 21 133/73 96 11/08/20 22:17 80 22 96 11/08/20 22:11 79 15 161/80 H 97 11/08/20 21:41 80 26 H 154/69 H 98 11/08/20 21:11 77 17 151/71 H 98 PG Care Time/CCT Total # of Minutes Spent Total Time Spent with Patient: Total time spent is greater than 50% in coordination of care (as documented) at patient's floor/unit and/or counseling patient: Coding Level of Care Code None Diagnoses Acute kidney injury N17.9
[2020-11-09] MEDS: NOVASOURCE RENAL 2.0 CAL 1000ML BAG NG SCH (09:48)
[2020-11-09] MEDS: ASPIRIN 81 MG CHEW NG SCH (10:53)
--- NOTE | 2020-11-09 11:47 | Critical Care Progress Note ---
Date of Service November 09, 2020 Assessment & Plan (1) Pneumonia due to 2019 novel coronavirus: (2) Acute respiratory failure with hypoxemia: (3) Bacterial pneumonia: (4) Acute kidney injury: (5) Metabolic acidosis: (6) Pneumothorax: (7) Pneumomediastinum: (8) Diarrhea: Plan: Zenobia Suero is a 75 yo female with PMHx significant for HTN and anxiety who was admitted on 10/10 with COVID-19 pneumonia. She was transferred to the ICU on 10/11. Required intubation, initiation of vasopressors for shock, ARDS, as well as acute renal failure requiring initiation of hemodialysis. Extubated on 10/25 but remains dialysis-dependent; s/p Permcath placement on 10/31. Also has vocal cord paralysis and may ultimately need PEG tube placement. Patient was changed to tele status on 11/01 but required upgrade to ICU status on 11/02 for worsening respiratory status and persistent need for vasopressors associated with dialysis.Patient was changed to tele status on 11/01 but required upgrade to ICU status on 11/02 for worsening respiratory status and persistent need for vasopressors associated with dialysis. --Acute hypoxemic respiratory failure Due to COVID-19 PNA. S/p high-dose DEXA ARDS. Also had chest tube placed, which was removed on 10/26 with residual pneumomediastinum that will resolve with time. Now with worsening respiratory status that is likely due to post- inflammatory/fibrotic pulmonary changes vs superimposed bacterial infection. - On high flow with as needed BiPAP - Patient is DNI and will not be intubated in setting of further respiratory decompensation - Continue flutter valve and incentive spirometer if tolerated - Patient will need ongoing speech therapy as well as ENT follow-up. --Pneumonia of the right upper lobe Possibility of necrotizing pneumonia is high Patient's nasal MRSA was negative next line given that she got tocilizumab as well as on long-term antibiotics possibility of fungal infection is also the Goal QuantiFERON has been ordered --> following up Earlier in the course completed 5 days of Azithromycin and Rocephin for signs of superimposed bacterial pneumonia. 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 So far sister of the patient says that she had multiple PPDs while working as a nurse and they were negative. This does put the possibility of TB lower but still cannot be ruled out. --Acute on chronic blood loss anemia Trend H&H Transfuse to keep hemoglobin greater than 7 S/p 1 more unit PRBC 11/08/2020 --Evidence of vocal cord paralysis Based on speech therapy evaluation. ENT consulted and did not feel that intervention is required at this time. --ILD/fibrotic changes on the lungs Likely from severe COVID-19 pneumonia --End-stage renal disease But has been having issues with dialysis. Patient gets hypoxic whenever she is initiated on dialysis Etiology is quite unclear Continue with dialysis Nephrology on board --Chronic low blood pressure On midodrine --Prognosis is very poor --Prophylaxis VTE: Heparin GI: Pepcid Lines: Right permacath, peripheral, Falk Diet: N.p.o. Plan: In/out: + 627 mL. Afebrile On 11/08/2020 patient refused dialysis. Patient did not want corset placed as well as the previous one was clogged. Plan is to move towards palliative approach with the family comes in today. Continue with Zosyn and caspofungin. Vancomycin can be discontinued given nasal MRSA has been negative Septic work-up was negative to date Patient is not able to bring up any phlegm. Unfortunately do not have any AFB culture Palliative care is on board On 11/06/2020 I did explain to the patient the need for bronchoscopy in future she was very reluctant about it as she would not like to be intubated I will wait for the goal QuantiFERON to come back Please note the above document was generated using voice recognition software. It may contain grammatical, syntax or spelling errors.Any formal questions or concerns about the content, text or information contained within the body of this dictation should be directly addressed to the provider for clarification. Admission and Anticipated Discharge Date Admission Date: October 10, 2020 Subjective Patient seen and examined at bedside. She was on CPAP at the time of examination Saturation 97% on 75% FiO2. I went down to 65% Denied any headache, no chest pain, no belly pain. She was breathing in the mid 20s. Review of Systems Review of Systems: All systems reviewed & are unremarkable except as noted in Subjective Physical Exam Physical Exam: Constitutional: No respiratory distress HEENT: EOMI, PERRLA, dried blood appreciated in the nostrils and around the mouth Respiratory system: Decreased air entry bilaterally, no wheeze, no rhonchi, positive crackles bilaterally CVS: S1-S2 positive, no murmurs or gallops, right-sided permacath Abdomen: Soft, nontender, nondistended, positive bowel sounds x4 Extremities: +2 pulses bilaterally radialis/ dorsalis pedis, no cyanosis, no edema Neuro: Awake alert oriented to self and place Psych: Normal mood and affect G/U: Positive Falk Skin: no rashes, warm and dry Lymphatic: no cervical or axillary lymphadenopathy Results & Data Results & Data ([facility]) Vital Signs (Past 12 Hours) Vital Signs Pulse Resp BP Pulse Ox 11/09/20 07:00 93 H 25 H 86 L 11/09/20 05:56 90 20 137/73 90 11/09/20 04:57 90 23 157/78 H 94 11/09/20 03:30 86 24 99 11/09/20 03:00 87 14 98 11/09/20 02:55 89 30 H 97 11/09/20 02:42 95 H 15 136/104 H 87 L 11/09/20 02:11 86 19 162/68 H 97 11/09/20 01:41 89 25 H 156/99 H 88 L 11/09/20 01:11 83 33 H 163/70 H 99 11/09/20 00:41 81 19 156/68 H 96 11/09/20 00:11 75 25 H 142/73 H 95 11/09/20 00:00 81 11/09/20 05:23 11/09/20 05:23 Coding Level of Care Code 18900 Subseq Hosp Care Lvl 2 Diagnoses Pneumonia due to 2019 novel coronavirus U07.1; J12.82 Acute respiratory failure with hypoxemia J96.01 Bacterial pneumonia J15.9 Acute kidney injury N17.9 Metabolic acidosis E87.2 Pneumothorax J93.9 Pneumomediastinum J98.2 Diarrhea R19.7
[2020-11-09] MEDS ORDERED: LORazepam 0.5 MG/1 ML VIAL IV PRN (12:31)
[2020-11-09] MEDS ORDERED: HYDROmorphone INJ 0.5 MG/0.5 ML SYR IV PRN (12:31)
[2020-11-09] MEDS ORDERED: GLYCOPYRROLATE 0.2 MG/ML VIAL IV PRN (12:31)
[2020-11-09 12:44] LABS: Quantiferon Mitogen-NIL 0.45 IU/mL; Quantiferon NIL 0.03 IU/mL; Quantiferon TB Gold Plus INDETERMINATE (NEGATIVE); Quantiferon TB2-NIL <0.00 IU/mL
--- NOTE | 2020-11-09 12:48 | Palliative Care Progress Note ---
Date of Service November 09, 2020 Assessment & Plan (1) Anxiety: Plan: Lorazepam ordered prn. (2) Palliative care encounter: Plan: I met with her , MARISELA, and twin sister who just arrived from [place]. We reviewed Zenobia's current status and interactions over the last few days where Zenobia has indicated that she does not want reintubation. Her sister tells me that wants to talk with Zenobia to encourage her to go back on the vent. We discussed her significant lung pathology with cavitary lesion, ARDS, pneumonia and progressive hypoxia. Even with reintubation and vent support she would c ontinue to need dialysis for renal failure and has not been able to tolerate this due to hypotension. Despite best efforts, eZnobia is nearing her dying time and has indicated that she would favor a comfort directed approach to her care at this time. MARISELA and Aracely met with Zenobia and communicated with gestures and white board. They are all in agreement that comfort care is appropriate. Zenobia has indicated that she understands plan of care and is comfortable with that. I talked with MARISELA and Aracely about medications to relieve her feelings of anxiety and air hunger. Aracely is concerned that Zenobia will not be awake to know that her loved ones are present. Will start with range of hydromorphone as needed for pain and air hunger. Glycopyrrolate available as needed for secretions. Given her high O2 need, it is likely that she will within minutes to hours after removal of bipap. Family is aware. (3) Acute respiratory failure with hypoxemia: (4) Palliative care encounter: (5) Severe sepsis: (6) Cavitary lesion of lung: (7) Pneumomediastinum: (8) Pneumonia due to 2019 novel coronavirus: Admission and Anticipated Discharge Date Admission Date: October 10, 2020 Subjective Able to communicate with white board. No complaints of pain. On bipap 50L with FiO2 60%. Sats decrease to 70s with movement for pericare. Review of Systems Review of Systems: [place] Symptom Assessment Scale Pain 0/3 Dyspnea 2/3 Anxiety 1/3 Fatigue 3/3 Nausea 0/3 Palliative Performance Score 20% Physical Exam Constitutional: + ill appearing Respiratory: + uses accessory muscles Cardiovascular: Rate/Rhythm: regular rate and regular rhythm Musculoskeletal: Extremities: + muscle atrophy Neurologic: awake; not confused Genitourinary: anuric Results & Data ([facility]) Vital Signs (Past 12 Hours) Vital Signs Pulse Resp BP Pulse Ox 11/09/20 07:00 93 H 25 H 86 L 11/09/20 05:56 90 20 137/73 90 11/09/20 04:57 90 23 157/78 H 94 11/09/20 03:30 86 24 99 11/09/20 03:00 87 14 98 11/09/20 02:55 89 30 H 97 11/09/20 02:42 95 H 15 136/104 H 87 L 11/09/20 02:11 86 19 162/68 H 97 11/09/20 01:41 89 25 H 156/99 H 88 L 11/09/20 01:11 83 33 H 163/70 H 99 11/09/20 00:41 81 19 156/68 H 96 PG Care Time/CCT Total # of Minutes Spent Total Time Spent: 80 Total Time Spent with Patient: Total time spent is greater than 50% in coordination of care (as documented) at patient's floor/unit and/or counseling patient: goals of care, family education and support, symptom management, coordination of care Coding Level of Care Code 24396 Prolonged Care (int'l) Diagnoses Acute respiratory failure with hypoxemia J96.01 Palliative care encounter Z51.5 Palliative care encounter Z51.5 Severe sepsis A41.9; R65.20 Cavitary lesion of lung J98.4 Pneumomediastinum J98.2 Anxiety F41.9 Pneumonia due to 2019 novel coronavirus U07.1; J12.82
[2020-11-09] MEDS ORDERED: ONDANSETRON 4 MG OD TAB SL PRN (13:01)
[2020-11-09] MEDS ORDERED: ONDANSETRON INJ 2 MG/ML 2 ML VIAL IV PRN (13:01)
--- NOTE | 2020-11-09 13:40 | Hospitalist Progress Note ---
Date of Service November 09, 2020 Assessment & Plan (1) Cavitary lesion of lung: Plan: CT scan from November 05 shows a right lung cavitary lesion which was not present on October 27. 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 Patient born and spent the first several years in [place]. Previous PPDs have all been negative. Reported to department of health as potential tuberculosis risk. will take 7 days for Quantiferon gold to come back cannot obtain sputum for AF testing, no sputum production and cannot tolerate bronchoscopy Patient's MARISELA and Sister Alicia arrived for visit. Long discussion regarding risk of tuberculosis versus persistent pulmonary failure from Covid versus other etiology. Family requested in room visit. Discussed risk if this turns out to be tuberculosis. They are aware that the N95 mask is not necessarily protective as they have not been properly fitted. They also understand treatment for tuberculosis and its effect on the body. Discussed that most patients are not able to tolerate treatment. They stated understanding and pursued visit. (2) Acute respiratory failure with hypoxemia: Plan: Patient has completed full course of treatment for Covid pneumonia including remdesivir, Decadron, Tocilizumab * Treatment initiated 10/10/2020 * Also completed 5-day course of azithromycin and Rocephin * Patient now outside of 21-day isolation window * Negative bio fire a 2620 Acute respiratory failure with hypoxemia 2/2 Covid pneumonia complicated by renal failure, with escalation of oxygen to vapotherm, now on airborne preca utions, gold quanterferone sent and will keep isolation restarted on Zosyn 11/02/20, procalcitonin 7.7 on 11/03, will added vancomycin, caspofungin started, quanterferon gold sent 11/03 bio fire -11/03 Covid antibodies are present and biofire negative on 11/03/20 Earlier the patient completed prior 5-day course of azithromycin/Rocephin Patient was dialyzed on 11/05 with the help of pressors to support blood pressure during sessions did not tolerated HD 11/07, went in to worsening respiratory distress requiring BIPAP Remdesivir - first dose given on 10/10. Received dose #2 on 10/11. - Due to development of LENNOX and transaminitis the remdesivir was stopped after 2nd dose. -s/p Tocilizumab - 10/13/20. -previously was on extended Decadron protocol, last dose was 10/30 Date of intubation: 10/16/2020- extubated 10/25/20, now is DNI this was reconfirmed with pt on 11/02/20 * Long discussion with and twin sister today. Continue DNR/DNI status. * Convert to comfort care measures this afternoon remains in ICU due to hypoxic respiratory failure, complexity of care, needing Levophed intermittently, especially with HD and now lung abscess Patient now refusing BiPAP and not tolerating high flow well Transition to nasal cannula with comfort care later this afternoon. Appreciate input from palliative care and respiratory therapy (3) Severe sepsis: Plan: -2nd to COVID-19 pneumonia. now with recurrence of sepsis with tachycardia, lower bp and hypoxia lung abscess found on imaging 11/05 -Intermittent pressor support during dialysis despite midodrine Patient on vancomycin, Zosyn and caspofungin therapy worsening prognosis the past few days Transition to comfort care today and discontinue all antibiotics (4) Acute kidney injury: Plan: -ATN due to COVID-19 (and/or remdesivir) with resulting severe acute renal failure. -Temporary HD catheter placed 10/15. -tunneled HD catheter placed 10/31/2020 as she is not showing signs of recovery Nephrology has been following, placed huston 11/06 Not tolerating hemodialysis At this time will discontinue further attempts and transition to comfort care later today. Elevated BUN and creatinine (5) Pneumonia due to 2019 novel coronavirus: Plan: - completed treatment, cxr changes 11/02 however bio fire negative immunoglobulins, serum positive for immunity Discontinue all antibiotics today and transition to comfort care (6) Bacterial pneumonia: Plan: Zosyn and Vanco and caspofungin. did have negative nasal mrsa test but with concern for necrotizing pneumonia will keep vancomycin Discontinue all antibiotics and transition to comfort care (7) Hypotension: Plan: 2nd to severe sepsis, COVID-19, medications (propofol), etc. Discontinue all medications and transition to comfort care (8) Elevated troponin: Plan: -Peak trop 0.154. Most likely due to myocardial demand ischemia. Repeat troponin is negative (9) Elevated d-dimer: Plan: -4890 on admission (10/10/20). -LE dopplers negative for DVT b/l. -Did not initially perform CT angiogram due to renal failure, have alternate issues for tachycardia and hypoxia (10) Elevated liver enzymes: Plan: -transaminitis 2nd to COVID-19. -ast/alt low level elevation due to illness (11) Fecal occult blood test positive: Plan: -Melanic stools on second day of admission. -Cont PPI for GI prophylaxis. - transfused one unit PRBC on 10/24 No further transfusions. Change to comfort care measures only (12) Hyponatremia: Plan: -resolved (13) Pneumothorax: Plan: Resolved Chest tube placed by critical care team, removed 10/26, no residual PTX Plan: -appreciate ICU and palliative care assistance -family meeting with palliative took place on 10/19 -- patient made DNR, no transfer to tertiary care- re confirmed DNR/DNI on 11/02/20 but willing for transfer if needed Patient visited by and twin sister today. All family members that have requested Zoom session or to speak with her by phone have done so. Transition to comfort care today Care coordinated with palliative care. Admission and Anticipated Discharge Date Admission Date: October 10, 2020 Subjective Attending: Dr. Mcintosh Patient seen and examined in room 105. She is alert oriented and currently with high flow nasal cannula. FiO2 of 60% with 50 L/min volume. Patient is extremely rhonchorous. She whispers and seems to be appropriate with her answers. Clotted blood in her posterior oropharynx makes it difficult for her to vocalize. She denies any pain. No chest pain or tightness. She is struggling with her breathing even with a high flow O2. Previously she was on positive air pressure support and she request not to go back on this. Long discussion with Sister Alicia and MARISELA. Plan is to convert to comfort care this afternoon. All family members have had the chance to have Zoom session or telephone communication with the patient. The patient is currently being ruled out for tuberculosis. She was born and raised initially in [place]. She has no history of tuberculosis that she or the family are aware of. She also has no history of treatment for tuberculosis. Visitation was granted to the and twin sister due to end-of-life discussion. and sister were N95 masks during the visit but were educated on the fact that this will not necessarily protect them from tubercul osis. The risk of visitation was explicitly discussed. Understanding the risk, but the and the sister requested visitation in the room. This was granted. Communication with infection control, L D RN, supervisor microfilm duplicating unit, and respiratory therapy all ensued. Review of Systems Review of Systems: All systems reviewed & are unremarkable except as noted in Subjective Physical Exam Physical Exam: GENERAL : Patient appears acutely ill. She does have some level of distress. Using accessory muscles for respiration. EYES: No icterus, gaze conjugate. Pupils equal round. NOSE: Dried blood in both nares. No appreciation of active epistaxis MOUTH: Mucosa dry NECK: Supple LUNGS: Bilateral rhonchi. Poor inspiratory effort. Poor cough effort. Respirations at 28 respirations per minute HEART: Regular, rate controlled at 88 bpm ABDOMEN: Soft, NT, ND, BS Present EXTREMITIES: No LE edema, pedal pulses intact NEURO: Alert and oriented to person place and time. Extremely weak. Results & Data Results & Data ([facility]) Vital Signs (Past 12 Hours) Vital Signs Pulse Resp BP Pulse Ox 11/09/20 07:00 93 H 25 H 86 L 11/09/20 05:56 90 20 137/73 90 11/09/20 04:57 90 23 157/78 H 94 11/09/20 03:30 86 24 99 11/09/20 03:00 87 14 98 11/09/20 02:55 89 30 H 97 11/09/20 02:42 95 H 15 136/104 H 87 L 11/09/20 02:11 86 19 162/68 H 97 11/09/20 01:41 89 25 H 156/99 H 88 L Laboratory Results 11/09/20 05:23 11/09/20 05:23 Diagnostic Findings No new diagnostic imaging PG Care Time/CCT Total # of Minutes Spent Total Time Spent with Patient: Total time spent is greater than 50% in coordination of care (as documented) at patient's floor/unit and/or counseling patient: 60 minutes Coding Level of Care Code 18598 Subseq Hosp Care Lvl 3 Diagnoses Cavitary lesion of lung J98.4 Acute respiratory failure with hypoxemia J96.01 Severe sepsis A41.9; R65.20 Acute kidney injury N17.9 Pneumonia due to 2019 novel coronavirus U07.1; J12.82 Bacterial pneumonia J15.9 Hypotension I95.9 Elevated troponin R77.8 Elevated d-dimer R79.89 Elevated liver enzymes R74.8 Fecal occult blood test positive R19.5 Hyponatremia E87.1 Pneumothorax J93.9 Time Spent (min) 60
[2020-11-09] MEDS: HYDROmorphone INJ 0.5 MG/0.5 ML SYR IV PRN ×2 (13:59→20:30)
[2020-11-10] MEDS: HYDROmorphone INJ 0.5 MG/0.5 ML SYR IV PRN ×5 (01:48→15:07)
--- NOTE | 2020-11-10 08:07 | Billing Data ---
Date of Service November 09, 2020 Note that this was for Raf FREIRE, he spent 60 minutes with the patient and her family, long discussion regarding goals of care, transitioning to comfort measures. He discussed care with palliative care team, ICU staff as well as adminstration to make sure patient's family could be at the bedside with her. Extended care time is 30 minutes. [place]oding [place] [address] Subseq Hosp Care Lvl 3 (25 - SIGNIFICANT, SEPARATELY IDENTIFIABLE ) Patient Type Established
[2020-11-10] MEDS ORDERED: FAMOTIDINE 20 MG TAB PO SCH (09:00)
--- NOTE | 2020-11-10 11:37 | Palliative Care Progress Note ---
Date of Service November 10, 2020 Assessment & Plan (1) Air hunger: Plan: Discussed low dose hydromorphone infusion versus routine dosing. Both Zenobia and her sister indicate that they would not want infusion at this time. Aracely is very much wanting Zenobia to be aware as long as possible. Will order hydromorphone routinely every three hours as Aracely feels that medication starts to wear off before four hours and we want to avoid peaks and troughs. (2) Increased tracheal secretions: Plan: Continue glycopyrrolate (3) Palliative care encounter: Plan: Plan of care is comfort measures only. She is likely to within the next day or two. Family is at bedside. They are aware and comfortable with plan. Admission and Anticipated Discharge Date Admission Date: October 10, 2020 Subjective Awake. Nods to questions. Appears to be in distress. Last dose of hydromorphone 6am. Her sister has been asking for hydromorphone about every four hours. Review of Systems Review of Systems: [place] Symptom Assessment Scale Pain 2/3 Dyspnea 1/3 Anxiety 0/3 Drowsiness 1/3 Palliative Performance Score 20% Physical Exam Constitutional: + ill appearing; + uncomfortable Respiratory: + labored breathing and + uses accessory muscles audible rhonchi, moist cough Musculoskeletal: Extremities: + muscle atrophy Neurologic: awake Genitourinary: anuric Results & Data ([facility]) Vital Signs (Past 12 Hours) Vital Signs Temp Pulse Pulse Resp BP Pulse Ox 11/10/20 10:44 97.7 F 116 H 117/55 L 55 L 11/10/20 10:30 36 H 11/09/20 23:30 95 H 22 PG Care Time/CCT Total # of Minutes Spent Total Time Spent: 35 Total Time Spent with Patient: Total time spent is greater than 50% in coordination of care (as documented) at patient's floor/unit and/or counseling patient:symptom management, family education and support Coding Level of Care Code 31221 Subseq Hosp Care Lvl 3 Diagnoses Air hunger R09.89 Palliative care encounter Z51.5 Increased tracheal secretions J39.8
[2020-11-10] MEDS: GLYCOPYRROLATE 0.2 MG/ML VIAL IV SCH ×2 (12:17→15:38)
[2020-11-10] MEDS ORDERED: STAT IV Infusion **Titration per Protocol STA (15:19)
[2020-11-10] MEDS ORDERED: HYDROmorphone/NSS 100 MG/100 ML BAG IV SCH (15:30)
--- NOTE | 2020-11-10 16:17 | Death Pronouncement Note ---
Date of Service November 10, 2020 Pronouncement Note Admission Date Admission Date: October 10, 2020 Date and Time of Date of : 11/10/20 Time of : 15:40 PCOD Preliminary cause of : COVID-19 Contributing Factors (1) Air hunger: (2) Increased tracheal secretions: (3) Palliative care encounter: Hospital Course Hospital Course: see discharge summary for details she peacefully with and sister at the bedside Additional Data Confirmation of : no pulse, no respirations, no heart sounds and pupils fixed and dilated Family: at bedside Attending/PCP notified?: Yes Attending physician: Parminder Mcintosh, DO Was code activated?: No Autopsy requested?: No certified fraud examiner notified?: No Organ bank notified?: No Advance directives: Yes Coding Level of Care Code None Diagnoses Air hunger R09.89 Increased tracheal secretions J39.8 Palliative care encounter Z51.5
--- NOTE | 2020-11-10 16:57 | Discharge Summary ---
Date of Service November 10, 2020 Admission HPI Per Admitting Provider Mrs. Suero is a 75 yo woman who presented to [facility] for evaluation of fever, productive cough and fatigue over the past 3 days. Prior to this, she and her were traveling in their RV - they were visiting each of their 4 adult children who live in different states. To her knowledge, none of her family members were sick. Upon arrival home today, she contacted her PCP for evaluation of her symptoms, but since he was out of town, she was directed to come to the emergency department. She and her had not been vaccinated against COVID 19. Social Hx. 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 She is a non-smoker. She is not immunocompromised. No history of underlying lung disease. In the ED, she was afebrile with a HR of 110 bpm, a RR of 26 and an initial O2 sat of 54. After being placed on BiPAP, O2 sat improved to 97. VBG showing pH of 7.37, pCo2 of 46. Her WBC was elevated to 20 with neutrophil predominance. COVID 19 positive. Her K was low at 3.2. Her creatinine was elevated to 1.4 (baseline is unknown), BUN elevated to 34. Trop elevated to 0.052. Lipase normal. AST elevated to 172, ALT to 176, Alk phos to 134. D dimer to 4890. EKG showing sinus tach. CXR showing multifocal PNA. She was given a dose of Cefepime and 1 liter of NSS. Principal Diagnosis COVID 19 pneumonia Acute respiratory failure Acute kidney injury Discharge Exam no pulses, no respirations, pupils fixed, no breath sounds, no heart tones Discharge Data Allergies Allergy/AdvReac Type Severity Reaction Status Date / Time Sulfa (Sulfonamide Allergy Mild itchy and Verified 10/10/20 20:08 Antibiotics) feeling drained Consultations 10/10/20 19:30 ED Decision to Admit Stat 10/10/20 20:56 Consult Pulmonology Routine 10/11/20 17:47 Consult [employer] Routine 10/13/20 15:04 Consult Nephrology Routine 10/17/20 09:50 Consult Palliative Care Routine 10/28/20 08:06 Consult Otolaryngology (Head and Neck) Routine 10/30/20 08:55 Consult Gastroenterology Routine 10/31/20 07:00 Consult Vascular Surgery Routine 11/03/20 08:40 Consult [employer] Routine 11/09/20 13:01 Consult Palliative Care Routine Procedures Performed Operation Date: 10/31/20 08:00 Actual Procedures p Insertion of Perm Catheter, Right Internal Jugular Approach, Ultrasound Locilization of Right Internal Jugular Vein, Fluoroscopy for Positioning and Removal of Temorary Dialysis Catheter - Brad Mcnair MD Ordered Studies 10/10/20 20:59 US venous doppler LE BI Routine 10/13/20 16:44 US renal/blad retro comp Stat 10/15/20 07:58 US point of care ultrasound Urgent 10/16/20 10:11 US point of care ultrasound Urgent 10/27/20 11:54 CT angio chest PE protocol Stat 10/31/20 08:13 EV cvc 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 did have negative nasal mrsa test but with concern for necrotizing pneumonia will keep vancomycin Discontinue all antibiotics and transition to comfort care (3) Acute kidney injury: -ATN due to COVID-19 (and/or remdesivir) with resulting severe acute renal failure. -Temporary HD catheter placed 10/15. -tunneled HD catheter placed 10/31/2020 as she is not showing signs of recovery Nephrology has been following, placed huston 11/06 Not tolerating hemodialysis At this time will discontinue further attempts and transition to comfort care Elevated BUN and creatinine (4) Severe sepsis: -2nd to COVID-19 pneumonia. now with recurrence of sepsis with tachycardia, lower bp and hypoxia lung abscess found on imaging 11/05 -Intermittent pressor support during dialysis despite midodrine Patient on vancomycin, Zosyn and caspofungin therapy worsening prognosis the past few days Transition to comfort care and discontinue all antibiotics (5) Hypotension: 2nd to severe sepsis, COVID-19, medications (propofol), etc. Discontinue all medications and transition to comfort care (6) Hoarseness of voice: (7) Cavitary lesion of lung: CT scan from November 05 shows a right lung cavitary lesion which was not present on October 27. 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 Patient born and spent the first several years in [place]. Previous PPDs have all been negative. Reported to department of health as potential tuberculosis risk. will take 7 days for Quantiferon gold to come back cannot obtain sputum for AF testing, no sputum production and cannot tolerate bronchoscopy Patient's MARISELA and Sister Alicia arrived for visit. Long discussion regarding risk of tuberculosis versus persistent pulmonary failure from Covid versus other etiology. Family requested in room visit. Discussed risk if this turns out to be tuberculosis. They are aware that the N95 mask is not necessarily protective as they have not been properly fitted. They also understand treatment for tuberculosis and its effect on the body. Discussed that most patients are not able to tolerate treatment. They stated understanding and pursued visit. (8) Acute respiratory failure with hypoxemia: Patient has completed full course of treatment for Covid pneumonia including remdesivir, Decadron, Tocilizumab * Treatment initiated 10/10/2020 * Also completed 5-day course of azithromycin and Rocephin * Patient now outside of 21-day isolation window * Negative bio fire a 2620 Acute respiratory failure with hypoxemia 2/2 Covid pneumonia complicated by renal failure, with escalation of oxygen to vapotherm, now on airborne precautions, gold quanterferone sent and will keep isolation restarted on Zosyn 11/02/20, procalcitonin 7.7 on 11/03, will added vancomycin, caspofungin started, quanterferon gold sent 11/03 bio fire -11/03 Covid antibodies are present and biofire negative on 11/03/20 Earlier the patient completed prior 5-day course of azithromycin/Rocephin Patient was dialyzed on 11/05 with the help of pressors to support blood pressure during sessions did not tolerated HD 11/07, went in to worsening respiratory distress requiring BIPAP Remdesivir - first dose given on 10/10. Received dose #2 on 10/11. - Due to development of LENNOX and transaminitis the remdesivir was stopped after 2nd dose. -s/p Tocilizumab - 10/13/20. -previously was on extended Decadron protocol, last dose was 10/30 Date of intubation: 10/16/2020- extubated 10/25/20, now is DNI this was reconfirmed with pt on 11/02/20 * Long discussion with and twin sister today. Continue DNR/DNI status. * Convert to comfort care measures this afternoon remains in ICU due to hypoxic respiratory failure, complexity of care, needing Levophed intermittently, especially with HD and now lung abscess Patient now refusing BiPAP and not tolerating high flow well Transition to nasal cannula with comfort care Appreciate input from palliative care and respiratory therapy Total Time Total Time Spent Total Time Spent (In Minutes): 15 Total Time Includes: Examination of the Patient and Other (speaking with family) Discharge Plan Discharge Items Patient Disposition: Discharge Diagnosis: acute respiratory failure with pneumonia covid pneumonia sepsis secondary to covid pneumonia acute renal failure requiring dialysis last treatment 11/02 via tunnel catheter swallowing dysfunction requiring tube feeding, felt secondary to critical illness pneumothorax-resolved, chest tube removed 10/26 no residual cavitary lung lesion, right upper lung Coding Level of Care Code D/C DAY MANAGEMENT <30 MINS Diagnoses Pneumonia due to 2019 novel coronavirus U07.1; J12.82 Bacterial pneumonia J15.9 Acute kidney injury N17.9 Severe sepsis A41.9; R65.20 Hypotension I95.9 Hoarseness of voice R49.0 Cavitary lesion of lung J98.4 Acute respiratory failure with hypoxemia J96.01
[2020-11-11 20:31] LABS: Fungitell (1-3)-B-D-Glucan >500 pg/mL
== END 2020-11-10 20:24 | disposition expired | DRG 870 ==
LOC: ED 18:21 → 2S 20:46 → SUATTDRO 20:46 → 2S 22:40 → 1E 10-11 16:51 → 3N 11-10 07:30